=== PATIENT | female | born 1935 | race Caucasian/White ===

== ENCOUNTER 2018-01-25 09:01 | Emergency (ER) | payer MEDICARE, OTHER, SELFPAY ==
[2018-01-25 09:09] VITALS: BMI 25.8
[2018-01-25 09:30] VITALS: BP 189/55; PULSE 60; RESP 21; O2SAT 98
--- NOTE | 2018-01-25 09:51 | DI.RAD.S_ITS ---
PROCEDURE: XR CHEST 2V INDICATIONS: dyspnea TECHNIQUE: 2 views of the chest were acquired. COMPARISON: [facility], , CHEST 2 VIEW, 08/08/2017, 12:32. FINDINGS: Surgical changes and devices: None. Lungs and pleura: No pleural effusions or pneumothorax. Lungs are clear. Mediastinum: Mediastinal contours are normal. Heart size is normal. There is aortic atherosclerosis. Bones and chest wall: No suspicious bony abnormalities. Soft tissues appear unremarkable. IMPRESSION: Stable chest. No acute cardiopulmonary process is evident. Dictated by: Gómez Nunez M.D. on 01/25/2018 at 9:20 Approved by: Gómez Nunez M.D. on 01/25/2018 at 9:20
--- NOTE | 2018-01-25 09:58 | ED_ITS ---
HPI - SOB/Dyspnea General Chief Complaint: Shortness of Breath/Dyspnea Stated Complaint: SENT OVER FROM CLINIC SHORTNESS OF BREATH Time Seen by Provider: 01/25/18 09:36 Source: patient Mode of arrival: ambulatory Limitations: no limitations History of Present Illness Patient complains of chest tightness and dyspnea over the last week. She states that she has chronic dyspnea and has had it for years; however she states this a little more persistent than usual. Patient denies fevers, cough, sputum production, or sick contacts. She denies chest pain. She states that she is on antibiotics for a urinary tract infection, and wonders if this is the cause of her blood pressure going high this morning. She states that when she discovered her blood pressure was high, she contacted her primary care physician 's office, and they told her to come here as her doctor is out of town. Patient states she otherwise feels very well. Patient states she has not felt anxious. She states that other than a lifelong heart murmur and some palpitations, she has no known heart problems. MD Complaint: shortness of breath Onset (ago): week(s) (One) Context: recent illness (UTI) Relieving factors: nothing Exacerbating factors: exertion (Mildly) Known history of: other (Patient has no COPD, asthma, congestive heart failure, or history of coronary artery disease.) Associated symptoms: denies other symptoms Treatment prior to arrival: none Related Data Home Medications Medication Instructions Recorded Confirmed ezetimibe [Zetia] 10 mg PO Q DAY #0 10/16/12 01/25/18 insulin glargine [Lantus U-100 1 dose SQ QAM #0 10/16/12 01/25/18 Insulin] levothyroxine 112 mcg PO DAILY #0 10/16/12 01/25/18 lisinopril [Zestril] 20 mg PO QDAY #0 10/16/12 01/25/18 amlodipine [Norvasc] 2.5 mg PO QDAY #0 11/26/15 01/25/18 insulin lispro [Humalog U-100 0 u SQ DIRECTED #0 05/31/16 01/25/18 Insulin] atenolol 25 mg PO DAILY 01/25/18 01/25/18 chlorthalidone 25 mg PO DAILY 01/25/18 01/25/18 doxycycline monohydrate 1 cap PO BID 01/25/18 01/25/18 hydrochlorothiazide 1 tab PO DAILY 01/25/18 01/25/18 warfarin 2 mg PO QPM 01/25/18 01/25/18 Allergies Allergy/AdvReac Type Severity Reaction Status Date / Time kiwi Allergy Severe ANAPHYLAXIS Verified 01/25/18 09:09 meperidine AdvReac Mild I GO NUTS Verified 01/25/18 09:09 morphine AdvReac Mild DIZZY Verified 01/25/18 09:09 Review of Systems Review of Systems All systems reviewed & are unremarkable except as noted in HPI and below Constitutional Denies chills, Denies fever(s), Denies lethargy and Denies weakness Eyes Denies change in vision, Denies eye discharge, Denies irritation and Denies loss of vision ENT Ears, Nose, Mouth, and Throat: Denies change in voice, Denies neck pain and Denies sore throat Cardiovascular Denies chest pain, Denies irregular heart rhythm, Denies lightheadedness, Denies palpitations, Reports dyspnea and Denies orthopnea Respiratory Denies cough, Reports dyspnea and Denies wheezing Gastrointestinal Gastrointestinal: Denies abdominal pain, Denies change in bowel habits, Denies diarrhea, Denies nausea and Denies vomiting Genitourinary Denies hematuria, Denies flank pain, Denies urinary incontinence and Denies urinary urgency Musculoskeletal Denies neck pain Integumentary/Breasts Denies pruritus, Denies erythema, Denies rash and Denies wounds Neurologic Denies confusion, Denies loss of vision and Denies weakness Psychiatric Denies anxiety, Denies confusion, Denies depression, Denies homicidal ideation and Denies suicidal ideation Endocrine Denies palpitations Hematologic/Lymphatic Denies easy bruising Allergic/Immunologic Denies wheezing PFSH Medical History Palpitations (Acute) HTN (hypertension) (Acute) Surgical History No pertinent past surgical history (Acute) Social History Smoking Status: Never smoker Exam Initial Vital Signs Initial Vital Signs: Vital Signs Pulse Rate 60 01/25/18 09:30 Respiratory Rate 21 01/25/18 09:30 Blood Pressure 189/55 H 01/25/18 09:30 Pulse Oximetry 98 01/25/18 09:30 Const General: cooperative and well developed Nutritional Appearance: well nourished Orientation: alert, awake, oriented x3 and not confused [facility] Head: normocephalic and atraumatic Ears: external ears normal Nose: external nose normal and No nasal discharge Face and sinus: face symmetric and No dry mucous membranes Mouth: oral mucosae normal and moist mucous membranes Teeth and gingiva: dentition normal Eyes General: appearance normal, both eyes and all related structures Eyelids: eyelids normal Conjunctivae: conjunctivae normal Sclera: sclerae normal Pupils: PERRL EOM: EOM intact bilaterally Neck Neck: normal visual inspection, trachea midline, No lymphadenopathy, No midline deformity and No JVD Lymphatic: No lymphedema Chest Chest: normal inspection of the chest Resp Effort & Inspection: normal respiratory effort, able to speak in complete sentences, no respiratory distress and no use of accessory muscles Auscultation: clear to auscultation bilaterally, no rales, no rhonchi and no wheezes Cardio Rate: regular rate Rhythm: regular rhythm Heart Sounds: no click, no gallops, no murmurs and no rubs Pulses: normal peripheral pulses GI Inspection: non-distended Palpation: soft, no hepatosplenomegaly, No guarding, No pulsatile mass and No tender Auscultation: normal bowel sounds Back/Spine/Pelvis Back: No CVA tenderness Cervical Spine: cervical ROM normal and No pain with cervical ROM Thoracic/Lumbar Spine: thoracic and lumbar spine normal to inspection Skin General: no rashes or lesions noted, No jaundice and No petechiae Neuro General: alert, oriented x3, gait normal and no focal motor deficits Speech: speech normal Extrem General: full ROM, no clubbing, cyanosis or edema, no pedal edema and no calf tenderness Psych Appearance: well kempt Mental Status: mental status grossly normal Attitude: cooperative Thought Content: normal and suicidality Judgment: judgment good Course Course Narrative: Patient was quite well-appearing, and her respiratory exam was normal. Additionally, she was able to ambulate to and from the bathroom with absolutely no trouble whatsoever. Patient's EKG was unremarkable for acute issues at this time. I did work the patient up with a BNP and a chest x- ray. BNP was found to be mildly elevated at 340. Remainder of her workup was unremarkable. Orders Ordered: ED Orders 01/25/18 09:14 EKG-12 Lead Routine MDM - SOB/Dyspnea Medical Records Attestation: I reviewed the patient's medical records. Lab Data Lab Results 10/11/18 Range/Units 10:20 B-Natriuretic Peptide 340.0 H (<100) ECG Data Attestation: I personally reviewed and interpreted this ECG as follows: Interpretation: 12 lead EKG performed on January 25, 2018 at 0914: Regular ventricular rhythm with a rate of 61 beats per minute DC interval 168 milliseconds QRS duration 100 millisecond QTC interval 449 millisecond no ectopy interpretation: Sinus rhythm with occasional supraventricular premature complexes; moderate ST depression. Abnormal EKG as interpreted by ED MD. Discharge Plan Departure Patient Disposition: Home Clinical Impression: Dyspnea Discharge Date/Time: 01/25/18 11:47 Interventions: ED Discharge Assessment Last Done: 01/25/18 11:35 Instructions: DI for Shortness of Breath Activity Restrictions/Additional Instructions: Your chest x-ray looks good. Your lab for congestive heart failure was mildly elevated, which has been in the past. Please discuss with your doctor whether you need to be on medication for this. No emergent cause of your symptoms has been found. Prescriptions: No Action insulin glargine [Lantus U-100 Insulin] 100 UNIT/1 ML solution 1 dose SQ QAM Qty: 0 RF: 0 lisinopril [Zestril] 20 MG tablet 20 mg PO QDAY Qty: 0 RF: 0 levothyroxine 112 mcg Tablet 112 mcg PO DAILY Qty: 0 RF: 0 ezetimibe [Zetia] 10 MG tablet 10 mg PO Q DAY Qty: 0 RF: 0 amlodipine [Norvasc] 2.5 MG tablet 2.5 mg PO QDAY Qty: 0 RF: 0 insulin lispro [Humalog U-100 Insulin] 100 UNIT/1 ML solution SQ DIRECTED Qty: 0 RF: 0 atenolol 25 mg tablet 25 mg PO DAILY RF: 0 chlorthalidone 25 mg tablet 25 mg PO DAILY RF: 0 doxycycline monohydrate 100 mg capsule 1 cap PO BID RF: 0 warfarin 1 mg tablet 2 mg PO QPM RF: 0 hydrochlorothiazide 12.5 mg tablet 1 tab PO DAILY RF: 0 Referrals: Benigno Mahan MD [Primary Care Provider] -
[2018-01-25 10:00] VITALS: BP 185/46; PULSE 58; RESP 20; O2SAT 98
[2018-01-25 10:30] VITALS: BP 155/59; PULSE 62; RESP 13; O2SAT 99
[2018-01-25 11:07] VITALS: BP 151/45; PULSE 57; RESP 14; O2SAT 98
== END 2018-01-25 11:47 | disposition home or self-care (01) ==
PROVIDERS: Emergency Provider Emergency Medicine; PCP Family Medicine
DX: R06.00 Dyspnea, unspecified (principal); R07.89 Other chest pain
CPT/HCPCS: 36415; 71046; 83880; 93005; 93010; 99283; 99285

== ENCOUNTER → 2018-03-21 08:17 | Outpatient (CLI) | payer MEDICARE, OTHER, SELFPAY ==
--- NOTE | 2018-03-21 09:39 | P.PCN_ITS ---
Cardiac Stress Test Report Referral & Results Date Patient Seen: 03/21/18 Requesting provider: Benigno Mahan Indication: Dyspnea Rest ECG: Unremarkable Procedure Note: Today following both written and verbal informed consent the patient was exercised according to a standard Shukri protocol patient went for a total of 5 min 44 sec achieving a maximum heart rate of 140 for maximum systolic blood pressure of 170 for. This is approximately 7.0 METS. Exercise was terminated at this point because of inability the patient to continue. Patient was also given Cardiolite through a previously started Hep-Lock IV by the nuclear reactor operator approximately 1 minute prior to the cessation of exercise. Patient's oxygen saturation remained normal throughout With exercise she did develop up to about a mm of initially flat then downsloping ST segment depression in the inferior leads in leads V3 through V6. With cessation of activity the lateral leads rapidly returned to baseline but the inferior leads became more pronounced downsloping without as much depression. The slowly began to return to baseline as well over the 2-3 minutes of recovery Occasional PVCs identified at and exercise and early recovery Functional aerobic impairment rates-10% on the active scale or 10% better than average Impression: Evidence of ischemia in the inferior and far lateral leads as above. Perfusion imaging will be reported separately based on Cardiolite that was administered Excellent exercise capacity Please note: Actual ECG tracings can be found in the PACS system.
--- NOTE | 2018-03-22 18:05 | DI.NM.S_ITS ---
DATE OF SERVICE: 03/21/2018 PROCEDURE PERFORMED: Exercise treadmill stress and rest myocardial perfusion imaging with gating to assess ejection fraction and regional wall motion. ORDERING PROVIDER: Benigno Mahan MD INDICATIONS: The patient is an 82-year-old female with exertional dyspnea. EXERCISE TREADMILL TESTING:: The patient was able to exercise for a total of 5 minutes 44 seconds on a standard Shukri protocol suggesting good exercise capacity with an LAUREL of -10%. She had normal heart rate and blood pressure response to exercise, achieving a maximum heart rate of 144 bpm (105% of her predicted maximum). Her resting ECG shows baseline ST-segment abnormalities in the inferolateral leads which become accentuated with stress but remain nonspecific because of the baseline abnormality. She had no apparent chest discomfort. Oxygen saturation apparently was normal throughout. There were rare isolated PVCs but no concerning arrhythmia. At 5 minutes 8 seconds of exercise, at heart rate of 132 bpm, 26.4 mCi of technetium-99 Myoview was injected and the patient was imaged 15 minutes later using a gated SPECT acquisition protocol. The patient returned the following day and was reinjected with an additional 25.4 mCi of technetium-99 Myoview and was imaged 30 minutes later, again using a gated SPECT acquisition protocol. FINDINGS: 1. Raw Data: There is fairly good myocardial tracer uptake, although mild-to- moderate breast attenuation is present. The lung/heart ratio is normal at 0.39 with a normal TID ratio of 0.89. 2. Quantitative Gated SPECT: Post stress ejection fraction is estimated at 83% without any focal wall motion abnormality. The resting ejection fraction is estimated at 81% with a normal resting end-diastolic volume of 78 mL. 3. Myocardial Perfusion Imaging: Post stress supine images shows a fairly normal myocardial perfusion pattern with a very subtle defect in the distal inferolateral segment that completely resolves on prone imaging, revealing a completely normal perfusion pattern. There are no other concerning perfusion defects. The resting images show an identical perfusion pattern without any clear areas of improvement. CONCLUSION: 1. Normal myocardial perfusion study. 2. Small, subtle fixed distal inferolateral defect that resolves on prone imaging consistent with attenuation artifact. There is no evidence for any concerning myocardial ischemia or previous myocardial infarction. 3. Normal left ventricular systolic function without any focal wall motion abnormalities and normal left ventricular volumes. 4. Good exercise capacity with an LAUREL of -10% without angina. While there are some ST depressions noted, this is nonspecific because of baseline ST-segment abnormalities. Oxygen saturation remainsed normal throughout the study. 5. Compared with the previous study of 02/21/2017, an identical perfusion pattern is identified. Left ventricular systolic function is also unchanged, if not somewhat improved, on today's study. She had ST depression on her previous study that was felt to represent a false-positive. Thus, there has been no significant change from the previous exam. Jackie Orta - RS/shawna/ab doc#: [id number]/job#: [id number] dd: 03/22/2018 12:48:00 dt: 03/22/2018 17:47:00 DICTATING MD/COPIES TO: Benigno De Souza MD; Benigno Mahan MD COPIES MNE: OWEN TEJADA
== END ==
PROVIDERS: PCP Family Medicine; Visit Provider Family Medicine
DX: I25.9 Chronic ischemic heart disease, unspecified (principal); R06.00 Dyspnea, unspecified
CPT/HCPCS: 78452; 93016; 93017; 93018; A9502

== ENCOUNTER → 2018-05-04 12:41 | Outpatient (CLI) | payer MEDICARE, OTHER, SELFPAY ==
--- NOTE | 2018-05-04 | DI.US.S_ITS ---
PROCEDURE: US ARTERIAL DUPLEX LE BI INDICATIONS: Peripheral vascular disease, unspecified TECHNIQUE: Color and pulse Doppler interrogation was performed of both lower extremity arterial systems, with image documentation. COMPARISON: None. FINDINGS: Right lower extremity: Common femoral artery: 106 cm/sec, with biphasic flow. Deep femoral artery: 74 cm/sec, with biphasic flow. Proximal superficial femoral artery: 112 cm/sec, with biphasic flow. Mid superficial femoral artery: 96 cm/sec, with biphasic flow. Distal superficial femoral artery: 119 cm/sec, with biphasic flow. Popliteal artery: 89 cm/sec, with biphasic flow. Posterior tibial artery: 125 cm/sec, with biphasic flow. Anterior tibial artery/dorsalis pedis: No flow seen distally. Ortiz-scale imaging description: Atherosclerotic plaque can be seen. Left lower extremity: Common femoral artery: 142 cm/sec, with triphasic flow. Deep femoral artery: 73 cm/sec, with biphasic flow. Proximal superficial femoral artery: 120 cm/sec, with triphasic flow. Mid superficial femoral artery: 110 cm/sec, with triphasic flow. Distal superficial femoral artery: 90 cm/sec, with biphasic flow. Popliteal artery: 111 cm/sec, with monophasic flow. Posterior tibial artery: 76 cm/sec, with monophasic flow. Anterior tibial artery/dorsalis pedis: No flow can be seen distally Ortiz-scale imaging description: Atherosclerotic plaque can be seen throughout. IMPRESSION: Occluded bilateral distal anterior tibial arteries. Atherosclerotic plaque seen throughout. Dictated by: Garrison Naranjo M.D. on 05/04/2018 at 15:00 Approved by: Garrison Naranjo M.D. on 05/04/2018 at 15:04
== END ==
PROVIDERS: PCP Family Medicine; Visit Provider Family Medicine
DX: I70.203 Unspecified atherosclerosis of native arteries of extremities, bilateral legs (principal)
CPT/HCPCS: 93925

== ENCOUNTER → 2018-05-08 15:04 | Outpatient (CLI) | payer MEDICARE, OTHER, SELFPAY | PROVIDERS: PCP Family Medicine; Visit Provider Family Medicine | DX: I73.9 Peripheral vascular disease, unspecified (principal); L97.819 Non-pressure chronic ulcer of other part of right lower leg with unspecified severity; L97.829 Non-pressure chronic ulcer of other part of left lower leg with unspecified severity; I87.2 Venous insufficiency (chronic) (peripheral); E11.622 Type 2 diabetes mellitus with other skin ulcer; L08.9 Local infection of the skin and subcutaneous tissue, unspecified; Z79.52 Long term (current) use of systemic steroids | CPT/HCPCS: 11042; 87070; 87075; 87205 ==

== ENCOUNTER → 2018-05-15 14:26 | Outpatient (CLI) | payer MEDICARE, OTHER, SELFPAY | PROVIDERS: PCP Family Medicine; Visit Provider Family Medicine | DX: I70.238 Atherosclerosis of native arteries of right leg with ulceration of other part of lower leg (principal); L97.812 Non-pressure chronic ulcer of other part of right lower leg with fat layer exposed; E11.622 Type 2 diabetes mellitus with other skin ulcer; Z79.52 Long term (current) use of systemic steroids | CPT/HCPCS: 11042 ==

== ENCOUNTER → 2018-05-22 14:29 | Outpatient (CLI) | payer MEDICARE, OTHER, SELFPAY | PROVIDERS: PCP Family Medicine; Visit Provider Family Medicine | DX: I87.2 Venous insufficiency (chronic) (peripheral) (principal); I70.203 Unspecified atherosclerosis of native arteries of extremities, bilateral legs; L97.812 Non-pressure chronic ulcer of other part of right lower leg with fat layer exposed; T23.222A Burn of second degree of single left finger (nail) except thumb, initial encounter; E11.622 Type 2 diabetes mellitus with other skin ulcer; Z79.52 Long term (current) use of systemic steroids | CPT/HCPCS: 16020; 97597; 99213 ==

== ENCOUNTER → 2018-05-29 10:01 | Outpatient (CLI) | payer MEDICARE, OTHER, SELFPAY | PROVIDERS: PCP Family Medicine; Visit Provider Family Medicine | DX: I87.2 Venous insufficiency (chronic) (peripheral) (principal); L97.812 Non-pressure chronic ulcer of other part of right lower leg with fat layer exposed; E11.622 Type 2 diabetes mellitus with other skin ulcer; I70.203 Unspecified atherosclerosis of native arteries of extremities, bilateral legs; Z79.52 Long term (current) use of systemic steroids | CPT/HCPCS: 99213 ==

== ENCOUNTER → 2018-06-05 13:21 | Outpatient (CLI) | payer MEDICARE, OTHER, SELFPAY | PROVIDERS: PCP Family Medicine; Visit Provider Family Medicine | DX: I87.2 Venous insufficiency (chronic) (peripheral) (principal); L97.812 Non-pressure chronic ulcer of other part of right lower leg with fat layer exposed; E11.622 Type 2 diabetes mellitus with other skin ulcer; Z79.52 Long term (current) use of systemic steroids; I70.203 Unspecified atherosclerosis of native arteries of extremities, bilateral legs | CPT/HCPCS: 87070; 87075; 87077; 87147; 87186; 87205; 99213 ==

== ENCOUNTER → 2018-06-12 13:26 | Outpatient (CLI) | payer MEDICARE, OTHER, SELFPAY | PROVIDERS: PCP Family Medicine; Visit Provider Family Medicine | DX: I87.2 Venous insufficiency (chronic) (peripheral) (principal); I70.203 Unspecified atherosclerosis of native arteries of extremities, bilateral legs; L97.812 Non-pressure chronic ulcer of other part of right lower leg with fat layer exposed; E11.622 Type 2 diabetes mellitus with other skin ulcer; Z79.52 Long term (current) use of systemic steroids; L08.9 Local infection of the skin and subcutaneous tissue, unspecified; B95.7 Other staphylococcus as the cause of diseases classified elsewhere | CPT/HCPCS: 97597; 99213 ==

== ENCOUNTER → 2018-06-12 14:17 | Outpatient (CLI) | payer MEDICARE, OTHER, SELFPAY ==
--- NOTE | 2018-06-12 | DI.US.S_ITS ---
PROCEDURE: US VENOUS INSUFFICIENCY LTD INDICATIONS: VENOUS INSUFFICIENCY. History of right lateral calf nonhealing wound since January 2018. TECHNIQUE: Real time scanning was performed of the lower extremity venous system, with imaging documentation, as well as Color and pulse Doppler interrogation. COMPARISON: [facility], , US ARTERIAL DUPLEX LE BI, 05/04/2018, 13:09. [facility], US, PVE UNILATERAL RIGHT, 05/27/2016, 17:46. [facility], , RENAL COMPLETE, 04/30/2015, 12:48. [facility], , ABDOMEN COMPLETE, 07/22/2011, 8:08. FINDINGS: RIGHT LOWER EXTREMITY: The deep veins are normally compressible, and free of intraluminal thrombus. Color and pulse Doppler demonstrate normal intravascular flow. There is normal augmentation with distal compression maneuver. Great saphenous vein (GSV): Saphenofemoral junction (SFJ): 5 mm. No reflux. Proximal GSV: 4.5 mm. No reflux. Mid GSV: 4.6 mm. Venous reflux identified. Distal GSV: 3.5 mm. Venous reflux identified. Calf GSV: 3.1 mm proximally and 2.1 mm at the mid calf. Venous reflux is identified in the proximal calf GSV. Small saphenous vein (SSV): The SSV measures 5 mm near the saphenopopliteal junction and demonstrates venous reflux. The SSV measures 9 mm in the proximal calf and demonstrates venous reflux. The SSV measures 3 mm in the mid calf and demonstrates venous reflux. [employer] veins: There is a planer feeder vein in the right thigh approximately 20 cm proximal/superior to the right knee and 8 cm posterior, with a diameter of 2.2 mm and demonstrating venous reflux. There is a planer feeder vein in the right calf measuring 18 cm proximal/superior to the right heel and 8 cm posterior, with no venous reflux seen. Additional findings: There is a prominent varicose vein which extends posteriorly to the area of the patient's reported wound approximately 32 cm from the right heel. IMPRESSION: 1. No deep venous thrombosis of the right lower extremity. 2. Venous reflux identified within portions of the right great saphenous vein and right small saphenous vein as described above. There is additionally venous reflux within a planer feeder vein of the right thigh approximately 20 cm proximal/superior to the right knee. 3. Right lower extremity varicose vein identified in the region of the patient's reported area of nonhealing wound. Dictated by: Carmine Alaniz M.D. on 06/12/2018 at 17:52 Approved by: Carmine Alaniz M.D. on 06/12/2018 at 18:12
== END ==
PROVIDERS: PCP Family Medicine; Visit Provider Family Medicine
DX: I87.2 Venous insufficiency (chronic) (peripheral) (principal); E11.622 Type 2 diabetes mellitus with other skin ulcer; I70.203 Unspecified atherosclerosis of native arteries of extremities, bilateral legs; L97.812 Non-pressure chronic ulcer of other part of right lower leg with fat layer exposed; L08.9 Local infection of the skin and subcutaneous tissue, unspecified; B95.7 Other staphylococcus as the cause of diseases classified elsewhere; Z79.52 Long term (current) use of systemic steroids
CPT/HCPCS: 93971; 97597

== ENCOUNTER → 2018-06-19 13:34 | Outpatient (CLI) | payer MEDICARE, OTHER, SELFPAY | PROVIDERS: PCP Family Medicine; Visit Provider Family Medicine | DX: I87.2 Venous insufficiency (chronic) (peripheral) (principal); I70.238 Atherosclerosis of native arteries of right leg with ulceration of other part of lower leg; L97.812 Non-pressure chronic ulcer of other part of right lower leg with fat layer exposed; E11.622 Type 2 diabetes mellitus with other skin ulcer; B95.7 Other staphylococcus as the cause of diseases classified elsewhere; L08.9 Local infection of the skin and subcutaneous tissue, unspecified | CPT/HCPCS: 97597 ==

== ENCOUNTER 2018-06-25 15:15 | Outpatient (RCR) | payer MEDICARE, OTHER, SELFPAY ==
--- NOTE | 2018-06-21 16:40 | PT.OIE ---
Current Diagnoses Benign paroxysmal vertigo, unspecified ear (06/21/18) Benign paroxysmal vertigo, bilateral (06/21/18) Dizziness and giddiness (06/21/18) Past Medical History (Last Updated 01/25/18 @ 09:57 by Anne-Marie Hand MD) Palpitations (Acute) HTN (hypertension) (Acute) Past Surgical History (Last Updated 01/25/18 @ 09:57 by Anne-Marie Hand MD) No pertinent past surgical history (Acute) Provider Visit Care Team Role Provider Type Benigno Mahan MD Attending Provider Physician Primary Care Provider Specialty: Family Practice Address: [facility] [place], [address] Email: [email or web address] Physical Therapy Initial Evaluation PT-OP-A Visit Information Start: 06/21/18 16:23 Freq: Status: Active Protocol: Document 06/21/18 15:15 DCW (Rec: 06/21/18 16:40 DCW [id number]) Out-Patient Physical Therapy Visit Information Visit Information Visit Type Initial Evaluation Visit Start Time 15:15 Visit Stop Time 16:00 Total Visit Minutes 45 Visit Number 1 Number of DEBURRER STRIP Visits 0 Evaluation Information Evaluation Date 06/21/18 PT-OP-B Current Condition Start: 06/21/18 16:23 Freq: Status: Active Protocol: Document 06/21/18 15:15 DCW (Rec: 06/21/18 16:40 DCW [id number]) Current Condition History of Current Condition Onset Date 3 weeks Current Complaints Sudden onset of position- dependent vertigo History of Current Condition Pt is an 82 year old female complaining of a three week history motion-induced vertigo . Pt notes that three weeks ago, she stood up from bed and the whole room started going in circles. She was seen by her PCP, who gave her Meclizine, which she reports helped make her symptoms less severe, but it was still bad when getting out of bed. Pt reports that following her vertigo getting out of bed, she still feels disoriented the rest of the day. Pt reports episodes last 1-2 minutes. Pt denies recent hearing changes, tinnitus, diplopia, dysarthria, discoordination, or decreased mentation/consciousness. Pt reports symptoms are waxing/ waning in nature. Pt denies hx of arrhythmia, head trauma, seizure, migraines, back/neck problems, CVA, anxiety/panic disorders, depression, or excessive smoking or drinking. Pt does note a history of HTN , High cholesterol, and DM II, however believes they are all well controlled with medication. Current Functional Impairments (Reported) Functional Limitations- ADL's Rotational vertigo when exiting bed in the morning PT-OP-C Subjective Start: 06/21/18 16:23 Freq: Status: Active Protocol: Document 06/21/18 15:15 DCW (Rec: 06/21/18 16:40 DCW [id number]) Patient Questionnaires Dizziness Handicap Inventory DHI Score 40% DHI Functional Impairment 40 to 59% Impaired (Score 40- 59) PT-OP-O Vestibular Start: 06/21/18 16:23 Freq: Status: Active Protocol: Document 06/21/18 15:15 DCW (Rec: 06/21/18 16:40 DCW [id number]) Vestibular Assessment Screening Tests Vestibular Artery Screen Negative Sharp-Nimo Test Negative Auditory Tests Koo Test Negative Rinne Test Negative Air Conduction Results Equal Visual Testing Smooth Pursuits Horizontal Negative Smooth Pursuits Vertical Negative Saccades Horizontal Negative Gaze Evoked Nystagmus With Fixation Negative Gaze Evoked Nystagmus Without Fixation Negative Heave Test Positive Bilateral Thrust Head Positive Bilateral Head Shake Negative Spontaneous Nystagmus Negative Positional Testing [place]-Hallpike Negative Left Negative Right Rolling Test Negative Left Negative Right Sidelying Test Negative Left Negative Right Comments Vestibular Comments Due to limitations of her cervical spine and increased thoracic kyphosis, pt was unable to properly position herself during Jose Alberto-Hallpike. Side-lying test was then performed bilaterally. PT-OP-Q Treatments Start: 06/21/18 16:23 Freq: Status: Active Protocol: Document 06/21/18 15:15 DCW (Rec: 06/21/18 16:40 DCW [id number]) Canalithic Repositioning BPPV Treatment Vasyl Affected Canal(s) Right posterior? Reps x1 PT-OP-T Assessment and Plan Start: 06/21/18 16:23 Freq: Status: Active Protocol: Document 06/21/18 15:15 DCW (Rec: 06/21/18 16:40 DCW [id number]) Physical Therapy Assessment Rehab Potential Rehabilitation Potential Good Evaluation Complexity Number of Personal Factors/Comorbidities 0 Number of Body Systems Impaired 1-2 Clinical Presentation at Evaluation Unstable Impairments Impairments Balance Vestibular Goals Two Impairment Pt scored 40% disability on Dizziness Handicap Inventory Short Term Goal (STG) Pt to score at most 15% disability on DHI STG Duration 07/22/18 One Impairment Pt complains of rotational vertigo when getting out of bed Short Term Goal (STG) Pt to report no episodes of vertigo when exiting bed for one full week STG Duration 07/22/18 Assessment Summary Assessment Pt's entire vestibular examination was negative, with the exception of mildly positive thrust and heave tests, which is fairly common with age-related vestibular loss. Pt's history, however, is strongly suggestive of BPPV , and as all other testing was negative, and her off-handed comment regarding thinking she may be somewhat worse if she lays on her right side, a right-sided Vasyl maneuver was performed, as the posterior canal is by far (~95%) the most likely semi-circular canal to have loose otoconia. Following the Vasyl maneuver, pt reported that she actually feels quite a bit better already. Pt was educated on BPPV, expectations for treatment, possible recurrence (BPPV has a ~50% recurrence rate in the five years following treatment), and post -Vasyl restrictions. Pt to return in ~1 week for a follow -up appointment, and intermittently afterward as indicated for treatment of BPPV. Physical Therapy Plan Frequency and Duration Frequency of Treatment 1x/Week Duration of Treatment 6 weeks Plan of Care Start Date 06/21/18 Plan of Care End Date 08/02/18 Therapeutic Interventions Therapeutic Interventions Balance Training Canalithic Repositioning Vestibular Rehabilitation Next Visit Focus/Plan Next Note Type Treatment Note Next Visit Plan Further positional testing and CRM as indicated
--- NOTE | 2018-06-21 16:40 | PT.OPPOC ---
Current Diagnoses Benign paroxysmal vertigo, unspecified ear (06/21/18) Benign paroxysmal vertigo, bilateral (06/21/18) Dizziness and giddiness (06/21/18) Provider Visit Care Team Role Provider Type Benigno Mahan MD Attending Provider Physician Primary Care Provider Specialty: Family Practice Address: [facility] [place], [address] Email: [email or web address] Plan Of Care PT-OP-T Assessment and Plan Start: 06/21/18 16:23 Freq: Status: Active Protocol: Document 06/21/18 15:15 DCW (Rec: 06/21/18 16:40 DCW [id number]) Physical Therapy Assessment Rehab Potential Rehabilitation Potential Good Evaluation Complexity Number of Personal Factors/Comorbidities 0 Number of Body Systems Impaired 1-2 Clinical Presentation at Evaluation Unstable Impairments Impairments Balance Vestibular Goals Two Impairment Pt scored 40% disability on Dizziness Handicap Inventory Short Term Goal (STG) Pt to score at most 15% disability on DHI STG Duration 07/22/18 One Impairment Pt complains of rotational vertigo when getting out of bed Short Term Goal (STG) Pt to report no episodes of vertigo when exiting bed for one full week STG Duration 07/22/18 Assessment Summary Assessment Pt's entire vestibular examination was negative, with the exception of mildly positive thrust and heave tests, which is fairly common with age-related vestibular loss. Pt's history, however, is strongly suggestive of BPPV , and as all other testing was negative, and her off-handed comment regarding thinking she may be somewhat worse if she lays on her right side, a right-sided Vasyl maneuver was performed, as the posterior canal is by far (~95%) the most likely semi-circular canal to have loose otoconia. Following the Vasyl maneuver, pt reported that she actually feels quite a bit better already. Pt was educated on BPPV, expectations for treatment, possible recurrence (BPPV has a ~50% recurrence rate in the five years following treatment), and post -Vasyl restrictions. Pt to return in ~1 week for a follow -up appointment, and intermittently afterward as indicated for treatment of BPPV. Physical Therapy Plan Frequency and Duration Frequency of Treatment 1x/Week Duration of Treatment 6 weeks Plan of Care Start Date 06/21/18 Plan of Care End Date 08/02/18 Therapeutic Interventions Therapeutic Interventions Balance Training Canalithic Repositioning Vestibular Rehabilitation Next Visit Focus/Plan Next Note Type Treatment Note Next Visit Plan Further positional testing and CRM as indicated Plan of Care Dates Plan of Care Start Date 06/21/18 Plan of Care End Date 08/02/18 Please Sign and Return: I have reviewed this Plan of Care and certify that the skilled therapy services above are required to meet the patient?s needs. Physician Signature Date Printed Name and Credentials Clinical Instructor Signature Printed Name and Credentials
--- NOTE | 2018-06-25 16:19 | PT.OTN ---
Current Diagnoses Benign paroxysmal vertigo, bilateral (06/25/18) Physical Therapy Treatment Note PT-OP-A Visit Information Start: 06/21/18 16:23 Freq: Status: Active Protocol: Document 06/25/18 15:30 DCW (Rec: 06/25/18 16:19 DCW [id number]) Out-Patient Physical Therapy Visit Information Visit Information Visit Type Treatment Note Visit Note Pt 15 minutes late Visit Start Time 15:30 Visit Stop Time 15:48 Total Visit Minutes 18 Visit Number 2 Number of MANAGER OF APPLICATION DEVELOPMENT Visits 0 Evaluation Information Evaluation Date 06/21/18 PT-OP-B Current Condition Start: 06/21/18 16:23 Freq: Status: Active Protocol: Document 06/21/18 15:15 DCW (Rec: 06/21/18 16:40 DCW [id number]) Current Condition History of Current Condition Onset Date 3 weeks Current Complaints Sudden onset of position- dependent vertigo History of Current Condition Pt is an 82 year old female complaining of a three week history motion-induced vertigo . Pt notes that three weeks ago, she stood up from bed and the whole room started going in circles. She was seen by her PCP, who gave her Meclizine, which she reports helped make her symptoms less severe, but it was still bad when getting out of bed. Pt reports that following her vertigo getting out of bed, she still feels disoriented the rest of the day. Pt reports episodes last 1-2 minutes. Pt denies recent hearing changes, tinnitus, diplopia, dysarthria, discoordination, or decreased mentation/consciousness. Pt reports symptoms are waxing/ waning in nature. Pt denies hx of arrhythmia, head trauma, seizure, migraines, back/neck problems, CVA, anxiety/panic disorders, depression, or excessive smoking or drinking. Pt does note a history of HTN , High cholesterol, and DM II, however believes they are all well controlled with medication. Current Functional Impairments (Reported) Functional Limitations- ADL's Rotational vertigo when exiting bed in the morning PT-OP-C Subjective Start: 06/21/18 16:23 Freq: Status: Active Protocol: Document 06/25/18 15:30 DCW (Rec: 06/25/18 16:19 DCW [id number]) OP-PT Subjective Patient Comments Patient Comments I feel much better, most of the time. Every now and then, theres just a little bit of an issue. PT-OP-O Vestibular Start: 06/21/18 16:23 Freq: Status: Active Protocol: Document 06/21/18 15:15 DCW (Rec: 06/21/18 16:40 DCW [id number]) Vestibular Assessment Screening Tests Vestibular Artery Screen Negative Sharp-Nimo Test Negative Auditory Tests Koo Test Negative Rinne Test Negative Air Conduction Results Equal Visual Testing Smooth Pursuits Horizontal Negative Smooth Pursuits Vertical Negative Saccades Horizontal Negative Gaze Evoked Nystagmus With Fixation Negative Gaze Evoked Nystagmus Without Fixation Negative Heave Test Positive Bilateral Thrust Head Positive Bilateral Head Shake Negative Spontaneous Nystagmus Negative Positional Testing [place]-Hallpike Negative Left Negative Right Rolling Test Negative Left Negative Right Sidelying Test Negative Left Negative Right Comments Vestibular Comments Due to limitations of her cervical spine and increased thoracic kyphosis, pt was unable to properly position herself during Jose Alberto-Hallpike. Side-lying test was then performed bilaterally. PT-OP-Q Treatments Start: 06/21/18 16:23 Freq: Status: Active Protocol: Document 06/25/18 15:30 DCW (Rec: 06/25/18 16:19 DCW [id number]) Canalithic Repositioning BPPV Treatment Vasyl Affected Canal(s) Right posterior? Reps x1 PT-OP-T Assessment and Plan Start: 06/21/18 16:23 Freq: Status: Active Protocol: Document 06/25/18 15:30 DCW (Rec: 06/25/18 16:19 DCW [id number]) Physical Therapy Assessment Impairments Impairments Balance Vestibular Goals Two Impairment Pt scored 40% disability on Dizziness Handicap Inventory Short Term Goal (STG) Pt to score at most 15% disability on DHI STG Duration 07/22/18 One Impairment Pt complains of rotational vertigo when getting out of bed Short Term Goal (STG) Pt to report no episodes of vertigo when exiting bed for one full week STG Duration 07/22/18 Assessment Summary Assessment Pt examination continues to be negative, but with her continued history which is strongly suggestive of BPPV, along with her reports of substantial improvement following her right-sided Vasyl, 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 Another R-sided Vasyl was performed today, but pt experienced no real symptoms during procedure. Pt to call for follow-up visit with change or worsening symptoms. If she does not call for a follow-up visit within one month, she will be discharged at that time. Physical Therapy Plan Frequency and Duration Frequency of Treatment 1x/Week Duration of Treatment 6 weeks Plan of Care Start Date 06/21/18 Plan of Care End Date 08/02/18 Therapeutic Interventions Therapeutic Interventions Balance Training Canalithic Repositioning Vestibular Rehabilitation Next Visit Focus/Plan Next Note Type Treatment Note Next Visit Plan Further positional testing and CRM as indicated
--- NOTE | 2018-07-27 13:55 | PT.OPDS ---
Current Diagnoses Benign paroxysmal vertigo, bilateral (06/25/18) Provider Visit Care Team Role Provider Type Benigno Mahan MD Attending Provider Physician Primary Care Provider Specialty: Family Practice Address: [facility] [place], [address] Email: [email or web address] Visit Number Visit Number 2 Discharge Summary PT-OP-B Current Condition Start: 06/21/18 16:23 Freq: Status: Active Protocol: Document 06/21/18 15:15 DCW (Rec: 06/21/18 16:40 DCW [id number]) Current Condition History of Current Condition Onset Date 3 weeks Current Complaints Sudden onset of position- dependent vertigo History of Current Condition Pt is an 82 year old female complaining of a three week history motion-induced vertigo . Pt notes that three weeks ago, she stood up from bed and the whole room started going in circles. She was seen by her PCP, who gave her Meclizine, which she reports helped make her symptoms less severe, but it was still bad when getting out of bed. Pt reports that following her vertigo getting out of bed, she still feels disoriented the rest of the day. Pt reports episodes last 1-2 minutes. Pt denies recent hearing changes, tinnitus, diplopia, dysarthria, discoordination, or decreased mentation/consciousness. Pt reports symptoms are waxing/ waning in nature. Pt denies hx of arrhythmia, head trauma, seizure, migraines, back/neck problems, CVA, anxiety/panic disorders, depression, or excessive smoking or drinking. Pt does note a history of HTN , High cholesterol, and DM II, however believes they are all well controlled with medication. Current Functional Impairments (Reported) Functional Limitations- ADL's Rotational vertigo when exiting bed in the morning PT-OP-C Subjective Start: 06/21/18 16:23 Freq: Status: Active Protocol: Document 06/25/18 15:30 DCW (Rec: 06/25/18 16:19 DCW [id number]) OP-PT Subjective Patient Comments Patient Comments I feel much better, most of the time. Every now and then, theres just a little bit of an issue. PT-OP-O Vestibular Start: 06/21/18 16:23 Freq: Status: Active Protocol: Document 06/21/18 15:15 DCW (Rec: 06/21/18 16:40 DCW [id number]) Vestibular Assessment Screening Tests Vestibular Artery Screen Negative Sharp-Nimo Test Negative Auditory Tests Koo Test Negative Rinne Test Negative Air Conduction Results Equal Visual Testing Smooth Pursuits Horizontal Negative Smooth Pursuits Vertical Negative Saccades Horizontal Negative Gaze Evoked Nystagmus With Fixation Negative Gaze Evoked Nystagmus Without Fixation Negative Heave Test Positive Bilateral Thrust Head Positive Bilateral Head Shake Negative Spontaneous Nystagmus Negative Positional Testing [place]-Hallpike Negative Left Negative Right Rolling Test Negative Left Negative Right Sidelying Test Negative Left Negative Right Comments Vestibular Comments Due to limitations of her cervical spine and increased thoracic kyphosis, pt was unable to properly position herself during [place]-Hallpike. Side-lying test was then performed bilaterally. PT-OP-T Assessment and Plan Start: 06/21/18 16:23 Freq: Status: Active Protocol: Document 07/27/18 13:53 DCW (Rec: 07/27/18 13:55 DC [id number]) Physical Therapy Assessment Impairments Impairments Balance Vestibular Assessment Summary Assessment Pt was instructed to phone clinic and schedule a follow- up visit with continued or worsening symptoms. Pt has not scheduled any future visits, and will be discharged from skilled therapy at this time. Physical Therapy Plan Discharge Physical Therapy Discharge Reasons No Longer Attending PT Next Visit Focus/Plan Next Note Type Discharge Summary
== END 2018-08-28 11:57 ==
LOC: PHYS 15:15
PROVIDERS: PCP Family Medicine; Visit Provider Family Medicine
DX: H81.13 Benign paroxysmal vertigo, bilateral (principal)
CPT/HCPCS: 95992; 97140; 97161

== ENCOUNTER → 2018-06-26 13:18 | Outpatient (CLI) | payer MEDICARE, OTHER, SELFPAY | PROVIDERS: PCP Family Medicine; Visit Provider Family Medicine | DX: I87.2 Venous insufficiency (chronic) (peripheral) (principal); L97.812 Non-pressure chronic ulcer of other part of right lower leg with fat layer exposed; E11.622 Type 2 diabetes mellitus with other skin ulcer; Z79.52 Long term (current) use of systemic steroids; M79.604 Pain in right leg | CPT/HCPCS: 11042; 87070; 87075; 87077; 87186; 87205 ==

== ENCOUNTER → 2018-07-03 09:02 | Outpatient (CLI) | payer MEDICARE, OTHER, SELFPAY | PROVIDERS: PCP Family Medicine; Visit Provider Family Medicine | DX: I70.238 Atherosclerosis of native arteries of right leg with ulceration of other part of lower leg (principal); L97.812 Non-pressure chronic ulcer of other part of right lower leg with fat layer exposed; E11.622 Type 2 diabetes mellitus with other skin ulcer; L08.9 Local infection of the skin and subcutaneous tissue, unspecified | CPT/HCPCS: 97597; 99213 ==

== ENCOUNTER → 2018-07-10 09:51 | Outpatient (CLI) | payer MEDICARE, OTHER, SELFPAY | PROVIDERS: PCP Family Medicine; Visit Provider Family Medicine | DX: I70.238 Atherosclerosis of native arteries of right leg with ulceration of other part of lower leg (principal); L97.812 Non-pressure chronic ulcer of other part of right lower leg with fat layer exposed; E11.622 Type 2 diabetes mellitus with other skin ulcer | CPT/HCPCS: 97597 ==

== ENCOUNTER → 2018-07-11 15:28 | Outpatient (REF) | payer MEDICARE, OTHER, SELFPAY ==
[2018-07-11 15:42] LABS: INR 2.4 (0.9-1.3); Prothrombin Time 28.5 SECONDS (10.1-12.7)
== END ==
LOC: LAB 15:28
PROVIDERS: PCP Family Medicine; Visit Provider Family Medicine
DX: Z79.01 Long term (current) use of anticoagulants (principal)
CPT/HCPCS: 85610

== ENCOUNTER → 2018-07-12 14:23 | Outpatient (CLI) | payer MEDICARE, OTHER, SELFPAY | PROVIDERS: PCP Family Medicine; Visit Provider Family Medicine | DX: I70.238 Atherosclerosis of native arteries of right leg with ulceration of other part of lower leg (principal); L97.811 Non-pressure chronic ulcer of other part of right lower leg limited to breakdown of skin | CPT/HCPCS: 99212 ==

== ENCOUNTER → 2018-07-17 09:41 | Outpatient (CLI) | payer MEDICARE, OTHER, SELFPAY | PROVIDERS: PCP Family Medicine; Visit Provider Family Medicine | DX: I87.2 Venous insufficiency (chronic) (peripheral) (principal); L97.812 Non-pressure chronic ulcer of other part of right lower leg with fat layer exposed; E11.622 Type 2 diabetes mellitus with other skin ulcer | CPT/HCPCS: 97597 ==

== ENCOUNTER → 2018-07-23 17:12 | Outpatient (CLI) | payer MEDICARE, OTHER, SELFPAY ==
[2018-07-23 17:59] LABS: Appearance Urine UA SL CLOUDY; Bilirubin Urine UA NEGATIVE (NEGATIVE); Color Urine UA YELLOW; Glucose Urine UA NEGATIVE (Negative); Ketones Urine UA NEGATIVE (NEGATIVE); Leukocyte Esterase Urine UA 2+ (NEGATIVE); Nitrite Urine UA NEGATIVE (Negative); Occult Blood Urine UA 1+ (Negative); Protein Urine UA NEGATIVE (Negative); Specific Gravity Urine UA 1.025 (1.000-1.035); Urobilinogen Urine UA 0.2 E.U./dL (0.2); pH Urine UA 5.5 (4.5-8.0)
[2018-07-23 18:08] LABS: Amorphous Sediment Urine 1+; Bacteria Urine Few (2-10); Mucus Urine 1+ (Negative); RBC Urine 0-1/HPF (0-5/HPF); Squamous Epithelial Cell Urine 1-5 /HPF (0-5/HPF); WBC Urine >100/HPF (0-5/HPF)
== END ==
PROVIDERS: PCP Family Medicine; Visit Provider Family Medicine
DX: N39.0 Urinary tract infection, site not specified (principal)
CPT/HCPCS: 81001; 87077; 87086; 87186

== ENCOUNTER → 2018-07-24 09:04 | Outpatient (CLI) | payer MEDICARE, OTHER, SELFPAY | PROVIDERS: PCP Family Medicine; Visit Provider Family Medicine | DX: I87.2 Venous insufficiency (chronic) (peripheral) (principal); L97.812 Non-pressure chronic ulcer of other part of right lower leg with fat layer exposed; I70.203 Unspecified atherosclerosis of native arteries of extremities, bilateral legs; E11.622 Type 2 diabetes mellitus with other skin ulcer; Z79.52 Long term (current) use of systemic steroids | CPT/HCPCS: 97597 ==

== ENCOUNTER → 2018-07-31 09:44 | Outpatient (CLI) | payer MEDICARE, OTHER, SELFPAY | PROVIDERS: PCP Family Medicine; Visit Provider Family Medicine | DX: I70.238 Atherosclerosis of native arteries of right leg with ulceration of other part of lower leg (principal); L97.812 Non-pressure chronic ulcer of other part of right lower leg with fat layer exposed; E11.622 Type 2 diabetes mellitus with other skin ulcer; Z79.52 Long term (current) use of systemic steroids | CPT/HCPCS: 97597 ==

== ENCOUNTER 2018-08-08 16:05 | Emergency (ER) | payer MEDICARE, OTHER, SELFPAY ==
[2018-08-08] VITALS (8 sets, daily range): BP systolic 105–179; BP diastolic 40–82; PULSE 58–70; RESP 14–23; TEMP 36.4; O2SAT 94–100; BMI 25.8
--- NOTE | 2018-08-08 16:16 | DI.RAD.S_ITS ---
PROCEDURE: XR CHEST 1V INDICATIONS: chough sob TECHNIQUE: One view of the chest was acquired. COMPARISON: [facility], , XR CHEST 2V, 01/25/2018, 9:59. [facility], , CHEST 2 VIEW, 08/08/2017, 12:32. FINDINGS: Surgical changes and devices: None. Lungs and pleura: Lungs are clear. No pleural effusions or pneumothorax. Mediastinum: Mediastinal contours appear normal. Heart size is normal. Bones and chest wall: No suspicious bony lesions. Overlying soft tissues appear unremarkable. IMPRESSION: Normal for age, source of current cough and shortness of breath symptoms is not seen. Dictated by: Casimiro Jade M.D. on 08/08/2018 at 16:47 Approved by: Casimiro Jade M.D. on 08/08/2018 at 16:47
[2018-08-08] MEDS: ALBUTEROL/IPRATROPIUM 3 ML AMPUL INH (16:25)
--- NOTE | 2018-08-08 16:25 | ED_ITS ---
HPI - SOB/Dyspnea General Chief Complaint: Shortness of Breath/Dyspnea Stated Complaint: dehydration Time Seen by Provider: 08/08/18 16:10 Source: patient Mode of arrival: wheelchair Limitations: no limitations History of Present Illness Patient is an 82-year-old female sent in from her PCP for hypotension. She says she has not felt well for the last 5 days. She does have a cough denies any dizziness or lightheadedness. She has no chest pain. She states that she coughs only when she lies down. No known history of congestive heart failure. She denies any shortness of breath with exertion. She denies any fever. Decreased oral intake. MD Complaint: shortness of breath Related Data Home Medications Medication Instructions Recorded Confirmed Lantus U-100 Insulin 1 dose SQ QAM #0 10/16/12 08/08/18 ezetimibe [Zetia] 10 mg PO DAILY #0 10/16/12 08/08/18 lisinopril [Zestril] 20 mg PO DAILY #0 10/16/12 08/08/18 Humalog U-100 Insulin 0 u SQ DIRECTED #0 05/31/16 08/08/18 atenolol 25 mg PO DAILY 01/25/18 08/08/18 chlorthalidone 25 mg PO DAILY 01/25/18 08/08/18 warfarin 2 mg PO QPM 01/25/18 01/25/18 allopurinol 100 mg PO DAILY 08/08/18 08/08/18 amlodipine 5 mg PO DAILY 08/08/18 08/08/18 levothyroxine 125 mcg PO DAILY 08/08/18 08/08/18 prednisone 5 mg PO DAILY 08/08/18 08/08/18 rivaroxaban [Xarelto] 15 mg PO DAILY 08/08/18 08/08/18 Allergies Allergy/AdvReac Type Severity Reaction Status Date / Time kiwi Allergy Severe ANAPHYLAXIS Verified 08/08/18 16:11 meperidine AdvReac Mild I GO NUTS Verified 08/08/18 16:11 morphine AdvReac Mild DIZZY Verified 08/08/18 16:11 Review of Systems Review of Systems ROS Unobtainable: All systems reviewed & are unremarkable except as noted in HPI and below Constitutional Reports body ache(s), Denies fever(s) and Denies frequent falls Eyes Denies change in vision, Denies eye discharge, Denies irritation and Denies loss of vision Cardiovascular Denies chest pain, Denies irregular heart rhythm, Denies lightheadedness, Denies palpitations, Denies dyspnea, Denies dyspnea on exertion and Denies orthopnea Respiratory Denies cough, Denies dyspnea, Denies dyspnea on exertion and Denies wheezing Gastrointestinal Gastrointestinal: Denies abdominal pain, Denies change in bowel habits, Denies diarrhea, Denies nausea and Denies vomiting Musculoskeletal Denies back pain, Denies muscle weakness, Denies numbness and Denies tingling Integumentary/Breasts Denies pruritus, Denies erythema, Denies rash and Denies wounds Neurologic Denies frequent falls, Denies loss of vision, Denies numbness and Denies tingling Endocrine Denies palpitations Allergic/Immunologic Denies wheezing [facility] Medical History Palpitations (Acute) HTN (hypertension) (Acute) Surgical History No pertinent past surgical history (Acute) Social History (Updated 01/25/18 @ 09:57 by Anne-Marie Hand MD) Smoking Status: Never smoker Social History Smoking Status: Never smoker Exam Initial Vital Signs Initial Vital Signs: Vital Signs Pulse Rate 65 08/08/18 16:11 Respiratory Rate 18 08/08/18 16:11 Blood Pressure 170/66 H 08/08/18 16:11 Pulse Oximetry 97 08/08/18 16:11 GENERAL: Alert pleasant elderly female no acute distress HEENT: Head atraumatic,EOMI, pupils reactive, face symmetric, no JVD CARDIOVASCULAR: Regular rate and rhythm without murmurs, rubs or gallops. RESPIRATORY: Coughing with deep breaths ABDOMEN: Soft, nontender. Normoactive bowel sounds all 4 quadrants. No guarding or rebound. : No CVA tenderness EXTREMITIES: Normal range of motion, no clubbing or edema. Neurovascularly intact NEUROLOGICAL: Alert and oriented x4.Normal gait and speech. Cranial nerves II through XII grossly intact. SKIN: Warm, dry, no laceration, no petechiae, no rashes or lesions. Course Orders Ordered: ED Orders 08/08/18 16:14 EKG-12 Lead Stat 08/08/18 16:16 Consult to Respiratory Therapy Evaluate & Treat XR chest 1V Stat 08/08/18 16:20 B Type Natriuretic Peptide Stat Complete Blood Count AUTO DIFF Stat Comprehensive Metabolic Panel Stat Magnesium Stat Procalcitonin Stat Troponin & CK Cardiac Panel Stat 08/08/18 16:33 Lactate (Lactic Acid) Stat 08/08/18 18:22 Prothrombin Time INR Stat 08/08/18 18:42 Influenza A and B by PCR Rapid Stat Discontinued Medications Albuterol/Ipratropium (Duoneb) 3 ml INH NOW ONE Stop: 08/08/18 16:17 Last Admin: 08/08/18 16:25 Dose: 3 ml Sodium Chloride (Normal Saline 0.9%) 1,000 mls @ 1,000 mls/hr IV BOLUS ONE Stop: 08/08/18 18:15 Last Admin: 08/08/18 17:43 Dose: 1,000 mls/hr Sodium Chloride (Normal Saline 0.9%) 1,000 mls @ 1,000 mls/hr IV BOLUS ONE Stop: 08/08/18 18:15 Vital Signs - 8 hr 08/08/18 16:11 08/08/18 16:17 08/08/18 16:30 Temperature 97.5 F L Pulse Rate 65 66 67 Respiratory Rate 18 14 20 Blood Pressure 170/66 H Blood Pressure [Right Arm] 179/48 H Pulse Oximetry 97 100 08/08/18 16:48 08/08/18 18:00 08/08/18 18:30 Temperature Pulse Rate 60 64 63 Respiratory Rate 23 15 18 Blood Pressure Blood Pressure [Right Arm] 105/51 L 149/40 H 142/82 H Pulse Oximetry 98 98 100 MDM - SOB/Dyspnea Lab Data Attestation: I reviewed the patient's lab results. Result diagrams: 08/08/18 16:20 08/08/18 16:20 Lab Results 08/08/18 08/08/18 08/08/18 Range/Units 16:20 16:20 16:20 WBC 7.2 (4.5-11.0) X10^3/uL RBC 4.11 (4.0-5.2) X10^6/uL Hgb 11.6 L (12.0-16.0) g/dL Hct 34.5 L (36-46) % MCV 84.1 (80-100) fL MCH 28.3 (26-34) PG MCHC 33.7 (30-36) % RDW 15.4 H (11.6-14.8) % Plt Count 224 (150-400) X10^3/uL Neut % (Auto) 64.1 (50-75) % Lymph % (Auto) 18.3 L (25-40) % [place] % (Auto) 14.4 H (3-14) % Eos % (Auto) 2.3 (2-4) % Baso % (Auto) 0.9 (0-2) % Neut # (Auto) 4600 (8584-4685) /uL Lymph # (Auto) 1300 (1917-4104) /uL [place] # (Auto) 1000 H (0-900) /uL Eos # (Auto) 200 (0-450) /uL Baso # (Auto) 100 (0-100) /uL Sodium 135 L (137-145) mmol/L Potassium 3.8 (3.4-5.1) mmol/L Chloride 99 (98-107) mmol/L Carbon Dioxide 22 (22-32) mmol/L BUN 56 H (7-17) mg/dL Creatinine 2.20 H (0.52-1.04) mg/dL Estimated GFR 21.3 L (>60) mL/min BUN/Creatinine Ratio 25.5 H (6-22) Glucose 93 (80-110) mg/dL Lactate (0.7-2.1) mmol/L Calcium 9.0 (8.4-10.2) mg/dL Magnesium 2.1 (1.6-2.3) mg/dL Total Bilirubin 0.4 (0.2-1.3) mg/dL AST 32 (14-36) IU/L ALT 23 (9-52) IU/L Alkaline Phosphatase 70 (38-126) U/L Total Creatine Kinase 41 (30-135) U/L CK-MB (CK-2) TNP CK-MB (CK-2) Rel Index TNP Troponin I 0.012 (0.01-0.034) ng/mL B-Natriuretic Peptide < 100 (<100) Total Protein 7.7 (6.3-8.2) g/dL Albumin 4.2 (3.5-5.0) g/dL Globulin 3.5 (1.7-4.1) g/dL Albumin/Globulin Ratio 1.2 (1.0-2.8) Procalcitonin 0.17 (<0.5) ng/mL 08/08/18 Range/Units 16:33 WBC (4.5-11.0) X10^3/uL RBC (4.0-5.2) X10^6/uL Hgb (12.0-16.0) g/dL Hct (36-46) % MCV (80-100) fL MCH (26-34) PG MCHC (30-36) % RDW (11.6-14.8) % Plt Count (150-400) X10^3/uL Neut % (Auto) (50-75) % Lymph % (Auto) (25-40) % [place] % (Auto) (3-14) % Eos % (Auto) (2-4) % Baso % (Auto) (0-2) % Neut # (Auto) (4772-7358) /uL Lymph # (Auto) (6364-1097) /uL [place] # (Auto) (0-900) /uL Eos # (Auto) (0-450) /uL Baso # (Auto) (0-100) /uL Sodium (137-145) mmol/L Potassium (3.4-5.1) mmol/L Chloride (98-107) mmol/L Carbon Dioxide (22-32) mmol/L BUN (7-17) mg/dL Creatinine (0.52-1.04) mg/dL Estimated GFR (>60) mL/min BUN/Creatinine Ratio (6-22) Glucose (80-110) mg/dL Lactate 1.4 (0.7-2.1) mmol/L Calcium (8.4-10.2) mg/dL Magnesium (1.6-2.3) mg/dL Total Bilirubin (0.2-1.3) mg/dL AST (14-36) IU/L ALT (9-52) IU/L Alkaline Phosphatase (38-126) U/L Total Creatine Kinase (30-135) U/L CK-MB (CK-2) CK-MB (CK-2) Rel Index Troponin I (0.01-0.034) ng/mL B-Natriuretic Peptide (<100) Total Protein (6.3-8.2) g/dL Albumin (3.5-5.0) g/dL Globulin (1.7-4.1) g/dL Albumin/Globulin Ratio (1.0-2.8) Procalcitonin (<0.5) ng/mL Imaging Data Chest x-ray: Radiologist's impression: PROCEDURE: XR CHEST 1V INDICATIONS: chough sob TECHNIQUE: One view of the chest was acquired. COMPARISON: [facility], , XR CHEST 2V, 01/25/2018, 9:59. [facility], , CHEST 2 VIEW, 08/08/2017, 12:32. FINDINGS: Surgical changes and devices: None. Lungs and pleura: Lungs are clear. No pleural effusions or pneumothorax. Mediastinum: Mediastinal contours appear normal. Heart size is normal. Bones and chest wall: No suspicious bony lesions. Overlying soft tissues appear unremarkable. IMPRESSION: Normal for age, source of current cough and shortness of breath symptoms is not seen. Dictated by: Casimiro Jade M.D. on 08/08/2018 at 16:47 ECG Data Attestation: I personally reviewed and interpreted this ECG as follows: Prior ECG tracings: available for review Interpretation: Normal sinus rhythm rate [address] changes no T-wave inversions similar previous EKG MDM Narrative Medical decision making narrative: The patient does have a are increased creatinine. No significant leukocytosis no pneumonia on x-ray no signs of CHF. At this time she is likely dehydrated from decreased oral intake. She is now drinking fluids. She wants to go home. She is given 2 L of IV fluids recommended outpatient follow-up and repeat blood work is at the end of the week. Patient agreeable to plan I spoke with Dr. alba with happy to recheck her kidney function. she is to call office tomorrow to schedule appointment. Request UA and influenza B checked as well Discharge Plan Departure Patient Disposition: Home Clinical Impression: Acute dehydration Instructions: Dehydration Activity Restrictions/Additional Instructions: *You have been diagnosed with dehydration *What to do: Increase fluid intake , no evidence of infection or need for antibiotics at this time. Recommend having your kidney function rechecked with her PCP by Monday *Continue to take medications as directed *Follow up with your primary care provider-call the office tomorrow morning and someone will see and evaluate you when recheck your kidneys *Return to ER if you should have increasing weakness, dizziness lightheadedness, chest or any new, worsening or concerning symptoms Prescriptions: No Action Lantus U-100 Insulin 100 UNIT/1 ML solution 1 dose SQ QAM Qty: 0 RF: 0 lisinopril [Zestril] 20 MG tablet 20 mg PO DAILY Qty: 0 RF: 0 ezetimibe [Zetia] 10 MG tablet 10 mg PO DAILY Qty: 0 RF: 0 Humalog U-100 Insulin 100 UNIT/1 ML solution SQ DIRECTED Qty: 0 RF: 0 prednisone 5 mg tablet 5 mg PO DAILY RF: 0 amlodipine 5 mg tablet 5 mg PO DAILY RF: 0 allopurinol 100 mg tablet 100 mg PO DAILY RF: 0 levothyroxine 125 mcg tablet 125 mcg PO DAILY RF: 0 Xarelto 15 mg tablet 15 mg PO DAILY RF: 0 atenolol 25 mg tablet 25 mg PO DAILY RF: 0 chlorthalidone 25 mg tablet 25 mg PO DAILY RF: 0 warfarin 1 mg tablet 2 mg PO QPM RF: 0 Referrals: Benigno Mahan MD [Primary Care Provider] -
[2018-08-08 16:28] LABS: Add Manual Diff / Slide Review NO; Basophils Absolute Auto 100 /uL (0-100); Basophils Percent Auto 0.9 % (0-2); Eosinophils Absolute Auto 200 /uL (0-450); Eosinophils Percent Auto 2.3 % (2-4); Hematocrit 34.5 % (36-46); Hemoglobin 11.6 g/dL (12.0-16.0); Lymphocytes Absolute Auto 1300 /uL (1100-4500); Lymphocytes Percent Auto 18.3 % (25-40); Mean Corpuscular HGB Conc 33.7 % (30-36); Mean Corpuscular Hemoglobin 28.3 PG (26-34); Mean Corpuscular Volume 84.1 fL (80-100); Monocytes Absolute Auto 1000 /uL (0-900); Monocytes Percent Auto 14.4 % (3-14); Neutrophils Absolute Auto 4600 /uL (1500-7000); Neutrophils Percent Auto 64.1 % (50-75); Platelet Count 224 X10^3/uL (150-400); Red Blood Cell Count 4.11 X10^6/uL (4.0-5.2); Red Cell Distribution Width 15.4 % (11.6-14.8); White Blood Cell Count 7.2 X10^3/uL (4.5-11.0)
[2018-08-08 16:44] LABS: Alanine Aminotransferase 23 IU/L (9-52); Albumin 4.2 g/dL (3.5-5.0); Albumin Globulin Ratio 1.2 (1.0-2.8); Alkaline Phosphatase 70 U/L (38-126); Aspartate Aminotransferase 32 IU/L (14-36); BUN Creatinine Ratio 25.5 (6-22); Bilirubin Total 0.4 mg/dL (0.2-1.3); Blood Urea Nitrogen 56 mg/dL (7-17); Carbon Dioxide 22 mmol/L (22-32); Chloride 99 mmol/L (98-107); Creatine Kinase 41 U/L (30-135); Estimated Glomerular Filt Rate 21.3 mL/min (>60); Globulin 3.5 g/dL (1.7-4.1); Glucose 93 mg/dL (80-110); HEMOLYSIS < 15 (0-50); Magnesium 2.1 mg/dL (1.6-2.3); Potassium 3.8 mmol/L (3.4-5.1); Sodium 135 mmol/L (137-145); Total Protein 7.7 g/dL (6.3-8.2)
[2018-08-08 16:45] LABS: B Type Natriuretic Peptide < 100 (<100)
[2018-08-08 16:53] LABS: Lactate (Lactic Acid) 1.4 mmol/L (0.7-2.1)
[2018-08-08 16:55] LABS: Troponin I 0.012 ng/mL (0.01-0.034)
[2018-08-08 17:05] LABS: Procalcitonin 0.17 ng/mL (<0.5)
[2018-08-08] MEDS: SODIUM CHLORIDE 0.9% 1,000 ML 1000 ML IV ×2 (17:43→19:08)
[2018-08-08 19:21] LABS: INR 2.8 (0.9-1.3); Prothrombin Time 33.1 SECONDS (10.1-12.7)
--- NOTE | 2018-08-08 19:52 | PC.NURSE ---
Stopped IV fluids per Dr Rock. Pt feeling like she is coughing more than when she arrived.
--- NOTE | 2018-08-08 19:53 | PC.NURSE ---
Pts cough has increased and crackles seem worse than when she arrived.
[2018-08-08] MEDS: ALBUTEROL HFA PREPACK 1 BOX MISC (19:58)
== END 2018-08-08 21:12 | disposition home or self-care (01) ==
PROVIDERS: Emergency Provider Emergency Medicine; PCP Family Medicine
DX: E86.0 Dehydration (principal); R05 Cough; R06.02 Shortness of breath
CPT/HCPCS: 36591; 71045; 80053; 81003; 82550; 83605; 83735; 83880; 84145; 84484; 85025; 85610; 87400; 93005; 94640; 96360; 96361; 99285

== ENCOUNTER → 2018-08-14 11:01 | Outpatient (CLI) | payer MEDICARE, OTHER, SELFPAY | PROVIDERS: PCP Family Medicine; Visit Provider Family Medicine | DX: Z48.817 Encounter for surgical aftercare following surgery on the skin and subcutaneous tissue (principal); E11.9 Type 2 diabetes mellitus without complications | CPT/HCPCS: 99212; 99213 ==

== ENCOUNTER → 2018-09-05 08:37 | Outpatient (CLI) | payer MEDICARE, OTHER, SELFPAY ==
--- NOTE | 2018-09-05 | DI.CT.S_ITS ---
PROCEDURE: CT ABDOMEN PELVIS WO CON INDICATIONS: Unspecified abdominal pain TECHNIQUE: After the administration of oral contrast, 5 mm thick sections acquired from the diaphragms to the symphysis. 5 mm coronal and sagittal reformats were performed. For radiation dose reduction, the following was used: automated exposure control, adjustment of mA and/or kV according to patient size. COMPARISON: [facility], CT, ABDOMEN WITH CONTRAST, 08/16/2013, 12:24. [facility], CT, CHEST/ABDOMEN WITHOUT CONTRAST, 07/28/2015, 7:36. FINDINGS: Image quality: Excellent. ABDOMEN: Lung bases: Lung bases are clear. Heart size is normal. There is coronary artery and aortic calcification consistent with atherosclerosis. Solid organs: Liver is normal in size. Gallbladder is surgically absent. Pancreas is normal in size. Spleen is normal in size. No adrenal nodules. Both kidneys are normal in size, without hydronephrosis or nephrolithiasis. Peritoneum and bowel: Bowel loops demonstrate normal wall thickness and caliber. There are numerous sigmoid diverticula. No evidence for active diverticulitis. Normal appendix. No free fluid or air. Nodes and vessels: No retroperitoneal or mesenteric adenopathy by size criteria. Aorta and inferior vena cava are normal in size. Severe aortic and iliac artery calcifications. Miscellaneous: No ventral hernias. PELVIS: Genitourinary: Bladder wall thickness is normal. Uterus is absent. Left ovary is normal. Right ovary is not identified. No pathological free fluid in pelvis. Miscellaneous: No inguinal hernias or adenopathy. Bones: No suspicious bony lesions. No vertebral body compression fractures. IMPRESSION: 1. Diverticulosis without acute diverticulitis 2. Normal appendix. 3. Severe atherosclerosis. Dictated by: Nemea Jenkins M.D. on 09/05/2018 at 9:16 Approved by: Neema Jenkins M.D. on 09/05/2018 at 9:23
== END ==
PROVIDERS: PCP Family Medicine; Visit Provider Family Medicine
DX: R10.9 Unspecified abdominal pain (principal); K57.30 Diverticulosis of large intestine without perforation or abscess without bleeding; I25.10 Atherosclerotic heart disease of native coronary artery without angina pectoris; I70.0 Atherosclerosis of aorta; Z90.49 Acquired absence of other specified parts of digestive tract
CPT/HCPCS: 74176

== ENCOUNTER → 2018-10-15 12:50 | Outpatient (CLI) | payer MEDICARE, OTHER, SELFPAY | PROVIDERS: PCP Family Medicine; Visit Provider Family Medicine | DX: M85.852 Other specified disorders of bone density and structure, left thigh (principal); Z78.0 Asymptomatic menopausal state | CPT/HCPCS: 77080 ==

== ENCOUNTER → 2018-10-31 11:17 | Outpatient (CLI) | payer MEDICARE, OTHER, SELFPAY ==
--- NOTE | 2018-10-31 | DI.US.S_ITS ---
PROCEDURE: US PERIPH VENOUS LOW EXTREM RT INDICATIONS: RIGHT LEG PAIN AND SWELLING TECHNIQUE: Real-time imaging, as well as color and pulse Doppler interrogation, were performed of the lower extremity deep veins from the inguinal ligament to the popliteal fossa. COMPARISON: [facility], , PVE UNILATERAL RIGHT, 05/27/2016, 17:46. FINDINGS: The common femoral, femoral and popliteal veins are normally compressible, and free of intraluminal thrombus. Color and pulse Doppler demonstrate normal phasic intraluminal flow. There is normal augmentation response to distal compression maneuver. At the area of pain within the right medial thigh, there is a heterogeneous region, without discrete masses or hematoma identified. Soft tissue edema without additional focal abnormality seen of the area of right ankle swelling. IMPRESSION: No DVT can be seen. Dictated by: Garrison Naranjo M.D. on 10/31/2018 at 11:37 Approved by: Garrison Naranjo M.D. on 10/31/2018 at 11:38
== END ==
PROVIDERS: PCP Family Medicine; Visit Provider Family Medicine
DX: M79.604 Pain in right leg (principal); R22.41 Localized swelling, mass and lump, right lower limb
CPT/HCPCS: 93971

== ENCOUNTER 2019-01-28 11:18 | Emergency (ER) | payer MEDICARE, OTHER, SELFPAY ==
[2019-01-28 11:22] VITALS: BP 231/94; PULSE 96; RESP 20; TEMP 36.7; O2SAT 94; BMI 26.6
--- NOTE | 2019-01-28 11:24 | DI.RAD.S_ITS ---
PROCEDURE: XR CHEST 1V INDICATIONS: chest pain TECHNIQUE: One view of the chest was acquired. COMPARISON: [facility], CR, XR CHEST 1V, 08/08/2018, 16:27. FINDINGS: Surgical changes and devices: None. Lungs and pleura: Chronic interstitial changes are present. No pleural effusions or pneumothorax. Mediastinum: Mediastinal contours appear normal. Heart size is normal. Bones and chest wall: No suspicious bony lesions. Overlying soft tissues appear unremarkable. IMPRESSION: No acute pulmonary process. Dictated by: Sara Laguerre M.D. on 01/28/2019 at 11:52 Approved by: Sara Laguerre M.D. on 01/28/2019 at 11:54
[2019-01-28 11:35] VITALS: BP 212/67; PULSE 84; RESP 18; O2SAT 100
[2019-01-28 11:48] VITALS: BP 197/61; PULSE 75; RESP 15; O2SAT 100
[2019-01-28 11:54] LABS: Add Manual Diff / Slide Review NO; Basophils Absolute Auto 100 /uL (0-100); Eosinophils Absolute Auto 100 /uL (0-450); Eosinophils Percent Auto 1.1 % (2-4); Hematocrit 36.2 % (36-46); Hemoglobin 11.9 g/dL (12.0-16.0); Lymphocytes Absolute Auto 1000 /uL (1100-4500); Lymphocytes Percent Auto 9.9 % (25-40); Mean Corpuscular HGB Conc 32.8 % (30-36); Mean Corpuscular Hemoglobin 28.4 PG (26-34); Mean Corpuscular Volume 86.4 fL (80-100); Monocytes Absolute Auto 800 /uL (0-900); Monocytes Percent Auto 7.3 % (3-14); Neutrophils Absolute Auto 8300 /uL (1500-7000); Neutrophils Percent Auto 80.7 % (50-75); Platelet Count 291 X10^3/uL (150-400); Red Blood Cell Count 4.19 X10^6/uL (4.0-5.2); Red Cell Distribution Width 15.8 % (11.6-14.8); White Blood Cell Count 10.3 X10^3/uL (4.5-11.0)
[2019-01-28 12:00] VITALS: BP 174/61; PULSE 78; RESP 18; O2SAT 98
[2019-01-28 12:01] LABS: INR 2.7 (0.9-1.3); Prothrombin Time 31.4 SECONDS (10.1-12.7)
[2019-01-28 12:04] LABS: PTT Partial Thromboplastin Tim 44 SECONDS (26.4-36.2)
[2019-01-28 12:10] LABS: Alanine Aminotransferase 14 IU/L (9-52); Albumin 4.2 g/dL (3.5-5.0); Albumin Globulin Ratio 1.2 (1.0-2.8); Alkaline Phosphatase 87 U/L (38-126); Aspartate Aminotransferase 26 IU/L (14-36); BUN Creatinine Ratio 22.5 (6-22); Bilirubin Total 0.6 mg/dL (0.2-1.3); Blood Urea Nitrogen 36 mg/dL (7-17); Calcium 9.7 mg/dL (8.4-10.2); Carbon Dioxide 24 mmol/L (22-32); Chloride 105 mmol/L (98-107); Creatine Kinase 42 U/L (30-135); Estimated Glomerular Filt Rate 30.7 mL/min (>60); Globulin 3.4 g/dL (1.7-4.1); Glucose 148 mg/dL (80-110); HEMOLYSIS < 15 (0-50); Lipase 175 U/L (23-300); Potassium 3.5 mmol/L (3.4-5.1); Sodium 141 mmol/L (137-145); Total Protein 7.6 g/dL (6.3-8.2)
--- NOTE | 2019-01-28 12:16 | ED.ARRPALP ---
HPI - Arrhythmia/Palpitations General Chief Complaint: Arrhythmia/Palpitations Stated Complaint: Heart is racing Time Seen by Provider: 01/28/19 12:09 Source: patient Mode of arrival: Ambulatory Limitations: no limitations History of Present Illness HPI narrative: Patient is an 83-year-old female with a prior history of atrial fibrillation. She is on Xarelto. Here for evaluation of palpitations. Patient states that yesterday afternoon she started to feel like her heart was racing. She had no chest pain or shortness of breath during the episode. States she was somewhat lightheaded. She thinks that it started yesterday afternoon. Continued into the evening. She thought that she had it last evening when she went to bed. She also thought that it was still present this morning when she woke up. States she slept last night without any problems. At some point prior to arriving here in the emergency department the symptoms stopped. She does have a heart rate monitor which showed that her heart rate was in the 120s to 150s she states that she has been taking the medications. No chest pain. Related Data Home Medications Medication Instructions Recorded Confirmed Lantus U-100 Insulin 22 unit SQ QAM #0 10/16/12 01/28/19 ezetimibe [Zetia] 10 mg PO DAILY #0 10/16/12 01/28/19 insulin lispro [Humalog U-100 10 - 15 u SQ QID PRN #0 05/31/16 01/28/19 Insulin] atenolol 25 mg PO DAILY 01/25/18 01/28/19 chlorthalidone 25 mg PO DAILY 01/25/18 01/28/19 allopurinol 100 mg PO DAILY 08/08/18 01/28/19 levothyroxine 125 mcg PO DAILY 08/08/18 01/28/19 prednisone 10 mg PO DAILY 08/08/18 01/28/19 rivaroxaban [Xarelto] 15 mg PO DAILY 08/08/18 01/28/19 colchicine [Colcrys] See Rx Instructions .ROUTE 01/28/19 01/28/19 .COMPLEX PRN MDD 3 tab insulin glargine [Lantus Solostar 20 unit SUBCUT QPM 01/28/19 01/28/19 U-100 Insulin] meclizine 12.5 - 25 mg PO BEDTIME PRN 01/28/19 01/28/19 vit C,R-Nx-lhbbp-lutein-zeaxan 1 cap PO BID 01/28/19 01/28/19 [PreserVision AREDS-2] Allergies Allergy/AdvReac Type Severity Reaction Status Date / Time jillwi Allergy Severe ANAPHYLAXIS Verified 08/08/18 16:11 meperidine AdvReac Mild I GO NUTS Verified 08/08/18 16:11 morphine AdvReac Mild DIZZY Verified 08/08/18 16:11 Review of Systems Constitutional Constitutional: Denies fever(s) Cardiovascular Cardiovascular: Denies chest pain, Reports palpitations and Denies dyspnea Respiratory Respiratory: Denies dyspnea Gastrointestinal Gastrointestinal: Denies abdominal pain, Denies nausea and Denies vomiting Musculoskeletal Musculoskeletal: Denies myalgias and Denies arthralgias Integumentary/Breasts Skin/Breast: Denies lesions and Denies rash Endocrine Endocrine: Reports palpitations Hematologic/Lymphatic Hematologic/Lymphatic: Denies easy bleeding and Denies easy bruising Allergic/Immunologic Allergic/Immunologic: Denies urticaria Patient History Medical History Medical History HTN (hypertension) (Inactive) HTN (hypertension) (Acute) Hypoglycemia (Inactive) Palpitations (Acute) Paroxysmal atrial fibrillation (Inactive) SOB (shortness of breath) (Inactive) Social History Social History Smoking Status: Never smoker Exam Initial Vital Signs Initial Vital Signs: Vital Signs Temperature 98.1 F 01/28/19 11:22 Pulse Rate 96 H 01/28/19 11:22 Respiratory Rate 20 01/28/19 11:22 Blood Pressure 231/94 H 01/28/19 11:22 Pulse Oximetry 94 01/28/19 11:22 Const General: cooperative, healthy appearing, comfortable, well developed, well groomed and No acute distress Orientation: alert, awake and oriented x3 [facility] Head: normal to inspection and normocephalic Resp Effort & Inspection: normal respiratory effort Auscultation: clear to auscultation bilaterally Cardio Rate: regular rate Rhythm: regular rhythm Pulses: radial pulses present GI Inspection: non-distended Palpation: soft, No firm and No tender Skin Lesions: no lesions Rashes: no rashes Neuro General: alert, awake and oriented x3 Cognition: normal cognition Speech: speech normal Extrem General: normal to inspection, capillary refill normal and No edema Psych Appearance: grossly normal and well kempt Course Orders Ordered: ED Orders 01/28/19 11:24 XR chest 1V Stat EKG-12 Lead Stat 01/28/19 11:43 Complete Blood Count AUTO DIFF Stat Comprehensive Metabolic Panel Stat Lipase Stat Partial Thromboplastin Time Stat Prothrombin Time INR Stat Troponin & CK Cardiac Panel Stat Vital Signs Vital signs: Vital Signs - 8 hr 01/28/19 11:22 01/28/19 11:35 01/28/19 11:48 Temperature 98.1 F Pulse Rate 96 H 84 75 Respiratory Rate 20 18 15 Blood Pressure 231/94 H Blood Pressure [Right Arm] 212/67 H 197/61 H Pulse Oximetry 94 100 100 01/28/19 12:00 01/28/19 12:43 Temperature Pulse Rate 78 74 Respiratory Rate 18 16 Blood Pressure Blood Pressure [Right Arm] 174/61 H 196/58 H Pulse Oximetry 98 97 MDM - Arrhythmia/Palpitations Lab Data Attestation: I reviewed the patient's lab results. Result diagrams: 01/28/19 11:43 01/28/19 11:43 Labs: Lab Results 01/28/19 01/28/19 01/28/19 Range/Units 11:43 11:43 11:43 WBC 10.3 (4.5-11.0) X10^3/uL RBC 4.19 (4.0-5.2) X10^6/uL Hgb 11.9 L (12.0-16.0) g/dL Hct 36.2 (36-46) % MCV 86.4 (80-100) fL MCH 28.4 (26-34) PG MCHC 32.8 (30-36) % RDW 15.8 H (11.6-14.8) % Plt Count 291 (150-400) X10^3/uL Neut % (Auto) 80.7 H (50-75) % Lymph % (Auto) 9.9 L (25-40) % [place] % (Auto) 7.3 (3-14) % Eos % (Auto) 1.1 L (2-4) % Baso % (Auto) 1.0 (0-2) % Neut # (Auto) 8300 H (9816-4823) /uL Lymph # (Auto) 1000 L (8216-7014) /uL [place] # (Auto) 800 (0-900) /uL Eos # (Auto) 100 (0-450) /uL Baso # (Auto) 100 (0-100) /uL PT 31.4 H (10.1-12.7) SECONDS INR 2.7 H (0.9-1.3) APTT 44 H (26.4-36.2) SECONDS Sodium 141 (137-145) mmol/L Potassium 3.5 (3.4-5.1) mmol/L Chloride 105 (98-107) mmol/L Carbon Dioxide 24 (22-32) mmol/L BUN 36 H (7-17) mg/dL Creatinine 1.60 H (0.52-1.04) mg/dL Estimated GFR 30.7 L (>60) mL/min BUN/Creatinine Ratio 22.5 H (6-22) Glucose 148 H (80-110) mg/dL Calcium 9.7 (8.4-10.2) mg/dL Total Bilirubin 0.6 (0.2-1.3) mg/dL AST 26 (14-36) IU/L ALT 14 (9-52) IU/L Alkaline Phosphatase 87 (38-126) U/L Total Creatine Kinase 42 (30-135) U/L CK-MB (CK-2) TNP CK-MB (CK-2) Rel Index TNP Troponin I 0.030 (0.01-0.034) ng/mL Total Protein 7.6 (6.3-8.2) g/dL Albumin 4.2 (3.5-5.0) g/dL Globulin 3.4 (1.7-4.1) g/dL Albumin/Globulin Ratio 1.2 (1.0-2.8) Lipase 175 (23-300) U/L Imaging Data Chest x-ray: Radiologist's impression: [address] [address] XRay Report Signed Patient: Jackie Orta FMR#: [id number] : 5Acct:[id number] Age/Sex: 83 / FDate of Service: 01/28/19 Loc: ED Accession Number: [id number] Procedure: XR chest 1V Ordering Provider: Bebo Rock D.O. PROCEDURE: XR CHEST 1V INDICATIONS: chest pain TECHNIQUE: One view of the chest was acquired. COMPARISON: [facility], CR, XR CHEST 1V, 08/08/2018, 16:27. FINDINGS: Surgical changes and devices: None. Lungs and pleura: Chronic interstitial changes are present. No pleural effusions or pneumothorax. Mediastinum: Mediastinal contours appear normal. Heart size is normal. Bones and chest wall: No suspicious bony lesions. Overlying soft tissues appear unremarkable. IMPRESSION: No acute pulmonary process. Dictated by: Sara Laguerre M.D. on 01/28/2019 at 11:52 Approved by: Sara Laguerre M.D. on 01/28/2019 at 11:54 ECG Data Attestation: I personally reviewed and interpreted this ECG as follows: Prior ECG tracings: not available for review Interpretation: Sinus rhythm Ventricular rate of 93 Normal axis Normal QRS Normal QTC Nonspecific ST T wave changes MDM Narrative Medical decision making narrative: Patient has had no chest pain. She has been in sinus rhythm with a normal rate since arrival here to the emergency department. Chest x-ray is unremarkable. Nonspecific changes on the EKG. I would not be surprised the patient did have an episode of atrial fibrillation last evening. During that time she did not have any chest pain or shortness of breath. She was somewhat lightheaded but had no episodes of passing out. She is currently on anticoagulation. Will hold on further workup for now. Low suspicion for ACS. I do suspect that the slight bump in the troponin was secondary to the tachycardia over the past 12 hours. Will hold on further workup for now. Patient was instructed of contact her primary doctor about the indications for Holter monitor. She is given return precautions. She expressed understanding and agreement with plan. Discharge Plan Departure Patient Disposition: Home Clinical Impression: Palpitations Discharge Date/Time: 01/28/19 13:32 Instructions: DI for Arrhythmias Activity Restrictions/Additional Instructions: I do suspect that you had an episode of atrial fibrillation last evening. This has resolved. Your in a normal rhythm now. I do recommend you contact your primary doctor to discuss the indications for a Holter monitor. Continue all of your medications as directed. Return to the emergency department for any new or worsening symptoms Prescriptions: No Action Lantus U-100 Insulin 100 UNIT/1 ML solution 22 unit SQ QAM Qty: 0 RF: 0 ezetimibe [Zetia] 10 MG tablet 10 mg PO DAILY Qty: 0 RF: 0 insulin lispro [Humalog U-100 Insulin] 100 UNIT/1 ML solution 10 - 15 u SQ QID PRN (Reason: sliding scale) Qty: 0 RF: 0 prednisone 5 mg tablet 10 mg PO DAILY RF: 0 allopurinol 100 mg tablet 100 mg PO DAILY RF: 0 levothyroxine 125 mcg tablet 125 mcg PO DAILY RF: 0 Xarelto 15 mg tablet 15 mg PO DAILY RF: 0 meclizine 12.5 mg Tablet 12.5 - 25 mg PO BEDTIME PRN (Reason: Dizziness) RF: 0 colchicine [Colcrys] 0.6 mg Tablet See Rx Instructions .ROUTE .COMPLEX MDD 3 tab PRN (Reason: Gout) RF: 0 Lantus Solostar U-100 Insulin 100 unit/mL (3 mL) insulin pen 20 unit SUBCUT QPM RF: 0 PreserVision AREDS-2 [id number] Capsule 1 cap PO BID RF: 0 atenolol 25 mg tablet 25 mg PO DAILY RF: 0 chlorthalidone 25 mg tablet 25 mg PO DAILY RF: 0 Referrals: Benigno Mahan MD [Primary Care Provider] -
[2019-01-28 12:43] VITALS: BP 196/58; PULSE 74; RESP 16; O2SAT 97
== END 2019-01-28 13:32 | disposition home or self-care (01) ==
PROVIDERS: Emergency Provider Emergency Medicine; PCP Family Medicine
DX: R00.2 Palpitations (principal)
CPT/HCPCS: 36415; 71045; 80053; 82550; 83690; 84484; 85025; 85610; 85730; 93005; 99283; 99285

== ENCOUNTER 2019-01-30 07:15 | Emergency (ER) | payer MEDICARE, OTHER, SELFPAY ==
[2019-01-30] VITALS (14 sets, daily range): BP systolic 124–175; BP diastolic 66–98; PULSE 92–155; RESP 14–23; TEMP 37.1; O2SAT 95–99; BMI 26.6
--- NOTE | 2019-01-30 07:30 | DI.RAD.S_ITS ---
PROCEDURE: XR CHEST 1V INDICATIONS: chest pain TECHNIQUE: One view of the chest was acquired. COMPARISON: [facility], CR, XR CHEST 1V, 01/28/2019, 08/08/2018. Lung bases on CT abdomen pelvis 09/05/2018. FINDINGS: Surgical changes and devices: None. Lungs and pleura: No consolidation. Increased interstitial markings. No pleural effusions or pneumothorax. Mediastinum: Mediastinal contours appear normal and unchanged. Heart size is normal. Bones and chest wall: No suspicious bony lesions. Overlying soft tissues appear unremarkable. IMPRESSION: No acute cardiopulmonary abnormality. Emphysematous change. Dictated by: Dominic Muller M.D. on 01/30/2019 at 8:45 Approved by: Dominic Muller M.D. on 01/30/2019 at 8:46
--- NOTE | 2019-01-30 07:31 | PC.NURSE ---
Patient denies any pain states last night before bed her heart felt like it was pounding out of her chest. States her apple watch was 155. Patient denies chest pain reports some SOB.
[2019-01-30 07:52] LABS: Add Manual Diff / Slide Review NO; Basophils Absolute Auto 100 /uL (0-100); Basophils Percent Auto 1.3 % (0-2); Eosinophils Absolute Auto 200 /uL (0-450); Eosinophils Percent Auto 1.9 % (2-4); Hematocrit 36.2 % (36-46); Hemoglobin 11.8 g/dL (12.0-16.0); Lymphocytes Absolute Auto 2700 /uL (1100-4500); Lymphocytes Percent Auto 28.3 % (25-40); Mean Corpuscular HGB Conc 32.7 % (30-36); Mean Corpuscular Hemoglobin 28.6 PG (26-34); Mean Corpuscular Volume 87.5 fL (80-100); Monocytes Absolute Auto 1000 /uL (0-900); Monocytes Percent Auto 10.4 % (3-14); Neutrophils Absolute Auto 5500 /uL (1500-7000); Neutrophils Percent Auto 58.1 % (50-75); Platelet Count 267 X10^3/uL (150-400); Red Blood Cell Count 4.14 X10^6/uL (4.0-5.2); Red Cell Distribution Width 15.6 % (11.6-14.8); White Blood Cell Count 9.4 X10^3/uL (4.5-11.0)
--- NOTE | 2019-01-30 07:55 | ED_ITS ---
HPI - Chest Pain General Chief Complaint: Chest Pain Stated Complaint: Very very rapid heart beat Time Seen by Provider: 01/30/19 07:44 Source: patient Mode of arrival: Ambulatory Limitations: no limitations History of Present Illness HPI narrative: Patient comes emergency department complaining palpitations about 2300 last night. She states that she has not had any chest, nausea, lightheadedness, or sweating. She states she feels slightly short of breath both in the bed and with exertion. She states she slept well last night and woke up this morning and found that she was still having palpitations, so deci ded to come in. She also states that she has a equipment monitor phototypesetting what she, and she found that her heart rate was in the 150s at home. Patient denies any recent illness. No recent dose changes in her medications. She states that she has not think she has been on her atenolol in ?15 years?. Patient is anticoagulated with Xarelto. She was just seen here on the for the same chief complaint although by the time she got here, she was back in normal sinus rhythm. Patient denies any other complaints at this time. Related Data Home Medications Medication Instructions Recorded Confirmed Lantus U-100 Insulin 22 unit SQ BID #0 10/16/12 01/30/19 ezetimibe [Zetia] 10 mg PO DAILY #0 10/16/12 01/30/19 insulin lispro [Humalog U-100 10 - 15 u SQ QID PRN #0 05/31/16 01/30/19 Insulin] atenolol 25 mg PO DAILY 01/25/18 01/30/19 chlorthalidone 25 mg PO DAILY 01/25/18 01/30/19 allopurinol 100 mg PO DAILY 08/08/18 01/30/19 levothyroxine 125 mcg PO DAILY 08/08/18 01/30/19 prednisone 10 mg PO DAILY 08/08/18 01/30/19 rivaroxaban [Xarelto] 15 mg PO DAILY 08/08/18 01/30/19 colchicine [Colcrys] See Rx Instructions .ROUTE 01/28/19 01/30/19 .COMPLEX PRN MDD 3 tab meclizine 12.5 - 25 mg PO BEDTIME PRN 01/28/19 01/30/19 vit C,Y-Ru-uaneg-lutein-zeaxan 1 cap PO BID 01/28/19 01/30/19 [PreserVision AREDS-2] Previous Rx's Medication Instructions Recorded diltiazem HCl [Cardizem CD] 240 mg PO DAILY #30 cap 01/30/19 Allergies Allergy/AdvReac Type Severity Reaction Status Date / Time ehsan Allergy Severe ANAPHYLAXIS Verified 08/08/18 16:11 Sulfa (Sulfonamide Allergy Severe unknown Verified 01/30/19 10:23 Antibiotics) meperidine AdvReac Severe I GO NUTS Verified 01/30/19 10:23 morphine AdvReac Severe DIZZY Verified 01/30/19 10:23 Review of Systems Constitutional Constitutional: Denies chills, Denies fatigue, Denies fever(s), Denies frequent falls, Denies lethargy and Denies weakness Eyes Eyes: Denies change in vision, Denies eye discharge, Denies irritation and Denies loss of vision ENT Ears, Nose, Mouth, and Throat: Denies change in voice, Denies dizziness, Denies neck pain, Denies sore throat and Denies throat swelling Cardiovascular Cardiovascular: Denies chest pain, Denies irregular heart rhythm, Denies lightheadedness, Reports palpitations, Reports dyspnea, Reports dyspnea on exertion and Denies orthopnea Respiratory Respiratory: Denies cough, Reports dyspnea, Reports dyspnea on exertion and Denies wheezing Gastrointestinal Gastrointestinal: Denies abdominal pain, Denies change in bowel habits, Denies diarrhea, Denies nausea and Denies vomiting Genitourinary Genitourinary: Denies hematuria, Denies flank pain, Denies urinary incontinence and Denies urinary urgency Musculoskeletal Musculoskeletal: Denies back pain, Denies muscle weakness, Denies neck pain, Denies numbness and Denies tingling Integumentary/Breasts Skin/Breast: Denies pruritus, Denies erythema, Denies rash and Denies wounds Neurologic Neurologic: Denies behavioral changes, Denies confusion, Denies dizziness, Denies frequent falls, Denies loss of vision, Denies numbness, Denies tingling and Denies weakness Psychiatric Psychiatric: Denies anxiety, Denies behavioral changes, Denies confusion, Denies depression, Denies homicidal ideation and Denies suicidal ideation Endocrine Endocrine: Denies fatigue, Denies flushing and Reports palpitations Hematologic/Lymphatic Hematologic/Lymphatic: Denies easy bruising Allergic/Immunologic Allergic/Immunologic: Denies urticaria, Denies throat swelling and Denies wheezing Patient History Medical History HTN (hypertension) (Inactive) HTN (hypertension) (Acute) Hypoglycemia (Inactive) Palpitations (Acute) Paroxysmal atrial fibrillation (Inactive) SOB (shortness of breath) (Inactive) Surgical History No pertinent past surgical history (Acute) Social History Smoking Status: Never smoker Social History Smoking Status: Never smoker alcohol intake frequency: 0-2 drinks per day Alcohol type: hard liquor Substance Use Type: does not use Exam Initial Vital Signs Initial Vital Signs: Vital Signs Temperature 98.8 F 01/30/19 07:26 Pulse Rate 155 H 01/30/19 07:26 Respiratory Rate 21 01/30/19 07:26 Blood Pressure 151/98 H 01/30/19 07:26 Pulse Oximetry 99 01/30/19 07:26 Const General: cooperative and well developed Nutritional Appearance: well nourished Orientation: alert, awake, oriented x3 and not confused Other: Patient is very well-appearing, and in no distress. [facility] Head: normocephalic and atraumatic Ears: external ears normal and TM's normal bilaterally Nose: external nose normal and No nasal discharge Face and sinus: sinuses nontender, face symmetric, no sinus tenderness and No dry mucous membranes Mouth: oral mucosae normal and moist mucous membranes Teeth and gingiva: dentition normal Throat: tonsils normal and uvula midline Eyes General: appearance normal, both eyes and all related structures Eyelids: eyelids normal Conjunctivae: conjunctivae normal Sclera: sclerae normal Pupils: PERRL EOM: EOM intact bilaterally Neck Neck: normal visual inspection, trachea midline, No lymphadenopathy, No midline deformity and No JVD Lymphatic: No lymphedema Chest Chest: normal inspection of the chest Resp Effort & Inspection: normal respiratory effort, able to speak in complete sentences, no respiratory distress and no use of accessory muscles Auscultation: clear to auscultation bilaterally, no rales, no rhonchi and no wheezes Cardio Rate: tachycardic Rhythm: abnormal rhythm (Rate variable 120-145 on the monitor.) irregularly irregular Heart Sounds: no click, no gallops, no murmurs and no rubs Pulses: normal peripheral pulses GI Inspection: non-distended Palpation: soft, no hepatosplenomegaly, No guarding, No pulsatile mass and No tender Auscultation: normal bowel sounds Back/Spine/Pelvis Back: No CVA tenderness Cervical Spine: cervical ROM normal and No pain with cervical ROM Thoracic/Lumbar Spine: thoracic and lumbar spine normal to inspection Skin General: no rashes or lesions noted, No jaundice and No petechiae Neuro General: alert, oriented x3, gait normal and no focal motor deficits Speech: speech normal Extrem General: full ROM, no clubbing, cyanosis or edema, no pedal edema and no calf tenderness Psych Appearance: well kempt Mental Status: mental status grossly normal Attitude: cooperative Thought Content: normal and suicidality Judgment: judgment good Course Course Course Narrative: Patient was worked up in the emergency department laboratory studies, including TSH. Her monitor reading showed atrial fibrillation with rapid ventricular response, as interpreted by ED MD, and 20 mg of Cardizem IV was initially ordered. However, after the 1st 10 mg were given, the patient's blood pressure did drop to 86 systolic, so no further Cardizem was given at that time. The patient's heart rate slowed only slightly to around the 130s, though her blood pressure did quickly rebound. the patient was given a dose of IV digoxin to try to treat the atrial fibrillation and RVR without dropping her pressure. This did not seem to have much effect. The patient was given a 2nd dose Cardizem 10 mg IV, and her heart rate actually came down into the low 100's. The patient reported feeling much better. The patient was given 1 last dose IV Cardizem 10 mg, and heart rate after this was variable from the 90s to 1 teens. The patient did not become hypotensive again after the initial episode of hypotension. Her labs were unremarkable. she was given a p.o. dose of C ardizem in the emergency department, and I discussed with the patient and her grandson that the patient should be on further therapy for her atrial fibrillation. She has been given a prescription for Cardizem ER, and she should take this in addition to her home meds. I have discussed with her and her grandson the importance of follow-up with her primary care physician as soon as possible, preferably within the next week, to be sure that this is a good long- term plan. We have discussed that her primary doctor may prefer a different regimen. We have discussed the usual indications for return. Orders Ordered: Discontinued Medications Digoxin (Lanoxin) 250 mcg IV NOW ONE Stop: 01/30/19 08:22 Last Admin: 01/30/19 08:34 Dose: 250 mcg Documented by: [email or web address] Diltiazem HCl (Cardizem) 20 mg IV NOW ONE Stop: 01/30/19 07:55 Last Admin: 01/30/19 08:02 Dose: 20 mg Documented by: ORAL.[email or web address] Diltiazem HCl (Cardizem) 10 mg IV NOW ONE Stop: 01/30/19 09:17 Last Admin: 01/30/19 09:27 Dose: 10 mg Documented by: [email or web address] Diltiazem HCl (Cardizem) 10 mg IV NOW ONE Stop: 01/30/19 09:36 Last Admin: 01/30/19 09:48 Dose: 10 mg Documented by: [email or web address] Diltiazem HCl (Cardizem Cd) 240 mg PO NOW ONE Stop: 01/30/19 10:58 Last Admin: 01/30/19 11:10 Dose: 240 mg Documented by: [email or web address] Sodium Chloride (Normal Saline 0.9%) 1,000 mls @ 1,000 mls/hr IV BOLUS ONE Stop: 01/30/19 09:38 Last Infusion: 01/30/19 09:44 Dose: 0 mls/hr Documented by: Admin: 01/30/19 08:20 Dose: 1,000 mls/hr Documented by: SPENCER Vital Signs Vital signs: Vital Signs - 8 hr 01/30/19 07:26 Temperature 98.8 F Pulse Rate 155 H Respiratory Rate 21 Blood Pressure 151/98 H Pulse Oximetry 99 MDM - Chest Pain Medical Records Data Attestation: I reviewed the patient's medical records. Lab Data Attestation: I reviewed the patient's lab results. Result diagrams: 01/30/19 07:40 01/30/19 07:40 Labs: Lab Results 01/30/19 01/30/19 01/30/19 Range/Units 07:40 07:40 07:40 WBC 9.4 (4.5-11.0) X10^3/uL RBC 4.14 (4.0-5.2) X10^6/uL Hgb 11.8 L (12.0-16.0) g/dL Hct 36.2 (36-46) % MCV 87.5 (80-100) fL MCH 28.6 (26-34) PG MCHC 32.7 (30-36) % RDW 15.6 H (11.6-14.8) % Plt Count 267 (150-400) X10^3/uL Neut % (Auto) 58.1 D (50-75) % Lymph % (Auto) 28.3 (25-40) % [place] % (Auto) 10.4 (3-14) % Eos % (Auto) 1.9 L (2-4) % Baso % (Auto) 1.3 (0-2) % Neut # (Auto) 5500 (4141-0819) /uL Lymph # (Auto) 2700 (2996-5284) /uL [place] # (Auto) 1000 H (0-900) /uL Eos # (Auto) 200 (0-450) /uL Baso # (Auto) 100 (0-100) /uL PT 15.4 H D (10.1-12.7) SECONDS INR 1.3 (0.9-1.3) APTT 37 H D (26.4-36.2) SECONDS Sodium 140 (137-145) mmol/L Potassium 3.2 L (3.4-5.1) mmol/L Chloride 104 (98-107) mmol/L Carbon Dioxide 26 (22-32) mmol/L BUN 40 H (7-17) mg/dL Creatinine 1.70 H (0.52-1.04) mg/dL Estimated GFR 28.6 L (>60) mL/min BUN/Creatinine Ratio 23.5 H (6-22) Glucose 169 H (80-110) mg/dL Calcium 9.4 (8.4-10.2) mg/dL Total Bilirubin 0.6 (0.2-1.3) mg/dL AST 26 (14-36) IU/L ALT 12 (9-52) IU/L Alkaline Phosphatase 80 (38-126) U/L Total Creatine Kinase 34 (30-135) U/L CK-MB (CK-2) TNP CK-MB (CK-2) Rel Index TNP Troponin I 0.056 H (0.01-0.034) ng/mL Total Protein 7.2 (6.3-8.2) g/dL Albumin 3.9 (3.5-5.0) g/dL Globulin 3.3 (1.7-4.1) g/dL Albumin/Globulin Ratio 1.2 (1.0-2.8) Lipase 183 (23-300) U/L TSH (0.47-4.68) uIU/mL 01/30/19 Range/Units 07:40 WBC (4.5-11.0) X10^3/uL RBC (4.0-5.2) X10^6/uL Hgb (12.0-16.0) g/dL Hct (36-46) % MCV (80-100) fL MCH (26-34) PG MCHC (30-36) % RDW (11.6-14.8) % Plt Count (150-400) X10^3/uL Neut % (Auto) (50-75) % Lymph % (Auto) (25-40) % [place] % (Auto) (3-14) % Eos % (Auto) (2-4) % Baso % (Auto) (0-2) % Neut # (Auto) (4711-7021) /uL Lymph # (Auto) (5295-8223) /uL [place] # (Auto) (0-900) /uL Eos # (Auto) (0-450) /uL Baso # (Auto) (0-100) /uL PT (10.1-12.7) SECONDS INR (0.9-1.3) APTT (26.4-36.2) SECONDS Sodium (137-145) mmol/L Potassium (3.4-5.1) mmol/L Chloride (98-107) mmol/L Carbon Dioxide (22-32) mmol/L BUN (7-17) mg/dL Creatinine (0.52-1.04) mg/dL Estimated GFR (>60) mL/min BUN/Creatinine Ratio (6-22) Glucose (80-110) mg/dL Calcium (8.4-10.2) mg/dL Total Bilirubin (0.2-1.3) mg/dL AST (14-36) IU/L ALT (9-52) IU/L Alkaline Phosphatase (38-126) U/L Total Creatine Kinase (30-135) U/L CK-MB (CK-2) CK-MB (CK-2) Rel Index Troponin I (0.01-0.034) ng/mL Total Protein (6.3-8.2) g/dL Albumin (3.5-5.0) g/dL Globulin (1.7-4.1) g/dL Albumin/Globulin Ratio (1.0-2.8) Lipase (23-300) U/L TSH 0.03 L (0.47-4.68) uIU/mL ECG Data Attestation: I personally reviewed and interpreted this ECG as follows: (See below) Interpretation: Twelve lead EKG performed January 30, 2019, as follows: Irregular ventricular rhythm with a rate of 143 beats per minute VA interval detected P waves undetectable QRS duration 86 millisecond QTC interval 358 millisecond T-wave inversion inferior anterior, lateral leads Interpretation: Atrial fibrillation with rapid ventricular response; ST devia tion and moderate T-wave abnormality; no STEMI; abnormal EKG as interpreted by ED MD Discharge Plan Departure Patient Disposition: Home Clinical Impression: Atrial fibrillation with rapid ventricular response Discharge Date/Time: 01/30/19 11:37 Instructions: DI for Atrial Fibrillation Activity Restrictions/Additional Instructions: Your heart rate has improved in the emergency department with medication. Your still in atrial fibrillation, which may spontaneously resolve at home. You been started on medication to help control your heart rate. It is important that you take this every day to help keep your heart rate from going too fast. You will need to follow up with your primary care physician and Cardiology to determine whether further intervention is needed for your atrial fibrillation. Your prescription has been electronically transmitted to safely in [facility]. Please pick the medication up today. Prescriptions: New diltiazem HCl [Cardizem CD] 240 mg capsule,extended release 24hr 240 mg PO DAILY Qty: 30 RF: 0 No Action Lantus U-100 Insulin 100 UNIT/1 ML solution 22 unit SQ BID Qty: 0 RF: 0 ezetimibe [Zetia] 10 MG tablet 10 mg PO DAILY Qty: 0 RF: 0 insulin lispro [Humalog U-100 Insulin] 100 UNIT/1 ML solution 10 - 15 u SQ QID PRN (Reason: sliding scale) Qty: 0 RF: 0 prednisone 5 mg tablet 10 mg PO DAILY RF: 0 allopurinol 100 mg tablet 100 mg PO DAILY RF: 0 levothyroxine 125 mcg tablet 125 mcg PO DAILY RF: 0 Xarelto 15 mg tablet 15 mg PO DAILY RF: 0 meclizine 12.5 mg Tablet 12.5 - 25 mg PO BEDTIME PRN (Reason: Dizziness) RF: 0 colchicine [Colcrys] 0.6 mg Tablet See Rx Instructions .ROUTE .COMPLEX MDD 3 tab PRN (Reason: Gout) RF: 0 PreserVision AREDS-2 [id number] Capsule 1 cap PO BID RF: 0 atenolol 25 mg tablet 25 mg PO DAILY RF: 0 chlorthalidone 25 mg tablet 25 mg PO DAILY RF: 0 Referrals: Benigno Mahan MD [Primary Care Provider] -
[2019-01-30 07:56] LABS: INR 1.3 (0.9-1.3); Prothrombin Time 15.4 SECONDS (10.1-12.7)
[2019-01-30 07:59] LABS: PTT Partial Thromboplastin Tim 37 SECONDS (26.4-36.2)
[2019-01-30 08:01] LABS: Alanine Aminotransferase 12 IU/L (9-52); Albumin 3.9 g/dL (3.5-5.0); Albumin Globulin Ratio 1.2 (1.0-2.8); Alkaline Phosphatase 80 U/L (38-126); Aspartate Aminotransferase 26 IU/L (14-36); BUN Creatinine Ratio 23.5 (6-22); Bilirubin Total 0.6 mg/dL (0.2-1.3); Blood Urea Nitrogen 40 mg/dL (7-17); Calcium 9.4 mg/dL (8.4-10.2); Carbon Dioxide 26 mmol/L (22-32); Chloride 104 mmol/L (98-107); Creatine Kinase 34 U/L (30-135); Estimated Glomerular Filt Rate 28.6 mL/min (>60); Globulin 3.3 g/dL (1.7-4.1); Glucose 169 mg/dL (80-110); HEMOLYSIS < 15 (0-50); Lipase 183 U/L (23-300); Potassium 3.2 mmol/L (3.4-5.1); Sodium 140 mmol/L (137-145); Total Protein 7.2 g/dL (6.3-8.2)
[2019-01-30] MEDS: dilTIAZem 5 MG/ML SDV 20 MG IV (08:02)
[2019-01-30 08:13] LABS: Troponin I 0.056 ng/mL (0.01-0.034)
[2019-01-30] MEDS: SODIUM CHLORIDE 0.9% 1,000 ML 1000 ML IV (08:20)
[2019-01-30] MEDS: DIGOXIN 500 MCG/2 ML AMPUL 250 MCG IV (08:34)
--- NOTE | 2019-01-30 08:37 | PC.NURSE ---
Patient only received 10mg IV of 20mg order secondary to blood pressure decrease during administration
[2019-01-30 08:42] LABS: Thyroid Stimulating Hormone 0.03 uIU/mL (0.47-4.68)
[2019-01-30] MEDS: dilTIAZem 5 MG/ML SDV 10 MG IV ×2 (09:27→09:48)
--- NOTE | 2019-01-30 10:48 | PC.NURSE ---
Patient taking his own morning meds that he brought in. Provider aware.
[2019-01-30] MEDS: dilTIAZem CD 240 MG CAP PO (11:10)
== END 2019-01-30 11:37 | disposition home or self-care (01) ==
PROVIDERS: Emergency Provider Emergency Medicine; PCP Family Medicine
DX: I48.20 Chronic atrial fibrillation, unspecified (principal)
CPT/HCPCS: 36415; 71045; 80053; 82550; 83690; 84443; 84484; 85025; 85610; 85730; 93005; 93041; 96361; 96374; 96375; 96376; 99285; J1160

== ENCOUNTER → 2019-02-12 13:48 | Outpatient (CLI) | payer MEDICARE, OTHER, SELFPAY ==
--- NOTE | 2019-02-12 | DI.ECHO.S_ITS ---
[facility] +---------+ : : [address] [place] : : : : [id number] : : : : Phone: [phone]---------+ Echocardiogram Report + + :Name: KELLY NAYLOR Study Date: 02/12/2019 Height: 67 in : :[facility] Exam Location: [place] Weight: 175 lb : : Gender: Female BSA: 1.9 m2 : :: 1935 Age: 83 yrs BP: 138/60 mmHg: :Reason For Study: Atrial fibrillation : :Ordering Physician: Benigno : :Kalli Performed By: Mercedez Page : + + Interpretation Summary The left ventricle is normal in size. The ejection fraction is estimated to be 60-65%. There has been no significant change in LVEF since the previous study. The right ventricle is normal in size and function. There is mild to moderate mitral regurgitation. Compared to the prior echo study, there has been no change in the severity of mitral regurgitation. The aortic valve is mildly calcified. There is mildly reduced leaflet mobility. The calculated aortic valve area is 1.5 cm2. The peak aortic velocity is 2.3 m/sec. There is mild aortic stenosis. There is mild aortic regurgitation. There is mild tricuspid regurgitation. The right ventricular systolic pressure is estimated to be at least 30 mmHg based on an estimated right atrial pressure of 3 mm Hg. Procedure: A two-dimensional transthoracic echocardiogram with color flow and Doppler was performed. The study quality was technically adequate. Comparison is made with the echocardiogram of 07/29/2013. The heart rate ranged between 51-69 bpm during the study. The patient was in normal sinus rhythm during the exam. Left Ventricle: The left ventricle is normal in size. Left ventricular wall thickness is mildly increased. There is no thrombus. The ejection fraction is estimated to be 60-65%. There has been no significant change since the previous study. There are no obvious focal wall motion abnormalities noted but poor endocardial definition reduces the sensitivity for the detection of such. MV E/A: 0.83 Med Peak E' Frank: 4.3 cm/sec E/E' med: 22.1. Right Ventricle: The right ventricle is normal in size and function. Atria: The left atrium is severely dilated. The left atrium has significantly increased in size since the prior echo exam. Right atrial size is normal. There is no Doppler evidence for an interatrial shunt. Mitral Valve: The mitral valve leaflets appear mildly thickened, but open well. There is mild mitral annular calcification. The mitral valve leaflets are slightly calcified. There is mild to moderate mitral regurgitation. Compared to the prior echo study, there has been no change in the severity of mitral regurgitation. Aortic Valve: The aortic valve is trileaflet. The aortic valve is mildly calcified. There is mildly reduced leaflet mobility. The peak aortic velocity is 2.3 m/sec. The peak aortic velocity on the previous exam was 1.3 m/sec. The calculated aortic valve area is 1.5 cm2. The aortic valve mean gradient is 12.7 mmHg. There is mild aortic stenosis. There is mild aortic regurgitation. Tricuspid Valve: The tricuspid valve is normal in structure and function. There is mild tricuspid regurgitation. The right ventricular systolic pressure is estimated to be at least 30 mmHg based on an estimated right atrial pressure of 3 mm Hg. Pulmonic Valve: The pulmonic valve is not well visualized. There is a trace or physiologic amount of pulmonic regurgitation. Great Vessels: The aortic root is normal size. There is aortic root sclerosis/calcification. The ascending aorta is at the upper limits of normal in size. The pulmonary is not well visualized. The IVC is of normal diameter and collapses greater than 50% with a sniff. This suggests a low right atrial pressure of 3 mm Hg. Pericardium/ Pleura There is no pericardial effusion. There is an anterior echo-free space consistent with a fat pad. There is no pleural effusion. MMode/2D Measurements & Calculations LVIDd: 4.4 cm LVOT diam: 2.0 cm LVIDs: 2.7 cm Ao root diam: 3.3 cm FS: 37.6 % asc Aorta Diam: 3.4 cm EPSS: 0.80 cm IVSd: 1.0 cm LVPWd: 0.97 cm LV ray. diameter/BSA (cm/m^2): 2.3 LV sys. diameter/BSA (cm/m^2): 1.4 LA A2 area: 27.9 cm2 RA long axis: 4.7 cm LA A4 area: 28.7 cm2 RA area: 16.2 cm2 LA length (vol): 6.2 cm RA vol: 47.4 ml LA vol: 109.6 ml RA : 24.8 ml/m2 LA vol index: 57.4 ml/m2 IVC diam: 2.0 cm RVD1 (basal): 3.6 cm TAPSE: 2.5 cm Doppler Measurements & Calculations Ao V2 max: 231.5 cm/sec LVOT Max Frank: 99.4 cm/sec Ao V2 mean: 172.1 cm/sec LV V1 max P.0 mmHg Ao max P.4 mmHg LV V1 VTI: 27.5 cm Ao mean P.7 mmHg NAS(I,D): 1.5 cm2 Ao V2 VTI: 55.4 cm NAS(V,D): 1.3 cm2 sev ratio: 0.50 NAS indexed to BSA (cm^2/m^2): 0.78 MV E max frank: 95.8 cm/sec TR max frank: 257.7 cm/sec MV A max frank: 114.8 cm/sec TR max P.6 mmHg MV E/A: 0.83 PA V2 max: 83.7 cm/sec Med Peak E' Frank: 4.3 cm/sec PA V2 mean: 56.2 cm/sec E/E' med: 22.1 PA mean P.4 mmHg Lat Peak E' Frank: 6.5 cm/sec PA Accel Time: 0.12 sec E/E' lat: 14.7 E/e' average: 18.4 MV dec time: 0.20 sec MV P1/2t: 60.5 msec MV P1/2t max frank: 95.8 cm/sec SV(LVOT): 82.6 ml MVA(P1/2t): 3.6 cm2 Reading Physician:12:42 PM
== END ==
PROVIDERS: PCP Family Medicine; Visit Provider Family Medicine
DX: I08.3 Combined rheumatic disorders of mitral, aortic and tricuspid valves (principal); I48.91 Unspecified atrial fibrillation
CPT/HCPCS: 93306

== ENCOUNTER → 2019-02-13 09:04 | Outpatient (CLI) | payer MEDICARE, OTHER, SELFPAY ==
--- NOTE | 2019-02-26 08:07 | P.HOLT.S_ITS ---
[facility] Report Referral & Results Date Patient Seen: 02/13/19 Requesting provider: Benigno Mahan Indication: Palpitations Duration of monitoring (days): 8 Diary information: There were 2 patient triggered events and 1 patient diary entry The triggered events were associated with sinus rhythm, PACs, and a brief run of SVT/atrial tachycardia The diary entry was associated with sinus rhythm only Data: Minimum heart rate identified was 44 beats per minute at 09:26 on 02/13/2019 Maximum sinus heart rate identified was 94 beats per minute at 17:32 on 01/17/2019 Maximum overall heart rate was 162 beats per minute at 15:25 on 02/14/2019 during a 4 beat run of SVT/atrial tachycardia Less than 1% of identified beats or either ventricular supraventricular ectopic in origin Patient had 23 runs of a supraventricular tachycardia or atrial tachycardia the fastest being the 4 beat run listed above and the longest lasting 12 beats at a rate of 97 beats per minute which suggest more of an atrial tachycardia There was a 3.9 second run of ventricular bigeminy present as well Impression: Limited supraventricular ectopy as above Much more limited ventricular ectopy as above No serious dysrhythmias identified on this study No clear correlation with patient's symptoms and any particular dysrhythmia
== END ==
PROVIDERS: PCP Family Medicine; Visit Provider Family Medicine
DX: R00.2 Palpitations (principal); I48.91 Unspecified atrial fibrillation
CPT/HCPCS: 0296T; 0298T

== ENCOUNTER 2019-05-28 10:54 | Observation (INO) | payer MEDICARE, OTHER, SELFPAY ==
[2019-05-28] VITALS (18 sets, daily range): BP systolic 131–250; BP diastolic 58–102; PULSE 49–93; RESP 13–35; TEMP 36.4–37.6; O2SAT 91–100; BMI 26.6; BMI 26.7
--- NOTE | 2019-05-28 11:17 | DI.RAD.S_ITS ---
PROCEDURE: XR CHEST 1V INDICATIONS: chest pain TECHNIQUE: One view of the chest was acquired. COMPARISON: [facility], , CHEST 2 VIEW, 08/08/2017, 12:32. [facility], , XR CHEST 1V, 01/28/2019, 11:41. [facility], , XR CHEST 2V, 01/25/2018, 9:59. [facility], , XR CHEST 1V, 01/30/2019, 7:50. FINDINGS: Surgical changes and devices: None. Lungs and pleura: Lungs are clear. No pleural effusions or pneumothorax. Mediastinum: Mediastinal contours appear normal. Heart size is normal. There is aortic atherosclerosis. Bones and chest wall: No suspicious bony lesions. Degenerative changes of the spine and shoulders are not well characterized, but appear similar to the prior studies. Overlying soft tissues appear unremarkable. IMPRESSION: Stable chest. No acute cardiopulmonary process is evident. Dictated by: Gómez Nunez M.D. on 05/28/2019 at 10:30 Approved by: Gómez Nunez M.D. on 05/28/2019 at 10:56
[2019-05-28 11:40] LABS: Add Manual Diff / Slide Review NO; Basophils Absolute Auto 100 /uL (0-100); Basophils Percent Auto 1.2 % (0-2); Eosinophils Absolute Auto 200 /uL (0-450); Eosinophils Percent Auto 1.9 % (2-4); Hematocrit 35.4 % (36-46); Hemoglobin 11.6 g/dL (12.0-16.0); Lymphocytes Absolute Auto 1700 /uL (1100-4500); Lymphocytes Percent Auto 19.4 % (25-40); Mean Corpuscular HGB Conc 32.8 % (30-36); Mean Corpuscular Hemoglobin 28.8 PG (26-34); Mean Corpuscular Volume 88.1 fL (80-100); Monocytes Absolute Auto 1000 /uL (0-900); Neutrophils Absolute Auto 5700 /uL (1500-7000); Neutrophils Percent Auto 65.5 % (50-75); Platelet Count 219 X10^3/uL (150-400); Red Blood Cell Count 4.02 X10^6/uL (4.0-5.2); Red Cell Distribution Width 15.4 % (11.6-14.8); White Blood Cell Count 8.6 X10^3/uL (4.5-11.0)
[2019-05-28 11:46] LABS: INR 1.3 (0.9-1.3); Prothrombin Time 14.7 SECONDS (10.1-12.7)
[2019-05-28] MEDS: NITROGLYCERIN OINT 1 INCH/GM OINT...G. TOP ×3 (11:46→21:33)
[2019-05-28 11:49] LABS: PTT Partial Thromboplastin Tim 32 SECONDS (26.4-36.2)
[2019-05-28 11:50] LABS: Alanine Aminotransferase 18 IU/L (<35); Albumin 3.7 g/dL (3.5-5.0); Albumin Globulin Ratio 1.2 (1.0-2.8); Alkaline Phosphatase 79 U/L (38-126); Aspartate Aminotransferase 27 IU/L (14-36); BUN Creatinine Ratio 19.4 (6-22); Bilirubin Total 0.5 mg/dL (0.2-1.3); Blood Urea Nitrogen 33 mg/dL (7-17); Calcium 9.1 mg/dL (8.4-10.2); Carbon Dioxide 28 mmol/L (22-32); Chloride 103 mmol/L (98-107); Creatine Kinase 28 U/L (30-135); Estimated Glomerular Filt Rate 28.6 mL/min (>60); Globulin 3.2 g/dL (1.7-4.1); Glucose 254 mg/dL (80-110); HEMOLYSIS < 15 (0-50); Lipase 118 U/L (23-300); Potassium 3.7 mmol/L (3.4-5.1); Sodium 139 mmol/L (137-145); Total Protein 6.9 g/dL (6.3-8.2)
[2019-05-28 12:01] LABS: Troponin I 0.018 ng/mL (0.01-0.034)
[2019-05-28 12:12] LABS: NT-proBNP (BNP-Adult 18+) 1350 pg/mL (<450)
--- NOTE | 2019-05-28 12:42 | ED.CHESTPAIN ---
HPI - Chest Pain <PIERO Gutierrez - Last Filed: 05/28/19 16:15> General Chief Complaint: Chest Pain Stated Complaint: CHEST PAINS Time Seen by Provider: 05/28/19 11:20 Source: patient Mode of arrival: Ambulatory Limitations: no limitations History of Present Illness HPI narrative: This is a 83-year-old female, nonsmoker, who presents to ED with resolved midsternal chest tightness which started at 9:30 a.m. for 20 minutes while she was doing house working. Patient reports pain resolved after she sat down and rest. She had associated symptoms such as some dyspnea and lightheadedness but denies nausea, vomiting, sweaty feeling. Patient has history of AFib and takes atenolol and diltiazem and she is currently on Xarelto. She also has history of diabetes and takes insulin Lantus and Humalog. Patient also noticed increased left leg swelling and has been wearing compression stocking last few days. Also, there is a small wound on left anterior lechuga which is tender to palpate but denies fever, chills, drainage from the site. Patient denies having a oil and gas specialist at this time. Patient states she has taken all her blood pressure medications this morning around at 8:30 a.m. Related Data Home Medications Medication Instructions Recorded Confirmed Lantus U-100 Insulin 20 unit SQ QAM #0 10/16/12 05/28/19 ezetimibe [Zetia] 10 mg PO DAILY #0 10/16/12 05/28/19 insulin lispro [Humalog U-100 10 - 15 u SQ QID PRN #0 05/31/16 05/28/19 Insulin] atenolol 25 mg PO BID 01/25/18 05/28/19 chlorthalidone 25 mg PO DAILY 01/25/18 05/28/19 allopurinol 100 mg PO QPM 08/08/18 05/28/19 levothyroxine 125 mcg PO DAILY 08/08/18 05/28/19 prednisone 5 mg PO DAILY 08/08/18 05/28/19 rivaroxaban [Xarelto] 15 mg PO DAILY 08/08/18 05/28/19 colchicine [Colcrys] See Rx Instructions .ROUTE 01/28/19 05/28/19 .COMPLEX PRN MDD 3 tab meclizine 12.5 - 25 mg PO BEDTIME PRN 01/28/19 05/28/19 acetaminophen 325 mg PO PRN PRN 05/28/19 05/28/19 flash glucose sensor [FreeStyle 05/28/19 05/28/19 Thomas 14 Day Sensor] insulin glargine [Lantus Solostar 16 unit SUBCUT QPM 05/28/19 05/28/19 U-100 Insulin] prednisone 4 mg PO DAILY 05/28/19 05/28/19 Allergies Allergy/AdvReac Type Severity Reaction Status Date / Time kiwi Allergy Severe ANAPHYLAXIS Verified 05/28/19 11:19 Sulfa (Sulfonamide Allergy Severe unknown Verified 01/30/19 10:23 Antibiotics) meperidine AdvReac Severe I GO NUTS Verified 01/30/19 10:23 morphine AdvReac Severe DIZZY Verified 01/30/19 10:23 Review of Systems <PIERO Gutierrez - Last Filed: 05/28/19 16:15> Review of Systems Narrative: General: Denies fever, chills, fatigue, malaise, sweats. HEENT: Denies sinus pain, ear pain, sore throat, difficulty swallowing, dizziness. Respiratory: Denies (+) dyspnea, cough, wheezing, hemoptysis, sputum. Cardiovascular: See HPI Gastrointestinal: Denies nausea, vomiting, abdominal pain, diarrhea, constipation, melena. : Denies dysuria, frequency, incontinence, hematuria, urinary retention. Musculoskeletal: Denies weakness, joint pain or bony pain. Skin: Denies rash, skin lesions, or other. Neurologic: Denies weakness, headache, numbness, change in speech, confusion, (+) lightheadedness, seizures, incoordination. Psychiatric: No concerning psychosocial issues. 12-point review of systems is negative except for those stated above. Patient History <PIERO Gutierrez - Last Filed: 05/28/19 16:15> Medical History HTN (hypertension) (Inactive) HTN (hypertension) (Acute) Hypoglycemia (Inactive) Palpitations (Acute) Paroxysmal atrial fibrillation (Inactive) SOB (shortness of breath) (Inactive) Surgical History No pertinent past surgical history (Acute) Social History household members: none Smoking Status: Never smoker alcohol intake: current Smoking Status: Never smoker alcohol intake frequency: 0-2 drinks per day Alcohol type: hard liquor Substance Use Type: does not use Exam <PIERO Gutierrez - Last Filed: 05/28/19 16:15> Narrative Exam Narrative: GEN: Alert, oriented x 3, well appearing and nourished, and in no acute distress. Head: Normal cephalic, atraumatic. No scalp or temporal tenderness, palpable mass or rash. EYES: Pupils are equal, round, and reactive to light and accommodation. Extraocular muscles are intact bilaterally. There is no subconjunctival hemorrhage, exudate and sclera non-icteric. ENT: Bilateral auditory canals and tympanic membranes clear. Hearing grossly intact. Nose without bleeding, purulent discharge or deviation. Facial sinuses nontender to palpate. Mucous membrane moist, no mucosal lesion. Throat without erythema, tonsillar hypertrophy or exudate. Uvula in midline, airway patent. Neck: Trachea in midline. No JVD, non-tender without lymphadenopathy. No masses or thyroid megaly. Supple, non-tender and no meningeal signs. CARDIAC: Normal Alf rhythm with murmurs but no gallops, or rubs. No chest wall tenderness. No peripheral edema, cyanosis or pallor. Capillary refill is less than 2 seconds. RESPIRATORY: Lungs are clear to auscultate bilaterally. No cough, wheezes, rales, or rhonchi. No stridor, respiratory distress, increase work of breathing, or accessary muscle used. ABD: Abdomen soft, nontender and non-distended. No guarding or rebound tenderness to palpate. Bowel sounds are normal in all 4 quadrants. There is no palpable masses or organomegaly. EXT: Full painless ROM of all extremities with no loss of sensation, strength, effusion or edema. SKIN: A round skin lesion, approx 2cm, with mild erythema around the lesion on Left anterior lechuga, TTP, no drainage noted. Warm, dry, normal color for patient. No erythema, lesions or rash over visible areas. BACK: Nontender without deformity or crepitance. No flank tenderness. NEUROLOGICAL: Alert and oriented to place, time and person. Sensation and motor function intact bilaterally. No facial droops, dysphasia. PSYCHIATRIC: Good judgement and reason, without hallucinations, abnormal affect or abnormal behaviors during the examination. Initial Vital Signs Initial Vital Signs: Vital Signs Pulse Rate 62 05/28/19 11:20 Respiratory Rate 20 05/28/19 11:20 Blood Pressure 220/88 H 05/28/19 11:20 Pulse Oximetry 100 05/28/19 11:20 <Bebo Rock DO - Last Filed: 05/28/19 17:36> Initial Vital Signs Initial Vital Signs: Vital Signs Pulse Rate 62 05/28/19 11:20 Respiratory Rate 20 05/28/19 11:20 Blood Pressure 220/88 H 05/28/19 11:20 Pulse Oximetry 100 05/28/19 11:20 Scores <Adrian HornePIERO Samayoa - Last Filed: 05/28/19 16:15> GCS Smith coma scale eye opening: Spontaneous Smith coma scale verbal response: Orientated Smith coma scale motor response: Obey commands Smith coma scale total score: 15 HEART Score Heart Score history: Slightly Suspicious Heart Score EKG: Normal Heart Score Age: > or = 65 years old Heart Score risk factors: > 3 risk factors or hx of atherosclerotic disease Heart Score troponin: < or = to normal limit Heart Score Total: 4 Course <Adrian HorneJESUS SamayoaP - Last Filed: 05/28/19 16:15> Orders Ordered: ED Orders 05/28/19 11:17 XR chest 1V Stat EKG-12 Lead Stat 05/28/19 11:30 Complete Blood Count AUTO DIFF Stat Comprehensive Metabolic Panel Stat Lipase Stat NT-proBNP (BNP-Adult 18+) Stat Partial Thromboplastin Time Stat Prothrombin Time INR Stat Troponin & CK Cardiac Panel Stat 05/28/19 15:37 Troponin & CK Cardiac Panel Routine Acetaminophen (Tylenol) 325 mg PO PRN PRN PRN Reason: pain Allopurinol (Zyloprim) 100 mg PO QPM [facility] Aspirin (Aspirin Ec) 81 mg PO DAILY [facility] Atenolol (Tenormin) 25 mg PO BID [facility] Chlorthalidone (Hygroton) 25 mg PO DAILY [facility] Colchicine (Colcrys) 0.6 mg PO PRN PRN PRN Reason: Gout Ezetimibe (Zetia) 10 mg PO DAILY [facility] Hydralazine HCl (Apresoline) 10 mg IV Q2H PRN PRN Reason: HYPERTENSION Insulin Aspart (Novolog Flexpen) 0 unit SUBCUT ACHS MARIAA; Protocol Insulin Glargine (Lantus (Vial)) 20 unit SUBCUT DAILY [facility] Insulin Glargine (Lantus Solostar (Pen)) 16 unit SUBCUT BEDTIME [facility] Levothyroxine Sodium (Synthroid) 125 mcg PO 0600 [facility] Naloxone HCl (Narcan) 0.2 mg IV Q2MIN PRN PRN Reason: Opiate Reversal Nitroglycerin (Nitrostat) 0.4 mg SL [id number] PRN PRN Reason: Chest Pain Prednisone (Deltasone) 5 mg PO DAILY [facility] Prednisone (Deltasone) 4 mg PO DAILY [facility] Rivaroxaban (Xarelto) 15 mg PO DAILY [facility] Discontinued Medications Sodium Chloride (Normal Saline 0.9%) 500 mls @ 1,000 mls/hr IV BOLUS ONE Stop: 05/28/19 11:49 Last Admin: 05/28/19 14:32 Dose: Not Given Documented by: AL Lisinopril (Zestril) 20 mg PO NOW ONE Stop: 05/28/19 13:37 Last Admin: 05/28/19 14:07 Dose: 20 mg Documented by: ESTEFANY Nitroglycerin (Nitro-Bid) 1 inch TOP NOW ONE Stop: 05/28/19 11:41 Last Admin: 05/28/19 11:46 Dose: 1 inch Documented by: ESTEFANY Vital Signs Vital signs: Vital Signs - 8 hr 05/28/19 11:20 05/28/19 11:22 05/28/19 12:06 Pulse Rate 62 49 L Respiratory Rate 20 13 Blood Pressure 220/88 H Blood Pressure [Left Arm] 220/88 H Blood Pressure [Right Arm] 236/96 H 205/85 H Pulse Oximetry 100 <Bebo Rock DO - Last Filed: 05/28/19 17:36> Orders Ordered: ED Orders 05/28/19 11:17 XR chest 1V Stat EKG-12 Lead Stat 05/28/19 11:30 Complete Blood Count AUTO DIFF Stat Comprehensive Metabolic Panel Stat Lipase Stat NT-proBNP (BNP-Adult 18+) Stat Partial Thromboplastin Time Stat Prothrombin Time INR Stat Troponin & CK Cardiac Panel Stat 05/28/19 15:37 Troponin & CK Cardiac Panel Routine Acetaminophen (Tylenol) 325 mg PO PRN PRN PRN Reason: pain Allopurinol (Zyloprim) 100 mg PO QPM [facility] Aspirin (Aspirin Ec) 81 mg PO DAILY [facility] Atenolol (Tenormin) 25 mg PO BID [facility] Chlorthalidone (Hygroton) 25 mg PO DAILY [facility] Colchicine (Colcrys) 0.6 mg PO PRN PRN PRN Reason: Gout Ezetimibe (Zetia) 10 mg PO DAILY [facility] Hydralazine HCl (Apresoline) 10 mg IV Q2H PRN PRN Reason: HYPERTENSION Insulin Aspart (Novolog Flexpen) 0 unit SUBCUT ACHS MARIAA; Protocol Insulin Glargine (Lantus (Vial)) 20 unit SUBCUT DAILY [facility] Insulin Glargine (Lantus Solostar (Pen)) 16 unit SUBCUT BEDTIME [facility] Levothyroxine Sodium (Synthroid) 125 mcg PO 0600 [facility] Naloxone HCl (Narcan) 0.2 mg IV Q2MIN PRN PRN Reason: Opiate Reversal Nitroglycerin (Nitrostat) 0.4 mg SL [id number] PRN PRN Reason: Chest Pain Prednisone (Deltasone) 5 mg PO DAILY [facility] Prednisone (Deltasone) 4 mg PO DAILY [facility] Rivaroxaban (Xarelto) 15 mg PO DAILY [facility] Discontinued Medications Sodium Chloride (Normal Saline 0.9%) 500 mls @ 1,000 mls/hr IV BOLUS ONE Stop: 05/28/19 11:49 Last Admin: 05/28/19 14:32 Dose: Not Given Documented by: AL Lisinopril (Zestril) 20 mg PO NOW ONE Stop: 05/28/19 13:37 Last Admin: 05/28/19 14:07 Dose: 20 mg Documented by: ESTEFANY Nitroglycerin (Nitro-Bid) 1 inch TOP NOW ONE Stop: 05/28/19 11:41 Last Admin: 05/28/19 11:46 Dose: 1 inch Documented by: ESTEFANY Vital Signs Vital signs: Vital Signs - 8 hr 05/28/19 11:20 05/28/19 11:22 05/28/19 12:06 Pulse Rate 62 49 L Respiratory Rate 20 13 Blood Pressure 220/88 H Blood Pressure [Left Arm] 220/88 H Blood Pressure [Right Arm] 236/96 H 205/85 H Pulse Oximetry 100 MDM - Chest Pain <JESUS GutierrezP - Last Filed: 05/28/19 16:15> Differential Diagnosis Differential diagnosis: Likely stable angina and other (Heart failure, cholecystitis, HTN emergency) Medical Records Data Attestation: I reviewed the patient's medical records. Lab Data Attestation: I reviewed the patient's lab results. Result diagrams: 05/28/19 11:30 05/28/19 11:30 Labs: Lab Results 05/28/19 05/28/19 05/28/19 Range/Units 11:30 11:30 11:30 WBC 8.6 (4.5-11.0) X10^3/uL RBC 4.02 (4.0-5.2) X10^6/uL Hgb 11.6 L (12.0-16.0) g/dL Hct 35.4 L (36-46) % MCV 88.1 (80-100) fL MCH 28.8 (26-34) PG MCHC 32.8 (30-36) % RDW 15.4 H (11.6-14.8) % Plt Count 219 (150-400) X10^3/uL Neut % (Auto) 65.5 (50-75) % Lymph % (Auto) 19.4 L (25-40) % [place] % (Auto) 12.0 (3-14) % Eos % (Auto) 1.9 L (2-4) % Baso % (Auto) 1.2 (0-2) % Neut # (Auto) 5700 (7754-1754) /uL Lymph # (Auto) 1700 (8384-3297) /uL [place] # (Auto) 1000 H (0-900) /uL Eos # (Auto) 200 (0-450) /uL Baso # (Auto) 100 (0-100) /uL PT 14.7 H (10.1-12.7) SECONDS INR 1.3 (0.9-1.3) APTT 32 D (26.4-36.2) SECONDS Sodium 139 (137-145) mmol/L Potassium 3.7 (3.4-5.1) mmol/L Chloride 103 (98-107) mmol/L Carbon Dioxide 28 (22-32) mmol/L BUN 33 H (7-17) mg/dL Creatinine 1.70 H (0.52-1.04) mg/dL Estimated GFR 28.6 L (>60) mL/min BUN/Creatinine Ratio 19.4 (6-22) Glucose 254 H (80-110) mg/dL Calcium 9.1 (8.4-10.2) mg/dL Total Bilirubin 0.5 (0.2-1.3) mg/dL AST 27 (14-36) IU/L ALT 18 (<35) IU/L Alkaline Phosphatase 79 (38-126) U/L Total Creatine Kinase 28 L (30-135) U/L CK-MB (CK-2) TNP CK-MB (CK-2) Rel Index TNP Troponin I 0.018 (0.01-0.034) ng/mL NT-Pro-B Natriuret Pep (<450) pg/mL Total Protein 6.9 (6.3-8.2) g/dL Albumin 3.7 (3.5-5.0) g/dL Globulin 3.2 (1.7-4.1) g/dL Albumin/Globulin Ratio 1.2 (1.0-2.8) Lipase 118 (23-300) U/L 05/28/19 Range/Units 11:30 WBC (4.5-11.0) X10^3/uL RBC (4.0-5.2) X10^6/uL Hgb (12.0-16.0) g/dL Hct (36-46) % MCV (80-100) fL MCH (26-34) PG MCHC (30-36) % RDW (11.6-14.8) % Plt Count (150-400) X10^3/uL Neut % (Auto) (50-75) % Lymph % (Auto) (25-40) % [place] % (Auto) (3-14) % Eos % (Auto) (2-4) % Baso % (Auto) (0-2) % Neut # (Auto) (5395-3157) /uL Lymph # (Auto) (4905-6173) /uL Sioux # (Auto) (0-900) /uL Eos # (Auto) (0-450) /uL Baso # (Auto) (0-100) /uL PT (10.1-12.7) SECONDS INR (0.9-1.3) APTT (26.4-36.2) SECONDS Sodium (137-145) mmol/L Potassium (3.4-5.1) mmol/L Chloride (98-107) mmol/L Carbon Dioxide (22-32) mmol/L BUN (7-17) mg/dL Creatinine (0.52-1.04) mg/dL Estimated GFR (>60) mL/min BUN/Creatinine Ratio (6-22) Glucose (80-110) mg/dL Calcium (8.4-10.2) mg/dL Total Bilirubin (0.2-1.3) mg/dL AST (14-36) IU/L ALT (<35) IU/L Alkaline Phosphatase (38-126) U/L Total Creatine Kinase (30-135) U/L CK-MB (CK-2) CK-MB (CK-2) Rel Index Troponin I (0.01-0.034) ng/mL NT-Pro-B Natriuret Pep 1350 H (<450) pg/mL Total Protein (6.3-8.2) g/dL Albumin (3.5-5.0) g/dL Globulin (1.7-4.1) g/dL Albumin/Globulin Ratio (1.0-2.8) Lipase (23-300) U/L Point of Care Testing Glucose POC 148 Imaging Data Chest x-ray: Radiologist's Impression: [address] [address] XRay Report Signed Patient: Jackie Orta FMR#: [id number] : 5Acct:[id number] Age/Sex: 83 / FDate of Service: 05/28/19 Loc: ED Accession Number: [id number] Procedure: XR chest 1V Ordering Provider: Bebo Rock D.O. PROCEDURE: XR CHEST 1V INDICATIONS: chest pain TECHNIQUE: One view of the chest was acquired. COMPARISON: [facility], CHEST 2 VIEW, 08/08/2017, 12:32. [facility], XR CHEST 1V, 01/28/2019, 11:41. [facility], XR CHEST 2V, 01/25/2018, 9:59. [facility], XR CHEST 1V, 01/30/2019, 7:50. FINDINGS: Surgical changes and devices: None. Lungs and pleura: Lungs are clear. No pleural effusions or pneumothorax. Mediastinum: Mediastinal contours appear normal. Heart size is normal. There is aortic atherosclerosis. Bones and chest wall: No suspicious bony lesions. Degenerative changes of the spine and shoulders are not well characterized, but appear similar to the prior studies. Overlying soft tissues appear unremarkable. IMPRESSION: Stable chest. No acute cardiopulmonary process is evident. Dictated by: Gómez Nunez M.D. on 05/28/2019 at 10:30 Approved by: Gómez Nunez M.D. on 05/28/2019 at 10:56 ECG Data Attestation: I personally reviewed and interpreted this ECG as follows: Prior ECG tracings: available for review Interpretation: SB rate at 58. P are interval 177, QRS duration 94, QT/QTC 460/457. Normal [place]. Nonspecific T-wave abnormalty. Previous EKGs-Afib and SR. MDM Narrative Medical decision making narrative: This is 83 year female who has history of AFib with anticoagulant Xarelto, diabetic using insulins, and hypertention who presents to ED with resolved mid chest tightness during housework this morning at 9:30 a.m. which lasted for 20 minutes with associated symptoms of some short of breath and lightheadedness and resolved after she sat down and rested. Patient also states noticed left leg swelling and wound to her anterior lechuga area on the same leg. EKG showed sinus bradycardia rate at [address] elevation but nonspecific T-wave abnormality. Cardiac enzymes 1st set was negative as 0.018. Patient's kidney function has decreased with creatinine of 1.7 with GFR of 28.6 but which she has patient's baseline. Chest x-ray does not show acute findings. Patient had recently echocardiogram 02/12/2019 with EF of 60-65% and appreciated mild-moderate mitral valve regurgitation and mild aortic valve regurgitation which has not been significantly changed since July 2013. Patient currently does not have oil and gas specialist patient reports. Patient also has hypertensive crisis. BP has been 220's in SBP over 120's in DBP. Patient denies headache, vision change, chest pain at this time and no deficit in neurological exam. NTG 1 in was applied to bring down patient's blood pressure slowly. Reading back patient's old records, patient runs hypertensive during most of her visits in the beginning and it usually trend down to 170s to 180s. However, this has not been effective today and patient remains to have hypertensive over 220s over 80s at this time. Dr. Mahan was contacted at 1330 to consult and discuss for observation admission due to the patient's high risk and hypertensive crisis not managed well at this time. Dr. Mahan kindly accepted the patient's care for continuation of care. Will repeat Cardiac enzymes at 3 hour post 1st check and Lisinopril 20mg has been ordered as requested by Dr. Mahan. The 2nd said cardiac enzyme was negative as well. Troponin of 0.015. <Bebo Rock, DO - Last Filed: 05/28/19 17:36> Lab Data Labs: Lab Results 05/28/19 05/28/19 05/28/19 Range/Units 11:30 11:30 11:30 WBC 8.6 (4.5-11.0) X10^3/uL RBC 4.02 (4.0-5.2) X10^6/uL Hgb 11.6 L (12.0-16.0) g/dL Hct 35.4 L (36-46) % MCV 88.1 (80-100) fL MCH 28.8 (26-34) PG MCHC 32.8 (30-36) % RDW 15.4 H (11.6-14.8) % Plt Count 219 (150-400) X10^3/uL Neut % (Auto) 65.5 (50-75) % Lymph % (Auto) 19.4 L (25-40) % [place] % (Auto) 12.0 (3-14) % Eos % (Auto) 1.9 L (2-4) % Baso % (Auto) 1.2 (0-2) % Neut # (Auto) 5700 (8671-1322) /uL Lymph # (Auto) 1700 (2597-9376) /uL [place] # (Auto) 1000 H (0-900) /uL Eos # (Auto) 200 (0-450) /uL Baso # (Auto) 100 (0-100) /uL PT 14.7 H (10.1-12.7) SECONDS INR 1.3 (0.9-1.3) APTT 32 D (26.4-36.2) SECONDS Sodium 139 (137-145) mmol/L Potassium 3.7 (3.4-5.1) mmol/L Chloride 103 (98-107) mmol/L Carbon Dioxide 28 (22-32) mmol/L BUN 33 H (7-17) mg/dL Creatinine 1.70 H (0.52-1.04) mg/dL Estimated GFR 28.6 L (>60) mL/min BUN/Creatinine Ratio 19.4 (6-22) Glucose 254 H (80-110) mg/dL Calcium 9.1 (8.4-10.2) mg/dL Total Bilirubin 0.5 (0.2-1.3) mg/dL AST 27 (14-36) IU/L ALT 18 (<35) IU/L Alkaline Phosphatase 79 (38-126) U/L Total Creatine Kinase 28 L (30-135) U/L CK-MB (CK-2) TNP CK-MB (CK-2) Rel Index TNP Troponin I 0.018 (0.01-0.034) ng/mL NT-Pro-B Natriuret Pep (<450) pg/mL Total Protein 6.9 (6.3-8.2) g/dL Albumin 3.7 (3.5-5.0) g/dL Globulin 3.2 (1.7-4.1) g/dL Albumin/Globulin Ratio 1.2 (1.0-2.8) Lipase 118 (23-300) U/L 05/28/19 Range/Units 11:30 WBC (4.5-11.0) X10^3/uL RBC (4.0-5.2) X10^6/uL Hgb (12.0-16.0) g/dL Hct (36-46) % MCV (80-100) fL MCH (26-34) PG MCHC (30-36) % RDW (11.6-14.8) % Plt Count (150-400) X10^3/uL Neut % (Auto) (50-75) % Lymph % (Auto) (25-40) % [place] % (Auto) (3-14) % Eos % (Auto) (2-4) % Baso % (Auto) (0-2) % Neut # (Auto) (2390-1692) /uL Lymph # (Auto) (7041-0512) /uL [place] # (Auto) (0-900) /uL Eos # (Auto) (0-450) /uL Baso # (Auto) (0-100) /uL PT (10.1-12.7) SECONDS INR (0.9-1.3) APTT (26.4-36.2) SECONDS Sodium (137-145) mmol/L Potassium (3.4-5.1) mmol/L Chloride (98-107) mmol/L Carbon Dioxide (22-32) mmol/L BUN (7-17) mg/dL Creatinine (0.52-1.04) mg/dL Estimated GFR (>60) mL/min BUN/Creatinine Ratio (6-22) Glucose (80-110) mg/dL Calcium (8.4-10.2) mg/dL Total Bilirubin (0.2-1.3) mg/dL AST (14-36) IU/L ALT (<35) IU/L Alkaline Phosphatase (38-126) U/L Total Creatine Kinase (30-135) U/L CK-MB (CK-2) CK-MB (CK-2) Rel Index Troponin I (0.01-0.034) ng/mL NT-Pro-B Natriuret Pep 1350 H (<450) pg/mL Total Protein (6.3-8.2) g/dL Albumin (3.5-5.0) g/dL Globulin (1.7-4.1) g/dL Albumin/Globulin Ratio (1.0-2.8) Lipase (23-300) U/L Point of Care Testing Glucose POC 148 Discharge Plan Departure Patient Disposition: Admitted as Observation Clinical Impression: Stable angina, Hypertensive crisis Discharge Date/Time: 05/28/19 15:48 Admit Date/Time: 05/28/19 13:56 Admit Provider: Benigno Mahan <Bebo Rock, DO - Last Filed: 05/28/19 17:36> Sign Out Provider Sign Out Attestation: Dr Rock Co-Sign Statement: I was available for consultation during this patient's emergency department visit. This chart is signed by myself for administrative purposes only. I did not have direct contact with this patient during this visit. They were seen independently by the APC.
[2019-05-28] MEDS: lisinopriL 20 MG TABLET PO (14:07)
[2019-05-28 15:55] LABS: Creatine Kinase 33 U/L (30-135)
[2019-05-28 16:08] LABS: Troponin I 0.015 ng/mL (0.01-0.034)
--- NOTE | 2019-05-28 16:40 | PC.NURSE ---
Addendum entered by Deana Love R.N. 05/28/19 21:17: Pt c/o superficial discomfort in center of chest, pointing to her sternum- denies it feels like chest pain this am, but that is is more of a pressure and that she feels her heart is working hard. EKG completed at bedside, pain subsided bythis time. inverted t waves noted, subtle change in septolateral changes. Dr. Hawley present. Addendum entered by Deana Love R.N. 05/28/19 20:19: Pt wtih SBP 180s, HR 66. Pt states her watch monitors HR at home and it rests in the 60s. Will give atenolol now since we are within normal limits Original Note: Admission for HTN crisis. BP 200/77, denies chest pain. No diaphoresis. 20g LAC saline locked. Dr. Mahan at bedside for admission. LLE with +2 pitting edema d/t injury per patient. To give IV Hydralazine.
[2019-05-28] MEDS: HYDRALAZINE 20 MG/ML VIAL (16:45)
[2019-05-28] MEDS: INSULIN ASPART 100 UNIT/ML INSULN PEN SUBCUT ×2 (17:34→21:47)
[2019-05-28] MEDS: INSULIN GLARGINE 100 UNIT/ML 3ML PEN 16 UNIT SUBCUT (17:50)
[2019-05-28] MEDS: allopurinoL 100 MG TABLET PO (17:54)
[2019-05-28 19:25] LABS: Troponin I 0.019 ng/mL (0.01-0.034)
[2019-05-28] MEDS: HYDRALAZINE 20 MG/ML VIAL 10 MG IV (20:18)
[2019-05-28] MEDS: atenoloL 25 MG TABLET PO (20:18)
--- NOTE | 2019-05-28 21:23 | P.HP_ITS ---
History of Present Illness History of Present Illness Date Patient Seen: 05/28/19 Time Patient Seen: 21:24 Chief complaint: CHEST PAINS Narrative: Patient is 83-year-old female well known to me with multiple medical problems but no active coronary artery disease who presents with chest pain. patient woke up today was not feeling well. Was moving some furniture around and just did not feel well which she has a hard time explaining but just felt somewhat weak. She began having chest pain substernal 3 to 07/25 radiation maybe to her neck and her tongue maybe slightly to her back. She had no diaphoresis but felt maybe slightly short of breath. She felt like maybe it lasted 20 minutes. Nothing said no really make it better or worse. At this point she decided she would go to the emergency room. By the time she got to the emergency room her pain was resolved. She was markedly hypertensive at that time. She was given an inch of nitropaste and remained pain-free. Since she has been on the floor she had a little bit of chest pain nothing like she had this morning and it resolved very quickly. Original EKG showed no significant change 2nd EKG showed maybe some ST inversions maybe some slightest he had depression but no other changes. Patient has otherwise been feeling well. Has no major change recently. And has feeling like things are going well. Patient has history of diabetes, hypertension, does not smoke. Does occasionally drink. Does have elevated lipids and has difficulty with statins. She has no other significant new change. She has not had any headaches visual symptoms nausea vomiting or diarrhea no urinary changes. No fevers or chills. No headaches or other changes. 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 Mother age 80 for alcohol heart disease Sibling asthma heart disease depression hyperlipidemia Social history retired, on no smoking, likes her scotch at night. Patient History Medical History HTN (hypertension) (Inactive) HTN (hypertension) (Acute) Hypoglycemia (Inactive) Palpitations (Acute) Paroxysmal atrial fibrillation (Inactive) SOB (shortness of breath) (Inactive) Surgical History No pertinent past surgical history (Acute) Family & Social History Social History: household members none Prior Living Arrangements Apartment/Condo Safety & Behavioral: Feels Safe in Current Yes Environment Been Physically Hurt or No Threatened By a Person Suicidal Ideation Description None Suicide Plan Description No Plan Tobacco & Substance use: Smoking Status Never smoker alcohol intake current alcohol intake frequency 0-2 drinks per day Substance Use Type does not use Meds Home Medications and Allergies Home Medications Medication Instructions Recorded Confirmed Type Lantus U-100 Insulin 20 unit SQ QAM #0 10/16/12 05/28/19 History ezetimibe [Zetia] 10 mg PO DAILY #0 10/16/12 05/28/19 History insulin lispro [Humalog U-100 10 - 15 u SQ QID PRN #0 05/31/16 05/28/19 History Insulin] atenolol 25 mg PO BID 01/25/18 05/28/19 History chlorthalidone 25 mg PO DAILY 01/25/18 05/28/19 History allopurinol 100 mg PO QPM 08/08/18 05/28/19 History levothyroxine 125 mcg PO DAILY 08/08/18 05/28/19 History prednisone 5 mg PO DAILY 08/08/18 05/28/19 History rivaroxaban [Xarelto] 15 mg PO DAILY 08/08/18 05/28/19 History colchicine [Colcrys] See Rx Instructions .ROUTE 01/28/19 05/28/19 History .COMPLEX PRN MDD 3 tab meclizine 12.5 - 25 mg PO BEDTIME PRN 01/28/19 05/28/19 History acetaminophen 325 mg PO PRN PRN 05/28/19 05/28/19 History flash glucose sensor [FreeStyle 05/28/19 05/28/19 History Thomas 14 Day Sensor] insulin glargine [Lantus Solostar 16 unit SUBCUT QPM 05/28/19 05/28/19 History U-100 Insulin] prednisone 4 mg PO DAILY 05/28/19 05/28/19 History Allergies Allergy/AdvReac Type Severity Reaction Status Date / Time kiwi Allergy Severe ANAPHYLAXIS Verified 05/28/19 11:19 Sulfa (Sulfonamide Allergy Severe unknown Verified 01/30/19 10:23 Antibiotics) meperidine AdvReac Severe I GO NUTS Verified 01/30/19 10:23 morphine AdvReac Severe DIZZY Verified 01/30/19 10:23 Review of Systems Review of Systems ROS: Yes All systems reviewed with the patient and are negative except as otherwise documented Exam Vital Signs (past 8 hours): - 05/28/19 14:00 05/28/19 14:36 05/28/19 15:13 Temperature 97.6 F Pulse Rate 61 53 L Respiratory Rate 35 H 28 H Blood Pressure 225/102 H 207/80 H Blood Pressure [Left Arm] 250/80 H Blood Pressure [Right Arm] Pulse Oximetry 100 91 05/28/19 15:26 05/28/19 15:36 05/28/19 15:55 Temperature 98.2 F Pulse Rate 69 69 54 L Respiratory Rate 18 18 Blood Pressure 207/80 H 200/77 H Blood Pressure [Left Arm] Blood Pressure [Right Arm] 207/80 H Pulse Oximetry 98 05/28/19 17:03 05/28/19 17:52 05/28/19 18:00 Temperature 98.4 F Pulse Rate 60 65 66 Respiratory Rate 24 22 Blood Pressure 171/85 H 147/66 H 139/63 Blood Pressure [Left Arm] Blood Pressure [Right Arm] Pulse Oximetry 98 99 05/28/19 19:05 05/28/19 20:00 05/28/19 21:20 Temperature 98.5 F Pulse Rate 76 60 93 H Respiratory Rate 23 19 Blood Pressure 171/75 H 180/74 H 163/65 H Blood Pressure [Left Arm] Blood Pressure [Right Arm] Pulse Oximetry 99 97 Oxygen Delivery Method Room Air Narrative Exam Narrative: Alert smiling female no acute distress. Sclerae without icterus mucous membranes moist. Neck is supple without adenopathy JVD or bruits. Lungs are clear. Heart's regular rate and rhythm with 2/6 systolic murmur left sternal border. Abdomen is soft positive bowel sounds nontender. Chest wall shows no tenderness to palpation. Extremities left leg with mid lateral surface 2 cm irritated slightly tender eschar. No significant erythema. Good pulses. Neurologic exam is intact. psychologically appropriate interactive and smiling Objective Labs Result Diagrams: 05/28/19 11:30 05/28/19 11:30 Labs: Laboratory Results - last 24 hr 05/28/19 05/28/19 05/28/19 11:30 11:30 11:30 WBC 8.6 RBC 4.02 Hgb 11.6 L Hct 35.4 L MCV 88.1 MCH 28.8 MCHC 32.8 RDW 15.4 H Plt Count 219 Neut % (Auto) 65.5 Lymph % (Auto) 19.4 L Johnson % (Auto) 12.0 Eos % (Auto) 1.9 L Baso % (Auto) 1.2 Neut # (Auto) 5700 Lymph # (Auto) 1700 Johnson # (Auto) 1000 H Eos # (Auto) 200 Baso # (Auto) 100 PT 14.7 H INR 1.3 APTT 32 D Sodium 139 Potassium 3.7 Chloride 103 Carbon Dioxide 28 BUN 33 H Creatinine 1.70 H Estimated GFR 28.6 L BUN/Creatinine Ratio 19.4 Glucose 254 H Calcium 9.1 Total Bilirubin 0.5 AST 27 ALT 18 Alkaline Phosphatase 79 Total Creatine Kinase 28 L CK-MB (CK-2) TNP CK-MB (CK-2) Rel Index TNP Troponin I 0.018 NT-Pro-B Natriuret Pep Total Protein 6.9 Albumin 3.7 Globulin 3.2 Albumin/Globulin Ratio 1.2 Lipase 118 05/28/19 05/28/19 05/28/19 11:30 15:37 18:55 WBC RBC Hgb Hct MCV MCH MCHC RDW Plt Count Neut % (Auto) Lymph % (Auto) Johnson % (Auto) Eos % (Auto) Baso % (Auto) Neut # (Auto) Lymph # (Auto) Johnson # (Auto) Eos # (Auto) Baso # (Auto) PT INR APTT Sodium Potassium Chloride Carbon Dioxide BUN Creatinine Estimated GFR BUN/Creatinine Ratio Glucose Calcium Total Bilirubin AST ALT Alkaline Phosphatase Total Creatine Kinase 33 CK-MB (CK-2) TNP CK-MB (CK-2) Rel Index TNP Troponin I 0.015 0.019 NT-Pro-B Natriuret Pep 1350 H Total Protein Albumin Globulin Albumin/Globulin Ratio Lipase Assessment & Plan Assessment & Plan narrative: Chest pain. initial EKG showed no change 2nd EKG shows some slight T-wave inversions laterally. She did have a little bit of discomfort blood pressure has come down and at this point will replace nitropaste. Her troponins 1 1000 is up from previous evaluation will see how that does in the morning. Will probably need to consult fitness trainer. May need further testing depending on what they recommend. I think were stable for the night. Will follow CPK and troponin over the next 8 hours. Hypertensive crisis. Continued her usual medicines and started hydralazine which has worked well. We now have her on an inch of nitropaste every 6 hours will see how things go. Re-evaluate in a.m.. If needed we may try beta- марина. Type 2 diabetes. He has will continue Lantus and as needed Humalog. Patient has been in adequate control. Follow from there. Renal insufficiency has been stable will follow. Recheck in a.m.. Hypothyroidism will continue current medicine. Hyperlipidemia patient has been unable to take statins but may need to try to push depending on what her cardiac status is will see how things go. Code status no code. Atrial fibrillation. Stable. Certainly no evidence of atrial fibrillation now. Will need to watch closely DVT prophylaxis already on anticoagulation therapy. Disposition patient will be admitted watch closely. Probably will need some type of cardiac evaluation prior to being discharged depending on enzymes tomorrow.
[2019-05-29] VITALS (11 sets, daily range): BP systolic 137–190; BP diastolic 61–80; PULSE 57–71; RESP 11–21; TEMP 36.3–37.3; O2SAT 94–96
[2019-05-29 01:12] LABS: Troponin I 0.024 ng/mL (0.01-0.034)
[2019-05-29] MEDS: LEVOTHYROXINE 125 MCG TABLET PO (07:11)
[2019-05-29] MEDS: NITROGLYCERIN OINT 1 INCH/GM OINT...G. TOP ×3 (07:11→21:34)
[2019-05-29] MEDS: atenoloL 25 MG TABLET PO ×2 (07:25→21:33)
[2019-05-29] MEDS: ASPIRIN EC 81 MG TABLET PO (07:25)
[2019-05-29] MEDS: CHLORTHALIDONE 25 MG TABLET PO (07:26)
[2019-05-29] MEDS: EZETIMIBE 10 MG TABLET PO (07:26)
[2019-05-29] MEDS: INSULIN GLARGINE 100 UNIT/ML 3ML PEN 20 UNIT SUBCUT (07:34)
[2019-05-29] MEDS: predniSONE 5 MG TABLET PO (08:38)
[2019-05-29] MEDS: predniSONE 1 MG TABLET 4 MG PO (08:38)
[2019-05-29] MEDS: RIVAROXABAN 10 MG TABLET 15 MG PO (08:38)
--- NOTE | 2019-05-29 08:39 | P.PN_ITS ---
Subjective Subjective Date Patient Seen: 05/29/19 Time Patient Seen: 08:39 Interval history: Patient feeling well this morning. Has not had any chest pain since last night. No other significant changes. Otherwise no new changes. Blood pressures been hanging in the 160s and was showing sinus rhythm. Exam Vital Signs (past 8 hours): - 05/29/19 01:00 05/29/19 02:00 05/29/19 03:00 Pulse Rate 63 61 61 Respiratory Rate 17 11 L 11 L Blood Pressure 137/61 156/69 H 156/69 H Pulse Oximetry 95 96 96 05/29/19 04:00 05/29/19 07:11 05/29/19 07:52 Pulse Rate 63 57 L 64 Respiratory Rate 16 21 Blood Pressure 170/70 H 170/70 H 165/68 H Pulse Oximetry 94 95 Oxygen Delivery Method Room Air Narrative Exam Narrative: Alert smiling elderly female in no acute distress Neck supple without adenopathy JVD or bruits. Lungs are clear. Heart regular rate and rhythm with unchanged murmur. Abdomen is benign. Extremities without cyanosis clubbing edema. Continues with left-sided wound on lower leg. Objective Labs Result Diagrams: 05/28/19 11:30 05/28/19 11:30 Labs: Laboratory Results - last 24 hr 05/28/19 05/28/19 05/28/19 11:30 11:30 11:30 WBC 8.6 RBC 4.02 Hgb 11.6 L Hct 35.4 L MCV 88.1 MCH 28.8 MCHC 32.8 RDW 15.4 H Plt Count 219 Neut % (Auto) 65.5 Lymph % (Auto) 19.4 L [place] % (Auto) 12.0 Eos % (Auto) 1.9 L Baso % (Auto) 1.2 Neut # (Auto) 5700 Lymph # (Auto) 1700 [place] # (Auto) 1000 H Eos # (Auto) 200 Baso # (Auto) 100 PT 14.7 H INR 1.3 APTT 32 D Sodium 139 Potassium 3.7 Chloride 103 Carbon Dioxide 28 BUN 33 H Creatinine 1.70 H Estimated GFR 28.6 L BUN/Creatinine Ratio 19.4 Glucose 254 H Calcium 9.1 Total Bilirubin 0.5 AST 27 ALT 18 Alkaline Phosphatase 79 Total Creatine Kinase 28 L CK-MB (CK-2) TNP CK-MB (CK-2) Rel Index TNP Troponin I 0.018 NT-Pro-B Natriuret Pep Total Protein 6.9 Albumin 3.7 Globulin 3.2 Albumin/Globulin Ratio 1.2 Lipase 118 05/28/19 05/28/19 05/28/19 11:30 15:37 18:55 WBC RBC Hgb Hct MCV MCH MCHC RDW Plt Count Neut % (Auto) Lymph % (Auto) [place] % (Auto) Eos % (Auto) Baso % (Auto) Neut # (Auto) Lymph # (Auto) [place] # (Auto) Eos # (Auto) Baso # (Auto) PT INR APTT Sodium Potassium Chloride Carbon Dioxide BUN Creatinine Estimated GFR BUN/Creatinine Ratio Glucose Calcium Total Bilirubin AST ALT Alkaline Phosphatase Total Creatine Kinase 33 CK-MB (CK-2) TNP CK-MB (CK-2) Rel Index TNP Troponin I 0.015 0.019 NT-Pro-B Natriuret Pep 1350 H Total Protein Albumin Globulin Albumin/Globulin Ratio Lipase 05/29/19 00:41 WBC RBC Hgb Hct MCV MCH MCHC RDW Plt Count Neut % (Auto) Lymph % (Auto) [place] % (Auto) Eos % (Auto) Baso % (Auto) Neut # (Auto) Lymph # (Auto) [place] # (Auto) Eos # (Auto) Baso # (Auto) PT INR APTT Sodium Potassium Chloride Carbon Dioxide BUN Creatinine Estimated GFR BUN/Creatinine Ratio Glucose Calcium Total Bilirubin AST ALT Alkaline Phosphatase Total Creatine Kinase CK-MB (CK-2) CK-MB (CK-2) Rel Index Troponin I 0.024 NT-Pro-B Natriuret Pep Total Protein Albumin Globulin Albumin/Globulin Ratio Lipase Assessment & Plan Assessment & Plan narrative: Chest pain. Patient has had no recurrent chest pain since nitropaste was replaced. She does have continued anterior and lateral ST changes minimal but present. At this point will need cyanide furnace operator to evaluate and decide what further testing needs to be done. She seems to be stable at this time. Troponin very slight increased but not significant note CPK bump. Hypertension. Very difficult to control at this time. Patient is on a moderate amount of medicines to control her pressure. Certainly hydralazine and nitro paste are new. Will see what cyanide furnace operator feels should be best approach to medication at this time. Hypokalemia. Will replace and recheck tomorrow. Left leg wound. Will need wound care as outpatient. Not something we need to do at this time. Type 2 diabetes. Stable. Atrial fibrillation. No evidence of recurrence. DVT prophylaxis on Eliquis. Code status no code. Disposition. Certainly will probably need at least 24 more hours. Depending on what cyanide furnace operator recommends at this time. Hopefully that will see her later today. Time Spent With Patient Time with patient: 25 - 35 minutes
[2019-05-29 11:48] LABS: Magnesium 2.1 mg/dL (1.6-2.3)
[2019-05-29] MEDS: INSULIN ASPART 100 UNIT/ML INSULN PEN SUBCUT ×3 (13:48→21:30)
[2019-05-29] MEDS: POTASSIUM CHLORIDE 20 MEQ TAB 40 MEQ PO (14:02)
[2019-05-29] MEDS: AMLODIPINE 5 MG TABLET PO (14:35)
--- NOTE | 2019-05-29 16:07 | CM.DANOTE ---
Patient is an 83 year old female who was admitted on 05/28/19 for Chest Pains. Pt has MCR and REG PPO for insurance and her PCP is Dr. Mahan. EMR was reviewed. Per MD, pt seems to be improved but will consult Cardiology for likely plan of d/c home tomorrow. SW met bedside with pt and explained role and pt confirms that she lives at [facility] and has lived there for about 6 months and still owns her own house. Pt has supportive Dtr Jimena and son lyndsey Ghosh who do not live locally and Dtr/DPOA Jackie. Pt is independent with ADL's and preference is to d/c home today if possible but willing to wait for Technical Rep. Pt does not anticipate any SW needs at d/c and denies any hx of HH or SNF. Plan: SW to follow after Cardiology Consult to determine if any identified discharge planning needs prior to return to [facility]. BIN Singh Discharge Planning/Care Management CM Discharge Assessment Start: 05/29/19 16:06 Freq: Status: Active Protocol: Document 05/29/19 16:06 BF (Rec: 05/29/19 16:07 [id number]) Discharge Planning Assessment Assigned Director Of Trauma CHAS Mabry Advance Directives? Yes Advance Directives on File Yes History Provided By Patient,Medical Record Has Patient been admitted in last 30 No days? Prior Living Arrangements Apartment/Condo Household Members none Type of transporation used prior to Relies on Others admit Facility Name Admitted From: [facility] Willing to Return to Facility? Yes Independent with ADL's Yes Is patient alert and oriented? Yes Caregiver for Another No Barriers to Discharge No Discharge Plan Home Whiteboard Updated in Patient Room with Yes name and ext. # of Director Of Trauma Review Status In Process Please Provide Date Initial DC 05/29/19 Assessment Was Performed Next Review Type Continued Stay Review
--- NOTE | 2019-05-29 16:58 | PM.CN ---
History of Present Illness Consult details Date Patient Seen: 05/29/19 Chief complaint: CHEST PAINS Reason for consult: chest pain Narrative: This 83 years old pleasant female who has a history of diabetes mellitus, hypertension, hyperlipidemia, hypothyroidism, paroxysmal atrial fibrillation, pad got admitted to [facility] on May 28, 2019 because of chest pain. According to the patient she was moving furniture yesterday. She developed chest pain which was on a scale of 1-10 3-4 in intensity. It was substernal and then radiated to worse neck and tongue as well as slightly in her back. No nausea vomiting sweating. She felt fatigue. It lasted about 20 minutes. She decided to be seen in the emergency room. According to the patient she drove to the ER. Her systolic blood pressure was about 180. She got admitted to the hospital. Denies any fever cough expectoration or recurrence of chest pain or palpitation or bleeding or strokelike symptoms. She is compliant with her medications.? ? 2-D echo on August 05, 2013 revealed normal left ventricle and right ventricle function with LV ejection fraction 60-65% with mild left atrium enlargement with [id number] mitral regurgitation. ? In October 2011, she had exercise perfusion study that time she walked on Shukri protocol for 7 minutes and 16 seconds achieved 83 per percent of target heart rate with his stress LV ejection fraction 70% without any obvious reversible ischemia or infarction. EKG on May 29, 2019 at about 6:06 AM showed sinus rhythm with early transition, asymmetrical T-wave inversion in anterolateral leads which are old, QTC 456 ms. ? Meds Home Medications and Allergies Home Medications Medication Instructions Recorded Confirmed Type Lantus U-100 Insulin 20 unit SQ QAM #0 10/16/12 05/28/19 History ezetimibe [Zetia] 10 mg PO DAILY #0 10/16/12 05/28/19 History insulin lispro [Humalog U-100 10 - 15 u SQ QID PRN #0 05/31/16 05/28/19 History Insulin] atenolol 25 mg PO BID 01/25/18 05/28/19 History chlorthalidone 25 mg PO DAILY 01/25/18 05/28/19 History allopurinol 100 mg PO QPM 08/08/18 05/28/19 History levothyroxine 125 mcg PO DAILY 08/08/18 05/28/19 History prednisone 5 mg PO DAILY 08/08/18 05/28/19 History rivaroxaban [Xarelto] 15 mg PO DAILY 08/08/18 05/28/19 History colchicine [Colcrys] See Rx Instructions .ROUTE 01/28/19 05/28/19 History .COMPLEX PRN MDD 3 tab meclizine 12.5 - 25 mg PO BEDTIME PRN 01/28/19 05/28/19 History acetaminophen 325 mg PO PRN PRN 05/28/19 05/28/19 History flash glucose sensor [FreeStyle 05/28/19 05/28/19 History Thomas 14 Day Sensor] insulin glargine [Lantus Solostar 16 unit SUBCUT QPM 05/28/19 05/28/19 History U-100 Insulin] prednisone 4 mg PO DAILY 05/28/19 05/28/19 History Allergies Allergy/AdvReac Type Severity Reaction Status Date / Time kiwi Allergy Severe ANAPHYLAXIS Verified 05/28/19 11:19 Sulfa (Sulfonamide Allergy Severe unknown Verified 01/30/19 10:23 Antibiotics) meperidine AdvReac Severe I GO NUTS Verified 01/30/19 10:23 morphine AdvReac Severe DIZZY Verified 01/30/19 10:23 Review of Systems Review of Systems ROS: Yes All systems reviewed with the patient and are negative except as otherwise documented Exam Vital Signs (past 8 hours): - 05/29/19 11:00 05/29/19 16:23 Temperature 99.2 F Pulse Rate 64 61 Respiratory Rate 18 18 Blood Pressure 190/80 H Pulse Oximetry 96 Oxygen Delivery Method Room Air Oxygen Flow Rate 0 Const General: cooperative [facility] Head: normal to inspection Eyes Other: no significant anemia or jaundice Neck Other: no obvious JVD Chest Other: no obvious chest wall tenderness Resp Other: no obvious crepitation or rhonchi Cardio Other: S1-S2 normal, no S3, no S4, grade 2-3 x 6 ejection systolic murmurat the base GI Other: no pulsatile mass, hepatosplenomegaly Skin Other: no gangrene Neuro Other: no obvious motor or sensory deficit Extrem Other: mild bilateral pedal edema Psych Other: alert oriented to time place and person Objective Labs Result Diagrams: 05/28/19 11:30 05/28/19 11:30 Labs: Laboratory Results - last 24 hr 05/28/19 05/29/19 05/29/19 18:55 00:41 11:30 Magnesium 2.1 Troponin I 0.019 0.024 Assessment & Plan Assessment and plan (1) Chest discomfort: Current visit: Yes Status: Acute (2) Hypertensive urgency: Current visit: Yes Status: Acute (3) Paroxysmal atrial fibrillation: Current visit: Yes Status: Acute (4) Dyslipidemia (high LDL; low HDL): Current visit: Yes Status: Acute Assessment & Plan narrative: Her chest pain episodes appears to be anginal pain. In the hospital she has ruled out for acute myocardial infarction. I don't see any new significant ST-T changes. Patient has chronic asymmetrical T-wave inversion in anterolateral leads. Rhythm is sinus. She is chest pain-free. Clinically suspect aortic stenosis murmur. Her blood pressure is uncontrolled. At present no strokelike symptoms. She has history of CAD risk factors as well as abdominal atherosclerosis in the past. At present no critical limb ischemia features. I didn't appreciate obvious renal bruit. Discussed about further cardiac workup for CAD diagnosis and risk stratification. Patient is not interested in aggressive workup like left heart catheterization. She agreed to have noninvasive evaluation. Will recommend 2-D echo and if there is no significant aortic stenosis, consider exercise perfusion study for CAD diagnosis and risk stratification. I had discussion with Dr. Mahan about her hypertensive medications. She is allergic to DIANNE inhibitor with lip swelling hence will not recommend ARB as well. Okay to start hydralazine 20 mg 3 times a day. She used to take statin. We'll put her back on Crestor 5 mg daily to begin with. She is on chronic Xarelto 15 mg daily for paroxysmal A. fib along with beta марина as well as calcium channel марина. At present she is in sinus rhythm. If on the stress test no significant ischemic burden, consider medical management. Tomorrow my associate Dr. De Souza will be available To evaluate the patient. Thanks for the cardiology consult. This note was generated utilizing voice recognition software. While attempts have been made to correct mistakes, common errors may occur, including substitution of words that sound phonetically similar to the intended word as well as random substitution errors. Please take this into consideration and use clinical context when necessary.
[2019-05-29] MEDS: allopurinoL 100 MG TABLET PO (17:13)
[2019-05-29] MEDS: INSULIN GLARGINE 100 UNIT/ML 3ML PEN 16 UNIT SUBCUT (21:29)
[2019-05-29] MEDS: ROSUVASTATIN 10 MG TABLET 5 MG PO (21:31)
[2019-05-29] MEDS: SODIUM CHLORIDE 0.9% FLUSH 10 ML IV (22:30)
[2019-05-30] VITALS (12 sets, daily range): BP systolic 152–205; BP diastolic 68–84; PULSE 55–71; RESP 16–59; TEMP 36.3–36.8; O2SAT 94–97
[2019-05-30] MEDS: NITROGLYCERIN OINT 1 INCH/GM OINT...G. TOP ×4 (03:51→21:38)
--- NOTE | 2019-05-30 04:36 | PC.NURSE ---
Pt. just came back from the bathroom for void when this B/P was taken, will recheck.
[2019-05-30] MEDS: HYDRALAZINE 20 MG/ML VIAL 10 MG IV (05:25)
[2019-05-30 05:45] LABS: BUN Creatinine Ratio 26.5 (6-22); Blood Urea Nitrogen 45 mg/dL (7-17); Calcium 9.3 mg/dL (8.4-10.2); Carbon Dioxide 22 mmol/L (22-32); Chloride 105 mmol/L (98-107); Estimated Glomerular Filt Rate 28.6 mL/min (>60); Glucose 331 mg/dL (80-110); HEMOLYSIS < 15 (0-50); Potassium 4.2 mmol/L (3.4-5.1); Sodium 137 mmol/L (137-145)
[2019-05-30] MEDS: INSULIN ASPART 100 UNIT/ML INSULN PEN SUBCUT ×5 (06:28→21:37)
[2019-05-30] MEDS: LEVOTHYROXINE 125 MCG TABLET PO (06:32)
--- NOTE | 2019-05-30 06:40 | PC.NURSE ---
B/P after 10 mg Hydralazine given.
--- NOTE | 2019-05-30 06:59 | DI.ECHO.S_ITS ---
Echocardiogram Report + + :Name: KELLY NAYLOR Study Date: 05/30/2019 Height: 67 in : :Hospital Weight: 174 lb : : Gender: Female BSA: 1.9 m2 : :: 1935 Age: 83 yrs BP: 197/72 mmHg: :Ordering Physician: [place] : :Hospitalist Performed By: Jennifer Samuel : :Referring: NATALIIA CRUZ : + + Interpretation Summary The left ventricle is normal in size and wall thickness. The ejection fraction is estimated to be 60-65%. There has been no significant change in LVEF since the previous study. The right ventricle is normal in size and function. There is mild to moderate mitral regurgitation. Compared to the prior echo study, there has been no change in the severity of mitral regurgitation. The aortic valve is trileaflet. There is mildly reduced leaflet mobility. The peak aortic velocity is 2.46 m/sec. The aortic valve mean gradient is 13.6 mmHg. The peak aortic velocity on the previous exam was 2.3 m/sec. There is mild aortic stenosis. There is mild aortic regurgitation. Compared to the prior echo study, there has been no change in the severity of aortic regurgitation. Procedure: A two-dimensional transthoracic echocardiogram with color flow and Doppler was performed. The study quality was technically adequate. Comparison is made with the echocardiogram of 02/12/2019. The patient was in normal sinus rhythm during the exam. Left Ventricle: The left ventricle is normal in size and wall thickness. There is no thrombus. The ejection fraction is estimated to be 60-65%. There has been no significant change since the previous study. There are no focal wall motion abnormalities. MV E/A: 0.85 Med Peak E' Frank: 6.2 cm/sec E/E' med: 17.9. Right Ventricle: The right ventricle is normal in size and function. Atria: The left atrium is severely dilated. The left atrium has remained unchanged in size since the prior echo exam. The right atrium is normal in size. There is no Doppler evidence for an interatrial shunt. Mitral Valve: There is mild mitral annular calcification. The mitral valve leaflets are slightly calcified. The mitral valve leaflets appear mildly thickened, but open well. There is mild to moderate mitral regurgitation. Compared to the prior echo study, there has been no change in the severity of mitral regurgitation. Aortic Valve: The aortic valve is trileaflet. The aortic valve is mildly calcified. There is mildly reduced leaflet mobility. There is mild aortic stenosis. The peak aortic velocity is 2.46 m/sec. The aortic valve mean gradient is 13.6 mmHg. The peak aortic velocity on the previous exam was 2.3 m/sec. There is mild aortic regurgitation. Compared to the prior echo study, there has been no change in the severity of aortic regurgitation. Tricuspid Valve: The tricuspid valve is normal in structure and function. There is mild tricuspid regurgitation. The right ventricular systolic pressure is estimated to be at least 27 mmHg based on an estimated right atrial pressure of 3 mm Hg. Compared to the prior echo exam, there has been no change in TR severity. Pulmonic Valve: The pulmonic valve is not well seen, but is grossly normal. There is no pulmonic valvular regurgitation. Great Vessels: The aortic root is normal size. The ascending aorta is normal in size. The IVC is of normal diameter and collapses greater than 50% with a sniff. This suggests a low right atrial pressure of 3 mm Hg. Pericardium/ Pleura There is no pericardial effusion. MMode/2D Measurements & Calculations LVIDd: 4.5 cm LVOT diam: 2.0 cm LVIDs: 3.0 cm Ao root diam: 3.0 cm FS: 32.9 % asc Aorta Diam: 3.3 cm EPSS: 0.95 cm IVSd: 0.99 cm LVPWd: 1.0 cm LV ray. diameter/BSA (cm/m^2): 2.4 LV sys. diameter/BSA (cm/m^2): 1.6 LA A2 area: 27.9 cm2 RA long axis: 4.4 cm LA A4 area: 21.4 cm2 RA area: 14.4 cm2 LA length (vol): 5.4 cm RA vol: 39.7 ml LA vol: 93.5 ml RA : 20.9 ml/m2 LA vol index: 49.0 ml/m2 IVC diam: 2.0 cm RVD1 (basal): 2.7 cm RVD2 (mid): 2.5 cm TAPSE: 2.5 cm Doppler Measurements & Calculations Ao V2 max: 246.5 cm/sec LVOT Max Frank: 104.6 cm/sec Ao V2 mean: 174.8 cm/sec LV V1 max P.4 mmHg Ao max P.3 mmHg LV V1 VTI: 29.8 cm Ao mean P.6 mmHg NAS(I,D): 1.4 cm2 Ao V2 VTI: 67.5 cm NAS(V,D): 1.3 cm2 sev ratio: 0.44 NAS indexed to BSA (cm^2/m^2): 0.72 AI P1/2t: 518.3 msec AI dec slope: 176.4 cm/sec2 MV E max frank: 111.2 cm/sec TR max frank: 248.3 cm/sec MV A max frank: 130.6 cm/sec TR max P.7 mmHg MV E/A: 0.85 PA V2 max: 92.1 cm/sec Med Peak E' Frank: 6.2 cm/sec PA V2 mean: 69.4 cm/sec E/E' med: 17.9 PA mean P.1 mmHg Lat Peak E' Frank: 5.3 cm/sec PA pr(Accel): 15.2 mmHg E/E' lat: 20.9 PA Accel Time: 0.14 sec E/e' average: 19.4 MV dec time: 0.27 sec MV P1/2t: 78.0 msec MV P1/2t max frank: 109.9 cm/sec SV(LVOT): 92.9 ml MVA(P1/2t): 2.8 cm2 _ Reading Physician:09:09 AM
[2019-05-30] MEDS: RIVAROXABAN 10 MG TABLET 15 MG PO (08:27)
[2019-05-30] MEDS: AMLODIPINE 5 MG TABLET PO (08:27)
[2019-05-30] MEDS: ASPIRIN EC 81 MG TABLET PO (08:27)
[2019-05-30] MEDS: SODIUM CHLORIDE 0.9% FLUSH 10 ML IV ×2 (08:28→21:35)
[2019-05-30] MEDS: predniSONE 1 MG TABLET 4 MG PO (08:29)
[2019-05-30] MEDS: INSULIN GLARGINE 100 UNIT/ML 3ML PEN 20 UNIT SUBCUT ×2 (08:30→21:36)
[2019-05-30] MEDS: predniSONE 5 MG TABLET PO (08:30)
[2019-05-30] MEDS: CHLORTHALIDONE 25 MG TABLET PO (08:30)
[2019-05-30] MEDS: EZETIMIBE 10 MG TABLET PO (08:31)
--- NOTE | 2019-05-30 11:10 | DI.NM.S_ITS ---
PROCEDURE: NM ANDRAE PERF SPECT REST & STR Rest and exercise myocardial perfusion SPECT with gated imaging and ejection fraction RADIOPHARMACEUTICAL: 10.2 mCi Tc-99m sestamibi IV at rest and 26.0 mCi Tc-99m sestamibi IV at peak exercise. A two day-protocol was performed. INDICATIONS: chest pain TECHNIQUE: Radiopharmaceutical was injected at peak stress test, and also at rest. SPECT images were obtained. SPECT myocardial perfusion images were displayed in short axis, horizontal long axis, and vertical long axis views. Gated images were reviewed using Freever software. COMPARISON: None. CARDIAC STRESS: A standard Shukri treadmill exercise tolerance test was performed by the patient under the supervision of an attending staff. The patient exercised for 5 minutes and 50 seconds; functional aerobic impairment (LAUREL) is -32%. Hemodynamic data: There is normal blood pressure and heart rate response to exercise stress. Patient achieved greater [place] [address] of double product with exercise. Symptoms: Patient denied chest pain during exercise. EKG: Sinus rhythm with mild horizontal ST depressions in the anterolateral leads at rest that become moderate with exercise. No ectopy FINDINGS: Raw data: There is good myocardial labeling by radiotracer. No significant motion artifacts. Umkw-yo-oxsnv ratio is 0.26 (normal is less than 0.38 for sestamibi tracer, and less than 0.50 for thallium tracer). Left ventricle function: Gated images demonstrate normal left ventricle wall thickening. No segmental wall motion abnormality. No transient ischemic dilation; TID is 0.98 (normal less than 1.3). The left ventricle resting end-diastolic volume is 86 mL. Left ventricle stress ejection fraction is 78%; normal values are above 45%. Myocardial perfusion: There is normal distribution of activity in the left and right ventricular myocardium. No fixed or reversible perfusion defects. IMPRESSION: Low risk, normal treadmill nuclear stress test 1) No perfusion evidence of ischemia or infarction. 2) Normal left ventricular size, wall motion, and systolic function (EF post stress 78%). 3) ECG non-diagnostic due to baseline ST depressions. 4) No angina during the study. 5) Very good exercise capacity (7.0 METs, LAUREL -32%). Adequate stress test. 6) Compared to the nuclear stress test done 03/21/2018, no significant change. Findings discussed with Dr. Mahan over the phone. Dictated by: Daniela Bryan MD on 05/31/2019 at 13:08 Approved by: Daniela Bryan MD on 05/31/2019 at 13:13
--- NOTE | 2019-05-30 15:02 | PC.NURSE ---
Pt voicing concerns regarding elevated BG. After lunch, BG up to 300s. Called to Dr. Miranda. Left message for MD to return phone call. Dr. Miranda called back. Reviewed BGs. Reviewed current med regimen. TORB for increased lantus HS dose and breakfast/dinner basal insulin. Dr. Miranda instructed to continue high dose correctional novolog.
[2019-05-30] MEDS: atenoloL 25 MG TABLET PO (17:07)
[2019-05-30] MEDS: allopurinoL 100 MG TABLET PO (17:07)
--- NOTE | 2019-05-30 17:55 | P.PN_ITS ---
Subjective Subjective Date Patient Seen: 05/30/19 Time Patient Seen: 17:19 Interval history: This is an 83-year-old female admitted with chest pains. Not having chest pain at this point. Had earlier echocardiogram today which did not show major motility abnormalities. Was supposed to have a treadmill Mibi today but was unable to schedule they got that set up for tomorrow morning. Also reported significant elevation of blood sugars. The been as high as 300. Have increased her baseline insulin and Lantus. Will continue with sliding scale in between those standard doses if she needs it. Treadmill is set up for tomorrow be reviewed by Cardiology. If patient does not past that than she would probably be transferred to [facility]. If she does their opinion is that she can't go home and evaluate these multiple issues with outpatient with her metal forger's assistant. Nonhealing leg ulcer could be part of the issue with her elevated sugars but so could undiagnosed a cardiac disease as well. Patient has some elevated blood pressure and there was discussion about a beta- марина however she is symptom-free at this point and would not want to start a beta-марина this in prior to her treadmill evaluation. If her pressure goes up or she becomes symptomatic consider amlodipine or increase of her nitropaste. Past medical history diabetes hypertension hyperlipidemia hypothyroidism intermittent atrial fibrillation Family history negative except for diabetes. Social history patient has a very good support system built in and seems very interactive in functional 14 point review of systems evaluated and negative except as above Exam Vital Signs (past 8 hours): - 05/30/19 10:05 05/30/19 10:46 05/30/19 11:00 Temperature 98.1 F 97.9 F Pulse Rate 61 62 60 Respiratory Rate 20 20 Blood Pressure 155/68 H 155/68 H 152/70 H Pulse Oximetry 97 97 05/30/19 16:01 Temperature 98.3 F Pulse Rate 68 Respiratory Rate 20 Blood Pressure 199/81 H Pulse Oximetry Oxygen Delivery Method Room Air Oxygen Flow Rate 0 Narrative Exam Narrative: Patient sitting comfortably up in chair speaking very clearly and in good spirits without symptoms PERRLA EOMs are intact Neck without mass and is supple Lungs are clear to auscultation percussion Cardiovascular exam shows regular rate and rhythm 2/6 systolic murmur trace edema Abdomen nontender no hepatosplenomegaly or mass excellent appetite Skin shows nonhealing leg ulcer lift she in approximately 2 cm some redness around it but is scheduled to be evaluated on outpatient basis Psychiatrically patient seems to be in very good mood and very alert and clear Neurology shows patient to be symmetrical slight decrease in distal fine touch cranial nerves clear Objective Labs Result Diagrams: 05/28/19 11:30 05/30/19 04:43 Labs: Laboratory Results - last 24 hr 05/30/19 04:43 Sodium 137 Potassium 4.2 Chloride 105 Carbon Dioxide 22 BUN 45 H Creatinine 1.70 H Estimated GFR 28.6 L BUN/Creatinine Ratio 26.5 H Glucose 331 H Calcium 9.3 Assessment & Plan Assessment & Plan narrative: Assessment 1. Chest pain patient presented to emergency room with a chest pain that resolved. Initial enzymes negative cardiology evaluation with echo and scheduled treadmill for tomorrow. Will keep her on current blood pressure medications unless increases in which case we might consider adding amlodipine. Assessment 2. Type 2 diabetes on high protocol insulin sliding scale and Lantus. Not good control through the day today with sugars as high as 300. Have instituted routine AC Humalog before breakfast and dinner with sliding scale in between and increase Lantus to 20 at night. Assessment 3. Renal insufficiency. Creatinine 1.7 which is stable. Probably playing a role in her chronic anemia. Labs for morning Assessment 4. Hypothyroidism. Continue with current medication Assessment 5. Anemia think this probably secondary to chronic renal insufficiency no evidence of bleeding will recheck labs for morning. Assessment 6. Nonhealing leg ulcer anterior left lechuga. Some redness but fairly mild per fairly firm eschar over that could be purulence underneath but does not look like major abscess at this point. Plan outpatient wound care management. Assessment 7. History of atrial fibrillation will continue to monitor
[2019-05-30] MEDS: ROSUVASTATIN 10 MG TABLET 5 MG PO (21:33)
--- NOTE | 2019-05-30 22:15 | PC.NURSE ---
Patient has had consistently high blood pressures and blood sugars throughout the shift. Patients atenolol was held this morning due to heart rate being below 60. The student nurse and primary nurse gave the atenolol at 1715. Patient is tolerating nitroglycerin well, as she has had no complaints of chest pain or headaches. Her blood pressures are running 180s over 80s and her sugars have been running in the upper 200s. Her long acting insulin has now been increased to compensate. Patient is NPO after 5am for a scheduled stress test in the morning and is expected to discharge after the test.
[2019-05-31] VITALS (7 sets, daily range): BP systolic 155–185; BP diastolic 67–123; PULSE 55–57; RESP 16; TEMP 36.7–36.8; O2SAT 94–96
[2019-05-31] MEDS: NITROGLYCERIN OINT 1 INCH/GM OINT...G. TOP ×2 (03:50→09:10)
[2019-05-31] MEDS: LEVOTHYROXINE 125 MCG TABLET PO (04:52)
[2019-05-31 05:07] LABS: Add Manual Diff / Slide Review NO; Basophils Absolute Auto 100 /uL (0-100); Basophils Percent Auto 1.3 % (0-2); Eosinophils Absolute Auto 200 /uL (0-450); Eosinophils Percent Auto 2.2 % (2-4); Hematocrit 32.8 % (36-46); Lymphocytes Absolute Auto 2200 /uL (1100-4500); Mean Corpuscular HGB Conc 33.5 % (30-36); Mean Corpuscular Hemoglobin 29.2 PG (26-34); Mean Corpuscular Volume 87.3 fL (80-100); Monocytes Absolute Auto 1000 /uL (0-900); Monocytes Percent Auto 8.9 % (3-14); Neutrophils Absolute Auto 7100 /uL (1500-7000); Neutrophils Percent Auto 66.6 % (50-75); Platelet Count 203 X10^3/uL (150-400); Red Blood Cell Count 3.76 X10^6/uL (4.0-5.2); Red Cell Distribution Width 15.5 % (11.6-14.8); White Blood Cell Count 10.6 X10^3/uL (4.5-11.0)
[2019-05-31 05:15] LABS: Alanine Aminotransferase 16 IU/L (<35); Albumin 3.5 g/dL (3.5-5.0); Albumin Globulin Ratio 1.1 (1.0-2.8); Alkaline Phosphatase 67 U/L (38-126); Aspartate Aminotransferase 22 IU/L (14-36); BUN Creatinine Ratio 27.6 (6-22); Bilirubin Total 0.4 mg/dL (0.2-1.3); Blood Urea Nitrogen 47 mg/dL (7-17); Calcium 9.3 mg/dL (8.4-10.2); Carbon Dioxide 25 mmol/L (22-32); Chloride 106 mmol/L (98-107); Estimated Glomerular Filt Rate 28.6 mL/min (>60); Globulin 3.1 g/dL (1.7-4.1); Glucose 309 mg/dL (80-110); HEMOLYSIS < 15 (0-50); Potassium 4.2 mmol/L (3.4-5.1); Sodium 136 mmol/L (137-145); Total Protein 6.6 g/dL (6.3-8.2)
[2019-05-31 05:24] LABS: NT-proBNP (BNP-Adult 18+) 824 pg/mL (<450)
[2019-05-31] MEDS: HYDRALAZINE 20 MG/ML VIAL 10 MG IV (08:02)
--- NOTE | 2019-05-31 08:15 | PM.PN.1 ---
Subjective Subjective Date Patient Seen: 05/31/19 Time Patient Seen: 08:15 Interval history: Patient feeling overall pretty well this morning. No further chest pain. Still having issues with her blood pressure. Been very difficult to control. Energy level has been okay. Has been ambulating some. No other significant change or complaint. Exam Vital Signs (past 8 hours): - 05/31/19 01:16 05/31/19 03:50 05/31/19 03:58 Temperature 98.0 F 98.1 F Pulse Rate 55 L 55 L 56 L Respiratory Rate 16 16 Blood Pressure 184/78 H 171/67 H 171/67 H Pulse Oximetry 95 94 05/31/19 08:02 Temperature Pulse Rate Respiratory Rate Blood Pressure 185/75 H Pulse Oximetry Oxygen Delivery Method Room Air Oxygen Flow Rate 0 Narrative Exam Narrative: Alert smiling elderly female sitting in bed no acute distress Lungs are clear. Heart regular rate and rhythm. Abdomen is soft positive bowel sounds nontender extremities is unchanged lesion lateral leg. No significant edema. No other change. Psychologically alert appropriate Objective Labs Result Diagrams: 05/31/19 04:50 05/31/19 04:50 Labs: Laboratory Results - last 24 hr 05/31/19 05/31/19 04:50 04:50 WBC 10.6 RBC 3.76 L Hgb 11.0 L Hct 32.8 L MCV 87.3 MCH 29.2 MCHC 33.5 RDW 15.5 H Plt Count 203 Neut % (Auto) 66.6 Lymph % (Auto) 21.0 L [place] % (Auto) 8.9 Eos % (Auto) 2.2 Baso % (Auto) 1.3 Neut # (Auto) 7100 H Lymph # (Auto) 2200 [place] # (Auto) 1000 H Eos # (Auto) 200 Baso # (Auto) 100 Sodium 136 L Potassium 4.2 Chloride 106 Carbon Dioxide 25 BUN 47 H Creatinine 1.70 H Estimated GFR 28.6 L BUN/Creatinine Ratio 27.6 H Glucose 309 H Calcium 9.3 Total Bilirubin 0.4 AST 22 ALT 16 Alkaline Phosphatase 67 NT-Pro-B Natriuret Pep 824 H Total Protein 6.6 Albumin 3.5 Globulin 3.1 Albumin/Globulin Ratio 1.1 Assessment & Plan Assessment & Plan narrative: Chest pain. Patient still has not been evaluated. Treadmill today. Hopefully we can clear this issue up. Not sure patient would not want intervention depending on what recommendation was but will see how things go. Need to establish before discharge. Hypertension poorly controlled. Will increase Norvasc and place on b.i.d. hydralazine and hopefully we can get this in control. Certainly can't go home with 180 blood pressure systolic which is what she was this morning. Patient will be given a as needed hydralazine and then started on consistent medication. Can't really increase atenolol due to the fact that her pulses been decreased. We will see how things go. Hopefully that will work. Renal insufficiency. Stable. Will follow. Hypothyroidism. No change. Nonhealing ulcer. Will have wound care follow as outpatient. History of atrial fibrillation. Stable. Currently not active. Will follow up with whipper. DVT prophylaxis on treatment. Disposition. Hopefully discharged today. Time Spent With Patient Time with patient: 25 - 35 minutes
[2019-05-31] MEDS: INSULIN GLARGINE 100 UNIT/ML 3ML PEN 20 UNIT SUBCUT (08:59)
[2019-05-31] MEDS: INSULIN ASPART 100 UNIT/ML INSULN PEN SUBCUT ×2 (09:00→13:15)
[2019-05-31] MEDS: INSULIN ASPART 100 UNIT/ML INSULN PEN 10 UNIT SUBCUT (09:01)
[2019-05-31] MEDS: EZETIMIBE 10 MG TABLET PO (09:05)
[2019-05-31] MEDS: ASPIRIN EC 81 MG TABLET PO (09:05)
[2019-05-31] MEDS: CHLORTHALIDONE 25 MG TABLET PO (09:05)
[2019-05-31] MEDS: RIVAROXABAN 10 MG TABLET 15 MG PO (09:05)
[2019-05-31] MEDS: predniSONE 1 MG TABLET 4 MG PO (09:06)
[2019-05-31] MEDS: SODIUM CHLORIDE 0.9% FLUSH 10 ML IV (09:06)
[2019-05-31] MEDS: predniSONE 5 MG TABLET PO (09:06)
[2019-05-31] MEDS: HYDRALAZINE 25 MG TABLET PO (09:18)
[2019-05-31] MEDS: AMLODIPINE 5 MG TABLET 10 MG PO (09:19)
--- NOTE | 2019-05-31 11:56 | PM.TREADMILL ---
Cardiac Stress Test Report Referral & Results Date Patient Seen: 05/31/19 Time Patient Seen: 11:56 Requesting provider: Benigno Mahan Indication: chest pain Rest ECG: sinus rhythm with T wave inversion in inferior and lateral leads Procedure Note: Standard juan protocol, 5:50, 5.9 METS Very good exercise capacity, LAUREL -32% Normal hemodynamic response to exercise No chest pain or anginal symptoms Resting ECG sinus rhythm with T wave inversion in inferior and lateral leads with no siginificant change with exercise, no ectopy Impression: non conclusive exercise stress test. Nuclear images pending. Please note: Actual ECG tracings can be found in the PACS system.
--- NOTE | 2019-05-31 12:32 | PC.NURSE ---
0740- Awoke pt for VS/assessment and to prepare for 1st part of stress test. Pt AO x3. Noted leaking IV and elevated BP. Dr. Hawley on rounds. Instructed to give hydralazine IV PRN per order prior to transfer to DI. Placed new IV site and administered per order. Pt returned and was able to eat a piece of toast. Pt declined total amount of insulin ordered. She accepted 6 units of subcut novolog as well as lantus. Administered AM meds with good effect. Pt was taken back to DI at 11 for second part of stress test. Will monitor.
[2019-05-31] MEDS: atenoloL 25 MG TABLET PO (13:21)
--- NOTE | 2019-05-31 15:06 | PC.NURSE ---
Pt d/c'd to home at 1306. Pt is AO x3 and in NAD. D/c education and written instruction provided. Reviewed with pt. Pt verbalized understanding and states she has no further questions. All belongings are gathered and sent with pt for d/c home. Escorted to [facility] by CUSTOMER MANAGEMENT SPECIALIST in no acute distress.
--- NOTE | 2019-06-18 13:27 | P.DS_ITS ---
History of Present Illness History of Present Illness Date Patient Seen: 05/31/19 Time Patient Seen: 08:20 Chief complaint: CHEST PAINS Narrative: Patient is 83-year-old female well known to me with multiple medical problems but no active coronary artery disease who presents with chest pain. patient woke up today was not feeling well. Was moving some furniture around and just did not feel well which she has a hard time explaining but just felt somewhat weak. She began having chest pain substernal 3 to 07/25 radiation maybe to her neck and her tongue maybe slightly to her back. She had no diaphoresis but felt maybe slightly short of breath. She felt like maybe it lasted 20 minutes. Nothing said no really make it better or worse. At this point she decided she would go to the emergency room. By the time she got to the emergency room her pain was resolved. She was markedly hypertensive at that time. She was given an inch of nitropaste and remained pain-free. Since she has been on the floor she had a little bit of chest pain nothing like she had this morning and it resolved very quickly. Original EKG showed no significant change 2nd EKG showed maybe some ST inversions maybe some slightest he had depression but no other changes. Patient has otherwise been feeling well. Has no major change recently. And has feeling like things are going well. Patient has history of diabetes, hypertension, does not smoke. Does occasionally drink. Does have elevated lipids and has difficulty with statins. She has no other significant new change. She has not had any headaches visual symptoms nausea vomiting or diarrhea no urinary changes. No fevers or chills. No headaches or other changes. 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 Mother age 80 for alcohol heart disease Sibling asthma heart disease depression hyperlipidemia Social history retired, on no smoking, likes her scotch at night. Discharge Providers Provider Date of admission: 05/28/19 13:56 Discharge Date: 05/31/19 Primary care physician: Benigno Mahan MD Consults: 05/29/19 08:48 Consult to Physician Routine Comment: Consulting Provider: Bere Crum Reason for consultation: chest pain and blood pressure control Has provider been notified: Yes Discharge provider: Benigno Mahan MD Summary Hospital Course Discharge Diagnosis: Chest pain. Noncardiac. Hypertension crisis Renal insufficiency Nonhealing ulcer left leg History of atrial fibrillation Hospital Course: Chest pain. Noncardiac. Patient was admitted to the hospital enzymes were negative but patient had change which showed T-wave inversions laterally. She had persistent discomfort and nitroglycerin was placed. She did not have any significant other changes but very concerning for possible unstable angina. Ruled out for myocardial infarction. Dr. maria victoria cuellar was consulted and recommended cardiac evaluation through nucleolar medicine treadmill. That was d one on the day of discharge was found to be negative low risk scan and patient was discharged to home. Was followed as an outpatient with close follow-up. Hypertension with crisis. Probably the reason for presentation. Patient had significantly elevated blood pressure was not responding. She was initially placed on her usual medicine plus nitropaste and really was not improving. Due to the fact it was unclear what her issues were and her vital signs that we were dealing with hydralazine was added. Seemed to have better improvement after discussion with Dr. maria victoria cuellar nitropaste was discontinued and amlodipine was started. Her blood pressure is actually were down but not where we wanted them on discharge she will be following very closely as outpatient. Type 2 diabetes stable throughout course will continue her usual medicine. Certainly was higher than she usually is usually has moderately good control but will be followed as outpatient suspect will resolve and improved on its own. Nonhealing leg ulcer. Patient probably needs debridement. Will refer to wound care after discharge. Renal insufficiency. Was not worsened or changed. We be followed as an outpatient. Hypothyroidism. Will continued on her usual medicine without change. Exam Vital Signs (past 8 hours): Oxygen Delivery Method Room Air Oxygen Flow Rate 0 Narrative Exam Narrative: Alert elderly female in no acute distress. Mucous membranes are moist. Eyes are unremarkable. Neck supple without adenopathy. Lungs are clear. Heart regular rate and rhythm. Abdomen is soft positive bowel sounds nontender. Extremities without cyanosis clubbing edema. Left leg shows constant leg ulcer on the lateral surface 3 cm. Trace edema. Neurologic exam is unremarkable. Otherwise no change Objective Labs Result Diagrams: 05/31/19 04:50 05/31/19 04:50 Discharge Plan Discharge Plan Patient Disposition: Home Discharge orders & Medications Prescriptions: New hydralazine 25 mg Tablet 25 mg PO BIDWM Qty: 60 RF: 2 amlodipine [Norvasc] 5 mg Tablet 10 mg PO DAILY Qty: 30 RF: 2 rosuvastatin 10 mg Tablet 5 mg PO BEDTIME Qty: 30 RF: 0 Continued Lantus U-100 Insulin 100 UNIT/1 ML solution 20 unit SQ QAM Qty: 0 RF: 0 ezetimibe [Zetia] 10 MG tablet 10 mg PO DAILY Qty: 0 RF: 0 insulin lispro [Humalog U-100 Insulin] 100 UNIT/1 ML solution 10 - 15 u SQ QID PRN (Reason: sliding scale) Qty: 0 RF: 0 prednisone 5 mg tablet 5 mg PO DAILY RF: 0 allopurinol 100 mg tablet 100 mg PO QPM RF: 0 levothyroxine 125 mcg tablet 125 mcg PO DAILY RF: 0 rivaroxaban 15 mg tablet 15 mg PO DAILY RF: 0 meclizine 12.5 mg Tablet 12.5 - 25 mg PO BEDTIME PRN (Reason: Dizziness) RF: 0 colchicine [Colcrys] 0.6 mg Tablet See Rx Instructions .ROUTE .COMPLEX MDD 3 tab PRN (Reason: Gout) RF: 0 atenolol 25 mg tablet 25 mg PO BID RF: 0 chlorthalidone 25 mg tablet 25 mg PO DAILY RF: 0 prednisone 1 mg tablet 4 mg PO DAILY RF: 0 acetaminophen 325 mg Tablet 325 mg PO PRN PRN (Reason: pain) RF: 0 Lantus Solostar U-100 Insulin 100 unit/mL (3 mL) insulin pen 16 unit SUBCUT QPM RF: 0 No Action (DME) FreeStyle Thomas 14 Day Sensor Kit MISCELLANEOUS RF: 0 Follow up/Referrals: Benigno Mahan MD [Primary Care Provider] - 06/04/19 (please call for the appointment) Discharge Health Status Care Plan Goals: blood pressure control Multidrug resistant organism: No MDRO Diet/Activity/Treatments Diet: Carb-consistent/Diabetic Activity: as tolerated Skin/Wound/Dressing Care Report to your healthcare provider any signs of infection, such as:: chills, fever, night sweats, increased pain, unusual drainage and unusual redness Visit Report/Discharge Packet Instructions: Hydralazine (By mouth), Amlodipine (By mouth), Rosuvastatin (By mouth) Discharge Data Primary Care Provider: Benigno Mahan Attending Provider: Benigno Mahan Admit Date/Time: 05/28/19 13:56 Discharges patient from system. Discharge Date/Time: 05/31/19 13:06
== END 2019-05-31 13:06 | disposition home or self-care (01) ==
LOC: ED 13:40 → AC 13:57 → ICU 16:11
PROVIDERS: Emergency Medicine; Family Medicine; Admitting Provider Family Medicine; Emergency Provider Nurse Practitioner Family; PCP Family Medicine; Referring Provider Nurse Practitioner Family; Visit Provider Family Medicine
DX: R07.9 Chest pain, unspecified (principal); I48.91 Unspecified atrial fibrillation; E78.5 Hyperlipidemia, unspecified; I16.0 Hypertensive urgency; E11.3299 Type 2 diabetes mellitus with mild nonproliferative diabetic retinopathy without macular edema, unspecified eye; Z79.4 Long term (current) use of insulin; E03.9 Hypothyroidism, unspecified; N28.9 Disorder of kidney and ureter, unspecified; L97.829 Non-pressure chronic ulcer of other part of left lower leg with unspecified severity; D64.9 Anemia, unspecified
CPT/HCPCS: 36415; 71045; 78452; 80048; 80053; 82550; 82962; 83690; 83735; 83880; 84484; 85025; 85610; 85730; 93005; 93017; 93306; 96372; 96374; 96376; 99284; G0378; A9502; J0360

== ENCOUNTER → 2019-06-12 13:24 | Outpatient (CLI) | payer MEDICARE, OTHER, SELFPAY ==
[2019-05-28 16:09] VITALS: BMI 26.7
== END ==
PROVIDERS: PCP Family Medicine; Referring Provider Family Medicine; Visit Provider Family Medicine
DX: I87.2 Venous insufficiency (chronic) (peripheral) (principal); L97.821 Non-pressure chronic ulcer of other part of left lower leg limited to breakdown of skin; L08.9 Local infection of the skin and subcutaneous tissue, unspecified; I73.9 Peripheral vascular disease, unspecified; R60.0 Localized edema; Z79.4 Long term (current) use of insulin
CPT/HCPCS: 11042; 87070; 87075; 87205; 99214

== ENCOUNTER → 2019-06-14 08:46 | Outpatient (CLI) | payer MEDICARE, OTHER, SELFPAY ==
[2019-05-28 16:09] VITALS: BMI 26.7
== END ==
PROVIDERS: PCP Family Medicine; Referring Provider Family Medicine; Visit Provider Family Medicine
DX: I87.2 Venous insufficiency (chronic) (peripheral) (principal); L97.821 Non-pressure chronic ulcer of other part of left lower leg limited to breakdown of skin; R60.0 Localized edema
CPT/HCPCS: 97605

== ENCOUNTER → 2019-06-17 08:46 | Outpatient (CLI) | payer MEDICARE, OTHER, SELFPAY ==
[2019-05-28 16:09] VITALS: BMI 26.7
== END ==
PROVIDERS: PCP Family Medicine; Referring Provider Family Medicine; Visit Provider Family Medicine
DX: I87.2 Venous insufficiency (chronic) (peripheral) (principal); L97.821 Non-pressure chronic ulcer of other part of left lower leg limited to breakdown of skin
CPT/HCPCS: 97607

== ENCOUNTER → 2019-06-20 14:29 | Outpatient (CLI) | payer MEDICARE, OTHER, SELFPAY ==
[2019-05-28 16:09] VITALS: BMI 26.7
== END ==
PROVIDERS: PCP Family Medicine; Referring Provider Family Medicine; Visit Provider Family Medicine
DX: I87.2 Venous insufficiency (chronic) (peripheral) (principal); E11.622 Type 2 diabetes mellitus with other skin ulcer; L97.825 Non-pressure chronic ulcer of other part of left lower leg with muscle involvement without evidence of necrosis; I73.9 Peripheral vascular disease, unspecified
CPT/HCPCS: 97607; 99213

== ENCOUNTER → 2019-06-24 09:50 | Outpatient (CLI) | payer MEDICARE, OTHER, SELFPAY ==
[2019-05-28 16:09] VITALS: BMI 26.7
== END ==
PROVIDERS: PCP Family Medicine; Referring Provider Family Medicine; Visit Provider Family Medicine
DX: L59.9 Disorder of the skin and subcutaneous tissue related to radiation, unspecified (principal); S81.801A Unspecified open wound, right lower leg, initial encounter
CPT/HCPCS: 97607

== ENCOUNTER → 2019-06-27 12:58 | Outpatient (CLI) | payer MEDICARE, OTHER, SELFPAY ==
[2019-05-28 16:09] VITALS: BMI 26.7
== END ==
PROVIDERS: PCP Family Medicine; Referring Provider Family Medicine; Visit Provider Family Medicine
DX: I87.2 Venous insufficiency (chronic) (peripheral) (principal); E11.622 Type 2 diabetes mellitus with other skin ulcer; L97.822 Non-pressure chronic ulcer of other part of left lower leg with fat layer exposed; I73.9 Peripheral vascular disease, unspecified; R60.0 Localized edema; Z79.4 Long term (current) use of insulin
CPT/HCPCS: 11042; 97605

== ENCOUNTER → 2019-07-01 08:55 | Outpatient (CLI) | payer MEDICARE, OTHER, SELFPAY ==
[2019-05-28 16:09] VITALS: BMI 26.7
== END ==
PROVIDERS: PCP Family Medicine; Referring Provider Family Medicine; Visit Provider Family Medicine
DX: I87.2 Venous insufficiency (chronic) (peripheral) (principal); L97.822 Non-pressure chronic ulcer of other part of left lower leg with fat layer exposed; R60.0 Localized edema
CPT/HCPCS: 97605

== ENCOUNTER → 2019-07-18 08:34 | Outpatient (CLI) | payer MEDICARE, OTHER, SELFPAY ==
[2019-05-28 16:09] VITALS: BMI 26.7
== END ==
PROVIDERS: PCP Family Medicine; Referring Provider Family Medicine; Visit Provider Family Medicine
DX: I87.2 Venous insufficiency (chronic) (peripheral) (principal); E11.622 Type 2 diabetes mellitus with other skin ulcer; L97.822 Non-pressure chronic ulcer of other part of left lower leg with fat layer exposed; I73.9 Peripheral vascular disease, unspecified; Z79.4 Long term (current) use of insulin
CPT/HCPCS: 11042; 97605

== ENCOUNTER → 2019-07-25 09:59 | Outpatient (CLI) | payer MEDICARE, OTHER, SELFPAY ==
[2019-05-28 16:09] VITALS: BMI 26.7
== END ==
PROVIDERS: PCP Family Medicine; Referring Provider Family Medicine; Visit Provider Family Medicine
DX: I87.2 Venous insufficiency (chronic) (peripheral) (principal); E11.622 Type 2 diabetes mellitus with other skin ulcer; L97.821 Non-pressure chronic ulcer of other part of left lower leg limited to breakdown of skin; I73.9 Peripheral vascular disease, unspecified; Z79.4 Long term (current) use of insulin
CPT/HCPCS: 11042; 97605

== ENCOUNTER → 2019-08-01 16:21 | Outpatient (CLI) | payer MEDICARE, OTHER, SELFPAY ==
[2019-05-28 16:09] VITALS: BMI 26.7
== END ==
PROVIDERS: PCP Family Medicine; Referring Provider Family Medicine; Visit Provider Family Medicine
DX: I87.2 Venous insufficiency (chronic) (peripheral) (principal); E11.622 Type 2 diabetes mellitus with other skin ulcer; L97.821 Non-pressure chronic ulcer of other part of left lower leg limited to breakdown of skin; I73.9 Peripheral vascular disease, unspecified; R60.0 Localized edema
CPT/HCPCS: 97597

== ENCOUNTER → 2019-08-08 11:15 | Outpatient (CLI) | payer MEDICARE, OTHER, SELFPAY ==
[2019-05-28 16:09] VITALS: BMI 26.7
== END ==
PROVIDERS: PCP Family Medicine; Referring Provider Family Medicine; Visit Provider Family Medicine
DX: I87.2 Venous insufficiency (chronic) (peripheral) (principal); L97.821 Non-pressure chronic ulcer of other part of left lower leg limited to breakdown of skin; R60.0 Localized edema; Z79.4 Long term (current) use of insulin
CPT/HCPCS: 97597; 99212

== ENCOUNTER → 2019-08-15 15:38 | Outpatient (CLI) | payer MEDICARE, OTHER, SELFPAY ==
[2019-05-28 16:09] VITALS: BMI 26.7
== END ==
PROVIDERS: PCP Family Medicine; Referring Provider Family Medicine; Visit Provider Family Medicine
DX: I87.2 Venous insufficiency (chronic) (peripheral) (principal); E11.622 Type 2 diabetes mellitus with other skin ulcer; I73.9 Peripheral vascular disease, unspecified; Z79.4 Long term (current) use of insulin
CPT/HCPCS: 99212; 99213

== ENCOUNTER 2019-10-25 15:21 | Emergency (ER) | payer MEDICARE, OTHER, SELFPAY ==
[2019-05-28 16:09] VITALS: BMI 26.7
[2019-10-25 15:34] VITALS: BP 198/86; PULSE 54; RESP 16; O2SAT 97; BMI 27.6
--- NOTE | 2019-10-25 15:39 | DI.RAD.S_ITS ---
PROCEDURE: XR ANKLE RT MIN 3V INDICATIONS: right ankle pain and swelling TECHNIQUE: 3 views of the ankle were acquired. COMPARISON: None. FINDINGS: Bones: Minimally displaced fractures are evident involving the shafts of the 4th and 5th metatarsals. No involvement of the joint is evident. No additional fractures are appreciated. However, given the degree of decreased bone mineralization, the possibility of subtle fractures are difficult to exclude. The alignment of the ankle mortise is well-maintained. No fractures of the tibiotalar joint are appreciated. Plantar and Achilles spurs involving the calcaneus are present. Mild to moderate degenerative changes of the hindfoot joints are noted. Soft tissues: Soft tissue swelling about the ankle and the forefoot is present. Arterial atherosclerotic calcifications are noted involving the imaged right lower leg. There are additional non-linear rounded areas of subcutaneous calcifications evident involving the right lower leg that most often is seen in the setting of chronic venous stasis. Previous trauma may also result in this appearance. No unexpected radiopaque foreign bodies are evident. IMPRESSION: 1. Minimally displaced left 4th and 5th metatarsal fractures. 2. No midfoot or hindfoot fractures are appreciated. 3. Mild to moderate degenerative changes of the hindfoot joints. 4. Soft tissue swelling of the right foot and ankle. Dictated by: Gómez Nunez M.D. on 10/25/2019 at 15:03 Approved by: Gómez Nunez M.D. on 10/25/2019 at 15:06
--- NOTE | 2019-10-25 15:53 | DI.RAD.S_ITS ---
PROCEDURE: XR HIP W PEL IF DONE RT 2V INDICATIONS: fall with pain TECHNIQUE: AP pelvis with lateral view(s) of the right hip(s). COMPARISON: None. FINDINGS: Bones: No distress fracture or dislocation of the right hip is evident. There are moderate degenerative changes of the right hip. There also are moderate to severe degenerative changes evident involving the other pelvic joints. No displaced pelvic fractures are appreciated. Soft tissues: The visualized bowel gas pattern is normal. No suspicious soft tissue calcifications. IMPRESSION: Moderate degenerative changes of the right hip without acute fracture. Dictated by: Gómez Nunez M.D. on 10/25/2019 at 15:15 Approved by: Gómez Nunez M.D. on 10/25/2019 at 15:15
--- NOTE | 2019-10-25 15:55 | ED.LOWEXIN ---
HPI - Extremity Injury (Lower) General Chief Complaint: Extremity Injury, Lower Stated Complaint: fall twisted her right foot, thinks broke somethin Time Seen by Provider: 10/25/19 15:26 Source: patient Mode of arrival: Wheelchair Limitations: physical limitation History of Present Illness HPI Narrative: 84-year-old female nonsmoker with history of hypertension and gout presents with a chief complaint right foot and hip pain after a ground level, accidental fall just prior to. She had been sitting on her couch when she jumped up to answer the phone and her right foot bent underweight she fell and now has pain. Initially she complained only of right forefoot pain but as time worse on her right hip is hurting as well. She denies any head neck or back pain. She denies any chest pain or shortness of breath and is otherwise well and free of complaint. MD complaint: hip injury and foot injury Onset (ago): minute(s) Type of Injury: inversion Place: home Severity: moderate Relieving factors: nothing Exacerbating factors: weight bearing, movement and palpation Context: fall Other symptoms: none Related Data Home Medications Medication Instructions Recorded Confirmed Lantus U-100 Insulin 20 unit SQ QAM #0 10/16/12 05/28/19 ezetimibe [Zetia] 10 mg PO DAILY #0 10/16/12 05/28/19 insulin lispro [Humalog U-100 10 - 15 u SQ QID PRN #0 05/31/16 05/28/19 Insulin] atenolol 25 mg PO BID 01/25/18 05/28/19 chlorthalidone 25 mg PO DAILY 01/25/18 05/28/19 allopurinol 100 mg PO QPM 08/08/18 05/28/19 levothyroxine 125 mcg PO DAILY 08/08/18 05/28/19 prednisone 5 mg PO DAILY 08/08/18 05/28/19 rivaroxaban 15 mg PO DAILY 08/08/18 05/28/19 colchicine [Colcrys] See Rx Instructions .ROUTE 01/28/19 05/28/19 .COMPLEX PRN MDD 3 tab meclizine 12.5 - 25 mg PO BEDTIME PRN 01/28/19 05/28/19 Lantus Solostar U-100 Insulin 16 unit SUBCUT QPM 05/28/19 05/28/19 acetaminophen 325 mg PO PRN PRN 05/28/19 05/28/19 flash glucose sensor [FreeStyle 05/28/19 05/28/19 Thomas 14 Day Sensor] prednisone 4 mg PO DAILY 05/28/19 05/28/19 Previous Rx's Medication Instructions Recorded amlodipine [Norvasc] 10 mg PO DAILY #30 tab 05/31/19 hydralazine 25 mg PO BIDWM #60 tab 05/31/19 rosuvastatin 5 mg PO BEDTIME #30 tab 05/31/19 Allergies Allergy/AdvReac Type Severity Reaction Status Date / Time kiwi Allergy Severe ANAPHYLAXIS Verified 05/28/19 11:19 Sulfa (Sulfonamide Allergy Severe unknown Verified 01/30/19 10:23 Antibiotics) meperidine AdvReac Severe I GO NUTS Verified 01/30/19 10:23 morphine AdvReac Severe DIZZY Verified 01/30/19 10:23 Review of Systems Constitutional Constitutional: Denies chills, Denies fatigue, Denies fever(s), Denies frequent falls, Denies lethargy and Denies weakness Eyes Eyes: Denies change in vision, Denies eye discharge, Denies irritation and Denies loss of vision ENT Ears, Nose, Mouth, and Throat: Denies change in voice, Denies dizziness, Denies neck pain, Denies sore throat and Denies throat swelling Cardiovascular Cardiovascular: Denies chest pain, Denies irregular heart rhythm, Denies lightheadedness, Denies palpitations, Denies dyspnea, Denies dyspnea on exertion and Denies orthopnea Respiratory Respiratory: Denies cough, Denies dyspnea, Denies dyspnea on exertion and Denies wheezing Gastrointestinal Gastrointestinal: Denies abdominal pain, Denies change in bowel habits, Denies diarrhea, Denies nausea and Denies vomiting Musculoskeletal Musculoskeletal: Reports arthralgias, Denies neck pain and Denies numbness Integumentary/Breasts Skin/Breast: Denies pruritus, Denies erythema, Denies rash and Denies wounds Neurologic Neurologic: Denies behavioral changes, Denies confusion, Denies dizziness, Denies frequent falls, Denies loss of vision, Denies numbness and Denies weakness Psychiatric Psychiatric: Denies anxiety, Denies behavioral changes, Denies confusion, Denies depression, Denies homicidal ideation and Denies suicidal ideation Endocrine Endocrine: Denies fatigue, Denies flushing and Denies palpitations Hematologic/Lymphatic Hematologic/Lymphatic: Denies easy bruising Allergic/Immunologic Allergic/Immunologic: Denies urticaria, Denies throat swelling and Denies wheezing Patient History Medical History HTN (hypertension) (Inactive) HTN (hypertension) (Acute) Hypoglycemia (Inactive) Palpitations (Acute) Paroxysmal atrial fibrillation (Inactive) SOB (shortness of breath) (Inactive) Surgical History No pertinent past surgical history (Acute) Social History household members: none Smoking Status: Never smoker alcohol intake: current Smoking Status: Never smoker alcohol intake frequency: 0-2 drinks per day Alcohol type: hard liquor Substance Use Type: does not use Exam Narrative Exam Narrative: GEN: AOx3 and in mild distress, GCS 15 EYES: Pupils are equal, round, and reactive to light and accommodation. Extraoccular muscles are intact bilaterally. There is no subconjunctival hemorrhage or exudate. CHEST: Lungs are clear to auscultation bilaterally and free of wheezes, rales, or rhonchi. Heart rate is regular rhythm, there are no murmurs, clicks, rubs, or gallops. There is no chest wall tenderness. ABD: Abdomen is soft and nontender. There is no guarding or rebound. Bowel sounds are normal in all 4 quadrants. There is no mass or organomegaly. EXT: Full but painful ROM of right forefoot, tender to palpation. Closed, and N/V in tact. SKIN: Warm, pink, and dry. No erythema or rash Initial Vital Signs Initial Vital Signs: Vital Signs Pulse Rate 54 L 10/25/19 15:34 Respiratory Rate 16 10/25/19 15:34 Blood Pressure 198/86 H 10/25/19 15:34 Pulse Oximetry 97 10/25/19 15:34 Procedures Orthopedic Splinting/Casting Injury #1: Side: right Lower Extremity Injury Location: foot Lower Extremity Immobilizer: post-op shoe Course Orders Ordered: ED Orders 10/25/19 15:39 XR ankle RT min 3V Stat 10/25/19 15:53 XR hip w pel if done RT 2V Stat Vital Signs Vital signs: Vital Signs - 8 hr 10/25/19 15:34 Pulse Rate 54 L Respiratory Rate 16 Blood Pressure 198/86 H Pulse Oximetry 97 Discharge Plan Departure Patient Disposition: Home Clinical Impression: Foot fracture, right Qualifiers: Encounter type: initial encounter Fracture type: closed Qualified Code(s): S92.901A - Unspecified fracture of right foot, initial encounter for closed fracture Discharge Date/Time: 10/25/19 16:43 Instructions: DI for Foot Fracture Activity Restrictions/Additional Instructions: *You have been diagnosed with [mildly displaced fractures of 4th and 5th metatarsals of the right foot] *What to do: *Take medications as directed *Follow up with your primary care provider in 2-3 days, call for an appointment. Let them know you were seen in the Emergency Department and that we ask that you be seen in follow up *Return to ER if you should have any new, worsening or concerning symptoms Prescriptions: No Action Lantus U-100 Insulin 100 UNIT/1 ML solution 20 unit SQ QAM Qty: 0 RF: 0 ezetimibe [Zetia] 10 MG tablet 10 mg PO DAILY Qty: 0 RF: 0 insulin lispro [Humalog U-100 Insulin] 100 UNIT/1 ML solution 10 - 15 u SQ QID PRN (Reason: sliding scale) Qty: 0 RF: 0 prednisone 5 mg tablet 5 mg PO DAILY RF: 0 allopurinol 100 mg tablet 100 mg PO QPM RF: 0 levothyroxine 125 mcg tablet 125 mcg PO DAILY RF: 0 rivaroxaban 15 mg tablet 15 mg PO DAILY RF: 0 meclizine 12.5 mg Tablet 12.5 - 25 mg PO BEDTIME PRN (Reason: Dizziness) RF: 0 colchicine [Colcrys] 0.6 mg Tablet See Rx Instructions .ROUTE .COMPLEX MDD 3 tab PRN (Reason: Gout) RF: 0 atenolol 25 mg tablet 25 mg PO BID RF: 0 chlorthalidone 25 mg tablet 25 mg PO DAILY RF: 0 prednisone 1 mg tablet 4 mg PO DAILY RF: 0 (DME) FreeStyle Thomas 14 Day Sensor Kit MISCELLANEOUS RF: 0 acetaminophen 325 mg Tablet 325 mg PO PRN PRN (Reason: pain) RF: 0 Lantus Solostar U-100 Insulin 100 unit/mL (3 mL) insulin pen 16 unit SUBCUT QPM RF: 0 hydralazine 25 mg Tablet 25 mg PO BIDWM Qty: 60 RF: 2 amlodipine [Norvasc] 5 mg Tablet 10 mg PO DAILY Qty: 30 RF: 2 rosuvastatin 10 mg Tablet 5 mg PO BEDTIME Qty: 30 RF: 0 Referrals: Benigno Mahan MD [Primary Care Provider] -
== END 2019-10-25 16:43 | disposition home or self-care (01) ==
PROVIDERS: Emergency Provider Emergency Medicine; PCP Family Medicine
DX: S92.901A Unspecified fracture of right foot, initial encounter for closed fracture (principal); M25.551 Pain in right hip; W19.XXXA Unspecified fall, initial encounter
CPT/HCPCS: 73502; 73610; 99283

== ENCOUNTER → 2020-01-30 10:50 | Outpatient (CLI) | payer MEDICARE, OTHER, SELFPAY ==
[2019-05-28 16:09] VITALS: BMI 26.7
--- NOTE | 2020-01-30 | DI.US.S_ITS ---
PROCEDURE: US CAROTID DOPPLER BI INDICATIONS: DIZZY SPELLS TECHNIQUE: Color and pulse Doppler interrogation was performed of both carotid systems, with image documentation and velocity measurements. COMPARISON: [facility], , CAROTID ARTERY DOPPLER BIL, 11/28/2006, 7:33. FINDINGS: Stenosis calculations are based on SRU (Society of Radiologists in Ultrasound) criteria. The flow velocities and the arterial waveforms are normal within both carotid arterial systems. Atherosclerotic plaque is seen on both sides. The estimated degree of internal carotid artery stenosis is less than 50%. Antegrade flow is confirmed within both vertebral arteries. There is increased flow velocity seen within the mid left external carotid artery, with measuring 299 centimeters/second. There is only trickle flow seen within the left proximal external carotid artery. IMPRESSION: No hemodynamically significant stenosis is seen involving the internal carotid arteries. High-grade stenosis can be seen involving the left proximal external carotid artery. Atherosclerotic plaque is noted bilaterally. Dictated by: Garrison Naranjo M.D. on 01/30/2020 at 12:52 Approved by: Garrison Naranjo M.D. on 01/30/2020 at 12:53
== END ==
PROVIDERS: PCP Family Medicine; Referring Provider Family Medicine; Visit Provider Family Medicine
DX: R42 Dizziness and giddiness (principal); I65.23 Occlusion and stenosis of bilateral carotid arteries
CPT/HCPCS: 93880

== ENCOUNTER 2020-03-23 12:35 | Observation (INO) | payer MEDICARE, OTHER, SELFPAY ==
[2019-05-28 16:09] VITALS: BMI 26.7
[2020-03-23] VITALS (12 sets, daily range): BP systolic 133–163; BP diastolic 69–92; PULSE 96–132; RESP 14–30; TEMP 35.9–37.1; O2SAT 95–98; BMI 28.1
--- NOTE | 2020-03-23 12:58 | DI.RAD.S_ITS ---
PROCEDURE: XR CHEST 1V INDICATIONS: chest pain TECHNIQUE: One view of the chest was acquired. COMPARISON: [facility], CR, XR CHEST 1V, 05/28/2019, 11:20. FINDINGS: Surgical changes and devices: None. Lungs and pleura: Lungs are clear. No pleural effusions or pneumothorax. Mediastinum: Mediastinal contours appear normal. Heart size is normal. Bones and chest wall: No suspicious bony lesions. Overlying soft tissues appear unremarkable. IMPRESSION: No acute process. Dictated by: Barb Pichardo M.D. on 03/23/2020 at 13:28 Approved by: Barb Pichardo M.D. on 03/23/2020 at 13:28
[2020-03-23 13:21] LABS: Add Manual Diff / Slide Review NO; Basophils Absolute Auto 100 /uL (0-100); Basophils Percent Auto 0.6 % (0-2); Eosinophils Absolute Auto 0 /uL (0-450); Eosinophils Percent Auto 0.2 % (2-4); Hematocrit 33.9 % (36-46); Hemoglobin 10.8 g/dL (12.0-16.0); Lymphocytes Absolute Auto 900 /uL (1100-4500); Lymphocytes Percent Auto 6.3 % (25-40); Mean Corpuscular HGB Conc 31.9 % (30-36); Mean Corpuscular Hemoglobin 27.9 PG (26-34); Mean Corpuscular Volume 87.4 fL (80-100); Monocytes Absolute Auto 1000 /uL (0-900); Monocytes Percent Auto 7.2 % (3-14); Neutrophils Absolute Auto 11600 /uL (1500-7000); Neutrophils Percent Auto 85.7 % (50-75); Platelet Count 242 X10^3/uL (150-400); Red Blood Cell Count 3.88 X10^6/uL (4.0-5.2); Red Cell Distribution Width 15.1 % (11.6-14.8); White Blood Cell Count 13.6 X10^3/uL (4.5-11.0)
[2020-03-23 13:23] LABS: INR 1.8 (0.9-1.3); Prothrombin Time 20.7 SECONDS (10.1-12.7)
[2020-03-23 13:26] LABS: PTT Partial Thromboplastin Tim 31 SECONDS (26.4-36.2)
[2020-03-23 13:27] LABS: Alanine Aminotransferase 21 IU/L (<35); Albumin 3.9 g/dL (3.5-5.0); Albumin Globulin Ratio 1.3 (1.0-2.8); Alkaline Phosphatase 86 U/L (38-126); Aspartate Aminotransferase 34 IU/L (14-36); BUN Creatinine Ratio 21.8 (6-22); Bilirubin Total 0.5 mg/dL (0.2-1.3); Blood Urea Nitrogen 31 mg/dL (7-17); Calcium 8.9 mg/dL (8.4-10.2); Carbon Dioxide 24 mmol/L (22-32); Chloride 105 mmol/L (98-107); Creatine Kinase 35 U/L (30-135); Estimated Glomerular Filt Rate 35.2 mL/min (>60); Globulin 3.1 g/dL (1.7-4.1); Glucose 158 mg/dL (80-110); HEMOLYSIS < 15 (0-50); Lipase 186 U/L (23-300); Potassium 3.9 mmol/L (3.4-5.1); Sodium 137 mmol/L (137-145)
--- NOTE | 2020-03-23 13:32 | ED.ARRPALP ---
HPI - Arrhythmia/Palpitations General Chief Complaint: Arrhythmia/Palpitations Stated Complaint: atrial fib couple of hours Time Seen by Provider: 03/23/20 13:18 Source: patient Mode of arrival: Wheelchair Limitations: no limitations History of Present Illness HPI narrative: This is a pleasant 84-year-old female who comes to the emergency department with complaint of fast heartbeat. Patient states that she noticed this morning about 10:00 a.m.. She has a history of atrial fibrillation. She states she was diagnosed in the last year. She has seen cardiology in the past but is not following regularly. She is anticoagulated on Xarelto. She denies any chest pain or pressure. She appears very mildly short of breath occasionally. She felt slightly lightheaded this morning but no syncope or presyncope. No nausea, no vomiting. No diaphoresis. No issues with urination. She has chronic diarrhea but has not had any new changes in took some Imodium yesterday which is starting to improve her symptoms. She denies any bright red blood or melena. She typically has swelling in her lower extremities which she states is improved today from her prior. She takes multiple medications for hypertension, dyslipidemia, hypothyroid, atrial fibrillation, insulin-dependent diabetes along with daily prednisone hand as needed gout medications. She denies any prior surgeries other than oophorectomy. Her primary care is Dr. Mahan. Related Data Home Medications Medication Instructions Recorded Confirmed Lantus U-100 Insulin 20 unit SQ QAM #0 10/16/12 05/28/19 ezetimibe [Zetia] 10 mg PO DAILY #0 10/16/12 05/28/19 insulin lispro [Humalog U-100 10 - 15 u SQ QID PRN #0 05/31/16 05/28/19 Insulin] atenolol 25 mg PO BID 01/25/18 05/28/19 chlorthalidone 25 mg PO DAILY 01/25/18 05/28/19 allopurinol 100 mg PO QPM 08/08/18 05/28/19 levothyroxine 125 mcg PO DAILY 08/08/18 05/28/19 prednisone 5 mg PO DAILY 08/08/18 05/28/19 rivaroxaban 15 mg PO DAILY 08/08/18 05/28/19 colchicine [Colcrys] See Rx Instructions .ROUTE 01/28/19 05/28/19 .COMPLEX PRN MDD 3 tab meclizine 12.5 - 25 mg PO BEDTIME PRN 01/28/19 05/28/19 Lantus Solostar U-100 Insulin 16 unit SUBCUT QPM 05/28/19 05/28/19 acetaminophen 325 mg PO PRN PRN 05/28/19 05/28/19 flash glucose sensor [FreeStyle 05/28/19 05/28/19 Thomas 14 Day Sensor] prednisone 4 mg PO DAILY 05/28/19 05/28/19 Previous Rx's Medication Instructions Recorded amlodipine [Norvasc] 10 mg PO DAILY #30 tab 05/31/19 hydralazine 25 mg PO BIDWM #60 tab 05/31/19 rosuvastatin 5 mg PO BEDTIME #30 tab 05/31/19 Allergies Allergy/AdvReac Type Severity Reaction Status Date / Time kiwi Allergy Severe ANAPHYLAXIS Verified 03/23/20 12:53 Sulfa (Sulfonamide Allergy Severe unknown Verified 03/23/20 12:53 Antibiotics) meperidine AdvReac Severe I GO NUTS Verified 03/23/20 12:53 morphine AdvReac Severe DIZZY Verified 03/23/20 12:53 Review of Systems Review of Systems ROS Unobtainable: All systems reviewed & are unremarkable except as noted in HPI and below Patient History Medical History HTN (hypertension) HTN (hypertension) Hypoglycemia Palpitations Paroxysmal atrial fibrillation SOB (shortness of breath) Surgical History No pertinent past surgical history Social History household members: children Smoking Status: Never smoker alcohol intake: current Smoking Status: Never smoker alcohol intake frequency: 0-2 drinks per day Alcohol type: hard liquor Substance Use Type: does not use Exam Narrative Exam Narrative: GENERAL: Alert and oriented x three, well-nourished, well-appearing female in mild distress HEENT: Head normocephalic, atraumatic, EOMI, pupils reactive, face symmetric, moist mucous membranes NECK: Supple, full range of motion CARDIOVASCULAR: Irregularly irregular rate and rhythm without murmurs, rubs or gallops. No JVD. RESPIRATORY: Breath sounds equal bilaterally, no wheezes rales or rhonchi. ABDOMEN: Soft, nontender. Normoactive bowel sounds all 4 quadrants. No guarding or rebound, rigidity, no mass : No CVA tenderness EXTREMITIES: Normal range of motion, no clubbing. Trace edema bilateral lower extremities. Neurovascularly intact NEUROLOGICAL: Cranial nerves II through XII grossly intact. Moving all extremities SKIN: Warm, dry, no petechiae, no rashes or lesions. Initial Vital Signs Initial Vital Signs: Vital Signs Temperature 98.6 F 03/23/20 12:51 Pulse Rate 132 H 03/23/20 12:51 Respiratory Rate 16 03/23/20 12:51 Blood Pressure 141/92 H 03/23/20 12:51 Pulse Oximetry 97 03/23/20 12:51 Course Orders Ordered: ED Orders 03/23/20 12:58 XR chest 1V Stat EKG-12 Lead Stat 03/23/20 13:05 Complete Blood Count AUTO DIFF Stat Comprehensive Metabolic Panel Stat Lipase Stat NT-proBNP (BNP-Adult 18+) Stat Partial Thromboplastin Time Stat Prothrombin Time INR Stat Troponin & CK Cardiac Panel Stat Acetaminophen (Acetaminophen 325 Mg Tablet) 650 mg PO Q6HR PRN PRN Reason: Fever/Mild Pain (1-3) Allopurinol (Allopurinol 100 Mg Tablet) 100 mg PO QPM MARIAA Amlodipine Besylate (Amlodipine 5 Mg Tablet) 10 mg PO DAILY MARIAA Atenolol (Atenolol 25 Mg Tablet) 25 mg PO BID MARIAA Chlorthalidone (Chlorthalidone 25 Mg Tablet) 25 mg PO DAILY COUNT INCLUDES THE [facility] Dextrose (Dextrose 50 % In Water 25 Gm/50 Ml Syringe) 25 gm IV PRN PRN PRN Reason: Hypoglycemia Insulin Aspart (Insulin Aspart 100 Unit/Ml Insuln Pen) 0 unit SUBCUT ACHS COUNT INCLUDES THE [facility]; Protocol Last Admin: 03/23/20 18:28 Dose: 2 unit Documented by: MEHRAN Cosigned by: YVROSE Insulin Glargine (Insulin Glargine 100 Unit/Ml 10ml Vial) 24 unit SUBCUT DAILY COUNT INCLUDES THE [facility] Insulin Glargine (Insulin Glargine 100 Unit/Ml 3ml Pen) 22 unit SUBCUT BEDTIME COUNT INCLUDES THE [facility] Levothyroxine Sodium (Levothyroxine 125 Mcg Tablet) 125 mcg PO 0600 COUNT INCLUDES THE [facility] Naloxone HCl (Naloxone 0.4 Mg/Ml Vial) 0.2 mg IV Q2MIN PRN PRN Reason: Opiate Reversal Prednisone (Prednisone 5 Mg Tablet) 5 mg PO DAILY MARIAA Prednisone (Prednisone 1 Mg Tablet) 3 mg PO DAILY COUNT INCLUDES THE [facility] Rivaroxaban (Rivaroxaban 10 Mg Tablet) 15 mg PO DAILY MARIAA Rosuvastatin Calcium (Rosuvastatin 10 Mg Tablet) 5 mg PO BEDTIME MARIAA Discontinued Medications Amlodipine Besylate (Amlodipine 5 Mg Tablet) 10 mg PO NOW ONE Stop: 03/23/20 14:38 Last Admin: 03/23/20 14:54 Dose: 10 mg Documented by: KHALIF Aspirin (Aspirin 81 Mg Chew Tab) 324 mg PO NOW ONE Stop: 03/23/20 15:29 Last Admin: 03/23/20 15:49 Dose: 324 mg Documented by: KHALIF Atenolol (Atenolol 50 Mg Tablet) 50 mg PO NOW ONE Stop: 03/23/20 14:38 Last Admin: 03/23/20 14:54 Dose: 50 mg Documented by: KHALIF Diltiazem HCl (Diltiazem 5 Mg/Ml Sdv) 20 mg IV NOW ONE Stop: 03/23/20 14:13 Last Admin: 03/23/20 14:19 Dose: 20 mg Documented by: KHALIF Furosemide (Furosemide 40 Mg/4 Ml Vial) 40 mg IV NOW ONE Stop: 03/23/20 15:29 Last Admin: 03/23/20 15:49 Dose: 40 mg Documented by: KHALIF Reevaluation(s) Reevaluation #1: Patient updated on prior EKG and findings, labs and discussion with Dr. Mahan. Time: 15:36 Consultations Consultation #1: Dr. Mahan accepts for observation. Patient does have some new ST depression in V2 V3 troponin is negative, BNP is elevated from prior but she does not have pulmonary edema on chest x-ray. She is very mildly short of breath but her main symptomatology was tachycardia. Discussed with Dr. Mahan he accepts for observation is patient has some new ST change her tachycardia is been slowly improving she received a dose of IV Cardizem and her home oral medications including amlodipine and atenolol. Time: 15:35 Vital Signs Vital signs: Vital Signs - 8 hr 03/23/20 12:51 03/23/20 13:18 03/23/20 13:30 Temperature 98.6 F Pulse Rate 132 H 118 H 118 H Respiratory Rate 16 25 H 18 Blood Pressure 141/92 H Pulse Oximetry 97 97 97 03/23/20 14:00 03/23/20 14:30 03/23/20 14:42 Temperature Pulse Rate 118 H 111 H 119 H Respiratory Rate 30 H 24 26 H Blood Pressure 156/71 H Pulse Oximetry 97 96 97 03/23/20 15:00 03/23/20 15:30 Temperature Pulse Rate 117 H 103 H Respiratory Rate 28 H 26 H Blood Pressure 163/75 H 150/69 H Pulse Oximetry 96 95 MDM - Arrhythmia/Palpitations Lab Data Result diagrams: 03/23/20 13:05 03/23/20 13:05 Labs: Lab Results 03/23/20 03/23/20 03/23/20 Range/Units 13:05 13:05 13:05 WBC 13.6 H (4.5-11.0) X10^3/uL RBC 3.88 L (4.0-5.2) X10^6/uL Hgb 10.8 L (12.0-16.0) g/dL Hct 33.9 L (36-46) % MCV 87.4 (80-100) fL MCH 27.9 (26-34) PG MCHC 31.9 (30-36) % RDW 15.1 H (11.6-14.8) % Plt Count 242 (150-400) X10^3/uL Neut % (Auto) 85.7 H (50-75) % Lymph % (Auto) 6.3 L (25-40) % [place] % (Auto) 7.2 (3-14) % Eos % (Auto) 0.2 L (2-4) % Baso % (Auto) 0.6 (0-2) % Neut # (Auto) 92035 H (9621-4927) /uL Lymph # (Auto) 900 L (8139-6186) /uL [place] # (Auto) 1000 H (0-900) /uL Eos # (Auto) 0 (0-450) /uL Baso # (Auto) 100 (0-100) /uL PT 20.7 H (10.1-12.7) SECONDS INR 1.8 H (0.9-1.3) APTT 31 (26.4-36.2) SECONDS Sodium 137 (137-145) mmol/L Potassium 3.9 (3.4-5.1) mmol/L Chloride 105 (98-107) mmol/L Carbon Dioxide 24 (22-32) mmol/L BUN 31 H (7-17) mg/dL Creatinine 1.42 H (0.52-1.04) mg/dL Estimated GFR 35.2 L (>60) mL/min BUN/Creatinine Ratio 21.8 (6-22) Glucose 158 H (80-110) mg/dL Calcium 8.9 (8.4-10.2) mg/dL Total Bilirubin 0.5 (0.2-1.3) mg/dL AST 34 (14-36) IU/L ALT 21 (<35) IU/L Alkaline Phosphatase 86 (38-126) U/L Total Creatine Kinase 35 (30-135) U/L CK-MB (CK-2) TNP CK-MB (CK-2) Rel Index TNP Troponin I 0.027 (0.01-0.034) ng/mL NT-Pro-B Natriuret Pep (<450) pg/mL Total Protein 7.0 (6.3-8.2) g/dL Albumin 3.9 (3.5-5.0) g/dL Globulin 3.1 (1.7-4.1) g/dL Albumin/Globulin Ratio 1.3 (1.0-2.8) Lipase 186 (23-300) U/L 03/23/20 Range/Units 13:05 WBC (4.5-11.0) X10^3/uL RBC (4.0-5.2) X10^6/uL Hgb (12.0-16.0) g/dL Hct (36-46) % MCV (80-100) fL MCH (26-34) PG MCHC (30-36) % RDW (11.6-14.8) % Plt Count (150-400) X10^3/uL Neut % (Auto) (50-75) % Lymph % (Auto) (25-40) % [place] % (Auto) (3-14) % Eos % (Auto) (2-4) % Baso % (Auto) (0-2) % Neut # (Auto) (6443-6503) /uL Lymph # (Auto) (6126-4424) /uL [place] # (Auto) (0-900) /uL Eos # (Auto) (0-450) /uL Baso # (Auto) (0-100) /uL PT (10.1-12.7) SECONDS INR (0.9-1.3) APTT (26.4-36.2) SECONDS Sodium (137-145) mmol/L Potassium (3.4-5.1) mmol/L Chloride (98-107) mmol/L Carbon Dioxide (22-32) mmol/L BUN (7-17) mg/dL Creatinine (0.52-1.04) mg/dL Estimated GFR (>60) mL/min BUN/Creatinine Ratio (6-22) Glucose (80-110) mg/dL Calcium (8.4-10.2) mg/dL Total Bilirubin (0.2-1.3) mg/dL AST (14-36) IU/L ALT (<35) IU/L Alkaline Phosphatase (38-126) U/L Total Creatine Kinase (30-135) U/L CK-MB (CK-2) CK-MB (CK-2) Rel Index Troponin I (0.01-0.034) ng/mL NT-Pro-B Natriuret Pep 1240 H (<450) pg/mL Total Protein (6.3-8.2) g/dL Albumin (3.5-5.0) g/dL Globulin (1.7-4.1) g/dL Albumin/Globulin Ratio (1.0-2.8) Lipase (23-300) U/L Imaging Data Chest x-ray: Radiologist's Impresson: [address] [id number] ReportSigned Patient: Jackie Orta FMR#: [id number]: 5Acct:[id number]/Sex: 84 / FDate of Service: 03/23/20Loc: EDAccession Number: [id number] Procedure: XR chest 1V Ordering Provider: Mackenzie Hardin D.O. PROCEDURE: XR CHEST 1V INDICATIONS: chest pain TECHNIQUE: One view of the chest was acquired. COMPARISON: [facility], , XR CHEST 1V, 05/28/2019, 11:20. FINDINGS: Surgical changes and devices: None. Lungs and pleura: Lungs are clear. No pleural effusions or pneumothorax. Mediastinum: Mediastinal contours appear normal. Heart size is normal. Bones and chest wall: No suspicious bony lesions. Overlying soft tissues appear unremarkable. IMPRESSION: No acute process. Dictated by: Barb Pichardo M.D. on 03/23/2020 at 13:28 Approved by: Barb Pichardo M.D. on 03/23/2020 at 13:28 ECG Data Attestation: I personally reviewed and interpreted this ECG as follows: Prior ECG tracings: not available for review Interpretation: AFib with rapid ventricular response with a rate of 129, QRS 85 and QTC of 382 nonspecific change in 1, 2 and avF, patient does appear to have some depression in V2-V6. No elevation appreciated. No prior available for review. Able to obtain a prior EKG from patient's primary care office. EKG is from 07/22/2019 which shows a sinus bradycardia with inverted T-waves in 1 aVL and AVF with similar changes in 3 as today. Patient has some ST segment depression in V4 V6 but isn't appreciated on patient's V2 or V3 leads. MDM Narrative Medical decision making narrative: 84-year-old female with known atrial fibrillation that is appropriately anticoagulated on Xarelto. Patient is slightly anemic but appears fairly close to baseline. She does have a mild leukocytosis at 13. Platelets are appropriate at 2:42 a.m. appropriate for her anticoagulation and her renal function is at baseline or slightly improved with no major electrolyte abnormalities. Glucose is 158 today. Patient's troponin is negative at 0.027, BNP is elevated at 1240. CXR is negative with no signs of pulmonary edema. Patient does not initially seem a unstable we did discuss that she potentially be a candidate for cardioversion as she is anticoagulated but she defers currently will try a dose of IV medication and she has not had what used to be her morning medications for her atrial fibrillation which she has moved to the evening and she has decreased her atenolol dose as well. Patient's heart rate has been improving after a dose of IV Cardizem and patient was given her home amlodipine and atenolol doses although occasionally is still elevated. Was able to obtain an old EKG and patient does have some new ST changes compared to old although she is otherwise asymptomatic. Spoke with Dr. Mahan, he accepts for observation. Discharge Plan Departure Patient Disposition: Admitted as Observation Clinical Impression: Atrial fibrillation with RVR, CHF (congestive heart failure) Admit Date/Time: 03/23/20 15:48 Admit Provider: Benigno Mahan
[2020-03-23 13:39] LABS: Troponin I 0.027 ng/mL (0.01-0.034)
[2020-03-23] MEDS: dilTIAZem 5 MG/ML SDV 20 MG IV (14:19)
[2020-03-23] MEDS: AMLODIPINE 5 MG TABLET 10 MG PO (14:54)
[2020-03-23] MEDS: atenoloL 50 MG TABLET PO (14:54)
[2020-03-23 15:01] LABS: NT-proBNP (BNP-Adult 18+) 1240 pg/mL (<450)
[2020-03-23] MEDS: FUROSEMIDE 40 MG/4 ML VIAL IV (15:49)
[2020-03-23] MEDS: ASPIRIN 81 MG CHEW TAB 324 MG PO (15:49)
[2020-03-23 17:07] LABS: COVID19 -Nasal RAPID Negative (Negative)
--- NOTE | 2020-03-23 17:40 | P.HP_ITS ---
History of Present Illness History of Present Illness Date Patient Seen: 03/23/20 Time Patient Seen: 17:40 Date of Onset of Symptoms: 03/23/20 Chief complaint: atrial fib couple of hours Narrative: Patient is an 84-year-old white female well known to me who presents with palpitations. Apparently she woke up this morning was feeling okay at 10:00 a.m. this morning or 930 she started having palpitations or fast heart rate. She had no chest pain. No shortness of breath. She checked her sugar that was low in the 40s. She ate and felt better with that but still had a continued problem. She went and got her blood drawn at the clinic and then went home. She called and said she was having some discomfort with the palpitations. She got a little bit of dizziness little bit lightheadedness. Had no other change. She otherwise was feeling quite well and had no other significant changes. She denies any visual changes headaches chest pain of any kind. She has no real shortness of breath. She had no nausea vomiting or diaphoresis. She was feeling quite a bit better after that period without any other changes. She had had no significant previous issue. Patient has a long history of atrial fibrillation. Does have a history of cardiac disease. She has been stable for some time. She has not had any change in medications. She has had no urinary symptoms. No change in bowel movements. Really had been feeling quite well up until that time. His sugars have been pretty well managed. She has not had a significant amount of low sugars. Otherwise she has been doing well. Has not seen the dietary aid recently. Patient is social history she lives alone without other complaints or problems. Review of systems as above Past medical history uterine cancer own the 70s. UA past surgical history hysterectomy left ovary 1973 Cholecystectomy 2011 Family history father age 60 for heart attack CAD and hyperlipidemia Mother age 84 alcohol, heart disease Siblings asthma heart disease depression hyperlipidemia Daughter with breast cancer Patient History Medical History HTN (hypertension) HTN (hypertension) Hypoglycemia Palpitations Paroxysmal atrial fibrillation SOB (shortness of breath) Surgical History No pertinent past surgical history Family & Social History Social History: household members children Prior Living Arrangements House Safety & Behavioral: Feels Safe in Current Yes Environment Been Physically Hurt or No Threatened By a Person Suicidal Ideation Description None Suicide Plan Description No Plan Tobacco & Substance use: Smoking Status Never smoker alcohol intake current alcohol intake frequency 0-2 drinks per day Substance Use Type does not use Meds Home Medications and Allergies Home Medications Medication Instructions Recorded Confirmed Type Lantus U-100 Insulin 20 unit SQ QAM #0 10/16/12 05/28/19 History ezetimibe [Zetia] 10 mg PO DAILY #0 10/16/12 05/28/19 History insulin lispro [Humalog U-100 10 - 15 u SQ QID PRN #0 05/31/16 05/28/19 History Insulin] atenolol 25 mg PO BID 01/25/18 05/28/19 History chlorthalidone 25 mg PO DAILY 01/25/18 05/28/19 History allopurinol 100 mg PO QPM 08/08/18 05/28/19 History levothyroxine 125 mcg PO DAILY 08/08/18 05/28/19 History prednisone 5 mg PO DAILY 08/08/18 05/28/19 History rivaroxaban 15 mg PO DAILY 08/08/18 05/28/19 History colchicine [Colcrys] See Rx Instructions .ROUTE 01/28/19 05/28/19 History .COMPLEX PRN MDD 3 tab meclizine 12.5 - 25 mg PO BEDTIME PRN 01/28/19 05/28/19 History Lantus Solostar U-100 Insulin 16 unit SUBCUT QPM 05/28/19 05/28/19 History acetaminophen 325 mg PO PRN PRN 05/28/19 05/28/19 History flash glucose sensor [FreeStyle 05/28/19 05/28/19 History Thomas 14 Day Sensor] prednisone 4 mg PO DAILY 05/28/19 05/28/19 History amlodipine [Norvasc] 10 mg PO DAILY #30 tab 05/31/19 Rx hydralazine 25 mg PO BIDWM #60 tab 05/31/19 Rx rosuvastatin 5 mg PO BEDTIME #30 tab 05/31/19 Rx Allergies Allergy/AdvReac Type Severity Reaction Status Date / Time kiwi Allergy Severe ANAPHYLAXIS Verified 03/23/20 12:53 Sulfa (Sulfonamide Allergy Severe unknown Verified 03/23/20 12:53 Antibiotics) meperidine AdvReac Severe I GO NUTS Verified 03/23/20 12:53 morphine AdvReac Severe DIZZY Verified 03/23/20 12:53 Review of Systems Review of Systems ROS: Yes All systems reviewed with the patient and are negative except as o therwise documented Exam Vital Signs (past 8 hours): - 03/23/20 12:51 03/23/20 13:18 03/23/20 13:30 Temperature 98.6 F Pulse Rate 132 H 118 H 118 H Respiratory Rate 16 25 H 18 Blood Pressure 141/92 H Pulse Oximetry 97 97 97 03/23/20 14:00 03/23/20 14:30 03/23/20 14:42 Temperature Pulse Rate 118 H 111 H 119 H Respiratory Rate 30 H 24 26 H Blood Pressure 156/71 H Pulse Oximetry 97 96 97 03/23/20 15:00 03/23/20 15:30 03/23/20 16:00 Temperature Pulse Rate 117 H 103 H 99 H Respiratory Rate 28 H 26 H 23 Blood Pressure 163/75 H 150/69 H 158/70 H Pulse Oximetry 96 95 95 Oxygen Delivery Method Room Air Narrative Exam Narrative: Alert smiling female sitting up in bed no acute distress. HEENT exam mucous membranes moist. Neck supple without adenopathy JVD or bruits. Lungs are clear. Heart rate is controlled. Irregular. Murmur 2/6 systolic murmur best heard right sternal border with radiation to the left and into the neck. Abdomen is soft positive bowel sounds nontender. Extremities without cyanosis clubbing edema. Neurologic exam is unremarkable. Psychologically a tacked Objective Labs Result Diagrams: 03/23/20 13:05 03/23/20 13:05 Labs: Laboratory Results - last 24 hr 03/23/20 03/23/20 03/23/20 13:05 13:05 13:05 WBC 13.6 H RBC 3.88 L Hgb 10.8 L Hct 33.9 L MCV 87.4 MCH 27.9 MCHC 31.9 RDW 15.1 H Plt Count 242 Neut % (Auto) 85.7 H Lymph % (Auto) 6.3 L [place] % (Auto) 7.2 Eos % (Auto) 0.2 L Baso % (Auto) 0.6 Neut # (Auto) 96108 H Lymph # (Auto) 900 L [place] # (Auto) 1000 H Eos # (Auto) 0 Baso # (Auto) 100 PT 20.7 H INR 1.8 H APTT 31 Sodium 137 Potassium 3.9 Chloride 105 Carbon Dioxide 24 BUN 31 H Creatinine 1.42 H Estimated GFR 35.2 L BUN/Creatinine Ratio 21.8 Glucose 158 H Calcium 8.9 Total Bilirubin 0.5 AST 34 ALT 21 Alkaline Phosphatase 86 Total Creatine Kinase 35 CK-MB (CK-2) TNP CK-MB (CK-2) Rel Index TNP Troponin I 0.027 NT-Pro-B Natriuret Pep Total Protein 7.0 Albumin 3.9 Globulin 3.1 Albumin/Globulin Ratio 1.3 Lipase 186 COVID-19 PCR 03/23/20 03/23/20 13:05 15:52 WBC RBC Hgb Hct MCV MCH MCHC RDW Plt Count Neut % (Auto) Lymph % (Auto) [place] % (Auto) Eos % (Auto) Baso % (Auto) Neut # (Auto) Lymph # (Auto) [place] # (Auto) Eos # (Auto) Baso # (Auto) PT INR APTT Sodium Potassium Chloride Carbon Dioxide BUN Creatinine Estimated GFR BUN/Creatinine Ratio Glucose Calcium Total Bilirubin AST ALT Alkaline Phosphatase Total Creatine Kinase CK-MB (CK-2) CK-MB (CK-2) Rel Index Troponin I NT-Pro-B Natriuret Pep 1240 H Total Protein Albumin Globulin Albumin/Globulin Ratio Lipase COVID-19 PCR Negative Assessment & Plan Assessment & Plan narrative: ST depression mostly anterior. Will repeat EKG in the morning. Will rule out for [facility]. Will admit for obstetrics. Patient probably not actively infarcting but will need to watch closely. High risk due to her previous heart disease and diabetes. Do not believe that it was ischemic disease that brought her into the hospital. Atrial fibrillation with RVR. Easily treated in the hot emergency room with Cardizem. Seems to be stable now will continue usual medicines and follow. Low blood sugar secondary to diabetes. Happens intermittently will have to watch closely while she is here. No change in her insulin though. Hypothyroidism stable will follow. Polymyalgia rheumatica. Continue usual 8 mg dose of prednisone. Will follow. Code status. DNR. Disposition. Patient with significant changes on EKG but apparently no other findings. Will rule out for [facility] probable home tomorrow. Quality VTE Deep Vein Thrombosis/Pulmonary Embolism Present on Admission: No
[2020-03-23] MEDS: INSULIN ASPART 100 UNIT/ML INSULN PEN SUBCUT (18:28)
[2020-03-23] MEDS: atenoloL 25 MG TABLET PO (20:54)
[2020-03-23] MEDS: ROSUVASTATIN 10 MG TABLET 5 MG PO (20:54)
[2020-03-23] MEDS: INSULIN GLARGINE 100 UNIT/ML 3ML PEN 22 UNIT SUBCUT (21:32)
--- NOTE | 2020-03-23 22:14 | PC.NURSE ---
Pt arrived from ED @ 1635 Alert/oriented Denies discomfort. Lungs clear, Spo2 97% RA Tele shows a-fib per ICU staff. & HL RAC intact/patent. CBG = 178 & 159 received 18u lantus @ HS per pt usual dose. Call light w/in reach, pt calls appropriately for needs Continue w/plan of care.
[2020-03-23 23:25] LABS: Creatine Kinase 33 U/L (30-135)
[2020-03-23 23:42] LABS: Troponin I 0.152 ng/mL (0.01-0.034)
[2020-03-24] VITALS (7 sets, daily range): BP systolic 119–159; BP diastolic 50–75; PULSE 55–95; RESP 14–20; TEMP 36.1–36.7; O2SAT 93–97
--- NOTE | 2020-03-24 01:05 | PC.NURSE ---
pt awake when this screen writer assessed pt, pt denies chest pain but complains of chest tightness that started yesterday morning. Pt is independent in the room, denies palpitations, dizziness, headache, numbness. This screen writer received critical lab value by [facility], troponin level is 0.152. Dr Barragan notified. New orders per MD are EKG in the morning and monitor her troponin level when lab draws it at 0600. RT notified of the EKG.
[2020-03-24] MEDS: LEVOTHYROXINE 125 MCG TABLET PO (05:34)
[2020-03-24 07:02] LABS: Creatine Kinase 38 U/L (30-135)
[2020-03-24 07:41] LABS: Troponin I 0.163 ng/mL (0.01-0.034)
--- NOTE | 2020-03-24 09:23 | DI.ECHO.S_ITS ---
[facility] +---------+ : : [address] [place] : : : : [id number] : : : : Phone: [phone]+ Echocardiogram Report + + :Name: KELLY NAYLOR Study Date: 03/24/2020 Height: 67 in : :[facility] Weight: 180 lb : : Gender: Female BSA: 1.9 m2 : :: 1935 Age: 84 yrs BP: 133/55 mmHg: :Reason For Study: AFIB, TACHYCARDIA : :Ordering Physician: NANCY, : :NATALIIA Performed By: Jennifer Samuel : :Referring: NATALIIA CRUZ : + + Interpretation Summary The left ventricle is normal in size. Left ventricular systolic function appears normal without focal wall motion abnormalities. The ejection fraction is estimated to be 55-60%. LVEF has not changed. Diastolic parameters suggest a pseudonormalization pattern, consistent with probable elevated filling pressures. The right ventricle is normal in size and function. The right ventricular systolic pressure is estimated to be at least 32 mmHg based on an estimated right atrial pressure of 3 mm Hg. The left atrium is moderately dilated. Right atrial size is normal. There is mild to moderate mitral regurgitation. MR has not changed since prior study. There is mild aortic stenosis. The peak aortic velocity is 2.58 m/sec. The peak aortic velocity on the previous exam was 2.4 m/sec. There is mild aortic regurgitation. There is no other significant valvular heart disease. The aortic root is normal size. Procedure: A two-dimensional transthoracic echocardiogram with color flow and Doppler was performed. The study quality was technically adequate. Comparison is made with the echocardiogram of 05/30/2019. The patient was in sinus bradycardia with heart rates between 51-56 bpm during the exam. Left Ventricle: The left ventricle is normal in size. Left ventricular wall thickness is mildly increased. Left ventricular systolic function appears normal without focal wall motion abnormalities. The ejection fraction is estimated to be 55-60%. Diastolic parameters suggest a pseudonormalization pattern, consistent with probable elevated filling pressures. Right Ventricle: The right ventricle is normal in size and function. Atria: The left atrium is moderately dilated. Right atrial size is normal. There is no Doppler evidence for an interatrial shunt. Mitral Valve: The mitral valve leaflets are slightly calcified. There is mild mitral annular calcification. There is mild to moderate mitral regurgitation. Aortic Valve: The aortic valve is mildly calcified. The aortic valve is trileaflet. There is mildly reduced leaflet mobility. There is mild aortic stenosis. The peak aortic velocity is 2.58 m/sec. The peak aortic velocity on the previous exam was 2.4 m/sec. The aortic valve mean gradient is 17 mmHg. There is mild aortic regurgitation. Tricuspid Valve: The tricuspid valve is normal in structure and function. There is mild tricuspid regurgitation. The right ventricular systolic pressure is estimated to be at least 32 mmHg based on an estimated right atrial pressure of 3 mm Hg. Pulmonic Valve: The pulmonic valve is not well visualized. There is no pulmonic valvular regurgitation. There is no other significant valvular heart disease. Great Vessels: The aortic root is normal size. The ascending aorta is at the upper limits of normal in size. The IVC is of normal diameter and collapses greater than 50% with a sniff. This suggests a low right atrial pressure of 3 mm Hg. Pericardium/ Pleura There is no pericardial effusion. There is no pleural effusion. MMode/2D Measurements & Calculations LVIDd: 4.5 cm LVOT diam: 2.0 cm LVIDs: 2.9 cm Ao root diam: 3.2 cm FS: 35.1 % asc Aorta Diam: 3.4 cm EPSS: 0.57 cm Ao Arch Diam (Prox Trans): 3.4 cm IVSd: 1.1 cm LVPWd: 1.1 cm LV ray. diameter/BSA (cm/m^2): 2.3 LV sys. diameter/BSA (cm/m^2): 1.5 LA A2 area: 27.3 cm2 RA long axis: 5.1 cm LA A4 area: 25.4 cm2 RA area: 18.5 cm2 LA length (vol): 6.3 cm RA vol: 56.7 ml LA vol: 93.9 ml RA : 29.3 ml/m2 LA vol index: 48.6 ml/m2 IVC diam: 1.5 cm RVD1 (basal): 3.7 cm TAPSE: 2.2 cm Doppler Measurements & Calculations Ao V2 max: 257.7 cm/sec LVOT Max Frank: 86.8 cm/sec Ao V2 mean: 197.5 cm/sec LV V1 max P.0 mmHg Ao max P.6 mmHg LV V1 VTI: 27.4 cm Ao mean P.6 mmHg NAS(I,D): 1.1 cm2 Ao V2 VTI: 78.5 cm NAS(V,D): 1.0 cm2 sev ratio: 0.35 NAS indexed to BSA (cm^2/m^2): 0.54 MV E max frank: 121.1 cm/sec TR max frakn: 267.6 cm/sec MV A max frank: 103.2 cm/sec TR max P.7 mmHg MV E/A: 1.2 PA V2 max: 71.7 cm/sec Med Peak E' Frank: 4.4 cm/sec PA V2 mean: 46.4 cm/sec E/E' med: 27.4 PA mean P.00 mmHg Lat Peak E' Frank: 5.4 cm/sec PA pr(Accel): 27.6 mmHg E/E' lat: 22.6 E/e' average: 25.0 MV dec time: 0.23 sec SV(LVOT): 82.7 ml Reading Physician:02:09 PM
[2020-03-24] MEDS: predniSONE 5 MG TABLET PO (09:40)
[2020-03-24] MEDS: CHLORTHALIDONE 25 MG TABLET PO (09:40)
[2020-03-24] MEDS: RIVAROXABAN 10 MG TABLET 15 MG PO (09:41)
[2020-03-24] MEDS: predniSONE 1 MG TABLET 3 MG PO (09:42)
[2020-03-24] MEDS: atenoloL 25 MG TABLET PO (09:42)
[2020-03-24] MEDS: AMLODIPINE 5 MG TABLET 10 MG PO (09:42)
[2020-03-24] MEDS: INSULIN GLARGINE 100 UNIT/ML 3ML PEN 24 UNIT SUBCUT (10:11)
[2020-03-24] MEDS: INSULIN ASPART 100 UNIT/ML INSULN PEN SUBCUT ×2 (12:12→17:15)
--- NOTE | 2020-03-24 13:00 | PM.PN.1 ---
Subjective Subjective Date Patient Seen: 03/24/20 Time Patient Seen: 13:00 Interval history: Patient overall is feeling well. No major issues. No palpitations no chest pain no shortness of breath. Heart rate has been well controlled. No other changes. Exam Vital Signs (past 8 hours): - 03/24/20 07:41 03/24/20 08:20 03/24/20 11:04 Temperature 97.0 F L 96.9 F L Pulse Rate 95 H 55 L Respiratory Rate 16 16 Blood Pressure 144/75 H 133/55 L Pulse Oximetry 94 96 96 Oxygen Delivery Method Room Air Oxygen Flow Rate 0 Narrative Exam Narrative: Alert smiling female in no acute distress sitting in bed Mucous membranes moist. Neck supple without adenopathy lungs are clear. Heart regular rate and rhythm with unchanged murmur. Abdomen is soft positive bowel sounds nontender extremities are normal. No edema. Neurologic exam is nonfocal. Psychologically interactive smiling appropriate Objective Labs Result Diagrams: 03/23/20 13:05 03/23/20 13:05 Labs: Laboratory Results - last 24 hr 03/23/20 03/23/20 03/23/20 13:05 13:05 13:05 WBC 13.6 H RBC 3.88 L Hgb 10.8 L Hct 33.9 L MCV 87.4 MCH 27.9 MCHC 31.9 RDW 15.1 H Plt Count 242 Neut % (Auto) 85.7 H Lymph % (Auto) 6.3 L [place] % (Auto) 7.2 Eos % (Auto) 0.2 L Baso % (Auto) 0.6 Neut # (Auto) 22965 H Lymph # (Auto) 900 L [place] # (Auto) 1000 H Eos # (Auto) 0 Baso # (Auto) 100 PT 20.7 H INR 1.8 H APTT 31 Sodium 137 Potassium 3.9 Chloride 105 Carbon Dioxide 24 BUN 31 H Creatinine 1.42 H Estimated GFR 35.2 L BUN/Creatinine Ratio 21.8 Glucose 158 H Calcium 8.9 Total Bilirubin 0.5 AST 34 ALT 21 Alkaline Phosphatase 86 Total Creatine Kinase 35 CK-MB (CK-2) TNP CK-MB (CK-2) Rel Index TNP Troponin I 0.027 NT-Pro-B Natriuret Pep Total Protein 7.0 Albumin 3.9 Globulin 3.1 Albumin/Globulin Ratio 1.3 Lipase 186 COVID-19 PCR 03/23/20 03/23/20 03/23/20 13:05 15:52 23:00 WBC RBC Hgb Hct MCV MCH MCHC RDW Plt Count Neut % (Auto) Lymph % (Auto) [place] % (Auto) Eos % (Auto) Baso % (Auto) Neut # (Auto) Lymph # (Auto) [place] # (Auto) Eos # (Auto) Baso # (Auto) PT INR APTT Sodium Potassium Chloride Carbon Dioxide BUN Creatinine Estimated GFR BUN/Creatinine Ratio Glucose Calcium Total Bilirubin AST ALT Alkaline Phosphatase Total Creatine Kinase 33 CK-MB (CK-2) CK-MB (CK-2) Rel Index Troponin I 0.152 H* NT-Pro-B Natriuret Pep 1240 H Total Protein Albumin Globulin Albumin/Globulin Ratio Lipase COVID-19 PCR Negative 03/24/20 06:30 WBC RBC Hgb Hct MCV MCH MCHC RDW Plt Count Neut % (Auto) Lymph % (Auto) [place] % (Auto) Eos % (Auto) Baso % (Auto) Neut # (Auto) Lymph # (Auto) [place] # (Auto) Eos # (Auto) Baso # (Auto) PT INR APTT Sodium Potassium Chloride Carbon Dioxide BUN Creatinine Estimated GFR BUN/Creatinine Ratio Glucose Calcium Total Bilirubin AST ALT Alkaline Phosphatase Total Creatine Kinase 38 CK-MB (CK-2) CK-MB (CK-2) Rel Index Troponin I 0.163 H* NT-Pro-B Natriuret Pep Total Protein Albumin Globulin Albumin/Globulin Ratio Lipase COVID-19 PCR [facility] Medical History HTN (hypertension) HTN (hypertension) Hypoglycemia Palpitations Paroxysmal atrial fibrillation SOB (shortness of breath) Surgical History No pertinent past surgical history Social History household members: children Smoking Status: Never smoker alcohol intake: current Assessment & Plan Assessment & Plan narrative: Elevation in troponins. Discussed with stations superintendent. He feels this is secondary to demand with elevations heart rate. She has had a normal treadmill at the started this last year. Otherwise she is has no major issues. She feels great having no symptoms. His recommendation is for evaluation of echo if unchanged and no evidence of LV dysfunction he feels like she can be discharged and have outpatient treadmill. Will follow up echo. Results are in and today at this time. AFib with RVR. Stable. Well controlled no change in meds Type 2 diabetes. Stable. Hypothyroidism stable. Polymyalgia rheumatica. Stable no change. Code status DNR. Disposition. Expect discharge later today. I suspect this will be normal she is completely without symptoms but will see what echo shows Quality VTE Deep Vein Thrombosis/Pulmonary Embolism Present on Admission: No
--- NOTE | 2020-03-24 13:08 | PC.NURSE ---
Day shift: Per conversation w/ Dr Mahan stress test cancelled and will order new one for outpatient when Pt d/c from hospital.
--- NOTE | 2020-03-24 16:47 | CM.DANOTE ---
DCP/Assessment: Reviewed chart. Patient is a 84yr old female admitted to [facility] with AFIB. PCP is Dr. Mahan. Primary payor is 1)Medicare 2)[facility]. Met with patient explained role. Patient reports that she is primarily I in all ADL's. Patient plans to d/c home with supportive daughter when stable. No identified d/c planning needs at this time. P: Home when stable. BIN Cifuentes Discharge Planning/Care Management CM Discharge Assessment Start: 03/24/20 16:45 Freq: Status: Active Protocol: Document 03/24/20 16:45 KJS (Rec: 03/24/20 16:47 KJS [id number]) Discharge Planning Assessment Assigned Computer Laboratory Technician BIN Cifuentes Contact Information Jackie Avendano (daughter) cell# [phone] Advance Directives? Yes Advance Directives on File Yes History Provided By Patient,Medical Record Prior Living Arrangements House Household Members children Independent with ADL's Yes Is patient alert and oriented? Yes Caregiver for Another No Barriers to Discharge No Discharge Plan Home Transportation Arrangement Family to provide transport Referrals Initiated None needed Whiteboard Updated in Patient Room with Yes name and ext. # of Computer Laboratory Technician Review Status In Process Next Review Type Continued Stay Review
[2020-03-24] MEDS: allopurinoL 100 MG TABLET PO (17:23)
--- NOTE | 2020-03-24 19:32 | PC.NURSE ---
Discharge Note Patient A&O, VSS, no complaints of pain or discomfort. Discharge packet reviewed with patient along with follow-up instructions, no questions or concerns. PIV/tele discontinued. All belongings packed and given to patient along with discharge packet. Patient taken down via wheelchair by CONTROL ROOM HELPER to POV.
== END 2020-03-24 19:00 | disposition home or self-care (01) ==
LOC: ED 15:35 → AC 15:49
PROVIDERS: Admitting Provider Family Medicine; Emergency Provider Emergency Medicine; PCP Family Medicine; Referring Provider Emergency Medicine; Visit Provider Family Medicine
DX: I24.8 Other forms of acute ischemic heart disease (principal); R00.2 Palpitations; I48.91 Unspecified atrial fibrillation; I10 Essential (primary) hypertension; E78.5 Hyperlipidemia, unspecified; E03.9 Hypothyroidism, unspecified; M35.3 Polymyalgia rheumatica; E11.9 Type 2 diabetes mellitus without complications; Z79.4 Long term (current) use of insulin; Z79.01 Long term (current) use of anticoagulants; Z11.59 Encounter for screening for other viral diseases
CPT/HCPCS: 36415; 71045; 80053; 82550; 82962; 83690; 83880; 84484; 85025; 85610; 85730; 87635; 93005; 93010; 93306; 96372; 96374; 96375; 99283; 99284; G0378; J1940

== ENCOUNTER → 2020-04-13 11:04 | Outpatient (CLI) | payer MEDICARE, OTHER, SELFPAY ==
[2020-03-23 17:11] VITALS: BMI 28.1
[2020-04-13 12:16] LABS: COVID19 -Nasal RAPID Negative (Negative)
== END ==
PROVIDERS: PCP Family Medicine; Visit Provider Physician Assistant
DX: Z01.812 Encounter for preprocedural laboratory examination (principal); Z20.828 Contact with and (suspected) exposure to other viral communicable diseases
CPT/HCPCS: 87635; C9803

== ENCOUNTER → 2020-05-04 15:01 | Outpatient (CLI) | payer MEDICARE, OTHER, SELFPAY ==
[2020-03-23 17:11] VITALS: BMI 28.1
[2020-05-04 16:38] LABS: COVID19 -Nasal RAPID Negative (Negative)
== END ==
PROVIDERS: PCP Family Medicine; Visit Provider Physician Assistant
DX: Z20.822 Contact with and (suspected) exposure to COVID-19 (principal)
CPT/HCPCS: 87635; C9803

== ENCOUNTER → 2020-05-06 10:21 | Outpatient (CLI) | payer MEDICARE, OTHER, SELFPAY ==
[2020-03-23 17:11] VITALS: BMI 28.1
--- NOTE | 2020-05-06 | DI.NM.S_ITS ---
PROCEDURE: DC ANDRAE PERF SPECT R&S TREADMILL EXERCISE Rest and pharmacological stress myocardial perfusion SPECT with gated imaging and ejection fraction RADIOPHARMACEUTICAL: 10.1 mCi Tc-99m tetrafosmin IV at rest and 27.0 mCi Tc-99m tetrafosmin IV at peak effect of pharmacological stress. Mth-byj-ocvqlijy was performed. INDICATIONS: Essential (primary) hypertension TECHNIQUE: Radiopharmaceutical was injected at peak stress test, and also at rest. SPECT images were obtained. SPECT myocardial perfusion images were displayed in short axis, horizontal long axis, and vertical long axis views. Gated images were reviewed using [email or web address] software. COMPARISON: None. CARDIAC STRESS: The patient exercised for 4 minutes and 3 seconds, reaching 110% of maximum predicted heart rate. Slightly reduced exercise tolerance (7.0 METs, LAUREL +5%). Hemodynamic data: There is normal blood pressure and heart rate response to exercise stress. Symptoms: The patient denied anginal chest pain. EKG: Resting ECG showed sinus rhythm and non-specific ST-T changes. With exercise, there were mild horizontal ST depressions in the inferior and anterolateral leads. Frequent PACs and PVCs. FINDINGS: Raw data: There is good myocardial uptake of radiotracer. No significant motion artifacts. Clfu-ju-vvrvr ratio is 0.28 (normal is less than 0.38 for tetrafosmin tracer). Left ventricle function: Gated images demonstrate normal left ventricular wall thickening. No segmental wall motion abnormalities. No transient ischemic dilation; TID is 1.22 (normal less than 1.3). Left ventricle resting end diastolic volume is 70 mL. Left ventricle stress ejection fraction is 74%; normal range is above 45%. Myocardial perfusion: There is a mildly intense fixed apical defect that improves significantly with prone imaging, suggesting attenuation artifact than true infarct. No ischemia. IMPRESSION: Low risk, probbly normal treadmill nuclear stress test. 1) There is a mildly intense fixed apical defect that improves significantly with prone imaging, suggesting attenuation artifact than true infarct. No ischemia. 2) Normal left ventricular size, wall motion, and systolic function (EF post stress 74%). 3) ECG non-diagnostic due to baseline ST changes. 4) No angina during the study. 5) Slightly reduced exercise tolerance (7.0 METs, LAUREL +5%). Target heart rate achieved. Appropriate BP response to exercise. 6) Compared to the nuclear stress test done 05/31/2019, no significant change. Dictated by: Daniela Bryan MD on 05/11/2020 at 17:05 Approved by: Daniela Bryan MD on 05/11/2020 at 17:10
--- NOTE | 2020-05-06 15:11 | PM.EVENT ---
Event Note Date Patient Seen: 05/06/20 Time Patient Seen: 15:11 Event Note: Patient presented to [facility] for exercise nuclear stress test. Upon arrival, patient was noted to be in atrial fibrillation with RVR in the 130-154 range. She has a hx of atrial fibrillation. Patient reports she has been holding her Atenolol 25 mg for the past 72 hours. She is currently asymptomatic. She has been instructed to resume her atenolol 25 mg daily and to hold her atenolol the morning of her stress test. Leticia of Dr. Mahan's notified of patient's status. Her exercise stress test will be rescheduled.
== END ==
PROVIDERS: PCP Family Medicine; Referring Provider Family Medicine; Visit Provider Family Medicine
DX: I10 Essential (primary) hypertension (principal); Z53.09 Procedure and treatment not carried out because of other contraindication; I48.91 Unspecified atrial fibrillation
CPT/HCPCS: 78452; 93017; A9502; J2785

== ENCOUNTER 2020-05-07 09:56 | Inpatient (IN) | payer MEDICARE, OTHER, SELFPAY ==
[2020-03-23 17:11] VITALS: BMI 28.1
[2020-05-07] VITALS (32 sets, daily range): BP systolic 113–173; BP diastolic 58–80; PULSE 57–126; RESP 14–37; TEMP 36.2–37.4; O2SAT 94–99; BMI 28.1; BMI 27.8
--- NOTE | 2020-05-07 10:08 | DI.RAD.S_ITS ---
PROCEDURE: XR CHEST 1V INDICATIONS: chest pain TECHNIQUE: One view of the chest was acquired. COMPARISON: [facility], CR, XR CHEST 1V, 03/23/2020, 13:21. FINDINGS: Surgical changes and devices: None. Lungs and pleura: Lungs are clear. No pleural effusions or pneumothorax. Mediastinum: Mediastinal contours appear normal. Heart size is normal. The aorta has atherosclerotic calcifications. Bones and chest wall: No suspicious bony lesions. Overlying soft tissues appear unremarkable. IMPRESSION: No acute cardiopulmonary abnormality. Dictated by: Angel Espinoza M.D. on 05/07/2020 at 10:29 Approved by: Angel Espinoza M.D. on 05/07/2020 at 10:30
--- NOTE | 2020-05-07 10:13 | PC.NURSE ---
Pt has hx afib on xarelto,pt tells us that her watch takes EKGs and she has been in afib for 2 days. Pt had a stress test yesterday and was also told she was in afib,to go home and take her atenolol. Pt here today because she states it has been going on for too long.
[2020-05-07 10:19] LABS: Add Manual Diff / Slide Review NO; Basophils Absolute Auto 100 /uL (0-100); Basophils Percent Auto 0.8 % (0-2); Eosinophils Absolute Auto 200 /uL (0-450); Eosinophils Percent Auto 1.5 % (2-4); Hematocrit 34.9 % (36-46); Hemoglobin 11.3 g/dL (12.0-16.0); Lymphocytes Absolute Auto 2400 /uL (1100-4500); Mean Corpuscular HGB Conc 32.4 % (30-36); Mean Corpuscular Hemoglobin 28.5 PG (26-34); Mean Corpuscular Volume 87.9 fL (80-100); Monocytes Absolute Auto 1500 /uL (0-900); Monocytes Percent Auto 11.7 % (3-14); Neutrophils Absolute Auto 8500 /uL (1500-7000); Platelet Count 240 X10^3/uL (150-400); Red Blood Cell Count 3.98 X10^6/uL (4.0-5.2); Red Cell Distribution Width 14.8 % (11.6-14.8); White Blood Cell Count 12.6 X10^3/uL (4.5-11.0)
[2020-05-07 10:28] LABS: INR 1.1 (0.9-1.3)
[2020-05-07 10:30] LABS: PTT Partial Thromboplastin Tim 31 SECONDS (26.4-36.2)
[2020-05-07 10:31] LABS: Alanine Aminotransferase 15 IU/L (<35); Albumin Globulin Ratio 1.3 (1.0-2.8); Alkaline Phosphatase 76 U/L (38-126); Aspartate Aminotransferase 26 IU/L (14-36); BUN Creatinine Ratio 26.9 (6-22); Bilirubin Total 0.6 mg/dL (0.2-1.3); Blood Urea Nitrogen 42 mg/dL (7-17); Calcium 9.1 mg/dL (8.4-10.2); Carbon Dioxide 29 mmol/L (22-32); Chloride 102 mmol/L (98-107); Creatine Kinase 25 U/L (30-135); Estimated Glomerular Filt Rate 31.5 mL/min (>60); Globulin 3.1 g/dL (1.7-4.1); Glucose 131 mg/dL (80-110); HEMOLYSIS < 15 (0-50); Lipase 218 U/L (23-300); Potassium 3.6 mmol/L (3.4-5.1); Sodium 137 mmol/L (137-145); Total Protein 7.1 g/dL (6.3-8.2)
--- NOTE | 2020-05-07 10:34 | ED_ITS ---
HPI - Arrhythmia/Palpitations <PIERO Gutierrez - Last Filed: 05/07/20 12:47> General Chief Complaint: Arrhythmia/Palpitations Stated Complaint: afib xcouple days Time Seen by Provider: 05/07/20 10:09 Source: patient Mode of arrival: Ambulatory Limitations: no limitations History of Present Illness HPI narrative: This is a 84 year female, nonsmoker, who has past medical history significant for AFib and currently taking Xarelto, hypertension, hypothyroidism, hyperlipidemia, gout, insulin-dependent diabetes presents to ED with chief complain of mild short of breath and fluttering in her chest since yesterday and when she checked her wrist watch which showed AFib rate from 105-120's. Patient denies chest pain, dizziness, cold sweats, nausea or vomiting. Patient had stress test scheduled yesterday but her heart rate was in 100s so she was instructed to take additional atenolol and she had taken 2 additional doses but heart rate did not improve significantly so stress test was canceled and rescheduled. Patient reports she had missed 1 dose of Xarelto a couple of days ago and thinks she has paroxysmal AFib stating I am usually fine. Patient was admitted to hospital on 03/23/2020 for Afib with RVR overnight. PCP Dr. Mahan and portfolio administrator Dr. Crum but has not seen him for over a year. Echo done on 05/28/2019: EF 60-65%, mild to moderate mitral regurgitation, mild aortic stenosis and regurgitation. Related Data Home Medications Medication Instructions Recorded Confirmed Lantus U-100 Insulin 24 unit SQ QAM #0 10/16/12 05/07/20 ezetimibe [Zetia] 10 mg PO DAILY #0 10/16/12 05/07/20 insulin lispro [Humalog U-100 See Protocol SUBCUT DIRECTED 05/31/16 05/07/20 Insulin] PRN #0 atenolol 50 mg PO DAILY 01/25/18 03/24/20 chlorthalidone 25 mg PO DAILY 01/25/18 05/07/20 allopurinol 100 mg PO QPM 08/08/18 03/24/20 levothyroxine 125 mcg PO DAILY 08/08/18 05/07/20 prednisone 5 mg PO DAILY 08/08/18 05/07/20 rivaroxaban 15 mg PO DAILY 08/08/18 05/07/20 colchicine [Colcrys] See Rx Instructions .ROUTE 01/28/19 05/07/20 .COMPLEX PRN MDD 3 tab meclizine 12.5 - 25 mg PO BEDTIME PRN 01/28/19 05/07/20 Lantus Solostar U-100 Insulin 18 unit SUBCUT QPM 05/28/19 05/07/20 acetaminophen 325 mg PO PRN PRN 05/28/19 03/23/20 flash glucose sensor [FreeStyle 05/28/19 03/24/20 Thomas 14 Day Sensor] prednisone 3 mg PO DAILY 05/28/19 05/07/20 hydralazine 25 mg PO DAILY 05/07/20 05/07/20 Previous Rx's Medication Instructions Recorded amlodipine [Norvasc] 10 mg PO DAILY #30 tab 05/31/19 rosuvastatin 5 mg PO BEDTIME #30 tab 05/31/19 Allergies Allergy/AdvReac Type Severity Reaction Status Date / Time kiwi Allergy Severe ANAPHYLAXIS Verified 03/23/20 12:53 Sulfa (Sulfonamide Allergy Severe unknown Verified 03/23/20 12:53 Antibiotics) meperidine AdvReac Severe I GO NUTS Verified 03/23/20 12:53 morphine AdvReac Severe DIZZY Verified 03/23/20 12:53 Patient History <PIERO Gutierrez - Last Filed: 05/07/20 12:47> Medical History (Updated 05/07/20 @ 11:53 by PIERO Gutierrez) HTN (hypertension) HTN (hypertension) Hypoglycemia Palpitations Paroxysmal atrial fibrillation SOB (shortness of breath) Surgical History No pertinent past surgical history Social History household members: children Smoking Status: Never smoker alcohol intake: current Smoking Status: Never smoker alcohol intake frequency: 0-2 drinks per day Alcohol type: hard liquor Substance Use Type: does not use Exam <PIERO Gutierrez - Last Filed: 05/07/20 12:47> Narrative Exam Narrative: GEN: Alert, oriented x 3, well appearing and nourished, and in no acute distress. Head: Normal cephalic, atraumatic. No scalp or temporal tenderness, palpable mass or rash. EYES: Pupils are equal, round, and reactive to light and accommodation. Extraocular muscles are intact bilaterally. There is no subconjunctival hemorrhage, exudate and sclera non-icteric. ENT: Hearing grossly intact. Airway patent. Neck: Trachea in midline. No JVD, non-tender without lymphadenopathy. No masses or thyroid megaly. Supple, non-tender and no meningeal signs. CARDIAC: Irregular tachy rate and rhythm with murmurs. No gallops, or rubs. No chest wall tenderness. Plus one bilateral lower leg edema. No cyanosis or pallor. Capillary refill is less than 2 seconds. RESPIRATORY: Lungs are clear to auscultate bilaterally. No cough, wheezes, rales, or rhonchi. No stridor, respiratory distress, increase work of breathing, or accessary muscle used. ABD: Abdomen soft, nontender and non-distended. No guarding or rebound tenderness to palpate. Bowel sounds are normal in all 4 quadrants. There is no palpable masses or organomegaly. EXT: Full painless ROM of all extremities with no loss of sensation, strength, effusion or edema. SKIN: Warm, dry, normal color for patient. No erythema, lesions or rash over visible areas. BACK: Nontender without deformity or crepitance. No flank tenderness. NEUROLOGICAL: Alert and oriented to place, time and person. Sensation and motor function intact bilaterally. No facial droops, dysphasia. PSYCHIATRIC: Good judgement and reason, without hallucinations, abnormal affect or abnormal behaviors during the examination. Patient is not suicidal. Initial Vital Signs Initial Vital Signs: Vital Signs Pulse Rate 113 H 05/07/20 10:04 Respiratory Rate 05/07/20 10:04 Pulse Oximetry 99 05/07/20 10:04 <Bebo Rock DO - Last Filed: 05/07/20 13:25> Initial Vital Signs Initial Vital Signs: Vital Signs Pulse Rate 113 H 05/07/20 10:04 Respiratory Rate 19 05/07/20 10:04 Pulse Oximetry 99 05/07/20 10:04 Scores <PIERO Gutierrez - Last Filed: 05/07/20 12:47> GCS Smith coma scale eye opening: Spontaneous Smith coma scale verbal response: Orientated [place] coma scale motor response: Obey commands Smith coma scale total score: 15 Course <Adrian Jose J-JESUS NathanP - Last Filed: 05/07/20 12:47> Orders Ordered: ED Orders 05/07/20 10:05 Complete Blood Count AUTO DIFF Stat Comprehensive Metabolic Panel Stat Lipase Stat NT-proBNP (BNP-Adult 18+) Stat Partial Thromboplastin Time Stat Prothrombin Time INR Stat Thyroid Stimulating Hormone Stat Troponin & CK Cardiac Panel Stat 05/07/20 10:08 XR chest 1V Stat EKG-12 Lead Stat 05/07/20 11:20 COVID19 Stat 05/07/20 11:24 Magnesium Stat 05/07/20 16:00 Troponin & CK Cardiac Panel Stat DILTIAZEM (Diltiazem 125 Mg/125 Ml-D5w) 125 mg in 125 mls @ 5 mls/hr IV TITRATE MARIAA; Protocol Last Titration: 05/07/20 13:02 Dose: 5 mg/hr, 5 mls/hr Documented by: Admin: 05/07/20 12:28 Dose: 5 mg/hr, 5 mls/hr Documented by: MAKAYLA Discontinued Medications Diltiazem HCl (Diltiazem 5 Mg/Ml Sdv) 20 mg IV NOW ONE Stop: 05/07/20 11:46 Last Admin: 05/07/20 12:03 Dose: 20 mg Documented by: MAKAYLA Furosemide (Furosemide 40 Mg/4 Ml Vial) 40 mg IV NOW ONE Stop: 05/07/20 11:46 Last Admin: 05/07/20 12:04 Dose: 40 mg Documented by: MAKAYLA Metoprolol Tartrate (Metoprolol Tartrate 5 Mg/5 Ml Inj) 5 mg IV NOW ONE Stop: 05/07/20 10:48 Last Admin: 05/07/20 10:58 Dose: 5 mg Documented by: TOR Potassium Chloride (Potassium Chloride 20 Meq Tab) 40 meq PO NOW ONE Stop: 05/07/20 11:46 Last Admin: 05/07/20 12:04 Dose: 40 meq Documented by: MAKAYLA Reevaluation(s) Reevaluation #1: No improvement after metoprolol 5 mg IV for rate or rhythm cont rol for AFib with RVR. Time: 11:12 Reevaluation #2: HR controlled to 70-80's after Cardizem bolus and the patient started on drip at 5mg/hr. She still remains in afib. Time: 12:14 Consultations Consultation #1: Dr. Hood called back and she kindly accepted the patient's care. Requested Cardizem, Lasix IV 40 mg, potassium 40 mEq p.o. and post 6 hour 2nd cardiac enzymes to be drawn. Time: 11:50 Vital Signs Vital signs: Vital Signs - 8 hr 05/07/20 10:04 05/07/20 10:05 05/07/20 10:07 Temperature 97.2 F L Pulse Rate 113 H 126 H 115 H Respiratory Rate 19 18 25 H Blood Pressure 161/78 H 161/78 H Pulse Oximetry 99 99 99 05/07/20 10:30 05/07/20 11:00 05/07/20 11:30 Temperature Pulse Rate 113 H 111 H 111 H Respiratory Rate 23 23 18 Blood Pressure 144/67 H 149/69 H Pulse Oximetry 99 98 98 05/07/20 11:31 Temperature Pulse Rate 107 H Respiratory Rate 20 Blood Pressure 173/74 H Pulse Oximetry 97 <Bebo Rock, - Last Filed: 05/07/20 13:25> Orders Ordered: ED Orders 05/07/20 10:05 Complete Blood Count AUTO DIFF Stat Comprehensive Metabolic Panel Stat Lipase Stat NT-proBNP (BNP-Adult 18+) Stat Partial Thromboplastin Time Stat Prothrombin Time INR Stat Thyroid Stimulating Hormone Stat Troponin & CK Cardiac Panel Stat 05/07/20 10:08 XR chest 1V Stat EKG-12 Lead Stat 05/07/20 11:20 COVID19 Stat 05/07/20 11:24 Magnesium Stat 05/07/20 16:00 Troponin & CK Cardiac Panel Stat DILTIAZEM (Diltiazem 125 Mg/125 Ml-D5w) 125 mg in 125 mls @ 5 mls/hr IV TITRATE MARIAA; Protocol Last Titration: 05/07/20 13:02 Dose: 5 mg/hr, 5 mls/hr Documented by: Admin: 05/07/20 12:28 Dose: 5 mg/hr, 5 mls/hr Documented by: MAKAYLA Discontinued Medications Diltiazem HCl (Diltiazem 5 Mg/Ml Sdv) 20 mg IV NOW ONE Stop: 05/07/20 11:46 Last Admin: 05/07/20 12:03 Dose: 20 mg Documented by: MAKAYLA Furosemide (Furosemide 40 Mg/4 Ml Vial) 40 mg IV NOW ONE Stop: 05/07/20 11:46 Last Admin: 05/07/20 12:04 Dose: 40 mg Documented by: MAKAYLA Metoprolol Tartrate (Metoprolol Tartrate 5 Mg/5 Ml Inj) 5 mg IV NOW ONE Stop: 05/07/20 10:48 Last Admin: 05/07/20 10:58 Dose: 5 mg Documented by: TOR Potassium Chloride (Potassium Chloride 20 Meq Tab) 40 meq PO NOW ONE Stop: 05/07/20 11:46 Last Admin: 05/07/20 12:04 Dose: 40 meq Documented by: MAKAYLA Vital Signs Vital signs: Vital Signs - 8 hr 05/07/20 10:04 05/07/20 10:05 05/07/20 10:07 Temperature 97.2 F L Pulse Rate 113 H 126 H 115 H Respiratory Rate 19 18 25 H Blood Pressure 161/78 H 161/78 H Pulse Oximetry 99 99 99 05/07/20 10:30 05/07/20 11:00 05/07/20 11:30 Temperature Pulse Rate 113 H 111 H 111 H Respiratory Rate 23 23 18 Blood Pressure 144/67 H 149/69 H Pulse Oximetry 99 98 98 05/07/20 11:31 Temperature Pulse Rate 107 H Respiratory Rate 20 Blood Pressure 173/74 H Pulse Oximetry 97 MDM - Arrhythmia/Palpitations <Adrian PIERO Saunders - Last Filed: 05/07/20 12:47> Differential Diagnosis Differential diagnosis: Likely artial fibrillation (With RVR) and other (Heart failure, ACS) Medical Records Attestation: I reviewed the patient's medical records. Lab Data Attestation: I reviewed the patient's lab results. Result diagrams: 05/07/20 10:05 05/07/20 10:05 Labs: Lab Results 05/07/20 05/07/20 05/07/20 Range/Units 10:05 10:05 10:05 WBC 12.6 H (4.5-11.0) X10^3/uL RBC 3.98 L (4.0-5.2) X10^6/uL Hgb 11.3 L (12.0-16.0) g/dL Hct 34.9 L (36-46) % MCV 87.9 (80-100) fL MCH 28.5 (26-34) PG MCHC 32.4 (30-36) % RDW 14.8 (11.6-14.8) % Plt Count 240 (150-400) X10^3/uL Neut % (Auto) 67.0 (50-75) % Lymph % (Auto) 19.0 L (25-40) % [place] % (Auto) 11.7 (3-14) % Eos % (Auto) 1.5 L (2-4) % Baso % (Auto) 0.8 (0-2) % Neut # (Auto) 8500 H (9363-8472) /uL Lymph # (Auto) 2400 (0564-4583) /uL [place] # (Auto) 1500 H (0-900) /uL Eos # (Auto) 200 (0-450) /uL Baso # (Auto) 100 (0-100) /uL PT 13.0 H (10.1-12.7) SECONDS INR 1.1 (0.9-1.3) APTT 31 (26.4-36.2) SECONDS Sodium 137 (137-145) mmol/L Potassium 3.6 (3.4-5.1) mmol/L Chloride 102 (98-107) mmol/L Carbon Dioxide 29 (22-32) mmol/L BUN 42 H (7-17) mg/dL Creatinine 1.56 H (0.52-1.04) mg/dL Estimated GFR 31.5 L (>60) mL/min BUN/Creatinine Ratio 26.9 H (6-22) Glucose 131 H (80-110) mg/dL Calcium 9.1 (8.4-10.2) mg/dL Magnesium (1.6-2.3) mg/dL Total Bilirubin 0.6 (0.2-1.3) mg/dL AST 26 (14-36) IU/L ALT 15 (<35) IU/L Alkaline Phosphatase 76 (38-126) U/L Total Creatine Kinase 25 L (30-135) U/L CK-MB (CK-2) TNP CK-MB (CK-2) Rel Index TNP Troponin I 0.050 H (0.01-0.034) ng/mL NT-Pro-B Natriuret Pep (<450) pg/mL Total Protein 7.1 (6.3-8.2) g/dL Albumin 4.0 (3.5-5.0) g/dL Globulin 3.1 (1.7-4.1) g/dL Albumin/Globulin Ratio 1.3 (1.0-2.8) Lipase 218 (23-300) U/L TSH (0.47-4.68) uIU/mL SARS-CoV-2 (PCR) (Negative) 05/07/20 05/07/20 05/07/20 Range/Units 10:05 10:05 11:20 WBC (4.5-11.0) X10^3/uL RBC (4.0-5.2) X10^6/uL Hgb (12.0-16.0) g/dL Hct (36-46) % MCV (80-100) fL MCH (26-34) PG MCHC (30-36) % RDW (11.6-14.8) % Plt Count (150-400) X10^3/uL Neut % (Auto) (50-75) % Lymph % (Auto) (25-40) % [place] % (Auto) (3-14) % Eos % (Auto) (2-4) % Baso % (Auto) (0-2) % Neut # (Auto) (0066-8953) /uL Lymph # (Auto) (6182-4587) /uL [place] # (Auto) (0-900) /uL Eos # (Auto) (0-450) /uL Baso # (Auto) (0-100) /uL PT (10.1-12.7) SECONDS INR (0.9-1.3) APTT (26.4-36.2) SECONDS Sodium (137-145) mmol/L Potassium (3.4-5.1) mmol/L Chloride (98-107) mmol/L Carbon Dioxide (22-32) mmol/L BUN (7-17) mg/dL Creatinine (0.52-1.04) mg/dL Estimated GFR (>60) mL/min BUN/Creatinine Ratio (6-22) Glucose (80-110) mg/dL Calcium (8.4-10.2) mg/dL Magnesium (1.6-2.3) mg/dL Total Bilirubin (0.2-1.3) mg/dL AST (14-36) IU/L ALT (<35) IU/L Alkaline Phosphatase (38-126) U/L Total Creatine Kinase (30-135) U/L CK-MB (CK-2) CK-MB (CK-2) Rel Index Troponin I (0.01-0.034) ng/mL NT-Pro-B Natriuret Pep 5520 H (<450) pg/mL Total Protein (6.3-8.2) g/dL Albumin (3.5-5.0) g/dL Globulin (1.7-4.1) g/dL Albumin/Globulin Ratio (1.0-2.8) Lipase (23-300) U/L TSH 0.153 L (0.47-4.68) uIU/mL SARS-CoV-2 (PCR) Negative (Negative) 05/07/20 Range/Units 11:24 WBC (4.5-11.0) X10^3/uL RBC (4.0-5.2) X10^6/uL Hgb (12.0-16.0) g/dL Hct (36-46) % MCV (80-100) fL MCH (26-34) PG MCHC (30-36) % RDW (11.6-14.8) % Plt Count (150-400) X10^3/uL Neut % (Auto) (50-75) % Lymph % (Auto) (25-40) % [place] % (Auto) (3-14) % Eos % (Auto) (2-4) % Baso % (Auto) (0-2) % Neut # (Auto) (6248-7006) /uL Lymph # (Auto) (7271-6162) /uL [place] # (Auto) (0-900) /uL Eos # (Auto) (0-450) /uL Baso # (Auto) (0-100) /uL PT (10.1-12.7) SECONDS INR (0.9-1.3) APTT (26.4-36.2) SECONDS Sodium (137-145) mmol/L Potassium (3.4-5.1) mmol/L Chloride (98-107) mmol/L Carbon Dioxide (22-32) mmol/L BUN (7-17) mg/dL Creatinine (0.52-1.04) mg/dL Estimated GFR (>60) mL/min BUN/Creatinine Ratio (6-22) Glucose (80-110) mg/dL Calcium (8.4-10.2) mg/dL Magnesium 2.2 (1.6-2.3) mg/dL Total Bilirubin (0.2-1.3) mg/dL AST (14-36) IU/L ALT (<35) IU/L Alkaline Phosphatase (38-126) U/L Total Creatine Kinase (30-135) U/L CK-MB (CK-2) CK-MB (CK-2) Rel Index Troponin I (0.01-0.034) ng/mL NT-Pro-B Natriuret Pep (<450) pg/mL Total Protein (6.3-8.2) g/dL Albumin (3.5-5.0) g/dL Globulin (1.7-4.1) g/dL Albumin/Globulin Ratio (1.0-2.8) Lipase (23-300) U/L TSH (0.47-4.68) uIU/mL SARS-CoV-2 (PCR) (Negative) Imaging Data Chest x-ray: Radiologist's Impresson: [address] [id number] ReportSigned Patient: Jackie Orta R#: [id number]: 5Acct:[id number]/Sex: 84 / FDate of Service: 05/07/20Loc: EDAccession Number: [id number] Procedure: XR chest 1V Ordering Provider: Bebo Rock D.O. PROCEDURE: XR CHEST 1V INDICATIONS: chest pain TECHNIQUE: One view of the chest was acquired. COMPARISON: [facility], , XR CHEST 1V, 03/23/2020, 13:21. FINDINGS: Surgical changes and devices: None. Lungs and pleura: Lungs are clear. No pleural effusions or pneumothorax. Mediastinum: Mediastinal contours appear normal. Heart size is normal. The aorta has atherosclerotic calcifications. Bones and chest wall: No suspicious bony lesions. Overlying soft tissues appear unremarkable. IMPRESSION: No acute cardiopulmonary abnormality. Dictated by: Angel Espinoza M.D. on 05/07/2020 at 10:29 Approved by: Angel Espinoza M.D. on 05/07/2020 at 10:30 ECG Data Attestation: I personally reviewed and interpreted this ECG as follows: Prior ECG tracings: available for review Interpretation: Afib with RVR rate at 109 Normal [place]. MO interval *, QRS duration 88, QT/QTC 288/[address] in lead anterolateral, inferior leads. MDM Narrative Medical decision making narrative: This is a 84 year female who has history of AFib and currently takes rivaroxaban daily presents to ED with at least 2 day duration of AFib rate in 120s with mild short of breath and bilateral lower extremity edema. Patient reports she had skipped 1 dose of anticoagulant a few days ago and is not meeting guideline for cardioversion. Patient had to reschedule for stress test after she had another episode 2 months ago and was admitted to hospital overnight. Patient denies other cardiac related symptoms. EKG shows AFib rate in 109 with anterolateral, inferior ischemia which is similar to previous EKG last year. Troponin is 0.05 today which is slightly elevated. Patient has history of decreased kidney function and today's creatinine is 1.56 and GFR of 31.5 with BUN of 42 which use not far from patien t's baseline. ProBNP today is 5530 which is much above her base line in 1300. Chest x-ray does not show overt cardiomegaly. Metoprolol IV did not improve AFib rate or rhythm. Patient started on Cardizem which improved her heart rate shortly after and she is started on Cardizem drip. She will be admitted to hospital for trending cardiac enzymes, AFib with RVR rate/rhythm control, and possible further cardiac workup and patient agrees with treatment plan. Dr. Hood kindly accepted patient's care. <Bebo Rock, DO - Last Filed: 05/07/20 13:25> Lab Data Labs: Lab Results 05/07/20 05/07/20 05/07/20 Range/Units 10:05 10:05 10:05 WBC 12.6 H (4.5-11.0) X10^3/uL RBC 3.98 L (4.0-5.2) X10^6/uL Hgb 11.3 L (12.0-16.0) g/dL Hct 34.9 L (36-46) % MCV 87.9 (80-100) fL MCH 28.5 (26-34) PG MCHC 32.4 (30-36) % RDW 14.8 (11.6-14.8) % Plt Count 240 (150-400) X10^3/uL Neut % (Auto) 67.0 (50-75) % Lymph % (Auto) 19.0 L (25-40) % [place] % (Auto) 11.7 (3-14) % Eos % (Auto) 1.5 L (2-4) % Baso % (Auto) 0.8 (0-2) % Neut # (Auto) 8500 H (0315-5358) /uL Lymph # (Auto) 2400 (3970-1190) /uL [place] # (Auto) 1500 H (0-900) /uL Eos # (Auto) 200 (0-450) /uL Baso # (Auto) 100 (0-100) /uL PT 13.0 H (10.1-12.7) SECONDS INR 1.1 (0.9-1.3) APTT 31 (26.4-36.2) SECONDS Sodium 137 (137-145) mmol/L Potassium 3.6 (3.4-5.1) mmol/L Chloride 102 (98-107) mmol/L Carbon Dioxide 29 (22-32) mmol/L BUN 42 H (7-17) mg/dL Creatinine 1.56 H (0.52-1.04) mg/dL Estimated GFR 31.5 L (>60) mL/min BUN/Creatinine Ratio 26.9 H (6-22) Glucose 131 H (80-110) mg/dL Calcium 9.1 (8.4-10.2) mg/dL Magnesium (1.6-2.3) mg/dL Total Bilirubin 0.6 (0.2-1.3) mg/dL AST 26 (14-36) IU/L ALT 15 (<35) IU/L Alkaline Phosphatase 76 (38-126) U/L Total Creatine Kinase 25 L (30-135) U/L CK-MB (CK-2) TNP CK-MB (CK-2) Rel Index TNP Troponin I 0.050 H (0.01-0.034) ng/mL NT-Pro-B Natriuret Pep (<450) pg/mL Total Protein 7.1 (6.3-8.2) g/dL Albumin 4.0 (3.5-5.0) g/dL Globulin 3.1 (1.7-4.1) g/dL Albumin/Globulin Ratio 1.3 (1.0-2.8) Lipase 218 (23-300) U/L TSH (0.47-4.68) uIU/mL SARS-CoV-2 (PCR) (Negative) 05/07/20 05/07/20 05/07/20 Range/Units 10:05 10:05 11:20 WBC (4.5-11.0) X10^3/uL RBC (4.0-5.2) X10^6/uL Hgb (12.0-16.0) g/dL Hct (36-46) % MCV (80-100) fL MCH (26-34) PG MCHC (30-36) % RDW (11.6-14.8) % Plt Count (150-400) X10^3/uL Neut % (Auto) (50-75) % Lymph % (Auto) (25-40) % [place] % (Auto) (3-14) % Eos % (Auto) (2-4) % Baso % (Auto) (0-2) % Neut # (Auto) (4822-8824) /uL Lymph # (Auto) (9289-3438) /uL [place] # (Auto) (0-900) /uL Eos # (Auto) (0-450) /uL Baso # (Auto) (0-100) /uL PT (10.1-12.7) SECONDS INR (0.9-1.3) APTT (26.4-36.2) SECONDS Sodium (137-145) mmol/L Potassium (3.4-5.1) mmol/L Chloride (98-107) mmol/L Carbon Dioxide (22-32) mmol/L BUN (7-17) mg/dL Creatinine (0.52-1.04) mg/dL Estimated GFR (>60) mL/min BUN/Creatinine Ratio (6-22) Glucose (80-110) mg/dL Calcium (8.4-10.2) mg/dL Magnesium (1.6-2.3) mg/dL Total Bilirubin (0.2-1.3) mg/dL AST (14-36) IU/L ALT (<35) IU/L Alkaline Phosphatase (38-126) U/L Total Creatine Kinase (30-135) U/L CK-MB (CK-2) CK-MB (CK-2) Rel Index Troponin I (0.01-0.034) ng/mL NT-Pro-B Natriuret Pep 5520 H (<450) pg/mL Total Protein (6.3-8.2) g/dL Albumin (3.5-5.0) g/dL Globulin (1.7-4.1) g/dL Albumin/Globulin Ratio (1.0-2.8) Lipase (23-300) U/L TSH 0.153 L (0.47-4.68) uIU/mL SARS-CoV-2 (PCR) Negative (Negative) 05/07/20 Range/Units 11:24 WBC (4.5-11.0) X10^3/uL RBC (4.0-5.2) X10^6/uL Hgb (12.0-16.0) g/dL Hct (36-46) % MCV (80-100) fL MCH (26-34) PG MCHC (30-36) % RDW (11.6-14.8) % Plt Count (150-400) X10^3/uL Neut % (Auto) (50-75) % Lymph % (Auto) (25-40) % [place] % (Auto) (3-14) % Eos % (Auto) (2-4) % Baso % (Auto) (0-2) % Neut # (Auto) (4442-0726) /uL Lymph # (Auto) (7076-4231) /uL [place] # (Auto) (0-900) /uL Eos # (Auto) (0-450) /uL Baso # (Auto) (0-100) /uL PT (10.1-12.7) SECONDS INR (0.9-1.3) APTT (26.4-36.2) SECONDS Sodium (137-145) mmol/L Potassium (3.4-5.1) mmol/L Chloride (98-107) mmol/L Carbon Dioxide (22-32) mmol/L BUN (7-17) mg/dL Creatinine (0.52-1.04) mg/dL Estimated GFR (>60) mL/min BUN/Creatinine Ratio (6-22) Glucose (80-110) mg/dL Calcium (8.4-10.2) mg/dL Magnesium 2.2 (1.6-2.3) mg/dL Total Bilirubin (0.2-1.3) mg/dL AST (14-36) IU/L ALT (<35) IU/L Alkaline Phosphatase (38-126) U/L Total Creatine Kinase (30-135) U/L CK-MB (CK-2) CK-MB (CK-2) Rel Index Troponin I (0.01-0.034) ng/mL NT-Pro-B Natriuret Pep (<450) pg/mL Total Protein (6.3-8.2) g/dL Albumin (3.5-5.0) g/dL Globulin (1.7-4.1) g/dL Albumin/Globulin Ratio (1.0-2.8) Lipase (23-300) U/L TSH (0.47-4.68) uIU/mL SARS-CoV-2 (PCR) (Negative) Discharge Plan Departure Patient Disposition: Admitted as Observation Clinical Impression: Atrial fibrillation with RVR Admit Date/Time: 05/07/20 11:52 Admit Provider: Liz Hood <Bebo Rock, - Last Filed: 05/07/20 13:25> Cosign ED Attending Cosignature Attestation: Dr Rock Co-Sign Statement: I was available for consultation during this patient's emergency department visit. This chart is signed by myself for administrative purposes only. I did not have direct contact with this patient during this visit. They were seen independently by the APC.
[2020-05-07 10:40] LABS: NT-proBNP (BNP-Adult 18+) 5520 pg/mL (<450)
[2020-05-07] MEDS: METOPROLOL TARTRATE 5 MG/5 ML INJ IV (10:58)
[2020-05-07 11:32] LABS: Magnesium 2.2 mg/dL (1.6-2.3)
[2020-05-07 11:34] LABS: Thyroid Stimulating Hormone 0.153 uIU/mL (0.47-4.68)
[2020-05-07] MEDS: dilTIAZem 5 MG/ML SDV 20 MG IV (12:03)
[2020-05-07] MEDS: POTASSIUM CHLORIDE 20 MEQ TAB 40 MEQ PO (12:04)
[2020-05-07] MEDS: FUROSEMIDE 40 MG/4 ML VIAL IV (12:04)
[2020-05-07 12:11] LABS: COVID19 -Nasal RAPID Negative (Negative)
[2020-05-07] MEDS: DILTIAZEM 125 MG/125 ML PIGGYBACK IV (12:28)
[2020-05-07] MEDS: INSULIN ASPART 100 UNIT/ML INSULN PEN SUBCUT ×3 (14:56→20:59)
--- NOTE | 2020-05-07 15:29 | PC.NURSE ---
Day Shift Note/Admit Patient arrived to room 231 from ER at about 1300, walked self from stretcher into room, SBA. Alert and oriented x3. Afib RVR in the 120s on arrival, diltiazem gtt titrated to 10 mg/hr, current rate is 15 mg/hr. Afib CVR at this time in the 70-80s. BP stable. Patient checking own blood sugar via own Thomas device to left upper arm. CBG 319. Dr. Hood notified and orders for insulin received and 7 units insulin given to pt (See emar). SpO2 94-95% on RA. Denies shortness of breath or pain. Oriented to room and to call light/bed/tv controls. Declines need to lock up valuables. Cell phone and electronic watch at bedside. Glasses on. Call light within reach.
[2020-05-07 16:26] LABS: Creatine Kinase 21 U/L (30-135)
[2020-05-07 16:39] LABS: Troponin I 0.027 ng/mL (0.01-0.034)
--- NOTE | 2020-05-07 19:22 | P.HP_ITS ---
History of Present Illness History of Present Illness Date Patient Seen: 05/07/20 Time Patient Seen: 19:22 Chief complaint: afib xcouple days Narrative: 84 year-old female with history of paroxysmal atrial fibrillation, insulin-dependent diabetes mellitus type 2, hypertension, hyperlipidemia, and hypothyroidism presents to the ED complaining of heart palpitations and mild shortness of breath x2 days. She wears an Apple watch and noticed that her heart rate was elevated in the 105-120 range. Patient was scheduled for an outpatient stress test yesterday but was unable to complete it because her heart rate was elevated. She had erroneously been instructed to stop her metoprolol 3 days prior to the stress test rather than just on the morning of the test. She had also skipped a dose of her xarelto two days ago. Last inpatient admission for atrial fibrillation with RVR was on 03/23/2020. 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 Crum. Denies chest pain. Vital signs upon admission to the ED included a temperature of 97.2?, pulse 113, respirations 19, blood pressure 161/72, O2 saturation 99% on room air. Workup significant for an elevated BNP 5520 (baseline 1300), low TSH at 0.153, mild anemia wtih a hemoglobin/hematocrit of 11.3/34.9, and elevated BUN/creatinine of 42/1.56 (near her baseline). Troponin I slightly elevated at 0.050. EKG showed atrial fibrillation with a rapid ventricular rate of [address] depression in the anterolateral and inferior leads, similar to a previous EKG 1 year ago. Patient was administered 5 mg of IV metoprolol with no improvement. She was not a candidate for cardioversion as she had recently skipped a Xarelto dose. Prior to transfer to the floor, she was given diltiazem 125 mg x1 and started on a drip with good effect. She was also administered 40 mg of IV Lasix and 40 meq of KCl. Past medical history: Diabetes mellitus type 2 Hypertension Hyperlipidemia Atrial fibrillation Hypothyroidism Polymyalgia rheumatica Migraine Depression IBS Past surgical history: Partial hysterectomy Cholecystectomy Family history: Father: [facility], coronary artery disease, hypertension Mother: Alcoholism, heart disease Siblings: Heart disease, depression, hyperlipidemia Social history: Retired. Patient History Medical History (Updated 05/07/20 @ 11:53 by PIERO Gutierrez) HTN (hypertension) HTN (hypertension) Hypoglycemia Palpitations Paroxysmal atrial fibrillation SOB (shortness of breath) Surgical History No pertinent past surgical history Family & Social History Social History: household members children Safety & Behavioral: Feels Safe in Current Yes Environment Been Physically Hurt or No Threatened By a Person Suicidal Ideation Description None Tobacco & Substance use: Smoking Status Never smoker alcohol intake current alcohol intake frequency 0-2 drinks per day Substance Use Type does not use Meds Home Medications and Allergies Home Medications Medication Instructions Recorded Confirmed Type ezetimibe [Zetia] 10 mg PO DAILY #0 10/16/12 05/07/20 History insulin lispro [Humalog U-100 See Protocol SUBCUT DIRECTED 05/31/16 05/07/20 History Insulin] PRN #0 atenolol 50 mg PO DAILY 01/25/18 05/07/20 History chlorthalidone 25 mg PO DAILY 01/25/18 05/07/20 History allopurinol 100 mg PO QPM 08/08/18 05/07/20 History levothyroxine 125 mcg PO DAILY 08/08/18 05/07/20 History prednisone 5 mg PO DAILY 08/08/18 05/07/20 History rivaroxaban 15 mg PO DAILY 08/08/18 05/07/20 History colchicine [Colcrys] See Rx Instructions .ROUTE 01/28/19 05/07/20 History .COMPLEX PRN MDD 3 tab meclizine 12.5 - 25 mg PO BEDTIME PRN 01/28/19 05/07/20 History Lantus Solostar U-100 Insulin 18 unit SUBCUT QPM 05/28/19 05/07/20 History acetaminophen 325 mg PO PRN PRN 05/28/19 05/07/20 History flash glucose sensor [FreeStyle 05/28/19 05/07/20 History Thomas 14 Day Sensor] prednisone 3 mg PO DAILY 05/28/19 05/07/20 History amlodipine [Norvasc] 10 mg PO DAILY #30 tab 05/31/19 05/07/20 Rx rosuvastatin 5 mg PO BEDTIME #30 tab 05/31/19 05/07/20 Rx hydralazine 25 mg PO DAILY 05/07/20 05/07/20 History insulin glargine [Lantus Solostar 2.5 unit SUBCUT QAM 05/07/20 05/07/20 History U-100 Insulin] Allergies Allergy/AdvReac Type Severity Reaction Status Date / Time kiwi Allergy Severe ANAPHYLAXIS Verified 03/23/20 12:53 Sulfa (Sulfonamide Allergy Severe unknown Verified 03/23/20 12:53 Antibiotics) meperidine AdvReac Severe I GO NUTS Verified 03/23/20 12:53 morphine AdvReac Severe DIZZY Verified 03/23/20 12:53 Review of Systems Review of Systems ROS: Yes All systems reviewed with the patient and are negative except as otherwise documented Exam Vital Signs (past 8 hours): - 05/07/20 11:30 05/07/20 11:31 05/07/20 12:00 Temperature Pulse Rate 111 H 107 H 105 H Respiratory Rate 18 20 17 Blood Pressure 173/74 H 150/74 H Pulse Oximetry 98 97 97 05/07/20 12:03 05/07/20 12:14 05/07/20 12:30 Temperature Pulse Rate 120 H 73 80 Respiratory Rate 27 H 37 H Blood Pressure 150/74 H 125/66 Pulse Oximetry 96 05/07/20 12:31 05/07/20 13:00 05/07/20 14:00 Temperature 97.6 F Pulse Rate 104 H 107 H 96 H Respiratory Rate 28 H 22 14 Blood Pressure 149/67 H 130/71 123/58 L Pulse Oximetry 97 96 05/07/20 15:00 05/07/20 16:00 05/07/20 16:58 Temperature Pulse Rate 113 H 85 73 Respiratory Rate 18 22 23 Blood Pressure 121/62 116/64 Pulse Oximetry 94 95 96 05/07/20 17:00 05/07/20 17:30 05/07/20 18:00 Temperature Pulse Rate 75 103 H 65 Respiratory Rate 29 H 33 H 24 Blood Pressure 127/78 130/60 Pulse Oximetry 96 97 98 05/07/20 18:30 05/07/20 19:03 Temperature Pulse Rate 60 57 L Respiratory Rate 22 23 Blood Pressure 136/73 Pulse Oximetry 97 97 Oxygen Delivery Method Room Air Oxygen Flow Rate 0 Narrative Exam Narrative: GENERAL: Alert and oriented, appearing stated age and in no acute distress. HEENT: Head normocephalic/atraumatic. LUNGS: Clear to ausculation bilaterally, no wheezes, rhonchi or rales. CV: Irregularly irregular with systolic murmur, no rubs or gallops. ABDOMEN: Soft, non-tender, non-distended, no organomegaly. Positive bowel sounds. EXTREMITIES: 1+ pitting edema to the bilateral shins NEURO: Cranial nerves II through XII grossly intact, no focal deficits. PSYCH: Alert and oriented x 3. SKIN: No concerning lesions. Objective Labs Result Diagrams: 05/07/20 10:05 05/07/20 10:05 Labs: Laboratory Results - last 24 hr 05/07/20 05/07/20 05/07/20 10:05 10:05 10:05 WBC 12.6 H RBC 3.98 L Hgb 11.3 L Hct 34.9 L MCV 87.9 MCH 28.5 MCHC 32.4 RDW 14.8 Plt Count 240 Neut % (Auto) 67.0 Lymph % (Auto) 19.0 L [place] % (Auto) 11.7 Eos % (Auto) 1.5 L Baso % (Auto) 0.8 Neut # (Auto) 8500 H Lymph # (Auto) 2400 [place] # (Auto) 1500 H Eos # (Auto) 200 Baso # (Auto) 100 PT 13.0 H INR 1.1 APTT 31 Sodium 137 Potassium 3.6 Chloride 102 Carbon Dioxide 29 BUN 42 H Creatinine 1.56 H Estimated GFR 31.5 L BUN/Creatinine Ratio 26.9 H Glucose 131 H Calcium 9.1 Magnesium Total Bilirubin 0.6 AST 26 ALT 15 Alkaline Phosphatase 76 Total Creatine Kinase 25 L CK-MB (CK-2) TNP CK-MB (CK-2) Rel Index TNP Troponin I 0.050 H NT-Pro-B Natriuret Pep Total Protein 7.1 Albumin 4.0 Globulin 3.1 Albumin/Globulin Ratio 1.3 Lipase 218 TSH Nasal Screen MRSA (PCR) SARS-CoV-2 (PCR) 05/07/20 05/07/20 05/07/20 10:05 10:05 11:20 WBC RBC Hgb Hct MCV MCH MCHC RDW Plt Count Neut % (Auto) Lymph % (Auto) [place] % (Auto) Eos % (Auto) Baso % (Auto) Neut # (Auto) Lymph # (Auto) [place] # (Auto) Eos # (Auto) Baso # (Auto) PT INR APTT Sodium Potassium Chloride Carbon Dioxide BUN Creatinine Estimated GFR BUN/Creatinine Ratio Glucose Calcium Magnesium Total Bilirubin AST ALT Alkaline Phosphatase Total Creatine Kinase CK-MB (CK-2) CK-MB (CK-2) Rel Index Troponin I NT-Pro-B Natriuret Pep 5520 H Total Protein Albumin Globulin Albumin/Globulin Ratio Lipase TSH 0.153 L Nasal Screen MRSA (PCR) SARS-CoV-2 (PCR) Negative 05/07/20 05/07/20 05/07/20 11:24 13:25 16:09 WBC RBC Hgb Hct MCV MCH MCHC RDW Plt Count Neut % (Auto) Lymph % (Auto) [place] % (Auto) Eos % (Auto) Baso % (Auto) Neut # (Auto) Lymph # (Auto) [place] # (Auto) Eos # (Auto) Baso # (Auto) PT INR APTT Sodium Potassium Chloride Carbon Dioxide BUN Creatinine Estimated GFR BUN/Creatinine Ratio Glucose Calcium Magnesium 2.2 Total Bilirubin AST ALT Alkaline Phosphatase Total Creatine Kinase 21 L CK-MB (CK-2) TNP CK-MB (CK-2) Rel Index TNP Troponin I 0.027 NT-Pro-B Natriuret Pep Total Protein Albumin Globulin Albumin/Globulin Ratio Lipase TSH Nasal Screen MRSA (PCR) Negative for mrsa SARS-CoV-2 (PCR) Assessment & Plan Assessment & Plan narrative: 84-year-old with history of atrial fibrillation with RVR, off metoprolol x3 days presents with heart palpitations and shortness of breath x2 days. 1. Paroxysmal atrial fibrillation with RVR Plan: Patient became quickly rate controlled with the diltiazem in the ED and is no longer in need of the drip. Hopeful that she will be able to maintain rate control overnight and start her usual home medications in the morning including atenolol and amlodipine. Will continue her home Xarelto. Telemetry. Plan for rescheduling outpatient stress test. 2. Rule out [facility] Plan: Troponin slightly elevated in the ED now normalized with the 2nd lab, will recheck third set in the morning. Continue telemetry. Stress test as n oted in #1. 3. Heart failure with preserved ejection fraction, chronic -1+pitting edema, peripheral extremities Plan: Will repeat BNP in the morning and administer another dose of furosemide if needed. 4. Hypothyroidism, chronic, uncontrolled at time of admission Plan: Will decrease levothyroxine from 125 mcg to 112 mcg daily and recheck TSH in the outpatient setting. 5. Diabetes mellitus type 2, insulin dependent Plan: Continue home Lantus. Start insulin aspart per sliding scale. 6. Chronic kidney disease, Stage 3, close to baseline Plan: Will keep blood pressure well controlled and follow labs. 7. Anemia normocytic/normochromic, likely due to chronic disease Plan: Will treat underlying disease. 8. Polymyalgia rheumatica Plan: Continue home prednisone 8 mg p.o. q.day. 9. Gout Plan: Continue home allopurinol. 10. Hypertension Plan: Continue home medications. 11. Hyperlipidemia Plan: Continue home medications DVT prophylaxis: Xarelto COVID: Negative Code: DNR/DNI Quality VTE Deep Vein Thrombosis/Pulmonary Embolism Present on Admission: No
[2020-05-07] MEDS: ROSUVASTATIN 10 MG TABLET 5 MG PO (21:00)
[2020-05-07] MEDS: INSULIN GLARGINE 100 UNIT/ML 3ML PEN 18 UNIT SUBCUT (21:00)
--- NOTE | 2020-05-07 22:59 | PC.NURSE ---
1920 noted that patient HR was 59, Dilt off and MD notified. At 2200 Pt HR increased to 110, MD notified again and Dilt restarted at 5mg/hr.
[2020-05-08] VITALS (30 sets, daily range): BP systolic 120–173; BP diastolic 60–115; PULSE 57–130; RESP 9–28; TEMP 36–37.2; O2SAT 93–97
[2020-05-08 05:15] LABS: Add Manual Diff / Slide Review NO; Basophils Absolute Auto 100 /uL (0-100); Basophils Percent Auto 1.3 % (0-2); Eosinophils Absolute Auto 200 /uL (0-450); Eosinophils Percent Auto 1.7 % (2-4); Hematocrit 30.8 % (36-46); Hemoglobin 10.2 g/dL (12.0-16.0); Lymphocytes Absolute Auto 2300 /uL (1100-4500); Lymphocytes Percent Auto 22.8 % (25-40); Mean Corpuscular HGB Conc 33.2 % (30-36); Mean Corpuscular Hemoglobin 28.5 PG (26-34); Monocytes Absolute Auto 1000 /uL (0-900); Monocytes Percent Auto 10.3 % (3-14); Neutrophils Absolute Auto 6400 /uL (1500-7000); Neutrophils Percent Auto 63.9 % (50-75); Platelet Count 213 X10^3/uL (150-400); Red Blood Cell Count 3.58 X10^6/uL (4.0-5.2); Red Cell Distribution Width 14.9 % (11.6-14.8)
[2020-05-08 05:16] LABS: BUN Creatinine Ratio 32.5 (6-22); Blood Urea Nitrogen 52 mg/dL (7-17); Calcium 8.9 mg/dL (8.4-10.2); Carbon Dioxide 27 mmol/L (22-32); Chloride 104 mmol/L (98-107); Estimated Glomerular Filt Rate 30.6 mL/min (>60); Glucose 153 mg/dL (80-110); HEMOLYSIS < 15 (0-50); Magnesium 2.1 mg/dL (1.6-2.3); Potassium 3.6 mmol/L (3.4-5.1); Sodium 135 mmol/L (137-145)
[2020-05-08 05:25] LABS: NT-proBNP (BNP-Adult 18+) 4850 pg/mL (<450)
[2020-05-08 05:28] LABS: Troponin I 0.032 ng/mL (0.01-0.034)
--- NOTE | 2020-05-08 06:19 | PC.NURSE ---
Patient remains in a Rapid Afib on Diltiazem GTT per protocol. HR labile, as low as 70 as high as 125 with activity with average at rest being 105. BP stable. Patient without complaints.
[2020-05-08] MEDS: LEVOTHYROXINE 112 MCG TABLET PO (06:27)
[2020-05-08] MEDS: DILTIAZEM 125 MG/125 ML PIGGYBACK IV (07:53)
[2020-05-08] MEDS: AMLODIPINE 5 MG TABLET 10 MG PO (08:48)
[2020-05-08] MEDS: RIVAROXABAN 10 MG TABLET 15 MG PO (08:49)
[2020-05-08] MEDS: HYDRALAZINE 25 MG TABLET PO (08:49)
[2020-05-08] MEDS: predniSONE 5 MG TABLET PO (08:51)
[2020-05-08] MEDS: predniSONE 1 MG TABLET 3 MG PO (08:51)
[2020-05-08] MEDS: CHLORTHALIDONE 25 MG TABLET PO (08:51)
[2020-05-08] MEDS: INSULIN GLARGINE 100 UNIT/ML 3ML PEN SUBCUT (08:52)
[2020-05-08] MEDS: EZETIMIBE 10 MG TABLET PO (08:52)
[2020-05-08] MEDS: INSULIN ASPART 100 UNIT/ML INSULN PEN SUBCUT ×3 (08:54→16:54)
[2020-05-08] MEDS: dilTIAZem CD 120 MG CAP PO (09:09)
[2020-05-08] MEDS: atenoloL 25 MG TABLET 50 MG PO (09:09)
--- NOTE | 2020-05-08 09:58 | PC.NURSE ---
Addendum entered by Shayla Coon R.N. 05/08/20 15:21: Patient ambulated in [place], remained NSR. At [address] Robertson office to report BG [id number], no response as of yet, report given to evening RN. Original Note: Day Shift Note-Patient remains on diltiazem gtt, currently at 5mg/hr, A-fib RVR 110-130, BP stable, see vital trends. 120mg PO diltiazem x1 given per order after seen by MD, will titrate gtt off as tolerated.
--- NOTE | 2020-05-08 13:49 | CM.DANOTE ---
Discharge Planning/Care Management DCP: assessment: Case received, EMR reviewed and met with pt. Introduced self and role. Pt is an 84 year old female who admitted yesterday afternoon to care of Dr. Hood. His PCP: Dr. Hawley saw him earlier today and will return after clinic. Payer: Medicare and [facility] Admission status: INPT: confirmed by UR RN Toby Met now with pt and introduced self and role. Pt was just starting to walk in [place] with RN and said she was hopeful that Dr. Hawley would let her go home this evening. (pt was up mobilizing with RN at [facility] and with no need for assistive device). Pt confirms that she did live at [facility] but when [employer] guidelines hit early last year she moved back into her home on [address] She says her daughter Jackie Avendano has moved from [place] to live with her. P: home when stable for same. If pt is still her tomorrow will check in again with her. CM Discharge Assessment Start: 05/08/20 13:45 Freq: Status: Active Protocol: Document 05/08/20 13:45 ITV (Rec: 05/08/20 13:48 ITV [id number]) Discharge Planning Assessment Advance Directives? Yes: POLST Advance Directives on File Yes History Provided By Patient,Medical Record Household Members children Transportation Arrangement Family to provide transport Review Status In Process
[2020-05-08] MEDS: INSULIN ASPART 100 UNIT/ML INSULN PEN 6 UNIT SUBCUT (15:47)
[2020-05-08] MEDS: allopurinoL 100 MG TABLET PO (16:55)
--- NOTE | 2020-05-08 17:50 | P.DS_ITS ---
History of Present Illness History of Present Illness Date Patient Seen: 05/08/20 Time Patient Seen: 17:50 Date of Onset of Symptoms: 05/06/20 Chief complaint: afib xcouple days Narrative: See history and physical Discharge Providers Provider Date of admission: 05/07/20 11:52 Discharge Date: 05/08/20 Primary care physician: Benigno Mahan MD Discharge provider: Benigno Mahan MD Summary Hospital Course Discharge Diagnosis: Atrial fibrillation with RVR Type 2 diabetes Hospital Course: Atrial fibrillation. Patient was admitted rate well controlled with minimal Cardizem. She was restarted on her usual medicines. She had started in the middle the night increased RVR and since Cardizem was discontinued IV was restarted. She had had an oral dose in the morning of Cardizem and IV diltiazem was discontinued. She had an episode of RVR and converted to sinus rhythm. She has been stable for the last several hours. She has been up ambulating without chest pain or shortness of breath. EKG showed no abnormality troponin was mildly elevated initially but it was felt to be secondary to her rate. Has no other changes or complaints. She will be followed up as an outpatient. She will go on Cardizem for short term until she stable will discontinue that on the other in does an outpatient she will continue usual beta-blockers. She will stop them on the night before her treadmill on Monday. Suspect most of this is secondary to her having been off her medicines for treadmill. Type 2 diabetes. Control not perfect but had been doing well as an outpatient. Will follow our usual procedure and I will follow her as an outpatient her numbers have been good in the past. Status at Discharge Overall status at discharge: patient is progressing back to baseline Exam Vital Signs (past 8 hours): - 05/08/20 10:00 05/08/20 10:02 05/08/20 10:30 Temperature Pulse Rate 115 H 113 H 74 Respiratory Rate 22 16 Blood Pressure 132/104 H 132/104 H Pulse Oximetry 95 05/08/20 11:00 05/08/20 11:43 05/08/20 13:05 Temperature 98.6 F Pulse Rate 57 L 58 L 60 Respiratory Rate 26 H 18 20 Blood Pressure 144/65 H 149/65 H Pulse Oximetry 97 95 05/08/20 14:01 05/08/20 15:00 Temperature 99.0 F 97.8 F Pulse Rate 62 75 Respiratory Rate 18 16 Blood Pressure 173/74 H 158/82 H Pulse Oximetry 96 96 Oxygen Delivery Method Room Air Oxygen Flow Rate 0 Narrative Exam Narrative: Alert smiling elderly female no acute distress HEENT exam is unremarkable neck supple without adenopathy lungs are clear heart regular rate and rhythm now. Extremities without cyanosis clubbing edema. Neurologic exam is unremarkable Objective Labs Result Diagrams: 05/08/20 04:30 05/08/20 04:30 Labs: Laboratory Results - last 24 hr 05/08/20 05/08/20 05/08/20 04:30 04:30 04:30 WBC 10.0 RBC 3.58 L Hgb 10.2 L Hct 30.8 L MCV 86.0 MCH 28.5 MCHC 33.2 RDW 14.9 H Plt Count 213 Neut % (Auto) 63.9 Lymph % (Auto) 22.8 L [place] % (Auto) 10.3 Eos % (Auto) 1.7 L Baso % (Auto) 1.3 Neut # (Auto) 6400 Lymph # (Auto) 2300 [place] # (Auto) 1000 H Eos # (Auto) 200 Baso # (Auto) 100 Sodium 135 L Potassium 3.6 Chloride 104 Carbon Dioxide 27 BUN 52 H Creatinine 1.60 H Estimated GFR 30.6 L BUN/Creatinine Ratio 32.5 H Glucose 153 H Calcium 8.9 Magnesium 2.1 Troponin I 0.032 NT-Pro-B Natriuret Pep 4850 H PFSH Medical History (Updated 05/07/20 @ 11:53 by PIERO Gutierrez) HTN (hypertension) HTN (hypertension) Hypoglycemia Palpitations Paroxysmal atrial fibrillation SOB (shortness of breath) Surgical History No pertinent past surgical history Social History household members: children Smoking Status: Never smoker alcohol intake: current Discharge Assessment & Plan Assessment and Plan Assessment: Discharge home follow-up with nm 10 days. Discharge Plan Discharge Plan Patient Disposition: Home Discharge orders & Medications Prescriptions: New diltiazem HCl 120 mg capsule,extended release 24 hr 120 mg PO QAM Qty: 30 RF: 3 Continued ezetimibe [Zetia] 10 MG tablet 10 mg PO DAILY Qty: 0 RF: 0 insulin lispro [Humalog U-100 Insulin] 100 UNIT/1 ML solution See Protocol sliding scale dose SUBCUT DIRECTED PRN (Reason: sliding scale) Qty: 0 RF: 0 prednisone 5 mg tablet 5 mg PO DAILY RF: 0 allopurinol 100 mg tablet 100 mg PO QPM RF: 0 levothyroxine 125 mcg tablet 125 mcg PO DAILY RF: 0 rivaroxaban 15 mg tablet 15 mg PO DAILY RF: 0 meclizine 12.5 mg Tablet 12.5 - 25 mg PO BEDTIME PRN (Reason: Dizziness) RF: 0 colchicine [Colcrys] 0.6 mg Tablet See Rx Instructions .ROUTE .COMPLEX MDD 3 tab PRN (Reason: Gout) RF: 0 atenolol 25 mg tablet 50 mg PO DAILY RF: 0 chlorthalidone 25 mg tablet 25 mg PO DAILY RF: 0 prednisone 1 mg tablet 3 mg PO DAILY RF: 0 (DME) FreeStyle Thomas 14 Day Sensor Kit MISCELLANEOUS RF: 0 acetaminophen 325 mg Tablet 325 mg PO PRN PRN (Reason: pain) RF: 0 Lantus Solostar U-100 Insulin 100 unit/mL (3 mL) insulin pen 18 unit SUBCUT QPM RF: 0 amlodipine [Norvasc] 5 mg Tablet 10 mg PO DAILY Qty: 30 RF: 2 rosuvastatin 10 mg Tablet 5 mg PO BEDTIME Qty: 30 RF: 0 hydralazine 25 mg tablet 25 mg PO DAILY RF: 0 Lantus Solostar U-100 Insulin 100 unit/mL (3 mL) Insulin Pen 2.5 unit SUBCUT QAM RF: 0 Follow up/Referrals: Benigno Mahan MD [Primary Care Provider] - 05/20/20 (patient to call monday or monday for appointment) Discharge Health Status Multidrug resistant organism: No MDRO Diet/Activity/Treatments Diet: Carb-consistent/Diabetic Diet comment: as tolerated Skin/Wound/Dressing Care Report to your healthcare provider any signs of infection, such as:: night sweats and increased pain Discharge Data Primary Care Provider: Benigno Mahan Quality VTE Deep Vein Thrombosis/Pulmonary Embolism Present on Admission: No
--- NOTE | 2020-05-08 18:41 | PC.NURSE ---
Discharge instructions given to Pt re AFib, diltiazem, DMII, and fall risk related to xeralto. Escorted to waiting family in WC per [employer]ER[employer] PROFESSOR @ [phone]
== END 2020-05-08 18:53 | disposition home or self-care (01) | DRG 309 ==
LOC: ED 11:53 → AC 11:53 → ICU 14:35
PROVIDERS: Emergency Medicine; Admitting Provider Student in an Organized Health Care Education/Training Program; Emergency Provider Nurse Practitioner Family; PCP Family Medicine; Referring Provider Nurse Practitioner Family; Visit Provider Student in an Organized Health Care Education/Training Program
DX: I48.0 Paroxysmal atrial fibrillation (principal); I13.0 Hypertensive heart and chronic kidney disease with heart failure and stage 1 through stage 4 chronic kidney disease, or unspecified chronic kidney disease; I50.32 Chronic diastolic (congestive) heart failure; D63.8 Anemia in other chronic diseases classified elsewhere; N18.30 Chronic kidney disease, stage 3 unspecified; M35.3 Polymyalgia rheumatica; E11.9 Type 2 diabetes mellitus without complications; E78.5 Hyperlipidemia, unspecified; E03.9 Hypothyroidism, unspecified; M10.9 Gout, unspecified; Z20.822 Contact with and (suspected) exposure to COVID-19; Z79.01 Long term (current) use of anticoagulants; Z79.4 Long term (current) use of insulin; Z79.52 Long term (current) use of systemic steroids
CPT/HCPCS: 36415; 71045; 78452; 80048; 80053; 82550; 82962; 83690; 83735; 83880; 84443; 84484; 85025; 85610; 85730; 87635; 87797; 93005; 93010; 93017; 96365; 96375; 99283; 99285; C9803; A9502; J1940; J2785

== ENCOUNTER → 2020-05-09 13:49 | Outpatient (CLI) | payer MEDICARE, OTHER, SELFPAY ==
[2020-05-07 14:20] VITALS: BMI 27.8
[2020-05-09 14:23] LABS: COVID19 -Nasal RAPID Negative (Negative)
== END ==
PROVIDERS: PCP Family Medicine; Visit Provider Physician Assistant
DX: Z20.822 Contact with and (suspected) exposure to COVID-19 (principal)
CPT/HCPCS: 87635; C9803

== ENCOUNTER 2020-06-03 15:45 | Inpatient (IN) | payer MEDICARE, OTHER, SELFPAY ==
[2020-05-07 14:20] VITALS: BMI 27.8
[2020-06-03 16:00] VITALS: BP 158/91; PULSE 117; RESP 18; TEMP 36.4; O2SAT 95
[2020-06-03 16:17] LABS: Add Manual Diff / Slide Review NO; Basophils Absolute Auto 0 /uL (0-100); Basophils Percent Auto 0.2 % (0-2); Eosinophils Absolute Auto 0 /uL (0-450); Eosinophils Percent Auto 0.3 % (2-4); Hematocrit 35.7 % (36-46); Lymphocytes Absolute Auto 500 /uL (1100-4500); Lymphocytes Percent Auto 4.5 % (25-40); Mean Corpuscular HGB Conc 33.6 % (30-36); Mean Corpuscular Hemoglobin 28.4 PG (26-34); Mean Corpuscular Volume 84.5 fL (80-100); Monocytes Absolute Auto 1100 /uL (0-900); Monocytes Percent Auto 10.5 % (3-14); Neutrophils Absolute Auto 8900 /uL (1500-7000); Neutrophils Percent Auto 84.5 % (50-75); Platelet Count 208 X10^3/uL (150-400); Red Blood Cell Count 4.22 X10^6/uL (4.0-5.2); Red Cell Distribution Width 14.7 % (11.6-14.8); White Blood Cell Count 10.6 X10^3/uL (4.5-11.0)
[2020-06-03 16:29] LABS: Alanine Aminotransferase 22 IU/L (<35); Albumin 3.7 g/dL (3.5-5.0); Albumin Globulin Ratio 1.1 (1.0-2.8); Alkaline Phosphatase 71 U/L (38-126); Aspartate Aminotransferase 40 IU/L (14-36); BUN Creatinine Ratio 16.6 (6-22); Bilirubin Total 0.5 mg/dL (0.2-1.3); Blood Urea Nitrogen 26 mg/dL (7-17); Calcium 8.7 mg/dL (8.4-10.2); Carbon Dioxide 28 mmol/L (22-32); Chloride 96 mmol/L (98-107); Estimated Glomerular Filt Rate 31.3 mL/min (>60); Globulin 3.3 g/dL (1.7-4.1); Glucose 122 mg/dL (80-110); HEMOLYSIS < 15 (0-50); Potassium 3.7 mmol/L (3.4-5.1); Sodium 129 mmol/L (137-145)
[2020-06-03 16:32] VITALS: BMI 27.6
[2020-06-03] MEDS: SODIUM CHLORIDE 0.9% 1,000 ML 125 ML IV (17:21)
[2020-06-03] MEDS: SODIUM CHLORIDE 0.9% 250 ML 1000 ML IV (17:25)
[2020-06-03 17:31] LABS: COVID19 -Nasal RAPID Negative (Negative)
--- NOTE | 2020-06-03 18:24 | P.HP_ITS ---
History of Present Illness History of Present Illness Date Patient Seen: 06/03/20 Time Patient Seen: 18:24 Date of Onset of Symptoms: 05/31/20 Chief complaint: vomiting/dehydration Narrative: Patient here for evaluation of 3-4 day history of nausea vomiting and fatigue. Patient had been doing okay and somewhat slowly began having increased nausea. She was not taking fluids. She has been not having any urine output much. She is having no abdominal pain. But has been vomiting consistently. She has been sleeping up most of yesterday and today. Daughter quite concerned. Has been arousable on doing okay but just goes right back to sleep. Not taking her meds. Has had no headache. No numbness tingling no shortness of breath. No cough. No abdominal discomfort. She has had no urinary changes. Her sugars have been mostly okay and she has only been taking her insulin intermittently. No on else in the family has been sick there has been no real exposure for other changes. She was seen in clinic today where her blood pressure was slightly elevated and she was having difficulty with the strength to move much. At that point decision to admit was made. Has been dizzy being lightheaded but has not passed out. Struggles with moving positions. Patient otherwise has been feeling well she was recently in April to been added for uncontrolled atrial fibrillation secondary to not taking her medicine on a consistent basis. Past medical history: Diabetes mellitus type 2 Hypertension Hyperlipidemia Atrial fibrillation Hypothyroidism Polymyalgia rheumatica Migraine Depression IBS Past surgical history: Partial hysterectomy Cholecystectomy Family history: Father: NH, coronary artery disease, hypertension Mother: Alcoholism, heart disease Siblings: Heart disease, depression, hyperlipidemia Social history: Retired Patient History Medical History HTN (hypertension) HTN (hypertension) Hypoglycemia Palpitations Paroxysmal atrial fibrillation SOB (shortness of breath) Surgical History No pertinent past surgical history Family & Social History Social History: household members children Prior Living Arrangements House Safety & Behavioral: Feels Safe in Current Yes Environment Been Physically Hurt or No Threatened By a Person Suicidal Ideation Description None Suicide Plan Description No Plan Tobacco & Substance use: Smoking Status Never smoker alcohol intake current alcohol intake frequency 0-2 drinks per day Substance Use Type does not use Meds Home Medications and Allergies Home Medications Medication Instructions Recorded Confirmed Type ezetimibe [Zetia] 10 mg PO DAILY #0 10/16/12 06/03/20 History insulin lispro [Humalog U-100 See Protocol SUBCUT DIRECTED 05/31/16 06/03/20 History Insulin] PRN #0 atenolol 50 mg PO DAILY 01/25/18 06/03/20 History chlorthalidone 25 mg PO DAILY 01/25/18 06/03/20 History allopurinol 100 mg PO DAILY 08/08/18 06/03/20 History levothyroxine 125 mcg PO DAILY 08/08/18 06/03/20 History prednisone 5 mg PO QAM 08/08/18 06/03/20 History rivaroxaban 15 mg PO DAILY 08/08/18 06/03/20 History colchicine [Colcrys] See Rx Instructions .ROUTE 01/28/19 06/03/20 History .COMPLEX PRN MDD 3 tab meclizine 12.5 - 25 mg PO BEDTIME PRN 01/28/19 06/03/20 History FreeStyle Thomas 14 Day Sensor 05/28/19 06/03/20 History Lantus Solostar U-100 Insulin 22 unit SUBCUT QPM 05/28/19 06/03/20 History acetaminophen 325 mg PO PRN PRN 05/28/19 06/03/20 History prednisone 1 mg PO QID 05/28/19 06/03/20 History Lantus Solostar U-100 Insulin 24 unit SUBCUT QAM 05/07/20 06/03/20 History hydralazine 25 mg PO DAILY 05/07/20 06/03/20 History amlodipine [Norvasc] 5 mg PO DAILY 06/03/20 06/03/20 History furosemide 20 mg PO DAILY 06/03/20 06/03/20 History losartan 50 mg PO DAILY 06/03/20 06/03/20 History rosuvastatin 5 mg PO BEDTIME 06/03/20 06/03/20 History Allergies Allergy/AdvReac Type Severity Reaction Status Date / Time kiwi Allergy Severe ANAPHYLAXIS Verified 03/23/20 12:53 Sulfa (Sulfonamide Allergy Severe unknown Verified 03/23/20 12:53 Antibiotics) meperidine AdvReac Severe I GO NUTS Verified 03/23/20 12:53 morphine AdvReac Severe DIZZY Verified 03/23/20 12:53 Review of Systems Review of Systems ROS: Yes All systems reviewed with the patient and are negative except as otherwise documented Exam Vital Signs (past 8 hours): - 06/03/20 16:00 Temperature 97.6 F Pulse Rate 117 H Respiratory Rate 18 Blood Pressure 158/91 H Pulse Oximetry 95 Oxygen Flow Rate 0 Narrative Exam Narrative: Alert fatigued female in no acute distress. Mucous membranes dry. Neck supple without adenopathy. Lungs are clear. Heart is irregular but controlled rate unchanged murmur. Abdomen is soft positive bowel sounds no hepatosplenomegaly Extremities with trace edema. Neurologic exam was unremarkable normal motor normal reflexes nonfocal. Psychologically just tired and not really responding to except when required Objective Labs Result Diagrams: 06/03/20 16:10 06/03/20 16:10 Labs: Laboratory Results - last 24 hr 06/03/20 06/03/20 06/03/20 16:10 16:10 17:05 WBC 10.6 RBC 4.22 Hgb 12.0 Hct 35.7 L MCV 84.5 MCH 28.4 MCHC 33.6 RDW 14.7 Plt Count 208 Neut % (Auto) 84.5 H Lymph % (Auto) 4.5 L Scurry % (Auto) 10.5 Eos % (Auto) 0.3 L Baso % (Auto) 0.2 Neut # (Auto) 8900 H Lymph # (Auto) 500 L Scurry # (Auto) 1100 H Eos # (Auto) 0 Baso # (Auto) 0 Sodium 129 L Potassium 3.7 Chloride 96 L Carbon Dioxide 28 BUN 26 H Creatinine 1.57 H Estimated GFR 31.3 L BUN/Creatinine Ratio 16.6 Glucose 122 H Calcium 8.7 Total Bilirubin 0.5 AST 40 H ALT 22 Alkaline Phosphatase 71 Total Protein 7.0 Albumin 3.7 Globulin 3.3 Albumin/Globulin Ratio 1.1 SARS-CoV-2 (PCR) Negative Assessment & Plan Assessment & Plan narrative: Nausea and vomiting. Etiology somewhat unclear. Could be she discussed behind in fluid in then given her diabetes and hypertension this is been an would to catch up. Does not appear to be infected except possible for urine. Which we will be checking. Certainly no other obvious source by history or physical exam. She does not have an acute abdomen seems to be otherwise functionally will see what happens once we hydrate her and see how things are doing. Certainly concerning for her being able to keep up with her fluids. Will continue Zofran and follow. She seems to be more relaxed tonight. Clear liquids tonight Dehydration moderate. Will rehydrate IV and see how she does. Clearly this is probably the biggest issue in her fatigue. I do not think this is helped by elena jones the nausea vomiting and her diabetes. Hyponatremia. Will go with gentle hydration and see how she responds. Hopefully once we get her nausea vomiting under control and some fluid hydration she will be better will recheck in a.m.. Hypertension. Poorly controlled but has not been taking her medicines will restart and follow. Atrial fibrillation. Patient is admitted multiple times with AVR. Will restart her usual rate control medication and follow. I do not think this is the cause of how she is feeling right now. Her rate is been well controlled but will place on tele to be sure. Type 2 diabetes. Surprisingly in adequate control. I do not think she has been low will give her Lantus and low-dose coverage and follow. Hypothyroidism. Continue usual meds. Code status discussed she is DNR. Patient is comfortable with that decision. GI prophylaxis and do not think we need any at this time. DVT prophylaxis on her usual anticoagulation. Disposition. Hoping things will clear hopefully once we get some fluids on board she will be doing better and get her sodium more in and placed. Also we need to be looking her urine hopefully will get 1 of those soon and re-evaluate could be all secondary to UTI will have to see. I do not see any of the area of infection. 45 minutes spent on floor reviewing documenting and patient care.
[2020-06-03 19:40] VITALS: BP 141/74; PULSE 115; RESP 19; TEMP 36.5; O2SAT 94
[2020-06-03] MEDS: ROSUVASTATIN 10 MG TABLET 5 MG PO (20:37)
[2020-06-03] MEDS: DOCUSATE 100 MG CAPSULE PO (20:38)
[2020-06-03] MEDS: INSULIN ASPART 100 UNIT/ML INSULN PEN SUBCUT (20:38)
[2020-06-03 22:04] LABS: Appearance Urine UA CLOUDY; Bilirubin Urine UA NEGATIVE (NEGATIVE); Color Urine UA YELLOW; Glucose Urine UA NEGATIVE (Negative); Ketones Urine UA NEGATIVE (NEGATIVE); Leukocyte Esterase Urine UA 2+ (NEGATIVE); Nitrite Urine UA NEGATIVE (Negative); Occult Blood Urine UA 3+ (Negative); Protein Urine UA 2+ (Negative); Specific Gravity Urine UA 1.015 (1.000-1.035); Urobilinogen Urine UA 0.2 E.U./dL (0.2)
[2020-06-03 22:05] LABS: pH Urine UA 5.5 (4.5-8.0)
[2020-06-03 22:11] LABS: Bacteria Urine Many (>30); RBC Urine 0-1/HPF (0-5/HPF); Squamous Epithelial Cell Urine 1-5 /HPF (0-5/HPF); WBC Urine 30-100/HPF (0-5/HPF)
[2020-06-03 22:12] LABS: Culture Indicated Urine Specimen Cultured
[2020-06-04] VITALS (16 sets, daily range): BP systolic 99–177; BP diastolic 47–99; PULSE 82–139; RESP 18–22; TEMP 36.3–38.4; O2SAT 91–97
[2020-06-04] MEDS: SODIUM CHLORIDE 0.9% 1,000 ML 125 ML IV ×2 (01:17→16:04)
[2020-06-04] MEDS: LOSARTAN 50 MG TABLET PO ×2 (03:17→08:44)
[2020-06-04] MEDS: atenoloL 50 MG TABLET PO ×2 (03:18→07:59)
[2020-06-04] MEDS: ACETAMINOPHEN 325 MG TABLET 650 MG PO (05:00)
[2020-06-04 05:25] LABS: Hematocrit 33.2 % (36-46); Mean Corpuscular HGB Conc 33.2 % (30-36); Mean Corpuscular Hemoglobin 28.2 PG (26-34); Mean Corpuscular Volume 84.8 fL (80-100); Platelet Count 198 X10^3/uL (150-400); Red Blood Cell Count 3.91 X10^6/uL (4.0-5.2); White Blood Cell Count 10.9 X10^3/uL (4.5-11.0)
[2020-06-04 05:28] LABS: Add Manual Diff / Slide Review YES
[2020-06-04 05:30] LABS: BUN Creatinine Ratio 16.9 (6-22); Blood Urea Nitrogen 22 mg/dL (7-17); Calcium 8.2 mg/dL (8.4-10.2); Carbon Dioxide 24 mmol/L (22-32); Chloride 100 mmol/L (98-107); Estimated Glomerular Filt Rate 38.9 mL/min (>60); Glucose 265 mg/dL (80-110); HEMOLYSIS < 15 (0-50); Magnesium 1.6 mg/dL (1.6-2.3); Potassium 3.6 mmol/L (3.4-5.1); Sodium 129 mmol/L (137-145)
[2020-06-04 06:12] LABS: Neutrophils Absolute Manual 9592 /uL (3000-5900); Total Cells Counted 100
[2020-06-04 06:13] LABS: Anisocytosis 1+
--- NOTE | 2020-06-04 06:22 | PC.NURSE ---
Smoke Tester Note-Nausea and vomitting has resolved, tolerating clear liquid diet. Afib RVR persists with rate sustaining up to 130s, also hypertensive 177/99. Notified Dr Barragan at 0250, received order for Now does of Atenolol 50mg PO and Losartan 50mg PO, patient has not taken meds in a few days 9 beat run VT reported by SIGNAL TOWER OPERATOR at 0430, patient was sleeping. PO Tylenol given for T 101.1.
[2020-06-04] MEDS: DOCUSATE 100 MG CAPSULE PO ×2 (07:58→20:32)
[2020-06-04] MEDS: LEVOTHYROXINE 125 MCG TABLET PO (07:59)
[2020-06-04] MEDS: RIVAROXABAN 10 MG TABLET 15 MG PO (07:59)
[2020-06-04] MEDS: predniSONE 5 MG TABLET PO (08:00)
[2020-06-04] MEDS: INSULIN ASPART 100 UNIT/ML INSULN PEN SUBCUT ×4 (08:15→20:33)
[2020-06-04] MEDS: INSULIN GLARGINE 100 UNIT/ML 3ML PEN 24 UNIT SUBCUT (08:17)
--- NOTE | 2020-06-04 08:20 | PM.PN.1 ---
Subjective Subjective Date Patient Seen: 06/04/20 Time Patient Seen: 08:20 Interval history: Feeling slightly better this morning. No other changes. No nausea. But not really feeling good about her diet choices. She has otherwise had no chest pain. No shortness of breath. No other complaint. Has had an elevated heart rate. In the 130s. No other changes. Temperature 101? last night Exam Vital Signs (past 8 hours): - 06/04/20 01:15 06/04/20 01:25 06/04/20 03:17 Temperature 99.2 F Pulse Rate 117 H 128 H Respiratory Rate 22 Blood Pressure 177/99 H 177/99 H Pulse Oximetry 93 93 06/04/20 04:54 06/04/20 05:00 06/04/20 07:55 Temperature 101.1 F H 101.1 F H 98.9 F Pulse Rate 115 H 139 H Respiratory Rate 20 18 Blood Pressure 153/83 H 140/66 Pulse Oximetry 91 95 06/04/20 08:08 Temperature Pulse Rate Respiratory Rate Blood Pressure Pulse Oximetry 95 Oxygen Delivery Method Room Air Oxygen Flow Rate 0 Narrative Exam Narrative: Alert less fatigued female in no acute distress. Neck supple without adenopathy. Lungs clear. Heart increase heart rate irregular with unchanged murmur. Abdomen is soft positive bowel sounds nontender. No flank pain. Extremities without cyanosis clubbing edema. Neurologic exam is stable. Objective Labs Result Diagrams: 06/04/20 04:45 06/04/20 04:45 Labs: Laboratory Results - last 24 hr 06/03/20 06/03/20 06/03/20 16:10 16:10 17:05 WBC 10.6 RBC 4.22 Hgb 12.0 Hct 35.7 L MCV 84.5 MCH 28.4 MCHC 33.6 RDW 14.7 Plt Count 208 Neut % (Auto) 84.5 H Lymph % (Auto) 4.5 L Crowley % (Auto) 10.5 Eos % (Auto) 0.3 L Baso % (Auto) 0.2 Neut # (Auto) 8900 H Lymph # (Auto) 500 L Crowley # (Auto) 1100 H Eos # (Auto) 0 Baso # (Auto) 0 Total Counted Seg Neutrophils % Band Neutrophils % Lymphocytes % (Manual) Monocytes % (Manual) Neutrophils # (Manual) RBC Morphology Anisocytosis Sodium 129 L Potassium 3.7 Chloride 96 L Carbon Dioxide 28 BUN 26 H Creatinine 1.57 H Estimated GFR 31.3 L BUN/Creatinine Ratio 16.6 Glucose 122 H Calcium 8.7 Magnesium Total Bilirubin 0.5 AST 40 H ALT 22 Alkaline Phosphatase 71 Total Protein 7.0 Albumin 3.7 Globulin 3.3 Albumin/Globulin Ratio 1.1 Urine Color Urine Appearance Urine pH Ur Specific [place] Urine Protein Urine Glucose (UA) Urine Ketones Urine Occult Blood Urine Nitrate Urine Bilirubin Urine Urobilinogen Ur Leukocyte Esterase Urine RBC Urine WBC Ur Squamous Epith Cells Urine Bacteria Ur Culture Indicated? SARS-CoV-2 (PCR) Negative 06/03/20 06/04/20 06/04/20 21:53 04:45 04:45 WBC 10.9 RBC 3.91 L Hgb 11.0 L Hct 33.2 L MCV 84.8 MCH 28.2 MCHC 33.2 RDW 15.0 H Plt Count 198 Neut % (Auto) Not Reportable Lymph % (Auto) Not Reportable Crowley % (Auto) Not Reportable Eos % (Auto) Not Reportable Baso % (Auto) Not Reportable Neut # (Auto) Lymph # (Auto) Not Reportable Crowley # (Auto) Not Reportable Eos # (Auto) Baso # (Auto) Not Reportable Total Counted 100 Seg Neutrophils % 77.0 H Band Neutrophils % 11.0 H Lymphocytes % (Manual) 7.0 L Monocytes % (Manual) 5.0 Neutrophils # (Manual) 9592 H RBC Morphology See below Anisocytosis 1+ H Sodium 129 L Potassium 3.6 Chloride 100 Carbon Dioxide 24 BUN 22 H Creatinine 1.30 H Estimated GFR 38.9 L BUN/Creatinine Ratio 16.9 Glucose 265 H D Calcium 8.2 L Magnesium 1.6 Total Bilirubin AST ALT Alkaline Phosphatase Total Protein Albumin Globulin Albumin/Globulin Ratio Urine Color Yellow Urine Appearance Cloudy Urine pH 5.5 Ur Specific [place] 1.015 Urine Protein 2+ H Urine Glucose (UA) Negative Urine Ketones Negative Urine Occult Blood 3+ H Urine Nitrate Negative Urine Bilirubin Negative Urine Urobilinogen 0.2 Ur Leukocyte Esterase 2+ H Urine RBC 0-1/hpf Urine WBC 30-100/hpf H Ur Squamous Epith Cells 1-5 /hpf Urine Bacteria Many (>30) H Ur Culture Indicated? Specimen cultured SARS-CoV-2 (PCR) [facility] Medical History HTN (hypertension) HTN (hypertension) Hypoglycemia Palpitations Paroxysmal atrial fibrillation SOB (shortness of breath) Surgical History No pertinent past surgical history Social History household members: children Smoking Status: Never smoker alcohol intake: current Assessment & Plan Assessment & Plan narrative: Atrial fibrillation with RVR. Probably set off by her bladder infection. Hoping we can get control with Cardizem. Will continue her atenolol add short-acting Cardizem without works will continue long-term. Discontinue Norvasc. Will follow. If needed will transferred to unit will discuss with sales operations manager. Fever. Probably secondary to bladder infection. Cultures processing now. Levaquin and follow. I suspect this was the cause of her admission in the last few days of nausea and vomiting. Otherwise exam is normal. Dehydration. Improved. Output has been good. Will drop IV hydration to 75 cc an hopefully can discontinue tomorrow Nausea and vomiting. Slightly improved. Probably better since hydrated. Will see how things go slow increase in diet and re-evaluate. Hyponatremia. Stable. Will continue gentle hydration hopefully will improve over the next 24 hours once we control her infection and her nausea. Hypertension poorly controlled. Will see what Cardizem does increase her atenolol and re-evaluate. Type 2 diabetes. Will continue Lantus and sliding scale re-evaluate. Hypothyroidism. Stable. Code status DNR GI prophylaxis I do not think we needed at this time. DVT prophylaxis on anticoagulation. Disposition if she does well tolerates food and is rate controlled may be able to go home tomorrow probably Monday but will see how things go. 45 minutes spent in care today
[2020-06-04] MEDS: levoFLOXacin 750 MG/150 ML PIGGYBACK 100 MG IV (08:44)
--- NOTE | 2020-06-04 08:46 | PC.NURSE ---
Addendum entered by Zee Martinez R.N. 06/04/20 13:20: Patient tolerating ada diet, no nausea or pain. Original Note: Patient alert, oriented, afebrile this morning, denies pain and nausea. Tolerating clear liquids, advanced to ADA for lunch.
[2020-06-04] MEDS: INSULIN ASPART 100 UNIT/ML INSULN PEN 7 UNIT SUBCUT (13:05)
--- NOTE | 2020-06-04 14:39 | CM.DANOTE ---
DCP: Case received, EMR reviewed and met with patient. Introduced self and role. Was able to obtain information from patient regarding her baseline activity status prior to hospitalization, as well as her current living situation. DCP assessment completed with information currently available. Patient is an 84 year old female who admitted yesterday afternoon to the care of the hospitalist team. PCP: Dr. Mahan. Payer: confirmed: Medicare/[facility]. Patient came to the hospital via private vehicle secondary to having some vomiting. Patient diagnosed with UTI, she is currently on IV antibiotics. She also was noted to have a-fib with RVR. Met with patient in her room. She was sitting up in her chair next to her bed. She is alert and oriented, pleasant. She confirmed that she resides in [place] with her daughter, Jackie. She also stated that she is independent at baseline, and does not use any DME supplies. Confirmed that her provider is Dr. Mahan. Patient also drives, as well. P: DCP to continue to follow for any needs. Patient should be able to go home when medically stable. Alaina Dewitt, RN/Chief Dispatcher
[2020-06-04] MEDS: dilTIAZem 30 MG TABLET PO (17:36)
[2020-06-04] MEDS: ROSUVASTATIN 10 MG TABLET 5 MG PO (20:32)
[2020-06-04] MEDS: INSULIN GLARGINE 100 UNIT/ML 3ML PEN 22 UNIT SUBCUT (20:33)
[2020-06-04] MEDS: SODIUM CHLORIDE 0.9% FLUSH 10 ML IV (20:34)
[2020-06-05] VITALS (12 sets, daily range): BP systolic 115–153; BP diastolic 57–81; PULSE 82–116; RESP 16–20; TEMP 36–38.7; O2SAT 90–96
[2020-06-05] MEDS: dilTIAZem 30 MG TABLET PO ×3 (00:26→09:30)
[2020-06-05] MEDS: SODIUM CHLORIDE 0.9% 1,000 ML 125 ML IV (04:58)
[2020-06-05] MEDS: ACETAMINOPHEN 325 MG TABLET 650 MG PO (04:59)
[2020-06-05 05:07] LABS: Add Manual Diff / Slide Review NO; Basophils Absolute Auto 100 /uL (0-100); Basophils Percent Auto 0.5 % (0-2); Eosinophils Absolute Auto 100 /uL (0-450); Eosinophils Percent Auto 0.8 % (2-4); Hematocrit 31.9 % (36-46); Hemoglobin 10.6 g/dL (12.0-16.0); Lymphocytes Absolute Auto 800 /uL (1100-4500); Lymphocytes Percent Auto 6.6 % (25-40); Mean Corpuscular HGB Conc 33.1 % (30-36); Mean Corpuscular Volume 84.7 fL (80-100); Monocytes Absolute Auto 1100 /uL (0-900); Monocytes Percent Auto 9.4 % (3-14); Neutrophils Absolute Auto 9700 /uL (1500-7000); Neutrophils Percent Auto 82.7 % (50-75); Platelet Count 207 X10^3/uL (150-400); Red Blood Cell Count 3.77 X10^6/uL (4.0-5.2); Red Cell Distribution Width 14.9 % (11.6-14.8); White Blood Cell Count 11.7 X10^3/uL (4.5-11.0)
[2020-06-05 05:13] LABS: BUN Creatinine Ratio 16.7 (6-22); Blood Urea Nitrogen 31 mg/dL (7-17); Calcium 8.4 mg/dL (8.4-10.2); Carbon Dioxide 25 mmol/L (22-32); Chloride 102 mmol/L (98-107); Estimated Glomerular Filt Rate 25.7 mL/min (>60); Glucose 161 mg/dL (80-110); HEMOLYSIS < 15 (0-50); Potassium 4.1 mmol/L (3.4-5.1); Sodium 132 mmol/L (137-145)
--- NOTE | 2020-06-05 05:13 | PC.NURSE ---
Addendum entered by Malena Hall R.N. 06/05/20 06:03: Pt temp 101.6 oral at 0530. Pt allowed one more blanket to be removed. Pt temp 99.3 at 0600. Ice removed from back of neck. Original Note: Pt febrile at 0500, 101.3 F. Tylenol 650 PRN given & applied ice. Pt allowed removal of only one blanket. Educated pt on fever reduction techniques.
[2020-06-05] MEDS: LEVOTHYROXINE 125 MCG TABLET PO (06:06)
[2020-06-05] MEDS: atenoloL 50 MG TABLET PO (09:28)
[2020-06-05] MEDS: RIVAROXABAN 10 MG TABLET 15 MG PO (09:28)
[2020-06-05] MEDS: DOCUSATE 100 MG CAPSULE PO ×2 (09:29→21:54)
[2020-06-05] MEDS: predniSONE 5 MG TABLET PO (09:29)
[2020-06-05] MEDS: LOSARTAN 50 MG TABLET PO (09:29)
[2020-06-05] MEDS: CEFTRIAXONE 1 GM/50 ML FROZ.PIGGY IV (09:29)
[2020-06-05] MEDS: SODIUM CHLORIDE 0.9% FLUSH 10 ML IV ×2 (09:31→21:55)
[2020-06-05] MEDS: INSULIN ASPART 100 UNIT/ML INSULN PEN SUBCUT ×3 (09:32→16:39)
[2020-06-05] MEDS: INSULIN GLARGINE 100 UNIT/ML 3ML PEN 24 UNIT SUBCUT (09:32)
[2020-06-05] MEDS: dilTIAZem 30 MG TABLET 60 MG PO ×2 (13:08→19:19)
[2020-06-05] MEDS: ONDANSETRON 4 MG/2 ML INJ IV (15:13)
--- NOTE | 2020-06-05 19:25 | DI.RAD.S_ITS ---
PROCEDURE: XR ACUTE ABDOMEN SERIES INDICATIONS: abdominal pain TECHNIQUE: One view chest and two views of the abdomen were acquired. COMPARISON: [facility], CR, XR CHEST 1V, 05/07/2020, 10:20. FINDINGS: Surgical changes and devices: Cholecystectomy clips. Chest: Focal opacities noted in the lung bases bilaterally. Heart size is normal. No pleural effusions. No pneumoperitoneum. Abdomen: Bowel gas pattern is nonspecific. No suspicious calcifications. Visualized solid organ contours appear normal. Bones: No suspicious bony lesions. IMPRESSION: 1. Nonspecific bowel gas pattern without definite evidence of obstruction. 2. Bibasilar airspace opacities concerning for pneumonia. Dictated by: Christine Madison MD, PhD on 06/05/2020 at 20:04 Approved by: Christine Mdaison MD, PhD on 06/05/2020 at 20:06
--- NOTE | 2020-06-05 19:28 | P.PN_ITS ---
Subjective Subjective Date Patient Seen: 06/05/20 Time Patient Seen: 08:28 Interval history: Patient was seen 2 separate occasions today. She was seen initially in the morning approximately 30 and then again at 7:00 p.m.. I met with the patient and her daughter on the 2nd visit. Patient was feeling much better in the evening. She is tolerating p.o. fluids but does not have much of an appetite at all. She does complain of feeling when she takes a bite of food that is getting stuck. She has recently received antinausea medication which has been helpful. She has not had any further vomiting. She is on a higher insulin sliding scale that she takes at home and her blood sugars are better today. She is still feeling very fatigued and difficulty with much ambulation. She had a bowel movement 2 days ago which is normal for her She has not eaten much. She lives at home with her daughter. I reviewed her workup thus far. I reviewed reason for admission. Presence of urinary tract infection was discovered yesterday and she was given 1 dose of 750 mg of Levaquin. She was switched to ceftriaxone this morning. And she had a fever of 101 early this morning. Her heart rate has been in the low 100s. She is on diltiazem 30 immediate release 4 times a day which was started yesterday she is also on atenolol 50 mg a day She denies headaches She denies chest pain or shortness of breath Exam Vital Signs (past 8 hours): - 06/05/20 12:00 06/05/20 15:49 06/05/20 19:19 Temperature 99.4 F 96.8 F L Pulse Rate 83 82 86 Respiratory Rate 18 16 Blood Pressure 115/59 L 121/57 L 140/67 Pulse Oximetry 91 90 L Oxygen Delivery Method Room Air Oxygen Flow Rate 0 Narrative Exam Narrative: Patient is alert and oriented no apparent distress HEENT: No pharyngeal erythema or exudate no evidence of thrush. 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 There is no guarding. There is no rebound. There is no mid epigastric tenderness Extremities: Trace edema, nonpitting. Pulses intact . Chronic venous stasis changes Objective Labs Result Diagrams: 06/05/20 04:35 06/05/20 04:35 Labs: Laboratory Results - last 24 hr 06/05/20 06/05/20 04:35 04:35 WBC 11.7 H RBC 3.77 L Hgb 10.6 L Hct 31.9 L MCV 84.7 MCH 28.0 MCHC 33.1 RDW 14.9 H Plt Count 207 Neut % (Auto) 82.7 H Lymph % (Auto) 6.6 L Bradley % (Auto) 9.4 Eos % (Auto) 0.8 L Baso % (Auto) 0.5 Neut # (Auto) 9700 H Lymph # (Auto) 800 L Bradley # (Auto) 1100 H Eos # (Auto) 100 Baso # (Auto) 100 Sodium 132 L Potassium 4.1 Chloride 102 Carbon Dioxide 25 BUN 31 H Creatinine 1.86 H Estimated GFR 25.7 L BUN/Creatinine Ratio 16.7 Glucose 161 H D Calcium 8.4 PFSH Medical History HTN (hypertension) HTN (hypertension) Hypoglycemia Palpitations Paroxysmal atrial fibrillation SOB (shortness of breath) Surgical History No pertinent past surgical history Social History household members: children Smoking Status: Never smoker alcohol intake: current Assessment & Plan Assessment & Plan narrative: 65 minutes was spent in time with patient during 2 separate visits. Reviewing her chart, meeting with nursing staff and having discussion with her daughter and the patient. 84-year-old female Assessment 1. Nausea, vomiting and lethargy as the reason for admission. Patient was subsequently found to have E coli UTI and was given 1 dose of Levaquin 750 mg yesterday morning. Patient had a fever this morning. She was switched to ceftriaxone 1 g IV Q 24 hours. Urine culture shows that the E coli is pansensitive. White blood cell count was elevated today. I am presuming that this is the etiology of her symptomatology. There is a possibility that she has abdominal issue going on as well. At this point we will give more time with the antibiotic different. We will recheck labs in the morning. We will await blood cultures. We will continue with Zofran Assessment 2. Dysphagia. Could be related to nausea vomiting. No evidence of Shauna-Nichols tear. I do not think that she is impacted or constipated Plan: Will start on PPI. Will do three view of the abdomen in the morning. Will continue to support p.o. intake and continue IV fluids Assessment 3. Atrial fibrillation with rapid ventricular rate improved with increase in diltiazem. Plan: Will continue with atenolol 50 mg daily. Will increase diltiazem to 60 mg 4 times a day. It may make sense to simplify regimen and try metoprolol increase this dose so which she is only on 1 rate controlling medication or simply switching her over to a calcium channel марина as we have added and stopping the atenolol.. Continue on the samerivaroxaban Assessment 4. Acute on chronic kidney disease worsened today for unclear etiologies Plan: Will continue to hold her diuretic. Will continue with IV fluids. Possibly this is related to the Levaquin. This is been stopped. Will continue with the ceftriaxone. Will recheck in a.m. Assessment 5. Hypertension improved with addition of diltiazem Plan: Continue atenolol and diltiazem and losartan Assessment 6. Type 2 diabetes, insulin-dependent Plan: Continue with current Lantus and sliding scale insulin. Blood sugars are coming down. I do not think her abdominal pain is gastroparesis because of the sudden onset and severity but we will continue to monitor Assessment 7. History of polymyalgia rheumatica Plan: Continue on 8 mg of prednisone Assessment 8. Hypothyroidism Plan: Continue on the same thyroid medication Assessment 9. Patient does drink 1 scotch on a nightly basis. We discussed withdrawal. It is a very small amount. I will write for lorazepam we will monitor closely. Code status is DNR
[2020-06-05] MEDS: ROSUVASTATIN 10 MG TABLET 5 MG PO (21:54)
[2020-06-05] MEDS: INSULIN GLARGINE 100 UNIT/ML 3ML PEN 22 UNIT SUBCUT (22:06)
[2020-06-06] VITALS (13 sets, daily range): BP systolic 120–134; BP diastolic 46–85; PULSE 70–119; RESP 16–20; TEMP 36.4–37.5; O2SAT 91–95
[2020-06-06] MEDS: dilTIAZem 30 MG TABLET 60 MG PO ×2 (00:11→05:55)
[2020-06-06] MEDS: SODIUM CHLORIDE 0.9% 1,000 ML 75 ML IV ×2 (00:18→06:01)
[2020-06-06 05:39] LABS: Add Manual Diff / Slide Review NO; Basophils Absolute Auto 0 /uL (0-100); Basophils Percent Auto 0.4 % (0-2); Eosinophils Absolute Auto 100 /uL (0-450); Eosinophils Percent Auto 0.6 % (2-4); Hemoglobin 9.8 g/dL (12.0-16.0); Lymphocytes Absolute Auto 800 /uL (1100-4500); Mean Corpuscular HGB Conc 33.8 % (30-36); Mean Corpuscular Hemoglobin 28.6 PG (26-34); Mean Corpuscular Volume 84.6 fL (80-100); Monocytes Absolute Auto 900 /uL (0-900); Monocytes Percent Auto 8.4 % (3-14); Neutrophils Absolute Auto 8700 /uL (1500-7000); Neutrophils Percent Auto 82.6 % (50-75); Platelet Count 227 X10^3/uL (150-400); Red Blood Cell Count 3.42 X10^6/uL (4.0-5.2); White Blood Cell Count 10.6 X10^3/uL (4.5-11.0)
[2020-06-06 05:54] LABS: Alanine Aminotransferase 20 IU/L (<35); Albumin 2.9 g/dL (3.5-5.0); Alkaline Phosphatase 61 U/L (38-126); Aspartate Aminotransferase 32 IU/L (14-36); BUN Creatinine Ratio 17.3 (6-22); Bilirubin Total 0.3 mg/dL (0.2-1.3); Blood Urea Nitrogen 28 mg/dL (7-17); Calcium 8.2 mg/dL (8.4-10.2); Carbon Dioxide 22 mmol/L (22-32); Chloride 106 mmol/L (98-107); Estimated Glomerular Filt Rate 30.2 mL/min (>60); Glucose 93 mg/dL (80-110); HEMOLYSIS < 15 (0-50); Potassium 3.5 mmol/L (3.4-5.1); Sodium 133 mmol/L (137-145); Total Protein 5.9 g/dL (6.3-8.2)
[2020-06-06] MEDS: LEVOTHYROXINE 125 MCG TABLET PO (05:56)
[2020-06-06] MEDS: CEFTRIAXONE 1 GM/50 ML FROZ.PIGGY IV (08:00)
[2020-06-06] MEDS: PANTOPRAZOLE 40 MG VIAL 20 MG IV (09:24)
[2020-06-06] MEDS: FUROSEMIDE 20 MG/2 ML VIAL IV (09:35)
--- NOTE | 2020-06-06 09:54 | P.PN_ITS ---
Subjective Subjective Date Patient Seen: 06/06/20 Time Patient Seen: 09:55 Interval history: Patient is somewhat somnolent but easily awakens and has a normal discussion. Says she does not really feel whole lot better than she did when she came to the hospital. Got some rest overnight. Does not have much of an appetite but is not admitting to any difficulty swallowing or anything like that. She has been afebrile since early yesterday morning so greater than 24 hours afebrile Heart rate is been adequately controlled with current meds the atenolol plus the immediate release diltiazem. She is not hypotensive she has had normal blood pressures Blood sugars adequately controlled in the last 24 hours. Exam Vital Signs (past 8 hours): - 06/06/20 05:30 06/06/20 05:55 06/06/20 06:09 Temperature 98.6 F Pulse Rate 95 H 119 H Respiratory Rate 18 Blood Pressure 134/67 134/67 Pulse Oximetry 91 92 06/06/20 07:55 06/06/20 08:43 Temperature 99.5 F Pulse Rate 76 Respiratory Rate 18 Blood Pressure 126/68 Pulse Oximetry 95 93 Oxygen Delivery Method Nasal Cannula Oxygen Flow Rate 1 Narrative Exam Narrative: Elderly female who looks chronically ill but not acutely uncomfortable, lying in her hospital bed HEENT unremarkable Lungs-good breath sounds no wheezes no crackles Heart-irregularly irregular with grade 2/6 systolic ejection murmur the right precordium radiates towards the neck consistent with her known aortic stenosis Abdomen-positive bowel tones soft nontender nondistended Objective Labs Result Diagrams: 06/06/20 05:09 06/06/20 05:09 Labs: Laboratory Results - last 24 hr 06/06/20 06/06/20 05:09 05:09 WBC 10.6 RBC 3.42 L Hgb 9.8 L Hct 29.0 L MCV 84.6 MCH 28.6 MCHC 33.8 RDW 15.0 H Plt Count 227 Neut % (Auto) 82.6 H Lymph % (Auto) 8.0 L [place] % (Auto) 8.4 Eos % (Auto) 0.6 L Baso % (Auto) 0.4 Neut # (Auto) 8700 H Lymph # (Auto) 800 L [place] # (Auto) 900 Eos # (Auto) 100 Baso # (Auto) 0 Sodium 133 L Potassium 3.5 Chloride 106 Carbon Dioxide 22 BUN 28 H Creatinine 1.62 H Estimated GFR 30.2 L BUN/Creatinine Ratio 17.3 Glucose 93 Calcium 8.2 L Total Bilirubin 0.3 AST 32 ALT 20 Alkaline Phosphatase 61 Total Protein 5.9 L Albumin 2.9 L Globulin 3.0 Albumin/Globulin Ratio 1.0 [facility] Medical History HTN (hypertension) HTN (hypertension) Hypoglycemia Palpitations Paroxysmal atrial fibrillation SOB (shortness of breath) Surgical History No pertinent past surgical history Social History household members: children Smoking Status: Never smoker alcohol intake: current Assessment & Plan Assessment & Plan narrative: 1. UTI with systemic symptoms-patient's urine growing E coli that is basically pansensitive. Unclear why she was changed from levofloxacin to ceftriaxone other than the fever she was having. However she is been afebrile now on current antibiotic therapy and I would continue it for now. Probably switch to oral antibiotic therapy in the next 24-48 hours depending on clinical course. She will need at least 10 days of antibiotic therapy in total. Of note her white count has normalized this morning as well. 2. Acute kidney injury-patient appears to be back to baseline with her chronic renal dysfunction. If anything she may be a bit volume overloaded based on slight reduction in oxygen saturation etcetera. She had her IV fluids discontinued yesterday and I am going to restart her chronic diuretic therapy at low-dose today. 3. Atrial fibrillation with rapid ventricular response-patient's heart rate has been adequately controlled with current combination of medications. I am going to switch her from the immediate release diltiazem to slow release version at equivalent dose. It may be possible at some point to consolidate her medications but for now given lack of hypotension I think the atenolol plus the diltiazem makes sense. She will continue on the long-term anticoagulation as well of course 4. Congestive heart failure-patient with normal left ventricular function as of March 2020 on echocardiography however there may be an element of diastolic dysfunction based on history. Difficult to ascertain that with atrial fibrillation on echocardiography. She does have aortic stenosis as well and it would be best to trying keep her as euvolemic as possible. That is why I reintroduced the diuretic therapy as above as I believe if anything she has a tiny bit volume overloaded. Will need to monitor electrolytes etcetera 5. Weakness-patient would benefit from physical therapy to get her up and around that will help verify that her rate control with her atrial fibrillation is appropriate. I will consult Physical therapy today as well. 6. Disposition-patient likely able to go home when improved, although currently as of today that is not appropriate but I do expect continued improvement
[2020-06-06] MEDS: DOCUSATE 100 MG CAPSULE PO ×2 (10:27→20:48)
[2020-06-06] MEDS: predniSONE 5 MG TABLET PO (10:27)
[2020-06-06] MEDS: RIVAROXABAN 10 MG TABLET 15 MG PO (10:28)
[2020-06-06] MEDS: LOSARTAN 50 MG TABLET PO (10:28)
[2020-06-06] MEDS: predniSONE 1 MG TABLET 3 MG PO (10:28)
[2020-06-06] MEDS: atenoloL 50 MG TABLET PO (10:28)
[2020-06-06] MEDS: SODIUM CHLORIDE 0.9% FLUSH 10 ML IV (10:30)
[2020-06-06] MEDS: INSULIN ASPART 100 UNIT/ML INSULN PEN SUBCUT ×2 (12:13→16:54)
[2020-06-06] MEDS: dilTIAZem CD 240 MG CAP PO (12:13)
--- NOTE | 2020-06-06 14:30 | PT.IIE ---
Surgical History (Last Reviewed 06/03/20 @ 18:27 by Benigno Mahan MD) No pertinent past surgical history Medical History (Last Reviewed 06/03/20 @ 18:27 by Benigno Mahan MD) HTN (hypertension) HTN (hypertension) Hypoglycemia Palpitations Paroxysmal atrial fibrillation SOB (shortness of breath) Physical Therapy Inpatient Evaluation/Re-Eval M1 PT/OT-IP Prior Functional Status Start: 06/06/20 15:15 Freq: NEEDED Status: Active Protocol: Document 06/06/20 14:30 AB (Rec: 06/06/20 15:27 AB [email or web address]) Medical Review Prior Functional Status Medical History Reviewed Yes Communication able to make needs known Mobility and Gait pt stated that she is completely independent with all mobility and ambulation without AD Social History Household Members children Living Arrangements House Number of Floors (Floors) 3 or More Floors Number of Stairs To Enter/Railing? pt stay on main level of the house has 7 steps with wide bilateral rails to enter (can only hold on to 1 rail at a time) Home Environment Standard Height Toilet,Tub/ Shower Home Equipment Front Wheel Walker M2 PT-IP Current Condition Start: 06/06/20 15:15 Freq: NEEDED Status: Active Protocol: Document 06/06/20 14:30 AB (Rec: 06/06/20 15:27 AB [email or web address]) Physical Therapy Current Condition Current Condition Evaluation Date 06/06/20 Treatment Diagnosis dehydration; a-fib; difficulty in walking Onset Date 06/03/20 M3 PT-IP Subjective Start: 06/06/20 15:15 Freq: NEEDED Status: Active Protocol: Document 06/06/20 14:30 AB (Rec: 06/06/20 15:27 AB [email or web address]) Subjective Physical Therapy Visit Type Type Initial Evaluation Visit Start Time 14:30 Visit Stop Time 14:54 Total Visit Minutes 24 Number of CONFIGURATION MANAGER Visits 0 Physical Therapy Visit Comments Patient Comments pt is asleep but woke up. agreed to do PT but requested to go back to bed afterwards Therapy Pain Assessment Pain Present Pain Present Denied Pain M4 PT-IP Mobility and Gait Start: 06/06/20 15:15 Freq: NEEDED Status: Active Protocol: Document 06/06/20 14:30 AB (Rec: 06/06/20 15:27 AB [email or web address]) PT-Bed Mobility Assessment Supine to Sit Supine to Sit Contact Guard Assistance Sit to Supine Sit to Supine Contact Guard Assistance PT-Transfer Assessment Sit to and From Stand Sit to and from Stand Minimal Assistance,1 Person Assistance,Use of Upper Extremities Equipment Transfer Assistive Device Gait Belt,Front Wheeled Walker Orthotic/Prosthetic Devices or Brace: No Comments Mobility Comments pt completed supine to sit CGA with 2 attempts to complete task. pt was able to sit on EOB SBA. completed sit to stand x 2 attempts min A and pt tends to pull on FWW to get up. ambulated in room using FWW min A ~ 20 ft and cues. pt refused further ambulation. requested to go back to bed. completed sit to supine CGA. positioned in bed. call light and table placed within reach. O2 sat: 93% Gait Assessment Gait Gait Assistance Required: Minimum Assistance,1 Person Assist Distance (Feet) 20 Able to Maintain Weight Bearing Status Yes During Gait Assistive Devices Assistive Device Gait Belt,Front Wheeled Walker Gait Deviations General Gait Pattern Antalgic,Decreased Stride Length,Decreased Feet Clearance,Step-to Gait Factors Limiting Gait Function Factors Limiting Gait Function Decreased Activity Tolerance, Decreased Strength,Poor Balance,Poor Safety Awareness, Respiratory Distress Comments Gait Comments presents with antalgic gait with decrease step length PT-Balance Assessment Sitting Balance and Reactions Static Sitting Balance Ability Good Dynamic Sitting Balance Ability Good Standing Balance and Reactions Static Standing Balance Ability Fair Dynamic Standing Balance Ability Fair Device Used FWW M5 PT-IP Objective Assessments Start: 06/06/20 15:15 Freq: NEEDED Status: Active Protocol: Document 06/06/20 14:30 AB (Rec: 06/06/20 15:27 AB [email or web address]) Orientation Orientation/Cognition Level of Alertness Alert Orientation Name,Place,Situation Safety Awareness Decreased Safety Awareness Gross Range of Motion Lower Extremity ROM Assessment Within Functional Limits Strength Lower Extremity Strength Assessment Within Functional Limits Coordination Assessment Gross Coordination Gross Coordination WNL Sensation Assessment Sensation Gross Sensation WNL Muscle Tone Muscle Tone WNL Yes M6 PT-IP Treatment Start: 06/06/20 15:15 Freq: NEEDED Status: Active Protocol: Document 06/06/20 14:30 AB (Rec: 06/06/20 15:27 AB [email or web address]) Physical Therapy Treatment Education Education Provided Safety M7 PT-IP Assessment and Plan Start: 06/06/20 15:15 Freq: NEEDED Status: Active Protocol: Document 06/06/20 14:30 AB (Rec: 06/06/20 15:27 AB [id number]) PT Summary Assessment and Plan Potential Rehabilitation Potential Good Status of Condition at Evaluation Stable Summary Impairments Strength,Balance,Sensation, Tone,Cognition,Bed Mobility, Transfers,Gait,Activity Tolerance Assessment Summary pt requiring min A with mobility and presents with decrease activity tolerance affecting mobility independence. pt plans to go home and her daughter will be able to assist her per pt. dc plan depending on progress but pt will likely progress during hospital stay. pt may benefit from HHPT to improve overall strength and improve activity tolerance. Goals Bed Mobility Goal Independent Transfer Goal Independent,Front Wheeled Walker Gait Goal Independent,Front Wheel Walker Gait Distance 200 Other Goals improve ambulation without AD 250 ft SBA up/down 7 steps with 1 rail SBA Days to Meet Goals 10 Frequency of Treatment Frequency Of Treatment Once a Day Treatment Plan Physical Therapy Treatment Plan Bed Mobility Training,Transfer Training,Gait Training, Therapeutic Exercise,Balance Retraining,Discharge Planning, Hot or Cold Pack,Neuromuscular Re-ed,Coordination Retraining Other Recommendations and Next Treatment ambulation Focus Recommendations To Nursing Amount of Assist Needed 1 Person Assist Discharge Recommendations PT Discharge Recommendations Home with Assistance,Home Health Transportation Needs at Discharge Private Vehicle,Wheelchair/ Cabulance
[2020-06-06] MEDS: POTASSIUM CHLORIDE 10 MEQ TAB PO (16:55)
[2020-06-06] MEDS: DEXTROSE 5%-0.45NS W/KCL 20MEQ 1,000 ML 75 MEQ IV (18:36)
[2020-06-06] MEDS: ROSUVASTATIN 10 MG TABLET 5 MG PO (20:48)
[2020-06-06] MEDS: INSULIN GLARGINE 100 UNIT/ML 3ML PEN 22 UNIT SUBCUT (20:51)
[2020-06-06] MEDS: POTASSIUM CHLORIDE 20 MEQ in SODIUM CHLORIDE 0.45% 1,000 ML 75 MEQ IV (21:38)
[2020-06-06] MEDS: INSULIN ASPART 100 UNIT/ML INSULN PEN 6 UNIT SUBCUT (21:39)
[2020-06-07] VITALS (17 sets, daily range): BP systolic 124–168; BP diastolic 65–85; PULSE 77–119; RESP 13–26; TEMP 36.3–37.5; O2SAT 87–98
[2020-06-07 05:32] LABS: Add Manual Diff / Slide Review NO; Basophils Absolute Auto 100 /uL (0-100); Eosinophils Absolute Auto 100 /uL (0-450); Eosinophils Percent Auto 0.9 % (2-4); Hematocrit 29.6 % (36-46); Hemoglobin 9.8 g/dL (12.0-16.0); Lymphocytes Absolute Auto 600 /uL (1100-4500); Lymphocytes Percent Auto 4.8 % (25-40); Mean Corpuscular Volume 85.1 fL (80-100); Monocytes Absolute Auto 900 /uL (0-900); Monocytes Percent Auto 6.7 % (3-14); Neutrophils Absolute Auto 11300 /uL (1500-7000); Neutrophils Percent Auto 86.6 % (50-75); Platelet Count 262 X10^3/uL (150-400); Red Blood Cell Count 3.48 X10^6/uL (4.0-5.2); Red Cell Distribution Width 15.2 % (11.6-14.8)
[2020-06-07 05:41] LABS: BUN Creatinine Ratio 19.6 (6-22); Blood Urea Nitrogen 32 mg/dL (7-17); Calcium 8.6 mg/dL (8.4-10.2); Carbon Dioxide 22 mmol/L (22-32); Chloride 105 mmol/L (98-107); Glucose 165 mg/dL (80-110); HEMOLYSIS < 15 (0-50); Potassium 4.4 mmol/L (3.4-5.1); Sodium 133 mmol/L (137-145)
[2020-06-07] MEDS: LEVOTHYROXINE 125 MCG TABLET PO (06:47)
--- NOTE | 2020-06-07 08:32 | RT ---
Pt o2 increased to 4lpm nc to maintain 90% . Audible wheezes heard, pt states no smoking/asthma hx and has never used Neb Txs or Inhalers. Rn notified and contacting MD to get RT eval Tx to order Prn Dumichelbs
[2020-06-07] MEDS: predniSONE 5 MG TABLET PO (09:41)
[2020-06-07] MEDS: POTASSIUM CHLORIDE 10 MEQ TAB PO ×2 (09:41→16:32)
[2020-06-07] MEDS: RIVAROXABAN 10 MG TABLET 15 MG PO (09:42)
[2020-06-07] MEDS: DOCUSATE 100 MG CAPSULE PO ×2 (09:42→20:55)
[2020-06-07] MEDS: CEFTRIAXONE 1 GM/50 ML FROZ.PIGGY IV (09:43)
[2020-06-07] MEDS: LOSARTAN 50 MG TABLET PO (09:43)
[2020-06-07] MEDS: PANTOPRAZOLE 40 MG VIAL 20 MG IV (09:43)
[2020-06-07] MEDS: INSULIN GLARGINE 100 UNIT/ML 3ML PEN 24 UNIT SUBCUT (09:47)
[2020-06-07] MEDS: dilTIAZem CD 240 MG CAP PO (09:48)
[2020-06-07] MEDS: INSULIN ASPART 100 UNIT/ML INSULN PEN SUBCUT ×4 (09:48→20:52)
[2020-06-07] MEDS: SODIUM CHLORIDE 0.9% FLUSH 10 ML IV ×2 (09:49→20:56)
[2020-06-07] MEDS: ACETAMINOPHEN 325 MG TABLET 650 MG PO (09:52)
[2020-06-07] MEDS: predniSONE 1 MG TABLET 3 MG PO (09:53)
[2020-06-07] MEDS: atenoloL 50 MG TABLET PO ×2 (10:03→20:55)
--- NOTE | 2020-06-07 10:46 | PM.PN.1 ---
Subjective Subjective Date Patient Seen: 06/07/20 Time Patient Seen: 10:47 Interval history: Patient says she does not feel any better. However she is much more talkative awake alert and interactive today than she was yesterday by far. Is having a bit more respiratory distress that is obvious on exam. There were concerns about urinary output yesterday. Only had about 400 cc in her bladder on bladder scan and she was able to empty some of that on her own. I started some IV fluids that included dextrose which was a mistake unfortunately. Blood sugar went up but her urine output also went up slightly. Patient had some concerns about her insulin dosing and changed how much she wanted to take which I loud yesterday. She took less long-acting insulin more short-acting insulin for her hyperglycemia. I also discontinue the dextrose in her IV Exam Vital Signs (past 8 hours): - 06/07/20 04:00 06/07/20 08:00 06/07/20 08:31 Temperature 97.3 F L 99.3 F Pulse Rate 95 H 103 H 119 H Respiratory Rate 18 13 26 H Blood Pressure 152/71 H 168/77 H Pulse Oximetry 92 91 87 L 06/07/20 08:50 Temperature Pulse Rate Respiratory Rate Blood Pressure Pulse Oximetry 92 Oxygen Delivery Method Nasal Cannula Oxygen Flow Rate 4 Narrative Exam Narrative: Elderly female sitting up in bed actively watching TV HEENT-unremarkable Lungs-crackles at the bases bilaterally Heart-regular rate and rhythm Abdomen-positive bowel tones soft nontender nondistended Extremities-1+ edema at the ankles bilaterally Objective Labs Result Diagrams: 06/07/20 05:01 06/07/20 05:01 Labs: Laboratory Results - last 24 hr 06/07/20 06/07/20 05:01 05:01 WBC 13.0 H RBC 3.48 L Hgb 9.8 L Hct 29.6 L MCV 85.1 MCH 28.0 MCHC 33.0 RDW 15.2 H Plt Count 262 Neut % (Auto) 86.6 H Lymph % (Auto) 4.8 L [place] % (Auto) 6.7 Eos % (Auto) 0.9 L Baso % (Auto) 1.0 Neut # (Auto) 72768 H Lymph # (Auto) 600 L [place] # (Auto) 900 Eos # (Auto) 100 Baso # (Auto) 100 Sodium 133 L Potassium 4.4 Chloride 105 Carbon Dioxide 22 BUN 32 H Creatinine 1.63 H Estimated GFR 30.0 L BUN/Creatinine Ratio 19.6 Glucose 165 H Calcium 8.6 PFSH Medical History (Updated 06/07/20 @ 10:49 by Ifeaniy Talbot MD) CHF (congestive heart failure) HTN (hypertension) Hypoglycemia Palpitations Paroxysmal atrial fibrillation Stable angina Surgical History No pertinent past surgical history Social History household members: children Smoking Status: Never smoker alcohol intake: current Assessment & Plan Assessment & Plan narrative: 1. Respiratory-patient probably with an element of fluid overload based on IV fluids for her resuscitation with her initial illness as well as yesterday with concerns about urinary output. I did give her a dose of oral Lasix yesterday that did not really have much of an effect. Her exam today is consistent with the congestive heart failure. I am going to go ahead and give her a larger dose of IV Lasix and discontinue her IV fluids today. Hopefully that will help eliminate some fluid reduce her oxygen requirement and her congestive heart failure etcetera. 2. Atrial fibrillation-patient is somewhat more tachycardic again today. I am going to increase her atenolol to 50 mg b.i.d. continue with the long-acting diltiazem hand re-evaluate 3. UTI-patient is afebrile continue on current antibiotic therapy. Could probably switch to oral antibiotic therapy tomorrow if she remains afebrile without evidence of more active infection 4. Acute kidney injury-patient's creatinine remains at baseline as of this morning. Plan to recheck tomorrow along with her electrolytes given the Lasix that will be administered today. 5. -continue with physical therapy she did actually do better than I would have guessed yesterday. 6. Disposition-patient likely to be able to go home when we can correct primarily issues around her atrial fibrillation and her congestive heart failure.
[2020-06-07] MEDS: ALBUTEROL 2.5 MG/3 ML NEB (ADULT) INH ×4 (11:07→23:24)
[2020-06-07] MEDS: FUROSEMIDE 100 MG/10 ML VIAL 60 MG IV (11:30)
--- NOTE | 2020-06-07 12:13 | PC.NURSE ---
Day shift: Pt given IV Lasix this AM per JUN and Pt up to BSC at this time to void. Will record output in the Worklist. Pt has denied any pain. Has been given a NEB by RT and tolerated that well. She did get chilled w/ mild perspiration at approx 1145 but her oral temp was WNL. PO Tyleol for generalized pain this AM. Pt does state she just doesn't feel that great today. Lungs this AM w/ wheezes and Dr Talbot aware. IV fluids d/c'd per . Lunch BG was 170. Will continue w/ plan of care. Pt has also had a poor appetite today.
--- NOTE | 2020-06-07 12:49 | PT.IPTN ---
Current Diagnoses Acute cystitis without hematuria (06/03/20) Physical Therapy Treatment Note M2 PT-IP Current Condition Start: 06/06/20 15:15 Freq: NEEDED Status: Active Protocol: Document 06/06/20 14:30 AB (Rec: 06/06/20 15:27 AB [id number]) Physical Therapy Current Condition Current Condition Evaluation Date 06/06/20 Treatment Diagnosis dehydration; a-fib; difficulty in walking Onset Date 06/03/20 M3 PT-IP Subjective Start: 06/06/20 15:15 Freq: NEEDED Status: Active Protocol: Document 06/07/20 12:08 LJ (Rec: 06/07/20 12:48 LJ [id number]) Subjective Physical Therapy Visit Type Type Treatment Note Visit Start Time 12:08 Visit Stop Time 12:34 Total Visit Minutes 26 Physical Therapy Visit Comments Patient Comments Pt requesting to use the BS M4 PT-IP Mobility and Gait Start: 06/06/20 15:15 Freq: NEEDED Status: Active Protocol: Document 06/07/20 12:08 LJ (Rec: 06/07/20 12:48 LJ [id number]) PT-Bed Mobility Assessment Supine to Sit Supine to Sit Standby Assistance,Head of Bed Elevated Sit to Supine Sit to Supine Standby Assistance,Head of Bed Elevated PT-Transfer Assessment Sit to and From Stand Sit to and from Stand Contact Guard Assistance,Use of Upper Extremities Equipment Transfer Assistive Device Gait Belt,Front Wheeled Walker Orthotic/Prosthetic Devices or Brace: No Comments Mobility Comments Pt completed bed mobility SBA and sit>stand CGA. Pt transfered to BSC with 3 steps CGA. Sat on BSC several minutes to void then requested to return to bed. Pt able to return to bed SBA. Gait Assessment Comments Gait Comments pt refused ambulation in room. requested to return to bed after sitting on BSC M5 PT-IP Objective Assessments Start: 06/06/20 15:15 Freq: NEEDED Status: Active Protocol: Document 06/06/20 14:30 AB (Rec: 06/06/20 15:27 AB [id number]) Orientation Orientation/Cognition Level of Alertness Alert Orientation Name,Place,Situation Safety Awareness Decreased Safety Awareness Gross Range of Motion Lower Extremity ROM Assessment Within Functional Limits Strength Lower Extremity Strength Assessment Within Functional Limits Coordination Assessment Gross Coordination Gross Coordination WNL Sensation Assessment Sensation Gross Sensation WNL Muscle Tone Muscle Tone WNL Yes M6 PT-IP Treatment Start: 06/06/20 15:15 Freq: NEEDED Status: Active Protocol: Document 06/07/20 12:08 TODD (Rec: 06/07/20 12:48 LJ [id number]) Physical Therapy Treatment Education Education Provided Safety M7 PT-IP Assessment and Plan Start: 06/06/20 15:15 Freq: NEEDED Status: Active Protocol: Document 06/07/20 12:08 TODD (Rec: 06/07/20 12:48 LJ [id number]) PT Summary Assessment and Plan Potential Rehabilitation Potential Good Status of Condition at Evaluation Stable Summary Impairments Strength,Balance,Sensation, Tone,Cognition,Bed Mobility, Transfers,Gait,Activity Tolerance Assessment Summary Pt requiring less assist with bed mobility and transfers this session. Will need encouragement to motivate her to ambulate. Goals Bed Mobility Goal Independent Transfer Goal Independent,Front Wheeled Walker Gait Goal Independent,Front Wheel Walker Gait Distance 200 Other Goals improve ambulation without AD 250 ft SBA up/down 7 steps with 1 rail SBA Days to Meet Goals 10 Frequency of Treatment Frequency Of Treatment Once a Day Treatment Plan Physical Therapy Treatment Plan Bed Mobility Training,Transfer Training,Gait Training, Therapeutic Exercise,Balance Retraining,Discharge Planning, Hot or Cold Pack,Neuromuscular Re-ed,Coordination Retraining Other Recommendations and Next Treatment ambulation Focus Recommendations To Nursing Amount of Assist Needed 1 Person Assist Discharge Recommendations PT Discharge Recommendations Home with Assistance,Home Health Transportation Needs at Discharge Private Vehicle,Wheelchair/ Cabulance
--- NOTE | 2020-06-07 14:27 | CM.DPC ---
DCP Ongoing Home planning Per MD, pt continuing to make progress but still with signs of CHF and fluid overload and not stable for d/c yet today. Per PT, pt also making some progress but still recommending home with assist and HH. SW met bedside with pt briefly and explained role and pt quite drowsy and wanting to sleep and SW discussed HH recommendation and pt states she thinks she would be agreeable to HH and briefly reviewed HH Choice list and no preference and agreeable to SW making HH referral at this time then asked SW to leave so she could sleep. SW made [facility] referral based on vendor calendar and faxed clinicals to review. SW had left F2F on pt chart for MD to sign but since pt is not stable for d/c yet today and her PCP will return tomorrow MD left F2F for PCP to sign tomorrow. SW left F2F on front of pt chart. Plan: SW to follow closely tomorrow for MD to sign F2F for likely plan of pt return home with adult Dtr and new [facility] referral. SW to fax signed F2F, d/c summary, and MD orders to [facility] at discharge if HH still needed. Clotilde Chen MSW
[2020-06-07] MEDS: INSULIN GLARGINE 100 UNIT/ML 3ML PEN 22 UNIT SUBCUT (20:52)
[2020-06-07] MEDS: ROSUVASTATIN 10 MG TABLET 5 MG PO (20:56)
[2020-06-08] VITALS (10 sets, daily range): BP systolic 125–145; BP diastolic 57–82; PULSE 92–115; RESP 18–22; TEMP 36.6–37; O2SAT 92–96
[2020-06-08 05:40] LABS: BUN Creatinine Ratio 21.3 (6-22); Blood Urea Nitrogen 32 mg/dL (7-17); Calcium 8.6 mg/dL (8.4-10.2); Carbon Dioxide 24 mmol/L (22-32); Chloride 105 mmol/L (98-107); Glucose 189 mg/dL (80-110); HEMOLYSIS < 15 (0-50); Potassium 3.7 mmol/L (3.4-5.1); Sodium 134 mmol/L (137-145)
[2020-06-08] MEDS: LEVOTHYROXINE 125 MCG TABLET PO (06:19)
[2020-06-08] MEDS: ALBUTEROL 2.5 MG/3 ML NEB (ADULT) INH (07:30)
[2020-06-08] MEDS: INSULIN ASPART 100 UNIT/ML INSULN PEN SUBCUT ×3 (08:16→16:48)
[2020-06-08] MEDS: INSULIN GLARGINE 100 UNIT/ML 3ML PEN 24 UNIT SUBCUT (08:17)
[2020-06-08] MEDS: PANTOPRAZOLE 40 MG VIAL 20 MG IV (09:58)
[2020-06-08] MEDS: SODIUM CHLORIDE 0.9% FLUSH 10 ML IV ×3 (10:05→21:18)
[2020-06-08] MEDS: CEFTRIAXONE 1 GM/50 ML FROZ.PIGGY IV (10:06)
[2020-06-08] MEDS: dilTIAZem CD 240 MG CAP PO (10:08)
[2020-06-08] MEDS: atenoloL 50 MG TABLET PO ×2 (10:09→21:02)
[2020-06-08] MEDS: predniSONE 1 MG TABLET 3 MG PO (10:10)
[2020-06-08] MEDS: predniSONE 5 MG TABLET PO (10:10)
[2020-06-08] MEDS: LOSARTAN 50 MG TABLET PO (10:11)
[2020-06-08] MEDS: POTASSIUM CHLORIDE 10 MEQ TAB PO ×2 (10:11→16:48)
[2020-06-08] MEDS: DOCUSATE 100 MG CAPSULE PO ×2 (10:11→21:02)
[2020-06-08] MEDS: RIVAROXABAN 10 MG TABLET 15 MG PO (10:12)
--- NOTE | 2020-06-08 10:14 | PT.IPTN ---
Current Diagnoses Acute cystitis without hematuria (06/03/20) Physical Therapy Treatment Note M2 PT-IP Current Condition Start: 06/06/20 15:15 Freq: NEEDED Status: Active Protocol: Document 06/06/20 14:30 AB (Rec: 06/06/20 15:27 AB [id number]) Physical Therapy Current Condition Current Condition Evaluation Date 06/06/20 Treatment Diagnosis dehydration; a-fib; difficulty in walking Onset Date 06/03/20 M3 PT-IP Subjective Start: 06/06/20 15:15 Freq: NEEDED Status: Active Protocol: Document 06/08/20 09:36 LJ (Rec: 06/08/20 10:14 LJ [id number]) Subjective Physical Therapy Visit Type Type Treatment Note Visit Start Time 09:36 Visit Stop Time 09:54 Total Visit Minutes 18 Physical Therapy Visit Comments Patient Comments Pt wanting to get off 02 and return home M4 PT-IP Mobility and Gait Start: 06/06/20 15:15 Freq: NEEDED Status: Active Protocol: Document 06/08/20 09:36 LJ (Rec: 06/08/20 10:14 [id number]) PT-Bed Mobility Assessment Supine to Sit Supine to Sit Standby Assistance,Head of Bed Elevated Sit to Supine Sit to Supine Standby Assistance,Head of Bed Elevated Scooting Scooting to Edge of Bed Standby Assistance Scooting Up and Down in Bed Standby Assistance PT-Transfer Assessment Sit to and From Stand Sit to and from Stand Standby Assistance,Contact Guard Assistance,Use of Upper Extremities Equipment Transfer Assistive Device Gait Belt,Front Wheeled Walker Orthotic/Prosthetic Devices or Brace: No Comments Mobility Comments Pt SBA for bed mobility and CGA for first sit<>stand for precautionary purposes. thereafter she was SBA with use of UEs pushing off bed. Pt able to get out of, into, and reposition self in bed without assistance. Gait Assessment Gait Gait Assistance Required: Standby Assistance,Contact Guard Assist,Minimum Assistance Distance (Feet) 30 Able to Maintain Weight Bearing Status Yes During Gait Assistive Devices Assistive Device Gait Belt,Front Wheeled Walker Gait Deviations General Gait Pattern Antalgic,Decreased Stride Length,Decreased Feet Clearance,Step-to Gait Factors Limiting Gait Function Factors Limiting Gait Function Decreased Activity Tolerance, Decreased Strength,Poor Balance,Poor Safety Awareness, Respiratory Distress Comments Gait Comments Pt ambulated in room SBA-CGA ( Lay for 02 line) in room around bed x1. Flexed trunk but corrected when cued. Pt moves slowly due to fatigue ( pt stated). O2 remained in the 93%-94% range during exercise . M5 PT-IP Objective Assessments Start: 06/06/20 15:15 Freq: NEEDED Status: Active Protocol: Document 06/06/20 14:30 AB (Rec: 06/06/20 15:27 AB [id number]) Orientation Orientation/Cognition Level of Alertness Alert Orientation Name,Place,Situation Safety Awareness Decreased Safety Awareness Gross Range of Motion Lower Extremity ROM Assessment Within Functional Limits Strength Lower Extremity Strength Assessment Within Functional Limits Coordination Assessment Gross Coordination Gross Coordination WNL Sensation Assessment Sensation Gross Sensation WNL Muscle Tone Muscle Tone WNL Yes M6 PT-IP Treatment Start: 06/06/20 15:15 Freq: NEEDED Status: Active Protocol: Document 06/08/20 09:36 TODD (Rec: 06/08/20 10:14 TODD [id number]) Physical Therapy Treatment Exercises Exercises Ankle Pumps,Gluteal Sets Other Treatments Other Treatment Performed standing marches 30 seconds 2 AP B x10 GS x10 sit<>stand x5 M7 PT-IP Assessment and Plan Start: 06/06/20 15:15 Freq: NEEDED Status: Active Protocol: Document 06/08/20 09:36 TODD (Rec: 06/08/20 10:14 LJ [id number]) PT Summary Assessment and Plan Potential Rehabilitation Potential Good Status of Condition at Evaluation Stable Summary Impairments Strength,Balance,Sensation, Tone,Cognition,Bed Mobility, Transfers,Gait,Activity Tolerance Assessment Summary Pt improving with mobility and progressing gait this treatment session. O2 remaining stable during exercise at (93%-94% topping out at 95% with deep inhale). Would be beneficial for her to attempt increasing gait distance to improve strength and endurance. Goals Bed Mobility Goal Independent Transfer Goal Independent,Front Wheeled Walker Gait Goal Independent,Front Wheel Walker Gait Distance 200 Other Goals improve ambulation without AD 250 ft SBA up/down 7 steps with 1 rail SBA Days to Meet Goals 10 Frequency of Treatment Frequency Of Treatment Once a Day Treatment Plan Physical Therapy Treatment Plan Bed Mobility Training,Transfer Training,Gait Training, Therapeutic Exercise,Balance Retraining,Discharge Planning, Hot or Cold Pack,Neuromuscular Re-ed,Coordination Retraining Other Recommendations and Next Treatment ambulation Focus Recommendations To Nursing Amount of Assist Needed 1 Person Assist Discharge Recommendations PT Discharge Recommendations Home with Assistance,Home Health Transportation Needs at Discharge Private Vehicle,Wheelchair/ Cabulance
--- NOTE | 2020-06-08 11:18 | PC.NURSE ---
Addendum entered by Meera Bolanos R.N. 06/08/20 14:51: DC mechanical planner made aware of both home 02 and cardiology f/u. Addendum entered by Meera Bolnaos R.N. 06/08/20 14:43: pt declining oral care right now. When asked again, pt stated not at this exact minute. I reminded to pt ask when she is ready. Addendum entered by Meera Bolanos R.N. 06/08/20 14:40: Dr. Mahan rounded again this afternoon and added Lasix and a chest CT. Lasix infusing now. Plan is to DC tomorrow with O2 if needed and a f/u with interventional radiology tech Cee. I gave BI LEAD a heads up and called RT for 02 who instructed me to reach out to DC planning (I will before I leave). Addendum entered by Meera Bolanos R.N. 06/08/20 13:24: pt has blood sugar implant and able to check CBG with monitor (without finger prick). CBG's 158 and 164 and administered insulin for each. Original Note: AM Shift note. pt AO and receptive to care. Expressing needs and calling appropriately. Right wrist PIV flushing and infusing intermittent ABX. Tele afib (baseline), +1-2 edema to bilateral ankles, denying pain. Wheezing to right posterior lung bases. PT assisted with ambulation in room this AM and pt feel better but pretty tired after. Able to titrate O2 from 2L NC to 1L NC after PT and 02 sat at 93%.
--- NOTE | 2020-06-08 13:20 | DI.CT.S_ITS ---
PROCEDURE: CT ANGIO CHEST PE PROTOCOL INDICATIONS: hypoxia TECHNIQUE: After the administration of intravenous contrast, 2 mm thick sections acquired from the pulmonary apices to the posterior costophrenic angles. 3-dimensional maximum intensity projection (MIP) coronal and sagittal reformats were then acquired through the thorax. For radiation dose reduction, the following was used: automated exposure control, adjustment of mA and/or kV according to patient size. COMPARISON: None. FINDINGS: Image quality: Excellent. Pulmonary arteries: Pulmonary arteries are normal in size, and demonstrate no intraluminal filling defects to suggest central pulmonary embolism. Lungs and pleura: Lungs are mildly edematous. There are bilateral simple appearing pleural effusions with no pneumothorax and with what appears to be atelectasis immediately adjacent, commensurate with the amount of pleural effusion seen.. Central and peripheral airways are patent. Mediastinum: Heart size is normal, without pericardial effusion. No mediastinal or hilar adenopathy. Thoracic aorta is normal in caliber and enhancement. Esophagus is normal in caliber, without hiatal hernia. Bones and chest wall: No suspicious bony lesions. Ribs and thoracic spine appear intact throughout. Thyroid gland is not well seen No axillary or supraclavicular adenopathy. Abdomen: Visualized upper abdominal solid organs appear normal in the early arterial phase of enhancement. IMPRESSION: Bilateral simple appearing water density pleural effusions, [id number] in overall quantity, with commensurate adjacent posterior lung atelectasis, without additional findings suggestive of pneumonia. No sign of pulmonary embolus. Dictated by: Casimiro Jade M.D. on 06/08/2020 at 14:04 Approved by: Casimiro Jade M.D. on 06/08/2020 at 14:06
--- NOTE | 2020-06-08 13:26 | PM.PN.1 ---
Subjective Subjective Date Patient Seen: 06/08/20 Time Patient Seen: 13:26 Interval history: Patient feeling slightly better this morning. No chest pain. Still requiring oxygen. Still feeling somewhat weak when she gets up and moves around. But nothing specific. Exam Vital Signs (past 8 hours): - 06/08/20 07:31 06/08/20 08:21 06/08/20 08:27 Temperature 98.6 F Pulse Rate 115 H 115 H Respiratory Rate 18 22 Blood Pressure 137/73 Pulse Oximetry 94 92 92 Oxygen Delivery Method Nasal Cannula Oxygen Flow Rate 2 Narrative Exam Narrative: Alert fatigued female in no acute distress. HEENT exam is unremarkable. Neck supple without adenopathy. Lungs appear clear. Heart regular rate and rhythm without murmurs clicks rubs or gallops. Abdomen is soft positive bowel sounds nontender extremities without cyanosis clubbing edema. Had a large urinary output yesterday Objective Labs Result Diagrams: 06/07/20 05:01 06/08/20 05:07 Labs: Laboratory Results - last 24 hr 06/08/20 05:07 Sodium 134 L Potassium 3.7 Chloride 105 Carbon Dioxide 24 BUN 32 H Creatinine 1.50 H Estimated GFR 33.0 L BUN/Creatinine Ratio 21.3 Glucose 189 H Calcium 8.6 PFSH Medical History (Updated 06/07/20 @ 10:49 by Ifeanyi Talbot MD) CHF (congestive heart failure) HTN (hypertension) Hypoglycemia Palpitations Paroxysmal atrial fibrillation Stable angina Surgical History No pertinent past surgical history Social History household members: children Smoking Status: Never smoker alcohol intake: current Assessment & Plan Assessment & Plan narrative: Acute respiratory failure. Still requiring oxygen. Thought to be secondary to fluids which still could be but her echo looked good certainly could be partly related to her intermittent atrial fibrillation which she is going to have her rate seems pretty well controlled. At this point I am not absolutely sure this is pulmonary and will obtain CT scan. His CT scans negative will also give extra Lasix today if she is offer O2 tomorrow will send home will send home with oxygen issues not. Patient understands questions answered will see what pulmonary exam shows. Atrial fibrillation. Rate is much improved in control echo shows no abnormality at this point we need Cardiology to evaluate and hopefully have a plan she may need amiodarone but will get an outpatient appointment. Certainly good rate control. UTI. Afebrile no evidence of significant issue she was pansensitive E coli at this point will continue antibiotics may discontinue on discharge. Acute kidney injury appears to be doing well. Batool stable. Problem is were going to give her diet today and give her Lasix will have to check what it does tomorrow. Will follow closely. Fatigue weakness combination of multiple things continue physical therapy Disposition. Pressure with that much different than when she came which she does seem to be more alert. At this point will discharge tomorrow regardless of findings in the something major comes up and follow up as an outpatient.
--- NOTE | 2020-06-08 14:19 | PC.NURSE ---
Off floor for Chest CT. Returned to room, used BR, and back in chair.
[2020-06-08] MEDS: FUROSEMIDE 20 MG/2 ML VIAL IV (14:35)
--- NOTE | 2020-06-08 15:53 | CM.DPC ---
DCP Continued: PRODUCTION PLANNER SCHEDULER Student met with patient and Daughter patient sitting in chair, educated on role of SW and provided contact number. Patient presented alert and oriented this date she confirmed she anticipates to D/C home with daughter Jackie Avendano . Patient anticipates her friend Rosalina will provide transportation . Patient signed DAYNA for potential D/C tomorrow. Provided education general HH education and [facility] pamphlet. She is aware and agreeable to [facility], F2F signed by Dr. Mahan this date. Patient and daughter reported besides HH they have set-up daily care with [facility]. Additional D/C information: Provided patient with Dr. Crum?s phone number to set-up follow-up appointment once D/C from hospital. Reparatory therapist reported it is unclear at this time if patient will need 02 at home. PLAN: Anticipate D/C home with HH when stable. CM Team to continue to follow patient. BIN Cifuentes MSW Student Discharge Planning/Care Management Document 06/08/20 15:49 AL (Rec: 06/08/20 15:53 AL [id number]) Discharge Planning Assessment Assigned [employer] BIN [place] Student Contact Information Jackie Avendano, Daughter [phone] Advance Directives? Yes: POLST Advance Directives on File Yes History Provided By Patient,Family Member,Medical Record Has Patient been admitted in last 30 Yes days? Comment 05/07/20 Prior Living Arrangements House Household Members children Type of transporation used prior to Drives own vehicle admit Independent with ADL's Yes Is patient alert and oriented? Yes Caregiver for Another No Community Services used prior to Physical Therapy admission: DME Already Rented / Owned FWW / Walker Barriers to Discharge No Discharge Plan Home Transportation Arrangement Friend anticipated to provide transportation upon D/C: Rosalina . Referrals Initiated Home Health If patient plan is home with home health Yes : Has signed face to face form been completed? Whiteboard Updated in Patient Room with Yes name and ext. # of [employer] Review Status In Process Next Review Type Continued Stay Review
[2020-06-08] MEDS: ROSUVASTATIN 10 MG TABLET 5 MG PO (21:02)
[2020-06-08] MEDS: INSULIN GLARGINE 100 UNIT/ML 3ML PEN 22 UNIT SUBCUT (21:03)
[2020-06-09] VITALS (7 sets, daily range): BP systolic 120–151; BP diastolic 78–90; PULSE 90–122; RESP 16–18; TEMP 36.4–36.8; O2SAT 91–93
[2020-06-09 05:50] LABS: Add Manual Diff / Slide Review NO; Basophils Absolute Auto 0 /uL (0-100); Basophils Percent Auto 0.4 % (0-2); Eosinophils Absolute Auto 100 /uL (0-450); Eosinophils Percent Auto 1.4 % (2-4); Hematocrit 29.4 % (36-46); Lymphocytes Absolute Auto 1000 /uL (1100-4500); Lymphocytes Percent Auto 9.2 % (25-40); Mean Corpuscular HGB Conc 33.9 % (30-36); Mean Corpuscular Hemoglobin 28.4 PG (26-34); Mean Corpuscular Volume 83.5 fL (80-100); Monocytes Absolute Auto 1000 /uL (0-900); Monocytes Percent Auto 9.2 % (3-14); Neutrophils Absolute Auto 8300 /uL (1500-7000); Neutrophils Percent Auto 79.8 % (50-75); Platelet Count 356 X10^3/uL (150-400); Red Blood Cell Count 3.52 X10^6/uL (4.0-5.2); Red Cell Distribution Width 14.8 % (11.6-14.8); White Blood Cell Count 10.4 X10^3/uL (4.5-11.0)
[2020-06-09 05:59] LABS: BUN Creatinine Ratio 21.8 (6-22); Blood Urea Nitrogen 32 mg/dL (7-17); Calcium 8.8 mg/dL (8.4-10.2); Carbon Dioxide 28 mmol/L (22-32); Chloride 104 mmol/L (98-107); Estimated Glomerular Filt Rate 33.8 mL/min (>60); Glucose 87 mg/dL (80-110); HEMOLYSIS < 15 (0-50); Potassium 3.2 mmol/L (3.4-5.1); Sodium 135 mmol/L (137-145)
[2020-06-09] MEDS: LEVOTHYROXINE 125 MCG TABLET PO (06:30)
[2020-06-09] MEDS: PANTOPRAZOLE 20 MG TABLET PO (06:30)
[2020-06-09] MEDS: CEFTRIAXONE 1 GM/50 ML FROZ.PIGGY IV (08:46)
[2020-06-09] MEDS: LOSARTAN 50 MG TABLET PO (08:52)
[2020-06-09] MEDS: POTASSIUM CHLORIDE 10 MEQ TAB PO (08:52)
[2020-06-09] MEDS: predniSONE 1 MG TABLET 3 MG PO (08:53)
[2020-06-09] MEDS: predniSONE 5 MG TABLET PO (08:53)
[2020-06-09] MEDS: FUROSEMIDE 20 MG/2 ML VIAL IV (08:54)
[2020-06-09] MEDS: DOCUSATE 100 MG CAPSULE PO (08:54)
[2020-06-09] MEDS: RIVAROXABAN 10 MG TABLET 15 MG PO (08:54)
[2020-06-09] MEDS: atenoloL 50 MG TABLET PO (08:54)
[2020-06-09] MEDS: dilTIAZem CD 240 MG CAP PO (08:54)
[2020-06-09] MEDS: SODIUM CHLORIDE 0.9% FLUSH 10 ML IV (08:55)
--- NOTE | 2020-06-09 10:36 | PT.IPTN ---
Current Diagnoses Acute cystitis without hematuria (06/03/20) Physical Therapy Treatment Note M2 PT-IP Current Condition Start: 06/06/20 15:15 Freq: NEEDED Status: Discharge Protocol: Document 06/06/20 14:30 AB (Rec: 06/06/20 15:27 AB [id number]) Physical Therapy Current Condition Current Condition Evaluation Date 06/06/20 Treatment Diagnosis dehydration; a-fib; difficulty in walking Onset Date 06/03/20 M3 PT-IP Subjective Start: 06/06/20 15:15 Freq: NEEDED Status: Discharge Protocol: Document 06/09/20 10:36 AB (Rec: 06/09/20 12:52 AB [id number]) Subjective Physical Therapy Visit Type Type Treatment Note Visit Start Time 10:36 Visit Stop Time 10:52 Total Visit Minutes 16 Number of HOSPITAL ATTENDANT Visits 0 Physical Therapy Visit Comments Patient Comments pt is agreeable to do PT M4 PT-IP Mobility and Gait Start: 06/06/20 15:15 Freq: NEEDED Status: Discharge Protocol: Document 06/09/20 10:36 AB (Rec: 06/09/20 12:52 AB [id number]) PT-Transfer Assessment Sit to and From Stand Sit to and from Stand Standby Assistance Equipment Transfer Assistive Device Gait Belt,Front Wheeled Walker Orthotic/Prosthetic Devices or Brace: No Transfers Transfer Destination Toilet Transfer Technique ambulated using FWW Transfer Ability Level of Assist Standby Assistance Comments Mobility Comments daughter in room with pt. pt completed sit to stand SBA and requested to use the toilet. ambulated using fWW to the toilet SBA. completed toileting SBA and ambulated to the sink using FWW SBA. pt was able to maintain standing SBA. agreed to do stairs and ambulated using FWW SBA to occasional CGA towards the stairs. completed up/down steps using L rail CGA. educated pt on safety and do a step to pattern instead of step through for safety and stability. pt complete 1 set and stated that she is tired and that she does not want to get more tired before she goes home. assisted pt back to her room on a w/c. ambulated from w/c to chair using FWW SBA. positioned on chair. call light and table placed within reach. left pt with her daughter in room. Gait Assessment Gait Gait Assistance Required: Standby Assistance,Contact Guard Assist Distance (Feet) 150 Able to Maintain Weight Bearing Status Yes During Gait Assistive Devices Assistive Device Gait Belt,Front Wheeled Walker Orthotic/Prosthetic Devices or Brace: No Gait Deviations General Gait Pattern Decreased Stride Length, Decreased Feet Clearance, Flexed Trunk,Step-to Gait Factors Limiting Gait Function Factors Limiting Gait Function Decreased Activity Tolerance, Decreased Strength,Poor Balance,Poor Safety Awareness Stair Climbing Assessment Evaluation Level of Assist On Stairs Contact Guard Assistance Devices Stair Climbing Assistive Devices Left Railing Technique/Endurance Stair Climbing Direction Ascend and Descend Stair Climbing Technique Step to Step Number of Steps Climbed 3 Stair Climbing Set # Repetitions (reps) 1 M5 PT-IP Objective Assessments Start: 06/06/20 15:15 Freq: NEEDED Status: Discharge Protocol: Document 06/06/20 14:30 AB (Rec: 06/06/20 15:27 AB [id number]) Orientation Orientation/Cognition Level of Alertness Alert Orientation Name,Place,Situation Safety Awareness Decreased Safety Awareness Gross Range of Motion Lower Extremity ROM Assessment Within Functional Limits Strength Lower Extremity Strength Assessment Within Functional Limits Coordination Assessment Gross Coordination Gross Coordination WNL Sensation Assessment Sensation Gross Sensation WNL Muscle Tone Muscle Tone WNL Yes M6 PT-IP Treatment Start: 06/06/20 15:15 Freq: NEEDED Status: Discharge Protocol: Document 06/09/20 10:36 AB (Rec: 06/09/20 12:52 AB [id number]) Physical Therapy Treatment Education Education Provided Safety M7 PT-IP Assessment and Plan Start: 06/06/20 15:15 Freq: NEEDED Status: Discharge Protocol: Document 06/09/20 10:36 AB (Rec: 06/09/20 12:52 AB [id number]) PT Summary Assessment and Plan Potential Rehabilitation Potential Good Summary Impairments Pain,ROM,Strength,Balance, Coordination,Cognition,Bed Mobility,Transfers,Gait, Activity Tolerance Progress Towards Goals Slow Progress due to Activity Tolerance Assessment Summary pt requiring SBA to CGA with mobility using FWW. pt plans to go home today and her daughter will be assisting her . pt continues to present with decrease activity tolerance and will benefit from HHPT to improve overall strength and mobility independence. Goals Bed Mobility Goal Independent Transfer Goal Independent,Front Wheeled Walker Gait Goal Independent,Front Wheel Walker Gait Distance 200 Other Goals improve ambulation without AD 250 ft SBA up/down 7 steps with 1 rail SBA Days to Meet Goals 10 Frequency of Treatment Frequency Of Treatment Once a Day Treatment Plan Physical Therapy Treatment Plan Bed Mobility Training,Transfer Training,Gait Training, Therapeutic Exercise,Balance Retraining,Discharge Planning, Hot or Cold Pack,Neuromuscular Re-ed,Coordination Retraining Other Recommendations and Next Treatment ambulation Focus Recommendations To Nursing Amount of Assist Needed 1 Person Assist Discharge Recommendations PT Discharge Recommendations Home with Assistance,Home Health Transportation Needs at Discharge Private Vehicle
--- NOTE | 2020-06-09 11:55 | CM.DPC ---
DCP Continued: Patient is pending D/C this date. Jackie from [facility] was called and made aware this date. Faxed over the following documents to initiate RN/PT: Demographics face-sheet, F2F sheet, HH order, medication list and physical therapy note. PLAN: Patient to D/C home with HH with PT/ Nursing, paperwork faxed. BIN Cifuentes MSW Student
--- NOTE | 2020-06-09 12:02 | PC.NURSE ---
Day shift: Pt left unit via WC at approx 1200. Paperwork singed and all questions answered. New MD scripts sent to Pt's pharmacy electronic. VS WNL. RA. No pain or nausea. BG controlled well. Pt has all personal belongings. Connoshoer is to call Pt and set up. Pt and Pt's daughter encouraged to steven Adam tomorrow morning if they don't hear from them today. Pt has F/u w/ [facility] in 5 days and that appointment is already made.
--- NOTE | 2020-06-09 13:21 | PM.DS.1 ---
History of Present Illness History of Present Illness Chief complaint: vomiting/dehydration Narrative: Patient here for evaluation of 3-4 day history of nausea vomiting and fatigue. Patient had been doing okay and somewhat slowly began having increased nausea. She was not taking fluids. She has been not having any urine output much. She is having no abdominal pain. But has been vomiting consistently. She has been sleeping up most of yesterday and today. Daughter quite concerned. Has been arousable on doing okay but just goes right back to sleep. Not taking her meds. Has had no headache. No numbness tingling no shortness of breath. No cough. No abdominal discomfort. She has had no urinary changes. Her sugars have been mostly okay and she has only been taking her insulin intermittently. No on else in the family has been sick there has been no real exposure for other changes. She was seen in clinic today where her blood pressure was slightly elevated and she was having difficulty with the strength to move much. At that point decision to admit was made. Has been dizzy being lightheaded but has not passed out. Struggles with moving positions. Patient otherwise has been feeling well she was recently in April to been added for uncontrolled atrial fibrillation secondary to not taking her medicine on a consistent basis. Past medical history: Diabetes mellitus type 2 Hypertension Hyperlipidemia Atrial fibrillation Hypothyroidism Polymyalgia rheumatica Migraine Depression IBS Past surgical history: Partial hysterectomy Cholecystectomy Family history: Father: MA, coronary artery disease, hypertension Mother: Alcoholism, heart disease Siblings: Heart disease, depression, hyperlipidemia Social history: Retired Discharge Providers Provider Date of admission: 06/03/20 15:45 Discharge Date: 06/09/20 Primary care physician: Benigno Mahan MD Consults: 06/03/20 18:21 Consult to Discharge Planning Routine Comment: 06/06/20 10:02 Consult to Physical Therapy Evaluate & Treat Comment: Physician Instructions: Evaluate and Treat 06/09/20 09:12 Consult to Home Health Routine Comment: DX: increased weakness Reason For Exam: 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 She was treated for 7 full days was asymptomatic and did well. Cultures grew out E coli which was pansensitive. She had no other significant changes had a normalized white count and no evidence of blood culture changes and will be followed as an outpatient. Nausea and vomiting. Patient came in with somewhat of the dwindles. Showed no definitive findings on her original workup except for UTI. She was began on antibiotics given anti nausea medicine was feeling better after 24 hours after 40 hours most of her nausea and vomiting were resolved. She had not had any further problems after that. Patient was found on initial evaluation to be dehydrated. She was hydrated gently over the 1st 48 hours and was taking p.o. after that. She was doing well and IV hydration was overall min to be discontinued. She had no further issues and was followed. She was taking p.o. well and did well Acute congestive heart failure. Patient was noted after day 3 to start having congestive heart failure symptoms. She was started on IV Lasix and initially was intended to be discontinued on her IV hydration but she was started on further hydration. That was recognized after another 24 hours. She had IV therapy with Lasix having an excellent output on day 3 of that therapy. She seems to be doing well. She did have a slightly decreased potassium but it will be followed as an outpatient and with reduced Lasix she should correct with oral treatment. It is felt that this was secondary mostly secondary to AFib and patient probably needs more of her atrial kick then suspected. Her echo does not show significant LV dysfunction but is felt to be significant Atrial kick to cause systolic congestive heart failure. She will be followed as an outpatient by Cardiology. Acute respiratory failure. Patient was noted to be hypoxic on day 3 although this was secondary to congestive heart failure. She did have a CT scan which showed blur all effusions bilaterally which was felt to be secondary to congestive heart failure. If they were not large enough to need to be drained. There was no restrictions in the will be followed as an outpatient hopefully as we diurese her this will improve will recheck in 2 weeks. Fatigue and weakness. Patient has been fatigued. It is felt to be a combination of her UTI and her atrial fibrillation. 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 Will consider outpatient physical therapy once although this is under taken. Status at Discharge Cognitive/behavioral status at discharge: oriented Functional status at discharge: independent ambulation Overall status at discharge: patient is progressing back to baseline Exam Vital Signs (past 8 hours): - 06/09/20 07:40 06/09/20 08:52 06/09/20 09:25 Temperature 98.2 F Pulse Rate 122 H 112 H 112 H Respiratory Rate 17 16 Blood Pressure 151/82 H 120/90 120/90 Pulse Oximetry 92 06/09/20 10:06 Temperature Pulse Rate Respiratory Rate Blood Pressure Pulse Oximetry 93 Oxygen Delivery Method Room Air Oxygen Flow Rate 0 Narrative Exam Narrative: Alert elderly female without O2 on and much less fatigued appearance HEENT exam is unremarkable. Mucous membranes moist. Neck supple without adenopathy. Lungs appear clear. Ergophony. Heart ist irregular rhythm but controlled rhythm. Abdomen is soft positive bowel sounds nontender extremities without cyanosis clubbing edema Objective Labs Result Diagrams: 06/09/20 05:26 06/09/20 05:26 Labs: Laboratory Results - last 24 hr 06/09/20 06/09/20 05:26 05:26 WBC 10.4 RBC 3.52 L Hgb 10.0 L Hct 29.4 L MCV 83.5 MCH 28.4 MCHC 33.9 RDW 14.8 Plt Count 356 Neut % (Auto) 79.8 H Lymph % (Auto) 9.2 L [place] % (Auto) 9.2 Eos % (Auto) 1.4 L Baso % (Auto) 0.4 Neut # (Auto) 8300 H Lymph # (Auto) 1000 L [place] # (Auto) 1000 H Eos # (Auto) 100 Baso # (Auto) 0 Sodium 135 L Potassium 3.2 L Chloride 104 Carbon Dioxide 28 BUN 32 H Creatinine 1.47 H Estimated GFR 33.8 L BUN/Creatinine Ratio 21.8 Glucose 87 D Calcium 8.8 [facility] Medical History (Updated 06/07/20 @ 10:49 by Ifeanyi Talbot MD) CHF (congestive heart failure) HTN (hypertension) Hypoglycemia Palpitations Paroxysmal atrial fibrillation Stable angina Surgical History No pertinent past surgical history Social History household members: children Smoking Status: Never smoker alcohol intake: current Discharge Assessment & Plan Assessment and Plan Assessment: Discharge home with close follow-up with me and hopefully Cardiology. Patient will call if any issues. Discharge Plan Discharge Plan Patient Disposition: Home Discharge orders & Medications Prescriptions: New diltiazem HCl [Cardizem CD] 240 mg Capsule,Extended Release 24hr 240 mg PO DAILY Qty: 30 RF: 3 potassium chloride [Klor-Con M10] 10 mEq Tablet,Er Particles/Crystals 10 meq PO BIDWM Qty: 30 RF: 2 atenolol 50 mg Tablet 50 mg PO BID Qty: 60 RF: 0 Continued ezetimibe [Zetia] 10 MG tablet 10 mg PO DAILY Qty: 0 RF: 0 insulin lispro [Humalog U-100 Insulin] 100 UNIT/1 ML solution See Protocol sliding scale dose SUBCUT DIRECTED PRN (Reason: sliding scale) Qty: 0 RF: 0 prednisone 5 mg tablet 5 mg PO QAM RF: 0 allopurinol 100 mg tablet 100 mg PO DAILY RF: 0 levothyroxine 125 mcg tablet 125 mcg PO DAILY RF: 0 rivaroxaban 15 mg tablet 15 mg PO DAILY RF: 0 meclizine 12.5 mg Tablet 12.5 - 25 mg PO BEDTIME PRN (Reason: Dizziness) RF: 0 colchicine [Colcrys] 0.6 mg Tablet See Rx Instructions .ROUTE .COMPLEX MDD 3 tab PRN (Reason: Gout) RF: 0 amlodipine [Norvasc] 5 mg tablet 5 mg PO DAILY RF: 0 rosuvastatin 10 mg tablet 5 mg PO BEDTIME RF: 0 furosemide 20 mg tablet 20 mg PO DAILY Qty: 30 RF: 1 chlorthalidone 25 mg tablet 25 mg PO DAILY RF: 0 prednisone 1 mg tablet 3 mg PO QAM RF: 0 acetaminophen 325 mg Tablet 325 mg PO PRN PRN (Reason: pain) RF: 0 Lantus Solostar U-100 Insulin 100 unit/mL (3 mL) insulin pen 22 unit SUBCUT QPM RF: 0 Lantus Solostar U-100 Insulin 100 unit/mL (3 mL) Insulin Pen 24 unit SUBCUT QAM RF: 0 Discontinued losartan 50 mg tablet 50 mg PO DAILY RF: 0 atenolol 25 mg tablet 50 mg PO DAILY RF: 0 hydralazine 25 mg tablet 25 mg PO DAILY RF: 0 No Action (DME) FreeStyle Thomas 14 Day Sensor Kit MISCELLANEOUS RF: 0 Follow up/Referrals: Bere Crum MD [Physician] - 06/12/20 9:20 am (appt:06/12 @ 9:40 please arrive @ 9:[address] in [address] barnes in the [facility] cardiology clinic office ) Benigno Mahan MD [Primary Care Provider] - 06/16/20 (patient already has a appointment with me) Discharge Health Status Multidrug resistant organism: No MDRO Diet/Activity/Treatments Diet: Carb-consistent/Diabetic Activity: as tolerated Skin/Wound/Dressing Care Report to your healthcare provider any signs of infection, such as:: chills, fever, night sweats and increased pain Visit Report/Discharge Packet Instructions: Potassium, Heart Failure, DI for Heart Failure, DI for Urinary Tract Infection (UTI), How to Prevent Falls, Diltiazem, Atenolol Discharge Data Primary Care Provider: Benigno Mahan
== END 2020-06-09 12:06 | disposition home health service (06) | DRG 689 ==
PROVIDERS: Family Medicine; Internal Medicine; Admitting Provider Family Medicine; PCP Family Medicine; Referring Provider Family Medicine; Visit Provider Family Medicine
DX: N39.0 Urinary tract infection, site not specified (principal); I50.21 Acute systolic (congestive) heart failure; J96.01 Acute respiratory failure with hypoxia; N17.9 Acute kidney failure, unspecified; E87.1 Hypo-osmolality and hyponatremia; B96.20 Unspecified Escherichia coli [E. coli] as the cause of diseases classified elsewhere; E86.0 Dehydration; R13.10 Dysphagia, unspecified; I48.0 Paroxysmal atrial fibrillation; I11.0 Hypertensive heart disease with heart failure; E11.9 Type 2 diabetes mellitus without complications; E78.5 Hyperlipidemia, unspecified; E03.9 Hypothyroidism, unspecified; M35.3 Polymyalgia rheumatica; F32.9 Major depressive disorder, single episode, unspecified; Z79.4 Long term (current) use of insulin; Z66 Do not resuscitate; Z20.822 Contact with and (suspected) exposure to COVID-19
CPT/HCPCS: 36415; 71275; 74022; 80048; 80053; 81001; 82962; 83735; 85007; 85025; 87040; 87077; 87086; 87186; 87635; 94618; 94640; 94762; 97110; 97116; 97161; 97530; 99233; C9803; C9113; J1940; J1956; J2405; J3480; J7050; J7613; Q9967

== ENCOUNTER → 2020-06-25 08:03 | Outpatient (CLI) | payer MEDICARE, OTHER, SELFPAY ==
[2020-06-03 16:32] VITALS: BMI 27.6
[2020-06-25 09:41] LABS: Alanine Aminotransferase 38 IU/L (<35); Albumin Globulin Ratio 1.2 (1.0-2.8); Alkaline Phosphatase 77 U/L (38-126); Aspartate Aminotransferase 43 IU/L (14-36); Bilirubin Total 0.6 mg/dL (0.2-1.3); Blood Urea Nitrogen 44 mg/dL (7-17); Calcium 9.6 mg/dL (8.4-10.2); Carbon Dioxide 29 mmol/L (22-32); Chloride 100 mmol/L (98-107); Globulin 3.4 g/dL (1.7-4.1); Glucose 148 mg/dL (80-110); HEMOLYSIS < 15 (0-50); Potassium 3.4 mmol/L (3.4-5.1); Sodium 138 mmol/L (137-145); Total Protein 7.4 g/dL (6.3-8.2)
[2020-06-25 10:16] LABS: Thyroid Stimulating Hormone 0.214 uIU/mL (0.47-4.68)
[2020-07-02 13:47] LABS: LDL Particle SEE SEPARATE REPORTS
== END ==
PROVIDERS: PCP Family Medicine; Referring Provider Specialist; Visit Provider Specialist
DX: E78.5 Hyperlipidemia, unspecified (principal); I10 Essential (primary) hypertension; I48.91 Unspecified atrial fibrillation; I48.0 Paroxysmal atrial fibrillation
CPT/HCPCS: 36415; 80053; 80061; 83704; 83735; 84443

== ENCOUNTER 2020-06-29 15:38 | Emergency (ER) | payer MEDICARE, OTHER, SELFPAY ==
[2020-06-29] VITALS (7 sets, daily range): BP systolic 132–167; BP diastolic 81–99; PULSE 112–118; RESP 16–29; TEMP 36.4–36.7; O2SAT 97–98; BMI 25.9
--- NOTE | 2020-06-29 16:14 | DI.RAD.S_ITS ---
PROCEDURE: XR CHEST 1V INDICATIONS: sob TECHNIQUE: One view of the chest was acquired. COMPARISON: [facility], CR, XR CHEST 1V, 05/07/2020, 10:20. [facility], CR, XR CHEST 1V, 03/23/2020, 13:21. 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 Lungs and pleura: No consolidation. Prominent pulmonary markings bilaterally similar to the prior exam. No pleural effusions or pneumothorax. Mediastinum: Mediastinal contours appear normal. Heart size is normal. Bones and chest wall: No suspicious bony lesions. Overlying soft tissues appear unremarkable. IMPRESSION: Prominent pulmonary markings bilaterally similar to the prior exam. This could be due to emphysematous change. Pulmonary edema could have a similar appearance. No consolidation. Dictated by: Dominic Muller M.D. on 06/29/2020 at 15:43 Approved by: Dominic Muller M.D. on 06/29/2020 at 15:44
--- NOTE | 2020-06-29 16:24 | PC.NURSE ---
patient was on atenolol and two weeks ago was switched to metoprolol. Since then she has been in afib and has not come out of it. She is on xarelto and has not missed any days. She denies past cardioversion or ablation
[2020-06-29 16:30] LABS: Add Manual Diff / Slide Review NO; Basophils Absolute Auto 100 /uL (0-100); Basophils Percent Auto 1.2 % (0-2); Eosinophils Absolute Auto 400 /uL (0-450); Eosinophils Percent Auto 3.3 % (2-4); Hematocrit 32.2 % (36-46); Hemoglobin 10.7 g/dL (12.0-16.0); Lymphocytes Absolute Auto 2200 /uL (1100-4500); Lymphocytes Percent Auto 19.7 % (25-40); Mean Corpuscular HGB Conc 33.2 % (30-36); Mean Corpuscular Hemoglobin 28.2 PG (26-34); Monocytes Absolute Auto 1100 /uL (0-900); Neutrophils Absolute Auto 7200 /uL (1500-7000); Neutrophils Percent Auto 65.8 % (50-75); Platelet Count 189 X10^3/uL (150-400); Red Blood Cell Count 3.79 X10^6/uL (4.0-5.2); White Blood Cell Count 10.9 X10^3/uL (4.5-11.0)
[2020-06-29 16:34] LABS: INR 2.5 (0.9-1.3); Prothrombin Time 28.3 SECONDS (10.1-12.7)
[2020-06-29 16:37] LABS: PTT Partial Thromboplastin Tim 32 SECONDS (26.4-36.2)
--- NOTE | 2020-06-29 16:39 | ED.ARRPALP ---
HPI - Arrhythmia/Palpitations General Chief Complaint: Arrhythmia/Palpitations Stated Complaint: AFIB Time Seen by Provider: 06/29/20 16:13 Source: patient Mode of arrival: Family Vehicle Limitations: no limitations History of Present Illness HPI narrative: Patient is a 84-year-old female history of atrial fibrillation, congestive heart failure presenting with increasing shortness of breath. She actually was admitted last month with acute congestive heart failure AFib with RVR and UTI. She states she is supposed to be taking Lasix twice a day however the last couple of days she has not been taking her evening an afternoon dose because she feels like she gets dehydrated and feels very weak and lethargic in the morning. The now she only takes her Lasix once a day in the morning. She denies any orthopnea or peripheral edema. She has not had any fever chills or cough. She does get short of breath when she walks. Related Data Home Medications Medication Instructions Recorded Confirmed ezetimibe [Zetia] 10 mg PO DAILY #0 10/16/12 06/03/20 insulin lispro [Humalog U-100 See Protocol SUBCUT DIRECTED 05/31/16 06/03/20 Insulin] PRN #0 chlorthalidone 25 mg PO DAILY 01/25/18 06/03/20 allopurinol 300 mg PO DAILY 08/08/18 06/29/20 levothyroxine 125 mcg PO DAILY 08/08/18 06/03/20 prednisone 5 mg PO QAM 08/08/18 06/03/20 rivaroxaban 15 mg PO DAILY 08/08/18 06/03/20 colchicine [Colcrys] See Rx Instructions .ROUTE 01/28/19 06/29/20 .COMPLEX PRN MDD 3 tab meclizine 12.5 - 25 mg PO BEDTIME PRN 01/28/19 06/03/20 FreeStyle Thomas 14 Day Sensor 05/28/19 06/03/20 Lantus Solostar U-100 Insulin 22 unit SUBCUT QPM 05/28/19 06/03/20 acetaminophen 325 mg PO PRN PRN 05/28/19 06/03/20 prednisone 3 mg PO QAM 05/28/19 06/05/20 Lantus Solostar U-100 Insulin 24 unit SUBCUT QAM 05/07/20 06/03/20 amlodipine [Norvasc] 10 mg PO DAILY 06/03/20 06/29/20 rosuvastatin 5 mg PO BEDTIME 06/03/20 06/29/20 Previous Rx's Medication Instructions Recorded diltiazem HCl [Cardizem CD] 240 mg PO DAILY #30 cap 06/09/20 furosemide 20 mg PO DAILY #30 tab 06/09/20 potassium chloride [Klor-Con M10] 10 meq PO BIDWM #30 tab 06/09/20 Allergies Allergy/AdvReac Type Severity Reaction Status Date / Time kiwi Allergy Severe ANAPHYLAXIS Verified 06/29/20 15:47 Sulfa (Sulfonamide Allergy Severe unknown Verified 06/29/20 15:47 Antibiotics) meperidine AdvReac Severe I GO NUTS Verified 06/29/20 15:47 morphine AdvReac Severe DIZZY Verified 06/29/20 15:47 Review of Systems Review of Systems ROS Unobtainable: All systems reviewed & are unremarkable except as noted in HPI and below Constitutional Constitutional: Denies chills, Denies fever(s), Denies lethargy and Denies weakness Eyes Eyes: Denies change in vision, Denies eye discharge, Denies irritation and Denies loss of vision ENT Ears, Nose, Mouth, and Throat: Denies change in voice, Denies neck pain and Denies sore throat Cardiovascular Cardiovascular: Reports as per HPI Musculoskeletal Musculoskeletal: Denies back pain, Denies myalgias, Denies loss of height and Denies neck pain Integumentary/Breasts Skin/Breast: Denies pruritus, Denies erythema, Denies rash and Denies wounds Neurologic Neurologic: Denies loss of vision and Denies weakness Patient History Medical History (Updated 06/29/20 @ 18:56 by Naomi Yañez DO) CHF (congestive heart failure) HTN (hypertension) Hypoglycemia Palpitations Paroxysmal atrial fibrillation Stable angina Surgical History No pertinent past surgical history Social History household members: children Smoking Status: Never smoker alcohol intake: current Smoking Status: Never smoker alcohol intake frequency: 0-2 drinks per day Alcohol type: hard liquor Substance Use Type: does not use Exam Initial Vital Signs Initial Vital Signs: Vital Signs Temperature 98.1 F 06/29/20 15:43 Pulse Rate 117 H 06/29/20 15:43 Respiratory Rate 22 06/29/20 15:43 Blood Pressure 132/88 06/29/20 15:43 Pulse Oximetry 98 06/29/20 15:43 GENERAL: Alert pleasant 84-year-old female and in [no acute] distress. HEENT: Head atraumatic,EOMI, pupils reactive, face symmetric, [moist] mucous membranes CARDIOVASCULAR: Tachycardic irregularly irregular no murmur RESPIRATORY: Breath sounds equal bilaterally, no wheezes rales or rhonchi. ABDOMEN: Soft, nontender. Normoactive bowel sounds all 4 quadrants. No guarding or rebound. EXTREMITIES: Normal range of motion, no clubbing or edema. Neurovascularly intact NEUROLOGICAL: Alert and oriented x4.Normal gait and speech. Cranial nerves II through XII grossly intact. SKIN: Warm, dry, no laceration, no petechiae, no rashes or lesions. Course Orders Ordered: Discontinued Medications Furosemide (Furosemide 40 Mg/4 Ml Vial) 40 mg IV NOW ONE Stop: 06/29/20 17:37 Last Admin: 06/29/20 18:47 Dose: Not Given Documented by: ANI Furosemide (Furosemide 40 Mg/4 Ml Vial) 20 mg IV NOW ONE Stop: 06/29/20 18:03 Last Admin: 06/29/20 18:04 Dose: 20 mg Documented by: ANI Vital Signs Vital signs: Vital Signs - 8 hr 06/29/20 15:43 06/29/20 15:52 06/29/20 16:00 Temperature 98.1 F Pulse Rate 117 H 112 H 114 H Respiratory Rate 22 20 24 Blood Pressure 132/88 Pulse Oximetry 98 98 98 06/29/20 16:08 06/29/20 16:30 06/29/20 17:00 Temperature Pulse Rate 118 H 113 H 114 H Respiratory Rate 22 29 H 26 H Blood Pressure 167/99 H 167/81 H 150/82 H Pulse Oximetry 97 98 97 06/29/20 19:23 Temperature 97.5 F L Pulse Rate 115 H Respiratory Rate 16 Blood Pressure 148/82 H Pulse Oximetry 97 MDM - Arrhythmia/Palpitations Lab Data Attestation: I reviewed the patient's lab results. Result diagrams: 06/29/20 16:19 06/29/20 16:19 Labs: Lab Results 06/29/20 06/29/20 06/29/20 Range/Units 16:19 16:19 16:19 WBC 10.9 (4.5-11.0) X10^3/uL RBC 3.79 L (4.0-5.2) X10^6/uL Hgb 10.7 L (12.0-16.0) g/dL Hct 32.2 L (36-46) % MCV 85.0 (80-100) fL MCH 28.2 (26-34) PG MCHC 33.2 (30-36) % RDW 15.0 H (11.6-14.8) % Plt Count 189 (150-400) X10^3/uL Neut % (Auto) 65.8 (50-75) % Lymph % (Auto) 19.7 L (25-40) % [place] % (Auto) 10.0 (3-14) % Eos % (Auto) 3.3 (2-4) % Baso % (Auto) 1.2 (0-2) % Neut # (Auto) 7200 H (1998-5308) /uL Lymph # (Auto) 2200 (9392-9111) /uL [place] # (Auto) 1100 H (0-900) /uL Eos # (Auto) 400 (0-450) /uL Baso # (Auto) 100 (0-100) /uL PT 28.3 H (10.1-12.7) SECONDS INR 2.5 H (0.9-1.3) APTT 32 (26.4-36.2) SECONDS Sodium 140 (137-145) mmol/L Potassium 3.9 (3.4-5.1) mmol/L Chloride 104 (98-107) mmol/L Carbon Dioxide 31 (22-32) mmol/L BUN 34 H (7-17) mg/dL Creatinine 1.53 H (0.52-1.04) mg/dL Estimated GFR 32.3 L (>60) mL/min BUN/Creatinine Ratio 22.2 H (6-22) Glucose 160 H (80-110) mg/dL Calcium 9.0 (8.4-10.2) mg/dL Magnesium 2.0 (1.6-2.3) mg/dL Total Bilirubin 0.3 (0.2-1.3) mg/dL AST 29 (14-36) IU/L ALT 24 (<35) IU/L Alkaline Phosphatase 70 (38-126) U/L Total Creatine Kinase < 20 L (30-135) U/L CK-MB (CK-2) TNP CK-MB (CK-2) Rel Index TNP Troponin I < 0.012 (0.01-0.034) ng/mL NT-Pro-B Natriuret Pep 3780 H (<450) pg/mL Total Protein 6.8 (6.3-8.2) g/dL Albumin 3.7 (3.5-5.0) g/dL Globulin 3.1 (1.7-4.1) g/dL Albumin/Globulin Ratio 1.2 (1.0-2.8) Imaging Data Chest x-ray: Radiologist's Impresson: PROCEDURE: XR CHEST 1V INDICATIONS: sob TECHNIQUE: One view of the chest was acquired. COMPARISON: [facility], CR, XR CHEST 1V, 05/07/2020, 10:20. [facility], CR, XR CHEST 1V, 03/23/2020, 13:21. 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 Lungs and pleura: No consolidation. Prominent pulmonary markings bilaterally similar to the prior exam. No pleural effusions or pneumothorax. Mediastinum: Mediastinal contours appear normal. Heart size is normal. Bones and chest wall: No suspicious bony lesions. Overlying soft tissues appear unremarkable. IMPRESSION: Prominent pulmonary markings bilaterally similar to the prior exam. This could be due to emphysematous change. Pulmonary edema could have a similar appearance. No consolidation. Dictated by: Dominic Muller M.D. on 06/29/2020 at 15:43 ECG Data Attestation: I personally reviewed and interpreted this ECG as follows: Interpretation: Atrial fibrillation rate [address] changes similar to prior MDM Narrative Medical decision making narrative: Patient does not seem to be in acute respiratory failure she is able to speak in full sentences. BNP is elevated chest x-ray does show some mild pulmonary edema. She is in AFib heart rate remains below 120, but is more elevated than normal. She is given a small dose of Lasix 20 mg IV. I recommend that she take her Lasix twice a day as recommended however she would like to take it earlier and that afternoon all that may help her is problems. At this time this is unlikely PE she is anticoagulated on Xarelto. sHe overall appears well she is not requiring oxygen Discharge Plan Departure Patient Disposition: Home Clinical Impression: Atrial fibrillation with RVR Congestive heart failure Qualifiers: Heart failure type: unspecified Heart failure chronicity: acute on chronic Qualified Code(s): I50.9 - Heart failure, unspecified Instructions: DI for Heart Failure Activity Restrictions/Additional Instructions: *You have been diagnosed with congestive heart failure, atrial fibrillation *What to do: You do need to take your water pill, furosemide twice daily as recommended. You can change the time of day that you take at recommend taking her 2nd dose around 2:00 p.m. see do not have as many symptoms in the morning, and not up all night *Continue to take medications as directed Furosemide 20 mg twice a day 1 at 9:00 a.m. and 1 at 2:00 p.m. *Follow up with your primary care provider in 2-3 days *Return to ER if you should have increasing shortness of breath, chest pain, heart palpitations or any new, worsening or concerning symptoms Prescriptions: No Action ezetimibe [Zetia] 10 MG tablet 10 mg PO DAILY Qty: 0 RF: 0 insulin lispro [Humalog U-100 Insulin] 100 UNIT/1 ML solution See Protocol sliding scale dose SUBCUT DIRECTED PRN (Reason: sliding scale) Qty: 0 RF: 0 prednisone 5 mg tablet 5 mg PO QAM RF: 0 allopurinol 100 mg tablet 300 mg PO DAILY RF: 0 levothyroxine 125 mcg tablet 125 mcg PO DAILY RF: 0 rivaroxaban 15 mg tablet 15 mg PO DAILY RF: 0 meclizine 12.5 mg Tablet 12.5 - 25 mg PO BEDTIME PRN (Reason: Dizziness) RF: 0 colchicine [Colcrys] 0.6 mg Tablet See Rx Instructions .ROUTE .COMPLEX MDD 3 tab PRN (Reason: Gout) RF: 0 amlodipine [Norvasc] 5 mg tablet 10 mg PO DAILY RF: 0 rosuvastatin 10 mg tablet 5 mg PO BEDTIME RF: 0 diltiazem HCl [Cardizem CD] 240 mg Capsule,Extended Release 24hr 240 mg PO DAILY Qty: 30 RF: 3 potassium chloride [Klor-Con M10] 10 mEq Tablet,Er Particles/Crystals 10 meq PO BIDWM Qty: 30 RF: 2 furosemide 20 mg tablet 20 mg PO DAILY Qty: 30 RF: 1 chlorthalidone 25 mg tablet 25 mg PO DAILY RF: 0 prednisone 1 mg tablet 3 mg PO QAM RF: 0 (DME) FreeStyle Thomas 14 Day Sensor Kit MISCELLANEOUS RF: 0 acetaminophen 325 mg Tablet 325 mg PO PRN PRN (Reason: pain) RF: 0 Lantus Solostar U-100 Insulin 100 unit/mL (3 mL) insulin pen 22 unit SUBCUT QPM RF: 0 Lantus Solostar U-100 Insulin 100 unit/mL (3 mL) Insulin Pen 24 unit SUBCUT QAM RF: 0 Referrals: Benigno Mahan MD [Primary Care Provider] -
[2020-06-29 16:41] LABS: Alanine Aminotransferase 24 IU/L (<35); Albumin 3.7 g/dL (3.5-5.0); Albumin Globulin Ratio 1.2 (1.0-2.8); Alkaline Phosphatase 70 U/L (38-126); Aspartate Aminotransferase 29 IU/L (14-36); BUN Creatinine Ratio 22.2 (6-22); Bilirubin Total 0.3 mg/dL (0.2-1.3); Blood Urea Nitrogen 34 mg/dL (7-17); Carbon Dioxide 31 mmol/L (22-32); Chloride 104 mmol/L (98-107); Creatine Kinase < 20 U/L (30-135); Estimated Glomerular Filt Rate 32.3 mL/min (>60); Globulin 3.1 g/dL (1.7-4.1); Glucose 160 mg/dL (80-110); HEMOLYSIS < 15 (0-50); Potassium 3.9 mmol/L (3.4-5.1); Sodium 140 mmol/L (137-145); Total Protein 6.8 g/dL (6.3-8.2)
[2020-06-29 16:52] LABS: NT-proBNP (BNP-Adult 18+) 3780 pg/mL (<450); Troponin I < 0.012 ng/mL (0.01-0.034)
[2020-06-29] MEDS: FUROSEMIDE 40 MG/4 ML VIAL 20 MG IV (18:04)
== END 2020-06-29 19:26 | disposition home or self-care (01) ==
PROVIDERS: Emergency Provider Emergency Medicine; PCP Family Medicine
DX: I48.91 Unspecified atrial fibrillation (principal); I50.9 Heart failure, unspecified; Z79.01 Long term (current) use of anticoagulants
CPT/HCPCS: 36415; 71045; 80053; 82550; 83735; 83880; 84484; 85025; 85610; 85730; 93005; 93010; 96374; 99284; J1940

== ENCOUNTER 2020-07-13 08:54 | Observation (INO) | payer MEDICARE, OTHER, SELFPAY ==
[2020-07-13] VITALS (19 sets, daily range): BP systolic 130–167; BP diastolic 55–79; PULSE 55–65; RESP 16–44; TEMP 36.4–37.1; O2SAT 87–98; BMI 26.4
--- NOTE | 2020-07-13 08:55 | DI.RAD.S_ITS ---
PROCEDURE: XR CHEST 1V INDICATIONS: short of breath TECHNIQUE: One view of the chest was acquired. COMPARISON: [facility], CR, XR CHEST 1V, 06/29/2020, 16:21. FINDINGS: Surgical changes and devices: None. Lungs and pleura: Chronic emphysematous changes are seen. Subtle opacity is seen in right infrahilar region concerning for developing right lower lobe infiltrate. Subtle opacity in left retrocardiac region is seen, small infiltrate cannot be excluded. No pleural effusions or pneumothorax. Mediastinum: Tortuous thoracic aorta with aortic arch calcification is seen. Heart size is mildly enlarged. Bones and chest wall: No suspicious bony lesions. Overlying soft tissues appear unremarkable. IMPRESSION: COPD. Ill-defined opacities seen in bilateral infrahilar region slightly more prominent on the right side concerning for developing lower lobe infiltrates. No pleural effusion or pneumothorax. Dictated by: Ebenezer Munoz M.D. on 07/13/2020 at 9:22 Approved by: Ebenezer Munoz M.D. on 07/13/2020 at 9:23
--- NOTE | 2020-07-13 09:05 | ED_ITS ---
HPI - Weakness General Chief complaint: Weakness Stated complaint: fatigue x 2 months Time Seen by Provider: 07/13/20 09:01 Source: patient Mode of arrival: EMS Limitations: no limitations History of Present Illness HPI Narrative: The patient is a 84-year-old male history of diabetes and atrial fibrillation is presenting with increasing fatigue palpitations and shortness of breath. She states that she was started on amiodarone 3 days ago for her atrial fibrillation and since then she has not felt well. Last night around 3:30 a.m. she felt palpitations and shortness of breath which she says she just has not r ecovered. She has been dry heaving feeling nauseous but no abdominal pain. She is feeling short of breath now but denies any fever or chills. She denies any worsening orthopnea no pedal edema. She is complaining of palpitations but heart rate seems to be controlled in the 60s. She overall feels weak and fatigued not getting up and moving as much as she used to. Lives at home with daughter. Daughter states she has overall not been doing well over the past couple of months. MD Complaint: generalized weakness Onset (ago): hour(s) Related Data Home Medications Medication Instructions Recorded Confirmed ezetimibe [Zetia] 10 mg PO DAILY #0 10/16/12 07/13/20 insulin lispro [Humalog U-100 See Protocol SUBCUT DIRECTED 05/31/16 07/13/20 Insulin] PRN #0 allopurinol 300 mg PO DAILY 08/08/18 07/13/20 levothyroxine 125 mcg PO DAILY 08/08/18 07/13/20 prednisone 5 mg PO QAM 08/08/18 07/13/20 rivaroxaban 15 mg PO DAILY 08/08/18 07/13/20 colchicine [Colcrys] See Rx Instructions .ROUTE 01/28/19 07/13/20 .COMPLEX PRN MDD 3 tab FreeStyle Thomas 14 Day Sensor 05/28/19 06/03/20 Lantus Solostar U-100 Insulin 22 unit SUBCUT QPM 05/28/19 07/13/20 acetaminophen 325 mg PO PRN PRN 05/28/19 06/03/20 prednisone 3 mg PO QAM 05/28/19 07/13/20 Lantus Solostar U-100 Insulin 24 unit SUBCUT QAM 05/07/20 07/13/20 amlodipine [Norvasc] 10 mg PO DAILY 06/03/20 07/13/20 rosuvastatin 5 mg PO BEDTIME 06/03/20 07/13/20 amiodarone 400 mg PO BID 07/13/20 07/13/20 furosemide 20 mg PO BID 07/13/20 07/13/20 metoprolol succinate 75 mg PO BID 07/13/20 07/13/20 Previous Rx's Medication Instructions Recorded potassium chloride [Klor-Con M10] 10 meq PO BIDWM #30 tab 06/09/20 Allergies Allergy/AdvReac Type Severity Reaction Status Date / Time kiwi Allergy Severe ANAPHYLAXIS Verified 07/13/20 09:13 Sulfa (Sulfonamide Allergy Severe unknown Verified 07/13/20 09:13 Antibiotics) meperidine AdvReac Severe I GO NUTS Verified 07/13/20 09:13 morphine AdvReac Severe DIZZY Verified 07/13/20 09:13 Review of Systems Review of Systems ROS Unobtainable: All systems reviewed & are unremarkable except as noted in HPI and below Constitutional Constitutional: Denies body ache(s), Reports fatigue and Denies frequent falls ENT Ears, Nose, Mouth, and Throat: Denies dizziness Cardiovascular Cardiovascular: Reports as per HPI, Reports chest pain, Reports irregular heart rhythm, Reports dyspnea and Reports dyspnea on exertion Respiratory Respiratory: Reports as per HPI, Denies cough, Reports dyspnea, Reports dyspnea on exertion and Denies wheezing Gastrointestinal Gastrointestinal: Denies abdominal pain, Denies dyspepsia, Reports nausea and Denies vomiting Genitourinary Genitourinary: Denies urinary hesitancy and Denies urinary urgency Genitourinary: Denies urinary hesitancy and Denies urinary urgency Musculoskeletal Musculoskeletal: Denies back pain, Denies myalgias and Denies numbness Integumentary/Breasts Skin/Breast: Denies pruritus, Denies erythema, Denies rash and Denies wounds Neurologic Neurologic: Denies behavioral changes, Denies confusion, Denies dizziness, Denies frequent falls and Denies numbness Psychiatric Psychiatric: Denies behavioral changes and Denies confusion Endocrine Endocrine: Reports fatigue Allergic/Immunologic Allergic/Immunologic: Denies wheezing Patient History Medical History CHF (congestive heart failure) HTN (hypertension) Hypoglycemia Palpitations Paroxysmal atrial fibrillation Stable angina Surgical History No pertinent past surgical history Social History household members: children Smoking Status: Never smoker alcohol intake: current Smoking Status: Never smoker alcohol intake frequency: 0-2 drinks per day Alcohol type: hard liquor Substance Use Type: does not use Exam Initial Vital Signs Initial Vital Signs: Vital Signs Temperature 98.8 F 07/13/20 08:47 Pulse Rate 65 07/13/20 08:47 Respiratory Rate 28 H 07/13/20 08:47 Blood Pressure 167/79 H 07/13/20 08:47 Pulse Oximetry 92 07/13/20 08:47 GENERAL: Alert pleasant 84-year-old female and in no acute distress. HEENT: Head atraumatic,EOMI, pupils reactive, face symmetric, moist mucous membranes CARDIOVASCULAR: Regular rate and rhythm without murmurs, rubs or gallops. RESPIRATORY: Breath sounds equal bilaterally, no wheezes rales or rhonchi. ABDOMEN: Soft, nontender. Normoactive bowel sounds all 4 quadrants. No guarding or rebound. EXTREMITIES: Normal range of motion, no clubbing or edema. Neurovascularly intact NEUROLOGICAL: Alert and oriented x4.Normal gait and speech. Cranial nerves II through XII grossly intact. SKIN: Warm, dry, no laceration, no petechiae, no rashes or lesions. Course Orders Ordered: ED Orders 07/13/20 08:55 XR chest 1V Stat Complete Blood Count AUTO DIFF Stat Comprehensive Metabolic Panel Stat Lipase Stat NT-proBNP (BNP-Adult 18+) Stat Partial Thromboplastin Time Stat Procalcitonin Stat Prothrombin Time INR Stat Troponin & CK Cardiac Panel Stat EKG-12 Lead Stat 07/13/20 10:15 COVID19 - ADMIT ([employer] swab/PCR) Stat 07/13/20 11:30 Urinalysis and Microscopic Stat Discontinued Medications Furosemide (Furosemide 40 Mg/4 Ml Vial) 20 mg IV NOW ONE Stop: 07/13/20 10:37 Last Admin: 07/13/20 11:29 Dose: 20 mg Documented by: [place] Ondansetron HCl (Ondansetron 4 Mg/2 Ml Inj) 4 mg IV NOW ONE Stop: 07/13/20 09:06 Last Admin: 07/13/20 09:28 Dose: 4 mg Documented by: [place] Vital Signs Vital signs: Vital Signs - 8 hr 07/13/20 08:47 07/13/20 09:22 07/13/20 09:30 Temperature 98.8 F Pulse Rate 65 63 62 Respiratory Rate 28 H 24 22 Blood Pressure 167/79 H 157/71 H Pulse Oximetry 92 91 92 07/13/20 09:45 07/13/20 10:00 07/13/20 10:15 Temperature Pulse Rate 63 62 63 Respiratory Rate 28 H 23 21 Blood Pressure 163/71 H Pulse Oximetry 91 87 L 92 07/13/20 10:30 07/13/20 10:45 07/13/20 11:00 Temperature Pulse Rate 62 62 62 Respiratory Rate 21 25 H 20 Blood Pressure 158/73 H 159/72 H Pulse Oximetry 90 L 96 98 07/13/20 11:15 Temperature Pulse Rate 65 Respiratory Rate 31 H Blood Pressure Pulse Oximetry 96 MDM - Weakness Lab Data Attestation: I reviewed the patient's lab results. Result diagrams: 07/13/20 08:55 07/13/20 08:55 Labs: Lab Results 07/13/20 07/13/20 07/13/20 Range/Units 08:55 08:55 08:55 WBC 13.5 H (4.5-11.0) X10^3/uL RBC 4.02 (4.0-5.2) X10^6/uL Hgb 11.0 L (12.0-16.0) g/dL Hct 33.9 L (36-46) % MCV 84.5 (80-100) fL MCH 27.4 (26-34) PG MCHC 32.4 (30-36) % RDW 15.8 H (11.6-14.8) % Plt Count 255 (150-400) X10^3/uL Neut % (Auto) 83.1 H (50-75) % Lymph % (Auto) 4.8 L (25-40) % [place] % (Auto) 9.3 (3-14) % Eos % (Auto) 1.8 L (2-4) % Baso % (Auto) 1.0 (0-2) % Neut # (Auto) 25293 H (1467-2840) /uL Lymph # (Auto) 600 L (9520-2389) /uL [place] # (Auto) 1300 H (0-900) /uL Eos # (Auto) 200 (0-450) /uL Baso # (Auto) 100 (0-100) /uL PT 20.2 H (10.1-12.7) SECONDS INR 1.8 H (0.9-1.3) APTT 31 (26.4-36.2) SECONDS Sodium (137-145) mmol/L Potassium (3.4-5.1) mmol/L Chloride (98-107) mmol/L Carbon Dioxide (22-32) mmol/L BUN (7-17) mg/dL Creatinine (0.52-1.04) mg/dL Estimated GFR (>60) mL/min BUN/Creatinine Ratio (6-22) Glucose (80-110) mg/dL Calcium (8.4-10.2) mg/dL Total Bilirubin (0.2-1.3) mg/dL AST (14-36) IU/L ALT (<35) IU/L Alkaline Phosphatase (38-126) U/L Total Creatine Kinase (30-135) U/L CK-MB (CK-2) CK-MB (CK-2) Rel Index Troponin I (0.01-0.034) ng/mL NT-Pro-B Natriuret Pep 6450 H (<450) pg/mL Total Protein (6.3-8.2) g/dL Albumin (3.5-5.0) g/dL Globulin (1.7-4.1) g/dL Albumin/Globulin Ratio (1.0-2.8) Lipase (23-300) U/L Procalcitonin 0.08 (<0.5) ng/mL SARS-CoV-2 (PCR) (Negative) 07/13/20 07/13/20 Range/Units 08:55 10:15 WBC (4.5-11.0) X10^3/uL RBC (4.0-5.2) X10^6/uL Hgb (12.0-16.0) g/dL Hct (36-46) % MCV (80-100) fL MCH (26-34) PG MCHC (30-36) % RDW (11.6-14.8) % Plt Count (150-400) X10^3/uL Neut % (Auto) (50-75) % Lymph % (Auto) (25-40) % [place] % (Auto) (3-14) % Eos % (Auto) (2-4) % Baso % (Auto) (0-2) % Neut # (Auto) (1567-3937) /uL Lymph # (Auto) (7729-8939) /uL [place] # (Auto) (0-900) /uL Eos # (Auto) (0-450) /uL Baso # (Auto) (0-100) /uL PT (10.1-12.7) SECONDS INR (0.9-1.3) APTT (26.4-36.2) SECONDS Sodium 137 (137-145) mmol/L Potassium 3.3 L (3.4-5.1) mmol/L Chloride 100 (98-107) mmol/L Carbon Dioxide 29 (22-32) mmol/L BUN 19 H (7-17) mg/dL Creatinine 1.41 H (0.52-1.04) mg/dL Estimated GFR 35.4 L (>60) mL/min BUN/Creatinine Ratio 13.5 (6-22) Glucose 172 H (80-110) mg/dL Calcium 9.4 (8.4-10.2) mg/dL Total Bilirubin 0.6 (0.2-1.3) mg/dL AST 25 (14-36) IU/L ALT 20 (<35) IU/L Alkaline Phosphatase 74 (38-126) U/L Total Creatine Kinase < 20 L (30-135) U/L CK-MB (CK-2) TNP CK-MB (CK-2) Rel Index TNP Troponin I 0.054 H (0.01-0.034) ng/mL NT-Pro-B Natriuret Pep (<450) pg/mL Total Protein 7.1 (6.3-8.2) g/dL Albumin 3.8 (3.5-5.0) g/dL Globulin 3.3 (1.7-4.1) g/dL Albumin/Globulin Ratio 1.2 (1.0-2.8) Lipase 182 (23-300) U/L Procalcitonin (<0.5) ng/mL SARS-CoV-2 (PCR) Negative (Negative) Imaging Data Chest x-ray: Radiologist Impression: PROCEDURE: XR CHEST 1V INDICATIONS: short of breath TECHNIQUE: One view of the chest was acquired. COMPARISON: [facility], CR, XR CHEST 1V, 06/29/2020, 16:21. FINDINGS: Surgical changes and devices: None. Lungs and pleura: Chronic emphysematous changes are seen. Subtle opacity is seen in right infrahilar region concerning for developing right lower lobe infiltrate. Subtle opacity in left retrocardiac region is seen, small infiltrate cannot be excluded. No pleural effusions or pneumothorax. Mediastinum: Tortuous thoracic aorta with aortic arch calcification is seen. Heart size is mildly enlarged. Bones and chest wall: No suspicious bony lesions. Overlying soft tissues appear unremarkable. IMPRESSION: COPD. Ill-defined opacities seen in bilateral infrahilar region slightly more prominent on the right side concerning for developing lower lobe infiltrates. No pleural effusion or pneumothorax. Dictated by: Ebenezer Munoz M.D. on 07/13/2020 at 9:22 ECG Data Attestation: I personally reviewed and interpreted this ECG as follows: Prior ECG tracings: available for review Interpretation: sinus rhythm 67 p.r. interval 160 QRS 128 QTC 585 artifact noted previous EKG did show atrial fibrillation MDM Narrative Medical decision making narrative: Patient is found to have decreased oxygen level while in the ED. BNP is elevated consistent with CHF exacerbation. Patient is requiring oxygen with symptoms of CHF at this time will place in observation 11:24 Dr. Mahan accepts patient Discharge Plan Departure Patient Disposition: Admitted as Observation Clinical Impression: Acute exacerbation of CHF (congestive heart failure), Congestive heart failure Admit Date/Time: 07/13/20 11:25 Admit Provider: Benigno Mahan
[2020-07-13] MEDS: ONDANSETRON 4 MG/2 ML INJ IV (09:28)
[2020-07-13 09:51] LABS: Add Manual Diff / Slide Review NO; Basophils Absolute Auto 100 /uL (0-100); Eosinophils Absolute Auto 200 /uL (0-450); Eosinophils Percent Auto 1.8 % (2-4); Hematocrit 33.9 % (36-46); Lymphocytes Absolute Auto 600 /uL (1100-4500); Lymphocytes Percent Auto 4.8 % (25-40); Mean Corpuscular HGB Conc 32.4 % (30-36); Mean Corpuscular Hemoglobin 27.4 PG (26-34); Mean Corpuscular Volume 84.5 fL (80-100); Monocytes Absolute Auto 1300 /uL (0-900); Monocytes Percent Auto 9.3 % (3-14); Neutrophils Absolute Auto 11200 /uL (1500-7000); Neutrophils Percent Auto 83.1 % (50-75); Platelet Count 255 X10^3/uL (150-400); Red Blood Cell Count 4.02 X10^6/uL (4.0-5.2); Red Cell Distribution Width 15.8 % (11.6-14.8); White Blood Cell Count 13.5 X10^3/uL (4.5-11.0)
[2020-07-13 09:58] LABS: INR 1.8 (0.9-1.3); Prothrombin Time 20.2 SECONDS (10.1-12.7)
[2020-07-13 10:00] LABS: PTT Partial Thromboplastin Tim 31 SECONDS (26.4-36.2)
[2020-07-13 10:02] LABS: Alanine Aminotransferase 20 IU/L (<35); Albumin 3.8 g/dL (3.5-5.0); Albumin Globulin Ratio 1.2 (1.0-2.8); Alkaline Phosphatase 74 U/L (38-126); Aspartate Aminotransferase 25 IU/L (14-36); BUN Creatinine Ratio 13.5 (6-22); Bilirubin Total 0.6 mg/dL (0.2-1.3); Blood Urea Nitrogen 19 mg/dL (7-17); Calcium 9.4 mg/dL (8.4-10.2); Carbon Dioxide 29 mmol/L (22-32); Chloride 100 mmol/L (98-107); Creatine Kinase < 20 U/L (30-135); Estimated Glomerular Filt Rate 35.4 mL/min (>60); Globulin 3.3 g/dL (1.7-4.1); Glucose 172 mg/dL (80-110); HEMOLYSIS < 15 (0-50); Lipase 182 U/L (23-300); Potassium 3.3 mmol/L (3.4-5.1); Sodium 137 mmol/L (137-145); Total Protein 7.1 g/dL (6.3-8.2)
[2020-07-13 10:11] LABS: NT-proBNP (BNP-Adult 18+) 6450 pg/mL (<450)
[2020-07-13 10:14] LABS: Troponin I 0.054 ng/mL (0.01-0.034)
[2020-07-13 10:19] LABS: Procalcitonin 0.08 ng/mL (<0.5)
[2020-07-13] MEDS: FUROSEMIDE 40 MG/4 ML VIAL 20 MG IV (11:29)
--- NOTE | 2020-07-13 11:35 | PC.NURSE ---
Ok to place catheter per Dr. Yañez. Patient is receiving diuretics for
--- NOTE | 2020-07-13 11:36 | PC.NURSE ---
Catheter placed, ok per Dr. Yañez for measurement of urinary output in diuretic use. Patient is desatting while lying in bed, on 2LNC. Is short of breath with any movement, and is not able to use bedpan or commode.
[2020-07-13 11:40] LABS: Bacteria Urine None Seen; WBC Urine None Seen (0-5/HPF)
[2020-07-13 11:42] LABS: Appearance Urine UA CLEAR; Bilirubin Urine UA NEGATIVE (NEGATIVE); Color Urine UA YELLOW; Glucose Urine UA NEGATIVE (Negative); Ketones Urine UA NEGATIVE (NEGATIVE); Leukocyte Esterase Urine UA NEGATIVE (NEGATIVE); Nitrite Urine UA NEGATIVE (Negative); Occult Blood Urine UA 1+ (Negative); Protein Urine UA 2+ (Negative); Urobilinogen Urine UA 0.2 E.U./dL (0.2); pH Urine UA 6.5 (4.5-8.0)
--- NOTE | 2020-07-13 11:42 | PC.NURSE ---
1040 Patient is consistently dipping to 87% on Room air for the last [address] Yañez aware. Patient is tachypneic and states there is a rattling sound in her chest. Placed on 2 NC O2.
[2020-07-13 11:46] LABS: COVID19 - ADMIT (NP swab/PCR) Negative (Negative)
[2020-07-13 11:48] LABS: Culture Indicated Urine Cult Not Indicated; RBC Urine 1-5/HPF (0-5/HPF); Squamous Epithelial Cell Urine 1-5 /HPF (0-5/HPF)
--- NOTE | 2020-07-13 11:56 | CM.DPNOTE ---
Brad with [facility] called and please call when patient discharged. [phone]. Kami Thornton CM Asst.
--- NOTE | 2020-07-13 13:37 | P.HP_ITS ---
History of Present Illness History of Present Illness Date Patient Seen: 07/13/20 Time Patient Seen: 13:38 Date of Onset of Symptoms: 07/11/20 Chief complaint: fatigue x 2 months Narrative: Patient is an 84-year-old white female well known to me with history of atrial fibrillation and congestive heart failure. Recent admission 1 month ago for AFib uncontrolled with UTI. Patient had actually been doing okay at home. Having no major issues until this Monday. She was started an amiodarone and felt like she does loss tolerating energy and just did not feel well. She started getting nauseated. And had some vomiting. But nothing significant but was not eating was not taking her meds and just had not been feeling well. She felt as if her heart rate was still continuing to be significant elevated. But was not taking least her evening Lasix if not the rest of it. No other changes. Patient had no fevers no chills no urgency frequency of urine. No hematuria. No change in her bowel movements. No blood in her stool. And had no other complaint or problem. She denies any chest pain. Any shortness of breath. She just felt terrible. Feeling slightly better now. Past medical history: Diabetes mellitus type 2 Hypertension Hyperlipidemia Atrial fibrillation Hypothyroidism Polymyalgia rheumatica Migraine Depression IBS Past surgical history: Partial hysterectomy Cholecystectomy Family history: Father: DC, coronary artery disease, hypertension Mother: Alcoholism, heart disease Siblings: Heart disease, depression, hyperlipidemia Social history: Retired Patient History Medical History CHF (congestive heart failure) HTN (hypertension) Hypoglycemia Palpitations Paroxysmal atrial fibrillation Stable angina Surgical History No pertinent past surgical history Family & Social History Social History: household members children Prior Living Arrangements House Safety & Behavioral: Feels Safe in Current Yes Environment Been Physically Hurt or No Threatened By a Person Suicidal Ideation Description None Suicide Plan Description No Plan Tobacco & Substance use: Smoking Status Never smoker alcohol intake current alcohol intake frequency a few times a month Substance Use Type does not use Meds Home Medications and Allergies Home Medications Medication Instructions Recorded Confirmed Type ezetimibe [Zetia] 10 mg PO DAILY #0 10/16/12 07/13/20 History insulin lispro [Humalog U-100 See Protocol SUBCUT DIRECTED 05/31/16 07/13/20 History Insulin] PRN #0 allopurinol 300 mg PO DAILY 08/08/18 07/13/20 History levothyroxine 125 mcg PO DAILY 08/08/18 07/13/20 History prednisone 5 mg PO QAM 08/08/18 07/13/20 History rivaroxaban 15 mg PO DAILY 08/08/18 07/13/20 History colchicine [Colcrys] See Rx Instructions .ROUTE 01/28/19 07/13/20 History .COMPLEX PRN MDD 3 tab FreeStyle Thomas 14 Day Sensor 05/28/19 06/03/20 History Lantus Solostar U-100 Insulin 22 unit SUBCUT QPM 05/28/19 07/13/20 History acetaminophen 325 mg PO PRN PRN 05/28/19 06/03/20 History prednisone 3 mg PO QAM 05/28/19 07/13/20 History Lantus Solostar U-100 Insulin 24 unit SUBCUT QAM 05/07/20 07/13/20 History amlodipine [Norvasc] 10 mg PO DAILY 06/03/20 07/13/20 History rosuvastatin 5 mg PO BEDTIME 06/03/20 07/13/20 History potassium chloride [Klor-Con M10] 10 meq PO BIDWM #30 tab 06/09/20 07/13/20 Rx amiodarone 400 mg PO BID 07/13/20 07/13/20 History furosemide 20 mg PO BID 07/13/20 07/13/20 History metoprolol succinate 75 mg PO BID 07/13/20 07/13/20 History Allergies Allergy/AdvReac Type Severity Reaction Status Date / Time kiwi Allergy Severe ANAPHYLAXIS Verified 07/13/20 09:13 Sulfa (Sulfonamide Allergy Severe unknown Verified 07/13/20 09:13 Antibiotics) meperidine AdvReac Severe I GO NUTS Verified 07/13/20 09:13 morphine AdvReac Severe DIZZY Verified 07/13/20 09:13 Review of Systems Review of Systems ROS: Yes All systems reviewed with the patient and are negative except as otherwise documented Exam Vital Signs (past 8 hours): - 07/13/20 08:47 07/13/20 09:22 07/13/20 09:30 Temperature 98.8 F Pulse Rate 65 63 62 Respiratory Rate 28 H 24 22 Blood Pressure 167/79 H 157/71 H Pulse Oximetry 92 91 92 07/13/20 09:45 07/13/20 10:00 07/13/20 10:15 Temperature Pulse Rate 63 62 63 Respiratory Rate 28 H 23 21 Blood Pressure 163/71 H Pulse Oximetry 91 87 L 92 07/13/20 10:30 07/13/20 10:45 07/13/20 11:00 Temperature Pulse Rate 62 62 62 Respiratory Rate 21 25 H 20 Blood Pressure 158/73 H 159/72 H Pulse Oximetry 90 L 96 98 07/13/20 11:15 07/13/20 11:30 07/13/20 11:31 Temperature Pulse Rate 65 62 62 Respiratory Rate 31 H 44 H 34 H Blood Pressure 132/65 Pulse Oximetry 96 97 96 07/13/20 11:45 Temperature Pulse Rate 61 Respiratory Rate 26 H Blood Pressure Pulse Oximetry 94 Oxygen Delivery Method Room Air Oxygen Flow Rate 2 Narrative Exam Narrative: Alert elderly female in no acute distress lying in bed HEENT exam unremarkable. Neck supple without adenopathy. Lungs with basilar crackles very mild but otherwise clear. Heart regular rate and rhythm without murmurs clicks rubs or gallops. Abdomen is soft positive bowel sounds nontender extremities without significant edema. Neurologic exam is nonfocal. Objective Labs Result Diagrams: 07/13/20 08:55 07/13/20 08:55 Labs: Laboratory Results - last 24 hr 07/13/20 07/13/20 07/13/20 08:55 08:55 08:55 WBC 13.5 H RBC 4.02 Hgb 11.0 L Hct 33.9 L MCV 84.5 MCH 27.4 MCHC 32.4 RDW 15.8 H Plt Count 255 Neut % (Auto) 83.1 H Lymph % (Auto) 4.8 L [place] % (Auto) 9.3 Eos % (Auto) 1.8 L Baso % (Auto) 1.0 Neut # (Auto) 88696 H Lymph # (Auto) 600 L [place] # (Auto) 1300 H Eos # (Auto) 200 Baso # (Auto) 100 PT 20.2 H INR 1.8 H APTT 31 Sodium Potassium Chloride Carbon Dioxide BUN Creatinine Estimated GFR BUN/Creatinine Ratio Glucose Calcium Total Bilirubin AST ALT Alkaline Phosphatase Total Creatine Kinase CK-MB (CK-2) CK-MB (CK-2) Rel Index Troponin I NT-Pro-B Natriuret Pep 6450 H Total Protein Albumin Globulin Albumin/Globulin Ratio Lipase Procalcitonin 0.08 Urine Color Urine Appearance Urine pH Ur Specific [place] Urine Protein Urine Glucose (UA) Urine Ketones Urine Occult Blood Urine Nitrate Urine Bilirubin Urine Urobilinogen Ur Leukocyte Esterase Urine RBC Urine WBC Ur Squamous Epith Cells Urine Bacteria Ur Culture Indicated? SARS-CoV-2 (PCR) 07/13/20 07/13/20 07/13/20 08:55 10:15 11:30 WBC RBC Hgb Hct MCV MCH MCHC RDW Plt Count Neut % (Auto) Lymph % (Auto) [place] % (Auto) Eos % (Auto) Baso % (Auto) Neut # (Auto) Lymph # (Auto) [place] # (Auto) Eos # (Auto) Baso # (Auto) PT INR APTT Sodium 137 Potassium 3.3 L Chloride 100 Carbon Dioxide 29 BUN 19 H Creatinine 1.41 H Estimated GFR 35.4 L BUN/Creatinine Ratio 13.5 Glucose 172 H Calcium 9.4 Total Bilirubin 0.6 AST 25 ALT 20 Alkaline Phosphatase 74 Total Creatine Kinase < 20 L CK-MB (CK-2) TNP CK-MB (CK-2) Rel Index TNP Troponin I 0.054 H NT-Pro-B Natriuret Pep Total Protein 7.1 Albumin 3.8 Globulin 3.3 Albumin/Globulin Ratio 1.2 Lipase 182 Procalcitonin Urine Color Yellow Urine Appearance Clear Urine pH 6.5 Ur Specific [place] 1.020 Urine Protein 2+ H Urine Glucose (UA) Negative Urine Ketones Negative Urine Occult Blood 1+ H Urine Nitrate Negative Urine Bilirubin Negative Urine Urobilinogen 0.2 Ur Leukocyte Esterase Negative Urine RBC 1-5/hpf Urine WBC None seen Ur Squamous Epith Cells 1-5 /hpf Urine Bacteria None seen Ur Culture Indicated? Cult not indicated SARS-CoV-2 (PCR) Negative Assessment & Plan Assessment & Plan narrative: Nausea and vomiting. Seems to be improved. Probably secondary to her medication which is new. No other changes. I do not think were significantly dehydrated and will re-evaluate. Congestive heart failure. Left heart. Probably secondary to not taking her medications secondary to her nausea from her new medicine what seems to be feeling a little better. No other change. Do not think she is having heart attack. Atrial fibrillation has not been in control until recently and is hard to know how much that usually does impact her. But she is in normal sinus now hopefully she will stay. Atrial fibrillation. Will hold her metoprolol for now. Blood pressure seems to be good. Her rate is certainly controlled now that she is in sinus rhythm hop efully she will stay that way. Will place on monitor and re-evaluate in a.m.. Hypertension. Control is much improved. Will continue on usual meds except for metoprolol which will hold for now. May restart tomorrow depending on how she does. Will see what tonight does. Type 2 diabetes. Will usual control. History of UTI. Will check urine. Code status full. GI prophylaxis should be stable at this time. DVT prophylaxis on her usual anticoagulation. Disposition. Hopefully things will clear up quickly will see how things go. She looks better already. Will all depend on I think rate control and her nausea. Will see how things go. 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 45 minutes spent documenting patient care and coordination of care Quality VTE Deep Vein Thrombosis/Pulmonary Embolism Present on Admission: No
--- NOTE | 2020-07-13 15:25 | PC.NURSE ---
The patient has her own device that continuously checks her blood sugar.
--- NOTE | 2020-07-13 15:47 | PC.NURSE ---
Safe hand off from ED. Patient was brought up at 1310 on a portable stretcher and was able to ambulate to the bed and to the chair w/ stand by assistance. Patient VSS, lung sounds coarse throughout. Patient states that she has a cough that is non productive. Patient denies pain or nausea. She has a glucose monitoring system on her left arm. Patient was sleepy and resting after admission.
--- NOTE | 2020-07-13 16:46 | PC.NURSE ---
recieved call from Rene at [facility] asking is we have this patient. They received a message on their voicemail and were concerned that the patient was unattended at home. They were informed the paitient was admited at 1125 today. they stated they will call back for records.
[2020-07-13] MEDS: INSULIN ASPART 100 UNIT/ML INSULN PEN SUBCUT (17:16)
[2020-07-13] MEDS: POTASSIUM CHLORIDE 10 MEQ TAB PO (17:21)
[2020-07-13] MEDS: FUROSEMIDE 20 MG/2 ML VIAL IV (17:23)
[2020-07-13] MEDS: INSULIN GLARGINE 100 UNIT/ML 10ML VIAL 12 UNIT SUBCUT (21:30)
[2020-07-13] MEDS: AMIODARONE 200 MG TABLET 400 MG PO (21:50)
[2020-07-14] VITALS (7 sets, daily range): BP systolic 135–141; BP diastolic 62–90; PULSE 63–68; RESP 16–18; TEMP 36.8–37.3; O2SAT 92–96
--- NOTE | 2020-07-14 02:37 | PC.NURSE ---
Addendum entered by Magalys Razo R.N. 07/14/20 03:41: Pt with skin tear to left dorsal wrist with bandaid and paper tape, which has shadow drainage. Needs to be changed, but pt refused to let this entry writer remove any of bandages. Original Note: summary- AxO x4, 95% 2L nc, LS course, SOB with exertion. Alejandro in place and draining clear yellow urine. LAC SL lasix given @ 1700 then DC's. Tele; NSR 62/63 with prolonged QT x2. BG; 140 2 units and 131 no coverage, but 12 units lantus admin. 1PA FWW. VSS with faint murmer. Call light in reach.
[2020-07-14 04:52] LABS: BUN Creatinine Ratio 15.6 (6-22); Blood Urea Nitrogen 21 mg/dL (7-17); Calcium 8.8 mg/dL (8.4-10.2); Carbon Dioxide 32 mmol/L (22-32); Chloride 102 mmol/L (98-107); Estimated Glomerular Filt Rate 37.3 mL/min (>60); Glucose 80 mg/dL (80-110); HEMOLYSIS < 15 (0-50); Potassium 3.3 mmol/L (3.4-5.1); Sodium 136 mmol/L (137-145)
[2020-07-14 04:59] LABS: NT-proBNP (BNP-Adult 18+) 16400 pg/mL (<450)
[2020-07-14] MEDS: POTASSIUM CHLORIDE 10 MEQ TAB PO (08:46)
[2020-07-14] MEDS: predniSONE 1 MG TABLET 3 MG PO (08:47)
[2020-07-14] MEDS: predniSONE 5 MG TABLET PO (08:47)
[2020-07-14] MEDS: RIVAROXABAN 10 MG TABLET 15 MG PO (08:48)
[2020-07-14] MEDS: AMIODARONE 200 MG TABLET 400 MG PO (08:48)
[2020-07-14] MEDS: EZETIMIBE 10 MG TABLET PO (08:48)
[2020-07-14] MEDS: AMLODIPINE 5 MG TABLET 10 MG PO (08:48)
[2020-07-14] MEDS: LEVOTHYROXINE 125 MCG TABLET PO (08:48)
[2020-07-14] MEDS: allopurinoL 100 MG TABLET 300 MG PO (08:48)
[2020-07-14] MEDS: INSULIN GLARGINE 100 UNIT/ML 10ML VIAL 24 UNIT SUBCUT (08:49)
--- NOTE | 2020-07-14 11:14 | CM.DANOTE ---
Discharge Planning/Care Management DCP: assessment: case received, EMR reviewed, dc order to home noted. Received a call from Brad/[facility] who stated that they were current with [facility] and since pt here under OBS status no need for resume HH orders. Met then with pt and followed up with her daughter Jackie by phone. Assured both that [facility] would continue to see her. Jackei reported their information on medication management had been extremely helpful. She will stand by to pick pt up once her d/c paperwork has been completed. RN caring for pt says this will be sometime this afternoon. CM Discharge Assessment Start: 07/14/20 11:13 Freq: Status: Active Protocol: Document 07/14/20 11:13 ITV (Rec: 07/14/20 11:14 ITV [id number]) Discharge Planning Assessment Advance Directives? Yes: POLST Advance Directives on File Yes History Provided By Patient,Family Member,Medical Record Prior Living Arrangements House Is patient alert and oriented? Yes Discharge Plan Home Review Status In Process
[2020-07-14] MEDS: INSULIN ASPART 100 UNIT/ML INSULN PEN SUBCUT (12:37)
--- NOTE | 2020-07-14 13:34 | P.DS_ITS ---
History of Present Illness History of Present Illness Date Patient Seen: 07/14/20 Time Patient Seen: 13:34 Date of Onset of Symptoms: 07/11/20 Chief complaint: fatigue x 2 months Narrative: Patient is an 84-year-old white female well known to me with history of atrial fibrillation and congestive heart failure. Recent admission 1 month ago for AFib uncontrolled with UTI. Patient had actually been doing okay at home. Having no major issues until this Monday. She was started an amiodarone and felt like she does loss tolerating energy and just did not feel well. She started getting nauseated. And had some vomiting. But nothing significant but was not eating was not taking her meds and just had not been feeling well. She felt as if her heart rate was still continuing to be significant elevated. But was not taking least her evening Lasix if not the rest of it. No other changes. Patient had no fevers no chills no urgency frequency of urine. No hematuria. No change in her bowel movements. No blood in her stool. And had no other complaint or problem. She denies any chest pain. Any shortness of breath. She just felt terrible. Feeling slightly better now. Past medical history: Diabetes mellitus type 2 Hypertension Hyperlipidemia Atrial fibrillation Hypothyroidism Polymyalgia rheumatica Migraine Depression IBS Past surgical history: Partial hysterectomy Cholecystectomy Family history: Father: [place], coronary artery disease, hypertension Mother: Alcoholism, heart disease Siblings: Heart disease, depression, hyperlipidemia Social history: Retired Discharge Providers Provider Date of admission: 07/13/20 11:25 Discharge Date: 07/14/20 Primary care physician: Benigno Mahan MD Consults: 07/13/20 12:40 Consult to Dietitian, Adult Routine Comment: Reason For Exam: no appetite 07/13/20 14:59 Consult to Discharge Planning Routine Comment: Discharge provider: Benigno Mahan MD Summary Hospital Course Discharge Diagnosis: Nausea and vomiting Congestive heart failure Atrial fibrillation Hypertension Hypokalemia Type 2 diabetes History of UTI Hospital Course: Nausea and vomiting. Patient was admitted after having 48 hours of nausea and vomiting. It seems to be associated with her starting her amiodarone. She was not taking her medicines in her usual manner and was not feeling well. She was admitted she was given IV hydration which made her feel significantly better she was having no nausea was tolerating food and was discharged to home. [place] to be side effect of medication which is resolving no evidence of infection. She did have a slightly abnormal chest x-ray but no evidence of significant pulmonary distress. It was felt to not be a significant infection Congestive heart failure. Left heart. Almost surely secondary to not taking her Lasix on a consistent basis due to her nausea and vomiting. Does not appear to be a issue with rate control although she felt like her rate was significantly elevated. We will be following but at this point she diuresed well and was comfortable she was off her O2 and was feeling back to normal as far as her breathing goes Atrial fibrillation. Rate control actually was good while in hospital had converted to sinus rhythm. Should done well throughout the course of her admission I do suspect that her rhythm was not in control prior to admission and may have a did added to her issue with her congestive heart failure due to the fact that her blood pressure was controlled she was tired and questionable heart rate control her metoprolol was held on to and she will discuss with motion picture projectionist apprentice what to do. She has follow-up with them. I will see her in 1 week Type 2 diabetes. Had 1 low sugar. Was not taking food real well. She has otherwise been doing well at home but will need to be followed. She understands having make adjustments. History. Will follow. Status at Discharge Cognitive/behavioral status at discharge: oriented Functional status at discharge: independent ambulation Overall status at discharge: patient is back to baseline Exam Vital Signs (past 8 hours): - 07/14/20 07:00 07/14/20 07:24 07/14/20 07:35 Temperature Pulse Rate 63 Respiratory Rate 16 Blood Pressure Pulse Oximetry 93 95 92 07/14/20 08:00 07/14/20 11:43 Temperature 99.2 F 98.2 F Pulse Rate 68 64 Respiratory Rate 18 17 Blood Pressure 141/62 H 135/62 Pulse Oximetry 96 93 Oxygen Delivery Method Room Air Oxygen Flow Rate 0 Narrative Exam Narrative: Alert female no acute distress Lungs are clear. Heart regular rate and rhythm. Abdomen is soft positive bowel sounds nontender. Extremities without cyanosis clubbing edema. Objective Labs Result Diagrams: 07/13/20 08:55 07/14/20 04:10 Labs: Laboratory Results - last 24 hr 07/14/20 07/14/20 04:10 04:10 Sodium 136 L Potassium 3.3 L Chloride 102 Carbon Dioxide 32 BUN 21 H Creatinine 1.35 H Estimated GFR 37.3 L BUN/Creatinine Ratio 15.6 Glucose 80 Calcium 8.8 NT-Pro-B Natriuret Pep 99504 H [facility] Medical History CHF (congestive heart failure) HTN (hypertension) Hypoglycemia Palpitations Paroxysmal atrial fibrillation Stable angina Surgical History No pertinent past surgical history Social History household members: children Smoking Status: Never smoker alcohol intake: current Discharge Assessment & Plan Assessment and Plan Assessment: Stable. Patient will be followed up as outpatient. Discharge Plan Discharge Plan Patient Disposition: Home Discharge orders & Medications Prescriptions: New potassium chloride [Klor-Con M20] 20 mEq Tablet,Er Particles/Crystals 20 meq PO DAILYCC Qty: 60 RF: 1 Continued ezetimibe [Zetia] 10 MG tablet 10 mg PO DAILY Qty: 0 RF: 0 insulin lispro [Humalog U-100 Insulin] 100 UNIT/1 ML solution See Protocol sliding scale dose SUBCUT DIRECTED PRN (Reason: sliding scale) Qty: 0 RF: 0 prednisone 5 mg tablet 5 mg PO QAM RF: 0 allopurinol 100 mg tablet 300 mg PO DAILY RF: 0 levothyroxine 125 mcg tablet 125 mcg PO DAILY RF: 0 rivaroxaban 15 mg tablet 15 mg PO DAILY RF: 0 colchicine [Colcrys] 0.6 mg Tablet See Rx Instructions .ROUTE .COMPLEX MDD 3 tab PRN (Reason: Gout) RF: 0 amlodipine [Norvasc] 5 mg tablet 10 mg PO DAILY RF: 0 rosuvastatin 10 mg tablet 5 mg PO BEDTIME RF: 0 prednisone 1 mg tablet 3 mg PO QAM RF: 0 (DME) FreeStyle Thomas 14 Day Sensor Kit MISCELLANEOUS RF: 0 acetaminophen 325 mg Tablet 325 mg PO PRN PRN (Reason: pain) RF: 0 Lantus Solostar U-100 Insulin 100 unit/mL (3 mL) insulin pen 22 unit SUBCUT QPM RF: 0 Lantus Solostar U-100 Insulin 100 unit/mL (3 mL) Insulin Pen 24 unit SUBCUT QAM RF: 0 amiodarone 400 mg Tablet 400 mg PO BID RF: 0 furosemide 20 mg tablet 20 mg PO BID RF: 0 Discontinued potassium chloride [Klor-Con M10] 10 mEq Tablet,Er Particles/Crystals 10 meq PO BIDWM Qty: 30 RF: 2 metoprolol succinate 25 mg Capsule,Sprinkle,Er 24hr 75 mg PO BID RF: 0 Follow up/Referrals: Benigno Mahan MD [Primary Care Provider] - 07/20/20 2:45 pm (appt:07/20 @ 2:[address] Mahan ) Discharge Health Status Multidrug resistant organism: No MDRO Diet/Activity/Treatments Diet: Carb-consistent/Diabetic Activity: as tolerated Skin/Wound/Dressing Care Report to your healthcare provider any signs of infection, such as:: chills, fever, night sweats and increased pain Visit Report/Discharge Packet Instructions: DI for Prescription Opioid Use Discharge Data Primary Care Provider: Benigno Mahan Attending Provider: Benigno Mahan Quality VTE Deep Vein Thrombosis/Pulmonary Embolism Present on Admission: No
--- NOTE | 2020-07-14 14:00 | CM.DPNOTE ---
Faxed clinicals to [facility] for continuation of care per Anahy and tawny from Brad as [place]. Fax confirmation received. Called Brad at [place] and he did receive the clinicals. Kami Thornton CM Asst.
--- NOTE | 2020-07-14 15:25 | PC.NURSE ---
Patient educated about diet, activity, ss of stroke, ss of CHF, new medications and discontinued medications. Patient verbalized understanding of all discharge teaching. Medications electronically sent to [facility]. Patient left facility with all belongings via wheelchair with daughter.
== END 2020-07-14 15:00 | disposition home or self-care (01) ==
LOC: ED 11:24 → AC 11:28
PROVIDERS: Admitting Provider Family Medicine; Emergency Provider Emergency Medicine; PCP Family Medicine; Referring Provider Emergency Medicine; Visit Provider Family Medicine
DX: R11.2 Nausea with vomiting, unspecified (principal); R06.02 Shortness of breath; R53.1 Weakness; R00.2 Palpitations; E87.6 Hypokalemia; I11.0 Hypertensive heart disease with heart failure; I50.1 Left ventricular failure, unspecified; I48.0 Paroxysmal atrial fibrillation; J44.9 Chronic obstructive pulmonary disease, unspecified; E03.9 Hypothyroidism, unspecified; F32.9 Major depressive disorder, single episode, unspecified; M35.3 Polymyalgia rheumatica; E11.9 Type 2 diabetes mellitus without complications; Z79.4 Long term (current) use of insulin; Z87.440 Personal history of urinary (tract) infections; Z20.822 Contact with and (suspected) exposure to COVID-19
CPT/HCPCS: 36415; 51701; 71045; 80048; 80053; 81001; 82550; 82962; 83690; 83880; 84145; 84484; 85025; 85610; 85730; 87635; 93005; 96372; 96374; 96375; 96376; 99285; G0378; J1940; J2405

== ENCOUNTER 2020-07-17 09:22 | Emergency (ER) | payer MEDICARE, OTHER, SELFPAY ==
[2020-07-13 12:17] VITALS: BMI 26.4
[2020-07-17] VITALS (8 sets, daily range): BP systolic 136–170; BP diastolic 77–94; PULSE 101–127; RESP 15–32; TEMP 36.5; O2SAT 96–98; BMI 26.2
--- NOTE | 2020-07-17 09:39 | DI.RAD.S_ITS ---
PROCEDURE: XR CHEST 1V INDICATIONS: chest pain TECHNIQUE: One view of the chest was acquired. COMPARISON: [facility], CR, XR CHEST 1V, 07/13/2020, 9:06. FINDINGS: Surgical changes and devices: None. Lungs and pleura: Lungs are clear. No pleural effusions or pneumothorax. Mediastinum: Mediastinal contours appear normal. Heart size is normal. Bones and chest wall: No suspicious bony lesions. Overlying soft tissues appear unremarkable. IMPRESSION: No acute process. Dictated by: Barb Pichardo M.D. on 07/17/2020 at 10:02 Approved by: Barb Pichardo M.D. on 07/17/2020 at 10:04
--- NOTE | 2020-07-17 09:42 | ED_ITS ---
HPI - General Adult General Chief complaint: Arrhythmia/Palpitations Stated complaint: pulse rate over 120, afib increasing Time Seen by Provider: 07/17/20 09:31 Source: patient Mode of arrival: Ambulatory Limitations: no limitations History of Present Illness HPI narrative: 84-year-old female with a history of atrial fibrillation. She is on amiodarone and was until a couple days ago on metoprolol. She has been seen here 2 times in the past couple days for what appeared to be CHF issues. She also talked with her band reamer machine operator on the phone and she states that she was told by the band reamer machine operator office that if her heart rate drops below 80 she should stop the metoprolol. She did this a couple days ago. She states she has felt fine for about 1 day and then felt that she was back in atrial fibrillation. She states that today her heart rate went above 120 and she was told to come the emergency department this happens. She is denying chest pain or shortness of breath. Related Data Home Medications Medication Instructions Recorded Confirmed ezetimibe [Zetia] 10 mg PO DAILY #0 10/16/12 07/13/20 insulin lispro [Humalog U-100 See Protocol SUBCUT DIRECTED 05/31/16 07/13/20 Insulin] PRN #0 allopurinol 300 mg PO DAILY 08/08/18 07/13/20 levothyroxine 125 mcg PO DAILY 08/08/18 07/13/20 prednisone 5 mg PO QAM 08/08/18 07/13/20 rivaroxaban 15 mg PO DAILY 08/08/18 07/13/20 colchicine [Colcrys] See Rx Instructions .ROUTE 01/28/19 07/13/20 .COMPLEX PRN MDD 3 tab FreeStyle Thomas 14 Day Sensor 05/28/19 06/03/20 Lantus Solostar U-100 Insulin 22 unit SUBCUT QPM 05/28/19 07/13/20 acetaminophen 325 mg PO PRN PRN 05/28/19 07/14/20 prednisone 3 mg PO QAM 05/28/19 07/13/20 Lantus Solostar U-100 Insulin 24 unit SUBCUT QAM 05/07/20 07/13/20 amlodipine [Norvasc] 10 mg PO DAILY 06/03/20 07/13/20 rosuvastatin 5 mg PO BEDTIME 06/03/20 07/13/20 amiodarone 400 mg PO BID 07/13/20 07/13/20 furosemide 20 mg PO BID 07/13/20 07/13/20 Previous Rx's Medication Instructions Recorded potassium chloride [Klor-Con M20] 20 meq PO DAILYCC #60 tab 07/14/20 Allergies Allergy/AdvReac Type Severity Reaction Status Date / Time kiwi Allergy Severe ANAPHYLAXIS Verified 07/17/20 09:30 Sulfa (Sulfonamide Allergy Severe unknown Verified 07/17/20 09:30 Antibiotics) meperidine AdvReac Severe I GO NUTS Verified 07/17/20 09:30 morphine AdvReac Severe DIZZY Verified 07/17/20 09:30 Review of Systems Constitutional Constitutional: Denies fever(s) and Denies headache(s) ENT Ears, Nose, Mouth, and Throat: Denies headache(s) Cardiovascular Cardiovascular: Denies chest pain, Reports rapid heart rate, Reports irregular heart rhythm and Denies dyspnea Respiratory Respiratory: Denies cough and Denies dyspnea Gastrointestinal Gastrointestinal: Denies abdominal pain, Denies nausea and Denies vomiting Musculoskeletal Musculoskeletal: Denies myalgias Integumentary/Breasts Skin/Breast: Denies rash Neurologic Neurologic: Denies behavioral changes and Denies headache(s) Psychiatric Psychiatric: Denies behavioral changes Hematologic/Lymphatic On Anticoagulants: Yes Allergic/Immunologic Allergic/Immunologic: Denies urticaria Patient History Medical History CHF (congestive heart failure) HTN (hypertension) Hypoglycemia Palpitations Paroxysmal atrial fibrillation Stable angina Surgical History No pertinent past surgical history Social History household members: children Smoking Status: Never smoker alcohol intake: current Smoking Status: Never smoker alcohol intake frequency: a few times a month Alcohol type: hard liquor Substance Use Type: does not use Exam Initial Vital Signs Initial Vital Signs: Vital Signs Temperature 97.7 F 07/17/20 09:25 Pulse Rate 123 H 07/17/20 09:25 Respiratory Rate 15 07/17/20 09:25 Blood Pressure 170/87 H 07/17/20 09:25 Pulse Oximetry 97 07/17/20 09:25 Const General: cooperative, comfortable, well developed and well groomed Limitations: mental status not altered HENMT Head: normal to inspection Resp Effort & Inspection: normal respiratory effort Auscultation: clear to auscultation bilaterally Cardio Rate: tachycardic Rhythm: regular rhythm Pulses: radial pulses present GI Inspection: non-distended Palpation: soft Skin Lesions: no lesions Rashes: no rashes Neuro General: patient alert and patient awake Cognition: normal cognition Speech: speech normal Extrem General: capillary refill normal Psych Appearance: grossly normal and well kempt Course Orders Ordered: ED Orders 07/17/20 09:30 Complete Blood Count AUTO DIFF Stat Comprehensive Metabolic Panel Stat Lipase Stat Partial Thromboplastin Time Stat Prothrombin Time INR Stat Troponin & CK Cardiac Panel Stat 07/17/20 09:39 XR chest 1V Stat EKG-12 Lead Stat Discontinued Medications Metoprolol Succinate (Metoprolol Er 50 Mg Tablet) 50 mg PO NOW ONE Stop: 07/17/20 09:43 Last Admin: 07/17/20 10:13 Dose: 50 mg Documented by: VONDA Vital Signs Vital signs: Vital Signs - 8 hr 07/17/20 09:25 07/17/20 09:28 07/17/20 09:29 Temperature 97.7 F Pulse Rate 123 H 127 H Respiratory Rate 15 Blood Pressure 170/87 H 170/87 H Pulse Oximetry 97 98 07/17/20 09:30 07/17/20 09:38 07/17/20 10:00 Temperature Pulse Rate 125 H 117 H 114 H Respiratory Rate 27 H 19 Blood Pressure 170/94 H 158/77 H Pulse Oximetry 98 98 97 07/17/20 10:30 Temperature Pulse Rate 113 H Respiratory Rate 21 Blood Pressure 170/77 H Pulse Oximetry 96 Medical Decision Making Lab Data Lab results reviewed: Yes I reviewed the patient's lab results. Result diagrams: 07/17/20 09:30 07/17/20 09:30 Labs: Lab Results 07/17/20 07/17/20 07/17/20 Range/Units 09:30 09:30 09:30 WBC 9.1 (4.5-11.0) X10^3/uL RBC 3.81 L (4.0-5.2) X10^6/uL Hgb 10.3 L (12.0-16.0) g/dL Hct 32.2 L (36-46) % MCV 84.3 (80-100) fL MCH 27.1 (26-34) PG MCHC 32.2 (30-36) % RDW 16.2 H (11.6-14.8) % Plt Count 285 (150-400) X10^3/uL Neut % (Auto) 70.9 (50-75) % Lymph % (Auto) 16.0 L (25-40) % Bland % (Auto) 10.1 (3-14) % Eos % (Auto) 2.1 (2-4) % Baso % (Auto) 0.9 (0-2) % Neut # (Auto) 6500 (0228-9339) /uL Lymph # (Auto) 1500 (7634-5184) /uL Bland # (Auto) 900 (0-900) /uL Eos # (Auto) 200 (0-450) /uL Baso # (Auto) 100 (0-100) /uL PT 50.5 H D (10.1-12.7) SECONDS INR 4.5 H (0.9-1.3) APTT 45 H D (26.4-36.2) SECONDS Sodium 136 L (137-145) mmol/L Potassium 3.8 (3.4-5.1) mmol/L Chloride 100 (98-107) mmol/L Carbon Dioxide 27 (22-32) mmol/L BUN 23 H (7-17) mg/dL Creatinine 1.58 H (0.52-1.04) mg/dL Estimated GFR 31.1 L (>60) mL/min BUN/Creatinine Ratio 14.6 (6-22) Glucose 332 H D (80-110) mg/dL Calcium 9.1 (8.4-10.2) mg/dL Total Bilirubin 0.6 (0.2-1.3) mg/dL AST 24 (14-36) IU/L ALT 20 (<35) IU/L Alkaline Phosphatase 82 (38-126) U/L Total Creatine Kinase 28 L (30-135) U/L CK-MB (CK-2) TNP CK-MB (CK-2) Rel Index TNP Troponin I 0.029 (0.01-0.034) ng/mL Total Protein 6.9 (6.3-8.2) g/dL Albumin 3.7 (3.5-5.0) g/dL Globulin 3.2 (1.7-4.1) g/dL Albumin/Globulin Ratio 1.2 (1.0-2.8) Lipase 228 (23-300) U/L Imaging Data Chest x-ray: Radiologist's Impression: [place] [id number] [place] [id number] ReportSigned Patient: Jackie Orta FMR#: [id number]: 5Acct:[id number]/Sex: 84 / FDate of Service: 07/17/20Loc: EDAccession Number: [id number] Procedure: XR chest 1V Ordering Provider: Bebo Rock D.O. PROCEDURE: XR CHEST 1V INDICATIONS: chest pain TECHNIQUE: One view of the chest was acquired. COMPARISON: [facility], , XR CHEST 1V, 07/13/2020, 9:06. FINDINGS: Surgical changes and devices: None. Lungs and pleura: Lungs are clear. No pleural effusions or pneumothorax. Mediastinum: Mediastinal contours appear normal. Heart size is normal. Bones and chest wall: No suspicious bony lesions. Overlying soft tissues appear unremarkable. IMPRESSION: No acute process. Dictated by: Barb Pichardo M.D. on 07/17/2020 at 10:02 Approved by: Barb Pichardo M.D. on 07/17/2020 at 10:04 ECG Data Attestation: I personally reviewed and interpreted this ECG as follows: Prior ECG tracings: not available for review Interpretation: Atrial fibrillation Ventricular rate 127 Normal axis Normal QRS Nonspecific ST T wave changes Artifact noted MDM Narrative Medical decision making narrative: Patient is not having any symptoms except her heart rate being fast. She denies chest pain. No changes in her shortness of breath. She does have a history of atrial fibrillation. She is on anticoagulation. She recently stopped her metoprolol. She was taking 200 mg twice a day. She was given 50 mg of metoprolol here in the emergency department and her heart rate went from consistently above 120 to consistently between 95 and 105. I suspect that coming off of her metoprolol caused her heart rate to be elevated. Had a long discussion with her and her daughter regarding this. The plan will be is to have her restart at 50 mg a day and continue to take her heart rate at home. She was given strict return precautions and will contact her band reamer machine operator for follow-up. She expressed understanding and agreement. Discharge Plan Departure Patient Disposition: Home Clinical Impression: Atrial fibrillation with rapid ventricular response Instructions: DI for Atrial Fibrillation Activity Restrictions/Additional Instructions: Continue all of your medications as directed. Start taking 50 mg of metoprolol on a daily basis like we discussed and take your heart rate during the day. If you develop any symptoms of chest pain or lightheadedness or shortness of breath regardless of which your heart rate is please return to the emergency department. Also contact your band reamer machine operator for follow-up. Prescriptions: No Action ezetimibe [Zetia] 10 MG tablet 10 mg PO DAILY Qty: 0 RF: 0 insulin lispro [Humalog U-100 Insulin] 100 UNIT/1 ML solution See Protocol sliding scale dose SUBCUT DIRECTED PRN (Reason: sliding scale) Qty: 0 RF: 0 prednisone 5 mg tablet 5 mg PO QAM RF: 0 allopurinol 100 mg tablet 300 mg PO DAILY RF: 0 levothyroxine 125 mcg tablet 125 mcg PO DAILY RF: 0 rivaroxaban 15 mg tablet 15 mg PO DAILY RF: 0 colchicine [Colcrys] 0.6 mg Tablet See Rx Instructions .ROUTE .COMPLEX MDD 3 tab PRN (Reason: Gout) RF: 0 amlodipine [Norvasc] 5 mg tablet 10 mg PO DAILY RF: 0 rosuvastatin 10 mg tablet 5 mg PO BEDTIME RF: 0 prednisone 1 mg tablet 3 mg PO QAM RF: 0 (DME) FreeStyle Thomas 14 Day Sensor Kit MISCELLANEOUS RF: 0 acetaminophen 325 mg Tablet 325 mg PO PRN PRN (Reason: pain) RF: 0 Lantus Solostar U-100 Insulin 100 unit/mL (3 mL) insulin pen 22 unit SUBCUT QPM RF: 0 Lantus Solostar U-100 Insulin 100 unit/mL (3 mL) Insulin Pen 24 unit SUBCUT QAM RF: 0 amiodarone 400 mg Tablet 400 mg PO BID RF: 0 furosemide 20 mg tablet 20 mg PO BID RF: 0 potassium chloride [Klor-Con M20] 20 mEq Tablet,Er Particles/Crystals 20 meq PO DAILYCC Qty: 60 RF: 1 Referrals: Benigno Mahan MD [Primary Care Provider] -
[2020-07-17 09:47] LABS: Add Manual Diff / Slide Review NO; Basophils Absolute Auto 100 /uL (0-100); Basophils Percent Auto 0.9 % (0-2); Eosinophils Absolute Auto 200 /uL (0-450); Eosinophils Percent Auto 2.1 % (2-4); Hematocrit 32.2 % (36-46); Hemoglobin 10.3 g/dL (12.0-16.0); Lymphocytes Absolute Auto 1500 /uL (1100-4500); Mean Corpuscular HGB Conc 32.2 % (30-36); Mean Corpuscular Hemoglobin 27.1 PG (26-34); Mean Corpuscular Volume 84.3 fL (80-100); Monocytes Absolute Auto 900 /uL (0-900); Monocytes Percent Auto 10.1 % (3-14); Neutrophils Absolute Auto 6500 /uL (1500-7000); Neutrophils Percent Auto 70.9 % (50-75); Platelet Count 285 X10^3/uL (150-400); Red Blood Cell Count 3.81 X10^6/uL (4.0-5.2); Red Cell Distribution Width 16.2 % (11.6-14.8); White Blood Cell Count 9.1 X10^3/uL (4.5-11.0)
[2020-07-17 09:52] LABS: INR 4.5 (0.9-1.3); Prothrombin Time 50.5 SECONDS (10.1-12.7)
[2020-07-17 09:54] LABS: PTT Partial Thromboplastin Tim 45 SECONDS (26.4-36.2)
[2020-07-17 09:56] LABS: Alanine Aminotransferase 20 IU/L (<35); Albumin 3.7 g/dL (3.5-5.0); Albumin Globulin Ratio 1.2 (1.0-2.8); Alkaline Phosphatase 82 U/L (38-126); Aspartate Aminotransferase 24 IU/L (14-36); BUN Creatinine Ratio 14.6 (6-22); Bilirubin Total 0.6 mg/dL (0.2-1.3); Blood Urea Nitrogen 23 mg/dL (7-17); Calcium 9.1 mg/dL (8.4-10.2); Carbon Dioxide 27 mmol/L (22-32); Chloride 100 mmol/L (98-107); Creatine Kinase 28 U/L (30-135); Estimated Glomerular Filt Rate 31.1 mL/min (>60); Globulin 3.2 g/dL (1.7-4.1); Glucose 332 mg/dL (80-110); HEMOLYSIS < 15 (0-50); Lipase 228 U/L (23-300); Potassium 3.8 mmol/L (3.4-5.1); Sodium 136 mmol/L (137-145); Total Protein 6.9 g/dL (6.3-8.2)
[2020-07-17 10:08] LABS: Troponin I 0.029 ng/mL (0.01-0.034)
[2020-07-17] MEDS: METOPROLOL ER 50 MG TABLET PO (10:13)
--- OUTSIDE RECORDS SUMMARY | 2020-07-20 08:26 | XMS_ITS | Referral Summary ---
:1935 Author Organization [facility] Address [address] [place] [address] Care Team Providers Name Role Phone Kalli Primary Care Provider Reason for Referral Hospital - Outpatient (Routine) Status Reason Specialty Diagnoses / Procedures Referred By aMgnus pavon Referred To Contact Closed Diagnoses Atrial fibrillation, unspecified type (CMS/HCC) Other forms of dyspnea Benigno De Souza, [facility] Procedures Complete PFT with DLCO [id number] [place] [address] [address] [id number] [place], [place] Phone: [phone] Phone: Electronically signed by Benigno De Souza MD at Reason for Visit Reason Comments Atrial Fibrillation Encounter Details Date Type Department Care Team Description 07/08/2020 Office Visit [facility] Ratna BestLaura, Atrial fibrillation, unspecified type (CMS/HCC) (Primary Dx); Clinics Cardiology [facility] Essential hypertension; [address] Dyslipidemia; [facility], [address] Hypothyroidism, unspecified type; [place], [place] Nonrheumatic aortic valve st enosis; [place] [address] Other forms of dyspnea [id number] Allergies Active Allergy Reactions Severity Noted Date Comments Kiwi High 06/12/2018 Meperidine High 08/25/2013 Morphine High 08/25/2013 Other reaction( s): Dizziness Sulfa (Sulfonamide High 06/12/2018 Antibiotics) documented as of this encounter (statuses as of 07/16/2020) Medications Medication Sig Dispensed Refills Start Date End Date Status insulin lispro Inject 10 Units 0 Active (HumaLOG KwikPen under the skin 4 Insulin) 100 unit/mL (four) times a day insulin pen as needed 10-15 units as needed insulin glargine Inject 14 Units 0 Active (LANTUS) 100 unit/mL under the skin (3 mL) insulin pen nightly Inject 25 injection pen units in the morning and 14 units (variable) in the evening levothyroxine Take 125 mcg by 0 Active (SYNTHROID, mouth daily LEVOTHROID) 125 mcg tablet predniSONE Take 5 mg by mouth 0 Active (DELTASONE) 5 mg daily tablet colchicine 0.6 mg Take 0.6 mg by 0 Active tablet mouth as needed Two times a day, PRN pen needle, diabetic 0 Active 31 gauge x 06/30 needle FREESTYLE THOMAS 14 USE CONTINUOUSLY 1 each 0 05/02/2019 Active DAY READER DIRECTED miscIndications: Type 2 diabetes mellitus with diabetic polyneuropathy, with long-term current use of insulin (CMS/HCC) FreeStyle Thomas 14 APPLY 1 SENSOR TO 6 kit 3 03/26/2020 Active Day Sensor SKIN EVERY 14 DAYS. kitIndications: Type 2 diabetes mellitus with diabetic polyneuropathy, with long-term current use of insulin (CMS/HCC) allopurinoL Take 300 mg by 0 06/01/2020 Ac tive (ZYLOPRIM) 300 mg mouth daily tablet furosemide (LASIX) 20 Take 2 tablets (40 90 tablet 3 1 Active mg tablet mg total) by mouth daily Additional Information Patient taking differently: 20 mg oral 2 times daily, Reported on 07/03/2020 ezetimibe (ZETIA) 10 mg Take 1 tablet (10 mg 90 tablet 3 06/12 Active tablet total) by mouth daily rivaroxaban (Xarelto) 15 mg Take 1 tablet (15 mg 90 tablet 3 0 06/12/2020 Active tablet total) by mouth daily amLODIPine (NORVASC) 5 mg Take 1 tablet (5 mg 90 tablet 3 05/19 Active tablet total) by mouth daily Additional Information Patient taking differently: 10 mg oral Daily, Informant: Self, Reported on 07/03/2020 rosuvastatin Take 1 tablet 90 tablet 3 06/12/2020 06/12/2021 A ctive (CRESTOR) 5 mg (5 mg total) tablet by mouth daily for 365 doses potassium chloride Take 10 mEq by 0 06/09/2020 Active (KLOR-CON) 10 mEq mouth 2 (two) CR tablet times a day predniSONE Take 1 mg by 0 Active (DELTASONE) 1 mg mouth 3 tablet (three) times a day metoprolol tartrate Take 2 tablets 270 tablet 3 07/03/2020 Active (LOPRESSOR) 100 mg (200 mg total) tablet by mouth 2 (two) times a day amiodarone Take 2 tablets 90 tablet 3 07/08/2020 08/05/2021 Ac tive (PACERONE) 200 mg (400 mg total) tablet by mouth daily for 14 days, THEN 2 tablets (400 mg total) daily for 14 days, THEN 1 tablet (200 mg total) daily. meclizine Take 12.5 mg 0 07/08/2020 Discon tinued (No (ANTIVERT) 12.5 mg by mouth 3 Longer Needed, tablet (three) times Treatm ent a day as Complete) needed for dizziness calcium Take 1 tablet 0 07/08/2020 Disco ntinued (No carbonate-vitamin by mouth daily Longer Needed, D3 500 mg(1,250mg) with lunch Treatment -200 unit per 2000 units Compl ete) tablet blood sugar 0 07/08/2020 Discont inued (No diagnostic Longer Ne eded, (ONETOUCH ULTRA Kimberley tment BLUE TEST STRIP Comp lete) MIS) metoclopramide Take 5 mg by 0 07/08/2020 D iscontinued (No (REGLAN) 5 mg mouth once Longe r Needed, tablet daily as Treatment needed Complete) documented as of this encounter (statuses as of 07/16/2020) Active Problems Problem Noted Date correction current use of amiodarone 07/08/2020 Aortic stenosis 06/12/2020 Dyslipidemia 02/20/2017 Diarrhea 10/29/2013 Diabetes mellitus 08/29/2013 Hyperlipidemia 08/29/2013 Paroxysmal atrial fibrillation 08/29/2013 Peripheral arterial occlusive disease 08/29/2013 Hypertension 08/29/2013 Palpitations 04/03/2006 Hypothyroid documented as of this encounter (statuses as of 07/16/2020) Social History Tobacco Use Types Packs/Day Years Used Date Never Smoker Smokeless Tobacco: Never Used Sex Assigned at Date Recorded Not on file Job Start Date Occupation Industry Not on file Not on file Not on file documented as of this encounter Last Filed Vital Signs Vital Sign Reading Time Taken Comments Blood Pressure 130/62 07/08/2020 1:41 PM PDT Pulse 116 07/08/2020 1:41 PM PDT Temperature - - Respiratory Rate - - Oxygen Saturation - - Inhaled Oxygen Concentration - - Weight 79 kg (174 lb 3.2 oz) 07/08/2020 1:41 PM PDT Height 170.2 cm (5' 7.01) 07/08/2020 1:41 PM PDT Body Mass Index 27.28 07/08/2020 1:41 PM PDT documented in this encounter Patient Instructions Patient InstructionsDuRatna soto ARNP - 07/08/2020 1:40 PM PDT1. Begin amiodarone 400 mg twice a day for 2 weeks then, 200 mg twice a day for 2 weeks then 200 mgdaily. 2.Hold metoprolol tartrate for heart rate less than 80. 3. Continue to monitor blood pressure and heart rate at home and record. documented in this encounter Progress Notes Ratna Best ARNP - 07/08/2020 1:40 PM PDT Subjective Patient ID: Jackie Orta is a 84 y.o. female that had concerns including Atrial Fibrillation. HPI: Dr. Benigno Mahan has asked that I urgently consult on this 84-year-old female with a history of paroxysmal atrial fibrillation, hypertension, hyperlipidemia, diabetes, and hypothyroidism. She has seen Dr. Crum in the past with a normal exercise perfusion study in 2011 and a normal echocardiogram in 2013 showing mild left atrial enlargement and mild to moderate mitral regurgitation. While a stress echocardiogram in 2014 reported proximal inferolateral infarct with saray-infarct ischemia, Dr. Crum felt that this study was likely normal. An ROMIE study suggested mild PAD in the left leg. At her 2014 visit, she described brief self-limited palpitations that she attributed to atrial fibrillation but was generally doing well and her medications were left unchanged. She last saw Dr. Crum in 2015 and subsequently failed follow-up. She had a nuclear perfusion study on 05/31/2019 that showed excellent exercise capacity with an LAUREL of -32% with a normal heart rate and blood pressure response and was in sinus rhythm. Her ejection fraction was 78% and there were no perfusion defects. There isno significant change from her previous nuclear stress perfusion study from 03/21/2018. ?? She was admitted to [facility] on 03/23/2020 with persistent rapid atrial fibrillation and a borderline abnormal troponin. An echocardiogram showed an EF of 55 to 60% without focal abnormality andwas unchanged although with probable diastolic dysfunction with elevated filling pressures. The right ventricle appeared normal with a PAP estimated at 32 mmHg with a CVP of 3 mmHg with moderate left atrial enlargement and mild to moderate mitral regurgitation that was unchanged. There was mild aortic stenosis with a peak velocity of 2.6 m/s that was slightly progressive since previous. She was treated with diltiazem and discharged the following day on her same medications. She was scheduled for outpatient exercise stress testing on 05/06/2020 but upon presentation was in rapid atrial fibrillation at 130-140 BPM after holding her atenolol and this was canceled and was instructed to restart her atenolol although was admitted on 05/07/2020 with progressive palpitations and dyspnea and again had aborderline elevated troponin. She was again treated with diltiazem and diuresed with furosemide andconverted to sinus rhythm and discharged on 05/08/2020. Her nuclear perfusion study on 05/06/20 showed mildly impaired exercise capacity with an LAUREL of +5% and had a accelerated heart rate response but was in sinus rhythm but with frequent PACs and PVCs. Her ejection fraction was 74% with a mild fixedinferior defect that improved on prone imaging and thus was felt to reflect attenuation artifact andwas low risk without any evidence of ischemia. ?? She was readmitted on 06/03/2020 with 4 days of weakness, fatigue, nausea and vomiting and had stopped her medications. She was again in rapid atrial fibrillation at 130 BPM and had acute kidney injurywith a creatinine of 1.6 increasing to 1.8 with a BUN of 26, and a potassium of 3.7. She was found to have a urinary tract infection was treated with antibiotics and started on oral diltiazem in addition to atenolol. She was vigorously hydrated with improvement in her creatinine but then developed hypoxia and was diuresed with furosemide and ultimately discharged on 06/09/2020 with heart rates in the 110-120 range with a BUN of 32 and a creatinine 1.5 and a potassium of 3.2. At the time of discharge she was started on potassium chloride. ?? The most recent labs from 06/09/2020 showed a BUN of 32 (47 from 05/31/2019), a creatinine of 1.5 (1.7), potassium of 3.2 (4.2), and glucose of 87 (309) and normal LFT's. Total cholesterol was 157 on 06/25/2020 (230 from 06/02/2016), HDL of 44 (45), LDL of 76 (144) and triglycerides of 221 (207) and LDL-particle 1048. Last TSH was 0.15 from 05/07/2020. ?? She presents today in her usual state of heart. She continues to report palpitations with heart racing and fatigue. She reports an overall lack of energy which is more noticeable in the morning. She denies any chest discomfort, resting or exertional dyspnea, orthopnea, PND, peripheral edema or syncope. Her home blood pressure in the 120-130 range. She currently lives with her daughter in [place]. 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 She typically drinks 2 ounces of scotch nightly. She has stopped drinking her nightly scotch due to atrial fibrillation. She would like to resume her scotch consumption. ?? Her ECG today shows atrial fibrillation at 116 BPM. Past Medical History: Diagnosis Date ??? Hyperlipidemia ??? Hypothyroid Past Surgical History: Procedure Laterality Date ??? CHOLECYSTECTOMY 2011 ??? HYSTERECTOMY Family History Problem Relation Age of Onset ??? Heart disease Mother ??? Heart disease Father ??? Diabetes Maternal Grandmother Social History Socioeconomic History ??? Marital status: Single Spouse name: Not on file ??? Number of children: Not on file ??? Years of education: Not on file ??? Highest education level: Not on file Occupational History ??? Not on file Tobacco Use ??? Smoking status: Never Smoker ??? Smokeless tobacco: Never Used Substance and Sexual Activity ??? Alcohol use: Not on file ??? Drug use: Not on file ??? Sexual activity: Not on file Other Topics Concern ??? Not on file Social History Narrative ??? Not on file Social Determinants of Health Financial Resource Strain: ??? Difficulty of Paying Living Expenses: Food Insecurity: ??? Worried About Running Out of Food in the Last Year: ??? Ran Out of Food in the Last Year: Transportation Needs: ??? Lack of Transportation (Medical): ??? Lack of Transportation (Non-Medical): Physical Activity: ??? Days of Exercise per Week: ??? Minutes of Exercise per Session: Stress: ??? Feeling of Stress : Social Connections: ??? Frequency of Communication with Friends and Family: ??? Frequency of Social Gatherings with Friends and Family: ??? Attends Restoration Services: ??? Active Member of Clubs or Organizations: ??? Attends Club or Organization Meetings: ??? Marital Status: Allergies Allergen Reactions ??? Kiwi ??? Meperidine ??? Morphine Other reaction(s): Dizziness ??? Sulfa (Sulfonamide Antibiotics) Current Medication List Sig allopurinoL (ZYLOPRIM) 300 mg tablet Take 300 mg by mouth daily amiodarone (PACERONE) 200 mg tablet Take 2 tablets (400 mg total) by mouth daily for 14 days, THEN 2 tablets (400 mg total) daily for 14 days, THEN 1 tablet (200 mg total) daily. amLODIPine (NORVASC) 5 mg tablet Take 1 tablet (5 mg total) by mouth daily colchicine 0.6 mg tablet Take 0.6 mg by mouth as needed Two times a day, PRN ezetimibe (ZETIA) 10 mg tablet Take 1 tablet (10 mg total) by mouth daily FREESTYLE THOMAS 14 DAY READER misc USE CONTINUOUSLY DIRECTED FreeStyle Thomas 14 Day Sensor kit APPLY 1 SENSOR TO SKIN EVERY 14 DAYS. furosemide (LASIX) 20 mg tablet Take 2 tablets (40 mg total) by mouth daily insulin glargine (LANTUS) 100 unit/mL (3 mL) insulin pen injection pen Inject 14 Units under the skin nightly Inject 25 units in the morning and 14 units (variable) in the evening insulin lispro (HumaLOG KwikPen Insulin) 100 unit/mL insulin pen Inject 10 Units under the skin 4 (four) times a day as needed 10-15 units as needed levothyroxine (SYNTHROID, LEVOTHROID) 125 mcg tablet Take 125 mcg by mouth daily metoprolol tartrate (LOPRESSOR) 100 mg tablet Take 2 tablets (200 mg total) by mouth 2 (two) times a day pen needle, diabetic 31 gauge x 3/16 needle potassium chloride (KLOR-CON) 10 mEq CR tablet Take 10 mEq by mouth 2 (two) times a day predniSONE (DELTASONE) 1 mg tablet Take 1 mg by mouth 3 (three) times a day predniSONE (DELTASONE) 5 mg tablet Take 5 mg by mouth daily rivaroxaban (Xarelto) 15 mg tablet Take 1 tablet (15 mg total) by mouth daily rosuvastatin (CRESTOR) 5 mg tablet Take 1 tablet (5 mg total) by mouth daily for 365 doses Review of Systems Constitutional: Positive for fatigue. Negative for unexpected weight change. Eyes: Negative for visual disturbance. Respiratory: Negative for shortness of breath. Cardiovascular: Positive for palpitations. Negative for chest pain and leg swelling. Gastrointestinal: Negative for blood in stool. Endocrine: Negative for polydipsia. Genitourinary: Negative for hematuria. Musculoskeletal: Negative for myalgias. Skin: Negative for rash. Neurological: Negative for dizziness. Hematological: Does not bruise/bleed easily. Psychiatric/Behavioral: The patient is not nervous/anxious. Objective BP 130/62 (BP Location: Right arm, Patient Position: Sitting) Pulse (!) 116 Ht 1.702 m Wt 79 kg BMI 27.28 kg/m?? Physical Exam: General Appearance: Well-nourished, pleasant, cooperative, no apparent distress HEET: Normocephalic atraumatic, EOMI, no scleral icterus, no arcus, tongue midline, mucous membranesmoist, good dentition Neck: No obvious mass, supple Respiratory: Good aeration, clear to auscultation and percussion, no rales or wheeze Cardiovascular: Nondisplaced PMI, irregularly irregular, normal S1 and normal S2,II/ systolic murmurs RSB, no rubs/gallops, JVP 4-5 cm, no JVD Pulses: Carotid and femoral pulses 2+ bilaterally without bruit, dorsalis pedis and anterior tibial pulses 2+ bilaterally Abdomen: Soft, nondistended, nontender, no heptosplenomegally, no hepatojugular reflux, normal bowelsounds without bruits Extremities: No clubbing, cyanosis or edema Neuro: Alert, no facial droop, tongue midline, no gross motor deficits Psych: Appropriate affect, normal mentation and memory Skin: Warm and dry, no rashes on face, neck, and lower extremities Assessment/Plan Diagnoses and all orders for this visit: Atrial fibrillation, unspecified type (CMS/HCC) - ECG 12 Lead (Clinic - Same Day) - Complete PFT with DLCO; Future - TSH; Future - T4+Free T4; Future Essential hypertension Dyslipidemia Hypothyroidism, unspecified type Nonrheumatic aortic valve stenosis Other forms of dyspnea - Complete PFT with DLCO; Future Other orders - amiodarone (PACERONE) 200 mg tablet; Take 2 tablets (400 mg total) by mouth daily for 14 days,THEN 2 tablets (400 mg total) daily for 14 days, THEN 1 tablet (200 mg total) daily. Assessment/Plan Comments: 1. Persistent atrial fibrillation. [id number] 4. ECG today shows atrial fibrillation at a rapid ventricular rate of 116 BPM. Her heart rate is not well controlled on metoprolol tartrate 200 mg BID which she has been taking since 07/03/2020. She is anticoagulated on Xarelto 15 mg daily .She is inno acute distress. She has no evidence of volume overload. Her echocardiogram results have been reviewed in detail. I have reviewed her treatment options of amiodarone therapy vs cardioversion including the risk and benefits of each. She has elective amiodarone therapy. She has also agreed to elective cardioversion if amiodarone fails to control her atrial fibrillation and she remains symptomatic. I will load her with amiodarone 400 mg BID X 14 days then 400 mg BID X 14 days then 200 mg daily.I will adjust her metoprolol dose once amiodarone is on board in order to reduce her risk of bradycardia. Once she starts the amiodarone, she will hold her metoprolol for any heart rates less than 80 BPM. I will obtain baseline PFTs with DLCO and thyroid studies. The importance of yearly eye exams while on amiodarone therapy has been reinforced. She will have a EKG in 2 weeks and follow up with me in a month. She has been encouraged to have a sleep study based on her snoring hx. She has been enc ouraged to have scotch no more than 3 times a week. 2. Hypertension. Her blood pressure is well controlled in the office and at home. I will continue her amlodipine 5 mg daily. She has been encouraged to continue to monitor her blood pressure at homeand record. 3. Hyperlipidemia. Her LDL is fairly well controlled on rosuvastatin. I will continue her rosuvastatin 5 mg nightly and ezetimibe 10 mg daily. 4. Hypothyroidism. With her history of hypothyroidism and the addition of amiodarone, I will obtain baseline thyroid studies. 5. Mild aortic stenosis. Echocardiogram 03/24/2020 with mild aortic stenosis with a peak velocity of 2.58 m/sec. Repeat echocardiogram to reassess valve area later in the year. She is asymptomatic. F/U EKG in 2 weeks and office visit with me in 1 month. Electronically signed by PIERO Swenson 07/09/2020 10:56 AM documented in this encounter Plan of Treatment Upcoming Encounters Date Type Specialty Care Team Description 07/22/2020 Clinical Support Cardiology 08/19/2020 Office Visit Cardiology Ratna Best ARNP [address] [place] [address] Scheduled Orders Name Type Priority Associated Diagnoses Order S chedule Complete PFT with DLCO PFT Routine Atrial fibrillatio n, 1 Occurrences starting unspecified type 07/08/2020 until ([facility]) 07/08/2021 Other forms of dyspnea TSH Lab Routine Atrial fibrillation, Expecte d: 07/08/2020, unspecified type Expires: ([facility]) T4+Free T4 Lab Routine Atrial fibrillation, Expecte d: 07/08/2020, unspecified type Expires: ([facility]) documented as of this encounter Procedures Procedure Name Priority Date/Time Associated Diagnosis Comme nts ECG 12-LEAD Routine 07/09/2020 4:50 PM Atrial fibrillation, Results for this PDT unspecified type procedure a re in ([facility]) the results section. documented in this encounter Results ECG 12 Lead (Clinic - Same Day) (07/09/2020 4:50 PM PDT) Narrative Performed At This result has an attachment that is no t available. 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
== END 2020-07-17 11:21 | disposition home or self-care (01) ==
PROVIDERS: Emergency Provider Emergency Medicine; PCP Family Medicine
DX: I48.91 Unspecified atrial fibrillation (principal)
CPT/HCPCS: 36415; 71045; 80053; 82550; 83690; 84484; 85025; 85610; 85730; 93005; 99284

== ENCOUNTER → 2020-07-31 07:02 | Outpatient (CLI) | payer MEDICARE, OTHER, SELFPAY ==
[2020-07-13 12:17] VITALS: BMI 26.4
[2020-07-31 07:54] LABS: COVID19 -Nasal RAPID Negative (Negative)
== END ==
PROVIDERS: PCP Family Medicine; Referring Provider Internal Medicine; Visit Provider Internal Medicine
DX: Z20.822 Contact with and (suspected) exposure to COVID-19 (principal)
CPT/HCPCS: 87635; C9803

== ENCOUNTER → 2020-07-31 07:03 | Outpatient (CLI) | payer MEDICARE, OTHER, SELFPAY ==
[2020-07-13 12:17] VITALS: BMI 26.4
--- NOTE | 2020-08-05 09:42 | PM.PFT.1 ---
Pulmonary Function Test Referral & Results Date Patient Seen: 07/31/20 Requesting provider: Ratna Best Results: The spirometry demonstrates an FVC of 1.70 L which is 62% of predicted. The FEV1 was measured at 1.31 L which is 64% of predicted. The FEV1/FVC ratio was 77 which is 105% of predicted. Following the administration of bronchodilator there was a 35% improvement in FEV1 and a 185% improvement in FEF 25-75%. Lung volumes show an SVC of 2.42 L which is 85% of predicted. The diffusing capacity was measured at 14.91 which is 52% of predicted. No hemoglobin value was provided, so no correction for potential anemia could be made, if appropriate. The maximum voluntary ventilation was slightly reduced Interpretation: This study demonstrates moderate obstructive lung disease based on reduction FEV1 although FEV1/FVC ratio is preserved. However there is evidence of significant benefit following bronchodilator both in small airway flow as well as large airway based on improvement in FEV1 and FEF 25-75% as above There is a minimal reduction in lung volumes suggesting mild restrictive lung disease There is also moderate reduction in diffusing capacity suggesting element of disease at the capillary alveolar level Compared to PFTs performed in July 2015, current study shows significant increase in obstructive lung disease as prior spirometry was normal. Diffusing capacity is further reduced from prior values as well. Clinical correlation suggested
== END ==
PROVIDERS: PCP Family Medicine; Referring Provider Nurse Practitioner; Visit Provider Nurse Practitioner
DX: R06.09 Other forms of dyspnea (principal); J98.8 Other specified respiratory disorders; Z20.822 Contact with and (suspected) exposure to COVID-19
CPT/HCPCS: 87635; 94060; 94726; 94729; C9803

== ENCOUNTER 2020-10-09 09:24 | Emergency (ER) | payer MEDICARE, OTHER, SELFPAY ==
[2020-07-13 12:17] VITALS: BMI 26.4
[2020-10-09] VITALS (33 sets, daily range): BP systolic 169–225; BP diastolic 72–92; PULSE 74–257; RESP 14–24; TEMP 37; O2SAT 90–98; BMI 26.9
--- NOTE | 2020-10-09 09:50 | DI.RAD.S_ITS ---
PROCEDURE: XR CHEST 1V INDICATIONS: shortness of breath TECHNIQUE: One view of the chest was acquired. COMPARISON: [facility], CT, CT ANGIO CHEST PE PROTOCOL, 06/08/2020, 13:38. [facility], CR, XR CHEST 1V, 07/17/2020, 9:56. [facility], CR, XR CHEST 1V, 07/13/2020, 9:06. FINDINGS: Surgical changes and devices: None. Lungs and pleura: Minimal streaky opacity at the right lung base. Mild bibasilar hazy opacity. No consolidation. No large pleural effusions. No pneumothorax. Mediastinum: Mediastinal contours appear unchanged. Aortic arch atherosclerotic calcifications. Heart size is normal. Bones and chest wall: No suspicious bony lesions. Overlying soft tissues appear unremarkable. IMPRESSION: Suspect bibasilar atelectasis. No consolidation. Dictated by: Dominic Muller M.D. on 10/09/2020 at 10:18 Approved by: Dominic Muller M.D. on 10/09/2020 at 10:21
[2020-10-09 10:44] LABS: Add Manual Diff / Slide Review NO; Basophils Absolute Auto 0 /uL (0-100); Basophils Percent Auto 0.3 % (0-2); Eosinophils Absolute Auto 0 /uL (0-450); Eosinophils Percent Auto 0.1 % (2-4); Hemoglobin 9.7 g/dL (12.0-16.0); Lymphocytes Absolute Auto 500 /uL (1100-4500); Lymphocytes Percent Auto 4.7 % (25-40); Mean Corpuscular HGB Conc 33.3 % (30-36); Mean Corpuscular Hemoglobin 27.3 PG (26-34); Monocytes Absolute Auto 1000 /uL (0-900); Monocytes Percent Auto 8.7 % (3-14); Neutrophils Absolute Auto 10000 /uL (1500-7000); Neutrophils Percent Auto 86.2 % (50-75); Platelet Count 241 X10^3/uL (150-400); Red Blood Cell Count 3.54 X10^6/uL (4.0-5.2); Red Cell Distribution Width 17.2 % (11.6-14.8); White Blood Cell Count 11.6 X10^3/uL (4.5-11.0)
[2020-10-09 10:54] LABS: Lactate (Lactic Acid) 1.4 mmol/L (0.7-2.1)
[2020-10-09 10:55] LABS: Alanine Aminotransferase 22 IU/L (<35); Albumin 3.6 g/dL (3.5-5.0); Albumin Globulin Ratio 1.2 (1.0-2.8); Alkaline Phosphatase 76 U/L (38-126); Aspartate Aminotransferase 32 IU/L (14-36); BUN Creatinine Ratio 24.3 (6-22); Bilirubin Total 0.4 mg/dL (0.2-1.3); Blood Urea Nitrogen 42 mg/dL (7-17); Calcium 9.2 mg/dL (8.4-10.2); Carbon Dioxide 26 mmol/L (22-32); Chloride 104 mmol/L (98-107); Estimated Glomerular Filt Rate 27.9 mL/min (>60); Glucose 157 mg/dL (80-110); HEMOLYSIS < 15 (0-50); Potassium 3.8 mmol/L (3.4-5.1); Sodium 136 mmol/L (137-145); Total Protein 6.6 g/dL (6.3-8.2)
--- NOTE | 2020-10-09 11:03 | ED.SOB ---
HPI - SOB/Dyspnea General Chief Complaint: Shortness of Breath/Dyspnea Stated Complaint: water retention, water running out of leg, SOB Time Seen by Provider: 10/09/20 10:58 Source: patient Mode of arrival: Ambulatory Limitations: no limitations History of Present Illness HPI Narrative: This is an 85-year-old female comes complaint of increasing swelling in her bilateral lower extremities. Patient also notes she has had some weeping from 1 of her legs. She has had some increasing shortness of breath. She states her medications were changed recently she is unsure exactly how but in related to CHF likely. She denies fevers or chills. No cough cold or congestion. Patient denies any chest pain or pressure. She denies any nausea or vomiting. She has noted some frequency and dysuria. She denies any other new GI symptoms. She does have some chronic constipation. She also states that her sugars have been elevated because she was placed on prednisone recently for gout. Related Data Home Medications Medication Instructions Recorded Confirmed ezetimibe [Zetia] 10 mg PO DAILY #0 10/16/12 07/23/20 insulin lispro [Humalog U-100 See Protocol SUBCUT DIRECTED 05/31/16 07/23/20 Insulin] PRN #0 allopurinol 300 mg PO DAILY 08/08/18 07/23/20 levothyroxine 125 mcg PO DAILY 08/08/18 07/23/20 prednisone 5 mg PO QAM 08/08/18 07/23/20 rivaroxaban 15 mg PO DAILY 08/08/18 07/23/20 colchicine [Colcrys] See Rx Instructions .ROUTE 01/28/19 07/13/20 .COMPLEX PRN MDD 3 tab FreeStyle Thomas 14 Day Sensor 05/28/19 07/23/20 Lantus Solostar U-100 Insulin 22 unit SUBCUT QPM 05/28/19 07/23/20 acetaminophen 325 mg PO PRN PRN 05/28/19 07/14/20 prednisone 3 mg PO QAM 05/28/19 07/23/20 Lantus Solostar U-100 Insulin 24 unit SUBCUT QAM 05/07/20 07/23/20 amlodipine [Norvasc] 10 mg PO DAILY 06/03/20 07/23/20 rosuvastatin 5 mg PO BEDTIME 06/03/20 07/23/20 amiodarone 400 mg PO BID 07/13/20 07/23/20 furosemide 20 mg PO BID 07/13/20 07/23/20 Previous Rx's Medication Instructions Recorded potassium chloride [Klor-Con M20] 20 meq PO DAILYCC #60 tab 07/14/20 Allergies Allergy/AdvReac Type Severity Reaction Status Date / Time kiwi Allergy Severe ANAPHYLAXIS Verified 10/09/20 09:51 Sulfa (Sulfonamide Allergy Severe unknown Verified 10/09/20 09:51 Antibiotics) meperidine AdvReac Severe I GO NUTS Verified 10/09/20 09:51 morphine AdvReac Severe DIZZY Verified 10/09/20 09:51 Review of Systems Review of Systems ROS Unobtainable: All systems reviewed & are unremarkable except as noted in HPI and below Patient History Medical History CHF (congestive heart failure) HTN (hypertension) Hypoglycemia Palpitations Paroxysmal atrial fibrillation Stable angina Surgical History No pertinent past surgical history Family History Family/Other Diabetes mellitus Father Loud snoring Hypertension Heart disease Mother Hypertension Heart disease Family/Other Heart disease Hypertension Social History household members: children Smoking Status: Never smoker alcohol intake: current Smoking Status: Never smoker alcohol intake frequency: a few times a week Alcohol type: hard liquor Substance Use Type: does not use Exam Narrative Exam Narrative: GENERAL: Alert and oriented x three, well-nourished female in mild distress. HEENT: Head normocephalic, atraumatic, EOMI, pupils reactive, face symmetric, moist mucous membranes NECK: Supple, full range of motion CARDIOVASCULAR: Regular rate and rhythm without murmurs, rubs or gallops. Patient has bilateral lower extremity swelling. RESPIRATORY: Breath sounds equal bilaterally, no wheezes rales or rhonchi. No tachypnea. No accessory muscle use. ABDOMEN: Soft, nontender. Normoactive bowel sounds all 4 quadrants. No guarding or rebound, rigidity, no mass : No CVA tenderness EXTREMITIES: Normal range of motion. Patient does have some mild weeping of the left lower extremity. Neurovascularly intact NEUROLOGICAL: Cranial nerves II through XII grossly intact. Moving all extremities SKIN: Warm, dry, no petechiae, no rashes or lesions. Initial Vital Signs Initial Vital Signs: Vital Signs Temperature 98.6 F 10/09/20 09:51 Pulse Rate 99 H 10/09/20 09:51 Respiratory Rate 24 10/09/20 09:51 Blood Pressure 197/89 H 10/09/20 09:51 Pulse Oximetry 96 10/09/20 09:51 Course Orders Ordered: ED Orders 10/09/20 10:40 Complete Blood Count AUTO DIFF Stat Comprehensive Metabolic Panel Stat Lactate (Lactic Acid) Stat NT-proBNP (BNP-Adult 18+) Stat Troponin & CK Cardiac Panel Stat 10/09/20 11:57 Prothrombin Time INR Stat 10/09/20 12:15 Urine Culture Stat Urine Microscopic Stat 10/09/20 12:48 Troponin I Stat 10/09/20 13:09 COVID19 - ADMIT ([employer]ATOR swab/PCR) Stat Insulin Glargine (Insulin Glargine 100 Unit/Ml 3ml Pen) 14 unit SUBCUT BEDTIME MARIAA Discontinued Medications Furosemide (Furosemide 40 Mg/4 Ml Vial) 40 mg IV NOW ONE Stop: 10/09/20 12:11 Last Admin: 10/09/20 13:06 Dose: 40 mg Documented by: MARKOS Consultations Consultation #1: Dr. Hayes from cardiology, they are happy to see the patient if there are beds available [facility]. They agree with plan for diuresis. Time: 13:20 Consultation #2: Dr. Reveles, hospitalist accepts for transfer secondary to lack of bed availability. Patient does need to be kept for observation with trending upwards troponins. She would likely benefit from having Cardiology available. Vital Signs Vital signs: Vital Signs - 8 hr 10/09/20 11:30 10/09/20 11:31 10/09/20 12:00 Pulse Rate 80 80 77 Respiratory Rate 22 23 Blood Pressure 173/72 H Pulse Oximetry 96 97 97 10/09/20 12:01 10/09/20 13:08 10/09/20 13:10 Pulse Rate 79 85 81 Respiratory Rate 14 22 Blood Pressure 198/84 H 185/75 H Pulse Oximetry 97 96 97 10/09/20 13:30 10/09/20 13:31 10/09/20 14:00 Pulse Rate 78 78 88 Respiratory Rate 18 20 Blood Pressure 182/74 H Pulse Oximetry 95 95 96 10/09/20 14:02 10/09/20 14:30 10/09/20 14:31 Pulse Rate 86 79 80 Respiratory Rate Blood Pressure 200/83 H 178/77 H Pulse Oximetry 98 94 93 10/09/20 15:00 10/09/20 15:30 10/09/20 16:23 Pulse Rate 80 74 78 Respiratory Rate Blood Pressure 169/72 H 183/75 H Pulse Oximetry 94 90 L 96 10/09/20 16:30 10/09/20 16:45 Pulse Rate 79 74 Respiratory Rate 22 20 Blood Pressure 182/76 H Pulse Oximetry 95 94 MDM - SOB/Dyspnea Lab Data Attestation: I reviewed the patient's lab results. Result diagrams: 10/09/20 10:40 10/09/20 10:40 Labs: Lab Results 10/09/20 10/09/20 10/09/20 Range/Units 10:40 10:40 10:40 WBC 11.6 H (4.5-11.0) X10^3/uL RBC 3.54 L (4.0-5.2) X10^6/uL Hgb 9.7 L (12.0-16.0) g/dL Hct 29.0 L (36-46) % MCV 82.0 (80-100) fL MCH 27.3 (26-34) PG MCHC 33.3 (30-36) % RDW 17.2 H (11.6-14.8) % Plt Count 241 (150-400) X10^3/uL Neut % (Auto) 86.2 H (50-75) % Lymph % (Auto) 4.7 L (25-40) % [place] % (Auto) 8.7 (3-14) % Eos % (Auto) 0.1 L (2-4) % Baso % (Auto) 0.3 (0-2) % Neut # (Auto) 86726 H (0914-3318) /uL Lymph # (Auto) 500 L (4581-6560) /uL [place] # (Auto) 1000 H (0-900) /uL Eos # (Auto) 0 (0-450) /uL Baso # (Auto) 0 (0-100) /uL PT (10.1-12.7) SECONDS INR (0.9-1.3) Sodium 136 L (137-145) mmol/L Potassium 3.8 (3.4-5.1) mmol/L Chloride 104 (98-107) mmol/L Carbon Dioxide 26 (22-32) mmol/L BUN 42 H (7-17) mg/dL Creatinine 1.73 H (0.52-1.04) mg/dL Estimated GFR 27.9 L (>60) mL/min BUN/Creatinine Ratio 24.3 H (6-22) Glucose 157 H (80-110) mg/dL Lactate 1.4 (0.7-2.1) mmol/L Calcium 9.2 (8.4-10.2) mg/dL Total Bilirubin 0.4 (0.2-1.3) mg/dL AST 32 (14-36) IU/L ALT 22 (<35) IU/L Alkaline Phosphatase 76 (38-126) U/L Total Creatine Kinase (30-135) U/L CK-MB (CK-2) CK-MB (CK-2) Rel Index Troponin I (0.01-0.034) ng/mL NT-Pro-B Natriuret Pep 2700 H (<450) pg/mL Total Protein 6.6 (6.3-8.2) g/dL Albumin 3.6 (3.5-5.0) g/dL Globulin 3.0 (1.7-4.1) g/dL Albumin/Globulin Ratio 1.2 (1.0-2.8) Urine RBC (0-5/HPF) Urine WBC (0-5/HPF) Ur Squamous Epith Cells (0-5/HPF) Amorphous Sediment Urine Bacteria (None) Urine Mucus (Negative) Ur Culture Indicated? SARS-CoV-2 (PCR) (Negative) 10/09/20 10/09/20 10/09/20 Range/Units 10:40 11:57 12:15 WBC (4.5-11.0) X10^3/uL RBC (4.0-5.2) X10^6/uL Hgb (12.0-16.0) g/dL Hct (36-46) % MCV (80-100) fL MCH (26-34) PG MCHC (30-36) % RDW (11.6-14.8) % Plt Count (150-400) X10^3/uL Neut % (Auto) (50-75) % Lymph % (Auto) (25-40) % [place] % (Auto) (3-14) % Eos % (Auto) (2-4) % Baso % (Auto) (0-2) % Neut # (Auto) (0191-6162) /uL Lymph # (Auto) (1307-6332) /uL [place] # (Auto) (0-900) /uL Eos # (Auto) (0-450) /uL Baso # (Auto) (0-100) /uL PT 16.5 H (10.1-12.7) SECONDS INR 1.4 H (0.9-1.3) Sodium (137-145) mmol/L Potassium (3.4-5.1) mmol/L Chloride (98-107) mmol/L Carbon Dioxide (22-32) mmol/L BUN (7-17) mg/dL Creatinine (0.52-1.04) mg/dL Estimated GFR (>60) mL/min BUN/Creatinine Ratio (6-22) Glucose (80-110) mg/dL Lactate (0.7-2.1) mmol/L Calcium (8.4-10.2) mg/dL Total Bilirubin (0.2-1.3) mg/dL AST (14-36) IU/L ALT (<35) IU/L Alkaline Phosphatase (38-126) U/L Total Creatine Kinase 31 (30-135) U/L CK-MB (CK-2) TNP CK-MB (CK-2) Rel Index TNP Troponin I 0.066 H (0.01-0.034) ng/mL NT-Pro-B Natriuret Pep (<450) pg/mL Total Protein (6.3-8.2) g/dL Albumin (3.5-5.0) g/dL Globulin (1.7-4.1) g/dL Albumin/Globulin Ratio (1.0-2.8) Urine RBC 1-5/hpf (0-5/HPF) Urine WBC >100/hpf H (0-5/HPF) Ur Squamous Epith Cells 1-5 /hpf (0-5/HPF) Amorphous Sediment 1+ Urine Bacteria Many (>30) H (None) Urine Mucus 1+ H (Negative) Ur Culture Indicated? Specimen cultured SARS-CoV-2 (PCR) (Negative) 10/09/20 10/09/20 Range/Units 12:48 13:09 WBC (4.5-11.0) X10^3/uL RBC (4.0-5.2) X10^6/uL Hgb (12.0-16.0) g/dL Hct (36-46) % MCV (80-100) fL MCH (26-34) PG MCHC (30-36) % RDW (11.6-14.8) % Plt Count (150-400) X10^3/uL Neut % (Auto) (50-75) % Lymph % (Auto) (25-40) % [place] % (Auto) (3-14) % Eos % (Auto) (2-4) % Baso % (Auto) (0-2) % Neut # (Auto) (3798-8550) /uL Lymph # (Auto) (3077-5023) /uL [place] # (Auto) (0-900) /uL Eos # (Auto) (0-450) /uL Baso # (Auto) (0-100) /uL PT (10.1-12.7) SECONDS INR (0.9-1.3) Sodium (137-145) mmol/L Potassium (3.4-5.1) mmol/L Chloride (98-107) mmol/L Carbon Dioxide (22-32) mmol/L BUN (7-17) mg/dL Creatinine (0.52-1.04) mg/dL Estimated GFR (>60) mL/min BUN/Creatinine Ratio (6-22) Glucose (80-110) mg/dL Lactate (0.7-2.1) mmol/L Calcium (8.4-10.2) mg/dL Total Bilirubin (0.2-1.3) mg/dL AST (14-36) IU/L ALT (<35) IU/L Alkaline Phosphatase (38-126) U/L Total Creatine Kinase (30-135) U/L CK-MB (CK-2) CK-MB (CK-2) Rel Index Troponin I 0.072 H (0.01-0.034) ng/mL NT-Pro-B Natriuret Pep (<450) pg/mL Total Protein (6.3-8.2) g/dL Albumin (3.5-5.0) g/dL Globulin (1.7-4.1) g/dL Albumin/Globulin Ratio (1.0-2.8) Urine RBC (0-5/HPF) Urine WBC (0-5/HPF) Ur Squamous Epith Cells (0-5/HPF) Amorphous Sediment Urine Bacteria (None) Urine Mucus (Negative) Ur Culture Indicated? SARS-CoV-2 (PCR) Negative (Negative) Urine Dip Bedside Urine Glucose Negative Bedside Urine Bilirubin - Negative Bedside Urine Ketone - Negative Urine Specific [place] 1.010 Bedside Urine Occult Blood +/- Bedside Urine pH 7.0 Bedside Urine Protein ++ 100 Bedside Urine Urobilinogen - Negative Bedside Urine Nitrite - Negative Bedside Urine Leukocytes ++ 125 Esterase Imaging Data Chest x-ray: Radiologist's Impression: [address] [id number] ReportSigned Patient: Jackie Orta R#: [id number]: 5Acct:[id number]/Sex: 85 / FDate of Service: 10/09/20Loc: EDAccession Number: [id number] Procedure: XR chest 1V Ordering Provider: Mackenzie Hardin D.O. PROCEDURE: XR CHEST 1V INDICATIONS: shortness of breath TECHNIQUE: One view of the chest was acquired. COMPARISON: [facility], CT, CT ANGIO CHEST PE PROTOCOL, 06/08/2020, 13:38. [facility], CR, XR CHEST 1V, 07/17/2020, 9:56. [facility], CR, XR CHEST 1V, 07/13/2020, 9:06. FINDINGS: Surgical changes and devices: None. Lungs and pleura: Minimal streaky opacity at the right lung base. Mild bibasilar hazy opacity. No consolidation. No large pleural effusions. No pneumothorax. Mediastinum: Mediastinal contours appear unchanged. Aortic arch atherosclerotic calcifications. Heart size is normal. Bones and chest wall: No suspicious bony lesions. Overlying soft tissues appear unremarkable. IMPRESSION: Suspect bibasilar atelectasis. No consolidation. Dictated by: Dominic Muller M.D. on 10/09/2020 at 10:18 Approved by: Dominic Muller M.D. on 10/09/2020 at 10:21 ECG Data Attestation: I personally reviewed and interpreted this ECG as follows: Prior ECG tracings: available for review Interpretation: Sinus rhythm nonspecific ST changes. No elevation appreciated. Rate 81, AR 180, QRS 88 and QTC of 511. Patient has prior EKG from 07/17/2020 shows AFib with RVR. MDM Narrative Medical decision making narrative: This is an 85-year-old female comes with complaint of increasing shortness of breath and swelling in her lower extremities. Patient states her Lasix was stopped and changed to a new diuretic which I suspect is torsemide although I was unable to confirm this with her primary care office. Patient has had slowly increasing renal function as well as and improving BNP but worsening clinical exam. Patient noted to have a troponin which is trending upwards, she has not had any chest pain or pressure but would be concerned about possible troponin leak. Patient does not have any acute ST changes appreciated today. She has a normal normal sinus rhythm here in the department and on EKG. Spoke with Cardiology who does recommend diuresis. Patient was kindly accepted by the hospitalist at [facility]. Discharge Plan Departure Patient Disposition: [facility] Clinical Impression: Acute exacerbation of CHF (congestive heart failure) Prescriptions: No Action ezetimibe [Zetia] 10 MG tablet 10 mg PO DAILY Qty: 0 RF: 0 insulin lispro [Humalog U-100 Insulin] 100 UNIT/1 ML solution See Protocol sliding scale dose SUBCUT DIRECTED PRN (Reason: sliding scale) Qty: 0 RF: 0 prednisone 5 mg tablet 5 mg PO QAM RF: 0 allopurinol 100 mg tablet 300 mg PO DAILY RF: 0 levothyroxine 125 mcg tablet 125 mcg PO DAILY RF: 0 rivaroxaban 15 mg tablet 15 mg PO DAILY RF: 0 colchicine [Colcrys] 0.6 mg Tablet See Rx Instructions .ROUTE .COMPLEX MDD 3 tab PRN (Reason: Gout) RF: 0 amlodipine [Norvasc] 5 mg tablet 10 mg PO DAILY RF: 0 rosuvastatin 10 mg tablet 5 mg PO BEDTIME RF: 0 prednisone 1 mg tablet 3 mg PO QAM RF: 0 (DME) FreeStyle Thomas 14 Day Sensor Kit MISCELLANEOUS RF: 0 acetaminophen 325 mg Tablet 325 mg PO PRN PRN (Reason: pain) RF: 0 Lantus Solostar U-100 Insulin 100 unit/mL (3 mL) insulin pen 22 unit SUBCUT QPM RF: 0 Lantus Solostar U-100 Insulin 100 unit/mL (3 mL) Insulin Pen 24 unit SUBCUT QAM RF: 0 amiodarone 400 mg Tablet 400 mg PO BID RF: 0 furosemide 20 mg tablet 20 mg PO BID RF: 0 potassium chloride [Klor-Con M20] 20 mEq Tablet,Er Particles/Crystals 20 meq PO DAILYCC Qty: 60 RF: 1 Referrals: Benigno Mahan MD [Primary Care Provider] -
[2020-10-09 11:04] LABS: NT-proBNP (BNP-Adult 18+) 2700 pg/mL (<450)
[2020-10-09 11:19] LABS: Creatine Kinase 31 U/L (30-135)
[2020-10-09 11:32] LABS: Troponin I 0.066 ng/mL (0.01-0.034)
[2020-10-09 12:43] LABS: Amorphous Sediment Urine 1+; Bacteria Urine Many (>30); Culture Indicated Urine Specimen Cultured; Mucus Urine 1+ (Negative); RBC Urine 1-5/HPF (0-5/HPF); Squamous Epithelial Cell Urine 1-5 /HPF (0-5/HPF); WBC Urine >100/HPF (0-5/HPF)
[2020-10-09 12:59] LABS: INR 1.4 (0.9-1.3); Prothrombin Time 16.5 SECONDS (10.1-12.7)
[2020-10-09] MEDS: FUROSEMIDE 40 MG/4 ML VIAL IV (13:06)
[2020-10-09 13:23] LABS: Troponin I 0.072 ng/mL (0.01-0.034)
[2020-10-09 14:08] LABS: COVID19 - ADMIT (NP swab/PCR) Negative (Negative)
--- NOTE | 2020-10-09 19:51 | PC.NURSE ---
pt's blood pressure trending up. Dr. rangel aware. ok to transfer patient.
== END 2020-10-09 19:55 | disposition short-term general hospital (02) ==
PROVIDERS: Emergency Provider Emergency Medicine; PCP Family Medicine
DX: I50.9 Heart failure, unspecified (principal); R06.02 Shortness of breath; R30.0 Dysuria; Z20.822 Contact with and (suspected) exposure to COVID-19
CPT/HCPCS: 36415; 71045; 80053; 81003; 81015; 82550; 83605; 83880; 84484; 85025; 85610; 87077; 87086; 87186; 87635; 93005; 93010; 96374; 99284; C9803; J1815; J1940

== ENCOUNTER 2020-10-23 01:05 | Inpatient (IN) | payer MEDICARE, OTHER, SELFPAY ==
[2020-07-13 12:17] VITALS: BMI 26.4
[2020-10-23] VITALS (12 sets, daily range): BP systolic 133–163; BP diastolic 52–72; PULSE 72–90; RESP 14–44; TEMP 36.6–37.3; O2SAT 89–98; BMI 26.6
--- NOTE | 2020-10-23 01:23 | ED.GENADULT ---
HPI - General Adult General Chief complaint: Upper Respiratory Symptoms Stated complaint: short of breath Time Seen by Provider: 10/23/20 01:12 Source: patient and EMS Mode of arrival: EMS Limitations: no limitations History of Present Illness HPI narrative: 85-year-old female who is brought in by EMS for evaluation of shortness of breath. She has a history of CHF. Is currently on Lasix. States that for the past several days she has had increasing issues with breathing. She states that last evening she went to bed feeling somewhat worse than what she has been over the past couple days. She does wear CPAP at night and this did seem to help her symptoms somewhat however shortly prior to arrival she woke up and sat up on the edge of the bed and was very short of breath. No chest pain. She has been taking her medications as directed. She contacted EMS. Per their report when they arrived her oxygen saturations were in the mid 80s. This improved with oxygen by nasal cannula. She did receive aspirin prior to arrival. She also received nitroglycerin prior to arrival. By the time she came here to the emergency department she states she did feel somewhat better but not back to the way that she has been feeling for the past couple days. She states that having oxygen on does make her feel much better. Has not had a cough. No fevers. Related Data Home Medications Medication Instructions Recorded Confirmed ezetimibe 10 mg tablet (Zetia) 10 mg PO DAILY #0 10/16/12 07/23/20 insulin lispro 100 unit/mL See Protocol SUBCUT DIRECTED 05/31/16 07/23/20 subcutaneous solution (Humalog PRN #0 U-100 Insulin) allopurinol 100 mg tablet 300 mg PO DAILY 08/08/18 07/23/20 levothyroxine 125 mcg tablet 125 mcg PO DAILY 08/08/18 07/23/20 prednisone 5 mg tablet 5 mg PO QAM 08/08/18 07/23/20 rivaroxaban 15 mg tablet 15 mg PO DAILY 08/08/18 07/23/20 colchicine 0.6 mg tablet (Colcrys) See Rx Instructions .ROUTE 01/28/19 07/13/20 .COMPLEX PRN MDD 3 tab acetaminophen 325 mg tablet 325 mg PO PRN PRN 05/28/19 07/14/20 flash glucose sensor (FreeStyle 05/28/19 07/23/20 Thomas 14 Day Sensor) insulin glargine 100 unit/mL (3 22 unit SUBCUT QPM 05/28/19 07/23/20 mL) subcutaneous pen (Lantus Solostar U-100 Insulin) prednisone 1 mg tablet 3 mg PO QAM 05/28/19 07/23/20 insulin glargine 100 unit/mL (3 24 unit SUBCUT QAM 05/07/20 07/23/20 mL) subcutaneous pen (Lantus Solostar U-100 Insulin) amlodipine 5 mg tablet (Norvasc) 10 mg PO DAILY 06/03/20 07/23/20 rosuvastatin 10 mg tablet 5 mg PO BEDTIME 06/03/20 07/23/20 amiodarone 400 mg tablet 400 mg PO BID 07/13/20 07/23/20 furosemide 20 mg tablet 20 mg PO BID 07/13/20 07/23/20 Previous Rx's Medication Instructions Recorded potassium chloride 20 mEq 20 meq PO DAILYCC #60 tab 07/14/20 tablet,extended release(part/cryst) (Klor-Con M) Allergies Allergy/AdvReac Type Severity Reaction Status Date / Time kiwi Allergy Severe ANAPHYLAXIS Verified 10/09/20 09:51 Sulfa (Sulfonamide Allergy Severe unknown Verified 10/09/20 09:51 Antibiotics) meperidine AdvReac Severe I GO NUTS Verified 10/09/20 09:51 morphine AdvReac Severe DIZZY Verified 10/09/20 09:51 Review of Systems Constitutional Constitutional: Denies fever(s) Eyes Eyes: Reports system reviewed and no additional complaints, except as documented ENT Ears, Nose, Mouth, and Throat: Denies sore throat Cardiovascular Cardiovascular: Denies chest pain, Reports dyspnea and Reports dyspnea on exertion Respiratory Respiratory: Denies chest congestion, Denies cough, Reports dyspnea, Reports dyspnea on exertion and Denies wheezing Gastrointestinal Gastrointestinal: Reports system reviewed and no additional complaints, except as documented, Denies change in bowel habits, Denies nausea and Denies vomiting Genitourinary Genitourinary: Reports system reviewed and no additional complaints, except as documented Musculoskeletal Musculoskeletal: Denies myalgias Integumentary/Breasts Skin/Breast: Reports system reviewed and no additional complaints, except as documented Neurologic Neurologic: Reports system reviewed and no additional complaints, except as documented Psychiatric Psychiatric: Reports system reviewed and no additional complaints, except as documented Endocrine Endocrine: Reports system reviewed and no additional complaints, except as documented Hematologic/Lymphatic On Anticoagulants: Yes Allergic/Immunologic Allergic/Immunologic: Denies wheezing Patient History Medical History CHF (congestive heart failure) HTN (hypertension) Hypoglycemia Palpitations Paroxysmal atrial fibrillation Stable angina Surgical History No pertinent past surgical history Family History Family/Other Diabetes mellitus Father Loud snoring Hypertension Heart disease Mother Hypertension Heart disease Family/Other Heart disease Hypertension Social History household members: children Smoking Status: Never smoker alcohol intake: current Smoking Status: Never smoker alcohol intake frequency: a few times a week Alcohol type: hard liquor Substance Use Type: does not use Exam Initial Vital Signs Initial Vital Signs: Vital Signs Temperature 97.9 F 10/23/20 01:10 Pulse Rate 90 10/23/20 01:10 Respiratory Rate 26 H 10/23/20 01:10 Blood Pressure 133/60 10/23/20 01:10 Pulse Oximetry 96 10/23/20 01:10 Const General: cooperative and comfortable HENMT Head: normal to inspection and normocephalic Eyes General: appearance normal, both eyes and all related structures Chest Chest: No crepitus Resp Effort & Inspection: no cough, labored and tachypneic Auscultation: clear to auscultation bilaterally Cardio Rate: regular rate Rhythm: regular rhythm Heart Sounds: murmur GI Inspection: normal to inspection and non-distended Back/Spine/Pelvis Back: normal to inspection Skin General: no rashes or lesions noted Neuro General: patient alert, patient awake and patient oriented x3 Extrem General: capillary refill normal and edema Psych Appearance: grossly normal and well kempt Scores GCS Smith coma scale eye opening: Spontaneous Smith coma scale verbal response: Orientated [place] coma scale motor response: Obey commands Smith coma scale total score: 15 Course Orders Ordered: ED Orders 10/23/20 01:24 XR chest 1V Stat EKG-12 Lead Stat 10/23/20 01:40 Complete Blood Count AUTO DIFF Stat Comprehensive Metabolic Panel Stat Lipase Stat NT-proBNP (BNP-Adult 18+) Stat Partial Thromboplastin Time Stat Procalcitonin Stat Prothrombin Time INR Stat Troponin & CK Cardiac Panel Stat 10/23/20 02:00 COVID19 - ADMIT ([employer] swab/PCR) Stat Heparin Sodium/Dextrose (Heparin Drip) 25,000 unit in 500 mls @ 18.507 mls/hr IV CONT MARIAA; Protocol Last Admin: 10/23/20 03:45 Dose: 12 units/kg/hr, 18.507 mls/hr Documented by: ANGELES Discontinued Medications Furosemide (Furosemide 100 Mg/10 Ml Vial) 60 mg IV NOW ONE Stop: 10/23/20 01:40 Last Admin: 10/23/20 02:05 Dose: 60 mg Documented by: MIGUEL A Heparin Sodium (Porcine) (Heparin 5,000 Unit/Ml Vial) 4,000 unit IV NOW ONE Stop: 10/23/20 03:06 Last Admin: 10/23/20 03:44 Dose: 4,000 unit Documented by: ANGELES Azithromycin 500 mg/ Dextrose 250 mls @ 250 mls/hr IV NOW ONE Stop: 10/23/20 02:51 Last Admin: 10/23/20 03:43 Dose: 250 mls/hr Documented by: ANGELES Vital Signs Vital signs: Vital Signs - 8 hr 10/23/20 01:10 10/23/20 01:30 10/23/20 02:00 Temperature 97.9 F Pulse Rate 89 90 85 Respiratory Rate 30 H 29 H 24 Blood Pressure 133/60 163/72 H 161/68 H Pulse Oximetry 98 89 L 95 10/23/20 02:30 10/23/20 03:00 Temperature Pulse Rate 75 76 Respiratory Rate 22 20 Blood Pressure 144/66 H 143/65 H Pulse Oximetry 95 95 Medical Decision Making Medical Records Medical records reviewed: Yes I reviewed the patient's medical records. Lab Data Lab results reviewed: Yes I reviewed the patient's lab results. Result diagrams: 10/23/20 01:40 10/23/20 01:40 Labs: Lab Results 10/23/20 10/23/20 10/23/20 Range/Units 01:40 01:40 01:40 WBC 22.5 H (4.5-11.0) X10^3/uL RBC 3.53 L (4.0-5.2) X10^6/uL Hgb 9.3 L (12.0-16.0) g/dL Hct 29.2 L (36-46) % MCV 82.5 (80-100) fL MCH 26.3 (26-34) PG MCHC 31.8 (30-36) % RDW 17.0 H (11.6-14.8) % Plt Count 236 (150-400) X10^3/uL Neut % (Auto) 91.0 H (50-75) % Lymph % (Auto) 1.1 L (25-40) % Stanley % (Auto) 7.3 (3-14) % Eos % (Auto) 0.1 L (2-4) % Baso % (Auto) 0.5 (0-2) % Neut # (Auto) 46923 H (1650-5091) /uL Lymph # (Auto) 200 L (2273-2176) /uL Stanley # (Auto) 1600 H (0-900) /uL Eos # (Auto) 0 (0-450) /uL Baso # (Auto) 100 (0-100) /uL PT (10.1-12.7) SECONDS INR (0.9-1.3) APTT (26.4-36.2) SECONDS Sodium 135 L (137-145) mmol/L Potassium 4.3 (3.4-5.1) mmol/L Chloride 103 (98-107) mmol/L Carbon Dioxide 27 (22-32) mmol/L BUN 66 H (7-17) mg/dL Creatinine 1.76 H (0.52-1.04) mg/dL Estimated GFR 27.4 L (>60) mL/min BUN/Creatinine Ratio 37.5 H (6-22) Glucose 127 H (80-110) mg/dL Calcium 8.5 (8.4-10.2) mg/dL Total Bilirubin 0.5 (0.2-1.3) mg/dL AST 34 (14-36) IU/L ALT 23 (<35) IU/L Alkaline Phosphatase 72 (38-126) U/L Total Creatine Kinase 32 (30-135) U/L CK-MB (CK-2) TNP CK-MB (CK-2) Rel Index TNP Troponin I 0.545 H* (0.01-0.034) ng/mL NT-Pro-B Natriuret Pep 65413 H (<450) pg/mL Total Protein 6.0 L (6.3-8.2) g/dL Albumin 3.3 L (3.5-5.0) g/dL Globulin 2.7 (1.7-4.1) g/dL Albumin/Globulin Ratio 1.2 (1.0-2.8) Lipase 233 (23-300) U/L Procalcitonin (<0.5) ng/mL SARS-CoV-2 (PCR) (Negative) 10/23/20 10/23/20 10/23/20 Range/Units 01:40 01:40 02:00 WBC (4.5-11.0) X10^3/uL RBC (4.0-5.2) X10^6/uL Hgb (12.0-16.0) g/dL Hct (36-46) % MCV (80-100) fL MCH (26-34) PG MCHC (30-36) % RDW (11.6-14.8) % Plt Count (150-400) X10^3/uL Neut % (Auto) (50-75) % Lymph % (Auto) (25-40) % Stanley % (Auto) (3-14) % Eos % (Auto) (2-4) % Baso % (Auto) (0-2) % Neut # (Auto) (4901-1130) /uL Lymph # (Auto) (0235-5829) /uL Stanley # (Auto) (0-900) /uL Eos # (Auto) (0-450) /uL Baso # (Auto) (0-100) /uL PT 21.3 H (10.1-12.7) SECONDS INR 1.9 H (0.9-1.3) APTT 28 D (26.4-36.2) SECONDS Sodium (137-145) mmol/L Potassium (3.4-5.1) mmol/L Chloride (98-107) mmol/L Carbon Dioxide (22-32) mmol/L BUN (7-17) mg/dL Creatinine (0.52-1.04) mg/dL Estimated GFR (>60) mL/min BUN/Creatinine Ratio (6-22) Glucose (80-110) mg/dL Calcium (8.4-10.2) mg/dL Total Bilirubin (0.2-1.3) mg/dL AST (14-36) IU/L ALT (<35) IU/L Alkaline Phosphatase (38-126) U/L Total Creatine Kinase (30-135) U/L CK-MB (CK-2) CK-MB (CK-2) Rel Index Troponin I (0.01-0.034) ng/mL NT-Pro-B Natriuret Pep (<450) pg/mL Total Protein (6.3-8.2) g/dL Albumin (3.5-5.0) g/dL Globulin (1.7-4.1) g/dL Albumin/Globulin Ratio (1.0-2.8) Lipase (23-300) U/L Procalcitonin 0.14 (<0.5) ng/mL SARS-CoV-2 (PCR) Negative (Negative) Imaging Data Chest x-ray: Radiologist's Impression: Ill-defined consolidation right lower lobe could represent pneumonia. Diffuse bronchial wall thickening suspicious for edema or infection Recommend follow-up ECG Data Attestation: I personally reviewed and interpreted this ECG as follows: Interpretation: Sinus rhythm Ventricular rate 89 Normal axis Normal QRS QTC [address] T wave changes MDM Narrative Medical decision making narrative: Patient did hypoxic when she was on room air. This improved with oxygen by nasal cannula. She denied any chest pain. She does have lower extremity edema. Has an elevated BNP given her presentation she was given Lasix. She did receive aspirin and nitroglycerin prior to arrival. She has nonspecific changes on her EKG. Chest x-ray concerning for right-sided lower lobe pneumonia. Given her leukocytosis and also her presentation we will treat her with antibiotics for this. She was given azithromycin. Her troponin is also elevated. This is in the setting of no chest pain. She was started on heparin. Review of her notes show that she had a nuclear stress test done the beginning of the year which did not show any definitive signs of ischemia. She had an echocardiogram at that time which showed ejection fraction of 55-60%. I did discuss the case with Dr. Muro on-call for Cardiology who stated given her lack of chest discomfort, the nonspecific changes on the EKG, her baseline renal insufficiency that she would not be a candidate for catheterization. He recommended trending the troponins, treating her pneumonia, provided diuresis and echocardiogram in the morning. I did discuss the case with Dr. Hood who is on-call the patient's primary provider who will admit for further evaluation and treatment. I did discuss the findings with the patient she expressed understanding and agreement. Critical Care Time Critical Care Time Critical Care Time: Yes Total Critical Care Time: 35 Attestation: The high probability of a clinically significant, sudden or life threatening deterioration of the cardiovascular system(s) required my full and direct attention, intervention and personal management. The aggregate critical care time was 35 minutes. This time is in addition to time spent performing reported procedures but includes the following: [x] Data Review and interpretation [x] Patient assessment and monitoring of vital signs [x] Documentation [x] Medication orders and management Discharge Plan Departure Patient Disposition: Admitted As Inpatient Clinical Impression: Pneumonia, Acute exacerbation of CHF (congestive heart failure), Elevated troponin, Hypoxia Admit Date/Time: 10/23/20 03:06 Admit Provider: Benigno Mahan
--- NOTE | 2020-10-23 01:24 | DI.RAD.S_ITS ---
PROCEDURE: XR CHEST 1V INDICATIONS: Shortness of breath TECHNIQUE: One view of the chest was acquired. COMPARISON: [facility], CR, XR CHEST 1V, 10/09/2020, 9:58. FINDINGS: Surgical changes and devices: None. Lungs and pleura: There is an overall appearance of increased pulmonary vascularity. Increased focal opacity is noted within the right base. There is blunting of the costophrenic angles bilaterally. Mediastinum: Mediastinal contours appear normal. Heart size is normal. Bones and chest wall: No suspicious bony lesions. Overlying soft tissues appear unremarkable. IMPRESSION: Increased vascularity suggestive of edema. Focal opacity is noted within the right base most suggestive of pneumonia. Superimposed edema cannot be excluded. Trace effusions are noted. Dictated by: Sara Laguerre M.D. on 10/23/2020 at 11:18 Approved by: Sara Laguerre M.D. on 10/23/2020 at 11:19
--- NOTE | 2020-10-23 01:49 | PC.NURSE ---
Pt did room air trial. Pt spo2 dropped to 89% Placed on 1L of oxygen via n/c
[2020-10-23 02:05] LABS: Creatine Kinase 32 U/L (30-135); Lipase 233 U/L (23-300)
[2020-10-23] MEDS: FUROSEMIDE 100 MG/10 ML VIAL 60 MG IV (02:05)
[2020-10-23 02:06] LABS: Add Manual Diff / Slide Review NO; Alanine Aminotransferase 23 IU/L (<35); Albumin 3.3 g/dL (3.5-5.0); Albumin Globulin Ratio 1.2 (1.0-2.8); Alkaline Phosphatase 72 U/L (38-126); Aspartate Aminotransferase 34 IU/L (14-36); BUN Creatinine Ratio 37.5 (6-22); Basophils Absolute Auto 100 /uL (0-100); Basophils Percent Auto 0.5 % (0-2); Bilirubin Total 0.5 mg/dL (0.2-1.3); Blood Urea Nitrogen 66 mg/dL (7-17); Calcium 8.5 mg/dL (8.4-10.2); Carbon Dioxide 27 mmol/L (22-32); Chloride 103 mmol/L (98-107); Eosinophils Absolute Auto 0 /uL (0-450); Eosinophils Percent Auto 0.1 % (2-4); Estimated Glomerular Filt Rate 27.4 mL/min (>60); Globulin 2.7 g/dL (1.7-4.1); Glucose 127 mg/dL (80-110); HEMOLYSIS < 15 (0-50); Hematocrit 29.2 % (36-46); Hemoglobin 9.3 g/dL (12.0-16.0); Lymphocytes Absolute Auto 200 /uL (1100-4500); Lymphocytes Percent Auto 1.1 % (25-40); Mean Corpuscular HGB Conc 31.8 % (30-36); Mean Corpuscular Hemoglobin 26.3 PG (26-34); Mean Corpuscular Volume 82.5 fL (80-100); Monocytes Absolute Auto 1600 /uL (0-900); Monocytes Percent Auto 7.3 % (3-14); Neutrophils Absolute Auto 20500 /uL (1500-7000); Platelet Count 236 X10^3/uL (150-400); Potassium 4.3 mmol/L (3.4-5.1); Red Blood Cell Count 3.53 X10^6/uL (4.0-5.2); Sodium 135 mmol/L (137-145); White Blood Cell Count 22.5 X10^3/uL (4.5-11.0)
[2020-10-23 02:18] LABS: NT-proBNP (BNP-Adult 18+) 10500 pg/mL (<450)
[2020-10-23 02:42] LABS: Troponin I 0.545 ng/mL (0.01-0.034)
[2020-10-23 02:55] LABS: Procalcitonin 0.14 ng/mL (<0.5)
[2020-10-23 03:04] LABS: COVID19 - ADMIT (NP swab/PCR) Negative (Negative)
[2020-10-23 03:15] LABS: INR 1.9 (0.9-1.3); Prothrombin Time 21.3 SECONDS (10.1-12.7)
[2020-10-23 03:18] LABS: PTT Partial Thromboplastin Tim 28 SECONDS (26.4-36.2)
[2020-10-23] MEDS: AZITHROMYCIN 500 MG in DEXTROSE 5% IN WATER 250 ML IV (03:43)
[2020-10-23] MEDS: HEPARIN 5,000 UNIT/ML VIAL 4000 UNIT IV (03:44)
[2020-10-23] MEDS: HEPARIN DRIP 25,000 UNIT/500 ML IV.SOLN 18.507 UNIT IV (03:45)
--- NOTE | 2020-10-23 06:02 | DI.ECHO.S_ITS ---
[facility]---------+ [facility] +---------+ : : [address] : : : : [id number] : : : : Phone: [phone] Echocardiogram Report + + :Name: KELLY NAYLOR Study Date: 10/23/2020 Height: 67 in : :[facility] ReadingLocation: Weight: 170 lb : : Gender: Female BSA: 1.9 m2 : :: 1935 Age: 85 yrs BP: 137/60 mmHg: :Reason For Study: Elevated Troponin : :Ordering Physician: FAMILIA, : :MERE Performed By: Danny Diamond : :Referring: MERE BARBOSA : + + Interpretation Summary Limited study. Normal left ventricle size with ejection fraction 45-50%. Mild hypokinesis of apical and mid anterior wall and septum. Comparison is made with the echocardiogram of 10/10/2020, LV function has worsen with new wall motion abnormality. Procedure: A two-dimensional transthoracic echocardiogram with color flow and Doppler was performed in limited views only. The study quality was technically adequate. Comparison is made with the echocardiogram of 10/10/2020. Left Ventricle: The left ventricle is normal in size and wall thickness. Left ventricular systolic function is mildly reduced. The ejection fraction is estimated to be 45-50%. There is apical anterior wall hypokinesis. There is mid anteroseptal wall hypokinesis. There is apical septal wall hypokinesis. There are no other obvious focal wall motion abnormalities. Right Ventricle: The right ventricle is normal in size and function. Pericardium/ Pleura There is no pericardial effusion. MMode/2D Measurements & Calculations LVIDd: 5.4 cm LVIDs: 3.9 cm FS: 27.5 % IVSd: 0.82 cm LVPWd: 0.90 cm LV ray. diameter/BSA (cm/m^2): 2.8 LV sys. diameter/BSA (cm/m^2): 2.1 Electronically signed by: Dandy Castanon on Reading Physician:10/23/2020 03:06 PM
[2020-10-23] MEDS: levoFLOXacin 250 MG/50 ML PIGGYBACK 100 MG IV (08:16)
[2020-10-23 08:50] LABS: Troponin I 0.597 ng/mL (0.01-0.034)
[2020-10-23 09:02] LABS: Cholesterol 130 mg/dL (140-199); HDL Cholesterol 67 mg/dL (40-60); LDL Cholesterol Calculated 52 mg/dL (<100); Triglycerides 53 mg/dL (35-150)
[2020-10-23] MEDS: allopurinoL 100 MG TABLET 150 MG PO (09:35)
[2020-10-23] MEDS: cefTRIAXone 2,000 MG in SODIUM CHLORIDE 0.9% 100 ML 200 ML IV (09:35)
[2020-10-23] MEDS: EZETIMIBE 10 MG TABLET PO (09:35)
[2020-10-23] MEDS: AMLODIPINE 5 MG TABLET 10 MG PO (09:35)
[2020-10-23] MEDS: predniSONE 20 MG TABLET PO (09:35)
[2020-10-23] MEDS: AMIODARONE 200 MG TABLET 400 MG PO ×2 (09:35→21:12)
[2020-10-23] MEDS: FUROSEMIDE 40 MG/4 ML VIAL IV (10:13)
[2020-10-23] MEDS: INSULIN GLARGINE 100 UNIT/ML 3ML PEN 30 UNIT SUBCUT (11:08)
[2020-10-23] MEDS: RIVAROXABAN 10 MG TABLET 15 MG PO (11:12)
[2020-10-23] MEDS: INSULIN LISPRO 100 UNIT/ML 3ML VIAL SUBCUT (12:16)
--- NOTE | 2020-10-23 13:21 | PM.HP.1 ---
History of Present Illness History of Present Illness Date Patient Seen: 10/23/20 Time Patient Seen: 08:10 Date of Onset of Symptoms: 10/19/20 Chief complaint: short of breath Narrative: Patient is an 85-year-old white female well known to me with history of atrial fibrillation and congestive heart failure recently admitted to [facility] for evaluation. At that time she had been switched from torsemide to Lasix and had been doing better. I had seen her last week and she had been doing great. Over the last 6 days she has been having increasing shortness of breath and just feeling kind of decreased energy. No fevers no chills no cough slight increase in edema but her weight is been stable. She has had no bowel or bladder changes. She has had no dyspnea at rest but had been slowly getting more dyspneic with exertion. She was having no chest pain. Really has had no significant other changes. She did state she just felt kind of tired. She awoke the night of admission which was last night and has felt extremely short of breath. She was unable to do anything could hardly move around. And felt as if she really could not breathe and called EMS Patient History Medical History CHF (congestive heart failure) HTN (hypertension) Hypoglycemia Palpitations Paroxysmal atrial fibrillation Stable angina Surgical History No pertinent past surgical history Family & Social History Family History Family/Other Diabetes mellitus Father Loud snoring Hypertension Heart disease Mother Hypertension Heart disease Family/Other Heart disease Hypertension Social History: household members children Prior Living Arrangements House Safety & Behavioral: Feels Safe in Current Yes Environment Tobacco & Substance use: Smoking Status Never smoker alcohol intake current alcohol intake frequency a few times a week Substance Use Type does not use Meds Home Medications and Allergies Home Medications Medication Instructions Recorded Confirmed Type ezetimibe 10 mg tablet (Zetia) 10 mg PO DAILY #0 10/16/12 10/23/20 History insulin lispro 100 unit/mL See Protocol SUBCUT DIRECTED 05/31/16 10/23/20 History subcutaneous solution (Humalog PRN #0 U-100 Insulin) allopurinol 100 mg tablet 300 mg PO DAILY 08/08/18 10/23/20 History (Zyloprim) levothyroxine 125 mcg tablet 125 mcg PO DAILY 08/08/18 10/23/20 History (Synthroid) prednisone 5 mg tablet 20 mg PO QAM 08/08/18 10/23/20 History rivaroxaban 15 mg tablet (Xarelto) 15 mg PO DAILY 08/08/18 10/23/20 History colchicine 0.6 mg tablet (Colcrys) See Rx Instructions .ROUTE 01/28/19 10/23/20 History .COMPLEX PRN MDD 3 tab acetaminophen 325 mg tablet 325 mg PO PRN PRN 05/28/19 10/23/20 History (Tylenol) flash glucose sensor (FreeStyle 05/28/19 10/23/20 History Thomas 14 Day Sensor) insulin glargine 100 unit/mL (3 14 unit SUBCUT QPM 05/28/19 10/23/20 History mL) subcutaneous pen (Lantus Solostar U-100 Insulin) prednisone 1 mg tablet 20 mg PO QPM 05/28/19 10/23/20 History insulin glargine 100 unit/mL (3 25 unit SUBCUT QAM 05/07/20 10/23/20 History mL) subcutaneous pen (Lantus Solostar U-100 Insulin) amlodipine 5 mg tablet (Norvasc) 10 mg PO DAILY 06/03/20 10/23/20 History rosuvastatin 10 mg tablet 5 mg PO BEDTIME 06/03/20 10/23/20 History amiodarone 400 mg tablet (Pacerone) 400 mg PO BID 07/13/20 10/23/20 History furosemide 20 mg tablet (Lasix) 20 mg PO BID 07/13/20 10/23/20 History potassium chloride 20 mEq 20 meq PO DAILYCC #60 tab 07/14/20 10/23/20 Rx tablet,extended release(part/cryst) (Klor-Con M) Allergies Allergy/AdvReac Type Severity Reaction Status Date / Time kiwi Allergy Severe ANAPHYLAXIS Verified 10/09/20 09:51 Sulfa (Sulfonamide Allergy Severe unknown Verified 10/09/20 09:51 Antibiotics) meperidine AdvReac Severe I GO NUTS Verified 10/09/20 09:51 morphine AdvReac Severe DIZZY Verified 10/09/20 09:51 Review of Systems Review of Systems Narrative: No significant changes please see history and physical for pertinent positives and negatives Exam Vital Signs (past 8 hours): - 10/23/20 08:11 10/23/20 11:42 Temperature 98.0 F 98.3 F Pulse Rate 82 72 Respiratory Rate 15 14 Blood Pressure 158/66 H 147/52 H Pulse Oximetry 93 92 Oxygen Delivery Method Room Air Oxygen Flow Rate 1 Narrative Exam Narrative: Alert elderly female mildly short of breath in no acute distress. Mucous membranes are moist. Neck supple without adenopathy JVD or bruits. Lungs with diffuse crackles occasional rhonchi but no other changes. Abdomen is soft positive bowel sounds nontender. Extremities without cyanosis or clubbing. She has 2+ edema. Left leg shows some slight ecchymosis with a mid lechuga 1 cm open wound. Neurologic exam is normal. No other changes Objective ECG Impression: Normal sinus rhythm no specific EKG changes consistent with ischemia Imaging Chest x-ray: My impression: Appears to be increased vascularity suggestive pulmonary edema and a right base suggestive of pneumonia Labs Result Diagrams: 10/23/20 01:40 10/23/20 01:40 Labs: Laboratory Results - last 24 hr 10/23/20 10/23/20 10/23/20 01:40 01:40 01:40 WBC 22.5 H RBC 3.53 L Hgb 9.3 L Hct 29.2 L MCV 82.5 MCH 26.3 MCHC 31.8 RDW 17.0 H Plt Count 236 Neut % (Auto) 91.0 H Lymph % (Auto) 1.[address] % (Auto) 7.3 Eos % (Auto) 0.1 L Baso % (Auto) 0.5 Neut # (Auto) 05142 H Lymph # (Auto) [address] [place] # (Auto) 1600 H Eos # (Auto) 0 Baso # (Auto) 100 PT INR APTT Sodium 135 L Potassium 4.3 Chloride 103 Carbon Dioxide 27 BUN 66 H Creatinine 1.76 H Estimated GFR 27.4 L BUN/Creatinine Ratio 37.5 H Glucose 127 H Calcium 8.5 Total Bilirubin 0.5 AST 34 ALT 23 Alkaline Phosphatase 72 Total Creatine Kinase 32 CK-MB (CK-2) TNP CK-MB (CK-2) Rel Index TNP Troponin I 0.545 H* NT-Pro-B Natriuret Pep 92735 H Total Protein 6.0 L Albumin 3.3 L Globulin 2.7 Albumin/Globulin Ratio 1.2 Triglycerides Cholesterol LDL Cholesterol, Calc HDL Cholesterol Lipase 233 Procalcitonin SARS-CoV-2 (PCR) 10/23/20 10/23/20 10/23/20 01:40 01:40 02:00 WBC RBC Hgb Hct MCV MCH MCHC RDW Plt Count Neut % (Auto) Lymph % (Auto) [facility] % (Auto) Eos % (Auto) Baso % (Auto) Neut # (Auto) Lymph # (Auto) [facility] # (Auto) Eos # (Auto) Baso # (Auto) PT 21.3 H INR 1.9 H APTT 28 D Sodium Potassium Chloride Carbon Dioxide BUN Creatinine Estimated GFR BUN/Creatinine Ratio Glucose Calcium Total Bilirubin AST ALT Alkaline Phosphatase Total Creatine Kinase CK-MB (CK-2) CK-MB (CK-2) Rel Index Troponin I NT-Pro-B Natriuret Pep Total Protein Albumin Globulin Albumin/Globulin Ratio Triglycerides Cholesterol LDL Cholesterol, Calc HDL Cholesterol Lipase Procalcitonin 0.14 SARS-CoV-2 (PCR) Negative 10/23/20 10/23/20 08:00 08:00 WBC RBC Hgb Hct MCV MCH MCHC RDW Plt Count Neut % (Auto) Lymph % (Auto) [facility] % (Auto) Eos % (Auto) Baso % (Auto) Neut # (Auto) Lymph # (Auto) [facility] [place] # (Auto) Eos # (Auto) Baso # (Auto) PT INR APTT Sodium Potassium Chloride Carbon Dioxide BUN Creatinine Estimated GFR BUN/Creatinine Ratio Glucose Calcium Total Bilirubin AST ALT Alkaline Phosphatase Total Creatine Kinase CK-MB (CK-2) CK-MB (CK-2) Rel Index Troponin I 0.597 H* NT-Pro-B Natriuret Pep Total Protein Albumin Globulin Albumin/Globulin Ratio Triglycerides 53 Cholesterol 130 L LDL Cholesterol, Calc 52 HDL Cholesterol 67 H Lipase Procalcitonin SARS-CoV-2 (PCR) Assessment & Plan Assessment & Plan narrative: Dyspnea/acute respiratory failure. Suspect this is a combination of congestive heart failure left heart with pneumonia. Patient has significant elevation her white count anti significantly increase in her BNP. Symptoms are minimal other than her shortness of breath. At this point will treat with IV antibiotics and with IV Lasix. Will continue oxygen as needed and re-evaluate in a.m.. Pneumonia. On antibiotics. White count again tomorrow. As long as making improvement will proceed from there. She understands will call change. Questions answered. Elevated troponin. Discussed extensively with Dr. De Souza. He feels as if this is unlikely a primary ischemic issue with do no definitive findings on EKG and renal failure. Will repeat troponin in the morning. Will continue to follow. Certainly if symptoms change will have to address at that time. Congestive heart failure left. Last echo actually did not look too bad. But will obtain echo as recommendation of the Cardiology. Will follow with that. Recheck BMP tomorrow. IV Lasix today. Difficult because with infection we do not want to overdo diuresis but we will continue to follow. Will continue at 40 IV a day for now. She has had a good output at this point. Chronic renal failure. Not greatly changed. Will need to follow with diuresis. And infection. Recheck an a.m.. Type 2 diabetes. Patient is been followed and will set up insulin as close to her usual schedule is possible. Hypertension. Control is stable at this time. Will follow. Atrial fibrillation. In sinus at this point. Will continue usual medicine. Code status full. GI prophylaxis I do not think we need at this time. DVT prophylaxis on her usual anticoagulation. Should be stable. Disposition. Will have to see how things go. At this point she is safe to keep ear and on tele will be following closely.
--- NOTE | 2020-10-23 13:52 | PC.NURSE ---
A&Ox3. BP elevated 147/52, all other vss. Denies pain. BG 266, patient was given the prescribed sliding scale units but requested a different scale that better meets her coverage needs and Dr. Hawley agreed. Sliding scale was changed, see new order. SBA with walker. Call light within reach, bed low. 1L O2 stating around 92-95%. Continuous pulse ox on.
--- NOTE | 2020-10-23 16:26 | CM.DANOTE ---
Discharge Planning/Care Management DCP: asssessment: case received, EMR reviewed and met with pt. Introduced self and role. Pt is an 85 year old female who admitted early this mornin to care of PCP: Dr. Hawley. Cardiology is consulted. Payer: Medicare and [employer] [facility] Pt confirms that she has seen cardiology in past as an OUTPT: Dr. Borja and Dr. De Souza. She has very recently been at [facility]. She has had [facility] in the past and this terminated in July. She said RN was very helpful and she is hopeful that this can be reinstated. Placed call to [facility] and she was very agreeable to same. Initial clinical is faxed. Will be following this weekend. A Face/Face document and orders will need to be completed by the physician. CM Discharge Assessment Start: 10/23/20 16:12 Freq: Status: Active Protocol: Document 10/23/20 16:12 ITV (Rec: 10/23/20 16:26 ITV [id number]) Discharge Planning Assessment Advance Directives? Yes: POLST Advance Directives on File Yes History Provided By Patient,Family Member,Medical Record Prior Living Arrangements House Household Members children Comment adult daughter Jackie Avendano lives with pt. Is patient alert and oriented? Yes Comment none Patient/Family Preference Home with Home Health Comment Has used [facility] in past. Would like this again with RN only. Transportation Arrangement Friend anticipated to provide transportation upon D/C: [place] . Referrals Initiated Home Health If patient plan is home with home health Yes : Has signed face to face form been completed?
--- NOTE | 2020-10-23 18:45 | PC.NURSE ---
Addendum entered by Rebekah Maya R.N. 10/23/20 23:39: [address] Magistrate, Jena, phones on-call provider to discuss pt's status as acute care/floor and inform of this evening's troponin level as reported by Angelina @ 2200. Addendum entered by Rebekah Maya R.N. 10/23/20 21:59: Critical troponin reported by Angelina in lab as 0.572 which is trending down from previous value. Pt has denied pain this evening shift. Addendum entered by Rebekah Maya R.N. 10/23/20 21:37: Right ac iv site leaking fresh blood. IV site dc'd as pt has second line left forearm that flushes easily and is intact. Pressure dressing with bulky 4 x 4's and snug coban to site. Rinsed pt's own fleece blanket in shower as per pt request as has blood from leaking iv site on it. This was placed in clean black garbage bag for transport to home by pt's daughter for laundering. Lab in to draw blood. Blood glucose 140 so no short acting insulin given. Pt denies pain. 1L oxygen per nc saturation level 92-93% per continuous monitor. Pt reports breathing easier than upon admission. Original Note: Pt resting quietly in bed. Pt's daughter has visited this evening shift and care management has also seen patient. Up to commode with HEALTHCARE TECHNICIAN x 1 assist.
[2020-10-23] MEDS: ATORVASTATIN 20 MG TABLET 10 MG PO (21:13)
[2020-10-23] MEDS: INSULIN GLARGINE 100 UNIT/ML 3ML PEN 20 UNIT SUBCUT (21:14)
[2020-10-23] MEDS: SODIUM CHLORIDE 0.9% FLUSH 10 ML IV (21:15)
[2020-10-23 22:08] LABS: Troponin I 0.572 ng/mL (0.01-0.034)
--- NOTE | 2020-10-23 22:59 | PC.NURSE ---
Inpatient status confirmed with Dr. Fair pt is Acute Care Status.
[2020-10-24] VITALS (9 sets, daily range): BP systolic 135–154; BP diastolic 53–79; PULSE 68–82; RESP 14–20; TEMP 36.2–37.6; O2SAT 89–94
--- NOTE | 2020-10-24 03:02 | PC.NURSE ---
Patient is alert and oriented. Breath sounds with crackles at bases; oxygen at 0.5L/min per NC with sat of 91%. Denied SOB either at rest or when up to BSC. HRR w/murmur. Telemetry reading was SR w/prolonged QT. Denied nausea. BT present and is passing flatus. Denied dysuria, frequency or urgency with urination. Moves self in bed. Up to BSC with SBA. Extensive bruising on all extremities. Has pressure dressings to bilateral arms which are both CDI. Allevyn dressing to left anterior lower leg is CDI. 2+ bilateral LE edema and has swelling of bilateral UE as well. Denied pain. Fall risk score is moderate and bed alarm is activated.
[2020-10-24 05:20] LABS: Add Manual Diff / Slide Review NO; Basophils Absolute Auto 100 /uL (0-100); Basophils Percent Auto 0.4 % (0-2); Eosinophils Absolute Auto 0 /uL (0-450); Eosinophils Percent Auto 0.2 % (2-4); Hematocrit 25.3 % (36-46); Hemoglobin 8.2 g/dL (12.0-16.0); Lymphocytes Absolute Auto 1300 /uL (1100-4500); Lymphocytes Percent Auto 7.4 % (25-40); Mean Corpuscular HGB Conc 32.3 % (30-36); Mean Corpuscular Hemoglobin 26.4 PG (26-34); Mean Corpuscular Volume 81.8 fL (80-100); Monocytes Absolute Auto 1300 /uL (0-900); Monocytes Percent Auto 7.2 % (3-14); Neutrophils Absolute Auto 15500 /uL (1500-7000); Neutrophils Percent Auto 84.8 % (50-75); Platelet Count 194 X10^3/uL (150-400); Red Blood Cell Count 3.09 X10^6/uL (4.0-5.2); Red Cell Distribution Width 16.9 % (11.6-14.8); White Blood Cell Count 18.3 X10^3/uL (4.5-11.0)
[2020-10-24 05:30] LABS: BUN Creatinine Ratio 35.5 (6-22); Blood Urea Nitrogen 59 mg/dL (7-17); Calcium 8.6 mg/dL (8.4-10.2); Carbon Dioxide 27 mmol/L (22-32); Chloride 106 mmol/L (98-107); Creatine Kinase < 20 U/L (30-135); Estimated Glomerular Filt Rate 29.3 mL/min (>60); Glucose 54 mg/dL (80-110); HEMOLYSIS < 15 (0-50); Potassium 3.4 mmol/L (3.4-5.1); Sodium 138 mmol/L (137-145)
[2020-10-24 05:39] LABS: NT-proBNP (BNP-Adult 18+) 8450 pg/mL (<450)
[2020-10-24] MEDS: LEVOTHYROXINE 125 MCG TABLET PO (05:44)
[2020-10-24 05:50] LABS: Troponin I 0.498 ng/mL (0.01-0.034)
--- NOTE | 2020-10-24 06:19 | PC.NURSE ---
Pt felt like they had low BG, checked CGM for a reading of 48. Pt drank 6oz OJ and this [employer] rechecked 20 min later for a reading of 89
[2020-10-24] MEDS: cefTRIAXone 2,000 MG in SODIUM CHLORIDE 0.9% 100 ML 200 ML IV (08:03)
[2020-10-24] MEDS: EZETIMIBE 10 MG TABLET PO (08:21)
[2020-10-24] MEDS: predniSONE 20 MG TABLET PO (08:21)
[2020-10-24] MEDS: AMIODARONE 200 MG TABLET 400 MG PO ×2 (08:21→20:10)
[2020-10-24] MEDS: POTASSIUM CHLORIDE 20 MEQ TAB PO (08:21)
[2020-10-24] MEDS: allopurinoL 100 MG TABLET 150 MG PO (08:21)
[2020-10-24] MEDS: RIVAROXABAN 10 MG TABLET 15 MG PO (08:22)
[2020-10-24] MEDS: AMLODIPINE 5 MG TABLET 10 MG PO (08:23)
[2020-10-24] MEDS: FUROSEMIDE 40 MG/4 ML VIAL IV (08:30)
[2020-10-24] MEDS: SODIUM CHLORIDE 0.9% FLUSH 10 ML IV ×2 (08:30→20:11)
--- NOTE | 2020-10-24 10:02 | P.PN_ITS ---
Subjective Subjective Date Patient Seen: 10/24/20 Time Patient Seen: 10:02 Interval history: Patient sitting comfortably in bed. Says her shortness of breath is better still quite weak does not really want to get out of bed. She is eating okay. She feels a little bit swollen. She says she always has loss of lower extremity edema. Little bit Anali Gel. She is not complaining of cough congestion she has not had any fevers overnight and vital signs have been s table. In Exam Vital Signs (past 8 hours): - 10/24/20 05:00 10/24/20 09:00 Temperature 98.1 F 98.1 F Pulse Rate 79 82 Respiratory Rate 16 20 Blood Pressure 135/56 L 147/53 H Pulse Oximetry 93 89 L Oxygen Delivery Method Nasal Cannula Oxygen Flow Rate 0 Narrative Exam Narrative: Gen.: Alert good historian resting comfortably in bed HEENT: Pupils equal round and reactive or mucosa is moist neck is supple Cardio: S1-S2 systolic murmur and some irregularity of the heartbeat Respiratory: Lungs show decreased breath sounds at bases Abdomen: Soft nontender no rebound or guarding no liver spleen enlargement no appreciable hernias Extremities: Lower extremity edema 2+ Neurologic: Grossly intact. Objective Labs Result Diagrams: 10/24/20 04:53 10/24/20 04:53 Labs: Laboratory Results - last 24 hr 10/23/20 10/24/20 10/24/20 21:15 04:53 04:53 WBC 18.3 H RBC 3.09 L Hgb 8.2 L Hct 25.3 L MCV 81.8 MCH 26.4 MCHC 32.3 RDW 16.9 H Plt Count 194 Neut % (Auto) 84.8 H Lymph % (Auto) 7.[address] [place] % (Auto) 7.2 Eos % (Auto) 0.2 L Baso % (Auto) 0.4 Neut # (Auto) 65961 H Lymph # (Auto) 1300 [place] # (Auto) 1300 H Eos # (Auto) 0 Baso # (Auto) 100 Sodium Potassium Chloride Carbon Dioxide BUN Creatinine Estimated GFR BUN/Creatinine Ratio Glucose Calcium Total Creatine Kinase < 20 L CK-MB (CK-2) TNP CK-MB (CK-2) Rel Index TNP Troponin I 0.572 H* 0.498 H* NT-Pro-B Natriuret Pep 10/24/20 04:53 WBC RBC Hgb Hct MCV MCH MCHC RDW Plt Count Neut % (Auto) Lymph % (Auto) [place] % (Auto) Eos % (Auto) Baso % (Auto) Neut # (Auto) Lymph # (Auto) [place] # (Auto) Eos # (Auto) Baso # (Auto) Sodium 138 Potassium 3.4 Chloride 106 Carbon Dioxide 27 BUN 59 H Creatinine 1.66 H Estimated GFR 29.3 L BUN/Creatinine Ratio 35.5 H Glucose 54 L Calcium 8.6 Total Creatine Kinase CK-MB (CK-2) CK-MB (CK-2) Rel Index Troponin I NT-Pro-B Natriuret Pep 8450 H [facility] Medical History CHF (congestive heart failure) HTN (hypertension) Hypoglycemia Palpitations Paroxysmal atrial fibrillation Stable angina Surgical History No pertinent past surgical history Family History Family/Other Diabetes mellitus Father Loud snoring Hypertension Heart disease Mother Hypertension Heart disease Family/Other Heart disease Hypertension Social History household members: children Smoking Status: Never smoker alcohol intake: current Assessment & Plan Assessment & Plan narrative: Acute respiratory failure. Patient with acute respiratory failure consistent with a combination of pneumonia and exacerbation of underlying congestive heart failure. Her respiratory rate oxygen level is much improved today. With treatment of antibiotics on Lasix 6. She is currently not on oxygen. Pneumonia patient being treated as community-acquired pneumonia with Rocephin and Zithromax. She is afebrile. White blood cell count is improved. Blood pressures are stable overnight. We will continue with current antibiotic dose. Looks like she was just placed on ceftriaxone I will readmit azithromycin to her medication list. Continue to follow clinically. Respiratory rate of 40 with an oxygen level of 89%. Type 2 myocardial infarction. Patient with normal EKG. Cardiology was consulted. Recommended repeat echocardiogram. Cardiac enzymes are significantly elevated but troponins are trending down. Also potentially elevated due to her increased renal function. No significant signs or symptoms of increasing cardiac decompensation. Patient with no chest pain. Atrial fibrillation pulse rate is well controlled. On anticoagulation. Will continue her anti coagulation as well as her amiodarone. Blood pressure pulse stable. Acute systolic congestive heart failure. Continue with diuresis. Patient will be continued on IV Lasix and go slow due to her underlying infection. Monitor closely for electrolytes. Chronic renal failure stable at this point. BUN creatinine and electrolytes will be continue to monitor at this point. Diabetes type 2. Receiving insulin coverage. Patient's blood sugars look good. Anemia. Probably due to chronic disease. As well as fluid overload. Hemoglobin hematocrit mildly decreased this morning. Continue to monitor will all dropping. Would consider transfusing with hemoglobin less than 8. Code status full code. Disposition plan. Continue with current treatment plan. Of IV antibiotics IV diuresis. Monitor closely white blood cell count kidney function and anemia.
[2020-10-24] MEDS: NITROGLYCERIN 0.4 MG SL TAB SL ×2 (10:31→10:41)
--- NOTE | 2020-10-24 11:03 | PC.NURSE ---
1015 Pt reports chest pain/pressure to center of chest area. States it came on very suddenly but has not gone away. Rates pressure at 4/10 denies nausea, dizziness, or numbness. VS checked. O2 2L placed on Pt. Gave nitro at 1031-vs 145/69 hr 71 O2 91% RA. Pain was not resolved and in fact increased by 1 point. Gave a second nitro tab at 1042 and after approx 5 minutes the Pt reported no pain or chest pressure. Pt now resting comfortably and denies needs at this time.
[2020-10-24] MEDS: DOXYCYCLINE HYCLATE 100 MG TABLET PO ×2 (11:33→20:10)
--- NOTE | 2020-10-24 13:39 | CM.DPNOTE ---
DCP: continued. Spoke with Dr. Fair this morning re ? HH. He agreed with same and has completed the Face/Face document. Will fax this and F/F to [facility] as well as RN orders. A d/c is not planned for today per Dr. Fair.
[2020-10-24] MEDS: INSULIN LISPRO 100 UNIT/ML 3ML VIAL SUBCUT ×2 (17:04→20:09)
[2020-10-24] MEDS: INSULIN GLARGINE 100 UNIT/ML 3ML PEN 20 UNIT SUBCUT (20:08)
[2020-10-24] MEDS: ATORVASTATIN 20 MG TABLET 10 MG PO (20:10)
--- NOTE | 2020-10-24 21:37 | PC.NURSE ---
Per patient request, used 8 units fast acting insulin at dinner and at bedtime and used 15 units of long acting insulin at bedtime.
[2020-10-25] VITALS (7 sets, daily range): BP systolic 140–155; BP diastolic 54–71; PULSE 72–88; RESP 16–20; TEMP 36.7–37.3; O2SAT 89–97
--- NOTE | 2020-10-25 02:28 | PC.NURSE ---
Addendum entered by Gale Somers R.N. 10/25/20 06:41: Patient had home CPAP on for several hours during the night with O2 sats being in the mid to upper 90's. Now this morning has CPAP off and sats dropping below 88% so had to place her back on oxygen and have titrated her up to 2L/min per NC to get sats > 88%. Currently at 89%. Original Note: Patient is alert and oriented. Breath sounds with fine crackles in bilateral bases; RA sat 93%. Does states she feels a little SOB when up to BSC. HRR with murmur; telemetry reading was SR. Denied nausea. BT present and passing flatus. Denied dysuria, frequency or urgency with urination. Is able to move self in bed and gets up to BSC with SBA and no assistive device. Bruising of all extremities noted. Coccyx/buttocks reddened but blanchable; patient encouraged to lie on sides when in bed. Allevyn dressing to left anterior lechuga is CDI. 2+ bilateral LE edema left > right. Denied pain. CBG at time of assessment was 94 and provided snack and when rechecked later was down to 60 so provided additional snack and then did improve to 135 at last check. Fall risk score is moderate; bed alarm is activated although patient calls appropriately for assistance.
[2020-10-25 05:32] LABS: Alanine Aminotransferase 16 IU/L (<35); Albumin 2.8 g/dL (3.5-5.0); Alkaline Phosphatase 61 U/L (38-126); Aspartate Aminotransferase 24 IU/L (14-36); BUN Creatinine Ratio 32.2 (6-22); Bilirubin Total 0.4 mg/dL (0.2-1.3); Blood Urea Nitrogen 58 mg/dL (7-17); Calcium 8.6 mg/dL (8.4-10.2); Carbon Dioxide 27 mmol/L (22-32); Chloride 106 mmol/L (98-107); Estimated Glomerular Filt Rate 26.7 mL/min (>60); Globulin 2.9 g/dL (1.7-4.1); Glucose 75 mg/dL (80-110); HEMOLYSIS < 15 (0-50); Potassium 3.8 mmol/L (3.4-5.1); Sodium 137 mmol/L (137-145); Total Protein 5.7 g/dL (6.3-8.2)
[2020-10-25 05:35] LABS: Add Manual Diff / Slide Review NO; Basophils Absolute Auto 0 /uL (0-100); Eosinophils Absolute Auto 200 /uL (0-450); Eosinophils Percent Auto 1.1 % (2-4); Hematocrit 25.7 % (36-46); Hemoglobin 8.3 g/dL (12.0-16.0); Lymphocytes Absolute Auto 900 /uL (1100-4500); Lymphocytes Percent Auto 5.9 % (25-40); Mean Corpuscular HGB Conc 32.4 % (30-36); Mean Corpuscular Hemoglobin 26.6 PG (26-34); Mean Corpuscular Volume 82.2 fL (80-100); Monocytes Absolute Auto 1000 /uL (0-900); Monocytes Percent Auto 6.5 % (3-14); Neutrophils Absolute Auto 13600 /uL (1500-7000); Neutrophils Percent Auto 86.5 % (50-75); Platelet Count 183 X10^3/uL (150-400); Red Blood Cell Count 3.12 X10^6/uL (4.0-5.2); Red Cell Distribution Width 16.9 % (11.6-14.8); White Blood Cell Count 15.7 X10^3/uL (4.5-11.0)
[2020-10-25] MEDS: LEVOTHYROXINE 125 MCG TABLET PO (05:53)
[2020-10-25] MEDS: FUROSEMIDE 40 MG/4 ML VIAL IV (08:33)
[2020-10-25] MEDS: RIVAROXABAN 10 MG TABLET 15 MG PO (08:34)
[2020-10-25] MEDS: DOXYCYCLINE HYCLATE 100 MG TABLET PO ×2 (08:34→20:42)
[2020-10-25] MEDS: predniSONE 20 MG TABLET PO (08:34)
[2020-10-25] MEDS: AMIODARONE 200 MG TABLET 400 MG PO ×2 (08:34→20:42)
[2020-10-25] MEDS: POTASSIUM CHLORIDE 20 MEQ TAB PO (08:34)
[2020-10-25] MEDS: EZETIMIBE 10 MG TABLET PO (08:35)
[2020-10-25] MEDS: AMLODIPINE 5 MG TABLET 10 MG PO (08:35)
[2020-10-25] MEDS: allopurinoL 100 MG TABLET 150 MG PO (08:35)
[2020-10-25] MEDS: SODIUM CHLORIDE 0.9% FLUSH 10 ML IV ×2 (08:36→21:00)
[2020-10-25] MEDS: cefTRIAXone 2,000 MG in SODIUM CHLORIDE 0.9% 100 ML 200 ML IV (08:43)
[2020-10-25] MEDS: INSULIN GLARGINE 100 UNIT/ML 3ML PEN 30 UNIT SUBCUT (09:27)
[2020-10-25] MEDS: INSULIN LISPRO 100 UNIT/ML 3ML VIAL SUBCUT ×3 (09:31→20:41)
--- NOTE | 2020-10-25 11:36 | P.PN_ITS ---
Subjective Subjective Date Patient Seen: 10/25/20 Time Patient Seen: 11:36 Interval history: Patient seen and evaluated this morning. She sitting up on the bed she says it feels good to sit up. She still complaining of shortness of breath especially when she eats. She is on oxygen now. Patient says she feels like she could get up and walk. She has some lower extremity edema. She is eating okay. Blood sugars have been stable. She says she has a little bit constipated in generally MiraLax works well for her for that. We discussed her laboratory tests her x-ray her blood work in the current medications that she is on. Exam Vital Signs (past 8 hours): - 10/25/20 05:00 10/25/20 06:42 Temperature 98.9 F Pulse Rate 88 Respiratory Rate 20 Blood Pressure 155/67 H Pulse Oximetry 91 89 L Oxygen Delivery Method Room Air Oxygen Flow Rate 2 Narrative Exam Narrative: Gen.: Alert no apparent distress HEENT: Pupils equal round and reactive or mucosa is moist neck is supple Cardio: S1-S2 regular rate and rhythm systolic murmur present Respiratory: Lungs normal respiratory effort. Some crackles and wheezes at lung bases. Abdomen: Soft nontender no rebound or guarding Extremities: Lower extremity edema Neurologic: Generalized weakness cranial nerves are intact Objective Labs Result Diagrams: 10/26/20 05:12 10/26/20 05:12 Labs: Laboratory Results - last 24 hr 10/24/20 10/25/20 10/25/20 15:31 05:09 05:09 WBC 15.7 H RBC 3.12 L Hgb 8.3 L Hct 25.7 L MCV 82.2 MCH 26.6 MCHC 32.4 RDW 16.9 H Plt Count 183 Neut % (Auto) 86.5 H Lymph % (Auto) 5.9 L [place] % (Auto) 6.5 Eos % (Auto) 1.1 L Baso % (Auto) 0.0 Neut # (Auto) 57428 H Lymph # (Auto) 900 L [place] # (Auto) 1000 H Eos # (Auto) 200 Baso # (Auto) 0 Sodium 137 Potassium 3.8 Chloride 106 Carbon Dioxide 27 BUN 58 H Creatinine 1.80 H Estimated GFR 26.7 L BUN/Creatinine Ratio 32.2 H Glucose 75 L Calcium 8.6 Total Bilirubin 0.4 AST 24 ALT 16 Alkaline Phosphatase 61 Troponin I 0.350 H* Total Protein 5.7 L Albumin 2.8 L Globulin 2.9 Albumin/Globulin Ratio 1.0 PFSH Medical History CHF (congestive heart failure) HTN (hypertension) Hypoglycemia Palpitations Paroxysmal atrial fibrillation Stable angina Surgical History No pertinent past surgical history Family History Family/Other Diabetes mellitus Father Loud snoring Hypertension Heart disease Mother Hypertension Heart disease Family/Other Heart disease Hypertension Social History household members: children Smoking Status: Never smoker alcohol intake: current Assessment & Plan Assessment & Plan narrative: Acute respiratory failure. Patient with acute respiratory failure consistent with a combination of pneumonia and exacerbation of underlying congestive heart failure. Patient is now back on oxygen saturating well. No significant signs of acute respiratory decompensation respiratory rate is normal she gets short of breath with eating. Continue with IV antibiotics. Hold off on diuresis as her BUN and creatinine is increasing. Repeat chest x-ray tomorrow morning for recheck white blood cell count afebrile. Blood pressures are stable. Pneumonia patient being treated as community-acquired pneumonia with Rocephin and doxycycline Zithromax was not given due to prolongation of QT with amiodarone. Not requiring inhalers. Lungs actually sound okay today. She is on oxygen. Recheck x-ray tomorrow morning she is afebrile Type 2 myocardial infarction. Patient with normal EKG. Had an episode of chest pain yesterday midmorning. EKG was normal. Cardiac enzymes decreased. Think w as more esophageal than cardiac in nature. Cardiac enzymes trending down. Given a dose of nitroglycerin yesterday without significant elevation of cardiac enzymes. Atrial fibrillation pulse rate is well controlled. On anticoagulation. Will continue her anti coagulation as well as her amiodarone. Blood pressure pulse stable. Heart rate is looking good today. Pulse is stable. Acute systolic congestive heart failure. Patient getting IV Lasix. Due to her elevation of her BUN and creatinine. Will hold off on further diuresis at this point and re-evaluate kidney function and blood counts tomorrow. Chronic renal failure stable at this point. BUN creatinine mildly increased over yesterday hold further doses of Lasix. Diabetes type 2. Receiving insulin coverage. Blood sugar stable continue with current insulin dosing. Anemia. Probably due to chronic disease. Hemoglobin hematocrit is stable at this point. Consider blood transfusion if patient remains symptomatic with weakness and shortness of breath. May require 2 units of packed red blood cells Code status full code. Disposition plan. Continue with antibiotics. Hold diuretics due to increasing BUN and creatinine. Consider blood transfusion to help with the patient's symptomatic weakness hypoxia. Patient will work with PT OT today. Repeat chest x-ray tomorrow.
[2020-10-25] MEDS: polyethylene glycoL 3350 17 GM POWD.PACK PO (12:42)
[2020-10-25] MEDS: INSULIN GLARGINE 100 UNIT/ML 3ML PEN 20 UNIT SUBCUT (20:41)
[2020-10-25] MEDS: ATORVASTATIN 20 MG TABLET 10 MG PO (20:42)
[2020-10-26] VITALS (18 sets, daily range): BP systolic 131–160; BP diastolic 48–75; PULSE 64–86; RESP 14–28; TEMP 36.5–37.1; O2SAT 90–97
[2020-10-26 05:30] LABS: Add Manual Diff / Slide Review NO; Basophils Absolute Auto 100 /uL (0-100); Basophils Percent Auto 0.8 % (0-2); Eosinophils Absolute Auto 200 /uL (0-450); Hemoglobin 7.9 g/dL (12.0-16.0); Lymphocytes Absolute Auto 700 /uL (1100-4500); Lymphocytes Percent Auto 4.9 % (25-40); Mean Corpuscular Hemoglobin 26.3 PG (26-34); Monocytes Absolute Auto 1000 /uL (0-900); Monocytes Percent Auto 6.7 % (3-14); Neutrophils Absolute Auto 13100 /uL (1500-7000); Neutrophils Percent Auto 86.6 % (50-75); Platelet Count 188 X10^3/uL (150-400); Red Blood Cell Count 3.01 X10^6/uL (4.0-5.2); Red Cell Distribution Width 16.6 % (11.6-14.8); White Blood Cell Count 15.1 X10^3/uL (4.5-11.0)
[2020-10-26] MEDS: LEVOTHYROXINE 125 MCG TABLET PO (05:33)
[2020-10-26 05:38] LABS: Alanine Aminotransferase 15 IU/L (<35); Albumin 2.8 g/dL (3.5-5.0); Alkaline Phosphatase 60 U/L (38-126); Aspartate Aminotransferase 25 IU/L (14-36); Bilirubin Total 0.4 mg/dL (0.2-1.3); Blood Urea Nitrogen 53 mg/dL (7-17); Calcium 8.5 mg/dL (8.4-10.2); Carbon Dioxide 28 mmol/L (22-32); Chloride 107 mmol/L (98-107); Estimated Glomerular Filt Rate 28.3 mL/min (>60); Globulin 2.7 g/dL (1.7-4.1); Glucose 110 mg/dL (80-110); HEMOLYSIS < 15 (0-50); Potassium 3.9 mmol/L (3.4-5.1); Sodium 138 mmol/L (137-145); Total Protein 5.5 g/dL (6.3-8.2)
[2020-10-26 05:40] LABS: Hematocrit 24.7 % (36-46)
--- NOTE | 2020-10-26 06:20 | PC.NURSE ---
RT. notified SPO2 in 2 liters only 88%. RT placed her in 3.5 liters humidified oxygen & SPO2 90-92%. Will monitor & continue POC.
--- NOTE | 2020-10-26 07:35 | DI.RAD.S_ITS ---
PROCEDURE: XR CHEST 1V INDICATIONS: Shortness of breath pneumonia TECHNIQUE: One view of the chest was acquired. COMPARISON: [facility], CR, XR CHEST 1V, 10/23/2020, 1:26. [facility], CR, XR CHEST 1V, 10/09/2020, 9:58. FINDINGS: Surgical changes and devices: None. Lungs and pleura: Right lung base airspace opacity is decreasing. Perihilar opacity and bronchial wall thickening. No pleural effusions or pneumothorax. Mediastinum: Mediastinal contours appear unchanged. Aortic arch atherosclerotic calcifications. Heart size is normal. Bones and chest wall: No suspicious bony lesions. Overlying soft tissues appear unremarkable. IMPRESSION: Right lung base airspace opacity is mildly improved. Perihilar opacity and bronchial wall thickening. This could be seen in bronchitis or pulmonary edema. This report is concordant with the overnight preliminary interpretation. Dictated by: Dominic Muller M.D. on 10/26/2020 at 7:58 Approved by: Dominic Muller M.D. on 10/26/2020 at 8:00
[2020-10-26] MEDS: cefTRIAXone 2,000 MG in SODIUM CHLORIDE 0.9% 100 ML 200 ML IV (08:20)
[2020-10-26] MEDS: polyethylene glycoL 3350 17 GM POWD.PACK PO (08:21)
[2020-10-26] MEDS: AMLODIPINE 5 MG TABLET 10 MG PO (08:21)
[2020-10-26] MEDS: EZETIMIBE 10 MG TABLET PO (08:21)
[2020-10-26] MEDS: predniSONE 20 MG TABLET PO (08:21)
[2020-10-26] MEDS: allopurinoL 100 MG TABLET 150 MG PO (08:22)
[2020-10-26] MEDS: RIVAROXABAN 10 MG TABLET 15 MG PO (08:22)
[2020-10-26] MEDS: POTASSIUM CHLORIDE 20 MEQ TAB PO (08:22)
[2020-10-26] MEDS: AMIODARONE 200 MG TABLET 400 MG PO ×2 (08:22→20:44)
[2020-10-26] MEDS: DOXYCYCLINE HYCLATE 100 MG TABLET PO ×2 (08:22→20:44)
[2020-10-26] MEDS: SODIUM CHLORIDE 0.9% FLUSH 10 ML IV ×2 (08:23→20:44)
[2020-10-26] MEDS: INSULIN GLARGINE 100 UNIT/ML 3ML PEN 30 UNIT SUBCUT (08:26)
--- NOTE | 2020-10-26 08:38 | PM.PN.1 ---
Subjective Subjective Date Patient Seen: 10/26/20 Time Patient Seen: 08:39 Interval history: Patient is seen in follow-up of respiratory failure pneumonia. Congestive heart failure. Overall patient not feeling a lot better today. Apparently her CPAP mask is not working and she is having difficult at night. Has been desatting. During the day she is doing better but no other significant change. She was discontinued on her Lasix yesterday because of increasing renal failure but no other change. She still feels like she has some Exam Vital Signs (past 8 hours): - 10/26/20 05:00 10/26/20 06:44 10/26/20 08:00 Temperature 98.7 F 98.4 F Pulse Rate 76 70 Respiratory Rate 21 19 Blood Pressure 142/57 H 159/54 H Pulse Oximetry 90 L 95 95 10/26/20 08:37 Temperature Pulse Rate Respiratory Rate Blood Pressure Pulse Oximetry 91 Oxygen Delivery Method Room Air Oxygen Flow Rate 3 Narrative Exam Narrative: Alert female in no acute distress. Weight is down 1 kilos since admission Fatigued in appearance. HEENT exam is unremarkable. Neck supple without adenopathy. No definitive JVD. Lungs slight decreased left base but otherwise no change. No significant crackles. Extremities without significant edema on the right slight increase on the left. Open wound still present Objective Labs Result Diagrams: 10/26/20 05:12 10/26/20 05:12 Labs: Laboratory Results - last 24 hr 10/26/20 10/26/20 10/26/20 05:12 05:12 05:12 WBC 15.1 H RBC 3.01 L Hgb 7.9 L Hct 24.7 L MCV 82.0 MCH 26.3 MCHC 32.0 RDW 16.6 H Plt Count 188 Neut % (Auto) 86.6 H Lymph % (Auto) 4.9 L [place] % (Auto) 6.7 Eos % (Auto) 1.0 L Baso % (Auto) 0.8 Neut # (Auto) 76861 H Lymph # (Auto) 700 L [place] # (Auto) 1000 H Eos # (Auto) 200 Baso # (Auto) 100 Sodium 138 Potassium 3.9 Chloride 107 Carbon Dioxide 28 BUN 53 H Creatinine 1.71 H Estimated GFR 28.3 L BUN/Creatinine Ratio 31.0 H Glucose 110 Calcium 8.5 Total Bilirubin 0.4 AST 25 ALT 15 Alkaline Phosphatase 60 Total Protein 5.5 L Albumin 2.8 L Globulin 2.7 Albumin/Globulin Ratio 1.0 Blood Type O Positive Antibody Screen Negative Crossmatch See Detail [facility] Medical History CHF (congestive heart failure) HTN (hypertension) Hypoglycemia Palpitations Paroxysmal atrial fibrillation Stable angina Surgical History No pertinent past surgical history Family History Family/Other Diabetes mellitus Father Loud snoring Hypertension Heart disease Mother Hypertension Heart disease Family/Other Heart disease Hypertension Social History household members: children Smoking Status: Never smoker alcohol intake: current Assessment & Plan Assessment & Plan narrative: Anemia. Probably secondary to chronic disease but will check guaiacs. She does not appear to be bleeding. Combination of fluid overload but due to the fact that she is having difficulty with O2 sats and is low and has congestive heart failure will give blood today. 1 unit and see how she does. Hopefully this will improve her oxygen Acute respiratory acute respiratory failure. Patient's O2 requirement was up today but I wonder how much of this is at nighttime with her CPAP. Will get have respiratory therapy evaluate. Her chest x-ray looks slightly better although not much still could be secondary to fluid overload. Issue is pushing her diuresis with her renal failure will decide to see what happens as we increased. Will check BNP tomorrow and follow from there. Will continue with O2 and treatment of her pneumonia certainly her white count is slightly down. No other change.Maybe switch to orals tomorrow for p.o. antibiotics. Pneumonia. Community-acquired. Rocephin and doxycycline at this time. Will continue white count slightly down. Hoping to switch to orals tomorrow. Chest x-ray maybe slightly improved. Type 2 myocardial infarction. Had been trending downward. No evidence of significant change no evidence of abnormality on EKG really no symptoms will follow from there. Congestive heart failure. Acute systolic. Echo does show some decrease in left ventricular function and hypokinesis. Given the fact that she did have some troponin changes spots will this is secondary to some type of ischemic issue will need to discuss with digital press operator. Hoping they will see her today. Chronic renal failure slightly increasing maybe slightly improved today but will be giving Lasix will recheck in a.m.. Is going to be a walk but it between her need for Lasix and her kidney failure hoping to talk to her cardiology today. Type 2 diabetes. Stable. Slight decrease in insulin today will watch. Sleep apnea. Will try to adjust mass. Hopefully we can get something set up. Disposition. Hopefully by Monday will be discharged home will see how things go. Unclear at this time. Continue PT OT
--- NOTE | 2020-10-26 09:00 | PT-IP ANOTE ---
Attempted physical therapy eval. Her current O2 sats 89% resting in bed. Respiratory is working on needed Oxygen level. Nursing is about to start blood transfusion. Pt wants to hold therapy until this afternoon. Will check back later today.
[2020-10-26] MEDS: FUROSEMIDE 40 MG/4 ML VIAL IV ×2 (09:42→14:10)
--- NOTE | 2020-10-26 09:58 | PC.NURSE ---
Addendum entered by Zee Martinez R.N. 10/26/20 12:41: Patient states shes breathing better sats on 4L 95-96%, good urine output, no c/o chest pain. Addendum entered by Zee Martinez R.N. 10/26/20 11:16: Dr Mhaan called and informed of patients increased shortness of breath, orders received. Alejandro placed, 375cc clear yellow urine returned.O2 increased to 6L HFNC sats 95-96%. EKG done. Unit of RBC's hung as ordered. Original Note: Patient reports feeling short of breath, sats on 4L 85-88%, increased O2 to 5L sats 89-90%, patients up to BSC to have a BM. Patient states she feels better sitting up but refusing to sit in the chair at this time.Lungs with fine crackles in bases. 40mg IV Lasix given as ordered and RT called.
[2020-10-26 11:02] LABS: Creatine Kinase 39 U/L (30-135)
[2020-10-26 11:27] LABS: Troponin I 0.267 ng/mL (0.01-0.034)
[2020-10-26 12:18] LABS: Creatine Kinase 38 U/L (30-135)
[2020-10-26] MEDS: INSULIN LISPRO 100 UNIT/ML 3ML VIAL SUBCUT ×2 (12:21→20:53)
[2020-10-26 12:26] LABS: Troponin I 0.241 ng/mL (0.01-0.034)
--- NOTE | 2020-10-26 13:21 | P.PN_ITS ---
Subjective Subjective Date Patient Seen: 10/26/20 Time Patient Seen: 13:22 Interval history: called to see patient for increasing shortness of breath. Mild increase in O2 requirement. EKG shows no changes. Improving now. No chest pain or other symptoms. Exam Vital Signs (past 8 hours): - 10/26/20 06:44 10/26/20 08:00 10/26/20 08:37 Temperature 98.4 F Pulse Rate 70 Respiratory Rate 19 Blood Pressure 159/54 H Pulse Oximetry 95 95 91 10/26/20 10:26 10/26/20 10:50 10/26/20 11:06 Temperature 98.1 F 98.0 F Pulse Rate 86 80 Respiratory Rate 28 H 26 H 26 H Blood Pressure 150/67 H 160/63 H Pulse Oximetry 90 L 10/26/20 11:18 10/26/20 12:00 10/26/20 12:11 Temperature 98.4 F Pulse Rate 78 Respiratory Rate 20 Blood Pressure 156/75 H Pulse Oximetry 95 97 97 Oxygen Delivery Method Room Air Oxygen Flow Rate 4 Narrative Exam Narrative: Alert female in no acute distress. Lungs with basilar crackles actually up into the mid lung [place]. No respiratory distress. No retractions. Heart regular rate and rhythm with an unchanged murmur. Objective Labs Result Diagrams: 10/26/20 05:12 10/26/20 05:12 Labs: Laboratory Results - last 24 hr 10/26/20 10/26/20 10/26/20 05:12 05:12 05:12 WBC 15.1 H RBC 3.01 L Hgb 7.9 L Hct 24.7 L MCV 82.0 MCH 26.3 MCHC 32.0 RDW 16.6 H Plt Count 188 Neut % (Auto) 86.6 H Lymph % (Auto) 4.9 L [place] % (Auto) 6.7 Eos % (Auto) 1.0 L Baso % (Auto) 0.8 Neut # (Auto) 24738 H Lymph # (Auto) 700 L [place] # (Auto) 1000 H Eos # (Auto) 200 Baso # (Auto) 100 Sodium 138 Potassium 3.9 Chloride 107 Carbon Dioxide 28 BUN 53 H Creatinine 1.71 H Estimated GFR 28.3 L BUN/Creatinine Ratio 31.0 H Glucose 110 Calcium 8.5 Total Bilirubin 0.4 AST 25 ALT 15 Alkaline Phosphatase 60 Total Creatine Kinase CK-MB (CK-2) CK-MB (CK-2) Rel Index Troponin I Total Protein 5.5 L Albumin 2.8 L Globulin 2.7 Albumin/Globulin Ratio 1.0 Blood Type O Positive Antibody Screen Negative Crossmatch See Detail 10/26/20 10/26/20 05:12 11:45 WBC RBC Hgb Hct MCV MCH MCHC RDW Plt Count Neut % (Auto) Lymph % (Auto) [place] % (Auto) Eos % (Auto) Baso % (Auto) Neut # (Auto) Lymph # (Auto) [place] # (Auto) Eos # (Auto) Baso # (Auto) Sodium Potassium Chloride Carbon Dioxide BUN Creatinine Estimated GFR BUN/Creatinine Ratio Glucose Calcium Total Bilirubin AST ALT Alkaline Phosphatase Total Creatine Kinase 39 38 CK-MB (CK-2) TNP TNP CK-MB (CK-2) Rel Index TNP TNP Troponin I 0.267 H* 0.241 H* Total Protein Albumin Globulin Albumin/Globulin Ratio Blood Type Antibody Screen Crossmatch [facility] Medical History CHF (congestive heart failure) HTN (hypertension) Hypoglycemia Palpitations Paroxysmal atrial fibrillation Stable angina Surgical History No pertinent past surgical history Family History Family/Other Diabetes mellitus Father Loud snoring Hypertension Heart disease Mother Hypertension Heart disease Family/Other Heart disease Hypertension Social History household members: children Smoking Status: Never smoker alcohol intake: current Assessment & Plan Assessment & Plan narrative: increasing hypoxia. PN likely with patient on ant icoagulation. Pneumonia seems to be stable. Id improving already I suspect this is secondary to fluid. Troponin is decreasing and EKGs unchanged I think this is not an ischemic event although I do believe it is cardiac. 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 No other changes.
--- NOTE | 2020-10-26 16:06 | PT.IIE ---
Current Diagnoses Acute respiratory failure with hypoxia (10/23/20) Medical History (Last Reviewed 10/23/20 @ 13:23 by Benigno Mahan MD) CHF (congestive heart failure) HTN (hypertension) Hypoglycemia Palpitations Paroxysmal atrial fibrillation Stable angina Physical Therapy Inpatient Evaluation/Re-Eval M1 PT/OT-IP Prior Functional Status Start: 10/26/20 08:30 Freq: NEEDED Status: Active Protocol: Document 10/26/20 16:06 DLM (Rec: 10/26/20 17:44 DL [id number]) Medical Review Prior Functional Status Medical History Reviewed Yes Diet/Fluid Consistency Regular Communication WNL Mobility and Gait Independent without device Activities of Daily Living and IADL's Independent, does yard work Social History Household Members children Living Arrangements House Number of Floors (Floors) One Floor Number of Stairs To Enter/Railing? 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 Retired M2 PT-IP Current Condition Start: 10/26/20 08:30 Freq: NEEDED Status: Active Protocol: Document 10/26/20 16:06 DLM (Rec: 10/26/20 17:44 DL [id number]) Physical Therapy Current Condition Current Condition Evaluation Date 10/26/20 Treatment Diagnosis CHF/PNA, impaired gait and mobility Onset Date 10/23/20 Precautions Other Precautions anemic, had blood transfusion 10/26/20 monitor oxygen needs M3 PT-IP Subjective Start: 10/26/20 08:30 Freq: NEEDED Status: Active Protocol: Document 10/26/20 16:06 DLM (Rec: 10/26/20 17:44 DL [id number]) Subjective Physical Therapy Visit Type Type Initial Evaluation Visit Start Time 15:15 Visit Stop Time 16:06 Total Visit Minutes 51 Number of BODY TECHNICIAN Visits 0 Physical Therapy Visit Comments Patient Comments She is worried about her Daughter beign able to manage her new medical issues at home Patient Goals Get stronger and return home Therapy Pain Assessment Pain When Pain Assessed During Mobility Pain Present Pain Present Pain Reported Location Generalized Intensity 4 Scale Used Numeric (0 - 10) Description Tender Pain Management Techniques Modification of Treatment M4 PT-IP Mobility and Gait Start: 10/26/20 08:30 Freq: NEEDED Status: Active Protocol: Document 10/26/20 16:06 DLM (Rec: 10/26/20 17:44 DL [id number]) PT-Bed Mobility Assessment Rolling Level of Assist Standby Assistance Supine to Sit Supine to Sit Standby Assistance,Bedrails Sit to Supine Sit to Supine Standby Assistance,Bedrails Scooting Scooting to Edge of Bed Standby Assistance PT-Transfer Assessment Sit to and From Stand Sit to and from Stand Contact Guard Assistance,Use of Upper Extremities Equipment Transfer Assistive Device Gait Belt,Front Wheeled Walker Transfers Transfer Destination Bed Transfer Technique Stand Step Pivot Transfer Ability Level of Assist Standby Assistance,Contact Guard Assistance,Use of Upper Extremities Comments Mobility Comments Sitting up edge of bed, standing at bedside Pt using 2 LPM oxygen with high flow cord, nasal cannuli Gait Assessment Gait Gait Assistance Required: Contact Guard Assist Distance (Feet) 20 Assistive Devices Assistive Device Gait Belt,Front Wheeled Walker Gait Deviations General Gait Pattern Flexed Trunk Factors Limiting Gait Function Factors Limiting Gait Function Decreased Activity Tolerance, Decreased Strength Comments Gait Comments pt describes legs feeling weak , edema left LE and UE PT-Balance Assessment Sitting Balance and Reactions Static Sitting Balance Ability Good Dynamic Sitting Balance Ability Good Standing Balance and Reactions Static Standing Balance Ability Good Dynamic Standing Balance Ability Good Device Used fWW M5 PT-IP Objective Assessments Start: 10/26/20 08:30 Freq: NEEDED Status: Active Protocol: Document 10/26/20 16:06 DL (Rec: 10/26/20 17:44 [facility] [id number]) Orientation Orientation/Cognition Level of Alertness Alert Orientation Name,Age,Birthday,Month,Date, Year,Day of Week,Place, Situation Language Function Ability No Deficits Noted Safety Awareness Understands Safety Issues Memory Description No Deficits Noted Gross Range of Motion Upper Extremity ROM Assessment Within Functional Limits Lower Extremity ROM Assessment Within Functional Limits Impairments pain with left ankle ROM associated with her edema Strength Upper Extremity Strength Assessment Bilaterally Impaired Lower Extremity Strength Assessment Bilaterally Impaired Comments Strength Comments generalized functional weakness, grossly 4/5 Coordination Assessment Gross Coordination Gross Coordination WNL Sensation Assessment Sensation Sensation Description Pain Comments Sensation Comments hypersensative and tender to touch everywhere Muscle Tone Muscle Tone WNL Yes M6 PT-IP Treatment Start: 10/26/20 08:30 Freq: NEEDED Status: Active Protocol: Document 10/26/20 16:06 DL (Rec: 10/26/20 17:44 [facility] [id number]) Physical Therapy Treatment Exercises Exercises Ankle Pumps,Heel Slides, Shoulder Flexion,Elbow Flexion /Extension,Wrist ROM,Hand ROM Education Education Provided Safety Other Treatments Other Treatment Performed performed left UE exercise with UE elevated to assist with edema management, assiste pt to remove her medical alert bracelet and placed it in her belongings bag since it was painful with her current left UE edema M7 PT-IP Assessment and Plan Start: 10/26/20 08:30 Freq: NEEDED Status: Active Protocol: Document 10/26/20 16:06 DLM (Rec: 10/26/20 17:44 DLM [id number]) PT Summary Assessment and Plan Potential Rehabilitation Potential Good Status of Condition at Evaluation Evolving Summary Impairments Pain,Strength,Bed Mobility, Transfers,Gait,Activity Tolerance Assessment Summary Jackie is alert and resting in bed. She reports feeling better since getting the blood transfusion. She was able to get up and ambulate in her room with the fWW. She has mild shortness of breath with activity on 2 LPM oxygen but oxygen sats are greater than 90%. UE and LE exercises started to assist with edema management as well as strengthening. Her Daughter is present today. Answered their questions about discharge options. Pt would prefer to go home but realizes she has to get stronger. Pt and her Daughter are discussing home health options vs SNF rehab. Will work towards goal of home with her Daughter and home health services. Her activity tolerance will need to continue to increase to be safe to return home. Goals Bed Mobility Goal Independent Transfer Goal Independent,Front Wheeled Walker Gait Goal Standby Assistance,Front Wheel Walker Gait Distance 150 feet Other Goals up and down 7 steps with rail and SBA Days to Meet Goals 5 Frequency of Treatment Frequency Of Treatment Twice a Day Treatment Plan Physical Therapy Treatment Plan Bed Mobility Training,Transfer Training,Gait Training, Therapeutic Exercise,Balance Retraining,Discharge Planning, Neuromuscular Re-ed Recommendations To Nursing Amount of Assist Needed Standby Assistance Discharge Recommendations PT Discharge Recommendations Home with Assistance,Home Health Other Discharge Recommendations continue to assess for discharge, will need SNF if she does not continue to progress well, needs to be able to do 7 steps to go home Transportation Needs at Discharge Private Vehicle
[2020-10-26] MEDS: ATORVASTATIN 20 MG TABLET 10 MG PO (20:44)
[2020-10-26] MEDS: INSULIN GLARGINE 100 UNIT/ML 3ML PEN 20 UNIT SUBCUT (20:47)
[2020-10-27] VITALS (10 sets, daily range): BP systolic 141–152; BP diastolic 47–91; PULSE 68–81; RESP 15–21; TEMP 36.4–37.2; O2SAT 92–98
--- NOTE | 2020-10-27 00:52 | PC.NURSE ---
Pt sleeping soundly using CPAP With 2 liters oxygen. SPO2 100 % turned 02 down to 1 liter % SPO2 97%. Did not sleep well last night, will let her sleep & assess with she wakes up. Checked her blood glucose via her own glucose monitor it was 108. Will continue POC & monitor.
[2020-10-27 04:47] LABS: Add Manual Diff / Slide Review NO; Basophils Absolute Auto 100 /uL (0-100); Basophils Percent Auto 0.4 % (0-2); Eosinophils Absolute Auto 200 /uL (0-450); Eosinophils Percent Auto 1.3 % (2-4); Hematocrit 28.6 % (36-46); Hemoglobin 9.4 g/dL (12.0-16.0); Lymphocytes Absolute Auto 700 /uL (1100-4500); Lymphocytes Percent Auto 4.7 % (25-40); Mean Corpuscular HGB Conc 32.7 % (30-36); Mean Corpuscular Hemoglobin 27.1 PG (26-34); Mean Corpuscular Volume 82.7 fL (80-100); Monocytes Absolute Auto 800 /uL (0-900); Monocytes Percent Auto 5.5 % (3-14); Neutrophils Absolute Auto 12100 /uL (1500-7000); Neutrophils Percent Auto 88.1 % (50-75); Platelet Count 181 X10^3/uL (150-400); Red Blood Cell Count 3.46 X10^6/uL (4.0-5.2); Red Cell Distribution Width 16.6 % (11.6-14.8); White Blood Cell Count 13.8 X10^3/uL (4.5-11.0)
[2020-10-27 04:54] LABS: BUN Creatinine Ratio 29.8 (6-22); Blood Urea Nitrogen 57 mg/dL (7-17); Calcium 8.6 mg/dL (8.4-10.2); Carbon Dioxide 27 mmol/L (22-32); Chloride 106 mmol/L (98-107); Estimated Glomerular Filt Rate 24.9 mL/min (>60); Glucose 106 mg/dL (80-110); HEMOLYSIS < 15 (0-50); Potassium 4.2 mmol/L (3.4-5.1); Sodium 138 mmol/L (137-145)
[2020-10-27 05:04] LABS: NT-proBNP (BNP-Adult 18+) 8340 pg/mL (<450)
[2020-10-27] MEDS: LEVOTHYROXINE 125 MCG TABLET PO (05:27)
[2020-10-27] MEDS: allopurinoL 100 MG TABLET 150 MG PO (08:18)
[2020-10-27] MEDS: POTASSIUM CHLORIDE 20 MEQ TAB PO (08:18)
[2020-10-27] MEDS: DOXYCYCLINE HYCLATE 100 MG TABLET PO ×2 (08:18→21:06)
[2020-10-27] MEDS: predniSONE 20 MG TABLET PO (08:18)
[2020-10-27] MEDS: EZETIMIBE 10 MG TABLET PO (08:18)
[2020-10-27] MEDS: AMIODARONE 200 MG TABLET 400 MG PO (08:18)
[2020-10-27] MEDS: AMLODIPINE 5 MG TABLET 10 MG PO (08:19)
[2020-10-27] MEDS: INSULIN GLARGINE 100 UNIT/ML 3ML PEN 10 UNIT SUBCUT (08:19)
[2020-10-27] MEDS: SODIUM CHLORIDE 0.9% FLUSH 10 ML IV ×2 (08:20→21:35)
--- NOTE | 2020-10-27 08:31 | P.PN_ITS ---
Subjective Subjective Date Patient Seen: 10/27/20 Time Patient Seen: 08:32 Interval history: Patient seen in follow-up of congestive heart failure and pneumonia.Patient feeling better. Last night she was able to eat. Slept well last night. No chest pain. No shortness of breath. Energy level slightly better this morning. Had some Exam Vital Signs (past 8 hours): - 10/27/20 04:00 10/27/20 08:00 Temperature 97.6 F 98.9 F Pulse Rate 68 71 Respiratory Rate 20 21 Blood Pressure 152/82 H 145/72 H Pulse Oximetry 98 96 Oxygen Delivery Method Nasal Cannula Oxygen Flow Rate 1 Narrative Exam Narrative: Alert female less fatigued no acute distress. Neck supple without adenopathy lungs with basilar crackles. Heart with unchanged murmur abdomen soft positive bowel sounds nontender. Extremities wanted Objective Labs Result Diagrams: 10/27/20 04:28 10/27/20 04:28 Labs: Laboratory Results - last 24 hr 10/26/20 10/26/20 10/26/20 05:12 05:12 11:45 WBC RBC Hgb Hct MCV MCH MCHC RDW Plt Count Neut % (Auto) Lymph % (Auto) [place] % (Auto) Eos % (Auto) Baso % (Auto) Neut # (Auto) Lymph # (Auto) [place] # (Auto) Eos # (Auto) Baso # (Auto) Sodium Potassium Chloride Carbon Dioxide BUN Creatinine Estimated GFR BUN/Creatinine Ratio Glucose Calcium Total Creatine Kinase 39 38 CK-MB (CK-2) TNP TNP CK-MB (CK-2) Rel Index TNP TNP Troponin I 0.267 H* 0.241 H* NT-Pro-B Natriuret Pep Blood Type O Positive Antibody Screen Negative Crossmatch See Detail 10/27/20 10/27/20 10/27/20 04:28 04:28 04:28 WBC 13.8 H RBC 3.46 L Hgb 9.4 L Hct 28.6 L MCV 82.7 MCH 27.1 MCHC 32.7 RDW 16.6 H Plt Count 181 Neut % (Auto) 88.1 H Lymph % (Auto) 4.7 L [place] % (Auto) 5.5 Eos % (Auto) 1.3 L Baso % (Auto) 0.4 Neut # (Auto) 48718 H Lymph # (Auto) 700 L [place] # (Auto) 800 Eos # (Auto) 200 Baso # (Auto) 100 Sodium 138 Potassium 4.2 Chloride 106 Carbon Dioxide 27 BUN 57 H Creatinine 1.91 H Estimated GFR 24.9 L BUN/Creatinine Ratio 29.8 H Glucose 106 Calcium 8.6 Total Creatine Kinase CK-MB (CK-2) CK-MB (CK-2) Rel Index Troponin I NT-Pro-B Natriuret Pep 8340 H Blood Type Antibody Screen Crossmatch [facility] Medical History CHF (congestive heart failure) HTN (hypertension) Hypoglycemia Palpitations Paroxysmal atrial fibrillation Stable angina Surgical History No pertinent past surgical history Family History Family/Other Diabetes mellitus Father Loud snoring Hypertension Heart disease Mother Hypertension Heart disease Family/Other Heart disease Hypertension Social History household members: children Smoking Status: Never smoker alcohol intake: current Assessment & Plan Assessment & Plan narrative: Anemia. Patient responded to blood . Patient was guaiac positive probably blood loss anemia but will have to see. Etiology is unclear. We will need to stop her anticoagulation and re-evaluate. Patient understands recheck tomorrow. Acute renal failure. Probably secondary to diuresis. In a difficult position secondary to the fact that her cardiac status demands increase diuresis. Will decrease diuresis today re-evaluate. Certainly do not want to give her fluids a fight on after and re-evaluate a.m. hopefully trend will be reversed. Does not appear to be any significant medications that are causing this. Guaiac-positive stools. May need evaluation will see what happens after stopping her anticoagulation. Will place on GI protection. At this point I do not think at this time would be the best time to consider EGD and colonoscopy and will hold evaluation unless we have issues with more rapid loss. Will see how things go. Re-evaluate in a.m.. Acute respiratory failure. I think this is more primarily cardiac then it is pneumonia but will have to see. Much improved after diuresis yesterday are acute knee function is not doing well. We discussed dust this. At this point robotic welder is evaluating will see what they recommend. Follow from there. Congestive heart failure. Question is why is she some much worse. We thought this was a type 2 injury but question is was or other damage. Difficult position because she needs more diuresis per kidney function is not doing well. Light Lasix today rechecks kidney function tomorrow and discussed with robotic welder. Atrial fibrillation. Currently not in AFib. Continue amiodarone but discontinue anticoagulation. Due to GI bleed. Will follow. Type 2 diabetes stable. Sleep apnea stable. Code status discussed with patient today. Certainly significant risk she agrees will switch to no code. She agrees Disposition. Certainly is not going to be any time soon. Will see what robotic welder things.
[2020-10-27] MEDS: cefUROXime 250 MG TABLET 500 MG PO (09:27)
[2020-10-27] MEDS: FUROSEMIDE 20 MG/2 ML VIAL IV (09:27)
--- NOTE | 2020-10-27 09:49 | P.CONS_ITS ---
History of Present Illness Consult details Date Patient Seen: 10/27/20 Time Patient Seen: 08:15 Chief complaint: short of breath Reason for consult: CHF with worsening renal function Requesting provider: Benigno Mahan Narrative: HPI: The patient is an 85-year-old female with a history of paroxysmal atrial fibrillation, hypertension, hyperlipidemia, diabetes, and hypothyroidism with a normal myocardial perfusion imaging stress test in 2011 and a normal echocardiogram in 2013 except for mild to moderate mitral regurgitation. A stress echocardiogram at that time was felt to most likely be normal. She had an ROMIE study in 2014 was consistent with mild arterial disease in her left leg which was asymptomatic and was followed by Dr. Crum last saw her in 2015 but she subsequently failed follow-up but had a myocardial perfusion stress test in May of 2019 that showed an LAUREL of -32% without any perfusion defects and an EF of 78%. She was in sinus rhythm at that time also was admitted in March 2020 with persistent rapid atrial fibrillation and borderline elevated troponin. Her echocardiogram then this showed an EF of 50 to 60% without any focal wall motion abnormalities and had normal right ventricular size and function with APAP of 32 mm Hg and a CVP of 3 mm Hg, and mild to moderate mitral regurgitation that was unchanged and mild aortic stenosis with a peak velocity of 2.6 m/sec. She was treated with diltiazem and was discharged in sinus rhythm but presented on 05/07/2020 with recurrent rapid atrial fibrillation she presented for an outpatient stress test. She was admitted with symptoms of palpitations, dyspnea, and a borderline troponin and again was treated with diltiazem and diu resed with spontaneous conversion to sinus rhythm. Subsequent myocardial perfusion stress test showed an LAUREL +5% without any evidence of ischemia and an ejection fraction of 74% and she was discharged although readmitted on 06/03/2020 with nausea, vomiting, and weakness after she had stopped her me dications and again had rapid atrial fibrillation and a creatinine of 1.8. She was found to have a UTI and was treated with antibiotic therapy and IV fluids and diltiazem and her atenolol was resumed. Her creatinine improved but she developed hypoxia and required diuresis and was ultimately discharged in atrial fibrillation at 110 to 120 ppm with a potassium of 3.2 and a BUN of 15 and creatinine 1.5. Her TSH was 0.15. She was seen in consultation on 06/12/2020 and reported resolution of her pedal edema and improvement in her dyspnea on her current medications but remained fatigued with reduced exercise tolerance and was in atrial fibrillation at 98 ppm. She was started on Xarelto but admitted to being somewhat noncompliant. Her diltiazem, chlorthalidone, and atenolol were stopped and she was started on metoprolol and furosemide increased from 20 mg to 40 mg. A subsequent Zio mon itor showed continuous atrial fibrillation at 75 to 125 B p.m. with an average of 105 ppm and at follow-up on 07/09/2020 her heart rate was 116 in atrial fibrillation while on metoprolol to 100 mg b.i.d.. She was started on amiodarone with a loading dose and encouraged to obtain a sleep study and reduce her nightly scotch consumption of 2 oz. she was subsequently admitted on 07/14/20 with progressive nausea and again had been non compliant with her furosemide and metoprolol. She again spontaneously converted to sinus rhythm and her amiodarone was stopped. Her labs at that time showed a BUN of 21 with a creatinine of 1.4 and a potassium of 3.3. At follow-up on 07/27/2020 she felt improved was in sinus rhythm at 77 bpm and her amiodarone was restarted at 200 mg daily with instructions to restart her metoprolol if her heart rate increased and to obtain a sleep study which subsequently confirmed his severe obstructive sleep apnea. Follow-up on 09/11/2020, she was in sinus rhythm at 67 beats per minute and her amlodipine was increased from 5 mg to 10 mg because of hypertension. She was admitted SP on 10/09/2020 after presenting to [facility] with worsening dyspnea after apparently changing from furosemide to torsemide. She was in sinus rhythm with a troponin of 0.07 and a BUN of 42 and creatinine 1.7 with a potassium of 3.8. Her BP was 208/71 no heart rate of 85. Her echocardiogram showed an EF of 60 to 65% with probable diastolic dysfunction and elevated filling pressures and mild to moderate mitral regurgitation and moderate aortic stenosis with a peak velocity of 2.6 m/sec and a mean gradient of 21 mm Hg. His PAP was 38 mm Hg with a CVP of 15 mm Hg. She again was diagnosed with a UTI and treated with antibiotics and diuresed and discharged on 10/13/20 resuming her furosemide 40 mg daily but had a BUN of 66 and a creatinine of 2.2. Her TSH during her hospitalization was significantly depressed 0.08. She was admitted to [facility] on 10/23/2020 with a 6 day history of progressive fatigue and dyspnea. She was in sinus rhythm but had evidence of CHF and a right lower lobe pneumonia with a markedly elevated white count and a BUN of 66 and creatinine 1.8. Her troponin was 0.55 and increased to 0.60 but subsequently falling. She was treated with antibiotics and diuresis with improvement in her dyspnea but remains somewhat hypoxic and was found to be anemic with a hematocrit of 25% and heme-positive stool. She was transfused 1 u nit last night and this morning he reports that the dyspnea has now essentially resolved. Her echocardiogram showed an EF of 45 to 50% with mild apical and septal hypokinesis with a borderline global hypokinesis. Her blood pressures here remain in the 145 to 160 range. She continues to feel quite fatigued but her dyspnea has resolved. She denies any history of chest discomfort and had no sense of any palpitations. She did have a mild cough on admission but is now resolved and likewise her head pre- hospital edema and weight gain have now improved. She reports that she has been using her CPAP fairly regularly. She has reduced her scotch consumption down to half a mg nightly. Her cardiac risk factors include her diabetes, hyperlipidemia, although fairly well controlled currently, and hypertension. She has a family history of heart disease of some type. She has never smoked. Meds Home Medications and Allergies Home Medications Medication Instructions Recorded Confirmed Type ezetimibe 10 mg tablet (Zetia) 10 mg PO DAILY #0 10/16/12 10/23/20 History insulin lispro 100 unit/mL See Protocol SUBCUT DIRECTED 05/31/16 10/23/20 History subcutaneous solution (Humalog PRN #0 U-100 Insulin) allopurinol 100 mg tablet 300 mg PO DAILY 08/08/18 10/23/20 History (Zyloprim) levothyroxine 125 mcg tablet 125 mcg PO DAILY 08/08/18 10/23/20 History (Synthroid) prednisone 5 mg tablet 20 mg PO QAM 08/08/18 10/23/20 History rivaroxaban 15 mg tablet (Xarelto) 15 mg PO DAILY 08/08/18 10/23/20 History colchicine 0.6 mg tablet (Colcrys) See Rx Instructions .ROUTE 01/28/19 10/23/20 History .COMPLEX PRN MDD 3 tab acetaminophen 325 mg tablet 325 mg PO PRN PRN 05/28/19 10/23/20 History (Tylenol) flash glucose sensor (FreeStyle 05/28/19 10/23/20 History Thomas 14 Day Sensor) insulin glargine 100 unit/mL (3 14 unit SUBCUT QPM 05/28/19 10/23/20 History mL) subcutaneous pen (Lantus Solostar U-100 Insulin) prednisone 1 mg tablet 20 mg PO QPM 05/28/19 10/23/20 History insulin glargine 100 unit/mL (3 25 unit SUBCUT QAM 05/07/20 10/23/20 History mL) subcutaneous pen (Lantus Solostar U-100 Insulin) amlodipine 5 mg tablet (Norvasc) 10 mg PO DAILY 06/03/20 10/23/20 History rosuvastatin 10 mg tablet 5 mg PO BEDTIME 06/03/20 10/23/20 History amiodarone 400 mg tablet (Pacerone) 400 mg PO BID 07/13/20 10/23/20 History furosemide 20 mg tablet (Lasix) 20 mg PO BID 07/13/20 10/23/20 History potassium chloride 20 mEq 20 meq PO DAILYCC #60 tab 07/14/20 10/23/20 Rx tablet,extended release(part/cryst) (Klor-Con M) Allergies Allergy/AdvReac Type Severity Reaction Status Date / Time kiwi Allergy Severe ANAPHYLAXIS Verified 10/09/20 09:51 Sulfa (Sulfonamide Allergy Severe unknown Verified 10/09/20 09:51 Antibiotics) meperidine AdvReac Severe I GO NUTS Verified 10/09/20 09:51 morphine AdvReac Severe DIZZY Verified 10/09/20 09:51 Exam Vital Signs (past 8 hours): - 10/27/20 04:00 10/27/20 08:00 10/27/20 09:28 Temperature 97.6 F 98.9 F Pulse Rate 68 71 Respiratory Rate 20 21 Blood Pressure 152/82 H 145/72 H Pulse Oximetry 98 96 92 10/27/20 09:45 Temperature Pulse Rate 81 Respiratory Rate Blood Pressure Pulse Oximetry 92 Oxygen Delivery Method Room Air Oxygen Flow Rate 0 Narrative Exam Narrative: General: Elderly white female no distress HEENT: EOMI without arcus. Skin: Warm and dry Lungs: Clear bilateral to auscultation and percussion CV: Regular rate and rhythm with a normal S1 and S2 with a 3/6 harsh systolic ejection murmur at the right upper sternal border radiating to the right carotid bruit with normal carotid upstrokes. JVP is likely around 5 to 6 cm with borderline hepatic jugular reflux. Abdomen: Soft, nondistended nontender without any palpable masses or hepatosplenomegaly. : Alejandro catheter in place Extremities: Trace bilateral edema on the right 1+ on the left Neuro: Grossly nonfocal, moves all 4 extremities Awake, alert, and appropriate Objective ECG Impression: From 10/26/2020 shows sinus rhythm with possible LVH and borderline interventricular conduction delay with nonspecific ST segment abnormality the Labs Result Diagrams: 10/27/20 04:28 10/27/20 04:28 Labs: Laboratory Results - last 24 hr 10/26/20 10/26/20 10/26/20 05:12 05:12 11:45 WBC RBC Hgb Hct MCV MCH MCHC RDW Plt Count Neut % (Auto) Lymph % (Auto) [place] % (Auto) Eos % (Auto) Baso % (Auto) Neut # (Auto) Lymph # (Auto) [place] # (Auto) Eos # (Auto) Baso # (Auto) Sodium Potassium Chloride Carbon Dioxide BUN Creatinine Estimated GFR BUN/Creatinine Ratio Glucose Calcium Total Creatine Kinase 39 38 CK-MB (CK-2) TNP TNP CK-MB (CK-2) Rel Index TNP TNP Troponin I 0.267 H* 0.241 H* NT-Pro-B Natriuret Pep Blood Type O Positive Antibody Screen Negative Crossmatch See Detail 10/27/20 10/27/20 10/27/20 04:28 04:28 04:28 WBC 13.8 H RBC 3.46 L Hgb 9.4 L Hct 28.6 L MCV 82.7 MCH 27.1 MCHC 32.7 RDW 16.6 H Plt Count 181 Neut % (Auto) 88.1 H Lymph % (Auto) 4.7 L [place] % (Auto) 5.5 Eos % (Auto) 1.3 L Baso % (Auto) 0.4 Neut # (Auto) 77549 H Lymph # (Auto) 700 L [place] # (Auto) 800 Eos # (Auto) 200 Baso # (Auto) 100 Sodium 138 Potassium 4.2 Chloride 106 Carbon Dioxide 27 BUN 57 H Creatinine 1.91 H Estimated GFR 24.9 L BUN/Creatinine Ratio 29.8 H Glucose 106 Calcium 8.6 Total Creatine Kinase CK-MB (CK-2) CK-MB (CK-2) Rel Index Troponin I NT-Pro-B Natriuret Pep 8340 H Blood Type Antibody Screen Crossmatch Assessment & Plan Assessment & Plan narrative: 1. Dyspnea with hypoxemia. I suspect this is multifactorial with a large component of her presentation related to her pneumonia given her elevated white count. However, she also likely has some degree of diastolic dysfunction and volume overload, as well as anemia the which has now improved after transfusion. At this point, while she may have slight volume excess, given her renal dysfunction, I would reduce her furosemide down to 40 mg p.o. daily basis and continue to monitor her electrolytes and renal function. I suspect that her dyspnea will improve as she recovers from her pneumonia. While amiodarone pulmonary toxicity is always a consideration, I doubt this given the resolution of her dyspnea with transfusion but her amiodarone should be reduced to maintenance levels of 200 mg daily. 2. New cardiomyopathy. Her mildly reduced left ventricular systolic function is a concern and the etiology remains unclear. It could be a stress related phenomenon although does not have a classic echocardiographic appearance. While 1 galdamez needs to be concerned about underlying ischemia given her borderline troponin, she has had a fairly recent benign stress test and she is currently a poor interventional candidate given her renal insufficiency. At this point, I would simply try to provide further afterload reduction by instituting hydralazine and advancing with a blood pressure target of 110 to 130. 3. Paroxysmal atrial fibrillation. She has maintained sinus rhythm and therefore I do not believe this is a contributor to her dyspnea or diastolic dysfunction. Her amiodarone has apparently been effective but she should be on a maintenance dose of 200 mg daily. Magnesium should be checked and maintained greater than 2.0 and her potassium should be maintained greater than 4.0. A TSH should also be checked given her previously depressed TSH. 4. Moderate aortic stenosis. This does not appear to be of sufficient severity to be producing the majority of her symptoms but may be a minor player. This will need to be monitored with serial echocardiography. 5. Anemia with heme-positive stool. I agree with holding Xarelto for now with further evaluation of the cause of her GI blood loss. 6. Obstructive sleep apnea. She should continue to use CPAP regularly. 7. Acute on chronic kidney disease. I suspected this may be related to being somewhat prerenal although she does not appear to be volume depleted at this point, suggesting that she may have some intrinsic kidney disease from her diabetes, perhaps exacerbated by recent antibiotic use. I would continue to track this closely. 8. Hyperlipidemia. Appears to be adequately controlled on her current regimen. RECOMMENDATIONS: 1. Reduce amiodarone to 200 mg daily, reduce furosemide to 40 mg p.o. daily, and start hydralazine at 25 mg q.8 hours with incremental advancement with a target blood pressure of around 110 to 130. 2. Continue to track electrolytes and renal function closely. Maintain potassium level was greater than 4.0 and magnesium levels greater than 2.0 consistently. 3. Investigate cause of her anemia and heme-positive stool. 4. Continue to use CPAP regularly. 5. Evaluate for possible intrinsic renal insufficiency. Dr. Bryan will be available tomorrow to assist with further medication adjustment as necessary. Please contact him if you have further questions. Time Spent With Patient Time with patient: Greater than 35 minutes (I spent 2 hours and 1 minutes reviewing the patient's medical record, examining the patient and providing documentation)
--- NOTE | 2020-10-27 11:10 | PT.IPTN ---
Current Diagnoses Acute respiratory failure with hypoxia (10/23/20) Physical Therapy Treatment Note M2 PT-IP Current Condition Start: 10/26/20 08:30 Freq: NEEDED Status: Active Protocol: Document 10/26/20 16:06 DLM (Rec: 10/26/20 17:44 DLM [id number]) Physical Therapy Current Condition Current Condition Evaluation Date 10/26/20 Treatment Diagnosis CHF/PNA, impaired gait and mobility Onset Date 10/23/20 Precautions Other Precautions anemic, had blood transfusion 10/26/20 monitor oxygen needs M3 PT-IP Subjective Start: 10/26/20 08:30 Freq: NEEDED Status: Active Protocol: Document 10/27/20 11:10 AB (Rec: 10/27/20 14:00 AB [email or web address]) Subjective Physical Therapy Visit Type Type Treatment Note Visit Start Time 11:10 Visit Stop Time 11:35 Total Visit Minutes 25 Number of STAFF CERTIFIED NURSE MIDWIFE Visits 0 Physical Therapy Visit Comments Patient Comments agreed to do PT M4 PT-IP Mobility and Gait Start: 10/26/20 08:30 Freq: NEEDED Status: Active Protocol: Document 10/27/20 11:10 AB (Rec: 10/27/20 14:00 AB [email or web address]) PT-Bed Mobility Assessment Supine to Sit Supine to Sit Standby Assistance,Head of Bed Elevated,Bedrails PT-Transfer Assessment Sit to and From Stand Sit to and from Stand Minimal Assistance,1 Person Assistance,Use of Upper Extremities Equipment Transfer Assistive Device Gait Belt,Front Wheeled Walker Orthotic/Prosthetic Devices or Brace: No Transfers Transfer Destination Chair Transfer Technique Stand Step Pivot Transfer Ability Level of Assist Minimal Assistance,1 Person Assistance,Use of Upper Extremities Comments Mobility Comments pt agreeable do get out of the bed. O2 sat on room air at rest 92%. Nurse and NAC in room to assist pt with cleaning up. pt completed supine to sit SBA with HOB elevated. nurse and NAC assisted with brief /gown change. pt completed sit to stand from EOB min A and maintain standing min A using FWW for support while assisted with brief management. pt completed sit to stand min A and transfered to chair using FWW min A and cues. pt sat on chair and NAC completing ADLs with pt. pt agreed to ambulate and completed sit to stand from the chair min A and cues and ambulated in room ~ 30 ft using FWW min A. O2 sat after ambulation sitting on chair 86%. cues pt for deep breathing and increased to 89% after ~ 10 sec. cued again for PLB and O2 sat increased to 90%. positioned pt on the chair. call light and table placed within reach. Gait Assessment Gait Gait Assistance Required: Minimum Assistance Distance (Feet) 30 Able to Maintain Weight Bearing Status Yes During Gait Assistive Devices Assistive Device Gait Belt,Front Wheeled Walker Orthotic/Prosthetic Devices or Brace: No Gait Deviations General Gait Pattern Antalgic,Decreased Stride Length,Decreased Feet Clearance,Flexed Trunk Factors Limiting Gait Function Factors Limiting Gait Function Decreased Activity Tolerance, Decreased Strength,Difficulty Following Directions,Limited Range of Motion,Poor Balance, Poor Safety Awareness, Respiratory Distress M5 PT-IP Objective Assessments Start: 10/26/20 08:30 Freq: NEEDED Status: Active Protocol: Document 10/26/20 16:06 DLM (Rec: 10/26/20 17:44 DL [id number]) Orientation Orientation/Cognition Level of Alertness Alert Orientation Name,Age,Birthday,Month,Date, Year,Day of Week,Place, Situation Language Function Ability No Deficits Noted Safety Awareness Understands Safety Issues Memory Description No Deficits Noted Gross Range of Motion Upper Extremity ROM Assessment Within Functional Limits Lower Extremity ROM Assessment Within Functional Limits Impairments pain with left ankle ROM associated with her edema Strength Upper Extremity Strength Assessment Bilaterally Impaired Lower Extremity Strength Assessment Bilaterally Impaired Comments Strength Comments generalized functional weakness, grossly 4/5 Coordination Assessment Gross Coordination Gross Coordination WNL Sensation Assessment Sensation Sensation Description Pain Comments Sensation Comments hypersensative and tender to touch everywhere Muscle Tone Muscle Tone WNL Yes M6 PT-IP Treatment Start: 10/26/20 08:30 Freq: NEEDED Status: Active Protocol: Document 10/27/20 11:10 AB (Rec: 10/27/20 14:00 AB [email or web address]) Physical Therapy Treatment Education Education Provided Safety M7 PT-IP Assessment and Plan Start: 10/26/20 08:30 Freq: NEEDED Status: Active Protocol: Document 10/27/20 11:10 AB (Rec: 10/27/20 14:00 AB [email or web address]) PT Summary Assessment and Plan Potential Rehabilitation Potential Good Summary Impairments Pain,ROM,Strength,Balance, Coordination,Sensation,Tone, Cognition,Bed Mobility, Transfers,Gait,Activity Tolerance Progress Towards Goals Slow Progress due to Medical Issues Assessment Summary pt requiring min A with mobility and has decrease activity tolerance with decrease in O2 sat to 86% after ambulation using FWW. pt lives with her daughter and d/c plan depending if daughter will be able to provide necessary assistance to pt but at this time, may require SNF rehab. Pt has stairs to enter the house but currently is not appropriate to do stair climbing with decrease in O2 sat with ambulation. will continue to do PT to improve mobility and activity tolerance for safe d/ c plan. will continue to assess progress. Goals Bed Mobility Goal Independent Transfer Goal Independent,Front Wheeled Walker Gait Goal Standby Assistance,Front Wheel Walker Gait Distance 150 feet Other Goals up and down 7 steps with rail and SBA Days to Meet Goals 5 Frequency of Treatment Frequency Of Treatment Twice a Day Treatment Plan Physical Therapy Treatment Plan Bed Mobility Training,Transfer Training,Gait Training, Therapeutic Exercise,Balance Retraining,Discharge Planning, Neuromuscular Re-ed Recommendations To Nursing Amount of Assist Needed 1 Person Assist Discharge Recommendations PT Discharge Recommendations Home with Assistance,Home Health,SNF Rehab,Home vs SNF Transportation Needs at Discharge Private Vehicle,Wheelchair/ Cabulance
--- NOTE | 2020-10-27 11:37 | PC.NURSE ---
Patient alert, oriented, denies pain, no shortness of breath at rest, sats 94% on RA. Patient up to chair and walked around room with therapy, sats down to 86% RA with ambulation. Sats quickly back up to 92-94% once sitting. Denies chest pain. Patient bathed and now in chair, reports feeling good.
[2020-10-27] MEDS: INSULIN LISPRO 100 UNIT/ML 3ML VIAL SUBCUT ×2 (12:19→17:11)
[2020-10-27 13:22] LABS: Magnesium 2.3 mg/dL (1.6-2.3)
[2020-10-27] MEDS: HYDRALAZINE 25 MG TABLET PO ×2 (13:38→21:06)
--- NOTE | 2020-10-27 15:10 | PT.IPTN ---
Current Diagnoses Acute respiratory failure with hypoxia (10/23/20) Physical Therapy Treatment Note M2 PT-IP Current Condition Start: 10/26/20 08:30 Freq: NEEDED Status: Active Protocol: Document 10/26/20 16:06 DLM (Rec: 10/26/20 17:44 DLM [id number]) Physical Therapy Current Condition Current Condition Evaluation Date 10/26/20 Treatment Diagnosis CHF/PNA, impaired gait and mobility Onset Date 10/23/20 Precautions Other Precautions anemic, had blood transfusion 10/26/20 monitor oxygen needs M3 PT-IP Subjective Start: 10/26/20 08:30 Freq: NEEDED Status: Active Protocol: Document 10/27/20 15:10 AB (Rec: 10/27/20 16:04 AB [email or web address]) Subjective Physical Therapy Visit Type Type Treatment Note Visit Start Time 15:10 Visit Stop Time 15:30 Total Visit Minutes 20 Number of SENIOR STRATEGY ANALYST Visits 0 Physical Therapy Visit Comments Patient Comments pt is agreeable to do PT M4 PT-IP Mobility and Gait Start: 10/26/20 08:30 Freq: NEEDED Status: Active Protocol: Document 10/27/20 15:10 AB (Rec: 10/27/20 16:04 AB [email or web address]) PT-Transfer Assessment Sit to and From Stand Sit to and from Stand Contact Guard Assistance,1 Person Assistance,Use of Upper Extremities Equipment Transfer Assistive Device Gait Belt,Front Wheeled Walker Orthotic/Prosthetic Devices or Brace: No Comments Mobility Comments pt sitting on chair and agreed to do PT. O2 sat at room air: 96-97%. completed sit to stand CGA and ambulated in room using FWW min A and cues ~ 30 ft. pt presents with antalgic gait, increase RLE external rotation with decrease ERVIN and slight knee buckling towards end of stance pahse. pt requested to sit down on chair. educated pt on ambulation steadiness, increasing ERVIN and quads activation on RLE. pt completed sit to stand again and cued to evenly push with BLE CGA. ambulated 10 ft using FWW CGA and cues for steadiness and deep breathing. pt is steadier with 2nd ambulation with occasional cues for techniques. pt sat on chair and wants to stay on the chair. positioned on chair. call light and table placed within reach. O2 sat after ambulation: 90-91 % at room air Gait Assessment Gait Gait Assistance Required: Contact Guard Assist,Minimum Assistance Distance (Feet) 30 Able to Maintain Weight Bearing Status Yes During Gait Assistive Devices Assistive Device Gait Belt,Front Wheeled Walker Orthotic/Prosthetic Devices or Brace: No Gait Deviations General Gait Pattern Antalgic,Decreased Stride Length,Decreased Feet Clearance Factors Limiting Gait Function Factors Limiting Gait Function Decreased Activity Tolerance, Decreased Strength,Poor Balance,Poor Safety Awareness, Respiratory Distress Comments Gait Comments pls refer to mobility section for details M5 PT-IP Objective Assessments Start: 10/26/20 08:30 Freq: NEEDED Status: Active Protocol: Document 10/26/20 16:06 DLM (Rec: 10/26/20 17:44 DLM [id number]) Orientation Orientation/Cognition Level of Alertness Alert Orientation Name,Age,Birthday,Month,Date, Year,Day of Week,Place, Situation Language Function Ability No Deficits Noted Safety Awareness Understands Safety Issues Memory Description No Deficits Noted Gross Range of Motion Upper Extremity ROM Assessment Within Functional Limits Lower Extremity ROM Assessment Within Functional Limits Impairments pain with left ankle ROM associated with her edema Strength Upper Extremity Strength Assessment Bilaterally Impaired Lower Extremity Strength Assessment Bilaterally Impaired Comments Strength Comments generalized functional weakness, grossly 4/5 Coordination Assessment Gross Coordination Gross Coordination WNL Sensation Assessment Sensation Sensation Description Pain Comments Sensation Comments hypersensative and tender to touch everywhere Muscle Tone Muscle Tone WNL Yes M6 PT-IP Treatment Start: 10/26/20 08:30 Freq: NEEDED Status: Active Protocol: Document 10/27/20 15:10 AB (Rec: 10/27/20 16:04 AB [email or web address]) Physical Therapy Treatment Education Education Provided Safety M7 PT-IP Assessment and Plan Start: 10/26/20 08:30 Freq: NEEDED Status: Active Protocol: Document 10/27/20 15:10 AB (Rec: 10/27/20 16:04 AB [email or web address]) PT Summary Assessment and Plan Potential Rehabilitation Potential Good Summary Impairments Pain,ROM,Strength,Balance, Coordination,Sensation,Tone, Cognition,Bed Mobility, Transfers,Gait,Activity Tolerance Progress Towards Goals Slow Progress due to Activity Tolerance Assessment Summary pt is improving slowly with mobility but continues to have decrease activity tolerance affecting mobility independence. will continue to work towards goals to improve functional mobility. pt stated that her daughter can assist her at home. will conduct caregiver training when appropriate as well as stair climbing training. At this time, pt has decrease activity tolerance and will not be appropriate to do stair climbing training. will continue to assess progress. Goals Bed Mobility Goal Independent Transfer Goal Independent,Front Wheeled Walker Gait Goal Standby Assistance,Front Wheel Walker Gait Distance 150 feet Other Goals up and down 7 steps with rail and SBA Days to Meet Goals 10 Frequency of Treatment Frequency Of Treatment Twice a Day Treatment Plan Physical Therapy Treatment Plan Bed Mobility Training,Transfer Training,Gait Training, Therapeutic Exercise,Balance Retraining,Discharge Planning, Neuromuscular Re-ed Precautions Other Precautions falls, O2 sat Recommendations To Nursing Amount of Assist Needed 1 Person Assist Discharge Recommendations PT Discharge Recommendations Home with Assistance,Home Health,SNF Rehab,Home vs SNF Transportation Needs at Discharge Private Vehicle,Wheelchair/ Cabulance
[2020-10-27] MEDS: ATORVASTATIN 20 MG TABLET 10 MG PO (21:06)
[2020-10-27] MEDS: cefUROXime 250 MG TABLET PO (21:06)
[2020-10-27] MEDS: PANTOPRAZOLE DR 20 MG TABLET PO (21:06)
[2020-10-27] MEDS: INSULIN GLARGINE 100 UNIT/ML 3ML PEN 20 UNIT SUBCUT (21:09)
[2020-10-28] VITALS (10 sets, daily range): BP systolic 131–153; BP diastolic 51–78; PULSE 69–71; RESP 15–24; TEMP 35.8–37; O2SAT 92–96
[2020-10-28 05:49] LABS: Add Manual Diff / Slide Review NO; Basophils Absolute Auto 100 /uL (0-100); Basophils Percent Auto 0.5 % (0-2); Eosinophils Absolute Auto 200 /uL (0-450); Eosinophils Percent Auto 1.4 % (2-4); Hematocrit 26.1 % (36-46); Hemoglobin 8.5 g/dL (12.0-16.0); Lymphocytes Absolute Auto 800 /uL (1100-4500); Lymphocytes Percent Auto 6.2 % (25-40); Mean Corpuscular HGB Conc 32.4 % (30-36); Mean Corpuscular Hemoglobin 26.8 PG (26-34); Mean Corpuscular Volume 82.8 fL (80-100); Monocytes Absolute Auto 800 /uL (0-900); Monocytes Percent Auto 6.3 % (3-14); Neutrophils Absolute Auto 11100 /uL (1500-7000); Neutrophils Percent Auto 85.6 % (50-75); Platelet Count 162 X10^3/uL (150-400); Red Blood Cell Count 3.15 X10^6/uL (4.0-5.2); Red Cell Distribution Width 16.8 % (11.6-14.8)
[2020-10-28 05:50] LABS: BUN Creatinine Ratio 31.1 (6-22); Blood Urea Nitrogen 60 mg/dL (7-17); Calcium 8.4 mg/dL (8.4-10.2); Carbon Dioxide 25 mmol/L (22-32); Chloride 107 mmol/L (98-107); Estimated Glomerular Filt Rate 24.6 mL/min (>60); Glucose 130 mg/dL (80-110); HEMOLYSIS < 15 (0-50); Potassium 4.1 mmol/L (3.4-5.1); Sodium 136 mmol/L (137-145)
[2020-10-28] MEDS: HYDRALAZINE 25 MG TABLET PO ×3 (06:21→21:28)
[2020-10-28] MEDS: PANTOPRAZOLE DR 20 MG TABLET PO ×2 (06:22→21:28)
[2020-10-28] MEDS: LEVOTHYROXINE 125 MCG TABLET PO (06:22)
[2020-10-28 06:27] LABS: Thyroid Stimulating Hormone 0.352 uIU/mL (0.47-4.68)
--- NOTE | 2020-10-28 08:42 | P.PN_ITS ---
Subjective Subjective Date Patient Seen: 10/28/20 Time Patient Seen: 08:43 Interval history: Patient seen in follow-up of respiratory failure and pneumonia. Overall feeling better. Slept well last night. Did not use her CPAP. Having trouble adjusting. No other change. Patient otherwise with no significant change. No chest pain. Feels as if her strength is improving. Exam Vital Signs (past 8 hours): - 10/28/20 04:00 10/28/20 06:21 10/28/20 06:50 Temperature 98.6 F Pulse Rate 70 70 Respiratory Rate 18 18 Blood Pressure 131/55 L 131/59 L 147/54 H Pulse Oximetry 92 93 10/28/20 06:57 Temperature Pulse Rate 71 Respiratory Rate Blood Pressure 147/51 H Pulse Oximetry Oxygen Delivery Method Room Air Oxygen Flow Rate 0 Narrative Exam Narrative: Alert female much less fatigued in appearance. Mucous membranes moist. Neck supple without adenopathy. No JVD. Lungs are clear today. Heart regular rate and rhythm with unchanged murmur. Abdomen is soft positive bowel sounds nontender. Extremities without Objective Labs Result Diagrams: 10/28/20 05:23 10/28/20 05:23 Labs: Laboratory Results - last 24 hr 10/27/20 10/28/20 10/28/20 04:28 05:23 05:23 WBC 13.0 H RBC 3.15 L Hgb 8.5 L Hct 26.1 L MCV 82.8 MCH 26.8 MCHC 32.4 RDW 16.8 H Plt Count 162 Neut % (Auto) 85.6 H Lymph % (Auto) 6.2 L [place] % (Auto) 6.3 Eos % (Auto) 1.4 L Baso % (Auto) 0.5 Neut # (Auto) 95232 H Lymph # (Auto) 800 L [place] # (Auto) 800 Eos # (Auto) 200 Baso # (Auto) 100 Sodium 136 L Potassium 4.1 Chloride 107 Carbon Dioxide 25 BUN 60 H Creatinine 1.93 H Estimated GFR 24.6 L BUN/Creatinine Ratio 31.1 H Glucose 130 H Calcium 8.4 Magnesium 2.3 TSH 10/28/20 05:23 WBC RBC Hgb Hct MCV MCH MCHC RDW Plt Count Neut % (Auto) Lymph % (Auto) [place] % (Auto) Eos % (Auto) Baso % (Auto) Neut # (Auto) Lymph # (Auto) [place] # (Auto) Eos # (Auto) Baso # (Auto) Sodium Potassium Chloride Carbon Dioxide BUN Creatinine Estimated GFR BUN/Creatinine Ratio Glucose Calcium Magnesium TSH 0.352 L [facility] Medical History CHF (congestive heart failure) HTN (hypertension) Hypoglycemia Palpitations Paroxysmal atrial fibrillation Stable angina Surgical History No pertinent past surgical history Family History Family/Other Diabetes mellitus Father Loud snoring Hypertension Heart disease Mother Hypertension Heart disease Family/Other Heart disease Hypertension Social History household members: children Smoking Status: Never smoker alcohol intake: current Assessment & Plan Assessment & Plan narrative: Anemia. Slightly decreased today. No significant evidence of GI bleed but probably where blood losses. May need to consider further blood transfusion if continued decreased. Will have to see how things go over time. At least over the next 24 hours. If continued to decrease will replace prior to discharge. Guaiac-positive stools with anemia. We discussed options. Were off of her blood thinner numb hoping maybe this resolves. And her anemia continues to improve. At this point would be higher risk to do EGD and colonoscopy but may need to do that in the near future. Will have to see what happens over the next 1-2 weeks. That will determine were were going. She understands. Questions answered. Acute on chronic renal failure probably secondary to diuretics possibly secondary to antibiotics. Patient has had some chronic issues and I suspect this is just a mild worsening of that. I do not think any of the definitive antibiotics or medication noted been given other than diuretics have made this impact but will have to watch closely. Stable today recheck tomorrow. Minimal diuretics today. Will follow. Acute respiratory failure. Believed to be combination of pneumonia and congestive heart failure. Appreciate utility locator input. At this point I think we are better with her congestive heart failure and her pneumonia. She is off oxygen and she seems to be stable. Will continue to follow. Congestive heart failure. Echo shows worsening in condition. She did have elevation in her troponins but it was not felt that she had ischemic event what happened is unclear at this time but will need to be figured out over the next few weeks as an outpatient. Will refer back to Cardiology. Hopefully this will recover. Pneumonia. White count continues to decrease. On oral therapy. Appears to be improving. Off oxygen. Exam is improved. Chest x-rays improved yesterday. Will continue to follow. Type 2 cardiac injury felt to be secondary to pneumonia. Seems to be stable at this time. How much this impacted her congestive heart failure is unclear. Cardiology did not feel we have to make any other changes. Atrial fibrillation. Continues to be in sinus. Reduced amiodarone. Will have to be off anticoagulation at least for now. Whether not we go back on will be a discussion. Should be low risk since were in sinus on a consistent basis. Type 2 diabetes. Stable. Will follow. No change at this time. Sleep apnea. Stable. Code status no code. DVT prophylaxis SCDs. Due to her GI bleeding do not Wanna placed on anticoagulants and will follow. Disposition. Discontinue catheter today. Hope we can consistently and do well will see what Physical therapy says but hopefully home tomorrow.
[2020-10-28] MEDS: predniSONE 20 MG TABLET PO (08:50)
[2020-10-28] MEDS: POTASSIUM CHLORIDE 20 MEQ TAB PO (08:50)
[2020-10-28] MEDS: FUROSEMIDE 40 MG TABLET PO (08:50)
[2020-10-28] MEDS: AMLODIPINE 5 MG TABLET 10 MG PO (08:50)
[2020-10-28] MEDS: cefUROXime 250 MG TABLET PO ×2 (08:50→21:28)
[2020-10-28] MEDS: INSULIN LISPRO 100 UNIT/ML 3ML VIAL SUBCUT ×2 (08:50→17:23)
[2020-10-28] MEDS: DOXYCYCLINE HYCLATE 100 MG TABLET PO ×2 (08:50→21:28)
[2020-10-28] MEDS: SODIUM CHLORIDE 0.9% FLUSH 10 ML IV ×2 (08:51→21:29)
[2020-10-28] MEDS: allopurinoL 100 MG TABLET 150 MG PO (08:51)
[2020-10-28] MEDS: AMIODARONE 200 MG TABLET PO (08:51)
[2020-10-28] MEDS: EZETIMIBE 10 MG TABLET PO (08:51)
[2020-10-28] MEDS: INSULIN GLARGINE 100 UNIT/ML 3ML PEN 10 UNIT SUBCUT (10:49)
[2020-10-28] MEDS: polyethylene glycoL 3350 17 GM POWD.PACK PO (10:50)
--- NOTE | 2020-10-28 11:18 | PT.IPTN ---
Current Diagnoses Acute respiratory failure with hypoxia (10/23/20) Physical Therapy Treatment Note M2 PT-IP Current Condition Start: 10/26/20 08:30 Freq: NEEDED Status: Active Protocol: Document 10/26/20 16:06 DLM (Rec: 10/26/20 17:44 DLM [id number]) Physical Therapy Current Condition Current Condition Evaluation Date 10/26/20 Treatment Diagnosis CHF/PNA, impaired gait and mobility Onset Date 10/23/20 Precautions Other Precautions anemic, had blood transfusion 10/26/20 monitor oxygen needs M3 PT-IP Subjective Start: 10/26/20 08:30 Freq: NEEDED Status: Active Protocol: Document 10/28/20 10:40 SP (Rec: 10/28/20 17:36 SP [id number]) Subjective Physical Therapy Visit Type Type Treatment Note Visit Start Time 10:40 Visit Stop Time 11:18 Total Visit Minutes 38 Notes Vital taken during tx: supine: BP 141/57 HR 72 bpm SaO2 95% RA Seated: 149/69 Stand: 145/53, 95% RA HR 81. Number of LABOR REPRESENTATIVE Visits 1 Physical Therapy Visit Comments Patient Comments pt agreeable to working with therapy. Patient Goals to return home with daughter to assist her. Therapy Pain Assessment Pain When Pain Assessed During Mobility Pain Present Pain Present Pain Reported Location Generalized Intensity 3 Scale Used Numeric (0 - 10) Description Tender Pain Management Techniques Distraction,Modification of Treatment,Re-positioning, Timing of Activity with Medications M4 PT-IP Mobility and Gait Start: 10/26/20 08:30 Freq: NEEDED Status: Active Protocol: Document 10/28/20 10:40 SP (Rec: 10/28/20 17:36 SP [id number]) PT-Bed Mobility Assessment Supine to Sit Supine to Sit Standby Assistance,Head of Bed Elevated,Bedrails Scooting Scooting to Edge of Bed Standby Assistance PT-Transfer Assessment Sit to and From Stand Sit to and from Stand Contact Guard Assistance,1 Person Assistance,Use of Upper Extremities Equipment Transfer Assistive Device Gait Belt,Front Wheeled Walker Orthotic/Prosthetic Devices or Brace: No Transfers Transfer Destination Chair,Toilet,Wheelchair Transfer Technique pt ambulated using fWW Transfer Ability Level of Assist Contact Guard Assistance,1 Person Assistance,Use of Upper Extremities Comments Mobility Comments Pt sup>sit w/ use of bed rails , scoot to EOB sBA. Sit>stand CGA with cues for pushing from bed. Pt ambulated into bathroom, step pivot using fWW CGA with cuing for backing up fully. Stand>sit use of grab bar, CGA. Pt self pericare. Sit>stand CGA using grab bar. Pt ambulate to sink, stable with fWW front for safety post cue for positioning. Pt ambulated to w/c in hallway approx 15 ft using FWW CGA with noted trunk little unsteady and Moderate wB on FWW. Pt slow descent in wc CGA and cue for reaching back slow descent for safety. LABOR REPRESENTATIVE pushed pt down to stairs. Sit> stand CGA, ambulated to stairs using fWW, ascend 3 stairs R HR and PRODUCT SAFETY TECHNICIAN on L CGA with step to patterning, needed and 30 sec stand rest break due to + SOB, commented hard to recover with mask donned. Pt maintained mid 90% on RA. Pt descended 3 stairs and returned to sit in chair CGA using fWW. Pt stated feeling pretty weak and wanted a ride back to room. LABOR REPRESENTATIVE pushed pt back near room. Pt requested to walk futher in hallway approx 50 ft using fWW CGA, cued for proper breath. Pt sat in chair when arrived to room , CGA. Pt required assist for reclining chair. Pt had call light and all needs in reach before left. LABOR REPRESENTATIVE discussed would like to complete caregiver training with daughter in pm for safety assess including 7 stairs and further distance gait using fWW with verbalized in agreeement. Pt set up for 1330 . LABOR REPRESENTATIVE also discussed concern of BUE and BLE lymphedema knowing pt reported is new the past couple days. LABOR REPRESENTATIVE discussed with nursing end tx recommending continued care for lymphedema an option in outpt if needed at [place], nurse stated will forward to physican. Gait Assessment Gait Gait Assistance Required: Contact Guard Assist,1 Person Assist Distance (Feet) 50 Able to Maintain Weight Bearing Status Yes During Gait Assistive Devices Assistive Device Gait Belt,Front Wheeled Walker Orthotic/Prosthetic Devices or Brace: No Gait Deviations General Gait Pattern Antalgic,Decreased Stride Length,Decreased Feet Clearance Factors Limiting Gait Function Factors Limiting Gait Function Decreased Activity Tolerance, Decreased Strength,Poor Balance,Poor Safety Awareness, Respiratory Distress Comments Gait Comments pls refer to mobility section for details Stair Climbing Assessment Evaluation Level of Assist On Stairs Contact Guard Assistance,1 Person Assistance Devices Stair Climbing Assistive Devices Right Railing Technique/Endurance Stair Climbing Direction Ascend and Descend Stair Climbing Technique Step to Step Number of Steps Climbed 3 Stair Climbing Set # Repetitions (reps) 1 Comments Stair Climbing Comments see mobility comments. PT-Balance Assessment Sitting Balance and Reactions Static Sitting Balance Ability Normal Dynamic Sitting Balance Ability Good Standing Balance and Reactions Static Standing Balance Ability Good Dynamic Standing Balance Ability Fair Device Used FWW M5 PT-IP Objective Assessments Start: 10/26/20 08:30 Freq: NEEDED Status: Active Protocol: Document 10/26/20 16:06 DLM (Rec: 10/26/20 17:44 DLM [id number]) Orientation Orientation/Cognition Level of Alertness Alert Orientation Name,Age,Birthday,Month,Date, Year,Day of Week,Place, Situation Language Function Ability No Deficits Noted Safety Awareness Understands Safety Issues Memory Description No Deficits Noted Gross Range of Motion Upper Extremity ROM Assessment Within Functional Limits Lower Extremity ROM Assessment Within Functional Limits Impairments pain with left ankle ROM associated with her edema Strength Upper Extremity Strength Assessment Bilaterally Impaired Lower Extremity Strength Assessment Bilaterally Impaired Comments Strength Comments generalized functional weakness, grossly 4/5 Coordination Assessment Gross Coordination Gross Coordination WNL Sensation Assessment Sensation Sensation Description Pain Comments Sensation Comments hypersensative and tender to touch everywhere Muscle Tone Muscle Tone WNL Yes M6 PT-IP Treatment Start: 10/26/20 08:30 Freq: NEEDED Status: Active Protocol: Document 10/28/20 10:40 SP (Rec: 10/28/20 17:36 SP [id number]) Physical Therapy Treatment Exercises Exercises Ankle Pumps,Quad Sets,Heel Slides,Supine Hip Abduction, Shoulder Flexion,Elbow Flexion /Extension,Wrist ROM,Hand ROM Education Education Provided Safety M7 PT-IP Assessment and Plan Start: 10/26/20 08:30 Freq: NEEDED Status: Active Protocol: Document 10/28/20 10:40 SP (Rec: 10/28/20 17:36 SP [id number]) PT Summary Assessment and Plan Potential Rehabilitation Potential Good Status of Condition at Evaluation Evolving Summary Impairments Pain,ROM,Strength,Balance, Coordination,Sensation,Tone, Cognition,Bed Mobility, Transfers,Gait,Activity Tolerance Progress Towards Goals Slow Progress due to Activity Tolerance Assessment Summary Pt is improving, requires CGA during all mobility using FWW. Will complete caregiver training this pm with further assessment of stair mgt 7 has to do at home, completed 3 this am only. Pt limited in + SOB duirng activity and decreased strength/activity tolerance. WIll continue to assess progress. Goals Bed Mobility Goal Independent Transfer Goal Independent,Front Wheeled Walker Gait Goal Standby Assistance,Front Wheel Walker Gait Distance 150 feet Other Goals up and down 7 steps with rail and SBA Days to Meet Goals 10 Frequency of Treatment Frequency Of Treatment Twice a Day Treatment Plan Physical Therapy Treatment Plan Bed Mobility Training,Transfer Training,Gait Training, Therapeutic Exercise,Balance Retraining,Discharge Planning, Neuromuscular Re-ed Other Recommendations and Next Treatment bed mob,breathing ex, gait Focus further distance w/c follow as needed, stair mgt, caregiver training this pm 1330 with daughter. Precautions Other Precautions falls, O2 sat Recommendations To Nursing Amount of Assist Needed 1 Person Assist Discharge Recommendations PT Discharge Recommendations Home with 24/7 Assist Available,Home Health Transportation Needs at Discharge Private Vehicle,Wheelchair/ Cabulance
--- NOTE | 2020-10-28 12:00 | PC.NURSE ---
Provided patient 2 containers of Bladen Juice to bring up Blood Sugar level
--- NOTE | 2020-10-28 14:23 | PT.IPTN ---
Current Diagnoses Acute respiratory failure with hypoxia (10/23/20) Physical Therapy Treatment Note M2 PT-IP Current Condition Start: 10/26/20 08:30 Freq: NEEDED Status: Active Protocol: Document 10/26/20 16:06 DLM (Rec: 10/26/20 17:44 DLM [id number]) Physical Therapy Current Condition Current Condition Evaluation Date 10/26/20 Treatment Diagnosis CHF/PNA, impaired gait and mobility Onset Date 10/23/20 Precautions Other Precautions anemic, had blood transfusion 10/26/20 monitor oxygen needs M3 PT-IP Subjective Start: 10/26/20 08:30 Freq: NEEDED Status: Active Protocol: Document 10/28/20 15:38 SP (Rec: 10/28/20 17:51 SP [id number]) Subjective Physical Therapy Visit Type Type Treatment Note Visit Start Time 13:38 Visit Stop Time 14:23 Total Visit Minutes 45 Notes Daughter completed caregiver training, provided physical assist required for all mobiltiy. Number of SENIOR WAREHOUSE CLERK Visits 2 Physical Therapy Visit Comments Patient Comments pt agreeable to working with therapy. Patient Goals to return home with daughter to assist her. Therapy Pain Assessment Pain When Pain Assessed During Mobility Pain Present Pain Present Pain Reported Location Generalized Intensity 2 Scale Used Numeric (0 - 10) Description With Movement Pain Management Techniques Distraction,Modification of Treatment,Re-positioning, Timing of Activity with Medications M4 PT-IP Mobility and Gait Start: 10/26/20 08:30 Freq: NEEDED Status: Active Protocol: Document 10/28/20 15:38 SP (Rec: 10/28/20 17:51 SP [id number]) PT-Transfer Assessment Sit to and From Stand Sit to and from Stand Standby Assistance,Contact Guard Assistance,1 Person Assistance,Use of Upper Extremities Equipment Transfer Assistive Device Gait Belt,Front Wheeled Walker Orthotic/Prosthetic Devices or Brace: No Transfers Transfer Destination Chair,Wheelchair Transfer Technique pt ambulated using fWW Transfer Ability Level of Assist Standby Assistance,Contact Guard Assistance,1 Person Assistance,Use of Upper Extremities Comments Mobility Comments Sit>stand CGA, ambulated further distance into hallway using fWW 55ft w/c follow due to decreased activity tolerance, required sit and pushed rest way to stairs. Pt ascended/descended 9 stairs L HR FENDER FINISHER onR by daughter CGA with brief rest each set then requested sit back in w/c, used fWW for SPT wc/<> stairs. Pushed pt back to room, walked further distance in hallway approx 55ft usuing FWW CGA by casie andw/c follow. Pt returned to chair SBA descent into chair. SENIOR WAREHOUSE CLERK spent extra time answering questions , mainly regarding showers and where to get bath chair ( directed to hand out of DME), also concern about lymphedema in B UEs and LEs. SENIOR WAREHOUSE CLERK stated that physician and nursing can more privide info how doing with medication assist but that if continues past DC, recommending outpt lyphedema would beneficial and verbalized understanding. Will continue to assess progress of acute inpt therapy. Gait Assessment Gait Gait Assistance Required: Standby Assistance,Contact Guard Assist,1 Person Assist Distance (Feet) 55 Able to Maintain Weight Bearing Status Yes During Gait Assistive Devices Assistive Device Gait Belt,Front Wheeled Walker Orthotic/Prosthetic Devices or Brace: No Gait Deviations General Gait Pattern Antalgic,Decreased Stride Length,Decreased Feet Clearance Factors Limiting Gait Function Factors Limiting Gait Function Decreased Activity Tolerance, Decreased Strength,Poor Balance,Respiratory Distress Comments Gait Comments Pt BLe little unsteady returned to room, due to decreased strength and activity tolerance but improved from am tx. Stair Climbing Assessment Evaluation Level of Assist On Stairs Contact Guard Assistance,1 Person Assistance Devices Stair Climbing Assistive Devices Left Railing Technique/Endurance Stair Climbing Direction Ascend and Descend Stair Climbing Technique Step to Step Number of Steps Climbed 3 Stair Climbing Set # Repetitions (reps) 1 Comments Stair Climbing Comments FENDER FINISHER on opposite UE. PT-Balance Assessment Sitting Balance and Reactions Static Sitting Balance Ability Normal Dynamic Sitting Balance Ability Good Standing Balance and Reactions Static Standing Balance Ability Good Dynamic Standing Balance Ability Fair Device Used FWW M5 PT-IP Objective Assessments Start: 10/26/20 08:30 Freq: NEEDED Status: Active Protocol: Document 10/26/20 16:06 [facility] (Rec: 10/26/20 17:44 [facility] [id number]) Orientation Orientation/Cognition Level of Alertness Alert Orientation Name,Age,Birthday,Month,Date, Year,Day of Week,Place, Situation Language Function Ability No Deficits Noted Safety Awareness Understands Safety Issues Memory Description No Deficits Noted Gross Range of Motion Upper Extremity ROM Assessment Within Functional Limits Lower Extremity ROM Assessment Within Functional Limits Impairments pain with left ankle ROM associated with her edema Strength Upper Extremity Strength Assessment Bilaterally Impaired Lower Extremity Strength Assessment Bilaterally Impaired Comments Strength Comments generalized functional weakness, grossly 4/5 Coordination Assessment Gross Coordination Gross Coordination WNL Sensation Assessment Sensation Sensation Description Pain Comments Sensation Comments hypersensative and tender to touch everywhere Muscle Tone Muscle Tone WNL Yes M6 PT-IP Treatment Start: 10/26/20 08:30 Freq: NEEDED Status: Active Protocol: Document 10/28/20 15:38 SP (Rec: 10/28/20 17:51 SP [id number]) Physical Therapy Treatment Education Education Provided Safety M7 PT-IP Assessment and Plan Start: 10/26/20 08:30 Freq: NEEDED Status: Active Protocol: Document 10/28/20 15:38 SP (Rec: 10/28/20 17:51 SP [id number]) PT Summary Assessment and Plan Potential Rehabilitation Potential Good Status of Condition at Evaluation Evolving Summary Impairments Pain,ROM,Strength,Balance, Coordination,Sensation,Tone, Cognition,Bed Mobility, Transfers,Gait,Activity Tolerance Progress Towards Goals Progressing Toward Goals,Slow Progress due to Medical Issues ,Slow Progress due to Activity Tolerance Assessment Summary Pt requires CGA-SBA during all mobility today, decreased SOB this tx. [facility]. Recommending pt is able to go home with family to assist her when medically stable. Continue to assess progress. Pt maintained mid 90s O2 saturation and HR 70s throughout tx but requires rest breaks for controlled breath for safety. Goals Bed Mobility Goal Independent Transfer Goal Independent,Front Wheeled Walker Gait Goal Standby Assistance,Front Wheel Walker Gait Distance 150 feet Other Goals up and down 7 steps with rail and SBA Days to Meet Goals 10 Frequency of Treatment Frequency Of Treatment Twice a Day Treatment Plan Physical Therapy Treatment Plan Bed Mobility Training,Transfer Training,Gait Training, Therapeutic Exercise,Balance Retraining,Discharge Planning, Neuromuscular Re-ed Other Recommendations and Next Treatment bed mob,breathing ex, gait Focus further distance w/c follow as needed, stair mgt, Precautions Other Precautions falls, O2 sat Recommendations To Nursing Amount of Assist Needed 1 Person Assist Discharge Recommendations PT Discharge Recommendations Home with 24/ Assist Available,Home Health Transportation Needs at Discharge Private Vehicle,Wheelchair/ Cabulance
--- NOTE | 2020-10-28 14:56 | CM.DPC ---
DCP Cont: Per MD, pt continuing to make progress and will d/c berrios cath today and continue to work with PT towards possible d/c tomorrow if medically stable. PT to attempt CG training and stairs with pt's Dtr today and PT notes not available at this time to determine if any further d/c needs but plan is home with que KENDALL referral and F2F already completed. BIN Singh
[2020-10-28] MEDS: INSULIN GLARGINE 100 UNIT/ML 3ML PEN 20 UNIT SUBCUT (21:27)
[2020-10-28] MEDS: ATORVASTATIN 20 MG TABLET 10 MG PO (21:28)
[2020-10-29] VITALS: BP 148/54; PULSE 73; RESP 16; TEMP 36.4; O2SAT 93
[2020-10-29 01:13] VITALS: O2SAT 94
[2020-10-29 04:00] VITALS: BP 139/57; PULSE 68; RESP 18; TEMP 36.3; O2SAT 93
[2020-10-29 05:12] LABS: Add Manual Diff / Slide Review NO; Basophils Absolute Auto 0 /uL (0-100); Basophils Percent Auto 0.4 % (0-2); Eosinophils Absolute Auto 200 /uL (0-450); Eosinophils Percent Auto 1.5 % (2-4); Hematocrit 26.6 % (36-46); Hemoglobin 8.6 g/dL (12.0-16.0); Lymphocytes Absolute Auto 700 /uL (1100-4500); Lymphocytes Percent Auto 6.1 % (25-40); Mean Corpuscular HGB Conc 32.2 % (30-36); Mean Corpuscular Volume 83.9 fL (80-100); Monocytes Absolute Auto 800 /uL (0-900); Monocytes Percent Auto 7.6 % (3-14); Neutrophils Absolute Auto 9000 /uL (1500-7000); Neutrophils Percent Auto 84.4 % (50-75); Platelet Count 179 X10^3/uL (150-400); Red Blood Cell Count 3.17 X10^6/uL (4.0-5.2); Red Cell Distribution Width 16.7 % (11.6-14.8); White Blood Cell Count 10.6 X10^3/uL (4.5-11.0)
[2020-10-29 05:18] LABS: BUN Creatinine Ratio 29.8 (6-22); Blood Urea Nitrogen 54 mg/dL (7-17); Calcium 8.5 mg/dL (8.4-10.2); Carbon Dioxide 24 mmol/L (22-32); Chloride 109 mmol/L (98-107); Estimated Glomerular Filt Rate 26.5 mL/min (>60); Glucose 119 mg/dL (80-110); HEMOLYSIS < 15 (0-50); Potassium 3.9 mmol/L (3.4-5.1); Sodium 138 mmol/L (137-145)
[2020-10-29 05:35] LABS: Free T3, Triiodothyronine Free 1.52 pg/mL (2.77-5.27); Free T4, Direct Thyroxine 2.08 ng/dL (0.78-2.19)
[2020-10-29 06:29] VITALS: BP 144/62; PULSE 77
[2020-10-29] MEDS: LEVOTHYROXINE 125 MCG TABLET PO (06:29)
[2020-10-29] MEDS: HYDRALAZINE 25 MG TABLET PO (06:29)
[2020-10-29] MEDS: PANTOPRAZOLE DR 20 MG TABLET PO (06:29)
[2020-10-29 08:00] VITALS: BP 141/55; PULSE 72; RESP 19; TEMP 36.6; O2SAT 96
--- NOTE | 2020-10-29 08:18 | P.DS_ITS ---
History of Present Illness History of Present Illness Date Patient Seen: 10/29/20 Time Patient Seen: 08:18 Date of Onset of Symptoms: 10/25/20 Chief complaint: short of breath Narrative: Patient is an 85-year-old white female well known to me with history of atrial fibrillation and congestive heart failure recently admitted to [facility] for evaluation. At that time she had been switched from torsemide to Lasix and had been doing better. I had seen her last week and she had been doing great. Over the last 6 days she has been having increasing shortness of breath and just feeling kind of decreased energy. No fevers no chills no cough slight increase in edema but her weight is been stable. She has had no bowel or bladder changes. She has had no dyspnea at rest but had been slowly getting more dyspneic with exertion. She was having no chest pain. Really has had no significant other changes. She did state she just felt kind of tired. She awoke the night of admission which was last night and has felt extremely short of breath. She was unable to do anything could hardly move around. And felt as if she really could not breathe and called EMS Discharge Providers Provider Date of admission: 10/23/20 03:06 Discharge Date: 10/29/20 Primary care physician: Benigno Mahan MD Consults: 10/23/20 06:06 Consult to Respiratory Therapy Evaluate & Treat Comment: Physician Instructions: Evaluate and treat 10/24/20 13:42 Consult to Home Health Routine Comment: Gisel KENDALL has accepted the referral Reason For Exam: ENOCH RN at d/c 10/25/20 11:35 Consult to Physical Therapy Evaluate & Treat Comment: ambulation Physician Instructions: Evaluate and Treat 10/26/20 10:29 Consult to Respiratory Therapy Evaluate & Treat Comment: Physician Instructions: Evaluate and treat 10/26/20 13:32 Consult to Physician Routine Comment: Consulting Provider: Daniela Bryna Reason for consultation: chf Discharge provider: Benigno Mahan MD Summary Hospital Course Discharge Diagnosis: Anemia Guaiac-positive stool Acute and chronic renal failure Acute respiratory failure Congestive heart failure Pneumonia Type 2 cardiac injury Atrial fibrillation Type 2 diabetes Sleep apnea Hospital Course: Acute respiratory failure. Patient was brought and admitted with a white count and elevated BNP. O2 requirement for the 1st 3 days. Some of which is felt to be secondary to her sleep apnea which was not well controlled with her mask. It was felt to be a combination of her pneumonia. Sh germaine was treated please see pneumonia and was improved. Really got significantly better when we both gave her blood and increased her diuresis. She has been stable since that time. And will be followed. Congestive heart failure. Left heart. Patient was noted on echo to have new global hypokinesis in decrease in ejection fracture. Patient was diuresed pretty aggressively initially and was found to have increasing difficulty with her kidneys and that was backed off. After we decreased diuresis she actually got somewhat worse. Cardiology was consulted and felt as if it was unclear as to the cause but was felt to be secondary to her type 2 cardiac injury. Does not feel that it was an ischemic issue in the classic sense cardiac vessel disease. At this point will be following as an outpatient she will follow-up with beater boss. Will continue her once a day 40 mg of Lasix which he seems to be doing well and re-evaluate in 1 week. Will follow up with beater boss for further workup Acute and chronic renal failure. Patient was admitted and on day 3 began having increasing creatinine. Was felt to be secondary diuresis and was discontinued. Due to the congestive heart failure restarted and she started having increasing issues she was started back on her regular oral dose and it appears as if her kidneys are improving. Do feel as if this will resolve. Was felt to be prere nal issue and will be followed as an outpatient. Anemia. Patient was found to be anemic. There was some question as to the cause she had guaiacs done and was positive on her guaiac. Is felt to be secondary to iron deficiency anemia with blood loss she was placed on pantoprazole and discontinued her anticoagulation which will need to be followed. She was given 2 units of blood and seems to have done well since that time. She is currently in normal sinus it should not be is biggest issue. Will need to work this up as an outpatient if it does not resolve will see how things go recheck stool in 1 week. Along with CBC. At this point will not give further blood transfusion Guaiac-positive stools. Will re-evaluate in 1 week at this point she is not a candidate for EGD and colonoscopy until we get her cardiac status stabilized will see what happens and follow depending on stabilization of her cbc and resolution of her guaiac-positive stools we may be able to follow as an outpatient without further workup will depend on Cardiology and function of her heart. Type 2 cardiac injury. Patient had rising troponins over the course of the 1st 24 hours. Had discussed extensively with Cardiology who felt this was not secondary to true ischemic disease. Patient had no symptoms normal EKGs and it was felt to be secondary to her pneumonia and her illness. She has been stable throughout the course otherwise and we will follow as an outpatient probably will need cardiac workup but hopefully cardiology will decide on that in the near future. Pneumonia. [place] [id number] on initial presentation. She was started on Rocephin and Zithromax. Zithromax was discontinued secondary to prolonged QT interval. She was then started on doxycycline. Day before discharge she was switched to oral Ceftin her white count continued to improve. She will be discharged on Ceftin and doxycycline for 1 week Atrial fibrillation. Patient has been in sinus rhythm since her presentation. Her anticoagulation was discontinued secondary to her anemia and guaiac-positive stools. She will be followed as an outpatient. Hopefully we can reinstate her anticoagulation Type 2 diabetes. Numbers actually were doing well. Will follow as an outpatient adjust as needed. Sleep apnea. Stable new mask seems to be doing well. Exam Vital Signs (past 8 hours): - 10/29/20 01:13 10/29/20 04:00 10/29/20 06:29 Temperature 97.4 F L Pulse Rate 68 77 Respiratory Rate 18 Blood Pressure 139/57 L 144/62 H Pulse Oximetry 94 93 Oxygen Delivery Method Room Air Oxygen Flow Rate 0 Narrative Exam Narrative: Alert female much less fatigued no acute distress. Lungs are clear. Heart regular rate and rhythm with unchanged murmur. Abdomen soft positive bowel sounds nontender extremities without cyanosis clubbing edema. Neurologic exam is unremarkable Objective Labs Result Diagrams: 10/29/20 04:52 10/29/20 04:52 Labs: Laboratory Results - last 24 hr 10/29/20 10/29/20 10/29/20 04:52 04:52 04:52 WBC 10.6 RBC 3.17 L Hgb 8.6 L Hct 26.6 L MCV 83.9 MCH 27.0 MCHC 32.2 RDW 16.7 H Plt Count 179 Neut % (Auto) 84.4 H Lymph % (Auto) 6.1 L [place] % (Auto) 7.6 Eos % (Auto) 1.5 L Baso % (Auto) 0.4 Neut # (Auto) 9000 H Lymph # (Auto) 700 L [place] # (Auto) 800 Eos # (Auto) 200 Baso # (Auto) 0 Sodium 138 Potassium 3.9 Chloride 109 H Carbon Dioxide 24 BUN 54 H Creatinine 1.81 H Estimated GFR 26.5 L BUN/Creatinine Ratio 29.8 H Glucose 119 H Calcium 8.5 Free T4 2.08 Free T3 1.52 L PFSH Medical History CHF (congestive heart failure) HTN (hypertension) Hypoglycemia Palpitations Paroxysmal atrial fibrillation Stable angina Surgical History No pertinent past surgical history Family History Family/Other Diabetes mellitus Father Loud snoring Hypertension Heart disease Mother Hypertension Heart disease Family/Other Heart disease Hypertension Social History household members: children Smoking Status: Never smoker alcohol intake: current Discharge Assessment & Plan Assessment and Plan Assessment: Discharge home follow-up next week. Discharge Plan Discharge Plan Patient Disposition: Home Discharge orders & Medications Prescriptions: New cefuroxime axetil 250 mg Tablet 250 mg PO BID Qty: 14 RF: 0 hydralazine 25 mg Tablet 25 mg PO Q8HR Qty: 60 RF: 3 doxycycline hyclate 100 mg Tablet 100 mg PO BID Qty: 14 RF: 0 Lantus Solostar U-100 Insulin 100 unit/mL (3 mL) Insulin Pen 10 unit SUBCUT DAILY Qty: 3 RF: 0 prednisone 20 mg Tablet 20 mg PO DAILY Qty: 100 RF: 0 pantoprazole 20 mg Tablet,Delayed Release (Dr/Ec) 20 mg PO DAILY@0700,2100 Qty: 30 RF: 1 Continued ezetimibe [Zetia] 10 MG tablet 10 mg PO DAILY Qty: 0 RF: 0 insulin lispro [Humalog U-100 Insulin] 100 UNIT/1 ML solution See Protocol sliding scale dose SUBCUT DIRECTED PRN (Reason: sliding scale) Qty: 0 RF: 0 allopurinol [Zyloprim] 100 mg tablet 300 mg PO DAILY RF: 0 levothyroxine [Synthroid] 125 mcg tablet 125 mcg PO DAILY RF: 0 colchicine [Colcrys] 0.6 mg Tablet See Rx Instructions .ROUTE .COMPLEX MDD 3 tab PRN (Reason: Gout) RF: 0 amlodipine [Norvasc] 5 mg tablet 10 mg PO DAILY RF: 0 rosuvastatin 10 mg tablet 5 mg PO BEDTIME RF: 0 acetaminophen [Tylenol] 325 mg Tablet 325 mg PO PRN PRN (Reason: pain) RF: 0 Lantus Solostar U-100 Insulin 100 unit/mL (3 mL) insulin pen 14 unit SUBCUT QPM RF: 0 furosemide [Lasix] 20 mg tablet 20 mg PO BID RF: 0 potassium chloride [Klor-Con M20] 20 mEq Tablet,Er Particles/Crystals 20 meq PO DAILYCC Qty: 60 RF: 1 Discontinued prednisone 5 mg tablet 20 mg PO QAM RF: 0 Xarelto 15 mg tablet 15 mg PO DAILY RF: 0 prednisone 1 mg tablet 20 mg PO QPM RF: 0 Lantus Solostar U-100 Insulin 100 unit/mL (3 mL) Insulin Pen 25 unit SUBCUT QAM RF: 0 amiodarone [Pacerone] 400 mg Tablet 400 mg PO BID RF: 0 No Action (DME) FreeStyle Thomas 14 Day Sensor Kit MISCELLANEOUS RF: 0 Follow up/Referrals: Dainela Bryan MD [Physician] - 1 Week (deya or mahesh. need patient seen in the next one to two weeks please call for appointment) Benigno Mahan MD [Primary Care Provider] - 11/03/20 (call for appointment) Diet/Activity/Treatments Diet: Carb-consistent/Diabetic Activity: as tolerated Skin/Wound/Dressing Care Report to your healthcare provider any signs of infection, such as:: chills, fever and night sweats Visit Report/Discharge Packet Instructions: DI for Heart Failure Discharge Data Primary Care Provider: Benigno Mahan
[2020-10-29 09:15] VITALS: BP 141/55
--- NOTE | 2020-10-29 09:15 | CM.DPC ---
DCP: continued: Pt today with a d/c to home and with Gisel KENDALL RN. Jackie/Gisel is updated via phone discussion and the d/c summary is faxed. Checked in with pt who says she is pleased to be going home today. Went over IMM # 2 with her as she has macular degeneration. She voiced understanding of same. Spoke with her daughter Jackie with updated. Jackie will be here at 1130 to go over d/c instructions with GUERLINE Osborne/[place]. Jackie says that her sister is her now to help out and they will be getting more caregiving in place for pt as need arises. P: home today as per above.
[2020-10-29] MEDS: DOXYCYCLINE HYCLATE 100 MG TABLET PO (09:27)
[2020-10-29] MEDS: POTASSIUM CHLORIDE 20 MEQ TAB PO (09:27)
[2020-10-29] MEDS: allopurinoL 100 MG TABLET 150 MG PO (09:27)
[2020-10-29] MEDS: predniSONE 20 MG TABLET PO (09:28)
[2020-10-29] MEDS: AMIODARONE 200 MG TABLET PO (09:28)
[2020-10-29] MEDS: cefUROXime 250 MG TABLET PO (09:28)
[2020-10-29] MEDS: AMLODIPINE 5 MG TABLET 10 MG PO (09:28)
[2020-10-29] MEDS: FUROSEMIDE 40 MG TABLET PO (09:28)
[2020-10-29] MEDS: EZETIMIBE 10 MG TABLET PO (09:28)
[2020-10-29] MEDS: INSULIN GLARGINE 100 UNIT/ML 3ML PEN 10 UNIT SUBCUT (09:32)
--- NOTE | 2020-10-29 11:28 | PC.NURSE ---
Day shift: Pt incontinent of B&B at approx 1100. OOB to BR to void and brief changed. IV removed and tele d/c'd. Pt to d/c home when her daughter gets here. Denies any chest pain or nausea. Pt helped getting dressed by OFFICE MACHINE MECHANIC. Will go over d/c paperwork when daughter arrives.
--- NOTE | 2020-10-29 12:26 | PT-IP ANOTE ---
Pt refused treatment due to the fact that she getting ready to discharge and leave the hospital
--- NOTE | 2020-10-29 12:43 | PC.NURSE ---
Day shift: Pt left unit with her daughter at approx 1240 via WC. Paperwork signed and all questions answered. Edema present at d/c. Pt has all personal belongings. scripts sent electronic to Pt's pharmacy. Pt's daughter in room for teachings. Pt stated I'm happy to be going home today. Pharmacy went over Pt's home meds prior to d/c.
== END 2020-10-29 12:45 | disposition home or self-care (01) | DRG 291 ==
LOC: ED 03:07 → AC 03:07
PROVIDERS: Family Medicine; Student in an Organized Health Care Education/Training Program; Admitting Provider Family Medicine; Emergency Provider Emergency Medicine; PCP Family Medicine; Referring Provider Emergency Medicine; Visit Provider Family Medicine
DX: I13.0 Hypertensive heart and chronic kidney disease with heart failure and stage 1 through stage 4 chronic kidney disease, or unspecified chronic kidney disease (principal); J18.9 Pneumonia, unspecified organism; J96.01 Acute respiratory failure with hypoxia; I50.21 Acute systolic (congestive) heart failure; N18.9 Chronic kidney disease, unspecified; G47.33 Obstructive sleep apnea (adult) (pediatric); I35.0 Nonrheumatic aortic (valve) stenosis; D50.0 Iron deficiency anemia secondary to blood loss (chronic); E11.22 Type 2 diabetes mellitus with diabetic chronic kidney disease; R94.31 Abnormal electrocardiogram [ECG] [EKG]; R19.5 Other fecal abnormalities; R79.89 Other specified abnormal findings of blood chemistry; I48.0 Paroxysmal atrial fibrillation; Z79.4 Long term (current) use of insulin; Z79.01 Long term (current) use of anticoagulants; Z20.822 Contact with and (suspected) exposure to COVID-19
CPT/HCPCS: 36415; 36430; 71045; 80048; 80053; 80061; 82550; 82962; 83690; 83735; 83880; 84145; 84439; 84443; 84481; 84484; 85025; 85610; 85730; 86850; 86900; 86901; 87635; 93005; 93010; 93307; 96365; 96368; 96375; 97110; 97116; 97162; 97530; 99232; 99285; 99291; C9803; P9016; J0696; J1644; J1815; J1940

== ENCOUNTER 2020-11-12 02:05 | Emergency (ER) | payer MEDICARE, OTHER, SELFPAY ==
[2020-10-23 04:06] VITALS: BMI 26.6
[2020-11-12 02:30] VITALS: BP 173/72; PULSE 72; RESP 17; TEMP 36.9; O2SAT 98; BMI 25.0
--- NOTE | 2020-11-12 02:40 | ED_ITS ---
HPI - Nausea/Vomiting/Diarrhea General Chief complaint: Nausea/Vomiting/Diarrhea Stated complaint: stomach pain, vomiting for hours leg swelling Time Seen by Provider: 11/12/20 02:38 History of Present Illness HPI Narrative: Patient complains of abdominal pain mostly up for right side 10: 00 p.m. tonight. With nausea. No diarrhea. Denies any abdominal surgical history. Recently admitted here for CHF exacerbation. Has been adjusting home diuretics, has swelling to the lower extremities with weeping to the left lower extremity. No chest pain. Patient did slip out of a chair tonight. Denies any injuries. Related Data Home Medications Medication Instructions Recorded Confirmed ezetimibe 10 mg tablet (Zetia) 10 mg PO DAILY #0 10/16/12 11/13/20 insulin lispro 100 unit/mL See Protocol SUBCUT DIRECTED 05/31/16 11/13/20 subcutaneous solution (Humalog PRN #0 U-100 Insulin) allopurinol 100 mg tablet 300 mg PO DAILY 08/08/18 11/13/20 (Zyloprim) levothyroxine 125 mcg tablet 125 mcg PO DAILY 08/08/18 11/13/20 (Synthroid) colchicine 0.6 mg tablet (Colcrys) See Rx Instructions .ROUTE 01/28/19 11/13/20 .COMPLEX PRN MDD 3 tab acetaminophen 325 mg tablet 325 mg PO PRN PRN 05/28/19 11/13/20 (Tylenol) flash glucose sensor (FreeStyle 05/28/19 11/13/20 Thomas 14 Day Sensor) insulin glargine 100 unit/mL (3 14 unit SUBCUT QPM 05/28/19 11/13/20 mL) subcutaneous pen (Lantus Solostar U-100 Insulin) amlodipine 5 mg tablet (Norvasc) 10 mg PO DAILY 06/03/20 11/13/20 rosuvastatin 10 mg tablet 5 mg PO BEDTIME 06/03/20 11/13/20 furosemide 20 mg tablet (Lasix) 40 mg PO BID 07/13/20 11/13/20 amiodarone 200 mg tablet 200 mg PO DAILY 11/13/20 11/13/20 pantoprazole 20 mg tablet,delayed 40 mg PO DAILY@0700,2100 11/13/20 11/13/20 release Previous Rx's Medication Instructions Recorded potassium chloride 20 mEq 20 meq PO DAILYCC #60 tab 03/30/21 tablet,extended release(part/cryst) (Klor-Con M) hydralazine 25 mg tablet 25 mg PO Q8HR #60 tab 10/29/20 insulin glargine 100 unit/mL (3 10 unit SUBCUT DAILY #3 ml 10/29/20 mL) subcutaneous pen (Lantus Solostar U-100 Insulin) prednisone 20 mg tablet 20 mg PO DAILY #100 tab 10/29/20 Allergies Allergy/AdvReac Type Severity Reaction Status Date / Time kiwi Allergy Severe ANAPHYLAXIS Verified 11/12/20 13:05 Sulfa (Sulfonamide Allergy Severe unknown Verified 11/12/20 13:05 Antibiotics) meperidine AdvReac Severe I GO NUTS Verified 11/12/20 13:05 morphine AdvReac Severe DIZZY Verified 11/12/20 13:05 Review of Systems Review of Systems Narrative: GENERAL: Denies chills, fatigue, malaise, fever, sweats. 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 current use of amiodarone (07/08/20) Paroxysmal atrial fibrillation Peripheral arterial occlusive disease (08/29/13) PMR (polymyalgia rheumatica) Surgical History S/P cholecystectomy S/P hysterectomy Family History Family/Other Diabetes mellitus Father Loud snoring Hypertension Heart disease Mother Hypertension Heart disease Family/Other Heart disease Hypertension Social History household members: children Smoking Status: Never smoker alcohol intake: current Smoking Status: Never smoker alcohol intake frequency: a few times a week Alcohol type: hard liquor Substance Use Type: does not use Exam Initial Vital Signs Initial Vital Signs: Vital Signs Temperature 98.4 F 11/12/20 02:30 Pulse Rate 72 11/12/20 02:30 Respiratory Rate 17 11/12/20 02:30 Blood Pressure 173/72 H 11/12/20 02:30 Pulse Oximetry 98 11/12/20 02:30 Course Orders Ordered: Discontinued Medications Al Hydrox/Mg Hydrox/Simethicone 20 ml/ Lidocaine HCl 15 ml 0 ml PO NOW ONE Stop: 11/12/20 05:18 Last Admin: 11/12/20 05:27 Dose: 35 ml Documented by: MIGUEL A Morphine Sulfate (Morphine 2 Mg/Ml Inj) 2 mg IV NOW ONE Stop: 11/12/20 02:50 Last Admin: 11/12/20 02:57 Dose: 2 mg Documented by: MAXIM Ondansetron HCl (Ondansetron 4 Mg/2 Ml Inj) 4 mg IV NOW ONE Stop: 11/12/20 02:50 Last Admin: 11/12/20 02:57 Dose: 4 mg Documented by: MAXIM Ondansetron HCl (Ondansetron 4 Mg Odt) 4 mg SL NOW ONE Stop: 11/12/20 06:51 Last Admin: 11/12/20 06:56 Dose: 4 mg Documented by: MAXIM Pantoprazole Sodium (Pantoprazole 40 Mg Vial) 40 mg IV NOW ONE Stop: 11/12/20 06:02 Last Admin: 11/12/20 06:22 Dose: 40 mg Documented by: MIGUEL A Reevaluation(s) Reevaluation #1: Patient tolerated 2 mg of morphine without difficulty. However does still complain of epigastric discomfort. Reviewed with patient and family CT scan results. Gave for suggestions for zjif-clq-wchrisy magnesium citrate as well as Fleet's enema. Patient states she did try MiraLax without success. Time: 05:19 Reevaluation #2: Patient states abdominal pain did improve with GI cocktail. Reviewed pancreas findings on CT scan with patient. Needs to be followed by primary care. Time: 05:59 Vital Signs Vital signs: Vital Signs - 8 hr 11/12/20 02:30 11/12/20 05:56 Temperature 98.4 F Pulse Rate 72 75 Respiratory Rate 17 20 Blood Pressure 173/72 H 129/61 Pulse Oximetry 98 92 MDM - Nausea/Vomiting/Diarrhea Differential Diagnosis Differential diagnosis: Likely other (Gastritis/GERD/constipation/chronic chf) Lab Data Result diagrams: 11/12/20 02:30 11/12/20 02:30 Labs: Lab Results 11/12/20 11/12/20 11/12/20 Range/Units 02:30 02:30 02:30 WBC 10.1 (4.5-11.0) X10^3/uL RBC 3.34 L (4.0-5.2) X10^6/uL Hgb 8.9 L (12.0-16.0) g/dL Hct 27.7 L (36-46) % MCV 82.8 (80-100) fL MCH 26.5 (26-34) PG MCHC 32.1 (30-36) % RDW 17.8 H (11.6-14.8) % Plt Count 106 L (150-400) X10^3/uL Neut % (Auto) 86.3 H (50-75) % Lymph % (Auto) 3.2 L (25-40) % [place] % (Auto) 10.3 (3-14) % Eos % (Auto) 0.0 L (2-4) % Baso % (Auto) 0.2 (0-2) % Neut # (Auto) 8700 H (8910-5749) /uL Lymph # (Auto) 300 L (3635-5391) /uL [place] # (Auto) 1000 H (0-900) /uL Eos # (Auto) 0 (0-450) /uL Baso # (Auto) 0 (0-100) /uL Sodium 134 L (137-145) mmol/L Potassium 3.6 (3.4-5.1) mmol/L Chloride 104 (98-107) mmol/L Carbon Dioxide 22 (22-32) mmol/L BUN 42 H (7-17) mg/dL Creatinine 2.19 H (0.52-1.04) mg/dL Estimated GFR 21.3 L (>60) mL/min BUN/Creatinine Ratio 19.2 (6-22) Glucose 267 H (80-110) mg/dL Calcium 8.8 (8.4-10.2) mg/dL Total Bilirubin 0.4 (0.2-1.3) mg/dL AST 27 (14-36) IU/L ALT 20 (<35) IU/L Alkaline Phosphatase 77 (38-126) U/L NT-Pro-B Natriuret Pep 7240 H (<450) pg/mL Total Protein 5.7 L (6.3-8.2) g/dL Albumin 3.2 L (3.5-5.0) g/dL Globulin 2.5 (1.7-4.1) g/dL Albumin/Globulin Ratio 1.3 (1.0-2.8) Lipase 288 (23-300) U/L Imaging Data CT scan - abdomen/pelvis: Radiologist's Impression: Read by overnight radiologist nonaggressive appearing hypodense lesion within the proximal pancreas is probably a cyst. This will require follow-up for final report. Constipation. No other acute process in the abdomen or pelvis. MDM Narrative Medical decision making narrative: Appropriate for discharge home. Exam and imaging and laboratory studies reassuring. Pain is reproducible. Treatment plan is agreeable patient with vgen-yqe-pomawgw magnesium citrate and Fleet's enema as well as prescription for Carafate and Protonix. Referral for endoscopy for the stomach given. no respiratory complaints, pt at baseline bnp Discharge Plan Departure Patient Disposition: Home Clinical Impression: Acute epigastric pain Instructions: DI for Abdominal Pain-Adult, DI for Constipation Activity Restrictions/Additional Instructions: See family doctor within a week for recheck and for follow-up imaging regarding cyst on the pancreas. Call provided general surgery office today to schedule endoscopy of the stomach. May take pzkg-lmh-dewhpvr magnesium citrate and Fleet's enema for constipation. Prescriptions have been sent to your pharmacy to help 4 year abdominal pain. Return if worse if any questions or concerns Prescriptions: No Action ezetimibe [Zetia] 10 MG tablet 10 mg PO DAILY Qty: 0 RF: 0 insulin lispro [Humalog U-100 Insulin] 100 UNIT/1 ML solution See Protocol sliding scale dose SUBCUT DIRECTED PRN (Reason: sliding scale) Qty: 0 RF: 0 allopurinol [Zyloprim] 100 mg tablet 300 mg PO DAILY RF: 0 levothyroxine [Synthroid] 125 mcg tablet 125 mcg PO DAILY RF: 0 colchicine [Colcrys] 0.6 mg Tablet See Rx Instructions .ROUTE .COMPLEX MDD 3 tab PRN (Reason: Gout) RF: 0 amlodipine [Norvasc] 5 mg tablet 10 mg PO DAILY RF: 0 rosuvastatin 10 mg tablet 5 mg PO BEDTIME RF: 0 pantoprazole 20 mg tablet,delayed release (DR/EC) 40 mg PO DAILY@0700,2100 RF: 0 amiodarone 200 mg Tablet 200 mg PO DAILY RF: 0 (DME) FreeStyle Thomas 14 Day Sensor Kit MISCELLANEOUS RF: 0 acetaminophen [Tylenol] 325 mg Tablet 325 mg PO PRN PRN (Reason: pain) RF: 0 Lantus Solostar U-100 Insulin 100 unit/mL (3 mL) insulin pen 14 unit SUBCUT QPM RF: 0 furosemide [Lasix] 20 mg tablet 40 mg PO BID RF: 0 potassium chloride [Klor-Con M20] 20 mEq Tablet,Er Particles/Crystals 20 meq PO DAILYCC Qty: 60 RF: 1 hydralazine 25 mg Tablet 25 mg PO Q8HR Qty: 60 RF: 3 Lantus Solostar U-100 Insulin 100 unit/mL (3 mL) Insulin Pen 10 unit SUBCUT DAILY Qty: 3 RF: 0 prednisone 20 mg Tablet 20 mg PO DAILY Qty: 100 RF: 0 Referrals: Benigno Mahan MD [Primary Care Provider] -
--- NOTE | 2020-11-12 02:52 | DI.CT.S_ITS ---
PROCEDURE: CT ABDOMEN PELVIS WO CON INDICATIONS: abdominal pain TECHNIQUE: Noncontrast 5 mm thick sections acquired from the diaphragms to the symphysis. 5 mm coronal and sagittal reformats were then performed. For radiation dose reduction, the following was used: automated exposure control, adjustment of mA and/or kV according to patient size. COMPARISON: Merged With [facility], CT, CT ANGIO CHEST PE PROTOCOL, 06/08/2020, 13:38. Merged With [facility], CT, CT ABDOMEN PELVIS WO CON, 09/05/2018, 9:30. FINDINGS: ABDOMEN: Lung bases: Scattered subsegmental atelectasis and/or scarring. No focal consolidation. Trace left pleural fluid. Heart: Mildly enlarged. No pericardial effusion. Coronary artery atheromatous plaque Liver: Normal. Gallbladder: Surgically absent. Bile ducts: Normal. Pancreas: Within the head/body of the pancreas, there is a 1.2 x 1.9 cm low-attenuation lesion, possibly cystic which is technically indeterminate however new since 09/05/18 and warrants follow-up. Spleen: Normal. Adrenals: Normal. Kidneys and Ureters: Bilateral renal vascular calcifications. No hydronephrosis. Cortical scarring and mild atrophy seen bilaterally. Ureters appeared non dilated. Stomach and duodenum: Normal. Bowel: Normal appendix. No evidence of bowel obstruction. Colonic diverticulosis is seen without evidence of acute complication. Other: No free fluid or air. Abdominal nodes: Normal. Aorta and IVC: Normal in size. Scattered vascular calcifications incidentally noted in the aorta. Ventral wall: Normal. PELVIS: Bladder: Normal. Inguinal region: No hernia. Pelvic nodes: Normal. Bones: Spondylytic changes and facet arthropathy. No vertebral body compression fracture. IMPRESSION: Overall, no acute abnormality Indeterminate low-attenuation/cystic lesion involving the pancreas which warrants follow-up with contrast enhanced pancreatic protocol MRI. This could reflect cystic neoplasm, versus cyst or pseudocyst. This finding new since the prior study from 09/05/18. Additional chronic/incidental findings as above. Findings concordant with preliminary study interpretation. Dictated by: Rupert Duffy M.D. on 11/12/2020 at 8:35 Approved by: Rupert Duffy M.D. on 11/12/2020 at 8:42
[2020-11-12] MEDS: ONDANSETRON 4 MG/2 ML INJ IV (02:57)
[2020-11-12] MEDS: MORPHINE 2 MG/ML INJ IV (02:57)
[2020-11-12 03:03] LABS: Add Manual Diff / Slide Review NO; Basophils Absolute Auto 0 /uL (0-100); Basophils Percent Auto 0.2 % (0-2); Eosinophils Absolute Auto 0 /uL (0-450); Hematocrit 27.7 % (36-46); Hemoglobin 8.9 g/dL (12.0-16.0); Lymphocytes Absolute Auto 300 /uL (1100-4500); Lymphocytes Percent Auto 3.2 % (25-40); Mean Corpuscular HGB Conc 32.1 % (30-36); Mean Corpuscular Hemoglobin 26.5 PG (26-34); Mean Corpuscular Volume 82.8 fL (80-100); Monocytes Absolute Auto 1000 /uL (0-900); Monocytes Percent Auto 10.3 % (3-14); Neutrophils Absolute Auto 8700 /uL (1500-7000); Neutrophils Percent Auto 86.3 % (50-75); Platelet Count 106 X10^3/uL (150-400); Red Blood Cell Count 3.34 X10^6/uL (4.0-5.2); Red Cell Distribution Width 17.8 % (11.6-14.8); White Blood Cell Count 10.1 X10^3/uL (4.5-11.0)
[2020-11-12 03:07] LABS: Alanine Aminotransferase 20 IU/L (<35); Albumin 3.2 g/dL (3.5-5.0); Albumin Globulin Ratio 1.3 (1.0-2.8); Alkaline Phosphatase 77 U/L (38-126); Aspartate Aminotransferase 27 IU/L (14-36); BUN Creatinine Ratio 19.2 (6-22); Bilirubin Total 0.4 mg/dL (0.2-1.3); Blood Urea Nitrogen 42 mg/dL (7-17); Calcium 8.8 mg/dL (8.4-10.2); Carbon Dioxide 22 mmol/L (22-32); Chloride 104 mmol/L (98-107); Estimated Glomerular Filt Rate 21.3 mL/min (>60); Globulin 2.5 g/dL (1.7-4.1); Glucose 267 mg/dL (80-110); HEMOLYSIS < 15 (0-50); Lipase 288 U/L (23-300); Potassium 3.6 mmol/L (3.4-5.1); Sodium 134 mmol/L (137-145); Total Protein 5.7 g/dL (6.3-8.2)
[2020-11-12 03:16] LABS: NT-proBNP (BNP-Adult 18+) 7240 pg/mL (<450)
[2020-11-12] MEDS: MAG HYDROX/ALUMINUM/SIMETH SUS 20 ML, LIDOCAINE VISCOUS 2% 15 ML PO (05:27)
[2020-11-12 05:56] VITALS: BP 129/61; PULSE 75; RESP 20; O2SAT 92
[2020-11-12] MEDS: PANTOPRAZOLE 40 MG VIAL IV (06:22)
[2020-11-12] MEDS: ONDANSETRON 4 MG ODT SL (06:56)
== END 2020-11-12 07:29 | disposition home or self-care (01) ==
PROVIDERS: Emergency Provider Emergency Medicine; PCP Family Medicine
DX: R10.13 Epigastric pain (principal)
CPT/HCPCS: 36415; 74176; 80053; 83690; 83880; 85025; C9113; J2270; J2405

== ENCOUNTER 2020-11-12 13:02 | Inpatient (IN) | payer MEDICARE, OTHER, SELFPAY ==
[2020-10-23 04:06] VITALS: BMI 26.6
[2020-11-12] VITALS (25 sets, daily range): BP systolic 90–156; BP diastolic 51–67; PULSE 76–86; RESP 16–35; TEMP 36.3–36.7; O2SAT 88–97; BMI 25.9; BMI 26.0
[2020-11-12] MEDS: ONDANSETRON 4 MG/2 ML INJ IV (13:27)
--- NOTE | 2020-11-12 13:56 | PC.NURSE ---
Addendum entered by Rhea August R.N. 11/12/20 15:59: Decreased oxygen saturations, lung sounds coarse throughout, increased O2 to 4L by NC. New orders placed. Addendum entered by Rhea August R.N. 11/12/20 15:14: MD aware of increase in WBC, no new orders. Original Note: Patient unsure of last void, daughter reported patient could have voided at midnight but does not believe patient voided since.
[2020-11-12 14:28] LABS: Add Manual Diff / Slide Review NO; Basophils Absolute Auto 0 /uL (0-100); Basophils Percent Auto 0.2 % (0-2); Eosinophils Absolute Auto 0 /uL (0-450); Hematocrit 29.8 % (36-46); Hemoglobin 9.4 g/dL (12.0-16.0); Lymphocytes Absolute Auto 400 /uL (1100-4500); Lymphocytes Percent Auto 1.9 % (25-40); Mean Corpuscular HGB Conc 31.5 % (30-36); Mean Corpuscular Hemoglobin 26.4 PG (26-34); Mean Corpuscular Volume 83.6 fL (80-100); Monocytes Absolute Auto 1500 /uL (0-900); Monocytes Percent Auto 7.4 % (3-14); Neutrophils Absolute Auto 18400 /uL (1500-7000); Neutrophils Percent Auto 90.5 % (50-75); Platelet Count 109 X10^3/uL (150-400); Red Blood Cell Count 3.56 X10^6/uL (4.0-5.2); Red Cell Distribution Width 17.8 % (11.6-14.8); White Blood Cell Count 20.3 X10^3/uL (4.5-11.0)
--- NOTE | 2020-11-12 14:30 | DI.RAD.S_ITS ---
PROCEDURE: XR CHEST 1V INDICATIONS: SOB, hypoxia TECHNIQUE: One view of the chest was acquired. COMPARISON: [facility], CR, XR CHEST 1V, 10/26/2020, 7:36. FINDINGS: Surgical changes and devices: None. Lungs and pleura: Patchy bilateral airspace consolidation, left greater than right, slightly improved. study. No pleural effusions or pneumothorax. Mediastinum: Mediastinal contours appear normal. Unchanged mild cardiomegaly. Bones and chest wall: No suspicious bony lesions. Overlying soft tissues appear unremarkable. IMPRESSION: 1. Mild cardiomegaly. 2. Patchy bilateral airspace consolidation is slightly improved relative to the previous Study. Dictated by: Monster Angeles M.D. on 11/12/2020 at 15:00 Approved by: Monster Angeles M.D. on 11/12/2020 at 15:13
--- NOTE | 2020-11-12 14:30 | DI.RAD.S_ITS ---
PROCEDURE: XR ABDOMEN MIN 2V INDICATIONS: abdominal pain TECHNIQUE: 2 views of the abdomen were acquired. COMPARISON: [facility], , ABDOMEN 1 VIEW, 12/05/2014, 14:11. FINDINGS: Surgical changes and devices: None. Bowel: No pneumoperitoneum. The bowel gas pattern is normal. Moderately large right colonic fecal debris. Soft tissues: No masses; visualized solid organ contours appear normal in size. No suspicious abdominal calcifications. Bones: No suspicious bony abnormalities. IMPRESSION: Moderately large right colonic fecal debris. Normal bowel gas pattern. Dictated by: Monster Angeles M.D. on 11/12/2020 at 15:13 Approved by: Monster Angeles M.D. on 11/12/2020 at 15:17
--- NOTE | 2020-11-12 14:33 | ED.ABDPAIN ---
HPI - Abdominal Pain General Chief Complaint: Upper Respiratory Symptoms Stated Complaint: Abd pain Time Seen by Provider: 11/12/20 13:29 Source: patient and EMS Mode of arrival: EMS History of Present Illness HPI narrative: 85-year-old female nonsmoker with history of CHF and atrial fibrillation returns by EMS for her 2nd evaluation today. She was discharged early this morning after a thorough evaluation and no significant findings. She was treated for acute epigastric pain and sent home with antiemetics. She went home and had ongoing vomiting and can not keep any of her medications down. She has worsening abdominal pain and is now become short of breath with even minimal exertion. She feels worse now than she did earlier. She denies any radiation of her pain and states it is worse when she moves and improves with rest. Related Data Home Medications Medication Instructions Recorded Confirmed ezetimibe 10 mg tablet (Zetia) 10 mg PO DAILY #0 10/16/12 10/23/20 insulin lispro 100 unit/mL See Protocol SUBCUT DIRECTED 05/31/16 10/23/20 subcutaneous solution (Humalog PRN #0 U-100 Insulin) allopurinol 100 mg tablet 300 mg PO DAILY 08/08/18 10/23/20 (Zyloprim) levothyroxine 125 mcg tablet 125 mcg PO DAILY 08/08/18 10/23/20 (Synthroid) colchicine 0.6 mg tablet (Colcrys) See Rx Instructions .ROUTE 01/28/19 10/23/20 .COMPLEX PRN MDD 3 tab acetaminophen 325 mg tablet 325 mg PO PRN PRN 05/28/19 10/23/20 (Tylenol) flash glucose sensor (FreeStyle 05/28/19 10/23/20 Thomas 14 Day Sensor) insulin glargine 100 unit/mL (3 14 unit SUBCUT QPM 05/28/19 10/23/20 mL) subcutaneous pen (Lantus Solostar U-100 Insulin) amlodipine 5 mg tablet (Norvasc) 10 mg PO DAILY 06/03/20 10/23/20 rosuvastatin 10 mg tablet 5 mg PO BEDTIME 06/03/20 10/23/20 furosemide 20 mg tablet (Lasix) 20 mg PO BID 07/13/20 10/23/20 Previous Rx's Medication Instructions Recorded potassium chloride 20 mEq 20 meq PO DAILYCC #60 tab 07/14/20 tablet,extended release(part/cryst) (Klor-Con M) cefuroxime axetil 250 mg tablet 250 mg PO BID #14 tab 10/29/20 doxycycline hyclate 100 mg tablet 100 mg PO BID #14 tab 10/29/20 hydralazine 25 mg tablet 25 mg PO Q8HR #60 tab 10/29/20 insulin glargine 100 unit/mL (3 10 unit SUBCUT DAILY #3 ml 10/29/20 mL) subcutaneous pen (Lantus Solostar U-100 Insulin) pantoprazole 20 mg tablet,delayed 20 mg PO DAILY@0700,2100 #30 tab 10/29/20 release prednisone 20 mg tablet 20 mg PO DAILY #100 tab 10/29/20 pantoprazole 40 mg tablet,delayed 40 mg PO DAILY #14 tab 11/12/20 release (Protonix) sucralfate 1 gram tablet (Carafate) 1 g PO BID #20 tab 11/12/20 Allergies Allergy/AdvReac Type Severity Reaction Status Date / Time kiwi Allergy Severe ANAPHYLAXIS Verified 11/12/20 13:05 Sulfa (Sulfonamide Allergy Severe unknown Verified 11/12/20 13:05 Antibiotics) meperidine AdvReac Severe I GO NUTS Verified 11/12/20 13:05 morphine AdvReac Severe DIZZY Verified 11/12/20 13:05 Review of Systems Review of Systems Narrative: GENERAL: Denies chills, fatigue, malaise, fever, sweats. HEENT: Denies sinus pain, ear pain, sore throat, difficulty swallowing, dizziness. RESPIRATORY: See HPI CARDIOVASCULAR: Denies chest pain, palpitations, orthopnea, edema, GASTROINTESTINAL: See HPI : Denies dysuria, frequency, incontinence, hematuria, urinary retention. MUSCULOSKELETAL: denies weakness, joint pain, or bony pain SKIN: Denies rash, skin lesions, or other NEUROLOGIC: Denies weakness, headache, numbness, change in speech, confusion, seizures, incoordination. PSYCHIATRIC: No concerning psychosocial issues. 12 point review of systems is negative except for those stated above Patient History Medical History CHF (congestive heart failure) HTN (hypertension) Hypoglycemia Palpitations Paroxysmal atrial fibrillation Stable angina Surgical History No pertinent past surgical history Family History Family/Other Diabetes mellitus Father Loud snoring Hypertension Heart disease Mother Hypertension Heart disease Family/Other Heart disease Hypertension Social History household members: children Smoking Status: Never smoker alcohol intake: current Smoking Status: Never smoker alcohol intake frequency: holidays/special occasions only Alcohol type: hard liquor Substance Use Type: does not use Exam Narrative Exam Narrative: GENERAL: [85] year old patient appears stated age. Well-developed patient, in mild distress. HEAD: Atraumatic. Normocephalic. EYES: Pupils equal round and reactive. Extraocular motions intact. No scleral icterus. No injection or drainage. ENT: Nose without bleeding, purulent drainage. Throat without erythema, tonsillar hypertrophy or exudate. Airway patent. NECK: Trachea midline. Non tender CARDIOVASCULAR: Regular rate and rhythm without murmurs, gallops, or rubs. RESPIRATORY: Increased work of breathing with crackles in bilateral bases GASTROINTESTINAL: Abdomen soft, generalized tenderness nondistended. EXTREMITIES: No edema or joint tenderness. BACK: Nontender without deformity or crepitance. No flank tenderness. NEURO: AOx3. SKIN: No rash or erythema of visible areas Initial Vital Signs Initial Vital Signs: Vital Signs Temperature 97.4 F L 11/12/20 13:05 Pulse Rate 85 11/12/20 13:05 Respiratory Rate 20 11/12/20 13:05 Blood Pressure 90/51 L 11/12/20 13:05 Pulse Oximetry 96 11/12/20 13:05 Course Course Course Narrative: 1600 - Called to see patient, with increased work of breathing, now on 4 L with pulse ox 88%, respiratory therapy consulted for he did high-flow nasal cannula and ABG Additional Information: patient resting comfortably and now doing better, still clearly will require hospitalization for stabilization and ongoing treatment Orders Ordered: ED Orders 11/12/20 13:20 Complete Blood Count AUTO DIFF Stat Comprehensive Metabolic Panel Stat Lipase Stat NT-proBNP (BNP-Adult 18+) Stat Troponin & CK Cardiac Panel Stat 11/12/20 14:30 XR abdomen min 2V Stat XR chest 1V Stat 11/12/20 14:45 Urinalysis and Microscopic Stat 11/12/20 14:48 COVID19 - ADMIT (PHLEBOTOMY PROGRAM COORDINATOR swab/PCR) Stat 11/12/20 15:33 EKG-12 Lead Stat 11/12/20 16:29 ABG [Arterial Blood Gas] Stat Fentanyl (Fentanyl 100 Mcg/2 Ml Inj) 26 mcg 0.35 mcg/kg (26 mcg) IV Q1HR PRN PRN Reason: Pain, Severe (7-10) Last Admin: 11/12/20 14:42 Dose: 26 mcg Documented by: [email or web address] Sodium Chloride (Normal Saline 0.9%) 1,000 mls @ 150 mls/hr IV CONT MARIAA Last Admin: 11/12/20 14:45 Dose: 150 mls/hr Documented by: [email or web address] Sodium Chloride (Normal Saline 0.9%) 1,000 mls @ 125 mls/hr IV CONT MARIAA Last Admin: 11/12/20 15:08 Dose: Not Given Documented by: HOLLEY Discontinued Medications Furosemide (Furosemide 40 Mg/4 Ml Vial) 40 mg IV NOW ONE Stop: 11/12/20 14:31 Last Admin: 11/12/20 14:42 Dose: 40 mg Documented by: [email or web address] Ceftriaxone Sodium 1,000 mg/ (Sodium Chloride) 100 mls @ 200 mls/hr IV NOW ONE Stop: 11/12/20 15:58 Last Infusion: 11/12/20 16:42 Dose: 0 mls/hr Documented by: Admin: 11/12/20 16:04 Dose: 200 mls/hr Documented by: HOLLEY Azithromycin 500 mg/ Dextrose 250 mls @ 250 mls/hr IV NOW ONE Stop: 11/12/20 15:58 Last Infusion: 11/12/20 18:01 Dose: 0 mls/hr Documented by: Admin: 11/12/20 16:36 Dose: 250 mls/hr Documented by: HOLLEY Ondansetron HCl (Ondansetron 4 Mg/2 Ml Inj) 4 mg IV NOW ONE Stop: 11/12/20 13:09 Last Admin: 11/12/20 13:27 Dose: 4 mg Documented by: MAKAYLA Vital Signs Vital signs: Vital Signs - 8 hr 11/12/20 13:05 11/12/20 14:00 11/12/20 14:31 Temperature 97.4 F L Pulse Rate 85 84 85 Respiratory Rate 20 Blood Pressure 90/51 L 143/62 H 135/60 Pulse Oximetry 96 91 93 11/12/20 15:00 11/12/20 15:30 11/12/20 16:00 Temperature Pulse Rate 85 85 86 Respiratory Rate 20 Blood Pressure 150/66 H 146/65 H 149/67 H Pulse Oximetry 96 90 L 88 L 11/12/20 16:40 11/12/20 17:19 11/12/20 17:30 Temperature Pulse Rate 84 80 79 Respiratory Rate 24 23 Blood Pressure 149/67 H 139/60 Pulse Oximetry 92 96 96 MDM - Abdominal Pain Lab Data Result diagrams: 11/12/20 13:20 11/12/20 13:20 Labs: Lab Results 11/12/20 11/12/20 11/12/20 Range/Units 13:20 13:20 13:20 WBC 20.3 H D (4.5-11.0) X10^3/uL RBC 3.56 L (4.0-5.2) X10^6/uL Hgb 9.4 L (12.0-16.0) g/dL Hct 29.8 L (36-46) % MCV 83.6 (80-100) fL MCH 26.4 (26-34) PG MCHC 31.5 (30-36) % RDW 17.8 H (11.6-14.8) % Plt Count 109 L (150-400) X10^3/uL Neut % (Auto) 90.5 H (50-75) % Lymph % (Auto) 1.9 L (25-40) % [place] % (Auto) 7.4 (3-14) % Eos % (Auto) 0.0 L (2-4) % Baso % (Auto) 0.2 (0-2) % Neut # (Auto) 98112 H (0946-6790) /uL Lymph # (Auto) 400 L (0676-7527) /uL [place] # (Auto) 1500 H (0-900) /uL Eos # (Auto) 0 (0-450) /uL Baso # (Auto) 0 (0-100) /uL ABG pH (7.35-7.45) ABG pCO2 (35-45) mmHg ABG pO2 (80-100) mmHg ABG HCO3 (22-26) mmol/L ABG Total CO2 (21-31) mmol/L ABG O2 Saturation (95-100) % ABG Base Excess (-2-2) mmol/L FiO2 Sodium 136 L (137-145) mmol/L Potassium 3.9 (3.4-5.1) mmol/L Chloride 103 (98-107) mmol/L Carbon Dioxide 23 (22-32) mmol/L BUN 44 H (7-17) mg/dL Creatinine 2.14 H (0.52-1.04) mg/dL Estimated GFR 21.8 L (>60) mL/min BUN/Creatinine Ratio 20.6 (6-22) Glucose 313 H (80-110) mg/dL Calcium 9.0 (8.4-10.2) mg/dL Total Bilirubin 0.6 (0.2-1.3) mg/dL AST 42 H (14-36) IU/L ALT 23 (<35) IU/L Alkaline Phosphatase 80 (38-126) U/L Total Creatine Kinase 25 L (30-135) U/L CK-MB (CK-2) TNP CK-MB (CK-2) Rel Index TNP Troponin I 0.144 H* (0.01-0.034) ng/mL NT-Pro-B Natriuret Pep 7940 H (<450) pg/mL Total Protein 5.9 L (6.3-8.2) g/dL Albumin 3.4 L (3.5-5.0) g/dL Globulin 2.5 (1.7-4.1) g/dL Albumin/Globulin Ratio 1.4 (1.0-2.8) Lipase 210 (23-300) U/L Urine Color Urine Appearance Urine pH (4.5-8.0) Ur Specific [place] (1.000-1.035) Urine Protein (Negative) Urine Glucose (UA) (Negative) g/dL Urine Ketones (NEGATIVE) Urine Occult Blood (Negative) Urine Nitrate (Negative) Urine Bilirubin (NEGATIVE) Urine Urobilinogen (0.2) E.U./dL Ur Leukocyte Esterase (NEGATIVE) Urine RBC (0-5/HPF) Urine WBC (0-5/HPF) Amorphous Sediment Urine Bacteria (None) Urine Yeast (None) Ur Culture Indicated? SARS-CoV-2 (PCR) (Negative) 11/12/20 11/12/20 11/12/20 Range/Units 14:45 14:48 16:29 WBC (4.5-11.0) X10^3/uL RBC (4.0-5.2) X10^6/uL Hgb (12.0-16.0) g/dL Hct (36-46) % MCV (80-100) fL MCH (26-34) PG MCHC (30-36) % RDW (11.6-14.8) % Plt Count (150-400) X10^3/uL Neut % (Auto) (50-75) % Lymph % (Auto) (25-40) % [place] % (Auto) (3-14) % Eos % (Auto) (2-4) % Baso % (Auto) (0-2) % Neut # (Auto) (7564-1070) /uL Lymph # (Auto) (8049-4985) /uL [place] # (Auto) (0-900) /uL Eos # (Auto) (0-450) /uL Baso # (Auto) (0-100) /uL ABG pH 7.43 (7.35-7.45) ABG pCO2 33.2 L (35-45) mmHg ABG pO2 59 L (80-100) mmHg ABG HCO3 22 (22-26) mmol/L ABG Total CO2 23 (21-31) mmol/L ABG O2 Saturation 91 L (95-100) % ABG Base Excess -2.0 (-2-2) mmol/L FiO2 36 Sodium (137-145) mmol/L Potassium (3.4-5.1) mmol/L Chloride (98-107) mmol/L Carbon Dioxide (22-32) mmol/L BUN (7-17) mg/dL Creatinine (0.52-1.04) mg/dL Estimated GFR (>60) mL/min BUN/Creatinine Ratio (6-22) Glucose (80-110) mg/dL Calcium (8.4-10.2) mg/dL Total Bilirubin (0.2-1.3) mg/dL AST (14-36) IU/L ALT (<35) IU/L Alkaline Phosphatase (38-126) U/L Total Creatine Kinase (30-135) U/L CK-MB (CK-2) CK-MB (CK-2) Rel Index Troponin I (0.01-0.034) ng/mL NT-Pro-B Natriuret Pep (<450) pg/mL Total Protein (6.3-8.2) g/dL Albumin (3.5-5.0) g/dL Globulin (1.7-4.1) g/dL Albumin/Globulin Ratio (1.0-2.8) Lipase (23-300) U/L Urine Color Yellow Urine Appearance Clear Urine pH 5.0 (4.5-8.0) Ur Specific [place] 1.020 (1.000-1.035) Urine Protein 2+ H (Negative) Urine Glucose (UA) Trace H (Negative) g/dL Urine Ketones Negative (NEGATIVE) Urine Occult Blood Negative (Negative) Urine Nitrate Negative (Negative) Urine Bilirubin Negative (NEGATIVE) Urine Urobilinogen 0.2 (0.2) E.U./dL Ur Leukocyte Esterase Negative (NEGATIVE) Urine RBC None seen (0-5/HPF) Urine WBC None seen (0-5/HPF) Amorphous Sediment 1+ Urine Bacteria None seen (None) Urine Yeast 1-5/hpf H (None) Ur Culture Indicated? Cult not indicated SARS-CoV-2 (PCR) Negative (Negative) Point of care testing: Urine Dip Bedside Urine Glucose Negative Bedside Urine Bilirubin - Negative Bedside Urine Ketone - Negative Urine Specific [place] 1.025 Bedside Urine Occult Blood - Negative Bedside Urine pH 6.0 Bedside Urine Protein + 30 Bedside Urine Urobilinogen - Negative Bedside Urine Nitrite - Negative Bedside Urine Leukocytes - Negative Esterase Imaging Data Chest x-ray: Radiologist's Impression: [address] [id number] ReportSigned Patient: Jackie Orta FMR#: [id number]: 5Acct:[id number]/Sex: 85 / FDate of Service: 11/12/20Loc: EDAccession Number: [id number] Procedure: XR chest 1V Ordering Provider: Albert Henderson D.O. PROCEDURE: XR CHEST 1V INDICATIONS: SOB, hypoxia TECHNIQUE: One view of the chest was acquired. COMPARISON: Located [facility], , XR CHEST 1V, 10/26/2020, 7:36. FINDINGS: Surgical changes and devices: None. Lungs and pleura: Patchy bilateral airspace consolidation, left greater than right, slightly improved. study. No pleural effusions or pneumothorax. Mediastinum: Mediastinal contours appear normal. Unchanged mild cardiomegaly. Bones and chest wall: No suspicious bony lesions. Overlying soft tissues appear unremarkable. IMPRESSION: 1. Mild cardiomegaly. 2. Patchy bilateral airspace consolidation is slightly improved relative to the previous Study. Dictated by: Monster Angeles M.D. on 11/12/2020 at 15:00 Approved by: Monster Angeles M.D. on 11/12/2020 at 15:13 Discharge Plan Departure Patient Disposition: Admitted As Inpatient Clinical Impression: Acute hypoxemic respiratory failure, Pneumonia, Acute CHF Admit Date/Time: 11/12/20 18:24
[2020-11-12 14:39] LABS: Alanine Aminotransferase 23 IU/L (<35); Albumin 3.4 g/dL (3.5-5.0); Albumin Globulin Ratio 1.4 (1.0-2.8); Alkaline Phosphatase 80 U/L (38-126); Aspartate Aminotransferase 42 IU/L (14-36); BUN Creatinine Ratio 20.6 (6-22); Bilirubin Total 0.6 mg/dL (0.2-1.3); Blood Urea Nitrogen 44 mg/dL (7-17); Carbon Dioxide 23 mmol/L (22-32); Chloride 103 mmol/L (98-107); Estimated Glomerular Filt Rate 21.8 mL/min (>60); Globulin 2.5 g/dL (1.7-4.1); Glucose 313 mg/dL (80-110); HEMOLYSIS < 15 (0-50); Lipase 210 U/L (23-300); Potassium 3.9 mmol/L (3.4-5.1); Sodium 136 mmol/L (137-145); Total Protein 5.9 g/dL (6.3-8.2)
[2020-11-12] MEDS: fentaNYL 100 MCG/2 ML INJ 26 MCG IV ×3 (14:42→20:40)
[2020-11-12] MEDS: FUROSEMIDE 40 MG/4 ML VIAL IV (14:42)
[2020-11-12] MEDS: SODIUM CHLORIDE 0.9% 1,000 ML 150 ML IV (14:45)
[2020-11-12 14:59] LABS: Bacteria Urine None Seen; RBC Urine None Seen (0-5/HPF); WBC Urine None Seen (0-5/HPF)
[2020-11-12 15:02] LABS: Appearance Urine UA CLEAR; Bilirubin Urine UA NEGATIVE (NEGATIVE); Color Urine UA YELLOW; Glucose Urine UA TRACE g/dL (Negative); Ketones Urine UA NEGATIVE (NEGATIVE); Leukocyte Esterase Urine UA NEGATIVE (NEGATIVE); Nitrite Urine UA NEGATIVE (Negative); Occult Blood Urine UA NEGATIVE (Negative); Protein Urine UA 2+ (Negative); Urobilinogen Urine UA 0.2 E.U./dL (0.2)
[2020-11-12 15:11] LABS: Amorphous Sediment Urine 1+
[2020-11-12 15:12] LABS: Culture Indicated Urine Cult Not Indicated
[2020-11-12 15:21] LABS: Creatine Kinase 25 U/L (30-135)
[2020-11-12 15:35] LABS: NT-proBNP (BNP-Adult 18+) 7940 pg/mL (<450)
[2020-11-12 15:41] LABS: Troponin I 0.144 ng/mL (0.01-0.034)
[2020-11-12] MEDS: cefTRIAXone 1,000 MG in SODIUM CHLORIDE 0.9% 100 ML 200 ML IV (16:04)
[2020-11-12 16:07] LABS: COVID19 - ADMIT (NP swab/PCR) Negative (Negative)
[2020-11-12] MEDS: AZITHROMYCIN 500 MG in DEXTROSE 5% IN WATER 250 ML IV (16:36)
[2020-11-12 16:41] LABS: Fractionated Inspired Oxygen 36; HCO3 ABG 22 mmol/L (22-26); Oxygen Saturation ABG 91 % (95-100); PCO2 ABG 33.2 mmHg (35-45); PO2 ABG 59 mmHg (80-100); TCO2 ABG 23 mmol/L (21-31); pH ABG 7.43 (7.35-7.45)
--- NOTE | 2020-11-12 19:17 | P.HP_ITS ---
History of Present Illness History of Present Illness Date Patient Seen: 11/12/20 Time Patient Seen: 19:18 Chief complaint: Abd pain Patient History Medical History CHF (congestive heart failure) HTN (hypertension) Hypoglycemia Palpitations Paroxysmal atrial fibrillation Stable angina Surgical History No pertinent past surgical history Family & Social History Family History Family/Other Diabetes mellitus Father Loud snoring Hypertension Heart disease Mother Hypertension Heart disease Family/Other Heart disease Hypertension Social History: household members children Safety & Behavioral: Feels Safe in Current Yes Environment Been Physically Hurt or No Threatened By a Person Tobacco & Substance use: Smoking Status Never smoker alcohol intake current alcohol intake frequency holiday/special occasion Substance Use Type does not use Meds Home Medications and Allergies Home Medications Medication Instructions Recorded Confirmed Type ezetimibe 10 mg tablet (Zetia) 10 mg PO DAILY #0 10/16/12 10/23/20 History insulin lispro 100 unit/mL See Protocol SUBCUT DIRECTED 05/31/16 10/23/20 History subcutaneous solution (Humalog PRN #0 U-100 Insulin) allopurinol 100 mg tablet 300 mg PO DAILY 08/08/18 10/23/20 History (Zyloprim) levothyroxine 125 mcg tablet 125 mcg PO DAILY 08/08/18 10/23/20 History (Synthroid) colchicine 0.6 mg tablet (Colcrys) See Rx Instructions .ROUTE 01/28/19 10/23/20 History .COMPLEX PRN MDD 3 tab acetaminophen 325 mg tablet 325 mg PO PRN PRN 05/28/19 10/23/20 History (Tylenol) flash glucose sensor (FreeStyle 05/28/19 10/23/20 History Thomas 14 Day Sensor) insulin glargine 100 unit/mL (3 14 unit SUBCUT QPM 05/28/19 10/23/20 History mL) subcutaneous pen (Lantus Solostar U-100 Insulin) amlodipine 5 mg tablet (Norvasc) 10 mg PO DAILY 06/03/20 10/23/20 History rosuvastatin 10 mg tablet 5 mg PO BEDTIME 06/03/20 10/23/20 History furosemide 20 mg tablet (Lasix) 20 mg PO BID 07/13/20 10/23/20 History potassium chloride 20 mEq 20 meq PO DAILYCC #60 tab 07/14/20 10/23/20 Rx tablet,extended release(part/cryst) (Klor-Con M) cefuroxime axetil 250 mg tablet 250 mg PO BID #14 tab 10/29/20 Rx doxycycline hyclate 100 mg tablet 100 mg PO BID #14 tab 10/29/20 Rx hydralazine 25 mg tablet 25 mg PO Q8HR #60 tab 10/29/20 Rx insulin glargine 100 unit/mL (3 10 unit SUBCUT DAILY #3 ml 10/29/20 Rx mL) subcutaneous pen (Lantus Solostar U-100 Insulin) pantoprazole 20 mg tablet,delayed 20 mg PO DAILY@0700,2100 #30 tab 10/29/20 Rx release prednisone 20 mg tablet 20 mg PO DAILY #100 tab 10/29/20 Rx pantoprazole 40 mg tablet,delayed 40 mg PO DAILY #14 tab 11/12/20 Rx release (Protonix) sucralfate 1 gram tablet (Carafate) 1 g PO BID #20 tab 11/12/20 Rx Allergies Allergy/AdvReac Type Severity Reaction Status Date / Time kiwi Allergy Severe ANAPHYLAXIS Verified 11/12/20 13:05 Sulfa (Sulfonamide Allergy Severe unknown Verified 11/12/20 13:05 Antibiotics) meperidine AdvReac Severe I GO NUTS Verified 11/12/20 13:05 morphine AdvReac Severe DIZZY Verified 11/12/20 13:05 Exam Vital Signs (past 8 hours): - 11/12/20 13:05 11/12/20 14:00 11/12/20 14:31 Temperature 97.4 F L Pulse Rate 85 84 85 Respiratory Rate 20 Blood Pressure 90/51 L 143/62 H 135/60 Pulse Oximetry 96 91 93 11/12/20 15:00 11/12/20 15:30 11/12/20 16:00 Temperature Pulse Rate 85 85 86 Respiratory Rate 20 Blood Pressure 150/66 H 146/65 H 149/67 H Pulse Oximetry 96 90 L 88 L 11/12/20 16:40 11/12/20 17:19 11/12/20 17:30 Temperature Pulse Rate 84 80 79 Respiratory Rate 24 23 Blood Pressure 149/67 H 139/60 Pulse Oximetry 92 96 96 Oxygen Delivery Method High Flow Nasal Cannula Oxygen Flow Rate 60 Objective Labs Result Diagrams: 11/12/20 13:20 11/12/20 13:20 Labs: Laboratory Results - last 24 hr 11/12/20 11/12/20 11/12/20 13:20 13:20 13:20 WBC 20.3 H D RBC 3.56 L Hgb 9.4 L Hct 29.8 L MCV 83.6 MCH 26.4 MCHC 31.5 RDW 17.8 H Plt Count 109 L Neut % (Auto) 90.5 H Lymph % (Auto) 1.9 L [place] % (Auto) 7.4 Eos % (Auto) 0.0 L Baso % (Auto) 0.2 Neut # (Auto) 20641 H Lymph # (Auto) 400 L [place] # (Auto) 1500 H Eos # (Auto) 0 Baso # (Auto) 0 ABG pH ABG pCO2 ABG pO2 ABG HCO3 ABG Total CO2 ABG O2 Saturation ABG Base Excess FiO2 Sodium 136 L Potassium 3.9 Chloride 103 Carbon Dioxide 23 BUN 44 H Creatinine 2.14 H Estimated GFR 21.8 L BUN/Creatinine Ratio 20.6 Glucose 313 H Calcium 9.0 Total Bilirubin 0.6 AST 42 H ALT 23 Alkaline Phosphatase 80 Total Creatine Kinase 25 L CK-MB (CK-2) TNP CK-MB (CK-2) Rel Index TNP Troponin I 0.144 H* NT-Pro-B Natriuret Pep 7940 H Total Protein 5.9 L Albumin 3.4 L Globulin 2.5 Albumin/Globulin Ratio 1.4 Lipase 210 Urine Color Urine Appearance Urine pH Ur Specific [place] Urine Protein Urine Glucose (UA) Urine Ketones Urine Occult Blood Urine Nitrate Urine Bilirubin Urine Urobilinogen Ur Leukocyte Esterase Urine RBC Urine WBC Amorphous Sediment Urine Bacteria Urine Yeast Ur Culture Indicated? SARS-CoV-2 (PCR) 11/12/20 11/12/20 11/12/20 14:45 14:48 16:29 WBC RBC Hgb Hct MCV MCH MCHC RDW Plt Count Neut % (Auto) Lymph % (Auto) [place] % (Auto) Eos % (Auto) Baso % (Auto) Neut # (Auto) Lymph # (Auto) [place] # (Auto) Eos # (Auto) Baso # (Auto) ABG pH 7.43 ABG pCO2 33.2 L ABG pO2 59 L ABG HCO3 22 ABG Total CO2 23 ABG O2 Saturation 91 L ABG Base Excess -2.0 FiO2 36 Sodium Potassium Chloride Carbon Dioxide BUN Creatinine Estimated GFR BUN/Creatinine Ratio Glucose Calcium Total Bilirubin AST ALT Alkaline Phosphatase Total Creatine Kinase CK-MB (CK-2) CK-MB (CK-2) Rel Index Troponin I NT-Pro-B Natriuret Pep Total Protein Albumin Globulin Albumin/Globulin Ratio Lipase Urine Color Yellow Urine Appearance Clear Urine pH 5.0 Ur Specific [place] 1.020 Urine Protein 2+ H Urine Glucose (UA) Trace H Urine Ketones Negative Urine Occult Blood Negative Urine Nitrate Negative Urine Bilirubin Negative Urine Urobilinogen 0.2 Ur Leukocyte Esterase Negative Urine RBC None seen Urine WBC None seen Amorphous Sediment 1+ Urine Bacteria None seen Urine Yeast 1-5/hpf H Ur Culture Indicated? Cult not indicated SARS-CoV-2 (PCR) Negative
--- NOTE | 2020-11-12 19:39 | PM.HP.1 ---
History of Present Illness History of Present Illness Date Patient Seen: 11/12/20 Time Patient Seen: 19:39 Chief complaint: Abd pain Narrative: 85 year-old female presents to the ED twice in 1 day secondary to worsening right upper quadrant abdominal pain, diarrhea, nausea, and the inability to keep anything down. She has become increasingly short of breath. Yesterday, she sat down on the kick stand of her recliner and because it could not support her weight, she fell forward onto the floor, onto her shins. She has bruising from her fall. She did not lose consciousness or hit her head. Denies chest pain. Her right upper quadrant is very bad and nonradiating. The edema in her legs has worsened and is now weeping. Vital signs upon second admission to the ED included a temperature of 97.2?, pulse 85, respirations 20, blood pressure 90/51, O2 saturation 96% on room air. Workup significant for an elevated BNP 7940 (baseline 1300), anemia wtih a hemoglobin/hematocrit of 9.4/29.8, new thrombocytopenia at 106, and an elevated BUN/creatinine of 44/2.1 (up from baseline). Troponin I also elevated at 0.144. Glucose 313. Imaging studies notable for consolidation on chest x-ray and a new 1.2 x 1.[address] pancreatic lesion on CT; differential diagnosis includes neoplasm, cyst, or pseudocyst. Initially, patient was unable to maintain oxygen saturation above 88% on 4 L and was having increased work of breathing. She was switched to high-flow oxygen and arterial blood gas showed a respiratory alkalosis with a non-anion gap metabolic acidosis. She was given 40 mg of IV Lasix, 2 doses of IV fentanyl, Zofran, Rocephin, azithromycin, and normal saline and is now feeling better but still requires significant oxygen support. She has previously been DNR/ DNI but she does report that she would want to be intubated tonight for respiratory support if needed. She does not want chest compressions. She is currently on telemetry and in a normal sinus rhythm, rate controlled. Past medical history: Diabetes mellitus type 2 Hypertension Hyperlipidemia Atrial fibrillation Hypothyroidism Polymyalgia rheumatica Migraine Depression IBS Past surgical history: Partial hysterectomy Cholecystectomy Family history: Father: PR, coronary artery disease, hypertension Mother: Alcoholism, heart disease Siblings: Heart disease, depression, hyperlipidemia Social history: Retired. Patient History Medical History CHF (congestive heart failure) HTN (hypertension) Hypoglycemia Palpitations Paroxysmal atrial fibrillation Stable angina Surgical History No pertinent past surgical history Family & Social History Family History Family/Other Diabetes mellitus Father Loud snoring Hypertension Heart disease Mother Hypertension Heart disease Family/Other Heart disease Hypertension Social History: household members children Safety & Behavioral: Feels Safe in Current Yes Environment Been Physically Hurt or No Threatened By a Person Tobacco & Substance use: Smoking Status Never smoker alcohol intake current alcohol intake frequency holiday/special occasion Substance Use Type does not use Meds Home Medications and Allergies Home Medications Medication Instructions Recorded Confirmed Type ezetimibe 10 mg tablet (Zetia) 10 mg PO DAILY #0 10/16/12 10/23/20 History insulin lispro 100 unit/mL See Protocol SUBCUT DIRECTED 05/31/16 10/23/20 History subcutaneous solution (Humalog PRN #0 U-100 Insulin) allopurinol 100 mg tablet 300 mg PO DAILY 08/08/18 10/23/20 History (Zyloprim) levothyroxine 125 mcg tablet 125 mcg PO DAILY 08/08/18 10/23/20 History (Synthroid) colchicine 0.6 mg tablet (Colcrys) See Rx Instructions .ROUTE 01/28/19 10/23/20 History .COMPLEX PRN MDD 3 tab acetaminophen 325 mg tablet 325 mg PO PRN PRN 05/28/19 10/23/20 History (Tylenol) flash glucose sensor (FreeStyle 05/28/19 10/23/20 History Thomas 14 Day Sensor) insulin glargine 100 unit/mL (3 14 unit SUBCUT QPM 05/28/19 10/23/20 History mL) subcutaneous pen (Lantus Solostar U-100 Insulin) amlodipine 5 mg tablet (Norvasc) 10 mg PO DAILY 06/03/20 10/23/20 History rosuvastatin 10 mg tablet 5 mg PO BEDTIME 06/03/20 10/23/20 History furosemide 20 mg tablet (Lasix) 20 mg PO BID 07/13/20 10/23/20 History potassium chloride 20 mEq 20 meq PO DAILYCC #60 tab 07/14/20 10/23/20 Rx tablet,extended release(part/cryst) (Klor-Con M) cefuroxime axetil 250 mg tablet 250 mg PO BID #14 tab 10/29/20 Rx doxycycline hyclate 100 mg tablet 100 mg PO BID #14 tab 10/29/20 Rx hydralazine 25 mg tablet 25 mg PO Q8HR #60 tab 10/29/20 Rx insulin glargine 100 unit/mL (3 10 unit SUBCUT DAILY #3 ml 10/29/20 Rx mL) subcutaneous pen (Lantus Solostar U-100 Insulin) pantoprazole 20 mg tablet,delayed 20 mg PO DAILY@0700,2100 #30 tab 10/29/20 Rx release prednisone 20 mg tablet 20 mg PO DAILY #100 tab 10/29/20 Rx pantoprazole 40 mg tablet,delayed 40 mg PO DAILY #14 tab 11/12/20 Rx release (Protonix) sucralfate 1 gram tablet (Carafate) 1 g PO BID #20 tab 11/12/20 Rx Allergies Allergy/AdvReac Type Severity Reaction Status Date / Time kiwi Allergy Severe ANAPHYLAXIS Verified 11/12/20 13:05 Sulfa (Sulfonamide Allergy Severe unknown Verified 11/12/20 13:05 Antibiotics) meperidine AdvReac Severe I GO NUTS Verified 11/12/20 13:05 morphine AdvReac Severe DIZZY Verified 11/12/20 13:05 Exam Vital Signs (past 8 hours): - 11/12/20 13:05 11/12/20 14:00 11/12/20 14:31 Temperature 97.4 F L Pulse Rate 85 84 85 Respiratory Rate 20 Blood Pressure 90/51 L 143/62 H 135/60 Pulse Oximetry 96 91 93 11/12/20 15:00 11/12/20 15:30 11/12/20 16:00 Temperature Pulse Rate 85 85 86 Respiratory Rate 20 Blood Pressure 150/66 H 146/65 H 149/67 H Pulse Oximetry 96 90 L 88 L 11/12/20 16:40 11/12/20 17:19 11/12/20 17:30 Temperature Pulse Rate 84 80 79 Respiratory Rate 24 23 Blood Pressure 149/67 H 139/60 Pulse Oximetry 92 96 96 Oxygen Delivery Method High Flow Nasal Cannula Oxygen Flow Rate 60 Narrative Exam Narrative: GENERAL: Alert and oriented, able to answer questions but extremely fatigued, appearing stated age and in acute respiratory distress. HEENT: Head normocephalic/atraumatic. LUNGS: bilateral expiratory wheezes, coarse. Crackles in bilateral bases. CV: Normal S1 and S2 with regular rate and rhythm, no audible murmurs, rubs or gallops. ABDOMEN: Soft, nondistended. Exquisitely tender in the right upper quadrant, does not tolerate even the slightest touch , positive guarding. organomegaly not assessed. Hypoactive bowel sounds. EXTREMITIES/SKIN: 4+ weeping edema to level of bilateral knees. Bilateral bullous contusions, violaceous, shins. NEURO: Cranial nerves II through XII grossly intact, no focal deficits. PSYCH: Alert and oriented x 3. Objective Labs Result Diagrams: 11/13/20 05:21 11/13/20 01:27 Labs: Laboratory Results - last 24 hr 11/12/20 11/12/20 11/12/20 13:20 13:20 13:20 WBC 20.3 H D RBC 3.56 L Hgb 9.4 L Hct 29.8 L MCV 83.6 MCH 26.4 MCHC 31.5 RDW 17.8 H Plt Count 109 L Neut % (Auto) 90.5 H Lymph % (Auto) 1.9 L [place] % (Auto) 7.4 Eos % (Auto) 0.0 L Baso % (Auto) 0.2 Neut # (Auto) 26401 H Lymph # (Auto) 400 L [place] # (Auto) 1500 H Eos # (Auto) 0 Baso # (Auto) 0 ABG pH ABG pCO2 ABG pO2 ABG HCO3 ABG Total CO2 ABG O2 Saturation ABG Base Excess FiO2 Sodium 136 L Potassium 3.9 Chloride 103 Carbon Dioxide 23 BUN 44 H Creatinine 2.14 H Estimated GFR 21.8 L BUN/Creatinine Ratio 20.6 Glucose 313 H Calcium 9.0 Total Bilirubin 0.6 AST 42 H ALT 23 Alkaline Phosphatase 80 Total Creatine Kinase 25 L CK-MB (CK-2) TNP CK-MB (CK-2) Rel Index TNP Troponin I 0.144 H* NT-Pro-B Natriuret Pep 7940 H Total Protein 5.9 L Albumin 3.4 L Globulin 2.5 Albumin/Globulin Ratio 1.4 Lipase 210 Urine Color Urine Appearance Urine pH Ur Specific [place] Urine Protein Urine Glucose (UA) Urine Ketones Urine Occult Blood Urine Nitrate Urine Bilirubin Urine Urobilinogen Ur Leukocyte Esterase Urine RBC Urine WBC Amorphous Sediment Urine Bacteria Urine Yeast Ur Culture Indicated? SARS-CoV-2 (PCR) 11/12/20 11/12/20 11/12/20 14:45 14:48 16:29 WBC RBC Hgb Hct MCV MCH MCHC RDW Plt Count Neut % (Auto) Lymph % (Auto) [place] % (Auto) Eos % (Auto) Baso % (Auto) Neut # (Auto) Lymph # (Auto) [place] # (Auto) Eos # (Auto) Baso # (Auto) ABG pH 7.43 ABG pCO2 33.2 L ABG pO2 59 L ABG HCO3 22 ABG Total CO2 23 ABG O2 Saturation 91 L ABG Base Excess -2.0 FiO2 36 Sodium Potassium Chloride Carbon Dioxide BUN Creatinine Estimated GFR BUN/Creatinine Ratio Glucose Calcium Total Bilirubin AST ALT Alkaline Phosphatase Total Creatine Kinase CK-MB (CK-2) CK-MB (CK-2) Rel Index Troponin I NT-Pro-B Natriuret Pep Total Protein Albumin Globulin Albumin/Globulin Ratio Lipase Urine Color Yellow Urine Appearance Clear Urine pH 5.0 Ur Specific [place] 1.020 Urine Protein 2+ H Urine Glucose (UA) Trace H Urine Ketones Negative Urine Occult Blood Negative Urine Nitrate Negative Urine Bilirubin Negative Urine Urobilinogen 0.2 Ur Leukocyte Esterase Negative Urine RBC None seen Urine WBC None seen Amorphous Sediment 1+ Urine Bacteria None seen Urine Yeast 1-5/hpf H Ur Culture Indicated? Cult not indicated SARS-CoV-2 (PCR) Negative Assessment & Plan Assessment & Plan narrative: 1. Acute hypoxic respiratory failure secondary to CAP and heart failure with preserved ejection fraction Plan: Continue high-flow oxygen support tonight. Patient may need intubation and she is okay with that. She has already received Lasix x1 and is putting out good urine, approximately 1000 cc since admission. Breathing improved; will follow closely and repeat if needed. Will continue antibiotics for her pneumonia and trend her cardiac enzymes. 2. Heart failure with preserved ejection fraction, chronic Plan: Will repeat BNP in the morning, furosemide as needed. 3. Community-acquired pneumonia, new Plan: Will continue azithromycin and ceftriaxone, oxygen support, supportive therapy. 4. Rule out PR PLan: will trend cardiac enzymes, continue telemetry. 5. Pancreatic mass, new Plan: Pancreatic protocol MRI. 6. Right upper quadrant pain, acute Plan: Possibly from pancreatic mass versus constipation. Will start stool softeners and await MRI results. Fentanyl support in the meantime. 7. Acute dehydration from diarrhea and nausea Plan: Rehydrating with IVF, will follow labs. 8. Constipation, acute Plan: Fluids, stools softeners. 9. Thrombocytopenia, new -Platelets 106-109 Plan: interesting finding in setting of new pancreatic mass, will repeat CBC in the morning and proceed with further workup if needed. 10. Atrial Fibrillation, paroxysmal Plan: Patient is currently in sinus and rate controlled, will continue home medications. Patient is a fall risk so does not appear to be on anticoagulation. 11. Anemia normocytic/normochromic, likely due to chronic disease Plan: Will treat underlying disease. 12. Hypothyroidism, chronic, uncontrolled at time of admission Plan: Continue home levothyroxine. 13. Diabetes mellitus type 2, insulin dependent Plan: Continue home Lantus/novolog. 14. Acute on chronic kidney disease, Stage 3, Plan: Will keep blood pressure well controlled and follow labs. 15. Polymyalgia rheumatica Plan: Continue home prednisone 8 mg p.o. q.day. 16. Gout Plan: Continue home allopurinol. 17. Hypertension Plan: Continue home medications. 18. Hyperlipidemia Plan: Continue home medications. 19. Weeping edema with bilateral lower leg contusions. Plan: Supportive therapy, treating underlying disease. 20. Fall risk Plan: PT/OT. DVT prophylaxis: SCDs COVID: Negative Code: Limited code with intubtion if required, no chest compressions
--- NOTE | 2020-11-12 21:37 | PC.NURSE ---
Addendum entered by Vivian Christie R.N. 11/12/20 23:46: Called Dr. Hood. Clarified orders for IVF and pain meds. Obtained order for insulin dose tonight. Troponin critical lab value. Dr. Hood informed, 12-lead EKG ordered STAT. Original Note: Admission 2119: Report received, pt to acute care 2119, care assumed. A&Ox4. Heated high-marisel oxygen 50l/min, FiO2 67%. Pain 5/10 in right side of abdomen, extremely tender to touch and movement. Tele, AFib, controlled rate. Multiple bruises, very loose, fragile skin. 3+ pitting edema BLE. Blood glucose per pt's own monitor 303.
[2020-11-12 21:40] LABS: HCO3 VBG 23 mmol/L (23-28); Oxygen Saturation VBG 84 % (70-75); PCO2 VBG 35.1 mmHg (45-50); PO2 VBG 47 mmHg (35-45); Total CO2 VBG 24 mmol/L (24-29); pH VBG 7.42 (7.33-7.43)
[2020-11-12] MEDS: SODIUM CHLORIDE 0.9% 1,000 ML 75 ML IV (22:56)
[2020-11-12 23:23] LABS: Troponin I 0.397 ng/mL (0.01-0.034)
[2020-11-13] VITALS (16 sets, daily range): BP systolic 113–145; BP diastolic 42–71; PULSE 72–84; RESP 15–21; TEMP 36.7–37.3; O2SAT 94–99
[2020-11-13] MEDS: INSULIN GLARGINE 100 UNIT/ML 3ML PEN 6 UNIT SUBCUT (00:31)
[2020-11-13 01:50] LABS: Magnesium 2.2 mg/dL (1.6-2.3)
[2020-11-13 01:58] LABS: Phosphorous 4.2 mg/dL (2.8-4.1)
[2020-11-13 02:00] LABS: NT-proBNP (BNP-Adult 18+) 16200 pg/mL (<450)
--- NOTE | 2020-11-13 02:10 | PC.NURSE ---
Patient had EKG with critical changes called to Dr. Hood. Stat labs ordered and to stop IVF. Labs drawn, fluid stopped. Awaiting lab results to notify provider.
[2020-11-13 02:11] LABS: Alanine Aminotransferase 16 IU/L (<35); Albumin 2.8 g/dL (3.5-5.0); Albumin Globulin Ratio 1.2 (1.0-2.8); Alkaline Phosphatase 70 U/L (38-126); Aspartate Aminotransferase 24 IU/L (14-36); BUN Creatinine Ratio 21.5 (6-22); Bilirubin Total 0.4 mg/dL (0.2-1.3); Blood Urea Nitrogen 40 mg/dL (7-17); Calcium 8.4 mg/dL (8.4-10.2); Carbon Dioxide 24 mmol/L (22-32); Chloride 108 mmol/L (98-107); Estimated Glomerular Filt Rate 25.7 mL/min (>60); Globulin 2.3 g/dL (1.7-4.1); Glucose 312 mg/dL (80-110); HEMOLYSIS < 15 (0-50); Potassium 3.6 mmol/L (3.4-5.1); Sodium 136 mmol/L (137-145); Total Protein 5.1 g/dL (6.3-8.2)
[2020-11-13] MEDS: IBUPROFEN 600 MG TABLET PO (05:41)
[2020-11-13 05:58] LABS: Add Manual Diff / Slide Review NO; Basophils Absolute Auto 0 /uL (0-100); Basophils Percent Auto 0.1 % (0-2); Eosinophils Absolute Auto 0 /uL (0-450); Eosinophils Percent Auto 0.1 % (2-4); Hematocrit 27.5 % (36-46); Hemoglobin 8.6 g/dL (12.0-16.0); Lymphocytes Absolute Auto 400 /uL (1100-4500); Lymphocytes Percent Auto 1.9 % (25-40); Mean Corpuscular HGB Conc 31.4 % (30-36); Mean Corpuscular Hemoglobin 26.4 PG (26-34); Mean Corpuscular Volume 84.1 fL (80-100); Monocytes Absolute Auto 900 /uL (0-900); Monocytes Percent Auto 4.3 % (3-14); Neutrophils Absolute Auto 19200 /uL (1500-7000); Neutrophils Percent Auto 93.6 % (50-75); Platelet Count 103 X10^3/uL (150-400); Red Blood Cell Count 3.27 X10^6/uL (4.0-5.2); Red Cell Distribution Width 17.9 % (11.6-14.8); White Blood Cell Count 20.5 X10^3/uL (4.5-11.0)
[2020-11-13 06:07] LABS: Lactate (Lactic Acid) 1.2 mmol/L (0.7-2.1)
[2020-11-13 06:20] LABS: Troponin I 0.536 ng/mL (0.01-0.034)
--- NOTE | 2020-11-13 07:52 | RT ---
pt asleep, no distress noted at this time and fio2 titrated down to 45 %. Bag mask unit functional at bedside
[2020-11-13] MEDS: FUROSEMIDE 40 MG/4 ML VIAL IV ×2 (08:00→13:19)
--- NOTE | 2020-11-13 08:37 | DI.US.S_ITS ---
PROCEDURE: US ABDOMEN COMPLETE INDICATIONS: RIGHT UPPER QUADRANT PAIN TECHNIQUE: Real-time scanning was performed of the abdominal and retroperitoneal organs, with image documentation. COMPARISON: [facility], CT, CT ABDOMEN PELVIS WO CON, 09/05/2018, 9:30. [facility], CT, CT ABDOMEN PELVIS WO CON, 11/12/2020, 2:58. FINDINGS: Liver: Normal appendix parenchymal echogenicity and echotexture. No obvious focal hepatic mass, with limited visualization of the liver due to patient reported pain with scanning. Gallbladder: Status post cholecystectomy. Biliary ducts: Mild enlargement of the intrahepatic and extrahepatic biliary ducts, likely a function of post cholecystectomy reservoir phenomenon. Pancreas: There is an anechoic presumably cystic lesion in the head of the pancreas anteriorly measuring up to 1.6 centimeters. This is visible on the CT examination from 11/12/2020 but is new when compared with 09/05/2018 CT. Spleen: Spleen is normal in size and homogeneous in echotexture. Kidneys: Atrophic right kidney partially obscured by bowel gas. Left kidney is unremarkable. Aorta: Visualized aorta is normal in caliber at less than 3 cm. Iliacs: Proximal common iliac arteries are normal in caliber at less than 2.5 cm. IVC: Intrahepatic inferior vena cava is patent. Miscellaneous: Trace bilateral pleural effusions. IMPRESSION: 1. Status post cholecystectomy. 2. Anterior pancreatic cyst which was present on the 11/12/2020 exam but not present on 09/05/2018 exam. Findings are suspicious for an IPMN or other cystic pancreatic neoplasm. Pancreatic protocol MRI with IV contrast is recommended. Dictated by: Vikas Pruitt M.D. on 11/13/2020 at 11:08 Approved by: Vikas Pruitt M.D. on 11/13/2020 at 11:11
[2020-11-13] MEDS: DOCUSATE 100 MG CAPSULE PO ×2 (10:15→21:30)
[2020-11-13] MEDS: PIPERACILLIN/TAZO 4.5 GM in SODIUM CHLORIDE 0.9% 100 ML 200 ML IV (10:15)
--- NOTE | 2020-11-13 11:18 | PC.NURSE ---
Addendum entered by Janell Fong R.N. 11/13/20 13:56: Patient flow now decreased to 40l and FIO2 down to 35%. She has been moved to room 205 from 220. Resting comfortably and denies any pain. Original Note: Patient is alert and oriented x3, she is lying supine on her back.. Patient has high heated flow on with Nasal Cannula with 50L of 02 and at 45 FIO2 with heated and humidified sterile water. She is tolerating this well and denies pain. Arms and legs are edematous with 2-3+ pitting edema to lower extremities x2. She has a large blood blister to her l.[place]chuga that is intact, and she has wheepy legs. Chucks pads applied under each leg to help keep drainage off of the bed and to keep patients legs clean. Her lung sounds are decreased with some crackles. She is visiting with her daughter and napping.
[2020-11-13] MEDS: INSULIN LISPRO 100 UNIT/ML 3ML VIAL SUBCUT (11:40)
--- NOTE | 2020-11-13 13:08 | PT-IP ANOTE ---
pt on hold for PT eval . Nurse stated that pt is not ready for PT and still is on heated high flow of 50L/min. will f/u
--- NOTE | 2020-11-13 13:35 | PM.PN.1 ---
Subjective Subjective Date Patient Seen: 11/13/20 Time Patient Seen: 13:35 Interval history: Patient overall feeling not that much better. There has been no other significant change. No change in her breathing. Still having significant abdominal pain. No change in bowel movements she has had no blood in her stool. No nausea or vomiting. Is comfortable at this point. But no other changes Exam Vital Signs (past 8 hours): - 11/13/20 05:42 11/13/20 06:15 11/13/20 07:50 Temperature 98.1 F Pulse Rate 81 79 72 Respiratory Rate 20 19 20 Blood Pressure 144/51 H Pulse Oximetry 97 99 98 11/13/20 08:10 11/13/20 09:50 11/13/20 11:18 Temperature 98.3 F 98.1 F Pulse Rate 82 79 82 Respiratory Rate 20 18 16 Blood Pressure 145/56 H 141/53 H Pulse Oximetry 98 94 97 Fraction of Inspired Oxygen 45 Oxygen Delivery Method Heated High Flow Oxygen Flow Rate 50 Narrative Exam Narrative: Alert elderly female in no acute distress. Breathing comfortably on high-flow oxygen. Mucous membranes moist. Neck supple without adenopathy lungs show bilateral crackles at the base heart regular rate and rhythm with unchanged murmur. Abdomen is soft moderate tenderness primarily in the right upper quadrant no radiation no definitive masses no other changes extremities are with moderate edema with some leaking no erythema otherwise no change neurologic exam is nonfocal Objective Labs Result Diagrams: 11/13/20 05:21 11/13/20 01:27 Labs: Laboratory Results - last 24 hr 11/12/20 11/12/20 11/12/20 13:20 13:20 13:20 WBC 20.3 H D RBC 3.56 L Hgb 9.4 L Hct 29.8 L MCV 83.6 MCH 26.4 MCHC 31.5 RDW 17.8 H Plt Count 109 L Neut % (Auto) 90.5 H Lymph % (Auto) 1.9 L [place] % (Auto) 7.4 Eos % (Auto) 0.0 L Baso % (Auto) 0.2 Neut # (Auto) 46064 H Lymph # (Auto) 400 L [place] # (Auto) 1500 H Eos # (Auto) 0 Baso # (Auto) 0 ABG pH ABG pCO2 ABG pO2 ABG HCO3 ABG Total CO2 ABG O2 Saturation ABG Base Excess VBG pH VBG pCO2 VBG pO2 VBG HCO3 VBG Total CO2 VBG O2 Saturation VBG Base Excess FiO2 Sodium 136 L Potassium 3.9 Chloride 103 Carbon Dioxide 23 BUN 44 H Creatinine 2.14 H Estimated GFR 21.8 L BUN/Creatinine Ratio 20.6 Glucose 313 H Lactate Calcium 9.0 Phosphorus Magnesium Total Bilirubin 0.6 AST 42 H ALT 23 Alkaline Phosphatase 80 Total Creatine Kinase 25 L CK-MB (CK-2) TNP CK-MB (CK-2) Rel Index TNP Troponin I 0.144 H* NT-Pro-B Natriuret Pep 7940 H Total Protein 5.9 L Albumin 3.4 L Globulin 2.5 Albumin/Globulin Ratio 1.4 Lipase 210 Urine Color Urine Appearance Urine pH Ur Specific [place] Urine Protein Urine Glucose (UA) Urine Ketones Urine Occult Blood Urine Nitrate Urine Bilirubin Urine Urobilinogen Ur Leukocyte Esterase Urine RBC Urine WBC Amorphous Sediment Urine Bacteria Urine Yeast Ur Culture Indicated? SARS-CoV-2 (PCR) 11/12/20 11/12/20 11/12/20 14:45 14:48 16:29 WBC RBC Hgb Hct MCV MCH MCHC RDW Plt Count Neut % (Auto) Lymph % (Auto) [place] % (Auto) Eos % (Auto) Baso % (Auto) Neut # (Auto) Lymph # (Auto) [place] # (Auto) Eos # (Auto) Baso # (Auto) ABG pH 7.43 ABG pCO2 33.2 L ABG pO2 59 L ABG HCO3 22 ABG Total CO2 23 ABG O2 Saturation 91 L ABG Base Excess -2.0 VBG pH VBG pCO2 VBG pO2 VBG HCO3 VBG Total CO2 VBG O2 Saturation VBG Base Excess FiO2 36 Sodium Potassium Chloride Carbon Dioxide BUN Creatinine Estimated GFR BUN/Creatinine Ratio Glucose Lactate Calcium Phosphorus Magnesium Total Bilirubin AST ALT Alkaline Phosphatase Total Creatine Kinase CK-MB (CK-2) CK-MB (CK-2) Rel Index Troponin I NT-Pro-B Natriuret Pep Total Protein Albumin Globulin Albumin/Globulin Ratio Lipase Urine Color Yellow Urine Appearance Clear Urine pH 5.0 Ur Specific [place] 1.020 Urine Protein 2+ H Urine Glucose (UA) Trace H Urine Ketones Negative Urine Occult Blood Negative Urine Nitrate Negative Urine Bilirubin Negative Urine Urobilinogen 0.2 Ur Leukocyte Esterase Negative Urine RBC None seen Urine WBC None seen Amorphous Sediment 1+ Urine Bacteria None seen Urine Yeast 1-5/hpf H Ur Culture Indicated? Cult not indicated SARS-CoV-2 (PCR) Negative 11/12/20 11/12/20 11/13/20 20:32 22:39 01:27 WBC RBC Hgb Hct MCV MCH MCHC RDW Plt Count Neut % (Auto) Lymph % (Auto) [place] % (Auto) Eos % (Auto) Baso % (Auto) Neut # (Auto) Lymph # (Auto) [place] # (Auto) Eos # (Auto) Baso # (Auto) ABG pH ABG pCO2 ABG pO2 ABG HCO3 ABG Total CO2 ABG O2 Saturation ABG Base Excess VBG pH 7.42 VBG pCO2 35.1 L VBG pO2 47 H VBG HCO3 23 VBG Total CO2 24 VBG O2 Saturation 84 H VBG Base Excess -2.0 L FiO2 Sodium 136 L Potassium 3.6 Chloride 108 H Carbon Dioxide 24 BUN 40 H Creatinine 1.86 H Estimated GFR 25.7 L BUN/Creatinine Ratio 21.5 Glucose 312 H Lactate Calcium 8.4 Phosphorus Cancelled Magnesium Cancelled Total Bilirubin 0.4 AST 24 ALT 16 Alkaline Phosphatase 70 Total Creatine Kinase CK-MB (CK-2) CK-MB (CK-2) Rel Index Troponin I 0.397 H* NT-Pro-B Natriuret Pep Cancelled Total Protein 5.1 L Albumin 2.8 L Globulin 2.3 Albumin/Globulin Ratio 1.2 Lipase Urine Color Urine Appearance Urine pH Ur Specific [place] Urine Protein Urine Glucose (UA) Urine Ketones Urine Occult Blood Urine Nitrate Urine Bilirubin Urine Urobilinogen Ur Leukocyte Esterase Urine RBC Urine WBC Amorphous Sediment Urine Bacteria Urine Yeast Ur Culture Indicated? SARS-CoV-2 (PCR) 11/13/20 11/13/20 11/13/20 01:27 01:27 05:21 WBC 20.5 H RBC 3.27 L Hgb 8.6 L Hct 27.5 L MCV 84.1 MCH 26.4 MCHC 31.4 RDW 17.9 H Plt Count 103 L Neut % (Auto) 93.6 H Lymph % (Auto) 1.9 L [place] % (Auto) 4.3 Eos % (Auto) 0.1 L Baso % (Auto) 0.1 Neut # (Auto) 31703 H Lymph # (Auto) 400 L [place] # (Auto) 900 Eos # (Auto) 0 Baso # (Auto) 0 ABG pH ABG pCO2 ABG pO2 ABG HCO3 ABG Total CO2 ABG O2 Saturation ABG Base Excess VBG pH VBG pCO2 VBG pO2 VBG HCO3 VBG Total CO2 VBG O2 Saturation VBG Base Excess FiO2 Sodium Potassium Chloride Carbon Dioxide BUN Creatinine Estimated GFR BUN/Creatinine Ratio Glucose Lactate Calcium Phosphorus 4.2 H Magnesium 2.2 Total Bilirubin AST ALT Alkaline Phosphatase Total Creatine Kinase CK-MB (CK-2) CK-MB (CK-2) Rel Index Troponin I NT-Pro-B Natriuret Pep 02022 H Total Protein Albumin Globulin Albumin/Globulin Ratio Lipase Urine Color Urine Appearance Urine pH Ur Specific [place] Urine Protein Urine Glucose (UA) Urine Ketones Urine Occult Blood Urine Nitrate Urine Bilirubin Urine Urobilinogen Ur Leukocyte Esterase Urine RBC Urine WBC Amorphous Sediment Urine Bacteria Urine Yeast Ur Culture Indicated? SARS-CoV-2 (PCR) 11/13/20 11/13/20 05:21 05:21 WBC RBC Hgb Hct MCV MCH MCHC RDW Plt Count Neut % (Auto) Lymph % (Auto) [place] % (Auto) Eos % (Auto) Baso % (Auto) Neut # (Auto) Lymph # (Auto) [place] # (Auto) Eos # (Auto) Baso # (Auto) ABG pH ABG pCO2 ABG pO2 ABG HCO3 ABG Total CO2 ABG O2 Saturation ABG Base Excess VBG pH VBG pCO2 VBG pO2 VBG HCO3 VBG Total CO2 VBG O2 Saturation VBG Base Excess FiO2 Sodium Potassium Chloride Carbon Dioxide BUN Creatinine Estimated GFR BUN/Creatinine Ratio Glucose Lactate 1.2 Calcium Phosphorus Magnesium Total Bilirubin AST ALT Alkaline Phosphatase Total Creatine Kinase CK-MB (CK-2) CK-MB (CK-2) Rel Index Troponin I 0.536 H* NT-Pro-B Natriuret Pep Total Protein Albumin Globulin Albumin/Globulin Ratio Lipase Urine Color Urine Appearance Urine pH Ur Specific [place] Urine Protein Urine Glucose (UA) Urine Ketones Urine Occult Blood Urine Nitrate Urine Bilirubin Urine Urobilinogen Ur Leukocyte Esterase Urine RBC Urine WBC Amorphous Sediment Urine Bacteria Urine Yeast Ur Culture Indicated? SARS-CoV-2 (PCR) [facility] Medical History CHF (congestive heart failure) HTN (hypertension) Hypoglycemia Palpitations Paroxysmal atrial fibrillation Stable angina Surgical History No pertinent past surgical history Family History Family/Other Diabetes mellitus Father Loud snoring Hypertension Heart disease Mother Hypertension Heart disease Family/Other Heart disease Hypertension Social History household members: children Smoking Status: Never smoker alcohol intake: current Assessment & Plan Assessment & Plan narrative: Acute hypoxic respiratory failure secondary to sleep apnea heart failure possible infection. At this point certainly her chest x-ray actually did look that bad. Wonder how much of this is possibly sepsis related. Could this be related to her abdominal issues I guess it is possible. Certainly unlikely DVT since she has been on anticoagulation her chest x-ray did show worsening pneumonia but may need CT scan without contrast to evaluate. At this point we are going to see what happens to more aggressive diuresis and follow from there. Discussed with family she ended they understand Abdominal pain. Pretty significant. Ultrasound and CT scan show no abnormality. Could this be possibly ischemic bowel related certainly she is tender without any other findings. White count is up ascending cholangitis I do not think so but it is possible we going to discuss with surgeons am going to add anaerobic coverage IV and re-evaluate after that. Community-acquired pneumonia. At least she has a history of this. May need CT scan. Question whether this pulmonary issues are all related to that were going to have to see. If she does not respond IV Lasix and her antibiotics will need to possibly transfer for for pulmonology support Elevated troponin. Similar situation. I think this is more related to renal failure and possible type 2 injury will have to see how it goes and follow. Cardiology support if not improving with diuresis. Dehydration. We have some issues she has had some diarrhea nausea she is not having it now she is over hydrated as far as her heart goes were going to see what happens as we give her Lasix what to watch closely and follow. Hypertension patient's blood pressures been trending lower and were going to hold all her usual medicines and will follow. Elevated white count. This is very concerning she has had history of pneumonia I am not sure this is all related to that and that is see what surgeon says and then follow from there. Type 2 diabetes. Were going to follow and will proceed from there. Acute on chronic renal failure. She needs diuresis were going to have to see what happens as we watch her kidney function may need higher level care depending on how she responds Polymyalgia rheumatica. Will continue actually at this point on IV Solu-Medrol Bilateral edema pretty severe will consult [facility]ound [facility]. Code status. We discussed with her extensively given all of the situations and she elected for DNR. I think this is comfortable her daughter understands and agrees will follow from there. DVT prophylaxis SCDs Disposition. This is a very ill individual and high risk for terminal outcome. Clearly she has abdominal discomfort and is hypoxic failure and is very complicated with a renal failure and cardiac issues at this point we discussed that this with her and her daughter that this could be a terminal event and will just have to see how things go and how she responds over the next 24 hours.
[2020-11-13] MEDS: PIPERACILLIN/TAZO 3.375 GM in SODIUM CHLORIDE 0.9% 100 ML 25 ML IV ×2 (14:35→21:29)
--- NOTE | 2020-11-13 15:15 | PT-IP ANOTE ---
Pt continues to be on heated high flow O2. PT eval on hold. pt continues to not be appropriate for PT at this time. will f/u.
--- NOTE | 2020-11-13 15:18 | CM.DPC ---
Discharge Planning/Care Management DCP: assessment: Case received, EMR reviewed, READMIT: noted/see template below for details. Met now with pt and her daughter Jackie Avendano: [phone]. (pt has just moved from 220 to 205.) Reintroduced self and role (familiar with pt and Jackie from prior admission). Pt is an 85 year old female who admitted yesterday late evening to care of Dr. Hood. PCP: Dr. Mahan, saw her today. Full dx and treatment plan is in process. Payer: Medicare and [facility] Admission status: INPT: confirmed by [facility] RN Gisel KENDALL has been seeing pt at home. Both pt and daughter confirm that pt is set up to admit to [facility] this /Nov 19. Jackie Barnes has been working with [facility] and will let her know that pt is in the hospital now. Both Pt and Jackie Barnes say they think that she might need the snf setting first before going directly to [facility] and they wish to get her on the list for [facility]. Referral is given now to [facility] and she is reviewing. She says they so have beds but she will likely not have review answer until later today or weekend (she is on for [facility] this weekend). She says she has spoken several times in the past with Jackie Barnes. COVID vax status: fully completed. Jackie Barnes has picture of pt's vax card on her phone and can send to [facility] and/or [facility] as needed. It is unclear at this time when pt will be stable for d/c. DCP team will follow. IF d/c to snf/[facility] will be needed. Advanced directive, confirm from FAMILY Start: 11/12/20 22:25 Freq: Q24H Status: Active Protocol: Document 11/12/20 22:25 KJ (Rec: 11/12/20 23:50 KJ [id number]) Advance Directive, confirm on record Time 21:30 Person contacted patient Copy received Yes CM Discharge Assessment Start: 11/13/20 15:16 Freq: Status: Active Protocol: Document 11/13/20 15:16 ITV (Rec: 11/13/20 15:18 ITV [id number]) Discharge Planning Assessment Advance Directives? Yes: POLST Advance Directives on File Yes History Provided By Patient,Family Member,Medical Record Has Patient been admitted in last 30 Yes days? Comment 10/23 - 10/29/20 with a d/c to home, family care and plan to look into other care-giving situations. Gisel ENOCH Prior Living Arrangements House Is patient alert and oriented? Yes Referrals Initiated [facility] If patient plan is home with home health Yes : Has signed face to face form been completed? Review Status In Process Discharge Planning/Care Management Advanced directive, confirm from FAMILY Start: 11/12/20 22:25 Freq: Q24H Status: Active Protocol: Document 11/12/20 22:25 KJ (Rec: 11/12/20 23:50 KJ [id number]) Advance Directive, confirm on record Time 21:30 Person contacted patient Copy received Yes CM Discharge Assessment Start: 11/13/20 15:16 Freq: Status: Active Protocol: Document 11/13/20 15:16 ITV (Rec: 11/13/20 15:18 ITV [id number]) Discharge Planning Assessment Advance Directives? Yes: POLST Advance Directives on File Yes History Provided By Patient,Family Member,Medical Record Has Patient been admitted in last 30 Yes days? Comment 10/23 - 10/29/20 with a d/c to home, family care and plan to look into other caregiving situations. Gisel KENDALL Prior Living Arrangements House Is patient alert and oriented? Yes Referrals Initiated [facility] If patient plan is home with home health Yes : Has signed face to face form been completed? Review Status In Process
--- NOTE | 2020-11-13 18:38 | PM.CN ---
History of Present Illness Consult details Chief complaint: Abd pain Narrative: The patient is a woman recently treated for pneumonia and congestive heart failure discharged but is return to the hospital. She has developed diffuse abdominal pain I was asked to see her. She is minimally communicative but does seem to be a oriented. She is presently on a heated high-flow oxygen of 35 L per minute. Meds Home Medications and Allergies Home Medications Medication Instructions Recorded Confirmed Type ezetimibe 10 mg tablet (Zetia) 10 mg PO DAILY #0 10/16/12 11/13/20 History insulin lispro 100 unit/mL See Protocol SUBCUT DIRECTED 05/31/16 11/13/20 History subcutaneous solution (Humalog PRN #0 U-100 Insulin) allopurinol 100 mg tablet 300 mg PO DAILY 08/08/18 11/13/20 History (Zyloprim) levothyroxine 125 mcg tablet 125 mcg PO DAILY 08/08/18 11/13/20 History (Synthroid) colchicine 0.6 mg tablet (Colcrys) See Rx Instructions .ROUTE 01/28/19 11/13/20 History .COMPLEX PRN MDD 3 tab acetaminophen 325 mg tablet 325 mg PO PRN PRN 05/28/19 11/13/20 History (Tylenol) flash glucose sensor (FreeStyle 05/28/19 11/13/20 History Thomas 14 Day Sensor) insulin glargine 100 unit/mL (3 14 unit SUBCUT QPM 05/28/19 11/13/20 History mL) subcutaneous pen (Lantus Solostar U-100 Insulin) amlodipine 5 mg tablet (Norvasc) 10 mg PO DAILY 06/03/20 11/13/20 History rosuvastatin 10 mg tablet 5 mg PO BEDTIME 06/03/20 11/13/20 History furosemide 20 mg tablet (Lasix) 40 mg PO BID 07/13/20 11/13/20 History potassium chloride 20 mEq 20 meq PO DAILYCC #60 tab 07/14/20 11/13/20 Rx tablet,extended release(part/cryst) (Klor-Con M) hydralazine 25 mg tablet 25 mg PO Q8HR #60 tab 10/29/20 11/13/20 Rx insulin glargine 100 unit/mL (3 10 unit SUBCUT DAILY #3 ml 10/29/20 11/13/20 Rx mL) subcutaneous pen (Lantus Solostar U-100 Insulin) prednisone 20 mg tablet 20 mg PO DAILY #100 tab 10/29/20 11/13/20 Rx amiodarone 200 mg tablet 200 mg PO DAILY 11/13/20 11/13/20 History pantoprazole 20 mg tablet,delayed 40 mg PO DAILY@0700,2100 11/13/20 11/13/20 History release Allergies Allergy/AdvReac Type Severity Reaction Status Date / Time kiwi Allergy Severe ANAPHYLAXIS Verified 11/12/20 13:05 Sulfa (Sulfonamide Allergy Severe unknown Verified 11/12/20 13:05 Antibiotics) meperidine AdvReac Severe I GO NUTS Verified 11/12/20 13:05 morphine AdvReac Severe DIZZY Verified 11/12/20 13:05 Review of Systems Review of Systems Narrative: Short of breath. On oxygen supplementation. Initially when I came into the room she had said her abdomen was doing better until I pushed on it. Then she complained of pain. Exam Vital Signs (past 8 hours): - 11/13/20 11:18 11/13/20 13:40 11/13/20 15:30 Temperature 98.1 F 98.6 F Pulse Rate 82 76 74 Respiratory Rate 16 18 15 Blood Pressure 141/53 H 141/53 H 127/45 L Pulse Oximetry 97 96 98 11/13/20 16:52 Temperature Pulse Rate 74 Respiratory Rate 18 Blood Pressure Pulse Oximetry 96 Fraction of Inspired Oxygen 45 Oxygen Delivery Method Heated High Flow Oxygen Flow Rate 50 Narrative Exam Narrative: Very weak appearing woman. Frail. Extensive bruising about her arms. Lungs fair effort. Coarse breath sounds. Heart loud systolic murmur 4 to 5/6 heard throughout the precordium. Fairly regular rate and rhythm however. Abdomen very difficult to evaluate. Initial palpation of the abdomen and rate results in patient complaining of pain but re-examined the area as often nontender. Most of her tenderness is in the right upper quadrant. There is no involuntary guarding. Objective Labs Result Diagrams: 11/13/20 05:21 11/13/20 01:27 Labs: Laboratory Results - last 24 hr 11/12/20 11/12/20 11/13/20 20:32 22:39 01:27 WBC RBC Hgb Hct MCV MCH MCHC RDW Plt Count Neut % (Auto) Lymph % (Auto) [place] % (Auto) Eos % (Auto) Baso % (Auto) Neut # (Auto) Lymph # (Auto) [place] # (Auto) Eos # (Auto) Baso # (Auto) VBG pH 7.42 VBG pCO2 35.1 L VBG pO2 47 H VBG HCO3 23 VBG Total CO2 24 VBG O2 Saturation 84 H VBG Base Excess -2.0 L Sodium 136 L Potassium 3.6 Chloride 108 H Carbon Dioxide 24 BUN 40 H Creatinine 1.86 H Estimated GFR 25.7 L BUN/Creatinine Ratio 21.5 Glucose 312 H Lactate Calcium 8.4 Phosphorus Cancelled Magnesium Cancelled Total Bilirubin 0.4 AST 24 ALT 16 Alkaline Phosphatase 70 Troponin I 0.397 H* NT-Pro-B Natriuret Pep Cancelled Total Protein 5.1 L Albumin 2.8 L Globulin 2.3 Albumin/Globulin Ratio 1.2 11/13/20 11/13/20 11/13/20 01:27 01:27 05:21 WBC 20.5 H RBC 3.27 L Hgb 8.6 L Hct 27.5 L MCV 84.1 MCH 26.4 MCHC 31.4 RDW 17.9 H Plt Count 103 L Neut % (Auto) 93.6 H Lymph % (Auto) 1.9 L [place] % (Auto) 4.3 Eos % (Auto) 0.1 L Baso % (Auto) 0.1 Neut # (Auto) 90847 H Lymph # (Auto) 400 L [place] # (Auto) 900 Eos # (Auto) 0 Baso # (Auto) 0 VBG pH VBG pCO2 VBG pO2 VBG HCO3 VBG Total CO2 VBG O2 Saturation VBG Base Excess Sodium Potassium Chloride Carbon Dioxide BUN Creatinine Estimated GFR BUN/Creatinine Ratio Glucose Lactate Calcium Phosphorus 4.2 H Magnesium 2.2 Total Bilirubin AST ALT Alkaline Phosphatase Troponin I NT-Pro-B Natriuret Pep 26759 H Total Protein Albumin Globulin Albumin/Globulin Ratio 11/13/20 11/13/20 05:21 05:21 WBC RBC Hgb Hct MCV MCH MCHC RDW Plt Count Neut % (Auto) Lymph % (Auto) [place] % (Auto) Eos % (Auto) Baso % (Auto) Neut # (Auto) Lymph # (Auto) [place] # (Auto) Eos # (Auto) Baso # (Auto) VBG pH VBG pCO2 VBG pO2 VBG HCO3 VBG Total CO2 VBG O2 Saturation VBG Base Excess Sodium Potassium Chloride Carbon Dioxide BUN Creatinine Estimated GFR BUN/Creatinine Ratio Glucose Lactate 1.2 Calcium Phosphorus Magnesium Total Bilirubin AST ALT Alkaline Phosphatase Troponin I 0.536 H* NT-Pro-B Natriuret Pep Total Protein Albumin Globulin Albumin/Globulin Ratio Assessment & Plan Assessment & Plan narrative: I reviewed her recent imaging and her echo and nuclear medicine study of her heart from earlier this year. I also reviewed her recent CT scan and ultrasound. Patient has extensive aortic calcifications. She has a cystic lesion in her pancreas. Really do not see much else of obvious abnormality though this study was done without contrast because her creatinine had elevated. There has been no cardiac imaging this admission. Her troponin levels are elevated above 0.5 and rising. She has an history of paroxysmal atrial fibrillation but seems to be in sinus rhythm right now. Her liver function tests are within normal limits. She does not have a gallbladder packed areas her appendix looked normal in CT scan. Nothing about her bowel look particularly worrisome on the CT scan. Overall I think this very frail-appearing patient is at incredibly high risk of an operation, especially since I am not sure she needs 1. It is not clear to me what is causing her abdominal pain but I wonder if it is a flow phenomenon issue. A could be relative ischemia given the amount of calcification with her order that is present. Any operative attempt on this patient is incredibly high risk of or disability. Surgical calculated ears predict a possible rate of 90% and in all likelihood to discharge if she survives to a nursing facility and not her home. I asked her quite frankly if she would want operation and her answer initially was no. Then she said what kind. I told her an abdominal duration. She said if I would survive and I might. I told her the chances of that were probably pretty slim and she said she would not be interested. At this time non not certain she needs surgical intervention. Any intervention would be incredibly high risk. The above discussed with Dr. Mahan.
[2020-11-13] MEDS: PANTOPRAZOLE 40 MG VIAL IV (21:29)
[2020-11-14] VITALS (12 sets, daily range): BP systolic 131–168; BP diastolic 54–74; PULSE 73–86; RESP 15–20; TEMP 36.7–37.2; O2SAT 94–99
[2020-11-14] MEDS: FUROSEMIDE 40 MG/4 ML VIAL IV (00:47)
[2020-11-14] MEDS: PIPERACILLIN/TAZO 3.375 GM in SODIUM CHLORIDE 0.9% 100 ML 25 ML IV ×3 (05:20→21:56)
--- NOTE | 2020-11-14 07:28 | RT ---
Patient weaned to 2L NC from heated high flow, home CPAP available in room for patient to use at rest. no WOB or resp distress noted at this time, RN notified of oxygen wean.
[2020-11-14] MEDS: INSULIN LISPRO 100 UNIT/ML 3ML VIAL 16 UNIT SUBCUT ×2 (08:33→10:56)
[2020-11-14] MEDS: INSULIN GLARGINE 100 UNIT/ML 3ML PEN SUBCUT (08:34)
[2020-11-14] MEDS: PANTOPRAZOLE 40 MG VIAL IV ×2 (08:36→21:56)
[2020-11-14] MEDS: DOCUSATE 100 MG CAPSULE PO (08:36)
[2020-11-14 08:51] LABS: Add Manual Diff / Slide Review NO; Basophils Absolute Auto 100 /uL (0-100); Basophils Percent Auto 0.3 % (0-2); Eosinophils Absolute Auto 0 /uL (0-450); Hemoglobin 8.7 g/dL (12.0-16.0); Lymphocytes Absolute Auto 200 /uL (1100-4500); Lymphocytes Percent Auto 0.9 % (25-40); Mean Corpuscular HGB Conc 31.1 % (30-36); Mean Corpuscular Hemoglobin 26.2 PG (26-34); Mean Corpuscular Volume 84.3 fL (80-100); Monocytes Absolute Auto 400 /uL (0-900); Monocytes Percent Auto 1.8 % (3-14); Neutrophils Absolute Auto 19800 /uL (1500-7000); Platelet Count 105 X10^3/uL (150-400); Red Blood Cell Count 3.32 X10^6/uL (4.0-5.2); White Blood Cell Count 20.4 X10^3/uL (4.5-11.0)
[2020-11-14] MEDS: SODIUM CHLORIDE 0.9% FLUSH 10 ML IV ×2 (09:00→21:56)
[2020-11-14 09:02] LABS: Creatine Kinase 21 U/L (30-135)
[2020-11-14 09:03] LABS: Alanine Aminotransferase 16 IU/L (<35); Albumin 2.9 g/dL (3.5-5.0); Albumin Globulin Ratio 1.1 (1.0-2.8); Alkaline Phosphatase 89 U/L (38-126); Aspartate Aminotransferase 23 IU/L (14-36); BUN Creatinine Ratio 24.6 (6-22); Bilirubin Total 0.6 mg/dL (0.2-1.3); Blood Urea Nitrogen 52 mg/dL (7-17); Calcium 8.5 mg/dL (8.4-10.2); Carbon Dioxide 20 mmol/L (22-32); Chloride 103 mmol/L (98-107); Estimated Glomerular Filt Rate 22.2 mL/min (>60); Globulin 2.6 g/dL (1.7-4.1); HEMOLYSIS < 15 (0-50); Potassium 3.4 mmol/L (3.4-5.1); Sodium 135 mmol/L (137-145); Total Protein 5.5 g/dL (6.3-8.2)
[2020-11-14 09:06] LABS: Glucose 548 mg/dL (80-110)
[2020-11-14 09:20] LABS: Procalcitonin 2.53 ng/mL (<0.5)
[2020-11-14] MEDS: ONDANSETRON 4 MG/2 ML INJ IV (10:44)
[2020-11-14] MEDS: AMIODARONE 200 MG TABLET PO (10:48)
[2020-11-14] MEDS: ENOXAPARIN 30 MG/0.3 ML SYRINGE SUBCUT (10:53)
--- NOTE | 2020-11-14 11:01 | P.PN_ITS ---
Subjective Subjective Date Patient Seen: 11/14/20 Time Patient Seen: 11:01 Interval history: Patient's status reviewed with Dr. Mahan last evening. Overnight patient has been able to come down on her oxygen with a lessening oxygen requirement. Feels like her breathing is tremendously better than it was upon admission. Her abdominal pain is also better. Still seems to be triggered by eating anything solid but liquids are going down okay. No new complaints Was seen by surgery yesterday did not feel like she was a surgical candidate would be super high risk for any sort of invasive procedure and no clear diagnosis or indication for surgery exists at this time. Source of abdominal pain was not felt to be at all clear by Dr. Angulo. Exam Vital Signs (past 8 hours): - 11/14/20 03:58 11/14/20 04:00 11/14/20 06:22 Temperature 98.2 F Pulse Rate 75 73 74 Respiratory Rate 18 18 18 Blood Pressure 131/55 L Pulse Oximetry 95 96 94 11/14/20 07:21 11/14/20 07:25 11/14/20 08:00 Temperature 98.2 F Pulse Rate 85 85 86 Respiratory Rate 16 16 18 Blood Pressure 138/58 L Pulse Oximetry 99 99 98 Fraction of Inspired Oxygen 45 Oxygen Delivery Method Nasal Cannula Oxygen Flow Rate 2 Narrative Exam Narrative: Elderly female who appears somewhat younger than stated age in no obvious distress sitting up in her bed breathing comfortably HEENT-normocephalic atraumatic Neck-no bruit Lungs-clear with good breath sounds no wheezes no crackles Heart-regular rate and rhythm grade 3/6 systolic ejection murmur through the e ntire precordium with radiation towards the left carotid Abdomen-positive bowel tones, no rebound or guarding per se. Tenderness present in the right periumbilical area without the rebound or guarding Extremities-trace edema bilaterally lower extremities Objective Labs Result Diagrams: 11/14/20 08:45 11/14/20 08:45 Labs: Laboratory Results - last 24 hr 11/14/20 11/14/20 11/14/20 08:45 08:45 08:45 WBC 20.4 H RBC 3.32 L Hgb 8.7 L Hct 28.0 L MCV 84.3 MCH 26.2 MCHC 31.1 RDW 18.0 H Plt Count 105 L Neut % (Auto) 97.0 H Lymph % (Auto) 0.9 L George % (Auto) 1.8 L Eos % (Auto) 0.0 L Baso % (Auto) 0.3 Neut # (Auto) 64835 H Lymph # (Auto) 200 L George # (Auto) 400 Eos # (Auto) 0 Baso # (Auto) 100 Sodium 135 L Potassium 3.4 Chloride 103 Carbon Dioxide 20 L BUN 52 H Creatinine 2.11 H Estimated GFR 22.2 L BUN/Creatinine Ratio 24.6 H Glucose 548 H* D Calcium 8.5 Total Bilirubin 0.6 AST 23 ALT 16 Alkaline Phosphatase 89 Total Creatine Kinase 21 L CK-MB (CK-2) TNP CK-MB (CK-2) Rel Index TNP Troponin I 0.180 H* Total Protein 5.5 L Albumin 2.9 L Globulin 2.6 Albumin/Globulin Ratio 1.1 Procalcitonin 11/14/20 08:45 WBC RBC Hgb Hct MCV MCH MCHC RDW Plt Count Neut % (Auto) Lymph % (Auto) George % (Auto) Eos % (Auto) Baso % (Auto) Neut # (Auto) Lymph # (Auto) George # (Auto) Eos # (Auto) Baso # (Auto) Sodium Potassium Chloride Carbon Dioxide BUN Creatinine Estimated GFR BUN/Creatinine Ratio Glucose Calcium Total Bilirubin AST ALT Alkaline Phosphatase Total Creatine Kinase CK-MB (CK-2) CK-MB (CK-2) Rel Index Troponin I Total Protein Albumin Globulin Albumin/Globulin Ratio Procalcitonin 2.53 H [facility] Medical History Aortic stenosis (06/12/20) CHF (congestive heart failure) Chronic migraine Diabetes mellitus (08/29/13) HTN (hypertension) Hyperlipidemia (08/29/13) Hypothyroid 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 Acute on chronic congestive heart failure-this is on the basis of systolic dysfunction. Patient had echo done on the 23 of October which is not available in the EMR at this time but is available in the radiology system showing ejection fraction of between 30 and 40% which was declined from previous echo done in September over at [facility] per that report. I do not have access to t he echo done at [facility] She has improved with diuresis although her renal function has suffered. Her oxygen requirement is minimal at this time. Her troponin also went up and is coming back down. I would very much like to understand what her cardiac function looks like now and will order another limited echo to look at systolic function primarily. Also see if we can get copies of the full echo report from [facility] in September as I am concerned about aortic stenosis as a potential etiology for this recurrent theme, I believe she may have much more severe aortic stenosis than has been appreciated previously 2. Abdominal pain-no clear etiology for this exist. She clearly has an abnormality at the head of the pancreas it is quite concerning for pancreatic neoplasm and I discussed this with her at length. I do not really think this explains her pain although cannot of course be sure about that. I would be much more concerned given lack of other findings such as issues with the biliary tree or other findings on CT that this represents more intestinal ischemia. Patient clearly does have significant peripheral vascular disease and would be a risk of this. No evidence of infarcted bowel at this point which would be actually in some ways easier to identify. I will have an amylase added to her labs from this morning to see if an elevated amylase can point me in that direction. Her lipase done upon admission was normal however. Given that I believe some ischemia related to peripheral vascular disease may be present I placed her on Lovenox at renal doses to see if we can improve blood flow. Discussed with patient and family as well. 3. Acute kidney injury-patient with worsening of her renal function again with a diuretic therapy. I have cut back on her diuretic therapy although I think she needs to continue on some dose. Plan to recheck numbers tomorrow. She may also have more actual renal disease that is obvious based on the numbers alone. Sometimes recurrent congestive heart failure can be on the basis of end-stage renal disease despite relatively normal seeming creatinine and BUN. 4. Pancreatic cyst/neoplasm-after discussion with patient and family go ahead and order MRI of the pancreas in effort to better determine what is or is not happening in the abdomen but also to look at this more specifically. I think prognosis would be important for this patient in the short and long-term 5. Diabetes-patient's blood sugars wildly out of control likely due to the IV steroids. IV steroids ordered I believe because of her history of PMR, and she is chronically on prednisone for that indication it appears. I have reduced the dose of the IV steroids still should be considered stress dose level which I think is sufficient. Hopefully with additional insulin and reduce steroids we will gain control of her blood sugars. 6. Question pneumonia-again patient with some evidence of pneumonia on chest x- ray as well as possibility of intra-abdominal infection causing her abdominal pain. Persists with leukocytosis. Continue with current parental antibiotics but frankly I am not convinced there is residual pneumonia. Still quite unclear what is going on in the abdomen in could be an undiagnosed infection although again no specific evidence on imaging points to that at this point. 7. Elevated troponin-I believe this is demand ischemia or type 2 myocardial infarction. Again as above will repeat echo. Patient not a candidate for cardiac catheterization 8. VTE prophylaxis-patient has been initiated on Lovenox which will cover this as well 9. Code status-Dr. Mahan indicated last evening patient would not want any sort of resuscitation in the event of a sudden cardiac or respiratory arrest but her admission history and physical suggested she would want to be intubated. I had another aleena discussion with her regarding this and indeed she would agree to intubation if necessary for respiratory support but would not want any sort of cardiac resuscitation such as CPR or cardioversion. She would be okay with medical therapy e.g. pressors etcetera.
[2020-11-14 11:53] LABS: Amylase 59 U/L (30-110)
--- NOTE | 2020-11-14 12:00 | PT.IIE ---
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) Paroxysmal atrial fibrillation Peripheral arterial occlusive disease (08/29/13) PMR (polymyalgia rheumatica) Physical Therapy Inpatient Evaluation/Re-Eval M1 PT/OT-IP Prior Functional Status Start: 11/14/20 12:54 Freq: NEEDED Status: Active Protocol: Document 11/14/20 12:00 AB (Rec: 11/14/20 13:11 AB [email or web address]) Medical Review Prior Functional Status Medical History Reviewed Yes Communication able to make needs known; [place] [facility] [facility] Mobility and Gait daughter stated that pt is modified independent with all mobilities and ambulation with 4WW Social History Household Members children Living Arrangements House Number of Floors (Floors) One Floor Number of Stairs To Enter/Railing? 7 steps 1 rail Home Environment Standard Height Toilet,Tub/ Shower Home Equipment Four Wheel Walker,Raised Toilet Seat Without Armrests, Tub Transfer Bench,Grab Bars In Shower Additional Social History Comment per daughter (lives out of town) that her sister lives with pt but will be moving out and cannot assist pt due to sister's own medical issues. daughter stated that pt has a bed next week Wed at [facility]. pt usually sleeps on her recliner M2 PT-IP Current Condition Start: 11/14/20 12:54 Freq: NEEDED Status: Active Protocol: Document 11/14/20 12:00 AB (Rec: 11/14/20 13:11 AB [email or web address]) Physical Therapy Current Condition Current Condition Evaluation Date 11/14/20 Treatment Diagnosis CHF; PNA; difficulty in walking Onset Date 11/12/20 Precautions Other Precautions O2 sat M3 PT-IP Subjective Start: 11/14/20 12:54 Freq: NEEDED Status: Active Protocol: Document 11/14/20 12:00 AB (Rec: 11/14/20 13:11 AB [email or web address]) Subjective Physical Therapy Visit Type Type Initial Evaluation Visit Start Time 12:00 Visit Stop Time 12:30 Total Visit Minutes 30 Number of SCRAP HOOKER Visits 0 Physical Therapy Visit Comments Patient Comments pt is agreeable to do PT Therapy Pain Assessment Pain When Pain Assessed At Rest Pain Present Pain Present Pain Reported Location Abdomen Scale Used pain scale not stated Pain Management Techniques Distraction,Modification of Treatment,Re-positioning, Timing of Activity with Medications M4 PT-IP Mobility and Gait Start: 11/14/20 12:54 Freq: NEEDED Status: Active Protocol: Document 11/14/20 12:00 AB (Rec: 11/14/20 13:11 AB [email or web address]) PT-Bed Mobility Assessment Supine to Sit Supine to Sit Maximum Assistance,1 Person Assistance,2 Person Assistance ,Head of Bed Elevated,Bedrails Scooting Scooting to Edge of Bed Maximum Assistance PT-Transfer Assessment Sit to and From Stand Sit to and from Stand Maximum Assistance,Total Assistance,1 Person Assistance ,Use of Upper Extremities Equipment Transfer Assistive Device Gait Belt,Front Wheeled Walker Orthotic/Prosthetic Devices or Brace: No Transfers Transfer Destination Chair Transfer Technique Stand Step Pivot Transfer Ability Level of Assist Maximum Assistance,1 Person Assistance,Use of Upper Extremities Comments Mobility Comments O2 sat at room air 94-96%. completed supine to sit with HOB elevated max A x 1-2 and max cues. pt was able to sit on EOB CGA. O2 sat 94%. completed sit to stand max A and cues and completed step transfer using FWW max A and cues. O2 sat after transfer 94%. pt refused ambulation but agreed to stay up on chair . call light and table placed within reach. informed nurse regarding mobility assistance. PT-Balance Assessment Sitting Balance and Reactions Static Sitting Balance Ability Good Dynamic Sitting Balance Ability Fair Standing Balance and Reactions Static Standing Balance Ability Poor Dynamic Standing Balance Ability Poor Device Used FWW M5 PT-IP Objective Assessments Start: 11/14/20 12:54 Freq: NEEDED Status: Active Protocol: Document 11/14/20 12:00 AB (Rec: 11/14/20 13:11 AB [email or web address]) Orientation Orientation/Cognition Level of Alertness Alert Orientation Name,Place,Situation Language Function Ability Hard of Hearing Safety Awareness Decreased Safety Awareness Gross Range of Motion Lower Extremity ROM Assessment Within Functional Limits Strength Lower Extremity Strength Assessment Bilaterally Impaired Hip 3+/5 Knee 3+/5 Muscle Tone Muscle Tone WNL Yes M6 PT-IP Treatment Start: 11/14/20 12:54 Freq: NEEDED Status: Active Protocol: Document 11/14/20 12:00 AB (Rec: 11/14/20 13:11 AB [email or web address]) Physical Therapy Treatment Education Education Provided Safety M7 PT-IP Assessment and Plan Start: 11/14/20 12:54 Freq: NEEDED Status: Active Protocol: Document 11/14/20 12:00 AB (Rec: 11/14/20 13:11 AB [email or web address]) PT Summary Assessment and Plan Potential Rehabilitation Potential Good Status of Condition at Evaluation Evolving Summary Impairments Pain,ROM,Strength,Balance, Coordination,Sensation,Tone, Cognition,Bed Mobility, Transfers,Gait,Activity Tolerance Assessment Summary pt requiring max A with mobility using FWW and presents with decrease activity tolerance affecting mobility. pt was able to maintain O2 sat at room air 94 % with activity. pt will require SNF rehab to improve overall strength, activity tolerance and functional mobility. Goals Bed Mobility Goal Standby Assistance Transfer Goal Standby Assistance,Front Wheeled Walker Gait Goal Standby Assistance,Front Wheel Walker Gait Distance 100 Other Goals improve ambulation using 4WW 150 ft SBA up/down 7 steps 1 rail SBA Days to Meet Goals 10 Frequency of Treatment Frequency Of Treatment Once a Day Treatment Plan Physical Therapy Treatment Plan Bed Mobility Training,Transfer Training,Gait Training, Therapeutic Exercise,Balance Retraining,Discharge Planning, Hot or Cold Pack,Neuromuscular Re-ed,Coordination Retraining Precautions Other Precautions O2 sat Recommendations To Nursing Amount of Assist Needed 2 Person Assist Discharge Recommendations PT Discharge Recommendations SNF Rehab Transportation Needs at Discharge Wheelchair/Cabulance
[2020-11-14] MEDS: INSULIN LISPRO 100 UNIT/ML 3ML VIAL SUBCUT (12:27)
--- NOTE | 2020-11-14 14:03 | PC.NURSE ---
Patient with tender skin and blister to BLE's, too painful to apply SCD's
--- NOTE | 2020-11-14 15:33 | CM.DPC ---
DCP Cont: Met with patient and daughter, Jackie Avendano. Introduced self and role. Patient and daughter are still hoping for [facility] before [facility], if this is what she will need. Daughter indicated that MRI will be done tomorrow, and depending upon the findings, could possibly go home. Patient is alert and oriented, was laying in bed, daughter at bedside. Placed name of this immigration case manager on patient's white board, and encouraged daughter to call this immigration case manager with any questions. P: DCP to continue to follow, and will check in tomorrow. Alaina Dewitt RN/Personal Loan Specialist
--- NOTE | 2020-11-14 15:42 | PC.NURSE ---
Pt BG 487 on sensor and >500 on glucometer this a.m. Lab notified RN of critical blood glucose, notified and received one time order of sq humalog 16 units. Upon recheck BG 476, one hour +later, at bedside, received orders for a repeat humalog of 16 units sc. explained to patient and family that cause due to steroids. This afternoon BG down to 275. Pt with poor po intake. Continuous monitoring.
[2020-11-14] MEDS: fentaNYL 100 MCG/2 ML INJ 75 MCG IV ×2 (16:11→17:12)
[2020-11-14] MEDS: ACETAMINOPHEN 325 MG TABLET 650 MG PO (16:11)
--- NOTE | 2020-11-14 19:02 | PC.NURSE ---
LATE NOTE: INFORMED OF PATIENTS REQUEST TO TALK WITH MD ABOUT END OF LIFE,NO NEW ORDERS AT THIS TIME. DR. MALLORY WAS ABLE TO TALK WITH DAUGHTER ON PHONE
[2020-11-15] VITALS (8 sets, daily range): BP systolic 127–170; BP diastolic 51–69; PULSE 58–84; RESP 13–67; TEMP 36.6–37; O2SAT 93–96
[2020-11-15] MEDS: FUROSEMIDE 40 MG/4 ML VIAL 20 MG IV (01:23)
[2020-11-15] MEDS: fentaNYL 100 MCG/2 ML INJ 75 MCG IV ×3 (05:50→17:42)
[2020-11-15] MEDS: PIPERACILLIN/TAZO 3.375 GM in SODIUM CHLORIDE 0.9% 100 ML 25 ML IV ×2 (05:51→17:41)
[2020-11-15 06:00] LABS: Add Manual Diff / Slide Review NO; Basophils Absolute Auto 0 /uL (0-100); Basophils Percent Auto 0.2 % (0-2); Eosinophils Absolute Auto 0 /uL (0-450); Hematocrit 25.7 % (36-46); Hemoglobin 8.1 g/dL (12.0-16.0); Lymphocytes Absolute Auto 300 /uL (1100-4500); Lymphocytes Percent Auto 1.2 % (25-40); Mean Corpuscular HGB Conc 31.8 % (30-36); Mean Corpuscular Volume 81.9 fL (80-100); Monocytes Absolute Auto 1000 /uL (0-900); Neutrophils Absolute Auto 19300 /uL (1500-7000); Neutrophils Percent Auto 93.6 % (50-75); Platelet Count 112 X10^3/uL (150-400); Red Blood Cell Count 3.13 X10^6/uL (4.0-5.2); Red Cell Distribution Width 17.6 % (11.6-14.8); White Blood Cell Count 20.6 X10^3/uL (4.5-11.0)
[2020-11-15 06:10] LABS: Alanine Aminotransferase 15 IU/L (<35); Albumin 2.7 g/dL (3.5-5.0); Alkaline Phosphatase 88 U/L (38-126); Aspartate Aminotransferase 23 IU/L (14-36); BUN Creatinine Ratio 25.7 (6-22); Bilirubin Total 0.5 mg/dL (0.2-1.3); Blood Urea Nitrogen 68 mg/dL (7-17); Calcium 8.4 mg/dL (8.4-10.2); Carbon Dioxide 23 mmol/L (22-32); Chloride 102 mmol/L (98-107); Estimated Glomerular Filt Rate 17.1 mL/min (>60); Globulin 2.7 g/dL (1.7-4.1); Glucose 288 mg/dL (80-110); HEMOLYSIS < 15 (0-50); Potassium 3.5 mmol/L (3.4-5.1); Sodium 134 mmol/L (137-145); Total Protein 5.4 g/dL (6.3-8.2)
[2020-11-15] MEDS: AMIODARONE 200 MG TABLET PO (10:00)
[2020-11-15] MEDS: DOCUSATE 100 MG CAPSULE PO ×2 (10:00→20:48)
[2020-11-15] MEDS: PANTOPRAZOLE 40 MG VIAL IV ×2 (10:00→20:49)
[2020-11-15] MEDS: INSULIN LISPRO 100 UNIT/ML 3ML VIAL SUBCUT ×3 (10:02→21:02)
[2020-11-15] MEDS: INSULIN GLARGINE 100 UNIT/ML 3ML PEN 15 UNIT SUBCUT (10:03)
[2020-11-15] MEDS: SODIUM CHLORIDE 0.9% FLUSH 10 ML IV (10:04)
[2020-11-15] MEDS: ENOXAPARIN 30 MG/0.3 ML SYRINGE SUBCUT (10:17)
--- NOTE | 2020-11-15 10:48 | P.PN_ITS ---
Subjective Subjective Date Patient Seen: 11/15/20 Time Patient Seen: 10:50 Interval history: Patient now off oxygen. Sitting up in bed. Still having abdominal pain exacerbated by eating although again liquid seem to be better tolerated. She thought about our discussion yesterday regarding her intra-abdominal mass in abnormality as well as her chronic heart failure and factoring in the fact that she does not want surgery of any sort and the surgeon told her she would be super high risk for any sort of surgery etcetera she decided she really wants to do her best to stay comfortable for the rest of her life but not any more testing or invasive procedures Therefore she declined the MRI and echocardiogram that were ordered yesterday We initiated ongoing discussion about my thoughts about her current condition likelihood of improvement treatable options for was going on in her abdomen as well as with her heart and lungs and or kidneys. Details will be noted below under assessment and plan. Exam Vital Signs (past 8 hours): - 11/15/20 05:00 11/15/20 08:22 11/15/20 09:42 Temperature 98.2 F 98.0 F Pulse Rate 73 58 L 84 Respiratory Rate 16 13 16 Blood Pressure 135/66 143/56 H Pulse Oximetry 96 94 93 Fraction of Inspired Oxygen 25 Oxygen Delivery Method Room Air Oxygen Flow Rate 0 Objective Labs Result Diagrams: 11/15/20 05:45 11/15/20 05:45 Labs: Laboratory Results - last 24 hr 11/14/20 11/15/20 11/15/20 08:45 05:45 05:45 WBC 20.6 H RBC 3.13 L Hgb 8.1 L Hct 25.7 L MCV 81.9 MCH 26.0 MCHC 31.8 RDW 17.6 H Plt Count 112 L Neut % (Auto) 93.6 H Lymph % (Auto) 1.2 L Menard % (Auto) 5.0 Eos % (Auto) 0.0 L Baso % (Auto) 0.2 Neut # (Auto) 66690 H Lymph # (Auto) 300 L Menard # (Auto) 1000 H Eos # (Auto) 0 Baso # (Auto) 0 Sodium 134 L Potassium 3.5 Chloride 102 Carbon Dioxide 23 BUN 68 H Creatinine 2.65 H Estimated GFR 17.1 L BUN/Creatinine Ratio 25.7 H Glucose 288 H D Calcium 8.4 Total Bilirubin 0.5 AST 23 ALT 15 Alkaline Phosphatase 88 Total Protein 5.4 L Albumin 2.7 L Globulin 2.7 Albumin/Globulin Ratio 1.0 Amylase 59 [facility] Medical History Aortic stenosis (06/12/20) CHF (congestive heart failure) Chronic migraine Diabetes mellitus (08/29/13) HTN (hypertension) Hyperlipidemia (08/29/13) Hypothyroid 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 Acute on chronic congestive heart failure-patient's respiratory status is much improved after diuresis. She is now off oxygen maintaining normal oxygen saturation. Given the rapid nature with which she improved I do believe her respiratory issues were almost entirely if not entirely due to congestive heart failure (rather than pneumonia). She is much improved but renal function is a bit more abnormal this morning than it was yesterday even. Were going to need to find a proper dose of diuretic therapy that is tolerated by her renal disease and yet keeps her from collecting fluid Etiology of her congestive heart failure is a bit more unclear to me. She certainly has a significant murmur consistent with probably mitral regurgitation which was classified as severe on previous echo done at [facility]. She also has worsening aortic stenosis and that certainly is a contributing factor. She also had worsening left ventricular function on limited echo done here in October which was significantly different than echo done just a couple weeks prior at [facility]. She also has had a troponin leak altogether which suggest to me she has had ongoing ischemia and maybe infarction. Again not a good candidate for intervention for any of these particular issues with her heart. They can be medically managed and that is what I recommend is aggressive medical management but no invasive procedures. She is in agreement with that. 2. Abdominal pain-I do wonder about her abdominal pain and I believe it more likely than not to be a vascular issue. Perhaps there is indeed pancreatic tumor encircling the celiac axis causing some of the pain but also some vascular issues. That would have been 1 of the benefits of obtaining an MRI but I do not think it would change therapy in any way shape or form as she is not a candidate for surgical procedure as previously noted and her performance status is so poor that I do not believe she is a candidate for any kind of therapy for pancreatic neoplasm. Radiation therapy might make a difference if indeed we could prove that there was a tumor wrapping around the celiac axis but patient would not be willing to have daily radiation therapy treatments in [place] or [place]. If indeed this is a vascular issue there might be some benefit from ongoing anticoagulation which she will continue here in the hospital for now. If that is going to help it may well take another 24-48 hours. However the likelihood of improvement with anticoagulation is really quite minimal. For the moment she is supporting herself nutritionally with liquid nutrition and she should continue that. She is also on broad-spectrum IV antibiotics in effort to treat any intra-abdominal infection however there really is no evidence of any intra-abdominal process. MRI would been helpful in this regard as well but certainly not critical I would do not think. I would advocate discontinuing IV antibiotics for the purpose of treating intra-abdominal process, but would defer that to her PCP tomorrow. 3. Chronic renal failure-I believe patient probably has a higher degree of renal failure than is evident from her creatinine and BUN alone. I believe she is struggling with volume management as a symptom of chronic renal disease that is contributing to her congestive heart failure as above. Obviously creatinine and BUN of bumped up rather rapidly with relatively low-dose diuretic therapy. Altogether I believe these are signs rather severe end-stage kidney disease. There is no particular intervention for this other than careful management other conditions and or medications might impact her renal function which in his case would primarily be diuretic therapy. 4. Diabetes-patient's numbers much improved on lower dose IV steroids. I am going to reduce dose again today. It can probably be discontinued but I will defer that to her PCP tomorrow. I have increased her long-acting insulin as well as increased her coverage insulin hopefully see the course of the day today we will begin to obtain better blood sugar management although again in the overall scope of her medical issues this is relatively minor 5. Question pneumonia-given the rapid nature with which patient improved her respiratory status I doubt that she actually has pneumonia. Does have persistently elevated white count without other clear infectious findings. I would continue with the IV antibiotics for now but have a low threshold for discontinuation of same. 6. Elevated troponin-as above I do think there is ongoing ischemia and probably some infarction as well which is resulted in a new cardiomyopathy as documented during her previous hospitalization. Again medical management is most appropriate. Ongoing use of anticoagulation in the subacute setting can be helpful in this regard as well. 7. Code status-patient previously suggested she would be okay if she need to be intubated for respiratory issues. She clearly now would prefer not to have any sort of resuscitative measures performed and rather allow nature to take its course if she would have a sudden cardiac or respiratory arrest. Therefore she has been changed to a full do not resuscitate status Overall, patient recognizes she has several medical issues that are at end-stage as above. Quality of life is been really quite terrible over the last 6 weeks or so. She been in the hospital now 3 times. She really does not have any obvi ous reversible disease and not a candidate for invasive or treatments that might be more curative or provide long-term benefit. She is really focused on maintaining her quality of life and to that and would really like to meet with hospice and potentially initiate hospice care while continuing obviously to treat as above for her congestive heart failure etcetera. I have initiated hospice referral today and she can discuss this with her PCP Dr. Mahan tomorrow as well. Patient's daughters were present with her as we discussed all of the above and are in absolute agreement. Note: Greater than 45 minutes was spent evaluating the patient on the floor, including examining the patient, discussing clinical course with clinical and nursing staff, reviewing clinical course in the computer, preparing documentation and writing orders for continued management of care, discussing status with family as appropriate, reviewing plans for the next 24 hours with both patient/family and nursing staff as appropriate.
--- NOTE | 2020-11-15 12:28 | CM.DPC ---
Addendum entered by Alaina Dewitt R.N. 11/15/20 14:41: Sp[facility] to Shilpa at [facility] for she was inquiring if patient was on high flow oxygen. Let her know that patient is now off of oxygen, and updated her of plan for patient to go to [facility], possibly tomorrow. Will need to update her upon discharge. Will go ahead and complete PASSR. Original Note: DCP cONT: Hospice referral has been put in by provider today. Discussed with daughter, Jackie, and all in agreement, patient does not wish to have any further testing done. Attempted to reach [facility] , but had been on hold for a while, so went ahead and faxed over the referral, including face sheet, H&P, today's progress note, labs, and med sheets. Had discussion with patient's daughter regarding discharge planning. Daughter stated, she doesn't think [facility] may be the best idea, and not home, but would like to consider having patient go to [facility] private pay with hospice services. Discussed payment, daily rate and down payment, and daughter had already consulted with her sister, Jimena Barroso, who is financial POA, and stated, this is doable for patient. Gave her September's phone number, in admissions at [facility], and this lead case manager updated September as well. She mentioned that patient will need to come over on p.o. meds, no IV meds. She is awaiting call back from daughter with details of visitation. Let Purvi know that patient can possibly be ready by tomorrow. On fax to hospice, let them know maria fernanda plan is for [facility]. P: DCP to continue to follow. Plan is for patient to go to [facility] with [facility] on private pay. Alaina Dewitt, GUERLINE/Principal Librarian
--- NOTE | 2020-11-15 12:30 | PT-IP ANOTE ---
Pt refused therapy in am. Will return in afternoon to check in with her again.
--- NOTE | 2020-11-15 14:27 | PT.IPTN ---
Current Diagnoses Pneumonia, unspecified organism (11/12/20) Physical Therapy Treatment Note M2 PT-IP Current Condition Start: 11/14/20 12:54 Freq: NEEDED Status: Active Protocol: Document 11/14/20 12:00 AB (Rec: 11/14/20 13:11 AB [id number]) Physical Therapy Current Condition Current Condition Evaluation Date 11/14/20 Treatment Diagnosis CHF; PNA; difficulty in walking Onset Date 11/12/20 Precautions Other Precautions O2 sat M3 PT-IP Subjective Start: 11/14/20 12:54 Freq: NEEDED Status: Active Protocol: Document 11/15/20 14:15 LJ (Rec: 11/15/20 14:27 LJ [id number]) Subjective Physical Therapy Visit Type Type Treatment Note Visit Start Time 13:57 Visit Stop Time 14:12 Total Visit Minutes 15 Physical Therapy Visit Comments Patient Comments pt is agreeable to do PT Therapy Pain Assessment Pain When Pain Assessed At Rest Pain Present Pain Present Pain Reported M4 PT-IP Mobility and Gait Start: 11/14/20 12:54 Freq: NEEDED Status: Active Protocol: Document 11/15/20 14:15 LJ (Rec: 11/15/20 14:27 LJ [id number]) PT-Bed Mobility Assessment Supine to Sit Supine to Sit Moderate Assistance,1 Person Assistance,Head of Bed Elevated,Bedrails Sit to Supine Sit to Supine Moderate Assistance,1 Person Assistance,Head of Bed Elevated Scooting Scooting to Edge of Bed Moderate Assistance Scooting Up and Down in Bed Dependent PT-Transfer Assessment Sit to and From Stand Sit to and from Stand Minimal Assistance,1 Person Assistance,Use of Upper Extremities Equipment Transfer Assistive Device Gait Belt,Front Wheeled Walker Orthotic/Prosthetic Devices or Brace: No Transfers Transfer Destination Bed Transfer Technique sat down Transfer Ability Level of Assist Minimal Assistance,1 Person Assistance,Use of Upper Extremities Comments Mobility Comments Pt required ModA x1 to swing LEs over side of bed. Pt performed LE exercises in seated position while sitting on EOB. Bakari x1 for sit<> stand. Pt used bottom rung of FWW to push herself to standing while FWW braced by SALES [employer]PERATIONS LEAD. Pt stood for 4 minutes performing intermittent marching exercises coupled with rest breaks. Pt requested to return to bed. With head of bed elevated and assist with LEs, pt returned to supine position. Required MaxA x2 to scoot to head of bed. Call light and table placed within reach. M5 PT-IP Objective Assessments Start: 11/14/20 12:54 Freq: NEEDED Status: Active Protocol: Document 11/14/20 12:00 AB (Rec: 11/14/20 13:11 AB [id number]) Orientation Orientation/Cognition Level of Alertness Alert Orientation Name,Place,Situation Language Function Ability Hard of Hearing Safety Awareness Decreased Safety Awareness Gross Range of Motion Lower Extremity ROM Assessment Within Functional Limits Strength Lower Extremity Strength Assessment Bilaterally Impaired Hip 3+/5 Knee 3+/5 Muscle Tone Muscle Tone WNL Yes M6 PT-IP Treatment Start: 11/14/20 12:54 Freq: NEEDED Status: Active Protocol: Document 11/15/20 14:15 LJ (Rec: 11/15/20 14:27 LJ [id number]) Physical Therapy Treatment Education Education Provided Safety M7 PT-IP Assessment and Plan Start: 11/14/20 12:54 Freq: NEEDED Status: Active Protocol: Document 11/15/20 14:15 LJ (Rec: 11/15/20 14:27 LJ [id number]) PT Summary Assessment and Plan Potential Rehabilitation Potential Good Status of Condition at Evaluation Evolving Summary Impairments Pain,ROM,Strength,Balance, Coordination,Sensation,Tone, Cognition,Bed Mobility, Transfers,Gait,Activity Tolerance Assessment Summary Pt requiring ModA x1 for bed mobility other than scooting to head of bed. Bakari x1 for transfers and standing exercises. No SOB during treatment session. Pt will require SNF rehab to improve overall strength, activity tolerance, and functional mobility. Goals Bed Mobility Goal Standby Assistance Transfer Goal Standby Assistance,Front Wheeled Walker Gait Goal Standby Assistance,Front Wheel Walker Gait Distance 100 Other Goals improve ambulation using 4WW 150 ft SBA up/down 7 steps 1 rail SBA Days to Meet Goals 10 Frequency of Treatment Frequency Of Treatment Once a Day Treatment Plan Physical Therapy Treatment Plan Bed Mobility Training,Transfer Training,Gait Training, Therapeutic Exercise,Balance Retraining,Discharge Planning, Hot or Cold Pack,Neuromuscular Re-ed,Coordination Retraining Precautions Other Precautions O2 sat Recommendations To Nursing Amount of Assist Needed 2 Person Assist Discharge Recommendations PT Discharge Recommendations SNF Rehab
[2020-11-16] VITALS (7 sets, daily range): BP systolic 129–154; BP diastolic 50–68; PULSE 69–75; RESP 16–18; TEMP 36.6–37.6; O2SAT 94–97
--- NOTE | 2020-11-16 04:30 | PC.NURSE ---
Patients BG at 0233 was 262, then at recheck when RN was notified at 0400, BG was 254. Patient was asked if she wanted insulin since she likes to determine what is given. Patient declined wanting any insulin and would like to wait for morning dose. Vp Delivery was notified and said that it was fine.
[2020-11-16] MEDS: PIPERACILLIN/TAZO 3.375 GM in SODIUM CHLORIDE 0.9% 100 ML 25 ML IV (05:28)
[2020-11-16 05:56] LABS: BUN Creatinine Ratio 25.7 (6-22); Blood Urea Nitrogen 78 mg/dL (7-17); Carbon Dioxide 22 mmol/L (22-32); Chloride 103 mmol/L (98-107); Estimated Glomerular Filt Rate 14.6 mL/min (>60); Glucose 295 mg/dL (80-110); HEMOLYSIS < 15 (0-50); Potassium 3.2 mmol/L (3.4-5.1); Sodium 133 mmol/L (137-145)
[2020-11-16 06:05] LABS: NT-proBNP (BNP-Adult 18+) 15600 pg/mL (<450)
--- NOTE | 2020-11-16 08:28 | P.PN_ITS ---
Subjective Subjective Date Patient Seen: 11/16/20 Time Patient Seen: 08:28 Interval history: Patient overall feeling okay this morning. Somewhat down. Realizes that this is going to be a difficult time. And that her medical issues are difficult. Otherwise is alert and oriented. Has had no nausea or vomiting. Has not been able to eat anything. Other than clear fluid. Abdominal pain still present but controlled. Breathing comfortably. No other change Exam Vital Signs (past 8 hours): - 11/16/20 04:46 11/16/20 07:42 Temperature 97.9 F Pulse Rate 74 74 Respiratory Rate 16 16 Blood Pressure 139/53 L Pulse Oximetry 94 94 Fraction of Inspired Oxygen 25 Oxygen Delivery Method Room Air Oxygen Flow Rate 0 Narrative Exam Narrative: Alert female in no acute distress sitting bed. Mucous membranes moist. Neck supple without adenopathy lungs are clear. Heart regular rate and rhythm with unchanged murmur. Abdomen is soft positive bowel sounds with diffuse pain primarily right upper and lower quadrant no rebound. About the same as it was last week. Extremities with significant edema both upper and lower extremities with continued fluid leakage from her legs bilaterally. 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 Patient seems to be breathing comfortably and is off O2. Issue is her creatinine is not good and she starting to feel more edematous. Will need to give her Lasix 20 mg and see. Her creatinine is not improving. This is a very difficult situation probably will be terminal secondary to a combination of congestive heart failure and renal failure patient is not interested in more aggressive therapy at this time. Patient has discussed this with both me and Dr. Talbot and agrees with approach. Abdominal pain. Biggest issue going on at this time. Not improve. Unable to eat. Probably vascular given the lack of findings and most definitive pain syndrome. No other significant issues or changes no evidence of infection will discontinue IV antibiotics and will follow. Certainly not a candidate for aggressive surgical intervention which she has already discussed both with the surgeon and myself. This point will continue to follow. Make comfortable. Pancreatic mass. Probable pancreatic cancer. May be impacting her abdominal pain but I do not think so. Certainly has impact on longevity. This point no further workup patient does not want MRI. We have S decided on no further treatment. Hypokalemia. Will replace IV. Unable to takes consistent p.o.. Re-evaluate in a.m.. Chronic renal failure acute on chronic worsening. Certainly at its worst at this point she still making urine but I am not sure how long that will be. Her biggest concern is breathing issues will give a low dose of Lasix a day orally and see how she does. Re-evaluate in a.m.. Type 2 diabetes. Stable. No issue at this time. Will continue current therapy. Infectious disease. Does not appear to be an infection in the abdomen does not appear to be as active pneumonia. Were going to discontinue antibiotics unclear why elevated white count but will follow. Elevated troponin this is probably some infarction with new cardiomyopathy that is worsened. Due to her renal failure she has not a significant candidate for intervention and along with her abdominal pain. We will follow. Code status no code. Disposition. At this point we had a long discussion today Dr. Talbot has discussed with her and were approaching hospice. Question will be where that will be and how that will be done. Will discontinue antibiotics today will replace potassium will give low-dose Lasix will discuss with manage care. 45 minute spent in discussion with patient manage care and documentation.
[2020-11-16 08:55] LABS: Hematocrit 26.8 % (36-46); Hemoglobin 8.7 g/dL (12.0-16.0); Mean Corpuscular HGB Conc 32.5 % (30-36); Mean Corpuscular Hemoglobin 26.4 PG (26-34); Platelet Count 125 X10^3/uL (150-400); Red Blood Cell Count 3.31 X10^6/uL (4.0-5.2); Red Cell Distribution Width 17.4 % (11.6-14.8); White Blood Cell Count 19.1 X10^3/uL (4.5-11.0)
[2020-11-16 08:57] LABS: Add Manual Diff / Slide Review YES
[2020-11-16 09:04] LABS: BUN Creatinine Ratio 26.2 (6-22); Blood Urea Nitrogen 78 mg/dL (7-17); Calcium 8.3 mg/dL (8.4-10.2); Carbon Dioxide 22 mmol/L (22-32); Chloride 102 mmol/L (98-107); Estimated Glomerular Filt Rate 14.9 mL/min (>60); Glucose 310 mg/dL (80-110); HEMOLYSIS < 15 (0-50); Potassium 3.3 mmol/L (3.4-5.1); Sodium 133 mmol/L (137-145)
[2020-11-16] MEDS: POTASSIUM CHLORIDE IN WATER 10 MEQ/100 ML PIGGYBACK 100 MEQ IV ×4 (09:37→12:51)
[2020-11-16] MEDS: ENOXAPARIN 30 MG/0.3 ML SYRINGE SUBCUT (09:39)
[2020-11-16] MEDS: INSULIN GLARGINE 100 UNIT/ML 3ML PEN 15 UNIT SUBCUT (09:39)
[2020-11-16] MEDS: DOCUSATE 100 MG CAPSULE PO ×2 (09:39→20:45)
--- NOTE | 2020-11-16 09:39 | PT-IP ANOTE ---
Pt refused treatment in am
[2020-11-16] MEDS: INSULIN LISPRO 100 UNIT/ML 3ML VIAL SUBCUT ×3 (09:40→17:03)
[2020-11-16] MEDS: PANTOPRAZOLE 40 MG VIAL IV ×2 (09:40→20:45)
[2020-11-16] MEDS: AMIODARONE 200 MG TABLET PO (09:41)
[2020-11-16] MEDS: FUROSEMIDE 20 MG TABLET PO (09:41)
[2020-11-16 09:42] LABS: Anisocytosis 1+; Neutrophils Absolute Manual 17190 /uL (3000-5900); Poikilocytosis 2+; Polychromasia 1+; Schistocytes 1+; Total Cells Counted 100
--- NOTE | 2020-11-16 11:30 | CM.DPC ---
DCP Cont Hospice Planning: Per MD, wanting to stabilize pt's potassium and labs today with plan of d/c to [facility] tomorrow. AVA called [facility] and confirmed that they can accept pt tomorrow 11/17/20 under Medicare Comfort benefits until [facility] can open pt to service and switch to [facility]. September confirmed that she has spoken with Dtr Jackie regarding PP cost and plan for visitation. AVA called Hospice and left msg to confirm when they have an opening to start pt to service. SW met bedside with pt and two Dtrs Jimena and Jackie and confirmed above and likely plan of d/c tomorrow to [facility] for comfort care and all in agreement with d/c plan and with Hospice after d/c. SW discussed mode of transport of facility cabulance vs BLS as pt reported pain yesterday with sitting upright. SW discussed the possibility of [facility] not fully covering BLS transport and pt and Dtrs preference is to assess pt in the morning to determine if she could safely utilize cabulance across the street to [facility] in the morning pending how pt feels. AVA received a call back from [facility] who confirms they received referral over the w/e and will attempt to call pt's Dtrs and have pt on speaker phone for Info Visit and answer questions today and they have a likely opening for Mon11/18/20 and will coordinate with [facility] for start date and time and just need d/c summary faxed to them at discharge and currently no further needs from AVA. AVA requested RN get updated COVID per [facility] requirements and RN kindly swabbed pt today 11/16/20 in anticipation of d/c to SNF tomorrow. Plan: SW to follow in the morning to determine mode of transport needed for discharge to [facility] via cabulance vs BLS and faxing Hospice d/c summary. BIN Singh
[2020-11-16 11:45] LABS: COVID19 - ADMIT (NP swab/PCR) Negative (Negative)
--- NOTE | 2020-11-16 15:51 | PT-IP ANOTE ---
Reviewed the chart and had a aleena discussion with Ms. Orta about her treatment goals. Pt clearly stated she no longer wished to participate with therapy services. PT will discharge orders at this time.
[2020-11-16] MEDS: SODIUM CHLORIDE 0.9% FLUSH 10 ML IV (20:45)
[2020-11-17] VITALS: BP 139/60; PULSE 76; RESP 17; TEMP 36.8; O2SAT 95
[2020-11-17 04:00] VITALS: BP 137/52; PULSE 76; RESP 17; TEMP 37.3; O2SAT 96
[2020-11-17 08:21] VITALS: BP 137/65; PULSE 82; RESP 21; TEMP 36.2; O2SAT 93
[2020-11-17] MEDS: AMIODARONE 200 MG TABLET PO (09:13)
[2020-11-17] MEDS: PANTOPRAZOLE 40 MG VIAL IV (09:14)
[2020-11-17] MEDS: SODIUM CHLORIDE 0.9% FLUSH 10 ML IV (09:16)
--- NOTE | 2020-11-17 09:28 | CM.DPC ---
Addendum entered by Anahy Stover LPN 11/17/20 11:23: Cert of Med Necessity transport form filled out and [facility] will pick pt up at 1300. All are updated. Addendum entered by Anahy Stover LPN 11/17/20 11:18: Called to room by GUERLINE Vazquez as pt is now saying she cannot tolerate attempt to sit up in a w/c. Confirmed same with pt who states she feels she can only manage the transfer by ambulance. Her daughter Jimena confirms same, says mom is just is too weak to manage this. If Medicare will not cover this we will pay whatever is needed. We just want the best for her. Dr. Mahan is agreeable to whatever the pt and care team think is best mode of transport. Original Note: DCP: continued: pt with a d/c order for [facility]. EMR reviewed and followed up on details for d/c. Confirmed pt and her daughters prefer w/c van and with use of lucita lift if needed. GUERLINE Vazquez is updated. Orders, PASRR and Covid - test re faxed. IMM #2 presented to daughter Jackie and her sister who remain agreeable to the d/c for today (as does pt.) Daughters confirm that they have a conference call with [facility] this morning. [facility] is updated. Will call back on time of transport.
[2020-11-17] MEDS: ENOXAPARIN 30 MG/0.3 ML SYRINGE SUBCUT (10:22)
[2020-11-17] MEDS: INSULIN GLARGINE 100 UNIT/ML 3ML PEN 15 UNIT SUBCUT (10:26)
[2020-11-17] MEDS: INSULIN LISPRO 100 UNIT/ML 3ML VIAL SUBCUT (10:26)
--- NOTE | 2020-11-17 10:30 | PC.NURSE ---
Helped primary Rn with AM med pass. Assisted patient to use bedpan, she states she is having loose stools today. Patient has a phone call meeting with her family and hospice and she is now taking her insulin as ordered for a late breakfast. Call light within reach.
--- NOTE | 2020-11-17 11:28 | PC.NURSE ---
Day shift: Report given Liz at [facility] at approx 1130. All questions answered.
--- NOTE | 2020-11-17 13:08 | PC.NURSE ---
Day shift: Pt left unit at approx 1315 with S transport team. Pt has all personal belongings. Transport team has SNF packet. Pt stated I will miss you all here.
--- NOTE | 2020-11-17 13:24 | P.DS_ITS ---
History of Present Illness History of Present Illness Date Patient Seen: 11/17/20 Time Patient Seen: 08:15 Date of Onset of Symptoms: 12/10/20 Chief complaint: Abd pain Narrative: Please see history and physical dictated by me 11/13/2020 Discharge Providers Provider Date of admission: 11/12/20 18:24 Discharge Date: 11/17/20 Primary care physician: Benigno Mahan MD Consults: 11/12/20 21:27 Consult to Discharge Planning Routine Comment: Consult to Physical Therapy Evaluate & Treat Comment: Physician Instructions: Evaluate and Treat 11/12/20 21:31 Consult to Respiratory Therapy Evaluate & Treat Comment: Physician Instructions: Evaluate and treat 11/15/20 10:49 Consult to Hospice Referral Routine Comment: 11/16/20 08:26 Consult to Hospice Referral Routine Comment: 11/16/20 08:27 Consult to Wound Care Routine Comment: care for sever leg edema Consulting Provider: [facility] Discharge provider: Benigno Mahan MD Summary Hospital Course Discharge Diagnosis: Acute on chronic congestive heart failure Abdominal pain Pancreatic mass Hypokalemia Acute on chronic renal failure Type 2 diabetes Elevated white count Elevated troponin Hospital Course: Acute on chronic congestive heart failure. Left heart patient was brought in and moderately aggressive IV Lasix was used to improve her respiratory status. It was markedly improved over the course of the 1st 48 hours. Due to her renal failure we had to back out of her diuresis and is was switched to 20 mg once a day 2 days prior to discharge was still doing well. She completely had came off her oxygen requirement which was quite high when she was admitted. It was felt to be secondary more to her congestive heart failure than possible pneumonia. Chest x-ray did not show any definitive change in her pneumonia. And there was no other significant change. Due to the fact that she was having significant edema significant renal failure with need to treat her congestive heart failure after a discussion it was elected that she would not push harder and was requesting hospice service. We discussed this. And hospice was set up. We will continue on her 20 mg of Lasix once a day. Abdominal pain. Patient was with pretty significant abdominal pain on admission. CT scan did not show any abnormality ultrasound did not show any abnormality she did have an elevated white count and she was placed on treatment with broad come free which antibiotics and her white count did improve her abdominal pain did improve surgical consult was under taken and due to her multiple medical problems which were quite severe surgical intervention would have been probably life ending. We discussed with patient. No definitive diagnosis was made but was felt to be secondary to vascular issues and we will feed her as tolerated. May be related to her pancreatic mass but is unclear. Pancreatic mass. Probable pancreatic cancer. After discussion with patient she elected for hospice did not want further workup. No further workup was done. Hypokalemia. Patient was replaced with IV route potassium and then placed on oral. Chronic renal failure worsening while she was here. Pretty significantly. Creatinine into the threes. This was a significant worsening then she had had previously. Due to the fact that to get her to breathe we had to be relatively aggressive with her diuretics this is felt to be secondary to pre renal and an issue because we have to continue to give her Lasix. Patient did not want to have dialysis. We did discuss that with her. Due to the fact that she prior h as pancreatic cancer and the fact that her heart is failing at a significant rate with no ability to make intervention it was elected to not pursue any further. Type 2 diabetes. Stable. Elevated white count. Patient had elevated white count throughout her admission did not improve at all with treatment. Whether this is from a difficult to treat abscess in her abdomen or other changes it is unclear but CT scan did not show this. Does not a P to be secondary to her pneumonia. At this point patient requests no further workup no further antibiotics and they were discontinued. Elevated troponin. We had previously discussed this with Cardiology. They felt it was secondary to a demand issue. I suspect she did have some ischemic disease but due to the fact that she is having significant failure significant renal failure and a probable pancreatic mass patient did not want further intervention and will make comfortable and follow from there. Peripheral edema. Probably secondary to congestive heart failure although I do believe there is some venous insufficiency. We will continue to use p.o. Lasix elevation and due to the fact that she is going with hospice no further ag gressive management was pushed. We did discuss wound care but at this point and will not need to do. Disposition patient will be transferred to [facility] on hospice. She is comfortable with this to schedule an. Basic medication will be done. Hospice will be involved and we will follow from there. Patient is comfortable at this time. Exam Vital Signs (past 8 hours): - 11/17/20 08:21 Temperature 97.2 F L Pulse Rate 82 Respiratory Rate 21 Blood Pressure 137/65 Pulse Oximetry 93 Fraction of Inspired Oxygen 25 Oxygen Delivery Method Room Air Oxygen Flow Rate 0 Narrative Exam Narrative: Alert smiling dishevelled female in no acute distress. Lungs are clear. Heart is unchanged murmur. Abdomen is soft positive bowel sounds with continued significant pain on the right side with no rebound guarding or masses extremities are continued to be swollen. 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 After discussion we elected for hospice please see above. Discharge Plan Discharge Plan Patient Disposition: SNF Transfer to: [facility] Under care of provider: Dr. Mahan Provider Discharge Comment: Going to [facility] with hospice. Goal is comfort Discharge orders & Medications Prescriptions: New potassium chloride [Klor-Con M20] 20 mEq Tablet,Er Particles/Crystals 20 meq PO DAILYCC Qty: 30 RF: 0 Continued ezetimibe [Zetia] 10 MG tablet 10 mg PO DAILY Qty: 0 RF: 0 insulin lispro [Humalog U-100 Insulin] 100 UNIT/1 ML solution See Protocol sliding scale dose SUBCUT DIRECTED PRN (Reason: sliding scale) Qty: 0 RF: 0 allopurinol [Zyloprim] 100 mg tablet 300 mg PO DAILY RF: 0 levothyroxine [Synthroid] 125 mcg tablet 125 mcg PO DAILY RF: 0 colchicine [Colcrys] 0.6 mg Tablet See Rx Instructions .ROUTE .COMPLEX MDD 3 tab PRN (Reason: Gout) RF: 0 amlodipine [Norvasc] 5 mg tablet 10 mg PO DAILY RF: 0 rosuvastatin 10 mg tablet 5 mg PO BEDTIME RF: 0 pantoprazole 20 mg tablet,delayed release (DR/EC) 40 mg PO DAILY@0700,2100 RF: 0 amiodarone 200 mg Tablet 200 mg PO DAILY RF: 0 (DME) FreeStyle Thomas 14 Day Sensor Kit MISCELLANEOUS RF: 0 acetaminophen [Tylenol] 325 mg Tablet 325 mg PO PRN PRN (Reason: pain) RF: 0 Lantus Solostar U-100 Insulin 100 unit/mL (3 mL) insulin pen 14 unit SUBCUT QPM RF: 0 furosemide [Lasix] 20 mg tablet 40 mg PO BID RF: 0 potassium chloride [Klor-Con M20] 20 mEq Tablet,Er Particles/Crystals 20 meq PO DAILYCC Qty: 60 RF: 1 hydralazine 25 mg Tablet 25 mg PO Q8HR Qty: 60 RF: 3 Lantus Solostar U-100 Insulin 100 unit/mL (3 mL) Insulin Pen 10 unit SUBCUT DAILY Qty: 3 RF: 0 prednisone 20 mg Tablet 20 mg PO DAILY Qty: 100 RF: 0 Follow up/Referrals: Benigno Mahan MD [Primary Care Provider] - 1 Week (I will visit at [facility]) Discharge Health Status Multidrug resistant organism: No MDRO Precautions: [place] Diet/Activity/Treatments Diet: Diet as Tolerated Liquid consistency: Normal/Thin Food texture: Regular Activity: as tolerated Catheter: 2-way Alejandro Catheter comment: comfort care Skin/Wound/Dressing Care Skin care: rotate as needed. legs need elevation [facility] Restrictions to mobility: weakness Visit Report/Discharge Packet Instructions: DI for Heart Failure Discharge Data Primary Care Provider: Benigno Mahan
== END 2020-11-17 13:15 | DRG 189 ==
LOC: ED 17:55 → AC 18:25
PROVIDERS: Internal Medicine; Specialist; Admitting Provider Student in an Organized Health Care Education/Training Program; Emergency Provider Emergency Medicine; PCP Family Medicine; Referring Provider Emergency Medicine; Visit Provider Family Medicine
DX: J96.01 Acute respiratory failure with hypoxia (principal); I50.33 Acute on chronic diastolic (congestive) heart failure; I13.0 Hypertensive heart and chronic kidney disease with heart failure and stage 1 through stage 4 chronic kidney disease, or unspecified chronic kidney disease; N17.9 Acute kidney failure, unspecified; C25.9 Malignant neoplasm of pancreas, unspecified; I24.8 Other forms of acute ischemic heart disease; D69.6 Thrombocytopenia, unspecified; M35.3 Polymyalgia rheumatica; E11.65 Type 2 diabetes mellitus with hyperglycemia; N18.30 Chronic kidney disease, stage 3 unspecified; E03.9 Hypothyroidism, unspecified; R10.11 Right upper quadrant pain; E86.0 Dehydration; K59.00 Constipation, unspecified; I48.0 Paroxysmal atrial fibrillation; D64.89 Other specified anemias; E87.6 Hypokalemia; E78.5 Hyperlipidemia, unspecified; Z20.822 Contact with and (suspected) exposure to COVID-19; Z79.4 Long term (current) use of insulin; Z66 Do not resuscitate; Z79.52 Long term (current) use of systemic steroids
CPT/HCPCS: 36415; 36600; 71045; 74019; 74176; 76700; 80048; 80053; 81001; 81003; 82150; 82550; 82805; 82962; 83605; 83690; 83735; 83880; 84100; 84145; 84484; 85007; 85025; 87635; 93005; 96361; 96374; 96375; 96376; 97110; 97162; 99233; 99284; 99285; C9803; C9113; J0696; J1650; J1815; J1940; J2270; J2405; J2543; J2920; J3010

== ENCOUNTER → 2021-02-12 13:50 | Outpatient (ROUT) | payer OTHER, MEDICARE, SELFPAY ==
[2020-11-12 21:31] VITALS: BMI 26.0
[2021-02-12 14:23] LABS: BUN Creatinine Ratio 36.8 (6-22); Blood Urea Nitrogen 71 mg/dL (7-17); Calcium 8.6 mg/dL (8.4-10.2); Carbon Dioxide 28 mmol/L (22-32); Chloride 94 mmol/L (98-107); Estimated Glomerular Filt Rate 24.6 mL/min (>60); Glucose 241 mg/dL (80-110); HEMOLYSIS < 15 (0-50); Potassium 3.9 mmol/L (3.4-5.1); Sodium 132 mmol/L (137-145)
== END ==
PROVIDERS: Visit Provider Family Medicine
DX: I50.9 Heart failure, unspecified (principal); I35.0 Nonrheumatic aortic (valve) stenosis; N18.4 Chronic kidney disease, stage 4 (severe)
CPT/HCPCS: 80048

== ENCOUNTER → 2021-02-16 12:58 | Outpatient (ROUT) | payer OTHER, MEDICARE, SELFPAY ==
[2020-11-12 21:31] VITALS: BMI 26.0
[2021-02-16 13:21] LABS: Hematocrit 31.2 % (36-46); Hemoglobin 10.1 g/dL (12.0-16.0); Mean Corpuscular HGB Conc 32.4 % (30-36); Mean Corpuscular Hemoglobin 26.2 PG (26-34); Mean Corpuscular Volume 80.7 fL (80-100); Platelet Count 123 X10^3/uL (150-400); Red Blood Cell Count 3.86 X10^6/uL (4.0-5.2); Red Cell Distribution Width 18.2 % (11.6-14.8)
[2021-02-16 13:29] LABS: White Blood Cell Count 33.9 X10^3/uL (4.5-11.0)
== END ==
PROVIDERS: Visit Provider Family Medicine
DX: N18.30 Chronic kidney disease, stage 3 unspecified (principal)
CPT/HCPCS: 85027